=== PATIENT | female | born 1960 | race African-American/Black ===

== ENCOUNTER 2016-09-24 05:16 | Emergency (ER) | payer OTHER ==
[2016-09-24 05:34] VITALS: BMI 41.1
--- NOTE | 2016-09-24 06:04 | PDOC ---
[id number] SWELLING/LEGS Time Seen by Provider: 09/24/16 05:25 History Source: Patient Exam Limitations: No Limitations - History of Present Illness Initial Comments: 09/24/16 05:55 56yo Female patient with PmHx: HTN, and post-menopausal seizures. 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 Patient states she experienced Seizure for 2 hours & 45 mins on Tu, but did not seek any medical treatment. She reports taking Oxycarbazepine 150mg BID. Patient reports feeling fine up until this morning due to upper and lower extremity swelling. Patient denies Calcium Channel Blockers or Prednisone use at this time. Patient just recently moved from the [place] to [facility] and was getting her medications from [facility], at this time she is receiving them from [facility] and believe symptoms maybe related to change in pharmacy. Patient denies any other complaints at this time. LNMP: 3 years ago. Past History - Travel Traveled outside of the country in the last 30 days: No Close contact w/someone who was outside of country & ill: No - Past Medical History Allergies/Adverse Reactions: Allergies Allergy/AdvReac Type Severity Reaction Status Date / Time levetiracetam [From Keppra] AdvReac Verified 09/24/16 05:31 phenytoin sodium AdvReac Verified 09/24/16 05:31 [From Dilantin] phenytoin sodium extended AdvReac Verified 09/24/16 05:31 [From Dilantin] Home Medications: Ambulatory Orders Aspirin [ASA -] 81 mg PO DAILY 12/29/15 Brimonidine Tartrate [Alphagan 0.15% -] 1 drop OD BID 12/29/15 Oxcarbazepine 150 mg PO BID 12/29/15 Timolol 0.5% [Timoptic 0.5%] 1 drop OU DAILY 12/29/15 Metoprolol Tartrate [Lopressor -] 50 mg PO BID #60 tab 09/24/16 Nifedipine [Procardia Xl] 60 mg PO DAILY #30 tab 09/24/16 CVA: Yes (Right hemmohagic stroke 2005 - residual loss of left peripheral vision) HTN: Yes Hypercholesterolemia: Yes Seizures: Yes (Post-CVA) - Psycho/Social/Smoking Cessation Hx Anxiety: No Suicidal Ideation: No Smoking History: Never smoked Have you smoked in the past 12 months: No Hx Alcohol Use: No Drug/Substance Use Hx: No Substance Use Type: None Review of Systems - Review of Systems Able to Perform ROS?: Yes Is the patient limited Malagasy proficient: No Constitutional: No: Chills, Fever, Malaise, Weakness HEENTM: No: Blurred Vision, Double Vision Respiratory: No: Cough, Orthopnea, Shortness of Breath, Stridor, Wheezing Cardiac (ROS): Yes: Edema. No: Chest Pain, Lightheadedness, Palpitations, Syncope, Chest Tightness ABD/GI: No: Constipated, Diarrhea, Nausea, Poor Appetite, Poor Fluid Intake, Vomiting, Abdominal cramping : No: Burning, Dysuria, Discharge, Frequency, Flank Pain, Hematuria, Pain, Urgency Musculoskeletal: No: Back Pain Integumentary: No: Bruising, Erythema, Rash Neurological: Yes: Headache, Seizure. No: Numbness, Paresthesia, Tingling, Tremors, Weakness, Ataxia, Dizziness *Physical Exam - Vital Signs Last Vital Signs Temp Pulse Resp BP Pulse Ox 63 18 133/90 99 09/24/16 05:33 09/24/16 05:33 09/24/16 05:33 09/24/16 05:33 - Physical Exam General Appearance: Yes: Nourished, Appropriately Dressed. No: Apparent Distress, Mild Distress, Moderate Distress, Severe Distress Neck: positive: Trachea midline, Supple. negative: Rigid, Decreased range of motion, Stridor, Lymphadenopathy (R), Lymphadenopathy (L) Respiratory/Chest: positive: Lungs Clear, Normal Breath Sounds. negative: Respiratory Distress, Accessory Muscle Use, Labored Respiration, Rapid RR Cardiovascular: positive: Regular Rhythm, Regular Rate, Edema. negative: JVD, Murmur, Tachycardia Gastrointestinal/Abdominal: positive: Normal Bowel Sounds, Soft. negative: Distended, Guarding, Rebound, Tenderness Musculoskeletal: positive: Normal Inspection. negative: CVA Tenderness Extremity: positive: Normal Inspection, Normal Range of Motion, Pedal Edema, Swelling. negative: Delayed Capillary Refill, Calf Tenderness, Erythema, Inflammation Integumentary: positive: Normal Color, Dry, Warm. negative: Hives, Swelling, Bruising Neurologic: positive: inspector heating and refrigeration II-XII NML intact, Fully Oriented, Alert, Normal Mood/ Affect, Normal Response, Motor Strength 5/5 ED Treatment Course - LABORATORY CBC & Chemistry Diagram: 09/24/16 06:17 09/24/16 07:24 - RADIOLOGY Radiology Studies Ordered: Category Date Time Status HEAD CT WITHOUT CONTRAST [CT] Stat CT Scan 09/24/16 05:52 Ordered *DC/Admit/Observation/Transfer Diagnosis at time of Disposition: Edema Qualifiers: Edema type: unspecified Qualified Code(s): R60.9 - Edema, unspecified - Discharge Dispostion Disposition: HOME Condition at time of disposition: Good Admit: No - Prescriptions Prescriptions: Metoprolol Tartrate [Lopressor -] 50 mg PO BID #60 tab Nifedipine [Procardia Xl] 60 mg PO DAILY #30 tab - Referrals Referrals: Lenard Mcrae MD [Staff Physician] - Aditi Roger MD [Primary Care Provider] - - Patient Instructions Printed Discharge Instructions: DI for Peripheral Edema -- Bilateral Additional Instructions: Please follow-up with your primary doctor and Dr. Mcrae of neurology
[2016-09-24 06:28] LABS: BASOPHIL 0.5 % (0-2.0); EOSINOPHIL 1.7 % (0-4.5); MCHC 33.4 g/dl (32.0-36.0); MEAN CELL VOLUME 74.6 fl (80-96); MEAN PLT VOLUME 8.2 fl (7.5-11.1); NEUTROPHILS 52.7 % (42.8-82.8); PLATELET COUNT 367 K/MM3 (134-434); RDW 18.3 % (11.6-15.6); WHITE BLOOD COUNT 11.7 K/mm3 (4.0-10.0)
--- NOTE | 2016-09-24 07:31 | PDOC ---
History of Present Illness - General Chief Complaint: Edema Stated Complaint: SWELLING/LEGS Time Seen by Provider: 09/24/16 05:25 History Source: Patient - History of Present Illness Associated Symptoms: denies: chest pain, cough, fever/chills, nausea/vomiting, shortness of breath Past History - Past Medical History Allergies/Adverse Reactions: Allergies Allergy/AdvReac Type Severity Reaction Status Date / Time levetiracetam [From Keppra] AdvReac Verified 09/24/16 05:31 phenytoin sodium AdvReac Verified 09/24/16 05:31 [From Dilantin] phenytoin sodium extended AdvReac Verified 09/24/16 05:31 [From Dilantin] Home Medications: Ambulatory Orders Aspirin [ASA -] 81 mg PO DAILY 12/29/15 Brimonidine Tartrate [Alphagan 0.15% -] 1 drop OD BID 12/29/15 Metoprolol Tartrate [Lopressor -] 50 mg PO BID 12/29/15 Nifedipine [Procardia Xl] 60 mg PO HS 12/29/15 Oxcarbazepine 150 mg PO BID 12/29/15 Timolol 0.5% [Timoptic 0.5%] 1 drop OU DAILY 12/29/15 CVA: Yes (Right hemmohagic stroke 2006 - residual loss of left peripheral vision) HTN: Yes Hypercholesterolemia: Yes Seizures: Yes (Post-CVA) - Psycho/Social/Smoking Cessation Hx Anxiety: No Suicidal Ideation: No Smoking History: Never smoked Have you smoked in the past 12 months: No Hx Alcohol Use: No Drug/Substance Use Hx: No Substance Use Type: None Review of Systems - Review of Systems Is the patient limited Mosotho proficient: No *Physical Exam - Vital Signs Last Vital Signs Temp Pulse Resp BP Pulse Ox 63 18 133/90 99 09/24/16 05:33 09/24/16 05:33 09/24/16 05:33 09/24/16 05:33 ED Treatment Course - LABORATORY CBC & Chemistry Diagram: 09/24/16 06:17 09/24/16 06:17 - ADDITIONAL ORDERS Additional order review: Laboratory Results 09/24/16 06:17 Sodium Cancelled Potassium Cancelled Chloride Cancelled Carbon Dioxide Cancelled Anion Gap Cancelled BUN Cancelled Creatinine Cancelled Creat Clearance w eGFR Cancelled Random Glucose Cancelled Calcium Cancelled Total Bilirubin Cancelled AST Cancelled ALT Cancelled Alkaline Phosphatase Cancelled B-Natriuretic Peptide Cancelled Total Protein Cancelled Albumin Cancelled TSH Cancelled 09/24/16 06:17 RBC 5.68 H MCV 74.6 L MCHC 33.4 RDW 18.3 H MPV 8.2 Neutrophils % 52.7 Lymphocytes % 37.9 Monocytes % 7.2 Eosinophils % 1.7 Basophils % 0.5 Medical Decision Making - Medical Decision Making 09/24/16 07:29 Received signout at 7 AM 56 yo F, h/o HTN, CVA, seizure, presents with swelling to bilateral upper and lower extremities that pt states started suddenly this am. No sob or CP. No new meds. As per prior team, patient has minimal pedal edema to her lower extremities bilaterally on exam. Labs pending. Anticipate discharge if negative. Patient also reported having a breakthrough seizure several days ago that lasted for approximately 2 and a half hours, but did not come to ED. Recently moved to [facility] and does not yet have a PMD or neurologist. 09/24/16 07:38 09/24/16 07:39 On reassessment, patient appears well. Does have 1-2+ pedal edema bilaterally, non-tender and no erythema with intact pulses. No obvious swelling to upper extremities and chest/lungs clear. Patient states similar swelling occurred in the past that resolved on its own without obvious diagnosis. Patient on for seizure and states that she had a seizure 3 days ago that lasted for 2 and 1/2 hours as witnessed by family member who is currently in ED. Patient states that she was able to talk throughout her seizure. States she does have a PMD at this time but not a neurologist. Patient understands that if labs are negative , she will be discharged to follow up with Bi
--- NOTE | 2016-09-24 07:44 | PDOC ---
*Physical Exam - Vital Signs Last Vital Signs Temp Pulse Resp BP Pulse Ox 63 18 133/90 99 09/24/16 05:33 09/24/16 05:33 09/24/16 05:33 09/24/16 05:33 - Physical Exam General Appearance: Yes: Appropriately Dressed. No: Apparent Distress HEENT: positive: Normal Voice Neck: positive: Supple Respiratory/Chest: positive: Lungs Clear, Normal Breath Sounds. negative: Respiratory Distress Cardiovascular: positive: Regular Rate, S1, S2 Extremity: positive: Pedal Edema (1-2+pedal edema b/l, NT and no erythema) Integumentary: positive: Dry, Warm Neurologic: positive: Fully Oriented, Alert, Normal Mood/Affect ED Treatment Course - LABORATORY CBC & Chemistry Diagram: 09/24/16 06:17 09/24/16 07:24 - ADDITIONAL ORDERS Additional order review: Laboratory Results 09/24/16 06:17 Sodium Cancelled Potassium Cancelled Chloride Cancelled Carbon Dioxide Cancelled Anion Gap Cancelled BUN Cancelled Creatinine Cancelled Creat Clearance w eGFR Cancelled Random Glucose Cancelled Calcium Cancelled Total Bilirubin Cancelled AST Cancelled ALT Cancelled Alkaline Phosphatase Cancelled B-Natriuretic Peptide Cancelled Total Protein Cancelled Albumin Cancelled TSH Cancelled 09/24/16 06:17 RBC 5.68 H MCV 74.6 L MCHC 33.4 RDW 18.3 H MPV 8.2 Neutrophils % 52.7 Lymphocytes % 37.9 Monocytes % 7.2 Eosinophils % 1.7 Basophils % 0.5 Medical Decision Making - Medical Decision Making 09/24/16 07:43 Received signout at 7 AM 56 yo F, h/o HTN, CVA, seizure, presents with swelling to bilateral upper and lower extremities that pt states started suddenly this am. No sob or CP. No new meds. As per prior team, patient has minimal pedal edema to her lower extremities bilaterally on exam. Labs pending. Anticipate discharge if negative. Patient also reported having a breakthrough seizure several days ago that lasted for approximately 2 and a half hours, but did not come to ED. Recently moved to [facility] and does not yet have a PMD or neurologist. 09/24/16 07:38 09/24/16 07:39 On reassessment, patient appears well. Does have 1-2+ pedal edema bilaterally, non-tender and no erythema with intact pulses. No obvious swelling to upper extremities and chest/lungs clear. Patient states similar swelling occurred in the past that resolved on its own without obvious diagnosis. Patient on oxycarbamezapine for seizure and states that she had a seizure 3 days ago that lasted for 2 and 1/2 hours as witnessed by family member who is currently in ED. Patient states that she was able to talk throughout her seizure. States she does have a PMD at this time but not a neurologist. Patient understands that if labs are negative, she will be discharged to follow up with [facility] 09/24/16 07:45 09/24/16 08:41 Labs unremarkable. Patient stable for discharge at this time, to follow-up with PMD. Also given referral for Dr. Mcrae of neurology 09/24/16 08:44 *DC/Admit/Observation/Transfer Diagnosis at time of Disposition: Edema Qualifiers: Edema type: unspecified Qualified Code(s): R60.9 - Edema, unspecified - Discharge Dispostion Disposition: HOME Condition at time of disposition: Good - Referrals Referrals: Aditi Roger MD [Primary Care Provider] - Lenard Mcrae MD [Staff Physician] - - Patient Instructions Printed Discharge Instructions: DI for Peripheral Edema -- Bilateral Additional Instructions: Please follow-up with your primary doctor and Dr. Mcrae of neurology
[2016-09-24 07:50] LABS: URINE APPEARANCE CLEAR; URINE BILIRUBIN NEGATIVE (NEGATIVE); URINE BLOOD NEGATIVE (NEGATIVE); URINE COLOR COLORLESS; URINE GLUCOSE (UA) NEGATIVE (NEGATIVE); URINE KETONE NEGATIVE (NEGATIVE); URINE LEUK ESTERASE NEGATIVE (NEGATIVE); URINE NITRITE NEGATIVE (NEGATIVE); URINE PROTEIN NEGATIVE (NEGATIVE); URINE UROBILINOGEN NEGATIVE E.U./dl (0.2-1.0)
[2016-09-24 08:26] LABS: ALBUMIN 3.5 g/dl (3.4-5.0); CALCIUM 9.3 mg/dL (8.5-10.1)
[2016-09-24 08:32] LABS: BILIRUBIN,TOTAL 0.3 mg/dL (0.2-1.0); CREATININE 1.2 mg/dL (0.55-1.02); TOT PROT 7.2 g/dl (6.4-8.2)
--- NOTE | 2016-09-24 09:05 | PDOC ---
*Physical Exam - Vital Signs Last Vital Signs Temp Pulse Resp BP Pulse Ox 63 18 133/90 99 09/24/16 05:33 09/24/16 05:33 09/24/16 05:33 09/24/16 05:33 ED Treatment Course - LABORATORY CBC & Chemistry Diagram: 09/24/16 06:17 09/24/16 07:24 - ADDITIONAL ORDERS Additional order review: Laboratory Results 09/24/16 09/24/16 09/24/16 07:40 07:24 06:17 Sodium 141 Cancelled Potassium 3.8 Cancelled Chloride 104 Cancelled Carbon Dioxide 25 Cancelled Anion Gap 12 Cancelled BUN 25 H D Cancelled Creatinine 1.2 H Cancelled Creat Clearance w eGFR 46.64 Cancelled Random Glucose 89 Cancelled Calcium 9.3 Cancelled Total Bilirubin 0.3 D Cancelled AST 12 L Cancelled ALT 16 Cancelled Alkaline Phosphatase 81 Cancelled B-Natriuretic Peptide 73.47 Cancelled Total Protein 7.2 Cancelled Albumin 3.5 Cancelled TSH Cancelled Urine Color Colorless Urine Appearance Clear Urine pH 6.0 Ur Specific [place] 1.010 Urine Protein Negative Urine Glucose (UA) Negative Urine Ketones Negative Urine Blood Negative Urine Nitrite Negative Urine Bilirubin Negative Urine Urobilinogen Negative Ur Leukocyte Esterase Negative 09/24/16 06:17 RBC 5.68 H MCV 74.6 L MCHC 33.4 RDW 18.3 H MPV 8.2 Neutrophils % 52.7 Lymphocytes % 37.9 Monocytes % 7.2 Eosinophils % 1.7 Basophils % 0.5 *DC/Admit/Observation/Transfer Diagnosis at time of Disposition: Edema Qualifiers: Edema type: unspecified Qualified Code(s): R60.9 - Edema, unspecified - Discharge Dispostion Disposition: HOME Condition at time of disposition: Good - Prescriptions Prescriptions: Metoprolol Tartrate [Lopressor -] 50 mg PO BID #60 tab Nifedipine [Procardia Xl] 60 mg PO DAILY #30 tab - Referrals Referrals: Lenard Mcrae MD [Staff Physician] - Aditi Roger MD [Primary Care Provider] - - Patient Instructions Printed Discharge Instructions: DI for Peripheral Edema -- Bilateral Additional Instructions: Please follow-up with your primary doctor and Dr. Mcrae of neurology - Post Discharge Activity
[2016-09-24 09:11] VITALS: BP 132/96; PULSE 60
--- NOTE | 2016-09-24 10:20 | PDOC ---
*Physical Exam - Vital Signs Last Vital Signs Temp Pulse Resp BP Pulse Ox 60 18 132/96 100 09/24/16 09:10 09/24/16 09:10 09/24/16 09:10 09/24/16 09:10 ED Treatment Course - LABORATORY CBC & Chemistry Diagram: 09/24/16 06:17 09/24/16 07:24 - ADDITIONAL ORDERS Additional order review: Laboratory Results 09/24/16 09/24/16 09/24/16 07:40 07:24 06:17 Sodium 141 Cancelled Potassium 3.8 Cancelled Chloride 104 Cancelled Carbon Dioxide 25 Cancelled Anion Gap 12 Cancelled BUN 25 H D Cancelled Creatinine 1.2 H Cancelled Creat Clearance w eGFR 46.64 Cancelled Random Glucose 89 Cancelled Calcium 9.3 Cancelled Total Bilirubin 0.3 D Cancelled AST 12 L Cancelled ALT 16 Cancelled Alkaline Phosphatase 81 Cancelled B-Natriuretic Peptide 73.47 Cancelled Total Protein 7.2 Cancelled Albumin 3.5 Cancelled TSH Cancelled Urine Color Colorless Urine Appearance Clear Urine pH 6.0 Ur Specific [place] 1.010 Urine Protein Negative Urine Glucose (UA) Negative Urine Ketones Negative Urine Blood Negative Urine Nitrite Negative Urine Bilirubin Negative Urine Urobilinogen Negative Ur Leukocyte Esterase Negative 09/24/16 06:17 RBC 5.68 H MCV 74.6 L MCHC 33.4 RDW 18.3 H MPV 8.2 Neutrophils % 52.7 Lymphocytes % 37.9 Monocytes % 7.2 Eosinophils % 1.7 Basophils % 0.5 *DC/Admit/Observation/Transfer Diagnosis at time of Disposition: Edema Qualifiers: Edema type: unspecified Qualified Code(s): R60.9 - Edema, unspecified - Discharge Dispostion Disposition: HOME Condition at time of disposition: Good - Prescriptions Prescriptions: Metoprolol Tartrate [Lopressor -] 50 mg PO BID #60 tab Nifedipine [Procardia Xl] 60 mg PO DAILY #30 tab - Referrals Referrals: Lenard Mcrae MD [Staff Physician] - Aditi Roger MD [Primary Care Provider] - - Patient Instructions Printed Discharge Instructions: DI for Peripheral Edema -- Bilateral Additional Instructions: Please follow-up with your primary doctor and Dr. Mcrae of neurology - Post Discharge Activity
== END 2016-09-24 09:11 | disposition home or self-care (01) ==
LOC: JER 05:16
DX: R60.0 Localized edema (principal); I10 Essential (primary) hypertension; G40.509 Epileptic seizures related to external causes, not intractable, without status epilepticus; I69.898 Other sequelae of other cerebrovascular disease
CPT/HCPCS: 36415; 70450-TC; 80053; 81003; 83880; 85025; 99282-25

== ENCOUNTER 2017-10-25 18:48 | Observation (INO) | payer OTHER ==
--- NOTE | 2017-10-25 19:59 | PDOC ---
History of Present Illness - General Chief Complaint: CVA/TIA Stated Complaint: CVA/TIA Time Seen by Provider: 10/25/17 18:52 History Source: Patient, EMS Exam Limitations: Clinical Condition - History of Present Illness Initial Comments: 10/25/17 19:51 The patient is a 57F with a PMH of HTN, and post-menopausal seizures. 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 The patient states that she went to dialysis and felt a seizure coming. She had an unwitnessed fall/seizure. When EMS arrived, she was A&Ox3 but was hypertensive. In the EMS truck, she began to seize and was given 5mg IM versed. The patient was not able to give any history 2/2 to drowsiness. NIH Stroke Scale - Initial Evaluation Level of consciousness: Alert Ask patient the month and their age: Answers both correctly Ask patient to open & close eyes; make fist and let go: Obeys both correctly Best gaze (horizontal eye movement): Normal Visual field testing: No visual field loss Facial paresis (Show teeth/raise eyebrows/close eyes tight): Normal symmetrical movement Motor Function: Left Arm: Normal Motor Function: Right Arm: Normal (extends arm 90 (or 45) degrees for 10 seconds without drift Motor Function: Left Leg: Normal (extends leg 30 degrees for 5 seconds without drift) Motor Function: Right Leg: Normal (extends leg 30 degrees for 5 seconds without drift) Limb Ataxia: No ataxia Sensory(Use pinprick test arms,legs,trunk,face/side to side): Normal Best language (Describe picture, name items, read sentences): No Aphasia Dysarthria (read several words): Normal articulation Extinction and Inattention: No abnormality - Total Score NIH Stroke Scale Score: 0 Past History - Past Medical History Allergies/Adverse Reactions: Allergies Allergy/AdvReac Type Severity Reaction Status Date / Time levetiracetam [From Keppra] AdvReac Verified 09/24/16 05:31 phenytoin sodium AdvReac Verified 09/24/16 05:31 [From Dilantin] phenytoin sodium extended AdvReac Verified 09/24/16 05:31 [From Dilantin] Home Medications: Ambulatory Orders Aspirin [ASA -] 81 mg PO DAILY 12/29/15 Brimonidine Tartrate [Alphagan 0.15% -] 1 drop OD BID #1 bottle 10/26/17 Metoprolol Tartrate [Lopressor -] 50 mg PO BID #60 tab 10/26/17 Nifedipine [Procardia Xl] 60 mg PO DAILY #30 tab 10/26/17 Oxcarbazepine 150 mg PO BID #60 tablet 10/26/17 Timolol 0.5% [Timoptic 0.5%] 1 drop OU DAILY #1 bottle 10/26/17 CVA: Yes (Right hemmohagic stroke 2005 - residual loss of left peripheral vision) COPD: No HTN: Yes Hypercholesterolemia: Yes Seizures: Yes (Post-CVA) - Suicide/Smoking/Psychosocial Hx Smoking History: Unknown if ever smoked Have you smoked in the past 12 months: No Information on smoking cessation initiated: No Hx Alcohol Use: No Drug/Substance Use Hx: No Substance Use Type: None Review of Systems - Review of Systems Able to Perform ROS?: Yes (drowsy) Comments:: 10/25/17 20:14 GENERAL/CONSTITUTIONAL: No fever or chills. No weakness. HEAD, EYES, EARS, NOSE AND THROAT: No change in vision. No ear pain or discharge. No sore throat. CARDIOVASCULAR: No chest pain, palpitations, or lightheadedness. RESPIRATORY: No cough, wheezing, shortness of breath, or hemoptysis. GASTROINTESTINAL: No nausea, vomiting, diarrhea, constipation, or abdominal pain. GENITOURINARY: No dysuria, frequency, hematuria, or change in urination. MUSCULOSKELETAL: No joint or muscle swelling or pain. No neck or back pain. SKIN: No rash or lesions. NEUROLOGIC: Positive for seizures. No numbness, tingling, weakness, loss of consciousness, or change in strength/sensation. ENDOCRINE: No increased thirst. No abnormal weight change. HEMATOLOGIC/LYMPHATIC: No anemia, easy bleeding, or history of blood clots. ALLERGIC/IMMUNOLOGIC: No hives or skin allergy. Is the patient limited Albanian proficient: No *Physical Exam - Vital Signs Last Vital Signs Temp Pulse Resp BP Pulse Ox 78 20 0/0 100 10/25/17 19:08 10/25/17 19:08 10/25/17 19:08 10/25/17 19:08 - Physical Exam Comments: 10/25/17 20:19 GENERAL: Well developed, well nourished. Awake and alert. No acute distress. HEENT: Normocephalic, atraumatic. Hearing grossly normal. Moist mucous membranes. PERRLA, EOMI. No conjunctival pallor. Sclera are non-icteric. Oropharynx is clear. NECK: Supple. Full ROM. No JVD. CARDIOVASCULAR: Regular rate and rhythm. No murmurs, rubs, or gallops. PULMONARY: No evidence of respiratory distress. Lungs clear to auscultation bilaterally. No wheezing, rales or rhonchi. ABDOMINAL: Soft. Non-tender. Non-distended. No rebound or guarding. GENITOURINARY: No CVA tenderness bilaterally. MUSCULOSKELETAL: Normal range of motion at all joints. No bony deformities or tenderness. EXTREMITIES: No cyanosis. No clubbing. No edema. No calf tenderness. SKIN: Warm and dry. Normal capillary refill. No rashes. No jaundice. NEUROLOGICAL: Alert, awake, appropriate. Cranial nerves 2-12 intact. No deficits to light touch and temperature in face, upper extremities and lower extremities. No motor deficits in the in face, upper extremities and lower extremities. Finger to nose normal bilaterally. Normal speech. Gait is normal without ataxia. PSYCHIATRIC: Cooperative. Good eye contact. Appropriate mood and affect. Heart Score/ECG Review #1 General ECG Interpretation: Sinus Rhythm Compared to previous ECG there are: No significant change 10/25/17 20:23 NSR Vent rate 75 OR 162 QRS 84 QTc 482 No acute ischemic changes noted. QT prolonged. ED Treatment Course - LABORATORY CBC & Chemistry Diagram: 10/25/17 21:20 10/25/17 21:20 - RADIOLOGY Radiology Studies Ordered: Category Date Time Status HEAD CT (STROKE) [CT] Stat CT Scan 10/25/17 18:53 Completed Medical Decision Making - Medical Decision Making 10/25/17 20:20 The patient is a 57F with a PMH of hemorrhagic CVA in 2006 and seizures who presented after having an unwitnessed fall. On arrival, her history was not clear and 2/2 to her inability to answer questions and her history of CVA, a code marina was called. CT was negative. NIHSS is 0. The patient was drowsy from 5IM versed given by EMS. On my exam, she is neurologically intact and has no FND. This is much more likely to be a seizure as the patient 1) knew she was feeling a seizure prior to arrival to dialysis, 2) had a seizure with EMS. Pending her labs/imaging. 10/25/17 22:52 My attending has admitted the patient. Will consult Dr. Mcrae. I spoke with Dr. 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 Pt informed and understands she will be staying. *DC/Admit/Observation/Transfer Diagnosis at time of Disposition: Cerebrovascular accident (CVA) Qualifiers: CVA mechanism: other Qualified Code(s): I63.8 - Other cerebral infarction - Discharge Dispostion Disposition: HOME Condition at time of disposition: Good - Prescriptions - Referrals - Patient Instructions - Post Discharge Activity
[2017-10-25 20:55] LABS: URINE APPEARANCE CLEAR; URINE BILIRUBIN NEGATIVE (<2.0 mg/dL); URINE COLOR LTYELLOW; URINE GLUCOSE (UA) NEGATIVE (NEGATIVE); URINE KETONE TRACE (NEGATIVE); URINE LEUK ESTERASE TRACE (NEGATIVE); URINE NITRITE NEGATIVE (NEGATIVE); URINE UROBILINOGEN NEGATIVE mg/dL (0.2-1.0)
[2017-10-25 20:56] LABS: URINE PROTEIN 2+ (NEGATIVE)
[2017-10-25 20:59] LABS: EPI CELLS RARE /HPF (FEW); URINE BACTERIA RARE /hpf (NONE SEEN); URINE HYALINE CAST 1 /lpf; URINE MUCUS RARE
[2017-10-25] MEDS ORDERED: OXcarbazepine 150 MG TABLET (UD) PO ONE (21:26)
[2017-10-25 21:32] LABS: BASO % 0.4 % (0-2.0); EOS % 0.2 % (0-4.5); HEMATOCRIT 44.2 % (32.4-45.2); HEMOGLOBIN 14.8 GM/dL (10.7-15.3); LYMPH % 12.7 % (8-40); MCH 25.8 pg (25.7-33.7); MCHC 33.4 g/dl (32.0-36.0); MEAN CELL VOLUME 77.3 fl (80-96); MEAN PLT VOLUME 8.3 fl (7.5-11.1); MONO % 2.9 % (3.8-10.2); NEUT % 83.8 % (42.8-82.8); PLATELET COUNT 339 K/MM3 (134-434); RBC 5.72 M/mm3 (3.60-5.2); RDW 17.1 % (11.6-15.6); WHITE BLOOD COUNT 8.1 K/mm3 (4.0-10.0)
[2017-10-25] MEDS ORDERED: METOPROLOL TARTRATE 50 MG TABLET (FP) ONE (21:32)
[2017-10-25 21:42] LABS: INR 0.93 (0.82-1.09); PROTHROMBIN TIME (PATIENT) 10.5 SEC (9.98-11.88)
[2017-10-25] MEDS: SODIUM CHLORIDE 1,000 ML IV SCH (21:52)
[2017-10-25] MEDS ORDERED: METOPROLOL TARTRATE 50 MG TABLET (FP) PO SCH (22:00)
[2017-10-25 22:09] LABS: ALBUMIN 3.9 g/dl (3.4-5.0); ANION GAP 5 (8-16); BILIRUBIN,TOTAL 0.3 mg/dL (0.2-1.0); BLOOD UREA NITROGEN 19 mg/dL (7-18); CALCIUM 8.9 mg/dL (8.5-10.1); CHLORIDE 106 mmol/L (98-107); CHOLESTEROL 279 mg/dL (50-200); CO2 29 mmol/L (21-32); CREATININE 1.1 mg/dL (0.55-1.02); GLUCOSE,RANDOM 91 mg/dL (74-106); POTASSIUM 4.1 mmol/L (3.5-5.1); SGOT/AST 11 U/L (15-37); SGPT/ALT 21 U/L (12-78); SODIUM 140 mmol/L (136-145); TRIGLYCERIDES 100 mg/dL (35-160)
[2017-10-25 22:11] LABS: ALK PHOS 87 U/L (45-117); HDL CHOLESTEROL 93 mg/dL (40-60)
--- NOTE | 2017-10-25 22:11 | PDOC ---
Attending Attestation - Resident Resident Name: Olvin Monsivais - ED Attending Attestation I have performed the following: I have examined & evaluated the patient, The case was reviewed & discussed with the resident, I agree w/resident's findings & plan, Exceptions are as noted - HPI HPI: 10/25/17 22:06 The patient is a 57 year old female with a significant PMH of HTN, seizures d/o , and hemorrhagic CVA in 2006 who presents to the emergency department with seizures. The patient states she was taking her mother to dialysis when she felt like she was about to have a seizure. Patient subsequently lost consciousness. Pt states that she lowered herself to the floor prior to losing consciousness. Believes she had a seizure at this time, but it was unwitnessed. When pt awoke, she states that her left hand felt significantly weaker than her right. EMS arrived at this time, and pt patient had another witnessed seizure en route and was administered 5mg versed IM. The patient reports she has not seized since May. She reports compliance with her trileptol, which normally controls her seizures well. The patient denies chest pain, shortness of breath, headache and dizziness. Denies fever, chills, nausea, vomit, diarrhea and constipation. Denies dysuria, frequency, urgency and hematuria. Allergies: Allergies to Dilantin & Keppra w. 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 Social history: No reported alcohol, drug, or cigarette use. PCP: Dr. Roger " - Physicial Exam PE: 10/25/17 22:09 "GENERAL: Awake, alert, and fully oriented, in no acute distress. Generally weak appearing. HEAD: No signs of trauma EYES: PERRLA, EOMI, sclera anicteric, conjunctiva clear ENT: Auricles normal inspection, hearing grossly normal, nares patent, oropharynx clear without exudates. Moist mucosa NECK: Nontender, no stepoffs, Normal ROM, supple, no lymphadenopathy, JVD, or masses LUNGS: Breath sounds equal, clear to auscultation bilaterally. No wheezes, and no crackles HEART: Regular rate and rhythm, normal S1 and S2, no murmurs, rubs or gallops ABDOMEN: Soft, normoactive bowel sounds. No guarding, no rebound. No masses EXTREMITIES: Normal range of motion, no edema. No clubbing or cyanosis. No cords, erythema, or tenderness NEUROLOGICAL: Cranial nerves II through XII intact. 5/5 strength and sensation in all extremities, Normal speech, normal gait, normal cerebellar function SKIN: Warm, Dry, normal turgor, no rashes or lesions noted. " - Medical Decision Making 10/25/17 22:09 57 F with seizure disorder presents to ED after having 2 seizures. Pt also reports L hand weakness immediately following seizure, though she has normal strength on exam in ER. This may represent David's paralysis, but TIA is a consideration as well. Pt with no neuro deficits currently. No additional seizures in ED. Will w/u for infectious process or metabolic derangement as seizure trigger. - Labs - CT head - CXR, UA - Neuro consult (Dr. Mcrae)
[2017-10-25] MEDS ORDERED: NIFEdipine E.R 60 MG TABLET (UD) PO ONE (22:17)
--- NOTE | 2017-10-26 00:11 | HP ---
CHIEF COMPLAINT: seizure PCP: Kana Neuro: Clementina HISTORY OF PRESENT ILLNESS: This is a 57 year old female with a past medical history of HTN, hemorrhagic CVA with resulting seizure d/o who presented to the ED for seizure activity. Pt reports that she took her mother to dialysis when she felt as if a seizure coming on so she sat down and then woke up later, unresponsive episode was unwitnessed. EMS was activated and pt had another seizure en route to hospital for which she received versed. after the seizure pt felt as if left hand was weaker than the right. Upon exam pt feeling fine, just sleepy. Left hand weakness has resolved and no further focal weakness present. ER course was notable for: (1) CT with no acute changes (2) BP elevated but has improved Recent Travel: pt denies PAST MEDICAL HISTORY: HTN, hemorrhagic CVA 2005 with seizure disorder since, HLD, last seizure around one year ago PAST SURGICAL HISTORY: pt denies Social History: Smoking: pt denies Alcohol: pt denies Drugs: pt denies Family History: mother alive with HTN, ESRD father age 83, smoking related 4 siblings alive and well, no PMH Allergies levetiracetam [From Keppra] Adverse Reaction (Verified 09/24/16 05:31) Pete Sandeep like reaction phenytoin sodium [From Dilantin] Adverse Reaction (Verified 09/24/16 05:31) Pete Sandeep like reaction phenytoin sodium extended [From Dilantin] Adverse Reaction (Verified 09/24/16 05 :31) HOME MEDICATIONS: 3 Medication Instructions Recorded Aspirin [ASA -] 81 mg PO DAILY 12/29/15 Brimonidine Tartrate [Alphagan 1 drop OD BID 12/29/15 0.15% -] Oxcarbazepine 150 mg PO BID 12/29/15 Timolol 0.5% [Timoptic 0.5%] 1 drop OU DAILY 12/29/15 Metoprolol Tartrate [Lopressor -] 50 mg PO BID #60 tab 09/24/16 Nifedipine [Procardia Xl] 60 mg PO DAILY #30 tab 09/24/16 REVIEW OF SYSTEMS CONSTITUTIONAL: Absent: fever, chills, diaphoresis, generalized weakness, malaise, loss of appetite, weight change HEENT: Absent: rhinorrhea, nasal congestion, throat pain, throat swelling, difficulty swallowing, mouth swelling, ear pain, eye pain, visual changes CARDIOVASCULAR: Absent: chest pain, syncope, palpitations, irregular heart rate, lightheadedness , peripheral edema RESPIRATORY: Absent: cough, shortness of breath, dyspnea with exertion, orthopnea, wheezing, stridor, hemoptysis GASTROINTESTINAL: Absent: abdominal pain, abdominal distension, nausea, vomiting, diarrhea, constipation, melena, hematochezia GENITOURINARY: Absent: dysuria, frequency, urgency, hesitancy, hematuria, flank pain, genital pain MUSCULOSKELETAL: Absent: myalgia, arthralgia, joint swelling, back pain, neck pain SKIN: Absent: rash, itching, pallor HEMATOLOGIC/IMMUNOLOGIC: Absent: easy bleeding, easy bruising, lymphadenopathy, frequent infections ENDOCRINE: Absent: unexplained weight gain, unexplained weight loss, heat intolerance, cold intolerance NEUROLOGIC: Present: seizure Absent: headache, focal weakness or paresthesias, dizziness, unsteady gait, mental status changes, bladder or bowel incontinence PSYCHIATRIC: Absent: anxiety, depression, suicidal or homicidal ideation, hallucinations. PHYSICAL EXAMINATION Vital Signs - 24 hr 3 10/25/17 10/25/17 19:08 19:35 Temperature 97.7 F Pulse Rate 78 Pulse Rate [ 72 Left] Respiratory 20 Rate Blood Pressure 0/0 Blood Pressure 171/121 [Right Arm] O2 Sat by Pulse 100 Oximetry (%) GENERAL: Awake, alert, and fully oriented, in no acute distress. HEAD: Normal with no signs of trauma. EYES: Pupils equal, round and reactive to light, extraocular movements intact, sclera anicteric, conjunctiva clear. No lid lag. EARS, NOSE, THROAT: Ears normal, nares patent, oropharynx clear without exudates. Moist mucous membranes. NECK: Normal range of motion, supple without lymphadenopathy, JVD, or masses. LUNGS: Breath sounds equal, clear to auscultation bilaterally. No wheezes, and no crackles. No accessory muscle use. HEART: Regular rate and rhythm, normal S1 and S2 without murmur, rub or gallop. ABDOMEN: Soft, nontender, not distended, normoactive bowel sounds, no guarding, no rebound, no masses. No hepatomegaly or splenomegaly. MUSCULOSKELETAL: Normal range of motion at all joints. No bony deformities or tenderness. No CVA tenderness. UPPER EXTREMITIES: 2+ pulses, warm, well-perfused. No cyanosis. No clubbing. No peripheral edema. LOWER EXTREMITIES: 2+ pulses, warm, well-perfused. No calf tenderness. No peripheral edema. NEUROLOGICAL: Cranial nerves II-XII intact. Normal speech. Normal gait. PSYCHIATRIC: Cooperative. Good eye contact. Appropriate mood and affect. SKIN: Warm, dry, normal turgor, no rashes or lesions noted, normal capillary refill. Laboratory Results - last 24 hr 3 10/25/17 10/25/17 10/25/17 20:45 21:20 21:20 WBC 8.1 D RBC 5.72 H Hgb 14.8 Hct 44.2 MCV 77.3 L MCH 25.8 MCHC 33.4 RDW 17.1 H Plt Count 339 MPV 8.3 Neutrophils % 83.8 H D Lymphocytes % 12.7 D Monocytes % 2.9 L Eosinophils % 0.2 D Basophils % 0.4 PT with INR 10.50 INR 0.93 Sodium Potassium Chloride Carbon Dioxide Anion Gap BUN Creatinine Creat Clearance w eGFR Random Glucose Calcium Total Bilirubin AST ALT Alkaline Phosphatase Creatine Kinase Troponin I Total Protein Albumin Triglycerides Cholesterol Total LDL Cholesterol HDL Cholesterol Urine Color Ltyellow Urine Appearance Clear Urine pH 6.0 Ur Specific [place] 1.012 Urine Protein 2+ H Urine Glucose (UA) Negative Urine Ketones Trace H Urine Blood Negative Urine Nitrite Negative Urine Bilirubin Negative Urine Urobilinogen Negative Ur Leukocyte Esterase Trace Urine WBC (Auto) 3 Urine RBC (Auto) 1 Ur Epithelial Cells Rare Urine Bacteria Rare Hyaline Casts 1 Urine Mucus Rare Blood Type Antibody Screen 3 10/25/17 10/25/17 21:20 21:20 WBC RBC Hgb Hct MCV MCH MCHC RDW Plt Count MPV Neutrophils % Lymphocytes % Monocytes % Eosinophils % Basophils % PT with INR INR Sodium 140 Potassium 4.1 Chloride 106 Carbon Dioxide 29 Anion Gap 5 L BUN 19 H Creatinine 1.1 H Creat Clearance w eGFR 51.38 Random Glucose 91 Calcium 8.9 Total Bilirubin 0.3 AST 11 L ALT 21 Alkaline Phosphatase 87 Creatine Kinase 149 Troponin I < 0.02 Total Protein 8.0 Albumin 3.9 Triglycerides 100 Cholesterol 279 H Total LDL Cholesterol 159 H HDL Cholesterol 93 H Urine Color Urine Appearance Urine pH Ur Specific [place] Urine Protein Urine Glucose (UA) Urine Ketones Urine Blood Urine Nitrite Urine Bilirubin Urine Urobilinogen Ur Leukocyte Esterase Urine WBC (Auto) Urine RBC (Auto) Ur Epithelial Cells Urine Bacteria Hyaline Casts Urine Mucus Blood Type O POSITIVE Antibody Screen Negative ECG Normal sinus rhtyhm vent rate 75, QTC 482 minimal voltage criteria for LVH No acute ST/T wave changes Radiology Reports CT head, non contrast Impression: No definite CT evidence of acute intracranial pathology. Right parietal encephalomalacia. Reported By: Tony Eng MD 10/25/171910 ASSESSMENT/PLAN: 57yF with PMH HTN, hemorrhagic CVA 2005, seizure disorder since, HLD, last seizure around one year ago presented to the ED s/p seizure. 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 glaucoma - cont home meds DVT PPX - deferred ,anticipated LOS less than 48 h FEN - tolerating po - bmp in am - low sodium diet as tolerated Dispo: pt currently requires further observation for management of her acute medical consdition. Visit type - Emergency Visit Emergency Visit: Yes ED Registration Date: 10/25/17 Care time: The patient presented to the Emergency Department on the above date and was hospitalized for further evaluation of their emergent condition. - New Patient This patient is new to me today: Yes Date on this admission: 10/25/17 - Critical Care Critical Care patient: No Hospitalist Screening - Colonoscopy Questionnaire Colonoscopy Questionnaire: Colonoscopy Questionnaire - Patient: 50 - 75 years old and never had a screening colonoscopy: No History of colon or rectal polyps, or CA: No History of IBD, Crohn's disease or UC: No History of abdominal radiation therapy as a child: No - Relative: 1 with colon or rectal CA, or polyps at age 60 or younger: No Colon or rectal CA diagnosed at age 45 or younger: No Multiple relatives with colon or rectal CA: No - Outcome: Screening Result: Negative Screen
[2017-10-26] MEDS: SODIUM CHLORIDE 1,000 ML IV SCH (02:52)
[2017-10-26 04:16] VITALS: BMI 39.0
[2017-10-26] MEDS ORDERED: PT OWN MED DRAWER 7, Y5N ONE ×2 (09:41→17:03)
--- NOTE | 2017-10-26 09:53 | CONSULT ---
Consult - text type - Consultation Consultation Note: Neurology History of Present Illness The patient is a 57F with a PMH of HTN, and post-menopausal seizures. 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 I was contacted by the ER and spoke to them last night. Reportedly, felt a seizure coming and had an unwitnessed fall/seizure. When EMS arrived, she was A&Ox3 but was hypertensive. In the EMS truck, she began to seize and was given 5mg IM versed. CT head completed and without acute changes. THis AM, she is at her baseline without deficits. Received hydration overnight. She is on trileptal and I asked level to be sent off. Discussed with her discharge as she remains stable and she would like this. Had recent EEG per patient in office so would not need to repeat. Can have repeat as outpatient if needed. She was in agreement. Past History - Past Medical History Allergies/Adverse Reactions: Allergies Allergy/AdvReac Type Severity Reaction Status Date / Time levetiracetam [From Keppra] AdvReac Verified 09/24/16 05:31 phenytoin sodium AdvReac Verified 09/24/16 05:31 [From Dilantin] phenytoin sodium extended AdvReac Verified 09/24/16 05:31 [From Dilantin] Home Medications: Ambulatory Orders Aspirin [ASA -] 81 mg PO DAILY 12/29/15 Brimonidine Tartrate [Alphagan 0.15% -] 1 drop OD BID 12/29/15 Oxcarbazepine 150 mg PO BID 12/29/15 Timolol 0.5% [Timoptic 0.5%] 1 drop OU DAILY 12/29/15 Metoprolol Tartrate [Lopressor -] 50 mg PO BID #60 tab 09/24/16 Nifedipine [Procardia Xl] 60 mg PO DAILY #30 tab 09/24/16 CVA: Yes (Right hemmohagic stroke 2005 - residual loss of left peripheral vision) COPD: No HTN: Yes Hypercholesterolemia: Yes Seizures: Yes (Post-CVA) - Suicide/Smoking/Psychosocial Hx Smoking History: Unknown if ever smoked Have you smoked in the past 12 months: No Information on smoking cessation initiated: No Hx Alcohol Use: No Drug/Substance Use Hx: No Substance Use Type: None Review of Systems GENERAL/CONSTITUTIONAL: No fever or chills. No weakness. HEAD, EYES, EARS, NOSE AND THROAT: No change in vision. No ear pain or discharge. No sore throat. CARDIOVASCULAR: No chest pain, palpitations, or lightheadedness. RESPIRATORY: No cough, wheezing, shortness of breath, or hemoptysis. GASTROINTESTINAL: No nausea, vomiting, diarrhea, constipation, or abdominal pain. GENITOURINARY: No dysuria, frequency, hematuria, or change in urination. MUSCULOSKELETAL: No joint or muscle swelling or pain. No neck or back pain. SKIN: No rash or lesions. NEUROLOGIC: Positive for seizures. No numbness, tingling, weakness, loss of consciousness, or change in strength/sensation. ENDOCRINE: No increased thirst. No abnormal weight change. HEMATOLOGIC/LYMPHATIC: No anemia, easy bleeding, or history of blood clots. ALLERGIC/IMMUNOLOGIC: No hives or skin allergy. Is the patient limited Green[place]ic proficient: No *Physical Exam Vital Signs Temperature 97.8 F 10/26/17 07:02 Pulse Rate 68 10/26/17 07:02 Respiratory Rate 20 10/26/17 07:02 Blood Pressure 137/90 10/26/17 07:02 O2 Sat by Pulse Oximetry (%) 99 10/26/17 00:20 GENERAL: Well developed, well nourished. Awake and alert. No acute distress. HEENT: Normocephalic, atraumatic. Hearing grossly normal. Moist mucous membranes. PERRLA, EOMI. No conjunctival pallor. Sclera are non-icteric. Oropharynx is clear. NECK: Supple. Full ROM. No JVD. CARDIOVASCULAR: Regular rate and rhythm. No murmurs, rubs, or gallops. PULMONARY: No evidence of respiratory distress. Lungs clear to auscultation bilaterally. No wheezing, rales or rhonchi. ABDOMINAL: Soft. Non-tender. Non-distended. No rebound or guarding. GENITOURINARY: No CVA tenderness bilaterally. MUSCULOSKELETAL: Normal range of motion at all joints. No bony deformities or tenderness. EXTREMITIES: No cyanosis. No clubbing. No edema. No calf tenderness. SKIN: Warm and dry. Normal capillary refill. No rashes. No jaundice. NEUROLOGICAL: Alert, awake, appropriate. Cranial nerves 2-12 intact. No deficits to light touch and temperature in face, upper extremities and lower extremities. No motor deficits in the in face, upper extremities and lower extremities. Finger to nose normal bilaterally. Normal speech. Gait is normal without ataxia. PSYCHIATRIC: Cooperative. Good eye contact. Appropriate mood and affect. CBCD WBC 8.1 K/mm3 (4.0-10.0) D 10/25/17 21:20 RBC 5.72 M/mm3 (3.60-5.2) H 10/25/17 21:20 Hgb 14.8 GM/dL (10.7-15.3) 10/25/17 21:20 Hct 44.2 % (32.4-45.2) 10/25/17 21:20 MCV 77.3 fl (80-96) L 10/25/17 21:20 MCHC 33.4 g/dl (32.0-36.0) 10/25/17 21:20 RDW 17.1 % (11.6-15.6) H 10/25/17 21:20 Plt Count 339 K/MM3 (134-434) 10/25/17 21:20 MPV 8.3 fl (7.5-11.1) 10/25/17 21:20 CMP Sodium 140 mmol/L (136-145) 10/25/17 21:20 Potassium 4.1 mmol/L (3.5-5.1) 10/25/17 21:20 Chloride 106 mmol/L (98-107) 10/25/17 21:20 Carbon Dioxide 29 mmol/L (21-32) 10/25/17 21:20 Anion Gap 5 (8-16) L 10/25/17 21:20 BUN 19 mg/dL (7-18) H 10/25/17 21:20 Creatinine 1.1 mg/dL (0.55-1.02) H 10/25/17 21:20 Creat Clearance w eGFR 51.38 (>60) 10/25/17 21:20 Random Glucose 91 mg/dL (74-106) 10/25/17 21:20 Calcium 8.9 mg/dL (8.5-10.1) 10/25/17 21:20 Total Bilirubin 0.3 mg/dL (0.2-1.0) 10/25/17 21:20 AST 11 U/L (15-37) L 10/25/17 21:20 ALT 21 U/L (12-78) 10/25/17 21:20 Alkaline Phosphatase 87 U/L (45-117) 10/25/17 21:20 Total Protein 8.0 g/dl (6.4-8.2) 10/25/17 21:20 Albumin 3.9 g/dl (3.4-5.0) 10/25/17 21:20 CARDIAC ENZYMES Creatine Kinase 149 IU/L (26-192) 10/25/17 21:20 Troponin I < 0.02 ng/ml (0.00-0.05) 10/25/17 21:20 - RADIOLOGY Ct head reviewed Medical Decision Making 57F with a PMH of HTN, and post-menopausal seizures. 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 I was contacted by the ER and spoke to them last night. Reportedly, felt a seizure coming and had an unwitnessed fall/seizure. When EMS arrived, she was A&Ox3 but was hypertensive. In the EMS truck, she began to seize and was given 5mg IM versed. CT head completed and without acute changes. THis AM, she is at her baseline without deficits. Received hydration overnight. She is on trileptal and I asked level to be sent off. Discussed with her discharge as she remains stable and she would like this. Had recent EEG per patient in office so would not need to repeat. Can have repeat as outpatient if needed. She was in agreement.
[2017-10-26] MEDS ORDERED: TIMOLOL 0.5% OPHTHALMIC SOL 5 ML BOTTLE OU SCH (10:00)
[2017-10-26] MEDS ORDERED: ASPIRIN 81 MG CHEWABLE TABLETS PO SCH (10:00)
[2017-10-26] MEDS ORDERED: METOPROLOL TARTRATE 50 MG TABLET (FP) PO SCH (10:00)
[2017-10-26] MEDS ORDERED: OXcarbazepine 150 MG TABLET (UD) PO SCH (10:00)
[2017-10-26] MEDS ORDERED: NIFEdipine E.R 60 MG TABLET (UD) PO SCH (10:00)
[2017-10-26] MEDS ORDERED: BRIMONIDINE TARTRATE 0.15% OPHTHALMIC 5 ML BOTTLE OD SCH (10:00)
--- NOTE | 2017-10-26 10:34 | EKG ---
Test Reason : Blood Pressure : / mmHG Vent. Rate : 075 BPM Atrial Rate : 075 BPM P-R Int : 162 ms QRS Dur : 084 ms QT Int : 432 ms P-R-T Axes : 049 015 061 degrees QTc Int : 482 ms NORMAL SINUS RHYTHM MINIMAL VOLTAGE CRITERIA FOR LVH, MAY BE NORMAL VARIANT PROLONGED QT ABNORMAL ECG WHEN COMPARED WITH ECG OF 29-DEC-2015 14:35, NO SIGNIFICANT CHANGE WAS FOUND Confirmed by MD Ryder, Alexandre ([id number]) on 10/26/2017 10:33:43 AM Referred By: Confirmed By:Alexandre Soler MD
--- NOTE | 2017-10-26 13:35 | DS ---
Physical Examination Vital Signs: Vital Signs Temperature 36.6 C 10/26/17 11:00 Pulse Rate 79 10/26/17 11:00 Respiratory Rate 18 10/26/17 11:00 Blood Pressure 122/84 10/26/17 11:00 O2 Sat by Pulse Oximetry (%) 98 10/26/17 08:20 Labs: CBC, BMP 10/25/17 21:20 10/25/17 21:20 Discharge Summary Reason For Visit: SEIZURE Condition: Good - Instructions Diet, Activity, Other Instructions: resume previous diet and activity Referrals: Aditi Roger MD [Primary Care Provider] - Lenard Mcrae MD [Staff Physician] - Disposition: HOME - Home Medications Comprehensive Discharge Medication List: Ambulatory Orders Aspirin [ASA -] 81 mg PO DAILY 12/29/15 Brimonidine Tartrate [Alphagan 0.15% -] 1 drop OD BID 12/29/15 Oxcarbazepine 150 mg PO BID 12/29/15 Timolol 0.5% [Timoptic 0.5%] 1 drop OU DAILY 12/29/15 Metoprolol Tartrate [Lopressor -] 50 mg PO BID #60 tab 09/24/16 Nifedipine [Procardia Xl] 60 mg PO DAILY #30 tab 09/24/16
[2017-10-26 15:28] VITALS: BP 108/61; PULSE 71; TEMP 98.4
[2017-10-26] MEDS ORDERED: NIFEdipine E.R 60 MG TABLET (UD) PO ONE (22:17)
== END 2017-10-26 18:23 | disposition home or self-care (01) ==
LOC: JER 18:48 → JERBED 22:36 → J8W 10-26 02:32
PROVIDERS: ADMIT Internal Medicine; ATTEND Internal Medicine
PROC: 3E0337Z Introduction of Electrolytic and Water Balance Substance into Peripheral Vein, Percutaneous Approach (ICD-10-PCS; principal; 2017-10-25)
DX: G40.89 Other seizures (principal); I10 Essential (primary) hypertension; I69.398 Other sequelae of cerebral infarction; E78.5 Hyperlipidemia, unspecified; H40.9 Unspecified glaucoma; Z79.82 Long term (current) use of aspirin; Z91.81 History of falling
CPT/HCPCS: 36415; 70450-TC; 80053; 80183; 81003; 81015; 82465; 82550; 83718; 83721; 84478; 84484; 85025; 85610; 86850; 86900; 86901; 93005; 93010; 99284-25; 99285-25; G0378; J7030

== ENCOUNTER 2018-04-01 16:58 | Observation (INO) | payer OTHER ==
--- NOTE | 2018-04-01 17:06 | PDOC ---
History of Present Illness - General Chief Complaint: Seizure Stated Complaint: Seizure Time Seen by Provider: 04/01/18 17:06 - History of Present Illness Initial Comments: 04/01/18 18:10 58 YO F w/ a hx of HTN, seizures d/o, and hemorrhagic CVA in 2006 is here in the ED brought in by ambulance after what EMS said was a seizure. They gave her midazolam on route. Here in the ED the patient is somnolent and not engaging in any conversation. She is aware she is in the hospital, is aware the date is mar 31, and knows her name. She is not speaking clearly though. History is very limited due to patient not staying awake and answering questions. She has a severe allergy to dilantin and keppra. She takes trileptal for her seizures. She became more coherent an hour into her hospital stay and a better history was obtained. She says she has a headache. She says she had a small seizure at the dialysis center today. She then had another seizure on the way home from dialysis and this time she had an aura beforehand. She felt a "flash of light" before she started seizing. She claims she is very compliant with taking her trileptal meds. She endorses urinary frequency for the past 3 days. She denies dysuria, urgency, hesitancy, hematuria. She denies chest pain, SOB, difficulty breathing. She denies recent fevers, chills, or infections. 04/01/18 18:33 04/01/18 18:51 Past History - Past Medical History Allergies/Adverse Reactions: Allergies Allergy/AdvReac Type Severity Reaction Status Date / Time levetiracetam [From Keppra] AdvReac Verified 04/01/18 18:13 phenytoin sodium AdvReac Verified 04/01/18 18:13 [From Dilantin] phenytoin sodium extended AdvReac Verified 04/01/18 18:13 [From Dilantin] Home Medications: Ambulatory Orders Aspirin [ASA -] 81 mg PO DAILY 12/29/15 Brimonidine Tartrate [Alphagan 0.15% -] 1 drop OD BID #1 bottle 10/26/17 Metoprolol Tartrate [Lopressor -] 50 mg PO BID #60 tab 10/26/17 Nifedipine [Procardia Xl] 60 mg PO DAILY #30 tab 10/26/17 Oxcarbazepine 150 mg PO BID #60 tablet 10/26/17 Timolol 0.5% [Timoptic 0.5%] 1 drop OU DAILY #1 bottle 10/26/17 CVA: Yes (Right hemmohagic stroke 2006 - residual loss of left peripheral vision) COPD: No HTN: Yes Hypercholesterolemia: Yes Seizures: Yes (Post-CVA) - Suicide/Smoking/Psychosocial Hx Smoking History: Unknown if ever smoked Have you smoked in the past 12 months: No Hx Alcohol Use: No Drug/Substance Use Hx: No Substance Use Type: None Review of Systems - Review of Systems Able to Perform ROS?: No (Patient is postictal) Comments:: 04/01/18 18:20 She is somnolent and not answering questions. *Physical Exam - Physical Exam Comments: 04/01/18 18:26 GENERAL: Patient is somnolent. She is lying in the bed confused. She does not follow commands well. Well developed, well nourished. HEENT: Normocephalic, atraumatic. PERRLA, EOMI. No conjunctival pallor. Sclera are non- icteric. Moist mucous membranes. Oropharynx is clear. NECK: Supple. Full ROM. No JVD. No thyromegaly. No lymphadenopathy. CARDIOVASCULAR: Regular rate and rhythm. No murmurs, rubs, or gallops. Distal pulses are 2+ and symmetric. PULMONARY: No evidence of respiratory distress. Lungs clear to auscultation bilaterally. No wheezing, rales or rhonchi. ABDOMINAL: Soft. Non-tender. Non-distended. No rebound or guarding. No organomegaly. Normoactive bowel sounds. MUSCULOSKELETAL She has limited ability to move her hip joints. She can not roll over. No bony deformities or tenderness. No CVA tenderness. EXTREMITIES: No cyanosis. No clubbing. No edema. No calf tenderness. SKIN: Warm and dry. Normal capillary refill. No rashes. No jaundice. NEUROLOGICAL: Somnolent and lethargic. Not responding to speech well. Cranial nerves 2-12 intact. No deficits to light touch and temperature in face, upper extremities and lower extremities. No motor deficits in the in face, upper extremities and lower extremities. Normoreflexic in the upper and lower extremities. Normal speech. Toes are down-going bilaterally. Gait is normal without ataxia. PSYCHIATRIC: Cooperative. Good eye contact. Appropriate mood and affect. ED Treatment Course - LABORATORY CBC & Chemistry Diagram: 04/01/18 18:07 04/01/18 18:07 Medical Decision Making - Medical Decision Making 04/01/18 18:28 58 YO F w/ a hx of HTN, seizures d/o, and hemorrhagic CVA in 2006 is here after having a seizure today aroudn 3:30. It is unclear what type of seizure she had Head CT in the ED showed no acute changes from 4 months back indicating there is not likely a stroke in addition to a seizure. We will try and evaluate what caused her to have a seizure today. DD includes but not limited to: metabolic, infectious, medication non-compliance , seizure disorder Plan: Labs, urine, cxr, ekg, continuous monitoring, re-assess. Labs, urine, cxr, ekg unremarkable. We believe the seizure is idiopathic in nature. Possibly resulted bc the patient was dehydrated today. Spoke with Dr. Mcrae and he said she should ideally be admitted for obs then he will come see her in the morning. 04/01/18 18:54 04/01/18 21:08 *DC/Admit/Observation/Transfer Diagnosis at time of Disposition: Seizure - Discharge Dispostion Condition at time of disposition: Guarded Decision to Admit order: Yes - Referrals Referrals: Aditi Roger MD [Primary Care Provider] - - Patient Instructions - Post Discharge Activity
--- NOTE | 2018-04-01 17:47 | PDOC ---
Attending Attestation - Medical Decision Making 04/01/18 20:[address] Mcrae at 8:23 pm. Waiting for a call back. <Mariaa Hopkins - Last Filed: 04/01/18 20:22> - Resident Resident Name: Peter Fuentes - ED Attending Attestation I have performed the following: I have examined & evaluated the patient, The case was reviewed & discussed with the resident, I agree w/resident's findings & plan, Exceptions are as noted - HPI HPI: 04/01/18 20:23 The patient is a 58-year-old female with past medical history significant for Hemorrhagic CVA (2006) s/p seizure disorder, HTN, and seizure disorder presents to the emergency department s/p an unwitnessed seizure. As per niece, the patient was found by a neighbor outside, who called EMS. The niece isnt sure on the details of the incident. The niece states, the patients last known seizure was last year. Niece suspects the patient of being noncompliant with medications it the past. The patient was given Versed en route to the ED by EMS. The patient reports associated complain of a headache. 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 Allergies: Dilantin & Keppra. Past surgical history: None reported. Social history: No reported alcohol, drug, or cigarette use. PCP: Dr. Roger Neurologist: Dr. Mcrae. GENERAL: The patient is awake, alert, and fully oriented, Nontoxic - in no acute distress. HEAD: Normocephalic, atraumatic. EYES: extraocular movements intact, sclera anicteric, conjunctiva clear. ENT: Normal voice, Moist mucous membranes. NECK: Normal range of motion, supple LUNGS: Breath sounds equal, clear to auscultation bilaterally. No wheezes, no rhonchi, no rales. HEART: Regular rate and rhythm, normal S1 and S2 without murmur, rub or gallop. ABDOMEN: Soft, nontender, normoactive bowel sounds. No guarding, no rebound. . No CVA tenderness EXTREMITIES: Normal range of motion, no edema. No clubbing or cyanosis. No cords, erythema, or tenderness. NEUROLOGICAL: No facial assymetry, Normal speech, moving all 4 extremities spontaneously and symmetrically PSYCH: Normal mood, normal affect. SKIN: Warm, Dry, normal turgor, Differential for the patient's seizure episode includes metabolic derangements, occult infection, noncompliance with medications On presentation the patient was initially somnolent suspect that was secondary to the Versed. The patient is currently back to her baseline mental status. Labs reviewed are unremarkable, will discuss with Dr. Mcrae regarding possible change in medications and outpatient fu - Physicial Exam PE: 04/03/18 19:49 davon sanchez <Clovis Christensen - Last Filed: 04/03/18 19:49> Heart Score/ECG Review - ECG Impressions Comment:: Twelve-lead EKG was performed and reviewed by me. There is normal sinus rhythm with a normal rate. Rate of 75 [place] is normal T wave inversion in aVL No ST changes suggestive of acute ischemia <Clovis Christensen - Last Filed: 04/03/18 19:49>
[2018-04-01 18:45] LABS: BASO % 0.4 % (0-2.0); EOS % 1.2 % (0-4.5); HEMATOCRIT 41.4 % (32.4-45.2); HEMOGLOBIN 13.8 GM/dL (10.7-15.3); LYMPH % 15.5 % (8-40); MCH 25.6 pg (25.7-33.7); MCHC 33.3 g/dl (32.0-36.0); MEAN CELL VOLUME 77.1 fl (80-96); MEAN PLT VOLUME 8.3 fl (7.5-11.1); MONO % 5.6 % (3.8-10.2); NEUT % 77.3 % (42.8-82.8); PLATELET COUNT 378 K/MM3 (134-434); RBC 5.37 M/mm3 (3.60-5.2); RDW 16.7 % (11.6-15.6); WHITE BLOOD COUNT 10.6 K/mm3 (4.0-10.0)
[2018-04-01 19:18] LABS: ANION GAP 11 MMOL/L (8-16); BILIRUBIN,TOTAL 0.4 mg/dL (0.2-1.0); BLOOD UREA NITROGEN 20 mg/dL (7-18); CALCIUM 9.3 mg/dL (8.5-10.1); CHLORIDE 106 mmol/L (98-107); CO2 26 mmol/L (21-32); GLUCOSE,RANDOM 90 mg/dL (74-106); POTASSIUM 4.6 mmol/L (3.5-5.1); SGOT/AST 16 U/L (15-37); SGPT/ALT 28 U/L (13-61); SODIUM 143 mmol/L (136-145); TOT PROT 8.1 g/dl (6.4-8.2)
[2018-04-01 19:19] LABS: ALK PHOS 84 U/L (45-117)
[2018-04-01] MEDS ORDERED: SODIUM CHLORIDE 0.9% 500 ML INFUS.BAG IV ONE (19:20)
[2018-04-01] MEDS ORDERED: ACETAMINOPHEN 325 MG TABLET (FP) PO ONE (20:17)
[2018-04-01 20:49] LABS: URINE APPEARANCE SLCLOUDY; URINE BILIRUBIN NEGATIVE (<2.0 mg/dL); URINE COLOR LTYELLOW; URINE GLUCOSE (UA) NEGATIVE (NEGATIVE); URINE KETONE TRACE (NEGATIVE); URINE LEUK ESTERASE TRACE (NEGATIVE); URINE NITRITE NEGATIVE (NEGATIVE); URINE PROTEIN 2+ (NEGATIVE); URINE UROBILINOGEN NEGATIVE mg/dL (0.2-1.0)
[2018-04-01 20:51] LABS: EPI CELLS RARE /HPF (FEW); URINE BACTERIA RARE /hpf (NONE SEEN); URINE MUCUS RARE
[2018-04-01] MEDS ORDERED: NIFEdipine 10 MG CAPSULE (FP) PO ONE (21:04)
[2018-04-01] MEDS ORDERED: METOPROLOL TARTRATE 50 MG TABLET (FP) PO ONE (21:04)
[2018-04-01] MEDS ORDERED: TIMOLOL 0.5% OPHTHALMIC SOL 5 ML BOTTLE OU SCH ×2 (22:00→22:45)
--- NOTE | 2018-04-01 22:35 | HP ---
CHIEF COMPLAINT: seizure PCP: Kana HISTORY OF PRESENT ILLNESS: 58yF with PMH HTN, HLD, hemorrhagic CVA 2006 with seizures after presented s/p seizure activity. Pt reports that she takes her medicines daily but not always at the time they are supposed to be taken. She may have missed a dose of trileptal today. EMS gave versed in the ambulance. ER course was notable for: (1) no further seizure activity (2) CT with no acute changes Recent Travel: pt denies PAST MEDICAL HISTORY: HTN, HLD, seizure d/o, glaucoma PAST SURGICAL HISTORY: pt denies Social History: Smoking: pt denies Alcohol: pt denies Drugs: pt denies Family History: mother alive with DM, ESRD father age 83, COPD one brother s/p esophageal CA 2 other brothers and one sister alive and well Allergies levetiracetam [From Keppra] Adverse Reaction (Verified 04/01/18 18:13) phenytoin sodium [From Dilantin] Adverse Reaction (Verified 04/01/18 18:13) phenytoin sodium extended [From Dilantin] Adverse Reaction (Verified 04/01/18 18 :13) HOME MEDICATIONS: 3 Medication Instructions Recorded Aspirin [ASA -] 81 mg PO DAILY 12/29/15 Brimonidine Tartrate [Alphagan 1 drop OD BID #1 bottle 10/26/17 0.15% -] Metoprolol Tartrate [Lopressor -] 50 mg PO BID #60 tab 10/26/17 Nifedipine [Procardia Xl] 60 mg PO DAILY #30 tab 10/26/17 Oxcarbazepine 150 mg PO BID #60 tablet 10/26/17 Timolol 0.5% [Timoptic 0.5%] 1 drop OU DAILY #1 bottle 10/26/17 REVIEW OF SYSTEMS CONSTITUTIONAL: Absent: fever, chills, diaphoresis, generalized weakness, malaise, loss of appetite, weight change HEENT: Absent: rhinorrhea, nasal congestion, throat pain, throat swelling, difficulty swallowing, mouth swelling, ear pain, eye pain, visual changes CARDIOVASCULAR: Absent: chest pain, syncope, palpitations, irregular heart rate, lightheadedness , peripheral edema RESPIRATORY: Absent: cough, shortness of breath, dyspnea with exertion, orthopnea, wheezing, stridor, hemoptysis GASTROINTESTINAL: Absent: abdominal pain, abdominal distension, nausea, vomiting, diarrhea, constipation, melena, hematochezia GENITOURINARY: Absent: dysuria, frequency, urgency, hesitancy, hematuria, flank pain, genital pain MUSCULOSKELETAL: Absent: myalgia, arthralgia, joint swelling, back pain, neck pain SKIN: Absent: rash, itching, pallor HEMATOLOGIC/IMMUNOLOGIC: Absent: easy bleeding, easy bruising, lymphadenopathy, frequent infections ENDOCRINE: Absent: unexplained weight gain, unexplained weight loss, heat intolerance, cold intolerance NEUROLOGIC: seizure Absent: headache, focal weakness or paresthesias, dizziness, unsteady gait, bladder or bowel incontinence PSYCHIATRIC: Absent: anxiety, depression, suicidal or homicidal ideation, hallucinations. PHYSICAL EXAMINATION Vital Signs - 24 hr 3 04/01/18 16:58 Temperature 98.1 F Pulse Rate 81 Respiratory 17 Rate Blood Pressure 150/80 O2 Sat by Pulse 99 Oximetry (%) GENERAL: Awake, alert, and fully oriented, in no acute distress. HEAD: Normal with no signs of trauma. EYES: Pupils equal, round and reactive to light, extraocular movements intact, sclera anicteric, conjunctiva clear. No lid lag. EARS, NOSE, THROAT: Ears normal, nares patent, oropharynx clear without exudates. Moist mucous membranes. NECK: Normal range of motion, supple without lymphadenopathy, JVD, or masses. LUNGS: Breath sounds equal, clear to auscultation bilaterally. No wheezes, and no crackles. No accessory muscle use. HEART: Regular rate and rhythm, normal S1 and S2 without murmur, rub or gallop. ABDOMEN: Soft, nontender, not distended, normoactive bowel sounds, no guarding, no rebound, no masses. No hepatomegaly or splenomegaly. MUSCULOSKELETAL: Normal range of motion at all joints. No bony deformities or tenderness. No CVA tenderness. UPPER EXTREMITIES: 2+ pulses, warm, well-perfused. No cyanosis. No clubbing. No peripheral edema. LOWER EXTREMITIES: 2+ pulses, warm, well-perfused. No calf tenderness. No peripheral edema. NEUROLOGICAL: Cranial nerves II-XII intact. Normal speech. PSYCHIATRIC: Cooperative. Good eye contact. Appropriate mood and affect. SKIN: Warm, dry, normal turgor, no rashes or lesions noted, normal capillary refill. Laboratory Results - last 24 hr 3 04/01/18 04/01/18 04/01/18 18:07 18:07 18:07 WBC 10.6 H RBC 5.37 H Hgb 13.8 Hct 41.4 MCV 77.1 L MCH 25.6 L MCHC 33.3 RDW 16.7 H Plt Count 378 MPV 8.3 Absolute Neuts (auto) 8.2 H Neutrophils % 77.3 Lymphocytes % 15.5 D Monocytes % 5.6 D Eosinophils % 1.2 D Basophils % 0.4 Nucleated RBC % 0 PT with INR Cancelled INR Cancelled PTT (Actin FS) Cancelled Sodium 143 Potassium 4.6 Chloride 106 Carbon Dioxide 26 Anion Gap 11 BUN 20 H Creatinine 1.0 Creat Clearance w eGFR 57.15 Random Glucose 90 Calcium 9.3 Total Bilirubin 0.4 AST 16 ALT 28 Alkaline Phosphatase 84 Total Protein 8.1 Albumin 4.0 Urine Color Urine Appearance Urine pH Ur Specific [place] Urine Protein Urine Glucose (UA) Urine Ketones Urine Blood Urine Nitrite Urine Bilirubin Urine Urobilinogen Ur Leukocyte Esterase Urine WBC (Auto) Urine RBC (Auto) Ur Epithelial Cells Urine Bacteria Urine Mucus Blood Type Antibody Screen 3 04/01/18 04/01/18 18:07 20:23 WBC RBC Hgb Hct MCV MCH MCHC RDW Plt Count MPV Absolute Neuts (auto) Neutrophils % Lymphocytes % Monocytes % Eosinophils % Basophils % Nucleated RBC % PT with INR INR PTT (Actin FS) Sodium Potassium Chloride Carbon Dioxide Anion Gap BUN Creatinine Creat Clearance w eGFR Random Glucose Calcium Total Bilirubin AST ALT Alkaline Phosphatase Total Protein Albumin Urine Color Ltyellow Urine Appearance Slcloudy Urine pH 7.0 Ur Specific [place] 1.011 Urine Protein 2+ H Urine Glucose (UA) Negative Urine Ketones Trace H Urine Blood Negative Urine Nitrite Negative Urine Bilirubin Negative Urine Urobilinogen Negative Ur Leukocyte Esterase Trace Urine WBC (Auto) 6 Urine RBC (Auto) 4 Ur Epithelial Cells Rare Urine Bacteria Rare Urine Mucus Rare Blood Type O POSITIVE Antibody Screen Negative ECG normal sinus rhythm vent rate 75, QTC 489 moderate voltage criteria for LVH TWI lead I, aVL, no other ST/T changes Prolonged QT Radiology Reports CT head IMPRESSION: No definite interval change is seen in comparison to a prior CT exam of 10/25/2017 as noted above. Reported By: Tony Eng MD 04/01/18 0005 ASSESSMENT/PLAN: 58yF with PMH HTN, HLD, hemorrhagic CVA 2006 with seizures after presented s/p seizure activity. seizure - cont home trileptal - neuro consult appreciated - admit to noncardiac tele for observation HTN/HLD - cont home procardia, metoprolol - not currently taking a statin, advised to f/u with PCP outpatient. DVT PPX - heparin deferred as anticipated LOS less than 48h FEN - tolerating po - BMP in am - low sodium diet as tolerated Dispo: pt currently requires further observation. Visit type - Emergency Visit Emergency Visit: Yes ED Registration Date: 04/01/18 Care time: The patient presented to the Emergency Department on the above date and was hospitalized for further evaluation of their emergent condition. - New Patient This patient is new to me today: Yes Date on this admission: 04/01/18 - Critical Care Critical Care patient: No Hospitalist Screening - Colonoscopy Questionnaire Colonoscopy Questionnaire: Colonoscopy Questionnaire - Patient: 50 - 75 years old and never had a screening colonoscopy: No History of colon or rectal polyps, or CA: No History of IBD, Crohn's disease or UC: No History of abdominal radiation therapy as a child: No - Relative: 1 with colon or rectal CA, or polyps at age 60 or younger: No Colon or rectal CA diagnosed at age 45 or younger: No Multiple relatives with colon or rectal CA: No - Outcome: Screening Result: Negative Screen
[2018-04-01] MEDS ORDERED: METOPROLOL TARTRATE 50 MG TABLET (FP) ONE (23:13)
[2018-04-01] MEDS ORDERED: ACETAMINOPHEN 325 MG TABLET (FP) ONE (23:13)
[2018-04-02] MEDS: BRIMONIDINE TARTRATE 0.15% OPHTHALMIC 5 ML BOTTLE OD SCH ×2 (03:08→10:31)
[2018-04-02 03:21] VITALS: BMI 41.0
[2018-04-02] MEDS ORDERED: PT OWN MED DRAWER 7, Y5N ONE ×2 (03:24→10:11)
[2018-04-02] MEDS: OXcarbazepine 150 MG TABLET (UD) PO SCH ×3 (03:26→10:36)
[2018-04-02 07:09] VITALS: TEMP 98.2
[2018-04-02 08:01] LABS: BASO % 0.6 % (0-2.0); EOS % 1.5 % (0-4.5); HEMATOCRIT 37.9 % (32.4-45.2); HEMOGLOBIN 12.4 GM/dL (10.7-15.3); LYMPH % 35.1 % (8-40); MCH 25.4 pg (25.7-33.7); MCHC 32.8 g/dl (32.0-36.0); MEAN CELL VOLUME 77.5 fl (80-96); MEAN PLT VOLUME 8.5 fl (7.5-11.1); NEUT % 55.8 % (42.8-82.8); PLATELET COUNT 322 K/MM3 (134-434); RDW 16.9 % (11.6-15.6); WHITE BLOOD COUNT 10.4 K/mm3 (4.0-10.0)
[2018-04-02 08:14] LABS: CHOLESTEROL 217 mg/dL (50-200); TRIGLYCERIDES 125 mg/dL (0-150)
[2018-04-02 08:15] LABS: HDL CHOLESTEROL 76 mg/dL (40-60)
[2018-04-02 08:25] LABS: CHLORIDE 106 mmol/L (98-107); POTASSIUM 4.2 mmol/L (3.5-5.1); SODIUM 141 mmol/L (136-145)
[2018-04-02 08:37] LABS: ANION GAP 12 MMOL/L (8-16); BLOOD UREA NITROGEN 22 mg/dL (7-18); CALCIUM 8.9 mg/dL (8.5-10.1); CO2 23 mmol/L (21-32); GLUCOSE,RANDOM 101 mg/dL (74-106); MAGNESIUM 2.6 mg/dL (1.8-2.4); PHOSPHOROUS 3.9 mg/dL (2.5-4.9)
[2018-04-02] MEDS ORDERED: METOPROLOL TARTRATE 50 MG TABLET (FP) PO SCH (10:00)
[2018-04-02] MEDS ORDERED: NIFEdipine E.R 60 MG TABLET (UD) PO SCH (10:00)
[2018-04-02] MEDS ORDERED: ASPIRIN 81 MG CHEWABLE TABLETS PO SCH (10:00)
--- NOTE | 2018-04-02 10:53 | PN ---
Progress Note, Physician Chief Complaint: seizure - Current Medication List Current Medications: Active Medications Aspirin (Asa -) 81 mg PO DAILY [facility] Last Admin: 04/02/18 10:36 Dose: 81 mg Brimonidine Tartrate (Alphagan 0.15% -) 1 drop OD BID [facility] Last Admin: 04/02/18 10:31 Dose: 1 drop Metoprolol Tartrate (Lopressor -) 50 mg PO BID [facility] Last Admin: 04/02/18 10:36 Dose: 50 mg Nifedipine (Procardia Xl -) 60 mg PO DAILY [facility] Last Admin: 04/02/18 10:36 Dose: 60 mg Oxcarbazepine (Trileptal -) 150 mg PO BID [facility] Last Admin: 04/02/18 10:36 Dose: 150 mg Timolol Maleate (Timoptic 0.5%) 1 drop OU HS [facility] Last Admin: 04/02/18 03:08 Dose: Not Given - Objective Vital Signs: Vital Signs Temperature 98.2 F 04/02/18 05:00 Pulse Rate 80 04/02/18 09:00 Respiratory Rate 18 04/02/18 09:00 Blood Pressure 145/84 04/02/18 09:00 O2 Sat by Pulse Oximetry (%) 98 04/02/18 03:10 Constitutional: Yes: Well Nourished, No Distress, Calm Eyes: Yes: WNL, Conjunctiva Clear, EOM Intact HENT: Yes: WNL, Atraumatic, Normocephalic Neck: Yes: WNL, Supple, Trachea Midline Cardiovascular: Yes: WNL, Regular Rate and Rhythm Respiratory: Yes: WNL, Regular, CTA Bilaterally Gastrointestinal: Yes: WNL, Normal Bowel Sounds, Soft ...Rectal Exam: Yes: WNL Genitourinary: Yes: WNL Labs: CBC, BMP 04/02/18 05:30 04/02/18 05:30 INR, PTT INR Cancelled 04/01/18 18:07 Problem List - Problems (1) Seizure Assessment/Plan: seizure - cont home trileptal - neuro consult appreciated - admit to noncardiac tele for observation Code(s): R56.9 - UNSPECIFIED CONVULSIONS (2) Edema Code(s): R60.9 - EDEMA, UNSPECIFIED Qualifiers: Edema type: unspecified Qualified Code(s): R60.9 - Edema, unspecified (3) History of CVA (cerebrovascular accident) Assessment/Plan: stable no acute intervention Code(s): Z86.73 - PRSNL HX OF TIA (TIA), AND CEREB INFRC W/O RESID DEFICITS (4) Obesity (BMI 30-39.9) Assessment/Plan: patient advised to diet and exercise Code(s): E66.9 - OBESITY, UNSPECIFIED (5) HTN (hypertension), benign Assessment/Plan: HTN/HLD - cont home procardia, metoprolol - not currently taking a statin, advised to f/u with PCP outpatient. Code(s): I10 - ESSENTIAL (PRIMARY) HYPERTENSION (6) DVT prophylaxis Assessment/Plan: DVT PPX - heparin deferred as anticipated LOS less than 48h Code(s): FJM0010 -
--- NOTE | 2018-04-02 12:32 | CONSULT ---
Consult - text type - Consultation Consultation Note: Neurology HISTORY OF PRESENT ILLNESS: 58yF with PMH HTN, HLD, hemorrhagic CVA 2006 with seizures after presented s/p seizure activity unwitnessed. Pt reported complaints of headache on day of admission. Pt reported that she takes her medicines daily but not always at the time they are supposed to be taken. She may have missed a dose of trileptal on day of admission. EMS gave versed in the ambulance. No further seizure activity noted in the ER and CT completed and reported with no acute changes. She was admitted for observation and did not have any seizures overnight. Remains stable this AM without any abnormal movements. Neurologically at baseline and was requesting to go home. Recent Travel: pt denies PAST MEDICAL HISTORY: HTN, HLD, seizure d/o, glaucoma PAST SURGICAL HISTORY: pt denies Social History: Smoking: pt denies Alcohol: pt denies Drugs: pt denies Family History: mother alive with DM, ESRD father age 83, COPD one brother s/p esophageal CA 2 other brothers and one sister alive and well Allergies levetiracetam [From Keppra] Adverse Reaction (Verified 04/01/18 18:13) phenytoin sodium [From Dilantin] Adverse Reaction (Verified 04/01/18 18:13) phenytoin sodium extended [From Dilantin] Adverse Reaction (Verified 04/01/18 18 :13) HOME MEDICATIONS: 3 Medication Instructions Recorded Aspirin [ASA -] 81 mg PO DAILY 12/29/15 Brimonidine Tartrate [Alphagan 1 drop OD BID #1 bottle 10/26/17 0.15% -] Metoprolol Tartrate [Lopressor -] 50 mg PO BID #60 tab 10/26/17 Nifedipine [Procardia Xl] 60 mg PO DAILY #30 tab 10/26/17 Oxcarbazepine 150 mg PO BID #60 tablet 10/26/17 Timolol 0.5% [Timoptic 0.5%] 1 drop OU DAILY #1 bottle 10/26/17 PHYSICAL EXAMINATION Vital Signs Period Temp Pulse Resp BP Sys/Lewis Pulse Ox Last 24 Hr 98.1 F-98.4 F 73-81 16-20 120-150/74-92 97-99 GENERAL: Awake, alert, and fully oriented, in no acute distress. HEAD: Normal with no signs of trauma. EYES: Pupils equal, round and reactive to light, extraocular movements intact, sclera anicteric, conjunctiva clear. No lid lag. EARS, NOSE, THROAT: Ears normal, nares patent, oropharynx clear without exudates. Moist mucous membranes. NECK: Normal range of motion, supple without lymphadenopathy, JVD, or masses. LUNGS: Breath sounds equal, clear to auscultation bilaterally. No wheezes, and no crackles. No accessory muscle use. HEART: Regular rate and rhythm, normal S1 and S2 without murmur, rub or gallop. ABDOMEN: Soft, nontender, not distended, normoactive bowel sounds, no guarding, no rebound, no masses. No hepatomegaly or splenomegaly. MUSCULOSKELETAL: Normal range of motion at all joints. No bony deformities or tenderness. No CVA tenderness. UPPER EXTREMITIES: 2+ pulses, warm, well-perfused. No cyanosis. No clubbing. No peripheral edema. LOWER EXTREMITIES: 2+ pulses, warm, well-perfused. No calf tenderness. No peripheral edema. NEUROLOGICAL: Cranial nerves II-XII intact. Normal speech. PSYCHIATRIC: Cooperative. Good eye contact. Appropriate mood and affect. SKIN: Warm, dry, normal turgor, no rashes or lesions noted, normal capillary refill. CBCD WBC 10.4 K/mm3 (4.0-10.0) H 04/02/18 05:30 RBC 4.90 M/mm3 (3.60-5.2) 04/02/18 05:30 Hgb 12.4 GM/dL (10.7-15.3) 04/02/18 05:30 Hct 37.9 % (32.4-45.2) 04/02/18 05:30 MCV 77.5 fl (80-96) L 04/02/18 05:30 MCHC 32.8 g/dl (32.0-36.0) 04/02/18 05:30 RDW 16.9 % (11.6-15.6) H 04/02/18 05:30 Plt Count 322 K/MM3 (134-434) 04/02/18 05:30 MPV 8.5 fl (7.5-11.1) 04/02/18 05:30 CMP Sodium 141 mmol/L (136-145) 04/02/18 05:30 Potassium 4.2 mmol/L (3.5-5.1) 04/02/18 05:30 Chloride 106 mmol/L (98-107) 04/02/18 05:30 Carbon Dioxide 23 mmol/L (21-32) 04/02/18 05:30 Anion Gap 12 MMOL/L (8-16) 04/02/18 05:30 BUN 22 mg/dL (7-18) H 04/02/18 05:30 Creatinine 1.0 mg/dL (0.55-1.3) 04/02/18 05:30 Creat Clearance w eGFR 57.15 (>60) 04/02/18 05:30 Random Glucose 101 mg/dL (74-106) 04/02/18 05:30 Calcium 8.9 mg/dL (8.5-10.1) 04/02/18 05:30 Total Bilirubin 0.4 mg/dL (0.2-1.0) 04/01/18 18:07 AST 16 U/L (15-37) 04/01/18 18:07 ALT 28 U/L (13-61) 04/01/18 18:07 Alkaline Phosphatase 84 U/L (45-117) 04/01/18 18:07 Total Protein 8.1 g/dl (6.4-8.2) 04/01/18 18:07 Albumin 4.0 g/dl (3.4-5.0) 04/01/18 18:[address] head IMPRESSION: No definite interval change is seen in comparison to a prior CT exam of 10/25/2017 as noted above. Reported By: Tony Eng MD 04/01/18 2119 ASSESSMENT/PLAN: 58yF with PMH HTN, HLD, hemorrhagic CVA 2007 with seizures after presented s/p seizure activity. Pt reported that she takes her medicines daily but not always at the time they are supposed to be taken. She may have missed a dose of trileptal on day of admission. EMS gave versed in the ambulance. No further seizure activity noted in the ER and CT completed and reported with no acute changes. She was admitted for observation and did not have any seizures overnight. Remains stable this AM without any abnormal movements. Neurologically at baseline and was requesting to go home. Recommend continuing home dose of medication, was under added stress and with breakthrough seizure. Medication compliance recommended. Maintain adequate hydration. Seizure precautions discussed.
--- NOTE | 2018-04-02 14:12 | DS ---
Physical Examination Vital Signs: Vital Signs Temperature 98.2 F 04/02/18 05:00 Pulse Rate 80 04/02/18 09:00 Respiratory Rate 18 04/02/18 09:00 Blood Pressure 145/84 04/02/18 09:00 O2 Sat by Pulse Oximetry (%) 98 04/02/18 03:10 Constitutional: Yes: Well Nourished, No Distress, Calm Eyes: Yes: WNL, Conjunctiva Clear, EOM Intact HENT: Yes: WNL, Atraumatic, Normocephalic Neck: Yes: WNL, Supple, Trachea Midline Cardiovascular: Yes: WNL, Regular Rate and Rhythm, S1, S2 Respiratory: Yes: WNL, Regular, CTA Bilaterally Gastrointestinal: Yes: WNL, Normal Bowel Sounds, Soft Musculoskeletal: Yes: WNL Extremities: Yes: WNL Labs: CBC, BMP 04/02/18 05:30 04/02/18 05:30 Discharge Summary Reason For Visit: SEIZURE Current Active Problems DVT prophylaxis (Acute) HTN (hypertension), benign (Acute) Seizure (Acute) Condition: Guarded - Instructions Referrals: Aditi Roger MD [Primary Care Provider] - - Home Medications Comprehensive Discharge Medication List: Ambulatory Orders Aspirin [ASA -] 81 mg PO DAILY 12/29/15 Brimonidine Tartrate [Alphagan 0.15% -] 1 drop OD BID #1 bottle 10/26/17 Metoprolol Tartrate [Lopressor -] 50 mg PO BID #60 tab 10/26/17 Nifedipine [Procardia Xl] 60 mg PO DAILY #30 tab 10/26/17 Oxcarbazepine 150 mg PO BID #60 tablet 10/26/17 Timolol 0.5% [Timoptic 0.5%] 1 drop OU DAILY #1 bottle 10/26/17
[2018-04-02 15:05] VITALS: BP 117/72; PULSE 77
--- NOTE | 2018-04-03 21:55 | EKG ---
Test Reason : Blood Pressure : / mmHG Vent. Rate : 075 BPM Atrial Rate : 075 BPM P-R Int : 150 ms QRS Dur : 080 ms QT Int : 438 ms P-R-T Axes : 036 006 068 degrees QTc Int : 489 ms NORMAL SINUS RHYTHM MODERATE VOLTAGE CRITERIA FOR LVH, MAY BE NORMAL VARIANT NONSPECIFIC T WAVE ABNORMALITY PROLONGED QT ABNORMAL ECG WHEN COMPARED WITH ECG OF 25-OCT-2017 20:21, NO SIGNIFICANT CHANGE WAS FOUND Confirmed by ROM TAYLOR MD ([id number]) on 04/03/2018 9:55:41 PM Referred By: Confirmed By:ROM TAYLOR MD
== END 2018-04-02 16:47 | disposition home or self-care (01) ==
LOC: JER 16:58 → JERBED 21:10 → J4W 04-02 02:55
PROVIDERS: ADMIT Internal Medicine; ATTEND Internal Medicine
DX: G40.909 Epilepsy, unspecified, not intractable, without status epilepticus (principal); I10 Essential (primary) hypertension; E78.00 Pure hypercholesterolemia, unspecified; E66.9 Obesity, unspecified; Z68.41 Body mass index [BMI] 40.0-44.9, adult; Z79.82 Long term (current) use of aspirin; Z88.8 Allergy status to other drugs, medicaments and biological substances; I69.898 Other sequelae of other cerebrovascular disease; H53.8 Other visual disturbances
CPT/HCPCS: 36415; 70450-TC; 71045-TC-FY; 80048; 80053; 80061; 80183; 81003; 81015; 83721; 83735; 84100; 85025; 86850; 86900; 86901; 87086; 93005; 93010; 99285-25; G0378

== ENCOUNTER 2018-07-13 04:02 | Emergency (ER) | payer OTHER ==
--- NOTE | 2018-07-13 04:27 | PDOC ---
History of Present Illness - General Chief Complaint: Seizure Stated Complaint: SEIZURE Time Seen by Provider: 07/13/18 04:17 History Source: Patient, EMS - History of Present Illness Initial Comments: 58 YO F w/ a hx of HTN, seizures d/o, and hemorrhagic CVA in 2006 is here in the ED BIBEMS. As per EMS: Came in actively seizing in a partial seizure. Patent said shed been seizing since 11 pm last night. She has some type of aura then seized. She got 5 im versed from ems which did not stop the seizure right away, but eventually got her seizures under control. RZ O2 sat was 90% - went up to 94% on 4 liters. blood glucose was 154 in the field. Friend on scene says her only medical history is seizures and she takes her meds. She lost control of her bowels during the seizure. Patient's sister by bedside says that she had some alcohol last night at dinner. Here in the ED the patient is somnolent and not engaging in any conversation. She is aware she is in the hospital, is aware the date is Jul 14, and knows her name. She is not speaking clearly though. History is very limited due to patient not staying awake and answering questions. She has a severe allergy to dilantin and keppra. She takes trileptal for her seizures. Allergies: Dilantin & Keppra. Past surgical history: None reported. Social history: Patient drank alcohol last night at dinner. No reported drug, or cigarette use. PCP: Dr. Roger Neurologist: Dr. Mcrae. Past History - Past Medical History Allergies/Adverse Reactions: Allergies Allergy/AdvReac Type Severity Reaction Status Date / Time levetiracetam [From Keppra] AdvReac Verified 07/13/18 04:29 phenytoin sodium AdvReac Verified 07/13/18 04:29 [From Dilantin] phenytoin sodium extended AdvReac Verified 07/13/18 04:29 [From Dilantin] Home Medications: Ambulatory Orders Aspirin [ASA -] 81 mg PO DAILY 12/29/15 Brimonidine Tartrate [Alphagan 0.15% -] 1 drop OD BID #1 bottle 10/26/17 Metoprolol Tartrate [Lopressor -] 50 mg PO BID #60 tab 10/26/17 Nifedipine [Procardia Xl] 60 mg PO DAILY #30 tab 10/26/17 Oxcarbazepine 150 mg PO BID #60 tablet 10/26/17 Timolol 0.5% [Timoptic 0.5%] 1 drop OU DAILY #1 bottle 10/26/17 CVA: Yes (Right hemmohagic stroke 2006 - residual loss of left peripheral vision) COPD: No HTN: Yes Hypercholesterolemia: Yes Seizures: Yes (Post-CVA) - Suicide/Smoking/Psychosocial Hx Smoking History: Former smoker Have you smoked in the past 12 months: No Hx Alcohol Use: No Drug/Substance Use Hx: No Substance Use Type: None Review of Systems - Review of Systems Able to Perform ROS?: No (Patient is passed out) *Physical Exam - Physical Exam Comments: GENERAL: Well-appearing, well-nourished. Sleeping comfortably on bed. HEENT: Normocephalic, atraumatic. PERRL, EOM intact. CARDIOVASCULAR: Normal S1, S2. Regular rate and rhythm. PULMONARY: Clear to auscultation bilaterally. ABDOMEN: Soft, non-distended, non-tender. EXTREMITIES: No cyanosis. No clubbing. No edema. No calf tenderness. SKIN: Warm and dry. Normal capillary refill. No rashes. No jaundice. NEUROLOGICAL: Somnolent and lethargic. Not responding to speech well. ED Treatment Course - LABORATORY CBC & Chemistry Diagram: 07/13/18 05:43 07/13/18 05:43 Medical Decision Making - Medical Decision Making 58 YO F w/ a hx of HTN, seizures d/o, and hemorrhagic CVA in 2006 is here after having seizures. We will try and evaluate what caused her to have a seizure today. - She had some alcohol last night at dinner. DDx IBNLT: metabolic, infectious, medication non-compliance, alcohol side effect , seizure disorder. Plan: Labs, IV, continuous monitoring, re-assess when more alert. - Patient can safely be discharged home. - Patient would appreciate if Clementina was given a call about her status. *DC/Admit/Observation/Transfer Diagnosis at time of Disposition: Seizure - Discharge Dispostion Condition at time of disposition: Fair - Referrals Referrals: Luanne Carlton MD [Primary Care Provider] - - Patient Instructions - Post Discharge Activity
[2018-07-13 04:50] VITALS: TEMP 98.7; BMI 48.5
--- NOTE | 2018-07-13 05:37 | PDOC ---
Attending Attestation - Resident Resident Name: GinaPeter - ED Attending Attestation I have performed the following: I have examined & evaluated the patient, The case was reviewed & discussed with the resident, I agree w/resident's findings & plan, Exceptions are as noted - Medical Decision Making 07/13/18 05:26 A portion of this note was documented by scribe services under my direction. I have reviewed the details of the note, within reason, and agree with the documentation with the following case summary and management plan written by me. Patient treated in the ED. Nursing notes are reviewed and incorporated into the medical decision-making. Vital signs reviewed. Peripheral IV access obtained by the nurse, laboratory studies are drawn and sent, reviewed and interpreted by myself. Vital Signs Temp Pulse Resp BP Pulse Ox 98.7 F 91 H 22 H 134/78 94 L 07/13/18 04:02 07/13/18 04:02 07/13/18 04:02 07/13/18 04:02 07/13/18 04:02 58-year-old female patient with history of hemorrhagic CVA, hypertension, stroke on Trileptal and oxycarbazapine presents with seizure today. Last seizure was several months ago. It is unclear if the patient's urine to her medications. Patient lives with her family. The patient was to get out of bed but was having left leg partial seizure the patient felt to the floor. EMS was activated and the patient was given 5 mg of Versed intramuscularly. The patient has been sleepy. She denies any headache at this time. I suspect the patient is likely of a seizure in the setting of her epilepsy. We' ll obtain labs to evaluate for metabolic disarray. We'll observe the patient in the ER. If the workup is unremarkable and the patient returns back to baseline and with no further issues, the patient be discharged home. <Lonnie Alves - Last Filed: 07/13/18 05:26> - HPI HPI: This patient is a 58 year old female with PMHx of HTN, seizures d/o, and hemorrhagic CVA in 2006, who presents s/p seizure at 11pm yesterday. As per family friends, patient was in her bedroom making funny noises that at first sounded like the patient was praying but later sounded like she was having difficulty breathing. They found her face down on the bedroom floor. They state that she was able to talk during the seizure and tell them what happened. They called EMS and patient was given 5 IM versed. They also note that patient drank alcohol at dinner yesterday. They state that last know seizure was a few months ago. Allergies: Valentino Norman 07/13/18 05:38 - Physicial Exam PE: GENERAL:Asleep, somnolent, in no acute distress. HEAD: No signs of trauma EYES: PERRLA, EOMI, sclera anicteric, conjunctiva clear ENT: Auricles normal inspection, hearing grossly normal, nares patent, oropharynx clear without exudates. Moist mucosa NECK: Normal ROM, supple, JVD, or masses LUNGS: Breath sounds equal, clear to auscultation bilaterally. No wheezes, and no crackles HEART: Regular rate and rhythm, normal S1 and S2, no murmurs, rubs or gallops ABDOMEN: Soft, nontender. No guarding, no rebound. No masses EXTREMITIES: Normal range of motion, no edema. No clubbing or cyanosis. No cords, erythema, or tenderness NEUROLOGICAL: Cranial nerves II through XII grossly intact. SKIN: Warm, Dry, normal turgor, no rashes or lesions noted. 07/13/18 05:41 <Sylvia Malave - Last Filed: 07/13/18 05:43>
[2018-07-13 05:57] LABS: BASO % 0.6 % (0-2.0); EOS % 0.2 % (0-4.5); HEMATOCRIT 42.1 % (32.4-45.2); HEMOGLOBIN 13.7 GM/dL (10.7-15.3); LYMPH % 10.9 % (8-40); MCH 24.9 pg (25.7-33.7); MCHC 32.5 g/dl (32.0-36.0); MEAN CELL VOLUME 76.6 fl (80-96); MEAN PLT VOLUME 8.2 fl (7.5-11.1); MONO % 4.9 % (3.8-10.2); NEUT % 83.4 % (42.8-82.8); PLATELET COUNT 333 K/MM3 (134-434); RBC 5.49 M/mm3 (3.60-5.2); RDW 17.2 % (11.6-15.6); WHITE BLOOD COUNT 15.3 K/mm3 (4.0-10.0)
--- NOTE | 2018-07-13 07:24 | PDOC ---
*Physical Exam - Vital Signs Last Vital Signs Temp Pulse Resp BP Pulse Ox 98.7 F 91 H 22 H 134/78 94 L 07/13/18 04:02 07/13/18 04:02 07/13/18 04:02 07/13/18 04:02 07/13/18 04:02 - Physical Exam General Appearance: Yes: Appropriately Dressed. No: Apparent Distress HEENT: positive: Normal Voice Respiratory/Chest: negative: Respiratory Distress, Labored Respiration Cardiovascular: positive: Regular Rate (Strong radial pulse) ED Treatment Course - LABORATORY CBC & Chemistry Diagram: 07/13/18 05:43 07/13/18 07:35 - ADDITIONAL ORDERS Additional order review: Laboratory Results 07/13/18 05:43 Sodium Cancelled Potassium Cancelled Chloride Cancelled Carbon Dioxide Cancelled Anion Gap Cancelled BUN Cancelled Creatinine Cancelled Creat Clearance w eGFR Cancelled Random Glucose Cancelled Calcium Cancelled Total Bilirubin Cancelled AST Cancelled ALT Cancelled Alkaline Phosphatase Cancelled Total Protein Cancelled Albumin Cancelled 07/13/18 05:43 RBC 5.49 H MCV 76.6 L MCHC 32.5 RDW 17.2 H MPV 8.2 Neutrophils % 83.4 H D Lymphocytes % 10.9 D Monocytes % 4.9 Eosinophils % 0.2 D Basophils % 0.6 Medical Decision Making - Medical Decision Making 07/13/18 07:20 Received sign out from resident Dr. Preston. In short, the pt is a 58 y/o female presenting for partial seizure in left leg in setting of known seizure disorder managed by Trileptal. Pt reported noncompliance with medication and endorses EtOH intake last evening. Had a generalized seizure. Given Versed by EMS. No further seizures witnessed in the department. CBC revealed leukocytosis to 15 believed to be reaction. CMP hemolyzed, will redraw. Will obtain UA and follow up with pt's private neurologist, Dr. Mcrae. CMP unremarkable for metabolic derangement. Will prescribe morning Trileptal and antihypertensives at home dosing. 07/13/18 08:54 Telephone page sent for Dr. Talbert, covering physician for Dr. Mcrae. Awaiting call back. 07/13/18 13:55 Still awaiting call back from physician covering for Dr. Mcrae. No further seizure activity observed in the department. UA remarkable for few WBC and few leukocyte esterase without nitrites. Low suspicion for UTI as pt has no urinary complaints. Will not prescribe antibiotics at this time. Pt is stable for discharge. Discussed laboratory results with pt. Answered all questions. Provided return precautions. Pt expressed verbal understanding and agreement with plan to discharge home with outpatient follow up. *DC/Admit/Observation/Transfer Diagnosis at time of Disposition: Seizure - Discharge Dispostion Disposition: HOME Condition at time of disposition: Stable Decision to Admit order: No - Referrals Referrals: Luanne Carlton MD [Primary Care Provider] - - Patient Instructions Printed Discharge Instructions: DI for Seizure Disorder -- Adult Additional Instructions: You were seen today for seizure activity. This was likely because you missed taking your medication yesterday. Your blood work was normal today. You should follow up with your neurologist or your primary care doctor within the next 3-4 days. Be sure to take your evening medication as you do normally. No changes were made to your medications today. Go to the nearest emergency department if your condition worsens or you need additional emergency evaluation. Print Language: SOMALI - Post Discharge Activity
[2018-07-13] MEDS ORDERED: OXcarbazepine 300 MG/5 ML 250 ML BULK BOTTLE PO ONE (08:27)
[2018-07-13] MEDS ORDERED: METOPROLOL TARTRATE 50 MG TABLET (FP) PO ONE (08:28)
[2018-07-13] MEDS ORDERED: METOPROLOL TARTRATE 50 MG TABLET (FP) ONE (08:32)
[2018-07-13] MEDS ORDERED: NIFEdipine E.R. 30 MG TABLET (FP) ONE (08:32)
[2018-07-13 08:40] LABS: ALBUMIN 3.6 g/dl (3.4-5.0); ALK PHOS 91 U/L (45-117); ANION GAP 8 MMOL/L (8-16); BILIRUBIN,TOTAL 0.2 mg/dL (0.2-1); BLOOD UREA NITROGEN 24 mg/dL (7-18); CALCIUM 9.3 mg/dL (8.5-10.1); CHLORIDE 109 mmol/L (98-107); CO2 24 mmol/L (21-32); CREATININE 1.2 mg/dL (0.55-1.3); GLUCOSE,RANDOM 130 mg/dL (74-106); POTASSIUM 3.8 mmol/L (3.5-5.1); SGOT/AST 21 U/L (15-37); SGPT/ALT 29 U/L (13-61); SODIUM 141 mmol/L (136-145); TOT PROT 7.1 g/dl (6.4-8.2)
[2018-07-13 09:07] LABS: URINE APPEARANCE SLCLOUDY; URINE BILIRUBIN NEGATIVE (<2.0 mg/dL); URINE COLOR LTYELLOW; URINE GLUCOSE (UA) NEGATIVE (NEGATIVE); URINE KETONE NEGATIVE (NEGATIVE); URINE LEUK ESTERASE TRACE (NEGATIVE); URINE NITRITE NEGATIVE (NEGATIVE); URINE PROTEIN 2+ (NEGATIVE); URINE UROBILINOGEN NEGATIVE mg/dL (0.2-1.0)
[2018-07-13 09:10] LABS: EPI CELLS RARE /HPF (FEW); URINE BACTERIA MANY /hpf (NONE SEEN); URINE MUCUS RARE
[2018-07-13] MEDS ORDERED: NIFEdipine E.R 60 MG TABLET (UD) PO SCH (10:00)
[2018-07-13 12:17] VITALS: BP 180/100; PULSE 92
== END 2018-07-13 14:35 | disposition home or self-care (01) ==
LOC: JER 04:02
DX: G40.802 Other epilepsy, not intractable, without status epilepticus (principal); I10 Essential (primary) hypertension; I69.898 Other sequelae of other cerebrovascular disease; H53.8 Other visual disturbances; Z88.8 Allergy status to other drugs, medicaments and biological substances
CPT/HCPCS: 36415; 71045-TC-FY; 80053; 81003; 81015; 85025; 87086; 99283-25

== ENCOUNTER → 2018-08-09 | Emergency (ER) | payer OTHER ==
[~2018-08-09] MED LIST: METOCLOPRAMIDE HCL INJECTION 10 MG/2 ML VIAL ONE; OXcarbazepine 150 MG TABLET (UD) PO ONE
[2018-08-09 17:45] VITALS: TEMP 99.2; BMI 59.5
--- NOTE | 2018-08-09 18:00 | PDOC ---
History of Present Illness - General Chief Complaint: Seizure Stated Complaint: SEIZURE Time Seen by Provider: 08/09/18 17:48 - History of Present Illness Initial Comments: The patient is a 58F w/ a history of seizure d/o and HTN who presents for evaluation s/p seizure. Patient initially post-ictal and unable to give thorough history. Endorses compliance w/ medications. Denies recent fevers/illness Per sister, patient was seating at dinning table, when seizure onset occurred. Patient did not fall or hit her head. Typical of previous seizure-like activity per sister. Sister also denies hx of patient having recent illness, fever, or other states complaints. PCP: Dr. Roger Neurologist: Dr. Mcrae. 08/09/18 18:01 Past History - Past Medical History Allergies/Adverse Reactions: Allergies Allergy/AdvReac Type Severity Reaction Status Date / Time levetiracetam [From Keppra] AdvReac Verified 08/09/18 17:46 phenytoin sodium AdvReac Verified 08/09/18 17:46 [From Dilantin] phenytoin sodium extended AdvReac Verified 08/09/18 17:46 [From Dilantin] Home Medications: Ambulatory Orders Aspirin [ASA -] 81 mg PO DAILY 12/29/15 Metoprolol Tartrate [Lopressor -] 50 mg PO BID #60 tab 10/26/17 Nifedipine [Procardia Xl] 60 mg PO DAILY #30 tab 10/26/17 Oxcarbazepine 150 mg PO BID #60 tablet 10/26/17 Timolol 0.5% [Timoptic 0.5%] 1 drop OU DAILY #1 bottle 10/26/17 Hydrochlorothiazide [Hctz -] 25 mg PO DAILY 08/09/18 CVA: Yes (Right hemmohagic stroke 2005 - residual loss of left peripheral vision) COPD: No CHF: No HTN: Yes Hypercholesterolemia: Yes Seizures: Yes (Post-CVA) - Suicide/Smoking/Psychosocial Hx Smoking History: Never smoked Have you smoked in the past 12 months: No Information on smoking cessation initiated: No Hx Alcohol Use: No Drug/Substance Use Hx: No Substance Use Type: None Review of Systems - Review of Systems Able to Perform ROS?: Yes Comments:: Performed s/p post-ictal state resolution GENERAL/CONSTITUTIONAL: No fever or chills HEAD, EYES, EARS, NOSE AND THROAT: No change in vision. No ear pain or discharge. No sore throat CARDIOVASCULAR: No chest pain or shortness of breath RESPIRATORY: Denies cough, hemoptysis GASTROINTESTINAL: No nausea, vomiting, diarrhea or constipation GENITOURINARY: No dysuria, frequency, or change in urination MUSCULOSKELETAL: No joint or muscle swelling or pain. No neck or back pain SKIN: No rash NEUROLOGIC: Denies vertigo, acute change in sensation ENDOCRINE: No increased thirst. No abnormal weight change HEMATOLOGIC/LYMPHATIC: No anemia, easy bleeding, or history of blood clots ALLERGIC/IMMUNOLOGIC: No hives or skin allergy 08/09/18 17:56 Is the patient limited Vietnamese proficient: No *Physical Exam - Vital Signs Last Vital Signs Temp Pulse Resp BP Pulse Ox 99.2 F 85 16 158/104 H 100 08/09/18 17:05 08/09/18 17:05 08/09/18 17:05 08/09/18 17:05 08/09/18 17:05 - Physical Exam Comments: GENERAL: Awake, oriented x3, appears tired HEAD: No signs of trauma, normocephalic, atraumatic EYES: PERRLA, EOMI, sclera anicteric, conjunctiva clear ENT: Hearing grossly normal, nares patent, oropharynx clear without exudates LUNGS: No distress, clear to auscultation bilaterally HEART: Regular rate and rhythm, normal S1 and S2, no murmurs appreciated, peripheral pulses normal and equal bilaterally ABDOMEN: Soft, nontender, normoactive bowel sounds. No guarding, no rebound EXTREMITIES : Normal inspection, Normal range of motion, no edema. No clubbing or cyanosis NEUROLOGICAL: Oriented x3, no obvious focal deficit, intermittent volitional participation in exam, sensation intact throughout SKIN: Warm, Dry 08/09/18 18:11 Moderate Sedation - Procedure Monitoring Vital Signs: Procedure Monitoring Vital Signs Temperature 99.2 F 08/09/18 17:05 Pulse Rate 85 08/09/18 17:05 Respiratory Rate 16 08/09/18 17:05 Blood Pressure 158/104 H 08/09/18 17:05 O2 Sat by Pulse Oximetry (%) 100 08/09/18 17:05 ED Treatment Course - LABORATORY CBC & Chemistry Diagram: 08/09/18 19:52 08/09/18 19:52 Medical Decision Making - Medical Decision Making The pt is a 58F w/ a hx of seizure d/o and HTN who presents for evaluation s/p seizure today w/o fall or variation from described previous seizure activity. ED Course CMP, CBC, Lamictal level No leukocytosis No anemia No RAMYA LFTs wnl Lytes wnl Lamictal 150mg PO once 08/09/18 21:12 Patient returned to baseline, conversing in full sentences, and tolerating PO Pt to f/u w/ Dr. Mcrae within 1 week Discharge instruction and return precautions given Patient in agreement and verbalized understanding Dispo: home 08/09/18 21:33 *DC/Admit/Observation/Transfer Diagnosis at time of Disposition: Seizure - Discharge Dispostion Disposition: HOME Condition at time of disposition: Improved Decision to Admit order: No - Referrals Referrals: Aditi Roger MD [Primary Care Provider] - Lenard Mcrae MD [Staff Physician] - - Patient Instructions Printed Discharge Instructions: DI for Seizure Disorder -- Adult Additional Instructions: You were seen in the Emergency Department today for evaluation after seizure. You were given your PM dose of Trileptal. Review the handout provided at discharge. Follow up with Dr. Mcrae. Return to the Emergency Department if you develop fevers/chills, changes in seizure activity, vision changes, chest pain, trouble breathing, vomiting, or any new/concerning symptoms. - Post Discharge Activity Forms/Work/School Notes: Back to Work
--- NOTE | 2018-08-09 18:47 | PDOC ---
Attending Attestation - HPI HPI: 08/09/18 18:47 The patient is a 58 year old female, brought in by EMS, with a past medical history of seizures and HTN who presents to the emergency department for evaluation s/p seizure. The patient states she was seated on her loveseat with the onset of a seizure. Patient denies head trauma. Denies recent fevers/illness. PCP: Dr. Roger Neurologist: Dr. Mcrae. - Physicial Exam PE: 08/09/18 18:47 GENERAL: Well developed, well nourished. Awake and alert. No acute distress. HEENT: Normocephalic, atraumatic. PERRLA, EOMI. No conjunctival pallor. Sclera are non- icteric. Moist mucous membranes. Oropharynx is clear. NECK: Supple. Full ROM. No JVD. Carotid pulses 2+ and symmetric, without bruits. No thyromegaly. No lymphadenopathy. CARDIOVASCULAR: Regular rate and rhythm. No murmurs, rubs, or gallops. Distal pulses are 2+ and symmetric. PULMONARY: No evidence of respiratory distress. Lungs clear to auscultation bilaterally. No wheezing, rales or rhonchi. ABDOMINAL: + protuberant Soft. Non-tender. Non-distended. No rebound or guarding. No organomegaly. Normoactive bowel sounds. MUSCULOSKELETAL Normal range of motion at all joints. No bony deformities or tenderness. No CVA tenderness. EXTREMITIES: No cyanosis. No clubbing. No edema. No calf tenderness.No trauma. No deformities. SKIN: Warm and dry. Normal capillary refill. No rashes. No jaundice. NEUROLOGICAL: + post-ictal Alert, awake, appropriate. Cranial nerves 2-12 intact. Normoreflexic in the upper and lower extremities. Normal speech. Toes are down-going bilaterally. Gait is normal without ataxia. PSYCHIATRIC: + selectively answers questions and volitionally tightens eyes closed and turns her head while speaking. Cooperative. Appropriate mood and affect. - Medical Decision Making 08/09/18 18:47 Documentation prepared by Stephanie Bob, acting as medical staff credentialing coordinator for Marija Costa MD <Stephanie Bob - Last Filed: 08/09/18 18:53> - Resident Resident Name: Tono Child - ED Attending Attestation I have performed the following: I have examined & evaluated the patient, The case was reviewed & discussed with the resident, I agree w/resident's findings & plan, Exceptions are as noted - Medical Decision Making 08/09/18 19:53 blood pressure 158/98 Patient's sister states that the patient did not fall when she had her seizure. She was actually seen in a chair at the time of the witnessed seizure There are no signs of head trauma. 08/09/18 20:18 labs reviewed pt has h/o prolonged post ictal periods 08/09/18 21:04 08/09/18 21:[address] Mcrae and she will be given an extre trileptal 150mg po and d/c home with neurology follow up in one week <Marija Costa - Last Filed: 08/09/18 21:33>
[2018-08-09 19:23] VITALS: BP 154/98; PULSE 67
[2018-08-09 20:53] LABS: BASO % 0.3 % (0-2.0); EOS % 0.1 % (0-4.5); HEMATOCRIT 41.4 % (32.4-45.2); HEMOGLOBIN 13.9 GM/dL (10.7-15.3); LYMPH % 15.2 % (8-40); MCHC 33.5 g/dl (32.0-36.0); MEAN CELL VOLUME 74.5 fl (80-96); MEAN PLT VOLUME 7.9 fl (7.5-11.1); MONO % 3.7 % (3.8-10.2); NEUT % 80.7 % (42.8-82.8); PLATELET COUNT 386 K/MM3 (134-434); RBC 5.56 M/mm3 (3.60-5.2); RDW 16.7 % (11.6-15.6); WHITE BLOOD COUNT 7.7 K/mm3 (4.0-10.0)
[2018-08-09 21:29] LABS: ALBUMIN 3.5 g/dl (3.4-5.0); ALK PHOS 74 U/L (45-117); ANION GAP 8 MMOL/L (8-16); BILIRUBIN,TOTAL 0.3 mg/dL (0.2-1); BLOOD UREA NITROGEN 21 mg/dL (7-18); CALCIUM 9.3 mg/dL (8.5-10.1); CHLORIDE 104 mmol/L (98-107); CO2 26 mmol/L (21-32); CREATININE 1.3 mg/dL (0.55-1.3); GLUCOSE,RANDOM 94 mg/dL (74-106); PHOSPHOROUS 3.9 mg/dL (2.5-4.9); POTASSIUM 4.7 mmol/L (3.5-5.1); SGOT/AST 14 U/L (15-37); SGPT/ALT 18 U/L (13-61); SODIUM 138 mmol/L (136-145); TOT PROT 7.3 g/dl (6.4-8.2)
[2018-08-09 22:25] LABS: MAGNESIUM 2.3 mg/dL (1.8-2.4)
== END | disposition home or self-care (01) ==
LOC: JER 17:04
DX: G40.909 Epilepsy, unspecified, not intractable, without status epilepticus (principal); I10 Essential (primary) hypertension; I69.898 Other sequelae of other cerebrovascular disease; H53.8 Other visual disturbances
CPT/HCPCS: 36415; 80053; 80183; 82550; 83735; 84100; 85025; 99282-25

== ENCOUNTER 2018-10-12 22:16 | Inpatient (IN) | payer OTHER ==
--- NOTE | 2018-10-12 22:40 | PDOC ---
Attending Attestation - HPI HPI: 10/12/18 23:17 Patient is a 58 year old female with a significant past medical history of R sided hemorrhagic stroke with complex partial seizures as a result, HTN, HLD, who presents to the ED with complaints of seizure like episode that occured 1.5 hours prior to ED arrival. As per patient's family at bedside patient stated that she felt her seizure coming on. Family reports her legs were shaking. EMS reports giving 5 versed IV in the field. Seizures resolved at that time. Family reports no trauma, fevers, chills. Takes trileptal 150 mg BID. Denies chest pain, Sob. Denies nausea, vomiting. Denies fevers, chills. Denies dysuria, hematuria. Denies constipation, diarrhea. Denies contact with sick individuals, out of state travelling. Denies any other symptoms. Allergies: levetiracetam, phenytoin sodium, phenytoin sodium extended Social history: No smoking. No alcohol. No illicit drugs. Surgical history: None PMD: Dr. Roger - Physicial Exam PE: 10/12/18 23:17 Agree with residents Physical Exam. <David Francisco - Last Filed: 10/12/18 23:17> - Resident Resident Name: Igor Cleaning - ED Attending Attestation I have performed the following: I have examined & evaluated the patient, The case was reviewed & discussed with the resident, I agree w/resident's findings & plan - Medical Decision Making 10/13/18 00:54 58-year-old female with history of seizure disorder status post hemorrhagic CVA with seizures according to family There is no associated known trauma Patient had multiple focal seizures in the emergency department She received Versed 5 mg prior to arrival and required Ativan 2 mg IV in the emergency department Due to multiple seizures and prolonged postictal state she will be admitted to the hospital for further evaluation Call placed to her neurologist by the emergency department resident as well to discuss the case <Madelin Castro - Last Filed: 10/13/18 00:55>
--- NOTE | 2018-10-12 23:04 | PDOC ---
History of Present Illness - General Chief Complaint: Seizure Stated Complaint: SEIZURE Time Seen by Provider: 10/12/18 22:30 History Source: Patient, Family Exam Limitations: Clinical Condition - History of Present Illness Initial Comments: 10/12/18 22:47 Patient is a 58F with history of R sided hemorrhagic stroke with complex partial seizures as a result, HTN, HLD here today with seizure. Family at bedside states that at about 1.5 hours prior to arrival patient stated that she felt her seizure coming on. Family reports her legs were shaking. EMS reports giving 5 versed IV in the field. Seizures resolved at that time. Family reports no trauma, fevers, chills. Takes trileptal 150mg BID. Neuro: Clementina PCP: Vicky Past History - Past Medical History Allergies/Adverse Reactions: Allergies Allergy/AdvReac Type Severity Reaction Status Date / Time levetiracetam [From Keppra] AdvReac Verified 10/12/18 22:21 phenytoin sodium AdvReac Verified 10/12/18 22:21 [From Dilantin] phenytoin sodium extended AdvReac Verified 10/12/18 22:21 [From Dilantin] Home Medications: Ambulatory Orders Aspirin [ASA -] 81 mg PO DAILY 12/29/15 Metoprolol Tartrate [Lopressor -] 50 mg PO BID #60 tab 10/26/17 Nifedipine [Procardia Xl] 60 mg PO DAILY #30 tab 10/26/17 Oxcarbazepine 150 mg PO BID #60 tablet 10/26/17 Timolol 0.5% [Timoptic 0.5%] 1 drop OU DAILY #1 bottle 10/26/17 Hydrochlorothiazide [Hctz -] 25 mg PO DAILY 08/09/18 CVA: Yes (Right hemmohagic stroke 2005 - residual loss of left peripheral vision) COPD: No CHF: No HTN: Yes Hypercholesterolemia: Yes Seizures: Yes (Post-CVA) - Suicide/Smoking/Psychosocial Hx Smoking History: Never smoked Have you smoked in the past 12 months: No Hx Alcohol Use: No Drug/Substance Use Hx: No Substance Use Type: None Review of Systems - Review of Systems Able to Perform ROS?: No (2/2 clinical condition) *Physical Exam - Vital Signs Last Vital Signs Temp Pulse Resp BP Pulse Ox 98.3 F 93 H 22 H 163/95 100 10/12/18 22:19 10/12/18 22:19 10/12/18 22:19 10/12/18 22:19 10/12/18 22:19 - Physical Exam Comments: 10/12/18 23:04 GENERAL: Awake, alert, and fully oriented, confused HEAD: No signs of trauma, normocephalic, atraumatic EYES: PERRLA, EOMI, sclera anicteric, conjunctiva clear ENT: Auricles normal inspection, hearing grossly normal, nares patent, oropharynx clear without exudates. Moist mucosa NECK: Normal ROM, supple, no lymphadenopathy, JVD, or masses, no midline tenderness LUNGS: No distress, speaks full sentences, clear to auscultation bilaterally HEART: Regular rate and rhythm, normal S1 and S2, no murmurs, rubs or gallops, peripheral pulses normal and equal bilaterally. ABDOMEN: Soft, nontender, normoactive bowel sounds. No guarding, no rebound. No masses EXTREMITIES: Normal inspection, Normal range of motion, no edema. No clubbing or cyanosis. NEUROLOGICAL: Cranial nerves II through XII grossly intact. Slurred speech, no focal sensorimotor deficits SKIN: Warm, Dry, normal turgor, no rashes or lesions noted. ED Treatment Course - LABORATORY CBC & Chemistry Diagram: 10/13/18 00:14 10/13/18 00:45 Medical Decision Making - Medical Decision Making 10/12/18 23:06 Patient is a 58F with history of hemorrhagic stroke, partial seizures here today with seizure. Vitals normal and stable. Alert and oriented, postictal and on versed. No acute neuro deficits. Do not suspect stroke, no need for ct given known disorder. Will observe, draw labs for metabolic abnormality. 10/13/18 02:54 Patient had second seizure, given 2mg of ativan, resolved after ~5 minutes. R arm shaking, Leg shaking.\ Case discussed with Dr Mcrae, will continue to give ativan PRN as needed. Will see patient in morning CBC normal. CMP reassuring. CT head shows old infarct. Case discussed with Dr Castillo. *DC/Admit/Observation/Transfer Diagnosis at time of Disposition: Seizure - Discharge Dispostion Condition at time of disposition: Stable - Referrals - Patient Instructions - Post Discharge Activity
[2018-10-12] MEDS ORDERED: LORazepam 2 MG/ML SDV VIAL ONE (23:58)
[2018-10-13 00:33] LABS: HEMATOCRIT 42.1 % (32.4-45.2); HEMOGLOBIN 13.3 GM/dL (10.7-15.3); MCH 24.8 pg (25.7-33.7); MCHC 31.5 g/dl (32.0-36.0); MEAN CELL VOLUME 78.7 fl (80-96); MEAN PLT VOLUME 8.6 fl (7.5-11.1); PLATELET COUNT 282 K/MM3 (134-434); RBC 5.35 M/mm3 (3.60-5.2); RDW 18.2 % (11.6-15.6); WHITE BLOOD COUNT 8.8 K/mm3 (4.0-10.0)
--- NOTE | 2018-10-13 01:01 | PN ---
Teaching Attending Note Name of Resident: Fernando Castillo ATTENDING PHYSICIAN STATEMENT I saw and evaluated the patient. I reviewed the resident's note and discussed the case with the resident. I agree with the resident's findings and plan as documented. SUBJECTIVE: Patient is a 58 year old woman with a significant past medical history of R sided hemorrhagic stroke with complex partial seizures as a result, HTN and HLD , who presents to the ED with complaints of seizure like episode that occured 1.5 hours prior to ED arrival. As per patient's family at bedside patient stated that she felt her seizure coming on. Family reports her legs were shaking. EMS reports giving 5 versed IV in the field. Seizures resolved at that time. Family reports no trauma, fevers, chills. Takes trileptal 150 mg BID. Denies chest pain or SOB. Denies nausea, vomiting. Denies fevers, chills. Denies dysuria, hematuria. Denies constipation, diarrhea. Denies contact with sick individuals, out of state travelling. OBJECTIVE: Somnolent but arousable Vital Signs Period Temp Pulse Resp BP Sys/Lewis Pulse Ox Last 24 Hr 98.3 F 93 22 163/95 100 HEENT: No Jaundice, eye redness or discharge, PERRLA, EOMI. Normocephalic, atraumatic. External ears are normal and hearing is grossly intact. No nasal discharge. Neck: Supple, nontender. No palpable adenopathy or thyromegaly. No JVD Chest: Good effort. Clear to auscultation and percussion. Heart: Tachycardia. No S3, rub or murmur Abdomen: Not distended, soft, nontender and no HSM. No rebound or guarding. Normal bowel sounds. Ext: Peripheral pulses intact. No leg edema. Skin: Warm and dry. No petechiae, rash or ecchymosis. Neuro: Somnolent but arousable. Oriented to person. CN 2-12 grossly intact. Sensation grossly intact in all four extremities and DTR are symmetric. Psych: Appropriate mood and affect. Good insight. Home Medications Medication Instructions Recorded Aspirin [ASA -] 81 mg PO DAILY 12/29/15 Metoprolol Tartrate [Lopressor -] 50 mg PO BID #60 tab 10/26/17 Nifedipine [Procardia Xl] 60 mg PO DAILY #30 tab 10/26/17 Oxcarbazepine 150 mg PO BID #60 tablet 10/26/17 Timolol 0.5% [Timoptic 0.5%] 1 drop OU DAILY #1 bottle 10/26/17 Hydrochlorothiazide [Hctz -] 25 mg PO DAILY 08/09/18 Abnormal Lab Results 10/13/18 00:14 RBC 5.35 H MCV 78.7 L MCH 24.8 L MCHC 31.5 L RDW 18.2 H ASSESSMENT AND PLAN: 1. Breakthrough Seizures - No obvious precipitating factor. No acute pathology on head CT. EKG shows sinus tachycardia. Neurology consulted. Will give ativan PRN for seizures, and continue home dose of oxcarbazepine pending level. Implement neurochecks, fall, seizure and aspiration precautions. Keep her NPO until she is fully alert. 2. Morbid Obesity Counseled on the risks associated with obesity. Will provide patient all the necessary assistance, counseling and positive reinforcement to facilitate weight loss. Consult legal secretary. 3. Ucontrolled Hypertension - Restart outpatient antihypertensive drugs and revise regimen to ensure smooth [id number] good BP control. Nonpharmacologic measures to control hypertension like weight loss, salt restriction and exercise discussed. 4. DVT prophylaxis - Lovenox 40 mg SQ q 12 hours. 5. Advance directives - Full code
[2018-10-13 01:19] LABS: ALBUMIN 3.6 g/dl (3.4-5.0); ALK PHOS 89 U/L (45-117); ANION GAP 9 MMOL/L (8-16); BILIRUBIN,TOTAL 0.3 mg/dL (0.2-1); BLOOD UREA NITROGEN 19 mg/dL (7-18); CALCIUM 9.2 mg/dL (8.5-10.1); CHLORIDE 108 mmol/L (98-107); CO2 23 mmol/L (21-32); CREATININE 0.8 mg/dL (0.55-1.3); GLUCOSE,RANDOM 102 mg/dL (74-106); POTASSIUM 4.1 mmol/L (3.5-5.1); SGOT/AST 14 U/L (15-37); SGPT/ALT 16 U/L (13-61); SODIUM 140 mmol/L (136-145); TOT PROT 7.5 g/dl (6.4-8.2)
--- NOTE | 2018-10-13 02:39 | HP ---
CHIEF COMPLAINT: seizure PCP:Dr Wharton HISTORY OF PRESENT ILLNESS: Patient is a 58 year old female with a significant past medical history of R sided hemorrhagic stroke with complex partial seizures as a result, HTN, HLD, who presents to the ED with complaints of seizure like episode that occured 1.5 hours prior to ED arrival. As per patient's family at bedside patient stated that she felt her seizure coming on. Family reports her legs were shaking. EMS reports giving 5 versed IV in the field. Seizures resolved at that time. Family reports no trauma, fevers, chills. Takes trileptal 150 mg BID. Denies chest pain, Sob. Denies nausea, vomiting. Denies fevers, chills. Denies dysuria, hematuria. Denies constipation, diarrhea. Denies contact with sick individuals, out of state travelling. Denies any other symptoms. Allergies: levetiracetam, phenytoin sodium, phenytoin sodium extended Social history: No smoking. No alcohol. No illicit drugs. Surgical history: None PMD: Dr. Roger ER course was notable for: (1) Head CT (2)Lorazipam x1 (3)Cbcm cmp Recent Travel: denies PAST MEDICAL HISTORY: as per HPI PAST SURGICAL HISTORY: not able to obtain Social History: Smoking:denies Alcohol:denies Drugs: denies Family History:non contributory Allergies levetiracetam [From Keppra] Adverse Reaction (Verified 10/12/18 22:21) phenytoin sodium [From Dilantin] Adverse Reaction (Verified 10/12/18 22:21) phenytoin sodium extended [From Dilantin] Adverse Reaction (Verified 10/12/18 22 :21) HOME MEDICATIONS: Home Medications Medication Instructions Recorded Aspirin [ASA -] 81 mg PO DAILY 12/29/15 Metoprolol Tartrate [Lopressor -] 50 mg PO BID #60 tab 10/26/17 Nifedipine [Procardia Xl] 60 mg PO DAILY #30 tab 10/26/17 Oxcarbazepine 150 mg PO BID #60 tablet 10/26/17 Timolol 0.5% [Timoptic 0.5%] 1 drop OU DAILY #1 bottle 10/26/17 Hydrochlorothiazide [Hctz -] 25 mg PO DAILY 08/09/18 REVIEW OF SYSTEMS: not able to obtain CONSTITUTIONAL: Absent: fever, chills, diaphoresis, generalized weakness, malaise, loss of appetite, weight change HEENT: Absent: rhinorrhea, nasal congestion, throat pain, throat swelling, difficulty swallowing, mouth swelling, ear pain, eye pain, visual changes CARDIOVASCULAR: Absent: chest pain, syncope, palpitations, irregular heart rate, lightheadedness , peripheral edema RESPIRATORY: Absent: cough, shortness of breath, dyspnea with exertion, orthopnea, wheezing, stridor, hemoptysis GASTROINTESTINAL: Absent: abdominal pain, abdominal distension, nausea, vomiting, diarrhea, constipation, melena, hematochezia GENITOURINARY: Absent: dysuria, frequency, urgency, hesitancy, hematuria, flank pain, genital pain MUSCULOSKELETAL: Absent: myalgia, arthralgia, joint swelling, back pain, neck pain SKIN: Absent: rash, itching, pallor HEMATOLOGIC/IMMUNOLOGIC: Absent: easy bleeding, easy bruising, lymphadenopathy, frequent infections ENDOCRINE: Absent: unexplained weight gain, unexplained weight loss, heat intolerance, cold intolerance NEUROLOGIC: Absent: headache, focal weakness or paresthesias, dizziness, unsteady gait, seizure, mental status changes, bladder or bowel incontinence PSYCHIATRIC: Absent: anxiety, depression, suicidal or homicidal ideation, hallucinations. PHYSICAL EXAMINATION Vital Signs - 24 hr 10/12/18 22:19 Temperature 98.3 F Pulse Rate 93 H Respiratory 22 H Rate Blood Pressure 163/95 O2 Sat by Pulse 100 Oximetry (%) GENERAL:lethargic and sleepy , follow simple commands , arousable , obese lady HEAD: NC/AT EYES: EOMI, MICA , sclera anicteric ENT: moist mucous membrane NECK: Supple, no JVD, obese LUNGS: CTA B/L, no crackles no wheezing no accessory muscle use. HEART: RRR, NSR, normal s1, s2, murmur no M/R/G ABDOMEN: Obese ,Soft, ND, NT, +BS 4 Q, no CVA Tenderness LOWER EXTREMITIES: no edema, +2DP pulse, NEUROLOGICAL: No focal deficit. move all ext , no facial assymetry , MICA , EOMI , gait not observed.sleepy lethargic from Ativan Laboratory Results - last 24 hr 10/13/18 10/13/18 10/13/18 00:14 00:14 00:45 WBC 8.8 Cancelled Corrected WBC (auto) Cancelled RBC 5.35 H Cancelled Hgb 13.3 Cancelled Hct 42.1 Cancelled MCV 78.7 L Cancelled MCH 24.8 L Cancelled MCHC 31.5 L Cancelled RDW 18.2 H Cancelled Plt Count 282 D Cancelled MPV 8.6 Cancelled Absolute Neuts (auto) Cancelled Absolute Lymphs (auto) Cancelled Absolute Monos (auto) Cancelled Absolute Eos (auto) Cancelled Absolute Basos (auto) Cancelled Add Manual Diff Cancelled Neutrophils % Cancelled Lymphocytes % Cancelled Monocytes % Cancelled Eosinophils % Cancelled Basophils % Cancelled Nucleated RBC % Cancelled Platelet Estimate Cancelled Platelet Comment Cancelled Normal RBC Morphology Cancelled Sodium 140 Potassium 4.1 Chloride 108 H Carbon Dioxide 23 Anion Gap 9 BUN 19 H Creatinine 0.8 Creat Clearance w eGFR 73.93 Random Glucose 102 Calcium 9.2 Total Bilirubin 0.3 AST 14 L ALT 16 Alkaline Phosphatase 89 Total Protein 7.5 Albumin 3.6 Oxcarbazepine 10/13/18 10/13/18 00:45 00:45 WBC Corrected WBC (auto) RBC Hgb Hct MCV MCH MCHC RDW Plt Count MPV Absolute Neuts (auto) Absolute Lymphs (auto) Absolute Monos (auto) Absolute Eos (auto) Absolute Basos (auto) Add Manual Diff Neutrophils % Lymphocytes % Monocytes % Eosinophils % Basophils % Nucleated RBC % Platelet Estimate Platelet Comment Normal RBC Morphology Sodium Cancelled Potassium Cancelled Chloride Cancelled Carbon Dioxide Cancelled Anion Gap Cancelled BUN Cancelled Creatinine Cancelled Creat Clearance w eGFR Cancelled Random Glucose Cancelled Calcium Cancelled Total Bilirubin Cancelled AST Cancelled ALT Cancelled Alkaline Phosphatase Cancelled Total Protein Cancelled Albumin Cancelled Oxcarbazepine Cancelled CBC, BMP ASSESSMENT/PLAN: Patient is a 58 year old female with a significant past medical history of R sided hemorrhagic stroke with complex partial seizures as a result, HTN, HLD, who presents to the ED with complaints of seizure like episode admitted for tele for further evaluation. # Partial seizure * one episode before she came to hospital upper ext and one in ED * reports right arm trembling * Ativan PRN for seizure 1 MG Q 6hr PRN * NPO * consider EEG in AM * consider MRI in AM * Head CT pensing official reading * R.O infection , UA , CXR , * TSH * IV fluids NS@ 83 CC/hr * on Oxcarbazipin at home will resume and get blood level * Dr bland consulted (Ed resident called him recommend Ativan PRNa nd he will see pt in Am # Mild RAMYA * izzy pre renal will repeat lab after hydration # Uncontrolled HTN , post ictal * resume home meds and re evaluate BP # HLD * resume home meds H/O CVA Hemorrhagic * repeat CT head pending official reading * if no bleeding will resume ASA * Consider MRI in AM # Morbid obesity BMI 43.9 * consult when she is more awake # FEN * NS @ 83 CC/hr * Monitor lytes * NPO for now #Proph * DVTS : SCDS , hep SQ TID * Gi: No need for now # Dispo * tele obs # code status : Full code Visit type - Emergency Visit Emergency Visit: Yes ED Registration Date: 10/13/18 Care time: The patient presented to the Emergency Department on the above date and was hospitalized for further evaluation of their emergent condition. - New Patient This patient is new to me today: Yes Date on this admission: 10/13/18 - Critical Care Critical Care patient: No
[2018-10-13] MEDS ORDERED: SODIUM CHLORIDE 1,000 ML IV SCH (03:15)
[2018-10-13] MEDS ORDERED: HEPARIN NA (PORCINE) 5,000 UNITS/ML 1ML VIAL ONE (06:02)
[2018-10-13] MEDS: HEPARIN NA (PORCINE) 5,000 UNITS/ML 1ML VIAL SQ SCH ×3 (06:06→21:16)
[2018-10-13 08:12] LABS: ALBUMIN 3.4 g/dl (3.4-5.0); ALK PHOS 80 U/L (45-117); ANION GAP 11 MMOL/L (8-16); BILIRUBIN,TOTAL 0.3 mg/dL (0.2-1); BLOOD UREA NITROGEN 16 mg/dL (7-18); CALCIUM 8.7 mg/dL (8.5-10.1); CHLORIDE 109 mmol/L (98-107); CO2 23 mmol/L (21-32); CREATININE 0.9 mg/dL (0.55-1.3); GLUCOSE,RANDOM 91 mg/dL (74-106); MAGNESIUM 2.2 mg/dL (1.8-2.4); PHOSPHOROUS 3.7 mg/dL (2.5-4.9); POTASSIUM 3.8 mmol/L (3.5-5.1); SGOT/AST 16 U/L (15-37); SGPT/ALT 15 U/L (13-61); SODIUM 143 mmol/L (136-145); TOT PROT 6.8 g/dl (6.4-8.2)
[2018-10-13 09:05] LABS: BASO % 0.4 % (0-2.0); EOS % 0.1 % (0-4.5); HEMOGLOBIN 12.9 GM/dL (10.7-15.3); LYMPH % 17.4 % (8-40); MCH 24.4 pg (25.7-33.7); MCHC 32.3 g/dl (32.0-36.0); MEAN CELL VOLUME 75.6 fl (80-96); MEAN PLT VOLUME 8.4 fl (7.5-11.1); MONO % 7.9 % (3.8-10.2); NEUT % 74.2 % (42.8-82.8); PLATELET COUNT 338 K/MM3 (134-434); RBC 5.28 M/mm3 (3.60-5.2); RDW 18.3 % (11.6-15.6); WHITE BLOOD COUNT 9.7 K/mm3 (4.0-10.0)
--- NOTE | 2018-10-13 09:13 | PN ---
Progress Note (short form) - Note Progress Note: Neurology CHIEF COMPLAINT: seizure HISTORY OF PRESENT ILLNESS: 58 year old female with a significant past medical history of R sided hemorrhagic stroke with complex partial seizures as a result, HTN, HLD, who presented to the ED with complaints of reportedly seizure like episode that occured 1.5 hours prior to ED arrival. As per patient's family at bedside patient stated that she felt her seizure coming on. According to notes, family reported her legs were shaking. EMS reports giving 5 versed IV in the field. Seizures resolved at that time. Family reported no trauma, fevers, chills. Per med recon, she is on trileptal 150 mg BID. Was contacted by ER overnight and patient reportedly with seizure event in ED, reportedly given Ativan. CT head completed and without acute changes, labs reviewed. Advised trileptal level. Patient monitored overnight and no subsequent seizure. During my eval this AM, is somnolent but arousable, limited historian. Will adjust Trileptal to increase to 200mg twice daily from 150. Sodium level is in normal range. EEG ordered and being completed this AM (patient being called down during morning rounds for EEG). Discussed with nurse. Allergies: levetiracetam, phenytoin sodium, phenytoin sodium extended Social history: No smoking. No alcohol. No illicit drugs. Surgical history: None PMD: Dr. Roger Recent Travel: denies PAST MEDICAL HISTORY: as per HPI PAST SURGICAL HISTORY: not able to obtain Social History: Smoking:denies Alcohol:denies Drugs: denies Family History:non contributory Allergies levetiracetam [From Keppra] Adverse Reaction (Verified 10/12/18 22:21) phenytoin sodium [From Dilantin] Adverse Reaction (Verified 10/12/18 22:21) phenytoin sodium extended [From Dilantin] Adverse Reaction (Verified 10/12/18 22 :21) HOME MEDICATIONS: Home Medications Medication Instructions Recorded Aspirin [ASA -] 81 mg PO DAILY 12/29/15 Metoprolol Tartrate [Lopressor -] 50 mg PO BID #60 tab 10/26/17 Nifedipine [Procardia Xl] 60 mg PO DAILY #30 tab 10/26/17 Oxcarbazepine 150 mg PO BID #60 tablet 10/26/17 Timolol 0.5% [Timoptic 0.5%] 1 drop OU DAILY #1 bottle 10/26/17 Hydrochlorothiazide [Hctz -] 25 mg PO DAILY 08/09/18 REVIEW OF SYSTEMS: not able to obtain CONSTITUTIONAL: Absent: fever, chills, diaphoresis, generalized weakness, malaise, loss of appetite, weight change HEENT: Absent: rhinorrhea, nasal congestion, throat pain, throat swelling, difficulty swallowing, mouth swelling, ear pain, eye pain, visual changes CARDIOVASCULAR: Absent: chest pain, syncope, palpitations, irregular heart rate, lightheadedness , peripheral edema RESPIRATORY: Absent: cough, shortness of breath, dyspnea with exertion, orthopnea, wheezing, stridor, hemoptysis GASTROINTESTINAL: Absent: abdominal pain, abdominal distension, nausea, vomiting, diarrhea, constipation, melena, hematochezia GENITOURINARY: Absent: dysuria, frequency, urgency, hesitancy, hematuria, flank pain, genital pain MUSCULOSKELETAL: Absent: myalgia, arthralgia, joint swelling, back pain, neck pain SKIN: Absent: rash, itching, pallor HEMATOLOGIC/IMMUNOLOGIC: Absent: easy bleeding, easy bruising, lymphadenopathy, frequent infections ENDOCRINE: Absent: unexplained weight gain, unexplained weight loss, heat intolerance, cold intolerance NEUROLOGIC: Absent: headache, focal weakness or paresthesias, dizziness, unsteady gait, seizure, mental status changes, bladder or bowel incontinence PSYCHIATRIC: Absent: anxiety, depression, suicidal or homicidal ideation, hallucinations. PHYSICAL EXAMINATION Vital Signs Period Temp Pulse Resp BP Sys/Lewis Pulse Ox Last 24 Hr 98.3 F 79-93 14-22 163-168/95-102 98-100 GENERAL:lethargic and sleepy , follow simple commands , arousable , obese lady HEAD: NC/AT EYES: EOMI, MICA , sclera anicteric ENT: moist mucous membrane NECK: Supple, no JVD, obese LUNGS: CTA B/L, no crackles no wheezing no accessory muscle use. HEART: RRR, NSR, normal s1, s2, murmur no M/R/G ABDOMEN: Obese ,Soft, ND, NT, +BS 4 Q, no CVA Tenderness LOWER EXTREMITIES: no edema, +2DP pulse, NEUROLOGICAL: No focal deficit. move all ext , no facial assymetry , MICA , EOMI , gait not observed.sleepy lethargic from Ativan Laboratory Results - last 24 hr 10/13/18 10/13/18 10/13/18 00:14 00:14 00:45 WBC 8.8 Cancelled Corrected WBC (auto) Cancelled RBC 5.35 H Cancelled Hgb 13.3 Cancelled Hct 42.1 Cancelled MCV 78.7 L Cancelled MCH 24.8 L Cancelled MCHC 31.5 L Cancelled RDW 18.2 H Cancelled Plt Count 282 D Cancelled MPV 8.6 Cancelled Absolute Neuts (auto) Cancelled Absolute Lymphs (auto) Cancelled Absolute Monos (auto) Cancelled Absolute Eos (auto) Cancelled Absolute Basos (auto) Cancelled Add Manual Diff Cancelled Neutrophils % Cancelled Lymphocytes % Cancelled Monocytes % Cancelled Eosinophils % Cancelled Basophils % Cancelled Nucleated RBC % Cancelled Platelet Estimate Cancelled Platelet Comment Cancelled Normal RBC Morphology Cancelled Sodium 140 Potassium 4.1 Chloride 108 H Carbon Dioxide 23 Anion Gap 9 BUN 19 H Creatinine 0.8 Creat Clearance w eGFR 73.93 Random Glucose 102 Calcium 9.2 Total Bilirubin 0.3 AST 14 L ALT 16 Alkaline Phosphatase 89 Total Protein 7.5 Albumin 3.6 Oxcarbazepine 10/13/18 10/13/18 00:45 00:45 WBC Corrected WBC (auto) RBC Hgb Hct MCV MCH MCHC RDW Plt Count MPV Absolute Neuts (auto) Absolute Lymphs (auto) Absolute Monos (auto) Absolute Eos (auto) Absolute Basos (auto) Add Manual Diff Neutrophils % Lymphocytes % Monocytes % Eosinophils % Basophils % Nucleated RBC % Platelet Estimate Platelet Comment Normal RBC Morphology Sodium Cancelled Potassium Cancelled Chloride Cancelled Carbon Dioxide Cancelled Anion Gap Cancelled BUN Cancelled Creatinine Cancelled Creat Clearance w eGFR Cancelled Random Glucose Cancelled Calcium Cancelled Total Bilirubin Cancelled AST Cancelled ALT Cancelled Alkaline Phosphatase Cancelled Total Protein Cancelled Albumin Cancelled Oxcarbazepine Cancelled ASSESSMENT/PLAN: 58 year old female with a significant past medical history of R sided hemorrhagic stroke with complex partial seizures as a result, HTN, HLD, who presented to the ED with complaints of reportedly seizure like episode that occured 1.5 hours prior to ED arrival. As per patient's family at bedside patient stated that she felt her seizure coming on. According to notes, family reported her legs were shaking. EMS reports giving 5 versed IV in the field. Seizures resolved at that time. Family reported no trauma, fevers, chills. Per med recon, she is on trileptal 150 mg BID. Was contacted by ER overnight and patient reportedly with seizure event in ED, reportedly given Ativan. CT head completed and without acute changes, labs reviewed. Advised trileptal level. Patient monitored overnight and no subsequent seizure. During my eval this AM, is somnolent but arousable, limited historian. Will adjust Trileptal to increase to 200mg twice daily from 150. Sodium level is in normal range. EEG ordered and being completed this AM (patient being called down during morning rounds for EEG). Discussed with nurse. Would advise checking Utox and sending off trileptal level (reportedly cancelled per EMR). Follow up EEG results, seizure precautions. Adequate hydration recommended, prerenal on labs. Monitor BP, maintain normotensive range, continue antiHTN medications.
[2018-10-13 09:32] LABS: INR 1.04 (0.83-1.09); PROTHROMBIN TIME (PATIENT) 12.3 SEC (9.7-13.0)
[2018-10-13 09:34] LABS: ACTIVATED PTT 37.3 SECONDS (25.2-36.5)
[2018-10-13] MEDS ORDERED: OXcarbazepine 150 MG TABLET (UD) PO SCH (10:00)
[2018-10-13] MEDS ORDERED: HYDROCHLOROTHIAZIDE 25 MG TABLET (FP) PO SCH (10:00)
[2018-10-13] MEDS ORDERED: PT OWN MED DRAWER 7, Y5N ONE ×3 (10:36→21:08)
[2018-10-13] MEDS: METOPROLOL TARTRATE 50 MG TABLET (FP) PO SCH ×2 (10:42→21:16)
[2018-10-13] MEDS: NIFEdipine E.R 60 MG TABLET (UD) PO SCH (10:42)
[2018-10-13] MEDS: OXcarbazepine 300 MG/5 ML 250 ML BULK BOTTLE PO SCH ×2 (10:43→21:16)
[2018-10-13] MEDS: TIMOLOL 0.5% OPHTHALMIC SOL 5 ML BOTTLE OU SCH (10:44)
--- NOTE | 2018-10-13 11:47 | EKG ---
Test Reason : Blood Pressure : / mmHG Vent. Rate : 086 BPM Atrial Rate : 086 BPM P-R Int : 128 ms QRS Dur : 086 ms QT Int : 396 ms P-R-T Axes : 013 004 093 degrees QTc Int : 473 ms SINUS RHYTHM WITH PREMATURE ATRIAL COMPLEXES WITH ABERRANT CONDUCTION POSSIBLE LEFT ATRIAL ENLARGEMENT LEFT VENTRICULAR HYPERTROPHY NONSPECIFIC T WAVE ABNORMALITY PROLONGED QT ABNORMAL ECG WHEN COMPARED WITH ECG OF 13-OCT-2018 00:45, ST NO LONGER DEPRESSED IN INFERIOR LEADS NONSPECIFIC T WAVE ABNORMALITY NOW EVIDENT IN INFERIOR LEADS T WAVE INVERSION NOW EVIDENT IN ANTERIOR LEADS Confirmed by MARELY FLORES MD ([id number]) on 10/13/2018 11:47:32 AM Referred By: Confirmed By:MARLEY FLORES MD
--- NOTE | 2018-10-13 11:50 | PN ---
Physical Exam: SUBJECTIVE: Patient seen and examined; sleeping when I entered room. difficult to arouse. OBJECTIVE: Vital Signs Period Temp Pulse Resp BP Sys/Lewis Pulse Ox Last 24 Hr 98.3 F 79-93 14-22 163-168/95-102 98-100 GENERAL: The patient is lethargic NECK: Trachea midline, full range of motion, supple. LUNGS: Breath sounds equal, clear to auscultation bilaterally, no wheezes, no crackles, no accessory muscle use. HEART: Regular rate and rhythm, S1, S2 without murmur, rub or gallop. ABDOMEN: Soft, nontender, nondistended, normoactive bowel sounds, no guarding, no rebound, no hepatosplenomegaly, no masses. EXTREMITIES: 2+ pulses, warm, well-perfused, no edema. Laboratory Results - last 24 hr 10/13/18 10/13/18 10/13/18 00:14 00:14 00:45 WBC 8.8 Cancelled Corrected WBC (auto) Cancelled RBC 5.35 H Cancelled Hgb 13.3 Cancelled Hct 42.1 Cancelled MCV 78.7 L Cancelled MCH 24.8 L Cancelled MCHC 31.5 L Cancelled RDW 18.2 H Cancelled Plt Count 282 D Cancelled MPV 8.6 Cancelled Absolute Neuts (auto) Cancelled Absolute Lymphs (auto) Cancelled Absolute Monos (auto) Cancelled Absolute Eos (auto) Cancelled Absolute Basos (auto) Cancelled Add Manual Diff Cancelled Neutrophils % Cancelled Lymphocytes % Cancelled Monocytes % Cancelled Eosinophils % Cancelled Basophils % Cancelled Nucleated RBC % Cancelled Platelet Estimate Cancelled Platelet Comment Cancelled Normal RBC Morphology Cancelled PT with INR INR PTT (Actin FS) Sodium 140 Potassium 4.1 Chloride 108 H Carbon Dioxide 23 Anion Gap 9 BUN 19 H Creatinine 0.8 Creat Clearance w eGFR 73.93 Random Glucose 102 Lactic Acid Calcium 9.2 Phosphorus Magnesium Total Bilirubin 0.3 AST 14 L ALT 16 Alkaline Phosphatase 89 Creatine Kinase Creatine Kinase Index CK-MB (CK-2) Troponin I Total Protein 7.5 Albumin 3.6 TSH Oxcarbazepine 10/13/18 10/13/18 10/13/18 00:45 00:45 06:17 WBC Corrected WBC (auto) RBC Hgb Hct MCV MCH MCHC RDW Plt Count MPV Absolute Neuts (auto) Absolute Lymphs (auto) Absolute Monos (auto) Absolute Eos (auto) Absolute Basos (auto) Add Manual Diff Neutrophils % Lymphocytes % Monocytes % Eosinophils % Basophils % Nucleated RBC % Platelet Estimate Platelet Comment Normal RBC Morphology PT with INR INR PTT (Actin FS) Sodium Cancelled 143 Potassium Cancelled 3.8 Chloride Cancelled 109 H Carbon Dioxide Cancelled 23 Anion Gap Cancelled 11 BUN Cancelled 16 Creatinine Cancelled 0.9 Creat Clearance w eGFR Cancelled 64.54 Random Glucose Cancelled 91 Lactic Acid Calcium Cancelled 8.7 Phosphorus 3.7 Magnesium 2.2 Total Bilirubin Cancelled 0.3 AST Cancelled 16 ALT Cancelled 15 Alkaline Phosphatase Cancelled 80 Creatine Kinase 292 H Creatine Kinase Index 0.5 CK-MB (CK-2) 1.5 Troponin I 0.03 Total Protein Cancelled 6.8 Albumin Cancelled 3.4 TSH 0.39 Oxcarbazepine Cancelled 10/13/18 10/13/18 10/13/18 06:17 08:25 08:25 WBC 9.7 Corrected WBC (auto) RBC 5.28 H Hgb 12.9 Hct 40.0 MCV 75.6 L MCH 24.4 L MCHC 32.3 RDW 18.3 H Plt Count 338 MPV 8.4 Absolute Neuts (auto) 7.2 Absolute Lymphs (auto) Absolute Monos (auto) Absolute Eos (auto) Absolute Basos (auto) Add Manual Diff Neutrophils % 74.2 Lymphocytes % 17.4 Monocytes % 7.9 D Eosinophils % 0.1 Basophils % 0.4 Nucleated RBC % 0 Platelet Estimate Platelet Comment Normal RBC Morphology PT with INR 12.30 INR 1.04 PTT (Actin FS) 37.3 H Sodium Potassium Chloride Carbon Dioxide Anion Gap BUN Creatinine Creat Clearance w eGFR Random Glucose Lactic Acid 0.6 Calcium Phosphorus Magnesium Total Bilirubin AST ALT Alkaline Phosphatase Creatine Kinase Creatine Kinase Index CK-MB (CK-2) Troponin I Total Protein Albumin TSH Oxcarbazepine Active Medications Generic Name Dose Route Start Last Admin Trade Name Freq PRN Reason Stop Dose Admin Heparin Sodium (Porcine) 5,000 unit 10/13/18 06:00 10/13/18 06:06 Heparin - SQ 5,000 unit TID JOSEF Administration Hydrochlorothiazide 25 mg 10/13/18 10:00 10/13/18 10:43 Hctz - PO 25 mg DAILY JOSEF Administration Sodium Chloride 1,000 mls @ 83 mls/hr 10/13/18 03:15 10/13/18 03:31 Normal Saline - IV 83 mls/hr ASDIR JOSEF Administration Lorazepam 1 mg 10/13/18 03:14 Ativan Injection - IM Q6H PRN SHIVERING Metoprolol Tartrate 50 mg 10/13/18 10:00 10/13/18 10:42 Lopressor - PO 50 mg BID JOSEF Administration Nifedipine 60 mg 10/13/18 10:00 10/13/18 10:42 Procardia Xl - PO 60 mg DAILY JOSEF Administration Oxcarbazepine 200 mg 10/13/18 10:30 10/13/18 10:43 Trileptal PO 200 mg BID JOSEF Administration Timolol Maleate 1 drop 10/13/18 10:00 10/13/18 10:44 Timoptic 0.5% OU 1 drop DAILY JOSEF Administration ASSESSMENT/PLAN: This is a 58 year old female HTN, HLD, 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 #Epilepsy: -seen by neurology ; increased home trileptal to 200mg bid -eeg #HTN: -cont HCTZ; procardia xl Diet when not lethargoc VTE ppl; heparin sq Visit type - Emergency Visit Emergency Visit: Yes ED Registration Date: 10/13/18 Care time: The patient presented to the Emergency Department on the above date and was hospitalized for further evaluation of their emergent condition. - New Patient This patient is new to me today: Yes Date on this admission: 10/13/18 - Critical Care Critical Care patient: No
--- NOTE | 2018-10-13 11:51 | EKG ---
Test Reason : Blood Pressure : / mmHG Vent. Rate : 103 BPM Atrial Rate : 103 BPM P-R Int : 162 ms QRS Dur : 078 ms QT Int : 376 ms P-R-T Axes : 055 006 067 degrees QTc Int : 492 ms POOR DATA QUALITY, INTERPRETATION MAY BE ADVERSELY AFFECTED SINUS TACHYCARDIA WITH PREMATURE ATRIAL COMPLEXES WITH ABERRANT CONDUCTION MINIMAL VOLTAGE CRITERIA FOR LVH, MAY BE NORMAL VARIANT BORDERLINE ECG WHEN COMPARED WITH ECG OF 01-APR-2018 17:12, ABERRANT CONDUCTION IS NOW PRESENT Confirmed by MARLEY FLORES MD ([id number]) on 10/13/2018 11:50:58 AM Referred By: Confirmed By:MARLEY FLORES MD
--- NOTE | 2018-10-13 13:02 | PN ---
Teaching Attending Note Name of Resident: Teresita Benedict ATTENDING PHYSICIAN STATEMENT I saw and evaluated the patient. I reviewed the resident's note and discussed the case with the resident. I agree with the resident's findings and plan as documented with exceptions below. SUBJECTIVE: patient seen and examined, sleepy but arousable, minimal responses, though mostly appropriate. OBJECTIVE: Vital Signs Period Temp Pulse Resp BP Sys/Lewis Pulse Ox Last 24 Hr 98.3 F 79-93 14-22 163-168/95-102 98-100 Intake & Output 10/10/18 10/11/18 10/12/18 10/13/18 23:59 23:59 23:59 23:59 Intake Total 770 Balance 770 Weight 280 lb General: lethargic but arousable in bed Neuro: lethargic, arousable, minimal 1 word responses, withdraws all extremities symmetrically to pain, facial symmetry, PERRL, further exam limited due to lack of co-operation Chest: Decreased effort, no rales or wheezing Extremities: no edema Home Medications Medication Instructions Recorded Aspirin [ASA -] 81 mg PO DAILY 12/29/15 Metoprolol Tartrate [Lopressor -] 50 mg PO BID #60 tab 10/26/17 Nifedipine [Procardia Xl] 60 mg PO DAILY #30 tab 10/26/17 Oxcarbazepine 150 mg PO BID #60 tablet 10/26/17 Timolol 0.5% [Timoptic 0.5%] 1 drop OU DAILY #1 bottle 10/26/17 Hydrochlorothiazide [Hctz -] 25 mg PO DAILY 08/09/18 Active Medications Heparin Sodium (Porcine) (Heparin -) 5,000 unit SQ TID [facility] Last Admin: 10/13/18 06:06 Dose: 5,000 unit Hydrochlorothiazide (Hctz -) 25 mg PO DAILY [facility] Last Admin: 10/13/18 10:43 Dose: 25 mg Sodium Chloride (Normal Saline -) 1,000 mls @ 83 mls/hr IV ASDIR [facility] Last Admin: 10/13/18 03:31 Dose: 83 mls/hr Lorazepam (Ativan Injection -) 1 mg IM Q6H PRN PRN Reason: SHIVERING Metoprolol Tartrate (Lopressor -) 50 mg PO BID [facility] Last Admin: 10/13/18 10:42 Dose: 50 mg Nifedipine (Procardia Xl -) 60 mg PO DAILY [facility] Last Admin: 10/13/18 10:42 Dose: 60 mg Oxcarbazepine (Trileptal) 200 mg PO BID [facility] Last Admin: 10/13/18 10:43 Dose: 200 mg Timolol Maleate (Timoptic 0.5%) 1 drop OU DAILY [facility] Last Admin: 10/13/18 10:44 Dose: 1 drop Laboratory Results - last 24 hr 10/13/18 10/13/18 10/13/18 00:14 00:14 00:45 WBC 8.8 Cancelled Corrected WBC (auto) Cancelled RBC 5.35 H Cancelled Hgb 13.3 Cancelled Hct 42.1 Cancelled MCV 78.7 L Cancelled MCH 24.8 L Cancelled MCHC 31.5 L Cancelled RDW 18.2 H Cancelled Plt Count 282 D Cancelled MPV 8.6 Cancelled Absolute Neuts (auto) Cancelled Absolute Lymphs (auto) Cancelled Absolute Monos (auto) Cancelled Absolute Eos (auto) Cancelled Absolute Basos (auto) Cancelled Add Manual Diff Cancelled Neutrophils % Cancelled Lymphocytes % Cancelled Monocytes % Cancelled Eosinophils % Cancelled Basophils % Cancelled Nucleated RBC % Cancelled Platelet Estimate Cancelled Platelet Comment Cancelled Normal RBC Morphology Cancelled PT with INR INR PTT (Actin FS) Sodium 140 Potassium 4.1 Chloride 108 H Carbon Dioxide 23 Anion Gap 9 BUN 19 H Creatinine 0.8 Creat Clearance w eGFR 73.93 Random Glucose 102 Lactic Acid Calcium 9.2 Phosphorus Magnesium Total Bilirubin 0.3 AST 14 L ALT 16 Alkaline Phosphatase 89 Creatine Kinase Creatine Kinase Index CK-MB (CK-2) Troponin I Total Protein 7.5 Albumin 3.6 TSH Oxcarbazepine 10/13/18 10/13/18 10/13/18 00:45 00:45 06:17 WBC Corrected WBC (auto) RBC Hgb Hct MCV MCH MCHC RDW Plt Count MPV Absolute Neuts (auto) Absolute Lymphs (auto) Absolute Monos (auto) Absolute Eos (auto) Absolute Basos (auto) Add Manual Diff Neutrophils % Lymphocytes % Monocytes % Eosinophils % Basophils % Nucleated RBC % Platelet Estimate Platelet Comment Normal RBC Morphology PT with INR INR PTT (Actin FS) Sodium Cancelled 143 Potassium Cancelled 3.8 Chloride Cancelled 109 H Carbon Dioxide Cancelled 23 Anion Gap Cancelled 11 BUN Cancelled 16 Creatinine Cancelled 0.9 Creat Clearance w eGFR Cancelled 64.54 Random Glucose Cancelled 91 Lactic Acid Calcium Cancelled 8.7 Phosphorus 3.7 Magnesium 2.2 Total Bilirubin Cancelled 0.3 AST Cancelled 16 ALT Cancelled 15 Alkaline Phosphatase Cancelled 80 Creatine Kinase 292 H Creatine Kinase Index 0.5 CK-MB (CK-2) 1.5 Troponin I 0.03 Total Protein Cancelled 6.8 Albumin Cancelled 3.4 TSH 0.39 Oxcarbazepine Cancelled 10/13/18 10/13/18 10/13/18 06:17 08:25 08:25 WBC 9.7 Corrected WBC (auto) RBC 5.28 H Hgb 12.9 Hct 40.0 MCV 75.6 L MCH 24.4 L MCHC 32.3 RDW 18.3 H Plt Count 338 MPV 8.4 Absolute Neuts (auto) 7.2 Absolute Lymphs (auto) Absolute Monos (auto) Absolute Eos (auto) Absolute Basos (auto) Add Manual Diff Neutrophils % 74.2 Lymphocytes % 17.4 Monocytes % 7.9 D Eosinophils % 0.1 Basophils % 0.4 Nucleated RBC % 0 Platelet Estimate Platelet Comment Normal RBC Morphology PT with INR 12.30 INR 1.04 PTT (Actin FS) 37.3 H Sodium Potassium Chloride Carbon Dioxide Anion Gap BUN Creatinine Creat Clearance w eGFR Random Glucose Lactic Acid 0.6 Calcium Phosphorus Magnesium Total Bilirubin AST ALT Alkaline Phosphatase Creatine Kinase Creatine Kinase Index CK-MB (CK-2) Troponin I Total Protein Albumin TSH Oxcarbazepine CT brain results reviewed ASSESSMENT AND PLAN: 58 yof with PMhx of R haemorrhagic stroke, complex partial seizure disorder due to the same, HTN, HLD admitted with witnessed seizure -Witnessed seizure -Encephalopathy, From above vs ativan vs post ictal -h/o right sided haemorrhagic stroke -HTN -HLD Plan: Seizure precautions. Neurology input noted. Carbamazepine increased to 200 mg BID. ?compliance, discuss with patient when more awake, follow up levels. EEG. MRI brain if fails to improve, however patient with known focus. Resume home nifedipine/metoprolol/HCTZ. Gentle hydration. Add D5 to fluids. PO as more awake DVTPPX heparin Dispo in 24 hours if improves and no further seizures. Plan discussed with nursing.
[2018-10-13] MEDS: LORazepam 2 MG/ML SDV VIAL IM PRN (13:20)
[2018-10-13] MEDS: DEXTROSE 5%-NORMAL SALINE 1,000 ML IV SCH (17:23)
[2018-10-13] MEDS: ACETAMINOPHEN 1000 MG/100 ML VIAL (NON FORMULARY) IVPB PRN (17:49)
[2018-10-13 19:07] LABS: URINE APPEARANCE CLEAR; URINE BILIRUBIN NEGATIVE (NEGATIVE); URINE COLOR YELLOW; URINE GLUCOSE (UA) NEGATIVE (NEGATIVE); URINE KETONE TRACE (NEGATIVE); URINE LEUK ESTERASE NEGATIVE (NEGATIVE); URINE NITRITE NEGATIVE (NEGATIVE); URINE PROTEIN TRACE (NEGATIVE); URINE UROBILINOGEN 0.2 mg/dL (0.2-1.0)
[2018-10-14] MEDS: HEPARIN NA (PORCINE) 5,000 UNITS/ML 1ML VIAL SQ SCH (05:09)
[2018-10-14] MEDS: ACETAMINOPHEN 1000 MG/100 ML VIAL (NON FORMULARY) IVPB PRN (05:09)
[2018-10-14] MEDS: DEXTROSE 5%-NORMAL SALINE 1,000 ML IV SCH ×2 (05:47→17:00)
[2018-10-14 06:59] LABS: BASO % 0.2 % (0-2.0); EOS % 0.4 % (0-4.5); HEMATOCRIT 39.5 % (32.4-45.2); LYMPH % 0.8 % (8-40); MCH 24.6 pg (25.7-33.7); MEAN CELL VOLUME 74.5 fl (80-96); MEAN PLT VOLUME 8.8 fl (7.5-11.1); MONO % 1.6 % (3.8-10.2); PLATELET COUNT 296 K/MM3 (134-434); RDW 17.7 % (11.6-15.6); WHITE BLOOD COUNT 20.9 K/mm3 (4.0-10.0)
[2018-10-14 07:34] LABS: ALBUMIN 2.8 g/dl (3.4-5.0); ALK PHOS 59 U/L (45-117); ANION GAP 10 MMOL/L (8-16); BILIRUBIN,TOTAL 0.6 mg/dL (0.2-1); BLOOD UREA NITROGEN 33 mg/dL (7-18); CALCIUM 8.4 mg/dL (8.5-10.1); CHLORIDE 107 mmol/L (98-107); CO2 23 mmol/L (21-32); CREATININE 2.4 mg/dL (0.55-1.3); GLUCOSE,RANDOM 102 mg/dL (74-106); POTASSIUM 3.6 mmol/L (3.5-5.1); SGOT/AST 28 U/L (15-37); SGPT/ALT 18 U/L (13-61); SODIUM 140 mmol/L (136-145); TOT PROT 5.8 g/dl (6.4-8.2)
--- NOTE | 2018-10-14 10:03 | PN ---
Progress Note (short form) - Note Progress Note: Neurology CHIEF COMPLAINT: seizure HISTORY OF PRESENT ILLNESS: 58 year old female with a significant past medical history of R sided hemorrhagic stroke with complex partial seizures as a result, HTN, HLD, who presented to the ED with complaints of reportedly seizure like episode that occured 1.5 hours prior to ED arrival. As per patient's family at bedside patient stated that she felt her seizure coming on. According to notes, family reported her legs were shaking. EMS reports giving 5 versed IV in the field. Seizures resolved at that time. Family reported no trauma, fevers, chills. Per med recon, she is on trileptal 150 mg BID. Was contacted by ER overnight and patient reportedly with seizure event in ED, reportedly given Ativan. CT head completed and without acute changes, labs reviewed. Advised trileptal level. Patient monitored overnight and no subsequent seizure. Contacted this AM by resident indicating patient more confused and with increased WBC and temp of 102. Advised spinal tap. Contacted Dr. Nickerson for fluroscopic guidance as patient obese and he was in agreement, appreciate his assistance in procedure. Recommended discussing with ID on any further tests to send out besides routine panel of CSF. EEG completed, awaiting report. Trileptal already increased to 200mg twice daily. Patient more awake with me, is confused and thinks she's in alcohol rehab but is maintaining attention. Under restraints at this time. Active Medications Acetaminophen (Ofirmev Injection -) 1,000 mg IVPB Q6H PRN PRN Reason: FEVER Last Admin: 10/14/18 05:09 Dose: 1,000 mg Dextrose/Sodium Chloride (D5-Ns -) 1,000 mls @ 83 mls/hr IV ASDIR [facility] Last Admin: 10/14/18 05:47 Dose: 83 mls/hr Lorazepam (Ativan Injection -) 1 mg IM Q6H PRN PRN Reason: SHIVERING Last Admin: 10/13/18 13:20 Dose: 1 mg Metoprolol Tartrate (Lopressor -) 50 mg PO BID [facility] Last Admin: 10/13/18 21:16 Dose: Not Given Nifedipine (Procardia Xl -) 60 mg PO DAILY [facility] Last Admin: 10/13/18 10:42 Dose: 60 mg Oxcarbazepine (Trileptal) 200 mg PO BID JOSEF Last Admin: 10/13/18 21:16 Dose: 200 mg Timolol Maleate (Timoptic 0.5%) 1 drop OU DAILY JOSEF Last Admin: 10/13/18 10:44 Dose: 1 drop PHYSICAL EXAMINATION Vital Signs Period Temp Pulse Resp BP Sys/Lewis Pulse Ox Last 24 Hr 98.4 F-103.3 F 101-125 18-20 96-132/45-81 93 GENERAL:lethargic and sleepy , follow simple commands , arousable , obese lady HEAD: NC/AT EYES: EOMI, MICA , sclera anicteric ENT: moist mucous membrane NECK: Supple, no JVD, obese LUNGS: CTA B/L, no crackles no wheezing no accessory muscle use. HEART: RRR, NSR, normal s1, s2, murmur no M/R/G ABDOMEN: Obese ,Soft, ND, NT, +BS 4 Q, no CVA Tenderness LOWER EXTREMITIES: no edema, +2DP pulse, NEUROLOGICAL: Awake, alert, but not oriented, moving all extremities, not aggresive, sensory intact, gait deferred CBCD WBC 20.9 K/mm3 (4.0-10.0) H 10/14/18 06:00 RBC 5.30 M/mm3 (3.60-5.2) H 10/14/18 06:00 Hgb 13.0 GM/dL (10.7-15.3) 10/14/18 06:00 Hct 39.5 % (32.4-45.2) 10/14/18 06:00 MCV 74.5 fl (80-96) L 10/14/18 06:00 MCHC 33.0 g/dl (32.0-36.0) 10/14/18 06:00 RDW 17.7 % (11.6-15.6) H 10/14/18 06:00 Plt Count 296 K/MM3 (134-434) 10/14/18 06:00 MPV 8.8 fl (7.5-11.1) 10/14/18 06:00 CMP Sodium 140 mmol/L (136-145) 10/14/18 06:00 Potassium 3.6 mmol/L (3.5-5.1) 10/14/18 06:00 Chloride 107 mmol/L (98-107) 10/14/18 06:00 Carbon Dioxide 23 mmol/L (21-32) 10/14/18 06:00 Anion Gap 10 MMOL/L (8-16) 10/14/18 06:00 BUN 33 mg/dL (7-18) H 10/14/18 06:00 Creatinine 2.4 mg/dL (0.55-1.3) H 10/14/18 06:00 Creat Clearance w eGFR 20.81 (>60) 10/14/18 06:00 Random Glucose 102 mg/dL (74-106) 10/14/18 06:00 Calcium 8.4 mg/dL (8.5-10.1) L 10/14/18 06:00 Total Bilirubin 0.6 mg/dL (0.2-1) 10/14/18 06:00 AST 28 U/L (15-37) 10/14/18 06:00 ALT 18 U/L (13-61) 10/14/18 06:00 Alkaline Phosphatase 59 U/L (45-117) 10/14/18 06:00 Total Protein 5.8 g/dl (6.4-8.2) L 10/14/18 06:00 Albumin 2.8 g/dl (3.4-5.0) L 10/14/18 06:00 CARDIAC ENZYMES Creatine Kinase 292 U/L (26-192) H 10/13/18 06:17 Troponin I 0.03 ng/ml (0.00-0.05) 10/13/18 06:17 ASSESSMENT/PLAN: 58 year old female with a significant past medical history of R sided hemorrhagic stroke with complex partial seizures as a result, HTN, HLD, who presented to the ED with complaints of reportedly seizure like episode that occured 1.5 hours prior to ED arrival. As per patient's family at bedside patient stated that she felt her seizure coming on. According to notes, family reported her legs were shaking. EMS reports giving 5 versed IV in the field. Seizures resolved at that time. Family reported no trauma, fevers, chills. Per med recon, she is on trileptal 150 mg BID. Was contacted by ER overnight and patient reportedly with seizure event in ED, reportedly given Ativan. CT head completed and without acute changes, labs reviewed. Advised trileptal level. Patient monitored overnight and no subsequent seizure. Contacted this AM by resident indicating patient more confused and with increased WBC and temp of 102. Advised spinal tap. Contacted Dr. Nickerson for fluroscopic guidance as patient obese and he was in agreement, appreciate his assistance in procedure. Recommended discussing with ID on any further tests to send out besides routine panel of CSF. EEG completed, awaiting report. Trileptal already increased to 200mg twice daily. Patient more awake with me, is confused and thinks she's in alcohol rehab but is maintaining attention. Under restraints at this time. Follow up EEG results, seizure precautions. Adequate hydration recommended, prerenal on labs, BUN/CR further elevated this AM and can also be etiology of AMS. Monitor BP, maintain normotensive range, continue antiHTN medications. Follow up ID rec'd as increased WBC and fever indicate possibly infectious etiology. Will sign out Dr. Rolon's group who is covering this weekend.
[2018-10-14] MEDS ORDERED: PT OWN MED DRAWER 7, Y5N ONE ×4 (10:36→23:05)
[2018-10-14] MEDS: LORazepam 2 MG/ML SDV VIAL IM PRN (10:51)
[2018-10-14] MEDS: OXcarbazepine 300 MG/5 ML 250 ML BULK BOTTLE PO SCH ×2 (10:54→23:08)
--- NOTE | 2018-10-14 11:13 | PN ---
Progress Note (short form) - Note Progress Note: ID CONSULT DICTATED ALTERED MENTAL STATUS/ HIGH GRADE FEVER/ LEUKOCYTOSIS IN PT S/P SEIZURE. NOW WITH RAMYA. SEPSIS ? SOURCE AGREE WITH LP TO R/O SCAFFOLD SETTER INFECTION OBTAIN SPECIMEN FOR CELL COUNT/ CHEMISTRIES/ ROUTINE C/S, HSV I/II PCR INFLUENZA SWAB, HIV TEST CEFTRIAXONE/VANCOMYCIN/ ACV ADJUSTED FOR RENAL FAILURE
[2018-10-14] MEDS ORDERED: VANCOMYCIN 1 GM PREMIX - 1 GM/200 ML BAG IVPB ONE (11:16)
[2018-10-14] MEDS ORDERED: CEFTRIAXONE 2 GM in DEXTROSE 5%-WATER 100 ML IVPB ONE (11:16)
[2018-10-14 11:35] LABS: ANISOCYTOSIS 1+; MACROCYTOSIS 0; PLATELET ESTIMATE NORMAL; TOXIC GRANULATION 1+
[2018-10-14] MEDS: METOPROLOL TARTRATE 50 MG TABLET (FP) PO SCH (11:55)
[2018-10-14] MEDS: NIFEdipine E.R 60 MG TABLET (UD) PO SCH (11:55)
--- NOTE | 2018-10-14 11:59 | CONS ---
DATE OF CONSULTATION: DATE OF DICTATION: 10/14/2018 HISTORY: The patient is a 58-year-old female who was evaluated for sepsis. History was obtained from the chart as she cannot give a history secondary to her mental status. The patient has a history of a right hemorrhagic stroke and known seizure disorder. She was admitted to the hospital on October 12, 2018 after seizure activity. In the emergency room, the patient continued to have witnessed seizure activity. CAT scan of the head was negative for acute infarct or bleed. Her course was complicated by high-grade fever to 103 and confusion. The patient is now in acute renal failure. She is awaiting a spinal tap. She is awake but confused. She cannot give any additional history. No reports of shaking chills, labored breathing, cough, vomiting, diarrhea, grossly purulent urine, or infected skin wounds. PAST MEDICAL HISTORY: Positive for right hemorrhagic stroke, seizure disorder, hypertension, hyperlipidemia. ALLERGIES: DILANTIN and LEVETIRACETAM. MEDICATIONS: At present time include Tylenol, Ativan, Lopressor, Procardia, Trileptal. SOCIAL HISTORY: She resides in the community. Negative tobacco or alcohol use. Her HIV status is not documented. SYSTEMS REVIEW: Neurologic: As per HPI. Cardiac: Negative chest pain or palpitations. Respiratory: Negative cough or sputum production. Gastrointestinal: Negative vomiting or diarrhea. Genitourinary: Negative for urinary tract infection. LABORATORY DATA: White count 20.9 with 97 neutrophils, 1 monocyte, hematocrit 39.5, platelet count 296, BUN 33, creatinine 2.4. Liver enzymes normal. Urinalysis negative. CPK 292. Cultures are pending. Chest x-ray negative for acute infiltrate. PHYSICAL EXAMINATION: General: She is awake but confused. Vital Signs: Temperature 103.3, blood pressure 132/81, pulse 125, regular, respirations 19 per minute. HEENT: Sclerae anicteric. Oropharynx negative. Neck: Supple. Heart: Sounds S1, S2. Tachycardic. Lungs: Poor inspiratory effort. Grossly clear. Abdomen: Obese, soft, nontender. Extremities: Positive for edema. IMPRESSION: 1. Altered mental status. 2. High-grade fever. 3. Leukocytosis in a patient status post seizure now with acute renal failure. Suspect sepsis, unclear source. Agree with LP to rule out primary culture and sensitivity infection. Obtain specimen for cell count chemistries, routine culture, herpes simplex PCR. Obtain influenza swab and HIV test. Empiric antibiotic coverage with ceftriaxone, vancomycin, and acyclovir adjusted for renal failure. Droplet precautions pending spinal tap. Thank you for the kind referral. HORACIO QUINTERO M.D. [id number]
[2018-10-14] MEDS: TIMOLOL 0.5% OPHTHALMIC SOL 5 ML BOTTLE OU SCH (12:00)
[2018-10-14] MEDS ORDERED: LORazepam 2 MG/ML SDV VIAL IM ONE (12:40)
[2018-10-14] MEDS ORDERED: DEXTROSE 5%-WATER 100 ML IVPB ONE ×2 (13:35→20:05)
[2018-10-14] MEDS: ACYCLOVIR INJECTION 1,000 MG in DEXTROSE 5%-WATER - 250 ML IVPB SCH ×2 (14:28→23:09)
[2018-10-14 14:30] LABS: COCAINE, UR NEGATIVE ng/ml (CUTOFF=300); METHADONE, UR NEGATIVE ng/ml (CUTOFF=300); OPIATES, URI NEGATIVE ng/ml (CUTOFF=300); PHENCYCLIDINE,URINE NEGATIVE ng/ml (CUTOFF=25); URINE AMPHETAMINES NEGATIVE ng/ml (CUTOFF=500); URINE BARBITURATES NEGATIVE ng/ml (CUTOFF=200)
[2018-10-14 14:32] LABS: URINE BENZODIAZEPINES POSITIVE ng/ml (CUTOFF=200)
[2018-10-14 14:41] LABS: EPI CELLS 7.1 /HPF (0-5); URINE APPEARANCE TURBID; URINE BACTERIA 0.3 /hpf (NEGATIVE); URINE BILIRUBIN NEGATIVE (NEGATIVE); URINE CASTS 78 /hpf (0-8); URINE COLOR YELLOW; URINE GLUCOSE (UA) NEGATIVE (NEGATIVE); URINE KETONE TRACE (NEGATIVE); URINE LEUK ESTERASE NEGATIVE (NEGATIVE); URINE NITRITE NEGATIVE (NEGATIVE); URINE PROTEIN 1+ (NEGATIVE); URINE RBC 3 /hpf (0-4); URINE WBC 4 /hpf (0-5)
--- NOTE | 2018-10-14 14:53 | PN ---
Teaching Attending Note Name of Resident: Teresita Benedict ATTENDING PHYSICIAN STATEMENT I saw and evaluated the patient. I reviewed the resident's note and discussed the case with the resident. I agree with the resident's findings and plan as documented with exceptions below. SUBJECTIVE: Patient seen and examined, lethargic, confused, attempts to respond to few questions but intermittent incomprehensible speech, tangential conversations, unable to assess for ROS. OBJECTIVE: Vital Signs Period Temp Pulse Resp BP Sys/Lewis Pulse Ox Last 24 Hr 98.8 F-103.3 F 79-125 19-20 96-135/45-81 93 Intake & Output 10/11/18 10/12/18 10/13/18 10/14/18 23:59 23:59 23:59 23:59 Intake Total 1674 581 Balance 1674 581 Weight 280 lb 280 lb 2 oz General: lethargic,poor intermittent inappropriate responses, in bed Neuro: lethargic, lethargic, confused, attempts to respond to few questions but intermittent incomprehensible speech, tangential conversations, able to state is in the hospital, further interview limited, PERRL, facial symmetry, moves all extremities and withdraws to pain, unable to check for sensations, further exam limited Chest: decreased effort, no rales or wheezing Abdomen:Soft, obese, NT Extremities: no edema Home Medications Medication Instructions Recorded Aspirin [ASA -] 81 mg PO DAILY 12/29/15 Metoprolol Tartrate [Lopressor -] 50 mg PO BID #60 tab 10/26/17 Nifedipine [Procardia Xl] 60 mg PO DAILY #30 tab 10/26/17 Oxcarbazepine 150 mg PO BID #60 tablet 10/26/17 Timolol 0.5% [Timoptic 0.5%] 1 drop OU DAILY #1 bottle 10/26/17 Hydrochlorothiazide [Hctz -] 25 mg PO DAILY 08/09/18 Active Medications Acetaminophen (Ofirmev Injection -) 1,000 mg IVPB Q6H PRN PRN Reason: FEVER Last Admin: 10/14/18 05:09 Dose: 1,000 mg Acyclovir 1,000 mg/ Dextrose 270 mls @ 135 mls/hr IVPB Q12H JOSEF Last Admin: 10/14/18 14:28 Dose: 135 mls/hr Dextrose/Sodium Chloride (D5-Ns -) 1,000 mls @ 150 mls/hr IV ASDIR [facility] Metoprolol Tartrate (Lopressor -) 25 mg PO BID [facility] Oxcarbazepine (Trileptal) 200 mg PO BID [facility] Last Admin: 10/14/18 10:54 Dose: 200 mg Timolol Maleate (Timoptic 0.5%) 1 drop OU DAILY [facility] Last Admin: 10/14/18 12:00 Dose: Not Given Laboratory Results - last 24 hr 10/13/18 10/14/18 10/14/18 16:00 06:00 06:00 WBC 20.9 H RBC 5.30 H Hgb 13.0 Hct 39.5 MCV 74.5 L MCH 24.6 L MCHC 33.0 RDW 17.7 H Plt Count 296 MPV 8.8 Absolute Neuts (auto) 20.2 H Neutrophils % 97.0 H D Neutrophils % (Manual) 88.4 H Band Neutrophils % 8.7 Lymphocytes % 0.8 L Lymphocytes % (Manual) 0.0 L Monocytes % 1.6 L Monocytes % (Manual) 2 L Eosinophils % 0.4 D Eosinophils % (Manual) 1.0 Basophils % 0.2 Basophils % (Manual) 0.0 Myelocytes % (Man) 0 Promyelocytes % (Man) 0 Blast Cells % (Manual) 0 Nucleated RBC % 0 Metamyelocytes 0 Hypochromia 0 Toxic Granulation 1+ Platelet Estimate Normal Polychromasia 0 Poikilocytosis 0 Anisocytosis 1+ Microcytosis 1+ Macrocytosis 0 Sodium 140 Potassium 3.6 Chloride 107 Carbon Dioxide 23 Anion Gap 10 BUN 33 H Creatinine 2.4 H Creat Clearance w eGFR 20.81 Random Glucose 102 Calcium 8.4 L Total Bilirubin 0.6 AST 28 ALT 18 Alkaline Phosphatase 59 Creatine Kinase 1022 H Creatine Kinase Index 0.3 CK-MB (CK-2) 3.7 H Total Protein 5.8 L Albumin 2.8 L Urine Color Yellow Urine Appearance Clear Urine pH 5.0 Ur Specific [place] 1.012 Urine Protein Trace Urine Glucose (UA) Negative Urine Ketones Trace H Urine Blood Negative Urine Nitrite Negative Urine Bilirubin Negative Urine Urobilinogen 0.2 Ur Leukocyte Esterase Negative Urine WBC (Auto) Urine RBC (Auto) Urine Casts (Auto) U Pathogenic Cast Auto U Epithel Cells (Auto) U Sm Round Cell (Auto) Urine Crystals (Auto) Urine Bacteria (Auto) Ur Random Sodium Ur Random Chloride Urine Creatinine Opiates Screen Methadone Screen Barbiturate Screen Phencyclidine Screen Ur Amphetamines Screen MDMA (Ecstasy) Screen Benzodiazepines Screen Cocaine Screen U Marijuana (THC) Screen 10/14/18 10/14/18 10/14/18 13:20 13:20 13:20 WBC RBC Hgb Hct MCV MCH MCHC RDW Plt Count MPV Absolute Neuts (auto) Neutrophils % Neutrophils % (Manual) Band Neutrophils % Lymphocytes % Lymphocytes % (Manual) Monocytes % Monocytes % (Manual) Eosinophils % Eosinophils % (Manual) Basophils % Basophils % (Manual) Myelocytes % (Man) Promyelocytes % (Man) Blast Cells % (Manual) Nucleated RBC % Metamyelocytes Hypochromia Toxic Granulation Platelet Estimate Polychromasia Poikilocytosis Anisocytosis Microcytosis Macrocytosis Sodium Potassium Chloride Carbon Dioxide Anion Gap BUN Creatinine Creat Clearance w eGFR Random Glucose Calcium Total Bilirubin AST ALT Alkaline Phosphatase Creatine Kinase Creatine Kinase Index CK-MB (CK-2) Total Protein Albumin Urine Color Yellow Urine Appearance Turbid Urine pH 5.0 Ur Specific [place] 1.021 Urine Protein 1+ H Urine Glucose (UA) Negative Urine Ketones Trace H Urine Blood Negative Urine Nitrite Negative Urine Bilirubin Negative Urine Urobilinogen 1.0 Ur Leukocyte Esterase Negative Urine WBC (Auto) 4 Urine RBC (Auto) 3 Urine Casts (Auto) 78 U Pathogenic Cast Auto /z U Epithel Cells (Auto) 7.1 U Sm Round Cell (Auto) /z Urine Crystals (Auto) /z Urine Bacteria (Auto) 0.3 Ur Random Sodium < 18 L Ur Random Chloride 20 L Urine Creatinine 305.0 H Opiates Screen Negative Methadone Screen Negative Barbiturate Screen Negative Phencyclidine Screen Negative Ur Amphetamines Screen Negative MDMA (Ecstasy) Screen Negative Benzodiazepines Screen Positive A* Cocaine Screen Negative U Marijuana (THC) Screen Negative ASSESSMENT AND PLAN: 58 yof with PMhx of R haemorrhagic stroke, complex partial seizure disorder due to the same, HTN, HLD admitted with witnessed seizure -Sepsis, r/o meningitis vs encephalitis, aspiration -RAMYA, from hypovolumi/ATN from sepsis/poor oral intake, r/o obstructive process vs medication induced -Witnessed seizure -Encephalopathy, infection vs seizure vs post ictal vs from meds -H/o right sided haemorrhagic stroke -HTN -HLD Plan: Recurrent fevers, ua/ CXR non concerning. Blood cx sent. Ongoing AMS. ID input appreciated. Emperic Ceftriaxone/acyclovir/vancomycin IR guided LP CT chest/A/P if no clear focus. Discussed with Dr. Mcrae. Neuro checks. Seizure precautions. Carbamazepine 200mg BID as able. Alternate IV meds per neurology in case fails to tolerate PO. Follow up EEG Utox noted. Nephrology consult Dr. Avery. Aggressive IVF, while on acyclovir Urine studies. Renal/bladder US when able. Mojica placement. Renal dosing of meds. Neurology input noted. Carbamazepine increased to 200 mg BID. MRI brain if w/u non concerning, continues to be altered hold nifedipine/HCTZ. Decrease metoprolol, continue as hemodynamics permit. DVTPPX Hold heparin pending LP Currently sick with ongoing AMS, fevers and need for close monitoring, neurological assessment and IV antibiotics. Care co-ordinated with ID, neurology, IR and nursing. total patient care time spent including above 45 min.
[2018-10-14 15:22] LABS: URINE CRYSTALS NONE SEEN /hpf
--- NOTE | 2018-10-14 16:04 | CONSULT ---
Consult - text type - Consultation Consultation Note: Renal Consult for RAMYA This is a 58 year old woman with hx Right sided hemorrhagic stroke with complex partial seizures as a result, HTN, hyperlipidemia who presented from home with seizures and found to be febrile with RAMYA. Pt seen at the bedside. Is sleeping. Was given ativan earlier today for LP. LP not performed because pt was not cooperative. Pt has olivas in place with yellow urine. When catheter was placed no large volume urine output noted. BP has been stabe. + Fevers on presentation. Pt unable to provide history due to clinical status. PMhx: as above Allergies: as listed in EMR Family Hx: unable to obtain Social Hx: unable to obtain ROS: unable to obtain Home Medications Medication Instructions Recorded Aspirin [ASA -] 81 mg PO DAILY 12/29/15 Metoprolol Tartrate [Lopressor -] 50 mg PO BID #60 tab 10/26/17 Nifedipine [Procardia Xl] 60 mg PO DAILY #30 tab 10/26/17 Oxcarbazepine 150 mg PO BID #60 tablet 10/26/17 Timolol 0.5% [Timoptic 0.5%] 1 drop OU DAILY #1 bottle 10/26/17 Hydrochlorothiazide [Hctz -] 25 mg PO DAILY 08/09/18 Vital Signs Temperature 98.8 F 10/14/18 14:50 Pulse Rate 79 10/14/18 14:50 Respiratory Rate 20 10/14/18 14:50 Blood Pressure 135/66 10/14/18 14:50 O2 Sat by Pulse Oximetry (%) 100 10/14/18 09:00 Intake & Output 10/11/18 10/12/18 10/13/18 10/14/18 23:59 23:59 23:59 23:59 Intake Total 1674 581 Output Total 150 Balance 1674 431 Weight 127.006 kg 127.063 kg sleeping, Lethargic neck supple, no JVD RRR, no M/R CTA, no rales or wheeze soft NT/ND, Obese No LE edema, no cyanosis or clubbing Olivas in place CBC, BMP 10/14/18 06:00 10/14/18 06:00 Laboratory Tests 10/14/18 10/14/18 10/14/18 06:00 13:20 13:20 Calcium 8.4 L Urine Protein 1+ H Urine Ketones Trace H Urine Blood Negative Urine WBC (Auto) 4 Urine RBC (Auto) 3 Urine Casts (Auto) 78 U Pathogenic Cast Auto Coarse granular cast Ur Random Sodium < 18 L Ur Random Chloride 20 L Urine Creatinine 305.0 H Laboratory Tests 10/13/18 10/14/18 06:17 06:00 Creatine Kinase 292 H 1022 H Current Medications Acetaminophen (Ofirmev Injection -) 1,000 mg IVPB Q6H PRN PRN Reason: FEVER Last Admin: 10/14/18 05:09 Dose: 1,000 mg Acyclovir 1,000 mg/ Dextrose 270 mls @ 135 mls/hr IVPB Q12H JOSEF Last Admin: 10/14/18 14:28 Dose: 135 mls/hr Dextrose/Sodium Chloride (D5-Ns -) 1,000 mls @ 150 mls/hr IV ASDIR JOSEF Metoprolol Tartrate (Lopressor -) 25 mg PO BID JOSEF Oxcarbazepine (Trileptal) 200 mg PO BID JOSEF Last Admin: 10/14/18 10:54 Dose: 200 mg Timolol Maleate (Timoptic 0.5%) 1 drop OU DAILY JOSEF Last Admin: 10/14/18 12:00 Dose: Not Given 58 year old woman with hx of Right sided hemorrhagic stroke with complex partial seizures as a result, HTN, hyperlipidemia who presented from home with seizures and found to be febrile with RAMYA. #Seizures #Fevers/Sepsis syndrome #RAMYA (normal baseline renal function) #Hx of CVA Differential for RAMYA (sepsis related renal hypoprofusion vs. ATN vs Pigment injury from rhabdo vs. acute GN) urine studies show low urine Na indicating preserved tubular function Multiple granular casts seen in urine (could be from seizure related rhabdo vs. ATN or from urinary concentration from low voluem state Check UPCR Trend Serum CK levels continue aggressive IVF hydration with isotonic saline (will need IV hydration for duration of IV acyclovir) Would repeat UA in 24 hours keep MAP > 65 Dose all meds for CrCl < 15 avoid IV contrast and nephrotoxins if possible Neurology and ID follow up Thank you Will follow Varun Avery DO
--- NOTE | 2018-10-14 16:35 | PN ---
Physical Exam: SUBJECTIVE: Patient seen and examined ; as per nurse patient chewed thru the telemetry wires, wanting to get our of bed, hallucinating, talking something that not there, still with fevers 102-103. White count 20,000. OBJECTIVE: Vital Signs Period Temp Pulse Resp BP Sys/Lewis Pulse Ox Last 24 Hr 98.8 F-103.3 F 79-125 19-20 96-135/45-81 93-100 GENERAL: The patient is obese,somewhat awake; not making any sens ; cannot follow commands; as per daughter she has a normal; nuero baseline HEAD: Normal with no signs of trauma. LUNGS: Breath sounds equal, clear to auscultation bilaterally, no wheezes, no crackles, no accessory muscle use. HEART: Regular rate and rhythm, S1, S2 without murmur, rub or gallop. ABDOMEN: Soft, nontender, nondistended, normoactive bowel sounds, no guarding, no rebound, no hepatosplenomegaly, no masses. EXTREMITIES: 2+ pulses, warm, well-perfused, no edema. NEUROLOGICAL:altered; not following commands PSYCH: hallucinating; SKIN: Warm, dry, normal turgor, no rashes or lesions noted Was not able to fully examine; patient was grabbing at me. Laboratory Results - last 24 hr 10/13/18 10/14/18 10/14/18 16:00 06:00 06:00 WBC 20.9 H RBC 5.30 H Hgb 13.0 Hct 39.5 MCV 74.5 L MCH 24.6 L MCHC 33.0 RDW 17.7 H Plt Count 296 MPV 8.8 Absolute Neuts (auto) 20.2 H Neutrophils % 97.0 H D Neutrophils % (Manual) 88.4 H Band Neutrophils % 8.7 Lymphocytes % 0.8 L Lymphocytes % (Manual) 0.0 L Monocytes % 1.6 L Monocytes % (Manual) 2 L Eosinophils % 0.4 D Eosinophils % (Manual) 1.0 Basophils % 0.2 Basophils % (Manual) 0.0 Myelocytes % (Man) 0 Promyelocytes % (Man) 0 Blast Cells % (Manual) 0 Nucleated RBC % 0 Metamyelocytes 0 Hypochromia 0 Toxic Granulation 1+ Platelet Estimate Normal Polychromasia 0 Poikilocytosis 0 Anisocytosis 1+ Microcytosis 1+ Macrocytosis 0 Sodium 140 Potassium 3.6 Chloride 107 Carbon Dioxide 23 Anion Gap 10 BUN 33 H Creatinine 2.4 H Creat Clearance w eGFR 20.81 Random Glucose 102 Calcium 8.4 L Total Bilirubin 0.6 AST 28 ALT 18 Alkaline Phosphatase 59 Creatine Kinase 1022 H Creatine Kinase Index 0.3 CK-MB (CK-2) 3.7 H Total Protein 5.8 L Albumin 2.8 L Urine Color Yellow Urine Appearance Clear Urine pH 5.0 Ur Specific [place] 1.012 Urine Protein Trace Urine Glucose (UA) Negative Urine Ketones Trace H Urine Blood Negative Urine Nitrite Negative Urine Bilirubin Negative Urine Urobilinogen 0.2 Ur Leukocyte Esterase Negative Urine WBC (Auto) Urine RBC (Auto) Urine Casts (Auto) U Pathogenic Cast Auto U Epithel Cells (Auto) U Sm Round Cell (Auto) Urine Crystals (Auto) Urine Bacteria (Auto) Ur Random Sodium Ur Random Chloride Urine Creatinine Opiates Screen Methadone Screen Barbiturate Screen Phencyclidine Screen Ur Amphetamines Screen MDMA (Ecstasy) Screen Benzodiazepines Screen Cocaine Screen U Marijuana (THC) Screen Influenza A (Rapid) Influenza B (Rapid) 10/14/18 10/14/18 10/14/18 13:20 13:20 13:20 WBC RBC Hgb Hct MCV MCH MCHC RDW Plt Count MPV Absolute Neuts (auto) Neutrophils % Neutrophils % (Manual) Band Neutrophils % Lymphocytes % Lymphocytes % (Manual) Monocytes % Monocytes % (Manual) Eosinophils % Eosinophils % (Manual) Basophils % Basophils % (Manual) Myelocytes % (Man) Promyelocytes % (Man) Blast Cells % (Manual) Nucleated RBC % Metamyelocytes Hypochromia Toxic Granulation Platelet Estimate Polychromasia Poikilocytosis Anisocytosis Microcytosis Macrocytosis Sodium Potassium Chloride Carbon Dioxide Anion Gap BUN Creatinine Creat Clearance w eGFR Random Glucose Calcium Total Bilirubin AST ALT Alkaline Phosphatase Creatine Kinase Creatine Kinase Index CK-MB (CK-2) Total Protein Albumin Urine Color Urine Appearance Urine pH Ur Specific [place] Urine Protein Urine Glucose (UA) Urine Ketones Urine Blood Urine Nitrite Urine Bilirubin Urine Urobilinogen Ur Leukocyte Esterase Urine WBC (Auto) Urine RBC (Auto) Urine Casts (Auto) U Pathogenic Cast Auto U Epithel Cells (Auto) U Sm Round Cell (Auto) Urine Crystals (Auto) Urine Bacteria (Auto) Ur Random Sodium < 18 L Ur Random Chloride 20 L Urine Creatinine 305.0 H Opiates Screen Negative Methadone Screen Negative Barbiturate Screen Negative Phencyclidine Screen Negative Ur Amphetamines Screen Negative MDMA (Ecstasy) Screen Negative Benzodiazepines Screen Positive A* Cocaine Screen Negative U Marijuana (THC) Screen Negative Influenza A (Rapid) Negative Influenza B (Rapid) Negative 10/14/18 13:20 WBC RBC Hgb Hct MCV MCH MCHC RDW Plt Count MPV Absolute Neuts (auto) Neutrophils % Neutrophils % (Manual) Band Neutrophils % Lymphocytes % Lymphocytes % (Manual) Monocytes % Monocytes % (Manual) Eosinophils % Eosinophils % (Manual) Basophils % Basophils % (Manual) Myelocytes % (Man) Promyelocytes % (Man) Blast Cells % (Manual) Nucleated RBC % Metamyelocytes Hypochromia Toxic Granulation Platelet Estimate Polychromasia Poikilocytosis Anisocytosis Microcytosis Macrocytosis Sodium Potassium Chloride Carbon Dioxide Anion Gap BUN Creatinine Creat Clearance w eGFR Random Glucose Calcium Total Bilirubin AST ALT Alkaline Phosphatase Creatine Kinase Creatine Kinase Index CK-MB (CK-2) Total Protein Albumin Urine Color Yellow Urine Appearance Turbid Urine pH 5.0 Ur Specific [place] 1.021 Urine Protein 1+ H Urine Glucose (UA) Negative Urine Ketones Trace H Urine Blood Negative Urine Nitrite Negative Urine Bilirubin Negative Urine Urobilinogen 1.0 Ur Leukocyte Esterase Negative Urine WBC (Auto) 4 Urine RBC (Auto) 3 Urine Casts (Auto) 78 U Pathogenic Cast Auto Coarse granular cast U Epithel Cells (Auto) 7.1 U Sm Round Cell (Auto) None seen Urine Crystals (Auto) None seen Urine Bacteria (Auto) 0.3 Ur Random Sodium Ur Random Chloride Urine Creatinine Opiates Screen Methadone Screen Barbiturate Screen Phencyclidine Screen Ur Amphetamines Screen MDMA (Ecstasy) Screen Benzodiazepines Screen Cocaine Screen U Marijuana (THC) Screen Influenza A (Rapid) Influenza B (Rapid) Active Medications Generic Name Dose Route Start Last Admin Trade Name Freq PRN Reason Stop Dose Admin Acetaminophen 1,000 mg 10/13/18 17:11 10/14/18 05:09 Ofirmev Injection - IVPB 1,000 mg Q6H PRN Administration FEVER Acyclovir 1,000 mg/ Dextrose 270 mls @ 135 mls/hr 10/14/18 11:30 10/14/18 14: 28 IVPB 135 mls/hr Q12H JOSEF Administration Dextrose/Sodium Chloride 1,000 mls @ 150 mls/hr 10/14/18 14:45 D5-Ns - IV ASDIR JOSEF Metoprolol Tartrate 25 mg 10/14/18 14:46 Lopressor - PO BID JOSEF Oxcarbazepine 200 mg 10/13/18 10:30 10/14/18 10:54 Trileptal PO 200 mg BID JOSEF Administration Timolol Maleate 1 drop 10/13/18 10:00 10/14/18 12:00 Timoptic 0.5% OU Not Given DAILY JOSEF ASSESSMENT/PLAN: This is a 58 year old female HTN, HLD, 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 Has not returned to baseline since admission. Running temps 102-103. #Severe Sepsis; etiology currently unknown -started on empiric antibiotics for meningitis and HSV -IV ceftriaxine 2mg bid, vancomycin titrated to CrCL <15 -ct chest, abdomen/pelvis -FOR LP today by IR although patient was not cooperative -eeg reading pending -neuro /ID recs #Acute kidney injury -normal cr baseline -cr 2.4 today -IVF hydration -urine lytes, prot/cr ratio; US -renal recs #Epilepsy: -seen by neurology ; increased home trileptal to 200mg bid -eeg #HTN: -cont HCTZ; procardia xl Diet when not lethargic VTE ppl; heparin sq GI ppl : protonix Disposition: tele Visit type - Emergency Visit Emergency Visit: Yes ED Registration Date: 10/13/18 Care time: The patient presented to the Emergency Department on the above date and was hospitalized for further evaluation of their emergent condition. - New Patient This patient is new to me today: No - Critical Care Critical Care patient: No
[2018-10-14] MEDS ORDERED: CEFTRIAXONE 2 GM-D5W BAG 2 GM/50 ML BAG IVPB SCH (18:15)
[2018-10-14] MEDS: CEFTRIAXONE 2 GM in DEXTROSE 5%-WATER 100 ML IVPB SCH (20:14)
[2018-10-14] MEDS: METOPROLOL TARTRATE 25 MG TABLET (FP) PO SCH (23:08)
[2018-10-15] MEDS: DEXTROSE 5%-NORMAL SALINE 1,000 ML IV SCH ×2 (01:51→18:59)
[2018-10-15] MEDS: ACETAMINOPHEN 1000 MG/100 ML VIAL (NON FORMULARY) IVPB PRN (02:24)
[2018-10-15] MEDS ORDERED: DEXTROSE 5%-WATER 100 ML IVPB ONE ×2 (05:35→18:55)
[2018-10-15] MEDS: CEFTRIAXONE 2 GM in DEXTROSE 5%-WATER 100 ML IVPB SCH ×2 (05:41→18:59)
[2018-10-15 08:31] LABS: BASO % 0.4 % (0-2.0); EOS % 2.8 % (0-4.5); HEMATOCRIT 37.2 % (32.4-45.2); LYMPH % 3.3 % (8-40); MCH 24.2 pg (25.7-33.7); MCHC 32.2 g/dl (32.0-36.0); MEAN CELL VOLUME 75.2 fl (80-96); MEAN PLT VOLUME 9.2 fl (7.5-11.1); MONO % 3.9 % (3.8-10.2); NEUT % 89.6 % (42.8-82.8); PLATELET COUNT 219 K/MM3 (134-434); RBC 4.94 M/mm3 (3.60-5.2); RDW 17.9 % (11.6-15.6); WHITE BLOOD COUNT 8.3 K/mm3 (4.0-10.0)
[2018-10-15 08:34] LABS: ALBUMIN 2.6 g/dl (3.4-5.0); ALK PHOS 56 U/L (45-117); ANION GAP 9 MMOL/L (8-16); BILIRUBIN,TOTAL 0.2 mg/dL (0.2-1); BLOOD UREA NITROGEN 42 mg/dL (7-18); CALCIUM 7.9 mg/dL (8.5-10.1); CHLORIDE 108 mmol/L (98-107); CO2 23 mmol/L (21-32); CREATININE 2.3 mg/dL (0.55-1.3); GLUCOSE,RANDOM 112 mg/dL (74-106); MAGNESIUM 2.1 mg/dL (1.8-2.4); PHOSPHOROUS 3.2 mg/dL (2.5-4.9); POTASSIUM 3.6 mmol/L (3.5-5.1); SGOT/AST 36 U/L (15-37); SGPT/ALT 25 U/L (13-61); SODIUM 140 mmol/L (136-145); TOT PROT 5.6 g/dl (6.4-8.2)
[2018-10-15] MEDS ORDERED: CEFTRIAXONE 2 GM in DEXTROSE 5%-WATER 100 ML IVPB SCH (10:00)
--- NOTE | 2018-10-15 10:17 | PN ---
Progress Note (short form) - Note Progress Note: sleeping but easily arousable denies headache or neck pain oriented to name, june, LP unsuccessful yesterday due to agitation empiric acyclovir, rocephin and vancomycin started Vital Signs Period Temp Pulse Resp BP Sys/Lewis Pulse Ox Last 24 Hr 98.7 F-101.0 F 79-117 18-20 135-162/66-118 93 no nuchal rigidity yaneli vest cor-rrr lungs clear abd soft,nt ext no edema +olivas CBC, BMP 10/15/18 06:00 10/15/18 06:00 Microbiology 10/13/18 16:00 Urine - Urine - Catheterized Urine Culture - Final NO GROWTH OBTAINED 10/13/18 20:15 Blood - Peripheral Venous Blood Culture - Preliminary NO GROWTH OBTAINED AFTER 24 HOURS, INCUBATION TO CONTINUE FOR 4 DAYS. 10/13/18 18:30 Blood - Peripheral Venous Blood Culture - Preliminary NO GROWTH OBTAINED AFTER 24 HOURS, INCUBATION TO CONTINUE FOR 4 DAYS. a/p fevers resolved leukocytosis resolved awake but somewhat confused- not sure what baseline is- await neurology and hospitalist f/u continue rocephin/acyclovir await LP darwin elevated cpk history seizures history of CVA continue aggressive if hydration while on acyclovir
[2018-10-15] MEDS: TIMOLOL 0.5% OPHTHALMIC SOL 5 ML BOTTLE OU SCH (10:35)
[2018-10-15] MEDS: METOPROLOL TARTRATE 25 MG TABLET (FP) PO SCH ×2 (10:35→23:06)
[2018-10-15] MEDS: OXcarbazepine 300 MG/5 ML 250 ML BULK BOTTLE PO SCH ×2 (10:36→23:07)
--- NOTE | 2018-10-15 11:02 | PN ---
Physical Exam: SUBJECTIVE: Patient seen and examined, much more awake and conversant today. Denies any pain. Knows is in the hospital but thought was [facility], states came with seizure and takes medicines regularly that "Dr. Mcrae gives me" knows is September, hungry asking to eat. Denies any neck pain, photophobia, abdominal pain, dyspnea or urinary symptoms. OBJECTIVE: Vital Signs Period Temp Pulse Resp BP Sys/Lewis Pulse Ox Last 24 Hr 98.7 F-101.0 F 79-117 18-20 135-162/66-118 93 Intake & Output 10/12/18 10/13/18 10/14/18 10/15/18 23:59 23:59 23:59 23:59 Intake Total 1674 2653 1500 Output Total 750 Balance 1674 1903 1500 Weight 280 lb 280 lb 2 oz GENERAL: The patient is awake, alert, oriented to self, thought was [facility] knows is September but unable to state the year, much more awake and conversant today, in no acute distress. HEAD: Normal with no signs of trauma. EYES: mild left eye conjunctival erythema with crusting ENT: Ears normal, nares patent, oropharynx clear without exudates, moist mucous membranes. NECK: Trachea midline, full range of motion, supple. LUNGS:decreased effort, no rales or wheezing appreciated HEART: Regular rate and rhythm, S1, S2 ABDOMEN: Soft, obese, nontender, nondistended, normoactive bowel sounds, no guarding, no rebound, no CVA or suprapubic tenderness EXTREMITIES: 2+ pulses, warm, well-perfused, no edema. NEUROLOGICAL: AA, orientation as above, facial symmetry, moves all extremities symmetrically, tongue midline, speech normal, sensory exam limited currently as patient occasionally tangential, PERRL, Normal speech, gait not observed. PSYCH: More awake and appropriate today, normal affect. SKIN: Warm, dry, normal turgor, no rashes or lesions noted Laboratory Results - last 24 hr 10/14/18 10/14/18 10/14/18 06:00 06:00 13:20 WBC RBC Hgb Hct MCV MCH MCHC RDW Plt Count MPV Absolute Neuts (auto) Neutrophils % Neutrophils % (Manual) 88.4 H Band Neutrophils % 8.7 Lymphocytes % Lymphocytes % (Manual) 0.0 L Monocytes % Monocytes % (Manual) 2 L Eosinophils % Eosinophils % (Manual) 1.0 Basophils % Basophils % (Manual) 0.0 Myelocytes % (Man) 0 Promyelocytes % (Man) 0 Blast Cells % (Manual) 0 Nucleated RBC % Metamyelocytes 0 Hypochromia 0 Toxic Granulation 1+ Platelet Estimate Normal Polychromasia 0 Poikilocytosis 0 Anisocytosis 1+ Microcytosis 1+ Macrocytosis 0 Sodium 140 Potassium 3.6 Chloride 107 Carbon Dioxide 23 Anion Gap 10 BUN 33 H Creatinine 2.4 H Creat Clearance w eGFR 20.81 Random Glucose 102 Lactic Acid Calcium 8.4 L Phosphorus Magnesium Total Bilirubin 0.6 AST 28 ALT 18 Alkaline Phosphatase 59 Creatine Kinase 1022 H Creatine Kinase Index 0.3 CK-MB (CK-2) 3.7 H C-Reactive Protein Total Protein 5.8 L Albumin 2.8 L Urine Color Urine Appearance Urine pH Ur Specific [place] Urine Protein Urine Glucose (UA) Urine Ketones Urine Blood Urine Nitrite Urine Bilirubin Urine Urobilinogen Ur Leukocyte Esterase Urine WBC (Auto) Urine RBC (Auto) Urine Casts (Auto) U Pathogenic Cast Auto U Epithel Cells (Auto) U Sm Round Cell (Auto) Urine Crystals (Auto) Urine Bacteria (Auto) Ur Random Sodium Ur Random Potassium Ur Random Chloride Urine Creatinine Opiates Screen Methadone Screen Barbiturate Screen Phencyclidine Screen Ur Amphetamines Screen MDMA (Ecstasy) Screen Benzodiazepines Screen Cocaine Screen U Marijuana (THC) Screen Influenza A (Rapid) Negative Influenza B (Rapid) Negative 10/14/18 10/14/18 10/14/18 13:20 13:20 13:20 WBC RBC Hgb Hct MCV MCH MCHC RDW Plt Count MPV Absolute Neuts (auto) Neutrophils % Neutrophils % (Manual) Band Neutrophils % Lymphocytes % Lymphocytes % (Manual) Monocytes % Monocytes % (Manual) Eosinophils % Eosinophils % (Manual) Basophils % Basophils % (Manual) Myelocytes % (Man) Promyelocytes % (Man) Blast Cells % (Manual) Nucleated RBC % Metamyelocytes Hypochromia Toxic Granulation Platelet Estimate Polychromasia Poikilocytosis Anisocytosis Microcytosis Macrocytosis Sodium Potassium Chloride Carbon Dioxide Anion Gap BUN Creatinine Creat Clearance w eGFR Random Glucose Lactic Acid Calcium Phosphorus Magnesium Total Bilirubin AST ALT Alkaline Phosphatase Creatine Kinase Creatine Kinase Index CK-MB (CK-2) C-Reactive Protein Total Protein Albumin Urine Color Yellow Urine Appearance Turbid Urine pH 5.0 Ur Specific [place] 1.021 Urine Protein 1+ H Urine Glucose (UA) Negative Urine Ketones Trace H Urine Blood Negative Urine Nitrite Negative Urine Bilirubin Negative Urine Urobilinogen 1.0 Ur Leukocyte Esterase Negative Urine WBC (Auto) 4 Urine RBC (Auto) 3 Urine Casts (Auto) 78 U Pathogenic Cast Auto Coarse granular cast U Epithel Cells (Auto) 7.1 U Sm Round Cell (Auto) None seen Urine Crystals (Auto) None seen Urine Bacteria (Auto) 0.3 Ur Random Sodium < 18 L Ur Random Potassium 60.4 Ur Random Chloride 20 L Urine Creatinine 305.0 H Opiates Screen Negative Methadone Screen Negative Barbiturate Screen Negative Phencyclidine Screen Negative Ur Amphetamines Screen Negative MDMA (Ecstasy) Screen Negative Benzodiazepines Screen Positive A* Cocaine Screen Negative U Marijuana (THC) Screen Negative Influenza A (Rapid) Influenza B (Rapid) 10/15/18 10/15/18 10/15/18 06:00 06:00 06:00 WBC 8.3 RBC 4.94 Hgb 12.0 Hct 37.2 MCV 75.2 L MCH 24.2 L MCHC 32.2 RDW 17.9 H Plt Count 219 D MPV 9.2 Absolute Neuts (auto) 7.5 Neutrophils % 89.6 H Neutrophils % (Manual) Band Neutrophils % Lymphocytes % 3.3 L D Lymphocytes % (Manual) Monocytes % 3.9 D Monocytes % (Manual) Eosinophils % 2.8 D Eosinophils % (Manual) Basophils % 0.4 Basophils % (Manual) Myelocytes % (Man) Promyelocytes % (Man) Blast Cells % (Manual) Nucleated RBC % 0 Metamyelocytes Hypochromia Toxic Granulation Platelet Estimate Polychromasia Poikilocytosis Anisocytosis Microcytosis Macrocytosis Sodium 140 Potassium 3.6 Chloride 108 H Carbon Dioxide 23 Anion Gap 9 BUN 42 H Creatinine 2.3 H Creat Clearance w eGFR 21.86 Random Glucose 112 H Lactic Acid 0.8 Calcium 7.9 L Phosphorus 3.2 Magnesium 2.1 Total Bilirubin 0.2 AST 36 ALT 25 Alkaline Phosphatase 56 Creatine Kinase Creatine Kinase Index CK-MB (CK-2) C-Reactive Protein 16.8 H Total Protein 5.6 L Albumin 2.6 L Urine Color Urine Appearance Urine pH Ur Specific [place] Urine Protein Urine Glucose (UA) Urine Ketones Urine Blood Urine Nitrite Urine Bilirubin Urine Urobilinogen Ur Leukocyte Esterase Urine WBC (Auto) Urine RBC (Auto) Urine Casts (Auto) U Pathogenic Cast Auto U Epithel Cells (Auto) U Sm Round Cell (Auto) Urine Crystals (Auto) Urine Bacteria (Auto) Ur Random Sodium Ur Random Potassium Ur Random Chloride Urine Creatinine Opiates Screen Methadone Screen Barbiturate Screen Phencyclidine Screen Ur Amphetamines Screen MDMA (Ecstasy) Screen Benzodiazepines Screen Cocaine Screen U Marijuana (THC) Screen Influenza A (Rapid) Influenza B (Rapid) Microbiology 10/13/18 16:00 Urine - Urine - Catheterized Urine Culture - Final NO GROWTH OBTAINED 10/13/18 20:15 Blood - Peripheral Venous Blood Culture - Preliminary NO GROWTH OBTAINED AFTER 24 HOURS, INCUBATION TO CONTINUE FOR 4 DAYS. 10/13/18 18:30 Blood - Peripheral Venous Blood Culture - Preliminary NO GROWTH OBTAINED AFTER 24 HOURS, INCUBATION TO CONTINUE FOR 4 DAYS. Active Medications Generic Name Dose Route Start Last Admin Trade Name Freq PRN Reason Stop Dose Admin Acetaminophen 1,000 mg 10/13/18 17:11 10/15/18 02:24 Ofirmev Injection - IVPB 1,000 mg Q6H PRN Administration FEVER Acyclovir 1,000 mg/ Dextrose 270 mls @ 135 mls/hr 10/14/18 11:30 10/14/18 23: 09 IVPB 135 mls/hr Q12H JOSEF Administration Dextrose/Sodium Chloride 1,000 mls @ 150 mls/hr 10/14/18 14:45 10/15/18 01:51 D5-Ns - IV 150 mls/hr ASDIR JOSEF Administration Ceftriaxone Sodium 2 gm/ 100 mls @ 100 mls/hr 10/14/18 18:30 10/15/18 05:41 Dextrose IVPB 100 mls/hr BID@0600,1800 JOSEF Administration Protocol Metoprolol Tartrate 25 mg 10/14/18 14:46 10/15/18 10:35 Lopressor - PO 25 mg BID JOSEF Administration Oxcarbazepine 200 mg 10/13/18 10:30 10/15/18 10:36 Trileptal PO 200 mg BID JOSEF Administration Timolol Maleate 1 drop 10/13/18 10:00 10/15/18 10:35 Timoptic 0.5% OU 1 drop DAILY JOSEF Administration Home Medications Medication Instructions Recorded Aspirin [ASA -] 81 mg PO DAILY 12/29/15 Metoprolol Tartrate [Lopressor -] 50 mg PO BID #60 tab 10/26/17 Nifedipine [Procardia Xl] 60 mg PO DAILY #30 tab 10/26/17 Oxcarbazepine 150 mg PO BID #60 tablet 10/26/17 Timolol 0.5% [Timoptic 0.5%] 1 drop OU DAILY #1 bottle 10/26/17 Hydrochlorothiazide [Hctz -] 25 mg PO DAILY 08/09/18 ASSESSMENT/PLAN: 58 yof with PMhx of R haemorrhagic stroke, complex partial seizure disorder due to the same, HTN, HLD admitted with witnessed seizure -Sepsis,? aspiration from seizure/medications, r/o meningitis/encephalatis, however lower on suspicion today -RAMYA, from hypovolumi/ATN from sepsis/poor oral intake, vs medication induced vs rhabdomyolysis, no evidence of obstruction -Witnessed seizure -Encephalopathy, infection vs seizure vs post ictal vs from meds -Left conjunctivitis -H/o right sided haemorrhagic stroke -HTN -HLD Plan: Overall fever curve improved. Mental status improved markedly today. onset fevers inhouse post seizure and sedating meds, ?aspiration. CT chest/a/p. Unable to do LP with IR given lack of co-operation. However current exam and rapid improvement today. follow up with neuro . On ceftriaxone/acyclovir/vanco . Taper per ID. Follow up blood cx. Abx eye drops. EEG as discussed with Dr. Nasima mcintyre for seizure. Carbamazepine increased 200 mg BID, continue, seizure precautions. Cleared bedside swallow eval, advance to soft diet with aspiration precautions. Nephrology input noted. Renal/bladder US with no concerns. Continue IVF, avoid nephrotoxins and monitor. Trend CPK. MRI brain based on clinical course. hold nifedipine/HCTZ. Decreased metoprolol, titrate up as improves. DVTPPX Hold heparin pending possible LP/intervention Dispo pending clinical improvement. Plan discussed with patient, nursing,in detail, all questions answered. Care co- ordinated with ID Visit type - Emergency Visit Emergency Visit: Yes ED Registration Date: 10/13/18 Care time: The patient presented to the Emergency Department on the above date and was hospitalized for further evaluation of their emergent condition. - New Patient This patient is new to me today: No - Critical Care Critical Care patient: No - Discharge Referral Referred to [facility] Med P.C.: No
--- NOTE | 2018-10-15 11:59 | PN ---
Progress Note, Physician History of Present Illness: covering for DR LAKE 58 year old female with a significant past medical history of R sided hemorrhagic stroke with complex partial seizures as a result, HTN, HLD, who presented to the ED with complaints of reportedly seizure like episode that occured 1.5 hours prior to ED arrival. As per patient's family at bedside patient stated that she felt her seizure coming on. According to notes, family reported her legs were shaking. EMS reports giving 5 versed IV in the field. Seizures resolved at that time. Family reported no trauma, fevers, chills. Per med recon, she is on trileptal 150 mg BID. Was contacted by ER overnight and patient reportedly with seizure event in ED, reportedly given Ativan. CT head completed and without acute changes, labs reviewed. Advised trileptal level. Patient monitored overnight and no subsequent seizure. During my eval this AM, is somnolent but arousable, limited historian. Will adjust Trileptal to increase to 200mg twice daily from 150. Sodium level is in normal range. EEG ordered and being completed this AM (patient being called down during morning rounds for EEG). Discussed with nurse. FU : febrile, RAMYA uncoopertaive for LP, delirium continues but was able to converse me with me today being covered broad spectrum ABX on trileptal 200BID - Current Medication List Current Medications: Active Medications Acetaminophen (Ofirmev Injection -) 1,000 mg IVPB Q6H PRN PRN Reason: FEVER Last Admin: 10/15/18 02:24 Dose: 1,000 mg Acyclovir 1,000 mg/ Dextrose 270 mls @ 135 mls/hr IVPB Q12H JOSEF Last Admin: 10/14/18 23:09 Dose: 135 mls/hr Dextrose/Sodium Chloride (D5-Ns -) 1,000 mls @ 150 mls/hr IV ASDIR JOSEF Last Admin: 10/15/18 01:51 Dose: 150 mls/hr Ceftriaxone Sodium 2 gm/ (Dextrose) 100 mls @ 100 mls/hr IVPB BID@0600,1800 [facility] ; Protocol Last Admin: 10/15/18 05:41 Dose: 100 mls/hr Metoprolol Tartrate (Lopressor -) 25 mg PO BID [facility] Last Admin: 10/15/18 10:35 Dose: 25 mg Oxcarbazepine (Trileptal) 200 mg PO BID [facility] Last Admin: 10/15/18 10:36 Dose: 200 mg Timolol Maleate (Timoptic 0.5%) 1 drop OU DAILY [facility] Last Admin: 10/15/18 10:35 Dose: 1 drop - Objective Vital Signs: Vital Signs Temperature 99.5 F 10/15/18 10:57 Pulse Rate 117 H 10/15/18 10:57 Respiratory Rate 18 10/15/18 10:57 Blood Pressure 134/90 10/15/18 10:57 O2 Sat by Pulse Oximetry (%) 93 L 10/14/18 21:00 Labs: CBC, BMP 10/15/18 06:00 10/15/18 06:00 INR, PTT INR 1.04 (0.83-1.09) 10/13/18 08:25 Problem List - Problems (1) Seizure Code(s): R56.9 - UNSPECIFIED CONVULSIONS (2) HTN (hypertension), benign Code(s): I10 - ESSENTIAL (PRIMARY) HYPERTENSION (3) History of CVA (cerebrovascular accident) Code(s): Z86.73 - PRSNL HX OF TIA (TIA), AND CEREB INFRC W/O RESID DEFICITS Assessment/Plan 58 year old female with a significant past medical history of R sided hemorrhagic stroke with complex partial seizures as a result, HTN, HLD, who presented to the ED with complaints of reportedly seizure like episode that occured 1.5 hours prior to ED arrival. As per patient's family at bedside patient stated that she felt her seizure coming on. According to notes, family reported her legs were shaking. EMS reports giving 5 versed IV in the field. Seizures resolved at that time. Family reported no trauma, fevers, chills. Per med recon, she is on trileptal 150 mg BID. Was contacted by ER overnight and patient reportedly with seizure event in ED, reportedly given Ativan. CT head completed and without acute changes, labs reviewed. Advised trileptal level. Patient monitored overnight and no subsequent seizure. During my eval this AM, is somnolent but arousable, limited historian. Will adjust Trileptal to increase to 200mg twice daily from 150. Sodium level is in normal range. EEG ordered and being completed this AM (patient being called down during morning rounds for EEG). Discussed with nurse. AP: hx of R ICH , seizure disorder, presenting of fever, Unkown etiology CRP 16, UA (-), FU Blood cltx and needs braod spectrum in meatime meningitis possibility , LP unsuccesful yesterday will attempt bedside in AM --she states she does not want it done today nurse aware cont TRileptal --inc to 300BID, no recent seizure ( dosing easier ) get MRI BRAIN as well, though may need ot be done when she is more calm DR JUAN
[2018-10-15 12:07] LABS: ERYTHROCYTE SEDIMENTATION RATE 16 mm/hr (0-30)
[2018-10-15] MEDS: ACYCLOVIR INJECTION 1,000 MG in DEXTROSE 5%-WATER - 250 ML IVPB SCH ×2 (14:55→23:07)
--- NOTE | 2018-10-15 16:59 | PN ---
Progress Note (short form) - Note Progress Note: 58 year old woman with hx of Right sided hemorrhagic stroke with complex partial seizures as a result, HTN, hyperlipidemia who presented from home with seizures and found to be febrile with RAMYA. #Seizures #Fevers/Sepsis syndrome #RAMYA (normal baseline renal function) #Hx of CVA Differential for RAMYA (sepsis related renal hypoprofusion vs. ATN vs Pigment injury from rhabdo vs. acute GN) urine studies show low urine Na indicating preserved tubular function Multiple granular casts seen in urine (could be from seizure related rhabdo vs. ATN or from urinary concentration from low voluem state Check UPCR Trend Serum CK levels continue aggressive IVF hydration with isotonic saline (will need IV hydration for duration of IV acyclovir) Would repeat UA in 24 hours keep MAP > 65 Dose all meds for CrCl < 15 avoid IV contrast and nephrotoxins if possible Neurology and ID follow up Current Medications Acetaminophen (Ofirmev Injection -) 1,000 mg IVPB Q6H PRN PRN Reason: FEVER Last Admin: 10/15/18 02:24 Dose: 1,000 mg Acyclovir 1,000 mg/ Dextrose 270 mls @ 135 mls/hr IVPB Q12H JOSEF Last Admin: 10/15/18 14:55 Dose: 135 mls/hr Dextrose/Sodium Chloride (D5-Ns -) 1,000 mls @ 150 mls/hr IV ASDIR JOSEF Last Admin: 10/15/18 01:51 Dose: 150 mls/hr Ceftriaxone Sodium 2 gm/ (Dextrose) 100 mls @ 100 mls/hr IVPB BID@0600,1800 JOSEF ; Protocol Last Admin: 10/15/18 05:41 Dose: 100 mls/hr Metoprolol Tartrate (Lopressor -) 25 mg PO BID [facility] Last Admin: 10/15/18 10:35 Dose: 25 mg Oxcarbazepine (Trileptal) 200 mg PO BID [facility] Last Admin: 10/15/18 10:36 Dose: 200 mg Timolol Maleate (Timoptic 0.5%) 1 drop OU DAILY [facility] Last Admin: 10/15/18 10:35 Dose: 1 drop Last Vital Signs Temp Pulse Resp BP Pulse Ox 98.4 F 100 H 18 119/62 93 L 10/15/18 14:24 10/15/18 14:24 10/15/18 14:24 10/15/18 14:24 10/14/18 21:00 confused, responsive in restraints Lungs clear Heart reg Abd soft nontender Ext no edema CBC, BMP 10/15/18 06:00 10/15/18 06:00 imp ARF azotemia may have plateaued Plan- continue IVF for now F/u labs in am
[2018-10-15] MEDS ORDERED: PT OWN MED DRAWER 7, Y5N ONE ×2 (18:55→23:01)
[2018-10-15] MEDS: OFLOXACIN 0.3% OPHTHALMIC SOLUTION 5 ML BOTTLE OU SCH (23:06)
[2018-10-16] MEDS ORDERED: DEXTROSE 5%-WATER 100 ML IVPB ONE ×2 (06:04→17:22)
[2018-10-16] MEDS: OFLOXACIN 0.3% OPHTHALMIC SOLUTION 5 ML BOTTLE OU SCH ×5 (06:59→22:31)
[2018-10-16] MEDS: CEFTRIAXONE 2 GM in DEXTROSE 5%-WATER 100 ML IVPB SCH ×2 (07:01→17:47)
[2018-10-16 08:41] LABS: ALBUMIN 2.5 g/dl (3.4-5.0); ALK PHOS 56 U/L (45-117); ANION GAP 8 MMOL/L (8-16); BILIRUBIN,TOTAL 0.3 mg/dL (0.2-1); BLOOD UREA NITROGEN 28 mg/dL (7-18); CHLORIDE 112 mmol/L (98-107); CO2 25 mmol/L (21-32); CREATININE 1.6 mg/dL (0.55-1.3); GLUCOSE,RANDOM 98 mg/dL (74-106); MAGNESIUM 1.9 mg/dL (1.8-2.4); PHOSPHOROUS 2.6 mg/dL (2.5-4.9); POTASSIUM 3.2 mmol/L (3.5-5.1); SGOT/AST 17 U/L (15-37); SGPT/ALT 22 U/L (13-61); SODIUM 145 mmol/L (136-145); TOT PROT 5.5 g/dl (6.4-8.2)
--- NOTE | 2018-10-16 09:23 | PN ---
Physical Exam: SUBJECTIVE: Patient seen and examined, more awake and co-operative though still confused. Much improved than before. Denies any pain or concerns. OBJECTIVE: Vital Signs Period Temp Pulse Resp BP Sys/Lewis Pulse Ox Last 24 Hr 98.2 F-99.5 F 75-117 18-20 92-144/50-98 94-95 Intake & Output 10/13/18 10/14/18 10/15/18 10/16/18 23:59 23:59 23:59 23:59 Intake Total 1674 2653 3320 1850 Output Total 750 1950 900 Balance 1674 1903 1370 950 Weight 280 lb 2 oz GENERAL: The patient is awake, alert, oriented to self, thought was [facility] knows is September 2018 , continues to improve but confused still, in no acute distress. HEAD: Normal with no signs of trauma. EYES: mild left eye conjunctival erythema with crusting improved today ENT: Ears normal, nares patent, oropharynx clear without exudates, moist mucous membranes. NECK: Trachea midline, full range of motion, supple. LUNGS:decreased effort, no rales or wheezing appreciated HEART: Regular rate and rhythm, S1, S2 ABDOMEN: Soft, obese, nontender, nondistended, normoactive bowel sounds, no guarding, no rebound, no CVA or suprapubic tenderness EXTREMITIES: 2+ pulses, warm, well-perfused, no edema. NEUROLOGICAL: AA, orientation as above, facial symmetry, moves all extremities symmetrically, tongue midline, speech normal, sensory exam limited currently as patient occasionally tangential, PERRL, Normal speech, gait not observed. Confused with intermittent tangential conversations, though improved PSYCH: More awake and appropriate today, normal affect. SKIN: Warm, dry, normal turgor, no rashes or lesions noted Laboratory Results - last 24 hr 10/15/18 10/15/18 10/16/18 06:00 12:00 07:00 ESR 16 Sodium 145 Potassium 3.2 L Chloride 112 H Carbon Dioxide 25 Anion Gap 8 BUN 28 H Creatinine 1.6 H Creat Clearance w eGFR 33.22 Random Glucose 98 Calcium 8.0 L Phosphorus 2.6 Magnesium 1.9 Total Bilirubin 0.3 AST 17 ALT 22 Alkaline Phosphatase 56 Creatine Kinase 646 H Creatine Kinase Index 0.4 CK-MB (CK-2) 2.8 Total Protein 5.5 L Albumin 2.5 L 10/16/18 07:00 ESR Sodium Potassium Chloride Carbon Dioxide Anion Gap BUN Creatinine Creat Clearance w eGFR Random Glucose Calcium Phosphorus Magnesium Total Bilirubin AST ALT Alkaline Phosphatase Creatine Kinase 347 H Creatine Kinase Index 0.5 CK-MB (CK-2) 1.9 Total Protein Albumin Active Medications Generic Name Dose Route Start Last Admin Trade Name Freq PRN Reason Stop Dose Admin Acetaminophen 1,000 mg 10/13/18 17:11 10/15/18 02:24 Ofirmev Injection - IVPB 1,000 mg Q6H PRN Administration FEVER Acyclovir 1,000 mg/ Dextrose 270 mls @ 135 mls/hr 10/14/18 11:30 10/15/18 23: 07 IVPB 135 mls/hr Q12H JOSEF Administration Ceftriaxone Sodium 2 gm/ 100 mls @ 100 mls/hr 10/14/18 18:30 10/16/18 07:01 Dextrose IVPB 100 mls/hr BID@0600,1800 JOSEF Administration Protocol Potassium Chloride/Dextrose/Sod Cl 20 meq in 1,000 mls @ 125 mls/hr 10/16/18 08:45 D5-1/2ns+20 Meq Kcl - IV ASDIR JOSEF Potassium Chloride 10 meq in 100 mls @ 100 mls/hr 10/16/18 09:30 Potassium Chloride 10 Meq Premix Ivpb - IVPB 10/16/18 11:29 Q60M JOSEF Metoprolol Tartrate 25 mg 10/14/18 14:46 10/15/18 23:06 Lopressor - PO 25 mg BID JOSEF Administration Ofloxacin 1 drop 10/15/18 22:00 10/16/18 06:59 Ocuflox 0.3% Eye Drops - OU 1 drop Q4HWA JOSEF Administration Oxcarbazepine 200 mg 10/13/18 10:30 10/15/18 23:07 Trileptal PO 200 mg BID JOSEF Administration Timolol Maleate 1 drop 10/13/18 10:00 10/15/18 10:35 Timoptic 0.5% OU 1 drop DAILY JOSEF Administration CT A/P prelim report reviewed, ?Unable to do CT chest ASSESSMENT/PLAN: 58 yof with PMhx of R haemorrhagic stroke, complex partial seizure disorder due to the same, HTN, HLD admitted with witnessed seizure -Sepsis,? aspiration from seizure/medications, r/o meningitis/encephalatis, however lower on suspicion today -RAMYA, from hypovolumi/ATN from sepsis/poor oral intake, vs medication induced vs rhabdomyolysis, no evidence of obstruction -Witnessed seizure -Encephalopathy, infection vs seizure vs post ictal vs from meds -Left conjunctivitis -Hypokalemia -Hypernatremia, suspect hypovoumic with ongoing NS repletion. -H/o right sided haemorrhagic stroke -HTN -HLD Plan: Fevers resolved. Mental status continues to improve. onset fevers inhouse post seizure and sedating meds, ?aspiration. CT a/p prelim read noted, ?unable to get CT chest, discuss with radiology. CXR. Unable to do LP with IR given lack of co-operation. However current exam and rapid improvement today. follow up with neuro for LP re -attempt . On ceftriaxone/acyclovir, vanco dced . Taper per ID. Blood cx neg so far. ofloxacin eye drops EEG as discussed with Dr. Del Real neg for seizure. Increase carbamazepine to 300 mg BID per neuro recs, continue, seizure precautions. Cleared bedside swallow eval, soft diet with aspiration precautions. Change IVF to D5-1/2NS with K. Additional K repletion. Nephrology input noted. Renal/bladder US with no concerns. Continue IVF, avoid nephrotoxins and monitor. Trend CPK. MRI brain based on clinical course. hold nifedipine/HCTZ. Decreased metoprolol, titrate up as improves. DVTPPX Hold heparin pending possible LP/intervention Dispo pending clinical improvement. Plan discussed with patient, nursing,in detail, all questions answered. Visit type - Emergency Visit Emergency Visit: Yes ED Registration Date: 10/13/18 Care time: The patient presented to the Emergency Department on the above date and was hospitalized for further evaluation of their emergent condition. - New Patient This patient is new to me today: No - Critical Care Critical Care patient: No - Discharge Referral Referred to [facility] Med P.C.: No
[2018-10-16] MEDS: METOPROLOL TARTRATE 25 MG TABLET (FP) PO SCH ×2 (09:35→22:30)
[2018-10-16] MEDS: KCL 10 MEQ IVPB 10 MEQ/100 ML INFUS.BAG IVPB SCH ×2 (09:37→11:45)
[2018-10-16] MEDS: D5-1/2NS+20 MEQ KCL - 20 MEQ/1,000 ML INFUS.BAG IV SCH ×2 (09:37→22:30)
[2018-10-16 10:05] LABS: BASO % 0.3 % (0-2.0); EOS % 6.4 % (0-4.5); HEMATOCRIT 35.7 % (32.4-45.2); HEMOGLOBIN 11.9 GM/dL (10.7-15.3); LYMPH % 8.7 % (8-40); MCH 25.4 pg (25.7-33.7); MCHC 33.3 g/dl (32.0-36.0); MEAN CELL VOLUME 76.2 fl (80-96); MEAN PLT VOLUME 9.1 fl (7.5-11.1); MONO % 3.1 % (3.8-10.2); NEUT % 81.5 % (42.8-82.8); PLATELET COUNT 212 K/MM3 (134-434); RBC 4.69 M/mm3 (3.60-5.2); RDW 17.9 % (11.6-15.6)
[2018-10-16] MEDS: TIMOLOL 0.5% OPHTHALMIC SOL 5 ML BOTTLE OU SCH (10:44)
[2018-10-16] MEDS: OXcarbazepine 300 MG/5 ML 250 ML BULK BOTTLE PO SCH ×2 (10:46→22:31)
--- NOTE | 2018-10-16 12:37 | PN ---
Progress Note (short form) - Note Progress Note: much more alert and conversant although still confused afebrile Vital Signs Period Temp Pulse Resp BP Sys/Lewis Pulse Ox Last 24 Hr 98.2 F-98.9 F 75-112 18-20 92-144/50-98 94-95 cor-rrr llungs clear abd soft,nt ext no edema ct scan c/a/p- cardiomegaly , moderatly enlarged thryroid CBC, BMP 10/16/18 07:00 10/16/18 07:00 Microbiology 10/15/18 16:45 Urine For Antigen Detection Legionella Antigen - Final 10/15/18 16:45 Urine For Antigen Detection Streptococcus pneumoniae Antigen (M - Final-negative 10/13/18 20:15 Blood - Peripheral Venous Blood Culture - Preliminary NO GROWTH OBTAINED AFTER 48 HOURS, INCUBATION TO CONTINUE FOR 3 DAYS. 10/13/18 18:30 Blood - Peripheral Venous Blood Culture - Preliminary NO GROWTH OBTAINED AFTER 48 HOURS, INCUBATION TO CONTINUE FOR 3 DAYS. 10/13/18 16:00 Urine - Urine - Catheterized Urine Culture - Final NO GROWTH OBTAINED a/p fevers resolved leukocytosis resolved awake but somewhat confused- not sure what baseline is- continue rocephin/acyclovir darwin elevated cpk history seizures history of CVA continue aggressive if hydration while on acyclovir awaiting LP clinically improved
[2018-10-16] MEDS ORDERED: PT OWN MED DRAWER 7, Y5N ONE ×3 (14:02→22:38)
[2018-10-16] MEDS: ACYCLOVIR INJECTION 1,000 MG in DEXTROSE 5%-WATER - 250 ML IVPB SCH ×2 (14:03→22:38)
--- NOTE | 2018-10-16 16:18 | PN ---
Progress Note (short form) - Note Progress Note: covering for DR LAKE 58 year old female with a significant past medical history of R sided hemorrhagic stroke with complex partial seizures as a result, HTN, HLD, who presented to the ED with complaints of reportedly seizure like episode that occured 1.5 hours prior to ED arrival. As per patient's family at bedside patient stated that she felt her seizure coming on. According to notes, family reported her legs were shaking. EMS reports giving 5 versed IV in the field. Seizures resolved at that time. Family reported no trauma, fevers, chills. Per med recon, she is on trileptal 150 mg BID. Was contacted by ER overnight and patient reportedly with seizure event in ED, reportedly given Ativan. CT head completed and without acute changes, labs reviewed. Advised trileptal level. Patient monitored overnight and no subsequent seizure. During my eval this AM, is somnolent but arousable, limited historian. Will adjust Trileptal to increase to 200mg twice daily from 150. Sodium level is in normal range. EEG ordered and being completed this AM (patient being called down during morning rounds for EEG). Discussed with nurse. FU : much morer awake today, smiling and conversive being covered broad spectrum ABX including acyclovir on trileptal 300BID - Current Medication List Current Medications: Active Medications Acetaminophen (Ofirmev Injection -) 1,000 mg IVPB Q6H PRN PRN Reason: FEVER Last Admin: 10/15/18 02:24 Dose: 1,000 mg Acyclovir 1,000 mg/ Dextrose 270 mls @ 135 mls/hr IVPB Q12H [facility] Last Admin: 10/14/18 23:09 Dose: 135 mls/hr Dextrose/Sodium Chloride (D5-Ns -) 1,000 mls @ 150 mls/hr IV ASDIR [facility] Last Admin: 10/15/18 01:51 Dose: 150 mls/hr Ceftriaxone Sodium 2 gm/ (Dextrose) 100 mls @ 100 mls/hr IVPB BID@0600,1800 [facility] ; Protocol Last Admin: 10/15/18 05:41 Dose: 100 mls/hr Metoprolol Tartrate (Lopressor -) 25 mg PO BID [facility] Last Admin: 10/15/18 10:35 Dose: 25 mg Oxcarbazepine (Trileptal) 200 mg PO BID [facility] Last Admin: 10/15/18 10:36 Dose: 200 mg Timolol Maleate (Timoptic 0.5%) 1 drop OU DAILY [facility] Last Admin: 10/15/18 10:35 Dose: 1 drop - Objective Vital Signs: Vital Signs Temperature 99.2 F 10/16/18 14:00 Pulse Rate 86 10/16/18 14:00 Respiratory Rate 16 10/16/18 14:00 Blood Pressure 129/83 10/16/18 14:00 O2 Sat by Pulse Oximetry (%) 94 L 10/15/18 22:00 Labs: CBC, BMP 10/15/18 06:00 10/15/18 06:00 INR, PTT INR 1.04 (0.83-1.09) 10/13/18 08:25 Problem List - Problems (1) Seizure Code(s): R56.9 - UNSPECIFIED CONVULSIONS (2) HTN (hypertension), benign Code(s): I10 - ESSENTIAL (PRIMARY) HYPERTENSION (3) History of CVA (cerebrovascular accident) Code(s): Z86.73 - PRSNL HX OF TIA (TIA), AND CEREB INFRC W/O RESID DEFICITS Assessment/Plan 58 year old female with a significant past medical history of R sided hemorrhagic stroke with complex partial seizures as a result, HTN, HLD, who presented to the ED with complaints of reportedly seizure like episode that occured 1.5 hours prior to ED arrival. As per patient's family at bedside patient stated that she felt her seizure coming on. According to notes, family reported her legs were shaking. EMS reports giving 5 versed IV in the field. Seizures resolved at that time. Family reported no trauma, fevers, chills. Per med recon, she is on trileptal 150 mg BID. Was contacted by ER overnight and patient reportedly with seizure event in ED, reportedly given Ativan. CT head completed and without acute changes, labs reviewed. Advised trileptal level. Patient monitored overnight and no subsequent seizure. During my eval this AM, is somnolent but arousable, limited historian. Will adjust Trileptal to increase to 200mg twice daily from 150. Sodium level is in normal range. EEG ordered and being completed this AM (patient being called down during morning rounds for EEG). Discussed with nurse. AP: hx of R ICH , seizure disorder, presenting of fever, Unkown etiology CRP 16, UA (-), FU Blood cltx and needs braod spectrum in meantime meningitis possibility , LP unsuccesful though she is doing better , unclear which culprit the cause viral /bacterial meningitis -- ? herpes would still pursue Flouroguided LP in AM, check HSV 1 and 2 --then can address ABX accordingly cont TRileptal 300BID, no recent seizure ( dosing easier ) get MRI BRAIN as well, DR JUAN Problem List - Problems (1) Seizure Code(s): R56.9 - UNSPECIFIED CONVULSIONS (2) HTN (hypertension), benign Code(s): I10 - ESSENTIAL (PRIMARY) HYPERTENSION (3) History of CVA (cerebrovascular accident) Code(s): Z86.73 - PRSNL HX OF TIA (TIA), AND CEREB INFRC W/O RESID DEFICITS
--- NOTE | 2018-10-16 19:08 | PN ---
Progress Note (short form) - Note Progress Note: 58 year old woman with hx of Right sided hemorrhagic stroke with complex partial seizures as a result, HTN, hyperlipidemia who presented from home with seizures and found to be febrile with RAMYA. Seizures Fevers/Sepsis syndrome RAMYA (normal baseline renal function) Hx of CVA Current Medications Acetaminophen (Ofirmev Injection -) 1,000 mg IVPB Q6H PRN PRN Reason: FEVER Last Admin: 10/15/18 02:24 Dose: 1,000 mg Acyclovir 1,000 mg/ Dextrose 270 mls @ 135 mls/hr IVPB Q12H [facility] Last Admin: 10/16/18 14:03 Dose: 135 mls/hr Ceftriaxone Sodium 2 gm/ (Dextrose) 100 mls @ 100 mls/hr IVPB BID@0600,1800 [facility] ; Protocol Last Admin: 10/16/18 17:47 Dose: 100 mls/hr Potassium Chloride/Dextrose/Sod Cl (D5-1/2ns+20 Meq Kcl -) 20 meq in 1,000 mls @ 125 mls/hr IV ASDIR [facility] Last Admin: 10/16/18 09:37 Dose: 125 mls/hr Metoprolol Tartrate (Lopressor -) 25 mg PO BID [facility] Last Admin: 10/16/18 09:35 Dose: 25 mg Ofloxacin (Ocuflox 0.3% Eye Drops -) 1 drop OU Q4HWA [facility] Last Admin: 10/16/18 17:51 Dose: 1 drop Oxcarbazepine (Trileptal) 300 mg PO BID [facility] Last Admin: 10/16/18 10:46 Dose: 300 mg Timolol Maleate (Timoptic 0.5%) 1 drop OU DAILY [facility] Last Admin: 10/16/18 10:44 Dose: 1 drop Last Vital Signs Temp Pulse Resp BP Pulse Ox 99.2 F 86 16 129/83 94 L 10/16/18 14:00 10/16/18 14:00 10/16/18 14:00 10/16/18 14:00 10/15/18 22:00 confused, responsive in restraints Lungs clear Heart reg Abd soft nontender Ext no edema CBC, BMP 10/16/18 07:00 10/16/18 07:00 CBC, BMP 10/15/18 06:00 10/15/18 06:00 IMP- ARF seems to resolving Plan- continue IVF for now F/u labs in am
[2018-10-17] MEDS ORDERED: DEXTROSE 5%-WATER 100 ML IVPB ONE ×2 (05:08→18:14)
[2018-10-17] MEDS: OFLOXACIN 0.3% OPHTHALMIC SOLUTION 5 ML BOTTLE OU SCH ×5 (05:23→22:03)
[2018-10-17] MEDS: CEFTRIAXONE 2 GM in DEXTROSE 5%-WATER 100 ML IVPB SCH ×2 (05:23→18:38)
[2018-10-17 06:31] LABS: BASO % 0.1 % (0-2.0); EOS % 8.2 % (0-4.5); HEMATOCRIT 36.8 % (32.4-45.2); HEMOGLOBIN 12.2 GM/dL (10.7-15.3); LYMPH % 12.8 % (8-40); MCH 25.5 pg (25.7-33.7); MCHC 33.2 g/dl (32.0-36.0); MEAN CELL VOLUME 76.7 fl (80-96); MEAN PLT VOLUME 8.6 fl (7.5-11.1); MONO % 7.6 % (3.8-10.2); NEUT % 71.3 % (42.8-82.8); PLATELET COUNT 230 K/MM3 (134-434); RDW 18.3 % (11.6-15.6)
[2018-10-17 07:15] LABS: ALBUMIN 2.4 g/dl (3.4-5.0); ALK PHOS 71 U/L (45-117); ANION GAP 7 MMOL/L (8-16); BILIRUBIN,TOTAL 0.3 mg/dL (0.2-1); BLOOD UREA NITROGEN 16 mg/dL (7-18); CALCIUM 7.6 mg/dL (8.5-10.1); CHLORIDE 112 mmol/L (98-107); CO2 26 mmol/L (21-32); CREATININE 1.2 mg/dL (0.55-1.3); GLUCOSE,RANDOM 104 mg/dL (74-106); POTASSIUM 3.5 mmol/L (3.5-5.1); SGOT/AST 13 U/L (15-37); SGPT/ALT 21 U/L (13-61); SODIUM 145 mmol/L (136-145); TOT PROT 5.4 g/dl (6.4-8.2)
--- NOTE | 2018-10-17 09:04 | PN ---
Progress Note (short form) - Note Progress Note: Neurology CHIEF COMPLAINT: seizure HISTORY OF PRESENT ILLNESS: 58 year old female with a significant past medical history of R sided hemorrhagic stroke with complex partial seizures as a result, HTN, HLD, who presented to the ED with complaints of reportedly seizure like episode that occured 1.5 hours prior to ED arrival. As per patient's family at bedside patient stated that she felt her seizure coming on. According to notes, family reported her legs were shaking. EMS reports giving 5 versed IV in the field. Seizures resolved at that time. Family reported no trauma, fevers, chills. Per med recon, she is on trileptal 150 mg BID. Was contacted by ER overnight and patient reportedly with seizure event in ED, reportedly given Ativan. CT head completed and without acute changes, labs reviewed. Appreciate coverage over the weekend. Patient improved and more awake, alert, interactive, though did not know date, location, name of President initally and had to be told this information. EEG reviewed and demonstrated evidence of encephalopathy but no abnormal epileptiform activity. Spinal tap attempted but patient uncooperative. Has been on broad spectrum Abx. Trileptal also increased to 300mg. Agree with MRI brain. Remains under restraints at this time but more calm and cooperative. Active Medications Acetaminophen (Ofirmev Injection -) 1,000 mg IVPB Q6H PRN PRN Reason: FEVER Last Admin: 10/15/18 02:24 Dose: 1,000 mg Acyclovir 1,000 mg/ Dextrose 270 mls @ 135 mls/hr IVPB Q12H [facility] Last Admin: 10/16/18 22:38 Dose: 135 mls/hr Ceftriaxone Sodium 2 gm/ (Dextrose) 100 mls @ 100 mls/hr IVPB BID@0600,1800 [facility] ; Protocol Last Admin: 10/17/18 05:23 Dose: 100 mls/hr Potassium Chloride/Dextrose/Sod Cl (D5-1/2ns+20 Meq Kcl -) 20 meq in 1,000 mls @ 125 mls/hr IV ASDIR [facility] Last Admin: 10/16/18 22:30 Dose: 125 mls/hr Metoprolol Tartrate (Lopressor -) 50 mg PO BID [facility] Ofloxacin (Ocuflox 0.3% Eye Drops -) 1 drop OU Q4HWA [facility] Last Admin: 10/17/18 05:23 Dose: 1 drop Oxcarbazepine (Trileptal) 300 mg PO BID [facility] Last Admin: 10/16/18 22:31 Dose: 300 mg Timolol Maleate (Timoptic 0.5%) 1 drop OU DAILY [facility] Last Admin: 10/16/18 10:44 Dose: 1 drop PHYSICAL EXAMINATION Vital Signs Period Temp Pulse Resp BP Sys/Lewis Pulse Ox Last 24 Hr 98.4 F-103.3 F 101-125 18-20 96-132/45-81 93 GENERAL:awake, alert, interactive, follows basic commands HEAD: NC/AT EYES: EOMI, MICA , sclera anicteric ENT: moist mucous membrane NECK: Supple, no JVD, obese LUNGS: CTA B/L, no crackles no wheezing no accessory muscle use. HEART: RRR, NSR, normal s1, s2, murmur no M/R/G ABDOMEN: Obese ,Soft, ND, NT, +BS 4 Q, no CVA Tenderness LOWER EXTREMITIES: no edema, +2DP pulse, NEUROLOGICAL: Awake, alert, but not fully oriented, moving all extremities, not aggresive, sensory intact, gait deferred CBCD WBC 9.0 K/mm3 (4.0-10.0) 10/17/18 06:00 RBC 4.80 M/mm3 (3.60-5.2) 10/17/18 06:00 Hgb 12.2 GM/dL (10.7-15.3) 10/17/18 06:00 Hct 36.8 % (32.4-45.2) 10/17/18 06:00 MCV 76.7 fl (80-96) L 10/17/18 06:00 MCHC 33.2 g/dl (32.0-36.0) 10/17/18 06:00 RDW 18.3 % (11.6-15.6) H 10/17/18 06:00 Plt Count 230 K/MM3 (134-434) 10/17/18 06:00 MPV 8.6 fl (7.5-11.1) 10/17/18 06:00 CMP Sodium 145 mmol/L (136-145) 10/17/18 06:00 Potassium 3.5 mmol/L (3.5-5.1) 10/17/18 06:00 Chloride 112 mmol/L (98-107) H 10/17/18 06:00 Carbon Dioxide 26 mmol/L (21-32) 10/17/18 06:00 Anion Gap 7 MMOL/L (8-16) L 10/17/18 06:00 BUN 16 mg/dL (7-18) 10/17/18 06:00 Creatinine 1.2 mg/dL (0.55-1.3) 10/17/18 06:00 Creat Clearance w eGFR 46.30 (>60) 10/17/18 06:00 Random Glucose 104 mg/dL (74-106) 10/17/18 06:00 Calcium 7.6 mg/dL (8.5-10.1) L 10/17/18 06:00 Total Bilirubin 0.3 mg/dL (0.2-1) 10/17/18 06:00 AST 13 U/L (15-37) L 10/17/18 06:00 ALT 21 U/L (13-61) 10/17/18 06:00 Alkaline Phosphatase 71 U/L (45-117) 10/17/18 06:00 Total Protein 5.4 g/dl (6.4-8.2) L 10/17/18 06:00 Albumin 2.4 g/dl (3.4-5.0) L 10/17/18 06:00 CARDIAC ENZYMES Creatine Kinase 347 U/L (26-192) H 10/16/18 07:00 Troponin I 0.03 ng/ml (0.00-0.05) 10/13/18 06:17 ASSESSMENT/PLAN: 58 year old female with a significant past medical history of R sided hemorrhagic stroke with complex partial seizures as a result, HTN, HLD, who presented to the ED with complaints of reportedly seizure like episode that occured 1.5 hours prior to ED arrival. As per patient's family at bedside patient stated that she felt her seizure coming on. According to notes, family reported her legs were shaking. EMS reports giving 5 versed IV in the field. Seizures resolved at that time. Family reported no trauma, fevers, chills. Per med recon, she is on trileptal 150 mg BID. Was contacted by ER overnight and patient reportedly with seizure event in ED, reportedly given Ativan. CT head completed and without acute changes, labs reviewed. Appreciate coverage over the weekend. Patient improved and more awake, alert, interactive, though did not know date, location, name of President initally and had to be told this information. EEG reviewed and demonstrated evidence of encephalopathy but no abnormal epileptiform activity. Spinal tap attempted but patient uncooperative. Has been on broad spectrum Abx. Trileptal also increased to 300mg. Agree with MRI brain. Remains under restraints at this time but more calm and cooperative. Consider re-attempt LP under fluoro if IR amenable. Maintain adequate hydration , continued improvement with ABx and hydration. Monitor BP, maintain normotensive range, continue antiHTN medications. Needs re-orientation though is improving.
[2018-10-17] MEDS ORDERED: PT OWN MED DRAWER 7, Y5N ONE ×4 (09:29→22:04)
[2018-10-17] MEDS: METOPROLOL TARTRATE 50 MG TABLET (FP) PO SCH ×2 (09:36→22:02)
[2018-10-17] MEDS: D5-1/2NS+20 MEQ KCL - 20 MEQ/1,000 ML INFUS.BAG IV SCH (09:36)
[2018-10-17] MEDS: OXcarbazepine 300 MG/5 ML 250 ML BULK BOTTLE PO SCH ×2 (09:37→22:02)
--- NOTE | 2018-10-17 10:53 | PN ---
Teaching Attending Note Name of Resident: Teresita Benedict ATTENDING PHYSICIAN STATEMENT I saw and evaluated the patient. I reviewed the resident's note and discussed the case with the resident. I agree with the resident's findings and plan as documented with exceptions below. SUBJECTIVE: Patient seen and examined. awake, knows is in the hospital, is October 17, thought was 1919. Denies any pain or complaints. Aware had seizure and sees Dr. Mcrae. OBJECTIVE: Vital Signs Period Temp Pulse Resp BP Sys/Lewis Pulse Ox Last 24 Hr 97.9 F-99.2 F 86-112 16-18 129-160/83-101 99 Intake & Output 10/14/18 10/15/18 10/16/18 10/17/18 23:59 23:59 23:59 23:59 Intake Total 2653 3320 5295 912 Output Total 750 1950 2100 Balance 1903 1370 3195 912 Weight 280 lb General: sitting in bed, awake, pleasant, intermittently confused Neck: soft, supple, no JVD Chest: Decreased effort but no rales or wheezing Abdomen:Soft, obese, NT Extremities: no edema Neuro: AA, oriented to self, knows is in the hospital, knew was October 17 but felt was , occasionally tangential, knows had a seizure and sees Dr. Mcrae and needs a spinal tap that has been discussed by her family yesterday, PERRL, EOMI, tongue midline, moves all extremities freely, goes on tangent during sensory exam. Home Medications Medication Instructions Recorded Aspirin [ASA -] 81 mg PO DAILY 12/29/15 Metoprolol Tartrate [Lopressor -] 50 mg PO BID #60 tab 10/26/17 Nifedipine [Procardia Xl] 60 mg PO DAILY #30 tab 10/26/17 Oxcarbazepine 150 mg PO BID #60 tablet 10/26/17 Timolol 0.5% [Timoptic 0.5%] 1 drop OU DAILY #1 bottle 10/26/17 Hydrochlorothiazide [Hctz -] 25 mg PO DAILY 08/09/18 Active Medications Acetaminophen (Ofirmev Injection -) 1,000 mg IVPB Q6H PRN PRN Reason: FEVER Last Admin: 10/15/18 02:24 Dose: 1,000 mg Acyclovir 1,000 mg/ Dextrose 270 mls @ 135 mls/hr IVPB Q12H [facility] Last Admin: 10/16/18 22:38 Dose: 135 mls/hr Ceftriaxone Sodium 2 gm/ (Dextrose) 100 mls @ 100 mls/hr IVPB BID@0600,1800 [facility] ; Protocol Last Admin: 10/17/18 05:23 Dose: 100 mls/hr Potassium Chloride/Dextrose/Sod Cl (D5-1/2ns+20 Meq Kcl -) 20 meq in 1,000 mls @ 125 mls/hr IV ASDIR [facility] Last Admin: 10/17/18 09:36 Dose: 125 mls/hr Metoprolol Tartrate (Lopressor -) 50 mg PO BID [facility] Last Admin: 10/17/18 09:36 Dose: 50 mg Ofloxacin (Ocuflox 0.3% Eye Drops -) 1 drop OU Q4HWA [facility] Last Admin: 10/17/18 09:37 Dose: 1 drop Oxcarbazepine (Trileptal) 300 mg PO BID [facility] Last Admin: 10/17/18 09:37 Dose: 300 mg Timolol Maleate (Timoptic 0.5%) 1 drop OU DAILY [facility] Last Admin: 10/16/18 10:44 Dose: 1 drop Laboratory Results - last 24 hr 10/13/18 10/16/18 10/17/18 08:25 11:42 06:00 WBC 9.0 RBC 4.80 Hgb 12.2 Hct 36.8 MCV 76.7 L MCH 25.5 L MCHC 33.2 RDW 18.3 H Plt Count 230 MPV 8.6 Absolute Neuts (auto) 6.4 Neutrophils % 71.3 Lymphocytes % 12.8 D Monocytes % 7.6 D Eosinophils % 8.2 H Basophils % 0.1 Nucleated RBC % 0 Sodium Potassium Chloride Carbon Dioxide Anion Gap BUN Creatinine Creat Clearance w eGFR POC Glucometer 110 Random Glucose Calcium Total Bilirubin AST ALT Alkaline Phosphatase Total Protein Albumin Oxcarbazepine None detected 10/17/18 06:00 WBC RBC Hgb Hct MCV MCH MCHC RDW Plt Count MPV Absolute Neuts (auto) Neutrophils % Lymphocytes % Monocytes % Eosinophils % Basophils % Nucleated RBC % Sodium 145 Potassium 3.5 Chloride 112 H Carbon Dioxide 26 Anion Gap 7 L BUN 16 Creatinine 1.2 Creat Clearance w eGFR 46.30 POC Glucometer Random Glucose 104 Calcium 7.6 L Total Bilirubin 0.3 AST 13 L ALT 21 Alkaline Phosphatase 71 Total Protein 5.4 L Albumin 2.4 L Oxcarbazepine Microbiology 10/13/18 20:15 Blood - Peripheral Venous Blood Culture - Preliminary NO GROWTH OBTAINED AFTER 72 HOURS, INCUBATION TO CONTINUE FOR 2 DAYS. 10/13/18 18:30 Blood - Peripheral Venous Blood Culture - Preliminary NO GROWTH OBTAINED AFTER 72 HOURS, INCUBATION TO CONTINUE FOR 2 DAYS. 10/15/18 16:45 Urine For Antigen Detection Legionella Antigen - Final 10/15/18 16:45 Urine For Antigen Detection Streptococcus pneumoniae Antigen (M - Final 10/13/18 16:00 Urine - Urine - Catheterized Urine Culture - Final NO GROWTH OBTAINED ASSESSMENT AND PLAN: 58 yof with PMhx of R haemorrhagic stroke, complex partial seizure disorder due to the same, HTN, HLD admitted with witnessed seizure -Sepsis,? Left basilar Aspiration PNAfrom seizure/medications, r/o meningitis/ encephalatis, however lower on suspicion today -RAMYA, from hypovolumi/ATN from sepsis/poor oral intake, vs medication induced vs rhabdomyolysis, no evidence of obstruction -Witnessed seizure -Encephalopathy, infection vs seizure vs post ictal vs from meds -Left conjunctivitis -Hypokalemia -Hypernatremia, suspect hypovoumic with ongoing NS repletion. -H/o right sided haemorrhagic stroke -HTN -HLD Plan: Fevers resolved. Mental status continues to improve. onset fevers inhouse post seizure and sedating meds, ?aspiration. CT chest/A/P results noted. CXR ?new left basilar infiltrate Unable to do LP with IR given lack of co-operation. Neurology input noted, Discussed with IR to re-attempt LP, will follow up. Patient agreeable to co-oeprate with procedure. Would avoid ativan for now. On ceftriaxone/acyclovir, vanco dced . Taper per ID. Blood cx neg so far. Ofloxacin eye drops EEG result noted, abnormal but no epileptiform waves. Increased carbamazepine to 300 mg BID per neuro recs, continue, seizure precautions. Cleared bedside swallow eval, soft diet with aspiration precautions. Continue IVF D5-1/2NS with K. Additional K po. Nephrology input noted. Renal/bladder US with no concerns. Continue IVF, avoid nephrotoxins and monitor. CPK down. Cr improved. MRI brain based on clinical course,patient unlikely to co-operate fully currently. hold nifedipine/HCTZ. Increase metoprolol to home dose 50 mg BID. DVTPPX Hold heparin pending possible LP/intervention Dispo pending clinical improvement. Plan discussed with patient, nursing,in detail, all questions answered. Care co-ordinated with Neurology, IR.
[2018-10-17 11:37] LABS: ANISOCYTOSIS 1+; MACROCYTOSIS 0; PLATELET ESTIMATE NORMAL
[2018-10-17] MEDS: TIMOLOL 0.5% OPHTHALMIC SOL 5 ML BOTTLE OU SCH (12:40)
[2018-10-17] MEDS: ACYCLOVIR INJECTION 1,000 MG in DEXTROSE 5%-WATER - 250 ML IVPB SCH ×2 (12:40→23:05)
--- NOTE | 2018-10-17 13:17 | PN ---
Physical Exam: SUBJECTIVE: Patient seen and examined, more alert today; answering questions; still rambles in tangents; in restraints trying to pull out IVS. Afebrile, white count wnl; OBJECTIVE: Vital Signs Period Temp Pulse Resp BP Sys/Lewis Pulse Ox Last 24 Hr 97.9 F-99.2 F 86-112 16-18 129-160/83-101 99 GENERAL: The patient is obese; awake, alert, trying to get out of bed NECK: no pain with forward flexion of head LUNGS: Breath sounds equal, clear to auscultation bilaterally, no wheezes, no crackles, no accessory muscle use. HEART: Regular rate and rhythm, S1, S2 without murmur, rub or gallop. ABDOMEN:obese; BS + EXTREMITIES: 2+ pulses, warm, well-perfused, no edema. NEUROLOGICAL:more awake now alert; mental status still not at baseline; is aggressive and rambles Laboratory Results - last 24 hr 10/13/18 10/17/18 10/17/18 08:25 06:00 06:00 WBC 9.0 RBC 4.80 Hgb 12.2 Hct 36.8 MCV 76.7 L MCH 25.5 L MCHC 33.2 RDW 18.3 H Plt Count 230 MPV 8.6 Absolute Neuts (auto) 6.4 Neutrophils % 71.3 Neutrophils % (Manual) 74.3 Band Neutrophils % 0.0 Lymphocytes % 12.8 D Lymphocytes % (Manual) 8.9 D Monocytes % 7.6 D Monocytes % (Manual) 5 D Eosinophils % 8.2 H Eosinophils % (Manual) 9.9 H D Basophils % 0.1 Basophils % (Manual) 0.0 Myelocytes % (Man) 0 Promyelocytes % (Man) 0 Blast Cells % (Manual) 0 Nucleated RBC % 0 Metamyelocytes 2 D Hypochromia 0 Platelet Estimate Normal Polychromasia 0 Poikilocytosis 0 Anisocytosis 1+ Microcytosis 2+ Macrocytosis 0 Sodium 145 Potassium 3.5 Chloride 112 H Carbon Dioxide 26 Anion Gap 7 L BUN 16 Creatinine 1.2 Creat Clearance w eGFR 46.30 Random Glucose 104 Calcium 7.6 L Total Bilirubin 0.3 AST 13 L ALT 21 Alkaline Phosphatase 71 Total Protein 5.4 L Albumin 2.4 L Oxcarbazepine None detected Active Medications Generic Name Dose Route Start Last Admin Trade Name Freq PRN Reason Stop Dose Admin Acetaminophen 1,000 mg 10/13/18 17:11 10/15/18 02:24 Ofirmev Injection - IVPB 1,000 mg Q6H PRN Administration FEVER Acyclovir 1,000 mg/ Dextrose 270 mls @ 135 mls/hr 10/14/18 11:30 10/17/18 12: 40 IVPB 135 mls/hr Q12H [facility] Administration Ceftriaxone Sodium 2 gm/ 100 mls @ 100 mls/hr 10/14/18 18:30 10/17/18 05:23 Dextrose IVPB 100 mls/hr BID@0600,1800 [facility] Administration Protocol Potassium Chloride/Dextrose/Sod Cl 20 meq in 1,000 mls @ 125 mls/hr 10/16/18 08:45 10/17/18 09:36 D5-1/2ns+20 Meq Kcl - IV 125 mls/hr ASDIR [facility] Administration Metoprolol Tartrate 50 mg 10/17/18 10:00 10/17/18 09:36 Lopressor - PO 50 mg BID [facility] Administration Ofloxacin 1 drop 10/15/18 22:00 10/17/18 09:37 Ocuflox 0.3% Eye Drops - OU 1 drop Q4HWA [facility] Administration Oxcarbazepine 300 mg 10/16/18 10:00 10/17/18 09:37 Trileptal PO 300 mg BID [facility] Administration Timolol Maleate 1 drop 10/13/18 10:00 10/17/18 12:40 Timoptic 0.5% OU 1 drop DAILY [facility] Administration ASSESSMENT/PLAN: This is a 58 year old female HTN, HLD, 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 Has not returned to baseline since admission. #Severe Sepsis; etiology currently unknown; -LP not done; patient non cooperative; -antibiotics for meningitis and HSV -IV ceftriaxone /IV acyclovir -ct chest, abdomen/pelvis; negative for acute infectious process -eeg reading negative for seizure -neuro /ID recs #Acute kidney injury; improved -normal cr baseline -IVF hydration -renal recs #Epilepsy: -seen by neurology ; increased home trileptal to 300mg bid -eeg #HTN: -cont HCTZ; procardia xl Diet when not lethargic VTE ppl; heparin sq GI ppl : protonix Disposition: tele Visit type - Emergency Visit Emergency Visit: Yes ED Registration Date: 10/13/18 Care time: The patient presented to the Emergency Department on the above date and was hospitalized for further evaluation of their emergent condition. - New Patient This patient is new to me today: No - Critical Care Critical Care patient: No
--- NOTE | 2018-10-17 17:17 | PN ---
Progress Note, Physician History of Present Illness: AWAKE, ALERT ORIENTED TO PERSON/PLACE/ TIME TEMPS DOWN AFEBRILE WBC DOWN AZOTEMIA IMRPOVED LP PENDING - Current Medication List Current Medications: Active Medications Acetaminophen (Ofirmev Injection -) 1,000 mg IVPB Q6H PRN PRN Reason: FEVER Last Admin: 10/15/18 02:24 Dose: 1,000 mg Acyclovir 1,000 mg/ Dextrose 270 mls @ 135 mls/hr IVPB Q12H [facility] Last Admin: 10/17/18 12:40 Dose: 135 mls/hr Ceftriaxone Sodium 2 gm/ (Dextrose) 100 mls @ 100 mls/hr IVPB BID@0600,1800 [facility] ; Protocol Last Admin: 10/17/18 05:23 Dose: 100 mls/hr Potassium Chloride/Dextrose/Sod Cl (D5-1/2ns+20 Meq Kcl -) 20 meq in 1,000 mls @ 125 mls/hr IV ASDIR [facility] Last Admin: 10/17/18 09:36 Dose: 125 mls/hr Metoprolol Tartrate (Lopressor -) 50 mg PO BID [facility] Last Admin: 10/17/18 09:36 Dose: 50 mg Ofloxacin (Ocuflox 0.3% Eye Drops -) 1 drop OU Q4HWA [facility] Last Admin: 10/17/18 13:42 Dose: Not Given Oxcarbazepine (Trileptal) 300 mg PO BID [facility] Last Admin: 10/17/18 09:37 Dose: 300 mg Timolol Maleate (Timoptic 0.5%) 1 drop OU DAILY [facility] Last Admin: 10/17/18 12:40 Dose: 1 drop - Objective Vital Signs: Vital Signs Temperature 98.3 F 10/17/18 15:18 Pulse Rate 89 10/17/18 15:18 Respiratory Rate 18 10/17/18 15:18 Blood Pressure 132/82 10/17/18 15:18 O2 Sat by Pulse Oximetry (%) 99 10/16/18 21:00 Constitutional: Yes: Obese Cardiovascular: Yes: Regular Rate and Rhythm, S1, S2 Respiratory: Yes: CTA Bilaterally Gastrointestinal: Yes: Normal Bowel Sounds, Soft Labs: CBC, BMP 10/17/18 06:00 10/17/18 06:00 INR, PTT INR 1.04 (0.83-1.09) 10/13/18 08:25 Assessment/Plan ALTERED MENTAL STATUS-IMPROVED R/O MENINGITIS FEVER/ LEUKOCYTOSIS-IMPROVED AZOTEMIA-IMPROVED CONTINUE EMPIRIC CEFTRIAXONE/ACV
[2018-10-17 20:47] LABS: CSF APPEARANCE CLEAR; CSF COLOR COLORLESS
[2018-10-17 20:48] LABS: CSF WBC 5
[2018-10-17 22:12] LABS: BF GLUCOSE (CSF ONLY) 58 mg/dL (40-70)
[2018-10-18] MEDS: D5-1/2NS+20 MEQ KCL - 20 MEQ/1,000 ML INFUS.BAG IV SCH ×3 (04:31→21:33)
[2018-10-18] MEDS ORDERED: ALBUTEROL SO4 2.5/IPRATROPIUM 0.5 INH SOL 3 ML VIAL.NEB. NEB ONE (05:21)
[2018-10-18] MEDS ORDERED: DEXTROSE 5%-WATER 100 ML IVPB ONE ×2 (05:32→18:11)
[2018-10-18] MEDS: CEFTRIAXONE 2 GM in DEXTROSE 5%-WATER 100 ML IVPB SCH ×2 (05:51→18:15)
[2018-10-18] MEDS: OFLOXACIN 0.3% OPHTHALMIC SOLUTION 5 ML BOTTLE OU SCH ×5 (05:52→21:34)
[2018-10-18] MEDS ORDERED: D5-1/2NS+20 MEQ KCL - 20 MEQ/1,000 ML INFUS.BAG IV SCH (07:59)
[2018-10-18 08:12] LABS: ANION GAP 9 MMOL/L (8-16); BLOOD UREA NITROGEN 11 mg/dL (7-18); CALCIUM 8.4 mg/dL (8.5-10.1); CHLORIDE 108 mmol/L (98-107); CO2 24 mmol/L (21-32); CREATININE 1.1 mg/dL (0.55-1.3); GLUCOSE,RANDOM 95 mg/dL (74-106); MAGNESIUM 1.8 mg/dL (1.8-2.4); PHOSPHOROUS 2.4 mg/dL (2.5-4.9); POTASSIUM 3.5 mmol/L (3.5-5.1); SODIUM 140 mmol/L (136-145)
--- NOTE | 2018-10-18 08:55 | PN ---
Progress Note (short form) - Note Progress Note: Neurology CHIEF COMPLAINT: seizure HISTORY OF PRESENT ILLNESS: 58 year old female with a significant past medical history of R sided hemorrhagic stroke with complex partial seizures as a result, HTN, HLD, who presented to the ED with complaints of reportedly seizure like episode that occured 1.5 hours prior to ED arrival. As per patient's family at bedside patient stated that she felt her seizure coming on. According to notes, family reported her legs were shaking. EMS reports giving 5 versed IV in the field. Seizures resolved at that time. Family reported no trauma, fevers, chills. Per med recon, she is on trileptal 150 mg BID. Was contacted by ER overnight and patient reportedly with seizure event in ED, reportedly given Ativan. CT head completed and without acute changes, labs reviewed. EEG reviewed and demonstrated evidence of encephalopathy but no abnormal epileptiform activity. Appreciate coverage over the weekend. Patient much improved now awake, alert, interactive, knows date, location, name of President and recognizes me. Spinal tap completed and with 5 wbc, 7rbc, increased protein to 90, glucose normal. Has been on broad spectrum Abx with improvement in mental status. Bun/Cr normalized. Trileptal also increased to 300mg. Awaiting MRI brain. More calm and cooperative. Active Medications Acetaminophen (Ofirmev Injection -) 1,000 mg IVPB Q6H PRN PRN Reason: FEVER Last Admin: 10/15/18 02:24 Dose: 1,000 mg Acyclovir 1,000 mg/ Dextrose 270 mls @ 135 mls/hr IVPB Q12H [facility] Last Admin: 10/17/18 23:05 Dose: 135 mls/hr Ceftriaxone Sodium 2 gm/ (Dextrose) 100 mls @ 100 mls/hr IVPB BID@0600,1800 [facility] ; Protocol Last Admin: 10/18/18 05:51 Dose: 100 mls/hr Potassium Chloride/Dextrose/Sod Cl (D5-1/2ns+20 Meq Kcl -) 20 meq in 1,000 mls @ 100 mls/hr IV ASDIR [facility] Metoprolol Tartrate (Lopressor -) 50 mg PO BID [facility] Last Admin: 10/17/18 22:02 Dose: 50 mg Ofloxacin (Ocuflox 0.3% Eye Drops -) 1 drop OU Q4HWA [facility] Last Admin: 10/18/18 05:52 Dose: 1 drop Oxcarbazepine (Trileptal) 300 mg PO BID [facility] Last Admin: 10/17/18 22:02 Dose: 300 mg Timolol Maleate (Timoptic 0.5%) 1 drop OU DAILY [facility] Last Admin: 10/17/18 12:40 Dose: 1 drop PHYSICAL EXAMINATION Vital Signs Temperature 98.9 F 10/18/18 06:00 Pulse Rate 93 H 10/18/18 06:00 Respiratory Rate 20 10/18/18 06:00 Blood Pressure 162/89 10/18/18 06:00 O2 Sat by Pulse Oximetry (%) 96 10/17/18 21:00 GENERAL:awake, alert, interactive, follows basic commands HEAD: NC/AT EYES: EOMI, MICA , sclera anicteric ENT: moist mucous membrane NECK: Supple, no JVD, obese LUNGS: CTA B/L, no crackles no wheezing no accessory muscle use. HEART: RRR, NSR, normal s1, s2, murmur no M/R/G ABDOMEN: Obese ,Soft, ND, NT, +BS 4 Q, no CVA Tenderness LOWER EXTREMITIES: no edema, +2DP pulse, NEUROLOGICAL: Awake, alert, but not fully oriented, moving all extremities, not aggresive, sensory intact, gait deferred CBCD WBC 9.0 K/mm3 (4.0-10.0) 10/17/18 06:00 RBC 4.80 M/mm3 (3.60-5.2) 10/17/18 06:00 Hgb 12.2 GM/dL (10.7-15.3) 10/17/18 06:00 Hct 36.8 % (32.4-45.2) 10/17/18 06:00 MCV 76.7 fl (80-96) L 10/17/18 06:00 MCHC 33.2 g/dl (32.0-36.0) 10/17/18 06:00 RDW 18.3 % (11.6-15.6) H 10/17/18 06:00 Plt Count 230 K/MM3 (134-434) 10/17/18 06:00 MPV 8.6 fl (7.5-11.1) 10/17/18 06:00 CMP Sodium 140 mmol/L (136-145) 10/18/18 06:00 Potassium 3.5 mmol/L (3.5-5.1) 10/18/18 06:00 Chloride 108 mmol/L (98-107) H 10/18/18 06:00 Carbon Dioxide 24 mmol/L (21-32) 10/18/18 06:00 Anion Gap 9 MMOL/L (8-16) 10/18/18 06:00 BUN 11 mg/dL (7-18) 10/18/18 06:00 Creatinine 1.1 mg/dL (0.55-1.3) 10/18/18 06:00 Creat Clearance w eGFR 51.20 (>60) 10/18/18 06:00 Random Glucose 95 mg/dL (74-106) 10/18/18 06:00 Calcium 8.4 mg/dL (8.5-10.1) L 10/18/18 06:00 Total Bilirubin 0.3 mg/dL (0.2-1) 10/17/18 06:00 AST 13 U/L (15-37) L 10/17/18 06:00 ALT 21 U/L (13-61) 10/17/18 06:00 Alkaline Phosphatase 71 U/L (45-117) 10/17/18 06:00 Total Protein 5.4 g/dl (6.4-8.2) L 10/17/18 06:00 Albumin 2.4 g/dl (3.4-5.0) L 10/17/18 06:00 CARDIAC ENZYMES Creatine Kinase 347 U/L (26-192) H 10/16/18 07:00 Troponin I 0.03 ng/ml (0.00-0.05) 10/13/18 06:17 ASSESSMENT/PLAN: 58 year old female with a significant past medical history of R sided hemorrhagic stroke with complex partial seizures as a result, HTN, HLD, who presented to the ED with complaints of reportedly seizure like episode that occured 1.5 hours prior to ED arrival. As per patient's family at bedside patient stated that she felt her seizure coming on. According to notes, family reported her legs were shaking. EMS reports giving 5 versed IV in the field. Seizures resolved at that time. Family reported no trauma, fevers, chills. Per med recon, she is on trileptal 150 mg BID. Was contacted by ER overnight and patient reportedly with seizure event in ED, reportedly given Ativan. CT head completed and without acute changes, labs reviewed. Appreciate coverage over the weekend. Patient much improved and near baseline mental status. Spinal tap completed and with 5 wbc, 7rbc, increased protein to 90, glucose normal. Has been on broad spectrum Abx. Trileptal also increased to 300mg. Awaiting MRI brain, would still suggest completion though she is much improved. More calm and cooperative. Maintain adequate hydration, continued improvement with ABx and hydration. Follow up ID rec'd. Monitor BP, maintain normotensive range, continue antiHTN medications. Needs re-orientation though is improving.
[2018-10-18 08:59] LABS: BASO % 0.1 % (0-2.0); EOS % 5.7 % (0-4.5); HEMATOCRIT 37.3 % (32.4-45.2); LYMPH % 18.4 % (8-40); MCH 24.3 pg (25.7-33.7); MCHC 32.2 g/dl (32.0-36.0); MEAN CELL VOLUME 75.6 fl (80-96); MEAN PLT VOLUME 9.3 fl (7.5-11.1); MONO % 11.5 % (3.8-10.2); NEUT % 64.3 % (42.8-82.8); PLATELET COUNT 254 K/MM3 (134-434); RBC 4.93 M/mm3 (3.60-5.2); RDW 17.9 % (11.6-15.6); WHITE BLOOD COUNT 11.4 K/mm3 (4.0-10.0)
--- NOTE | 2018-10-18 09:06 | PN ---
Teaching Attending Note Name of Resident: Teresita Benedict ATTENDING PHYSICIAN STATEMENT I saw and evaluated the patient. I reviewed the resident's note and discussed the case with the resident. I agree with the resident's findings and plan as documented with exceptions below. SUBJECTIVE: patient seen and examined. asleep, arousable, minimal responses as waking up, intially thought was at home. More awake by the end of the interview but not full co-operative. OBJECTIVE: Vital Signs Period Temp Pulse Resp BP Sys/Lewis Pulse Ox Last 24 Hr 97.9 F-98.9 F 83-93 18-20 132-162/82-92 96 Intake & Output 10/15/18 10/16/18 10/17/18 10/18/18 23:59 23:59 23:59 23:59 Intake Total 3320 5295 3207 850 Output Total 1950 2100 600 900 Balance 1370 3195 2607 -50 Weight 280 lb General: asleep, arousable, mild audible wheezing Chest scattered wheezing Abdomen:Soft obese Extremities : no edema, Neuro: asleep, arousable, waking up by the end of the visit, facial symmetry, moves all extremities, further exam limited currently Home Medications Medication Instructions Recorded Aspirin [ASA -] 81 mg PO DAILY 12/29/15 Metoprolol Tartrate [Lopressor -] 50 mg PO BID #60 tab 10/26/17 Nifedipine [Procardia Xl] 60 mg PO DAILY #30 tab 10/26/17 Oxcarbazepine 150 mg PO BID #60 tablet 10/26/17 Timolol 0.5% [Timoptic 0.5%] 1 drop OU DAILY #1 bottle 10/26/17 Hydrochlorothiazide [Hctz -] 25 mg PO DAILY 08/09/18 Active Medications Acetaminophen (Ofirmev Injection -) 1,000 mg IVPB Q6H PRN PRN Reason: FEVER Last Admin: 10/15/18 02:24 Dose: 1,000 mg Acyclovir 1,000 mg/ Dextrose 270 mls @ 135 mls/hr IVPB Q12H [facility] Last Admin: 10/17/18 23:05 Dose: 135 mls/hr Ceftriaxone Sodium 2 gm/ (Dextrose) 100 mls @ 100 mls/hr IVPB BID@0600,1800 [facility] ; Protocol Last Admin: 10/18/18 05:51 Dose: 100 mls/hr Potassium Chloride/Dextrose/Sod Cl (D5-1/2ns+20 Meq Kcl -) 20 meq in 1,000 mls @ 100 mls/hr IV ASDIR [facility] Metoprolol Tartrate (Lopressor -) 50 mg PO BID [facility] Last Admin: 10/17/18 22:02 Dose: 50 mg Ofloxacin (Ocuflox 0.3% Eye Drops -) 1 drop OU Q4HWA [facility] Last Admin: 10/18/18 05:52 Dose: 1 drop Oxcarbazepine (Trileptal) 300 mg PO BID [facility] Last Admin: 10/17/18 22:02 Dose: 300 mg Timolol Maleate (Timoptic 0.5%) 1 drop OU DAILY [facility] Last Admin: 10/17/18 12:40 Dose: 1 drop Laboratory Results - last 24 hr 10/17/18 10/17/18 10/18/18 06:00 13:50 06:00 Neutrophils % (Manual) 74.3 Band Neutrophils % 0.0 Lymphocytes % (Manual) 8.9 D Monocytes % (Manual) 5 D Eosinophils % (Manual) 9.9 H D Basophils % (Manual) 0.0 Myelocytes % (Man) 0 Promyelocytes % (Man) 0 Blast Cells % (Manual) 0 Metamyelocytes 2 D Hypochromia 0 Platelet Estimate Normal Polychromasia 0 Poikilocytosis 0 Anisocytosis 1+ Microcytosis 2+ Macrocytosis 0 Sodium 140 Potassium 3.5 Chloride 108 H Carbon Dioxide 24 Anion Gap 9 BUN 11 Creatinine 1.1 Creat Clearance w eGFR 51.20 Random Glucose 95 Calcium 8.4 L Phosphorus 2.4 L Magnesium 1.8 CSF Appearance Clear CSF Color Colorless CSF WBC 5 CSF RBC 7 CSF Neutrophils No Result Required. CSF Lymphocytes No Result Required. CSF Eosinophils No Result Required. CSF Basophils No Result Required. CSF Macrophages No Result Required. CSF Plasma Cells No Result Required. CSF Diff Comment No Result Required. CSF Comment No Result Required. CSF Glucose 58 CSF Total Protein 90 H Microbiology 10/13/18 20:15 Blood - Peripheral Venous Blood Culture - Preliminary NO GROWTH OBTAINED AFTER 96 HOURS, INCUBATION TO CONTINUE FOR 1 DAYS. 10/13/18 18:30 Blood - Peripheral Venous Blood Culture - Preliminary NO GROWTH OBTAINED AFTER 96 HOURS, INCUBATION TO CONTINUE FOR 1 DAYS. 10/15/18 16:45 Urine For Antigen Detection Legionella Antigen - Final 10/15/18 16:45 Urine For Antigen Detection Streptococcus pneumoniae Antigen (M - Final 10/13/18 16:00 Urine - Urine - Catheterized Urine Culture - Final NO GROWTH OBTAINED ASSESSMENT AND PLAN: 58 yof with PMhx of R haemorrhagic stroke, complex partial seizure disorder due to the same, HTN, HLD admitted with witnessed seizure, course complicated by fevers, AMS. -Sepsis,? Left basilar Aspiration PNA from seizure/medications, r/o meningitis/ encephalatis -RAMYA, from hypovolumi/ATN from sepsis/poor oral intake, vs medication induced vs rhabdomyolysis, no evidence of obstruction -Witnessed seizure -Encephalopathy, infection vs seizure vs post ictal vs from meds -Left conjunctivitis -Hypokalemia -Hypernatremia, suspect hypovoumic with ongoing NS repletion,improved. -H/o right sided haemorrhagic stroke -HTN -HLD Plan: Fevers resolved. Mental status continues to improve. Second IR attempt LP successful yesterday. Follow up studies. Fevers post seizures inhouse, aspiration still on differential. CT chest/A/P results noted. CXR ?new left basilar infiltrate On ceftriaxone/acyclovir, vanco dced . d/c acyclovir if CSF HSV neg. Blood cx neg so far. Overall mental status improved. Avoid ativan for now. EEG result noted, abnormal but no epileptiform waves. MRI brain based on clinical course Increased carbamazepine to 300 mg BID per neuro recs, continue, seizure precautions. Wheezing today. CXR, decrease IVF, nebs prn. Needs ongoing IVF given recent RAMYA and on acyclovir. Ofloxacin eye drops Cleared bedside swallow eval, soft diet with aspiration precautions. Nephrology input noted. Renal/bladder US with no concerns. Continue IVF, avoid nephrotoxins and monitor. CPK down. Cr improved. Continue metoprolol. Resume nifedipine, hold HCTZ DVTPPX start heparin DVTPPX (on hold for LP) Dispo pending clinical improvement. OOB, PT eval and dispo planning. Plan discussed with nursing, all questions answered.
[2018-10-18] MEDS: TIMOLOL 0.5% OPHTHALMIC SOL 5 ML BOTTLE OU SCH (10:23)
[2018-10-18] MEDS: NIFEdipine E.R 60 MG TABLET (UD) PO SCH (10:23)
[2018-10-18] MEDS: METOPROLOL TARTRATE 50 MG TABLET (FP) PO SCH ×2 (10:23→22:11)
[2018-10-18] MEDS: OXcarbazepine 300 MG/5 ML 250 ML BULK BOTTLE PO SCH ×2 (10:27→22:11)
[2018-10-18] MEDS: ACYCLOVIR INJECTION 1,000 MG in DEXTROSE 5%-WATER - 250 ML IVPB SCH ×2 (10:49→22:43)
[2018-10-18 11:02] LABS: ANISOCYTOSIS 1+; MACROCYTOSIS 0; PLATELET ESTIMATE NORMAL
[2018-10-18] MEDS ORDERED: ALBUTEROL SO4 0.083% IH SOL 2.5 MG/3 ML VIAL.NEB. NEB ONE (11:20)
--- NOTE | 2018-10-18 11:31 | PN ---
Physical Exam: SUBJECTIVE: Patient seen and examined; more alert today; but short of breath OBJECTIVE: Vital Signs Period Temp Pulse Resp BP Sys/Lewis Pulse Ox Last 24 Hr 97.9 F-98.9 F 83-93 18-20 132-162/82-92 96 GENERAL: The patient is obese awake, alert, short of breath LUNGS: b/l crackles; wheeze HEART: Regular rate and rhythm, S1, S2 without murmur, rub or gallop. ABDOMEN: Soft, nontender, nondistended, normoactive bowel sounds, no guarding, no rebound, no hepatosplenomegaly, no masses. EXTREMITIES: 2+ pulses, warm, well-perfused, no edema. NEUROLOGICAL: awake; does not follow commands; agitated; Laboratory Results - last 24 hr 10/17/18 10/17/18 10/18/18 06:00 13:50 06:00 WBC RBC Hgb Hct MCV MCH MCHC RDW Plt Count MPV Absolute Neuts (auto) Neutrophils % Neutrophils % (Manual) 74.3 Band Neutrophils % 0.0 Lymphocytes % Lymphocytes % (Manual) 8.9 D Monocytes % Monocytes % (Manual) 5 D Eosinophils % Eosinophils % (Manual) 9.9 H D Basophils % Basophils % (Manual) 0.0 Myelocytes % (Man) 0 Promyelocytes % (Man) 0 Blast Cells % (Manual) 0 Nucleated RBC % Metamyelocytes 2 D Hypochromia 0 Platelet Estimate Normal Polychromasia 0 Poikilocytosis 0 Anisocytosis 1+ Microcytosis 2+ Macrocytosis 0 Sodium 140 Potassium 3.5 Chloride 108 H Carbon Dioxide 24 Anion Gap 9 BUN 11 Creatinine 1.1 Creat Clearance w eGFR 51.20 Random Glucose 95 Calcium 8.4 L Phosphorus 2.4 L Magnesium 1.8 CSF Appearance Clear CSF Color Colorless CSF WBC 5 CSF RBC 7 CSF Neutrophils No Result Required. CSF Lymphocytes No Result Required. CSF Eosinophils No Result Required. CSF Basophils No Result Required. CSF Macrophages No Result Required. CSF Plasma Cells No Result Required. CSF Diff Comment No Result Required. CSF Comment No Result Required. CSF Glucose 58 CSF Total Protein 90 H 10/18/18 06:00 WBC 11.4 H RBC 4.93 Hgb 12.0 Hct 37.3 MCV 75.6 L MCH 24.3 L MCHC 32.2 RDW 17.9 H Plt Count 254 MPV 9.3 Absolute Neuts (auto) 7.3 Neutrophils % 64.3 Neutrophils % (Manual) Band Neutrophils % Lymphocytes % 18.4 D Lymphocytes % (Manual) Monocytes % 11.5 H Monocytes % (Manual) Eosinophils % 5.7 H Eosinophils % (Manual) Basophils % 0.1 Basophils % (Manual) Myelocytes % (Man) Promyelocytes % (Man) Blast Cells % (Manual) Nucleated RBC % 0 Metamyelocytes Hypochromia Platelet Estimate Polychromasia Poikilocytosis Anisocytosis Microcytosis Macrocytosis Sodium Potassium Chloride Carbon Dioxide Anion Gap BUN Creatinine Creat Clearance w eGFR Random Glucose Calcium Phosphorus Magnesium CSF Appearance CSF Color CSF WBC CSF RBC CSF Neutrophils CSF Lymphocytes CSF Eosinophils CSF Basophils CSF Macrophages CSF Plasma Cells CSF Diff Comment CSF Comment CSF Glucose CSF Total Protein Active Medications Generic Name Dose Route Start Last Admin Trade Name Freq PRN Reason Stop Dose Admin Acetaminophen 1,000 mg 10/13/18 17:11 10/15/18 02:24 Ofirmev Injection - IVPB 1,000 mg Q6H PRN Administration FEVER Albuterol Sulfate 1 amp 10/18/18 11:19 Ventolin 0.083% Nebulizer Soln - NEB Q4H PRN SHORT OF BREATH/WHEEZING Heparin Sodium (Porcine) 5,000 unit 10/18/18 14:00 Heparin - SQ TID [facility] Acyclovir 1,000 mg/ Dextrose 270 mls @ 135 mls/hr 10/14/18 11:30 10/18/18 10: 49 IVPB 135 mls/hr Q12H [facility] Administration Ceftriaxone Sodium 2 gm/ 100 mls @ 100 mls/hr 10/14/18 18:30 10/18/18 05:51 Dextrose IVPB 100 mls/hr BID@0600,1800 [facility] Administration Protocol Potassium Chloride/Dextrose/Sod Cl 20 meq in 1,000 mls @ 100 mls/hr 10/18/18 07:59 D5-1/2ns+20 Meq Kcl - IV ASDIR [facility] Metoprolol Tartrate 50 mg 10/17/18 10:00 10/18/18 10:23 Lopressor - PO 50 mg BID [facility] Administration Nifedipine 60 mg 10/18/18 10:00 10/18/18 10:23 Procardia Xl - PO 60 mg DAILY [facility] Administration Ofloxacin 1 drop 10/15/18 22:00 10/18/18 10:23 Ocuflox 0.3% Eye Drops - OU 1 drop Q4HWA [facility] Administration Oxcarbazepine 300 mg 10/16/18 10:00 10/18/18 10:27 Trileptal PO 300 mg BID [facility] Administration Timolol Maleate 1 drop 10/13/18 10:00 10/18/18 10:23 Timoptic 0.5% OU 1 drop DAILY [facility] Administration ASSESSMENT/PLAN: This is a 58 year old female HTN, HLD, 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 Altered mental status with fever and high white count after seizure episode. W/u for infectious/[employer] pathology. #Severe Sepsis; etiology currently unknown; -LP done;high protein ; HSV pending -cont empiric antibiotics for meningitis and HSV -IV ceftriaxone /IV acyclovir -ct chest, abdomen/pelvis; negative for acute infectious process -eeg reading negative for seizure -neuro /ID recs #sob ML sec to volume overload due to IVF; -stat cxr; -neb treatments -lower IVF #agitation?; possible psych component? need ot work up if infectious etiology is ruled out #Acute kidney injury; improved -normal cr baseline -IVF hydration -renal recs #Epilepsy: -seen by neurology ; increased home trileptal to 300mg bid -eeg #HTN: -cont HCTZ; procardia xl Diet when not lethargic VTE ppl; heparin sq GI ppl : protonix Disposition: tele Visit type - Emergency Visit Emergency Visit: Yes ED Registration Date: 10/13/18 Care time: The patient presented to the Emergency Department on the above date and was hospitalized for further evaluation of their emergent condition. - New Patient This patient is new to me today: No - Critical Care Critical Care patient: No
[2018-10-18] MEDS: ALBUTEROL SO4 0.083% IH SOL 2.5 MG/3 ML VIAL.NEB. NEB PRN ×3 (11:57→22:10)
[2018-10-18] MEDS ORDERED: FUROSEMIDE 40 MG/4 ML INJECTABLE VIAL IVPUSH ONE ×2 (13:10→18:58)
[2018-10-18] MEDS: HEPARIN NA (PORCINE) 5,000 UNITS/ML 1ML VIAL SQ SCH ×2 (13:26→22:10)
[2018-10-18] MEDS: ACETAMINOPHEN 1000 MG/100 ML VIAL (NON FORMULARY) IVPB PRN (13:31)
[2018-10-18 13:39] LABS: N-TERMINAL BNP 1925.8 pg/ml (5-125)
--- NOTE | 2018-10-18 14:55 | PN ---
Progress Note (short form) - Note Progress Note: Renal follow up for RAMYA Pt seen and examined at the bedside awake and alert denies any acute complaints no sob, cp, abd pain pt was noted to be wheezing by staff, given Nebs CXR shows central congestion Vital Signs Temperature 98.9 F 10/18/18 06:00 Pulse Rate 93 H 10/18/18 06:00 Respiratory Rate 20 10/18/18 06:00 Blood Pressure 162/89 10/18/18 06:00 O2 Sat by Pulse Oximetry (%) 96 10/17/18 21:00 Intake & Output 10/15/18 10/16/18 10/17/18 10/18/18 23:59 23:59 23:59 23:59 Intake Total 3320 5295 3207 850 Output Total 1950 2100 600 1600 Balance 1370 3195 2607 -750 Weight 127.006 kg NAD RRR, no M/R no rales soft NT/ND, Obese CBC, BMP 10/18/18 06:00 10/18/18 06:00 Current Medications Albuterol Sulfate (Ventolin 0.083% Nebulizer Soln -) 1 amp NEB Q4H PRN PRN Reason: SHORT OF BREATH/WHEEZING Last Admin: 10/18/18 11:57 Dose: 1 amp Heparin Sodium (Porcine) (Heparin -) 5,000 unit SQ TID [facility] Last Admin: 10/18/18 13:26 Dose: 5,000 unit Acyclovir 1,000 mg/ Dextrose 270 mls @ 135 mls/hr IVPB Q12H [facility] Last Admin: 10/18/18 10:49 Dose: 135 mls/hr Ceftriaxone Sodium 2 gm/ (Dextrose) 100 mls @ 100 mls/hr IVPB BID@0600,1800 [facility] ; Protocol Last Admin: 10/18/18 05:51 Dose: 100 mls/hr Potassium Chloride/Dextrose/Sod Cl (D5-1/2ns+20 Meq Kcl -) 20 meq in 1,000 mls @ 75 mls/hr IV ASDIR [facility] Last Admin: 10/18/18 13:32 Dose: 75 mls/hr Metoprolol Tartrate (Lopressor -) 50 mg PO BID [facility] Last Admin: 10/18/18 10:23 Dose: 50 mg Nifedipine (Procardia Xl -) 60 mg PO DAILY [facility] Last Admin: 10/18/18 10:23 Dose: 60 mg Ofloxacin (Ocuflox 0.3% Eye Drops -) 1 drop OU Q4HWA [facility] Last Admin: 10/18/18 13:30 Dose: 1 drop Oxcarbazepine (Trileptal) 300 mg PO BID [facility] Last Admin: 10/18/18 10:27 Dose: 300 mg Timolol Maleate (Timoptic 0.5%) 1 drop OU DAILY [facility] Last Admin: 10/18/18 10:23 Dose: 1 drop 58 year old woman with hx of Right sided hemorrhagic stroke with complex partial seizures as a result, HTN, hyperlipidemia who presented from home with seizures and found to be febrile with RAMYA. #Seizures #Fevers/Sepsis syndrome #RAMYA (normal baseline renal function) #Hx of CVA Renal function now improved to baseline pt is non-oliguric and no overt electrolyte abnormalities noted s/p Lasix for central congestion seen on CXR agree with reduced rate of IVF, will need to maintained on IVF as long as pt is on IV acyclovir can given additional lasix as needed Trend renal function Thank you Will follow Varun Avery DO
--- NOTE | 2018-10-18 16:31 | PN ---
Progress Note, Physician History of Present Illness: AWAKE, ALERT NO COMPLAINTS RECURRENT FEVER APPEARS DYSPNEIC ON NASAL CANNULA O2 CXR SHOWS CONGESTION WBC 11.4 - Current Medication List Current Medications: Active Medications Albuterol Sulfate (Ventolin 0.083% Nebulizer Soln -) 1 amp NEB Q4H PRN PRN Reason: SHORT OF BREATH/WHEEZING Heparin Sodium (Porcine) (Heparin -) 5,000 unit SQ TID [facility] Last Admin: 10/18/18 13:26 Dose: 5,000 unit Acyclovir 1,000 mg/ Dextrose 270 mls @ 135 mls/hr IVPB Q12H [facility] Last Admin: 10/18/18 10:49 Dose: 135 mls/hr Ceftriaxone Sodium 2 gm/ (Dextrose) 100 mls @ 100 mls/hr IVPB BID@0600,1800 [facility] ; Protocol Last Admin: 10/18/18 05:51 Dose: 100 mls/hr Potassium Chloride/Dextrose/Sod Cl (D5-1/2ns+20 Meq Kcl -) 20 meq in 1,000 mls @ 75 mls/hr IV ASDIR [facility] Last Admin: 10/18/18 13:32 Dose: 75 mls/hr Metoprolol Tartrate (Lopressor -) 50 mg PO BID [facility] Last Admin: 10/18/18 10:23 Dose: 50 mg Nifedipine (Procardia Xl -) 60 mg PO DAILY [facility] Last Admin: 10/18/18 10:23 Dose: 60 mg Ofloxacin (Ocuflox 0.3% Eye Drops -) 1 drop OU Q4HWA [facility] Last Admin: 10/18/18 13:30 Dose: 1 drop Oxcarbazepine (Trileptal) 300 mg PO BID [facility] Last Admin: 10/18/18 10:27 Dose: 300 mg Timolol Maleate (Timoptic 0.5%) 1 drop OU DAILY [facility] Last Admin: 10/18/18 10:23 Dose: 1 drop - Objective Vital Signs: Vital Signs Temperature 101.7 F H 10/18/18 14:05 Pulse Rate 101 H 10/18/18 14:05 Respiratory Rate 16 10/18/18 14:05 Blood Pressure 136/79 10/18/18 14:05 O2 Sat by Pulse Oximetry (%) 96 10/17/18 21:00 Constitutional: Yes: No Distress Eyes: Yes: Conjunctiva Clear Cardiovascular: Yes: Regular Rate and Rhythm, S1, S2 Respiratory: Yes: Other (CREPITATIONS, BASES) Gastrointestinal: Yes: Normal Bowel Sounds, Soft, Abdomen, Obese. No: Tenderness Labs: CBC, BMP 10/18/18 06:00 10/18/18 06:00 INR, PTT INR 1.04 (0.83-1.09) 10/13/18 08:25 Assessment/Plan RECURRENT FEVER ? SOURCE ALTERED MENTAL STATUS-IMPROVED R/O MENINGITIS PNEUMOCOCCAL AG, HSV PCR PENDING AZOTEMIA-IMPROVED REPEAT CULTURES LASIX CONTINUE EMPIRIC CEFTRIAXONE/ACV
[2018-10-18] MEDS ORDERED: PT OWN MED DRAWER 7, Y5N ONE (21:12)
[2018-10-18] MEDS ORDERED: ACETAMINOPHEN 1000 MG/100 ML VIAL (NON FORMULARY) IVPB ONE (22:11)
[2018-10-18 23:16] LABS: EPI CELLS 18.5 /HPF (0-5); URINE APPEARANCE CLOUDY; URINE BACTERIA 32.5 /hpf (NEGATIVE); URINE BILIRUBIN NEGATIVE (NEGATIVE); URINE CASTS 10 /hpf (0-8); URINE COLOR YELLOW; URINE GLUCOSE (UA) NEGATIVE (NEGATIVE); URINE KETONE NEGATIVE (NEGATIVE); URINE LEUK ESTERASE 2+ (NEGATIVE); URINE NITRITE NEGATIVE (NEGATIVE); URINE PROTEIN 1+ (NEGATIVE); URINE UROBILINOGEN 0.2 mg/dL (0.2-1.0); URINE WBC 14 /hpf (0-5)
[2018-10-19] MEDS: ALBUTEROL SO4 0.083% IH SOL 2.5 MG/3 ML VIAL.NEB. NEB PRN ×2 (02:30→06:40)
[2018-10-19] MEDS ORDERED: DEXTROSE 5%-WATER 100 ML IVPB ONE ×2 (05:37→16:00)
[2018-10-19] MEDS ORDERED: methylPREDNISolone NA SUCC 125 MG/2 ML VIAL ONE (06:33)
--- NOTE | 2018-10-19 07:02 | ECHO ---
Version: 1 Name: MAYNOR VARGAS Exam: Adult Echocardiogram Study Date: 10/18/2018, 1:41 PM Age: 58 Years MMode/2D Measurements & Calculations IVSd: 1.14 cm LVIDs: 2.6 cm LVIDd: 3.5 cm LVPWd: 1.61 cm ACS: 1.98 cm LVOT diam: 1.82 cm Left Ventricle The left ventricular size, thickness and function are normal. Right Ventricle The right ventricle is normal in size and function. Mitral Valve The mitral valve is grossly normal. Trace MR. Tricuspid Valve There is trace tricuspid regurgitation. Aortic Valve The aortic valve is normal in structure and function. Great Vessels The aortic root is normal size. Summary Statements The left ventricular size, thickness and function are normal The right ventricle is normal in size and function. The mitral valve is grossly normal. Trace MR There is trace tricuspid regurgitation. The aortic valve is normal in structure and function. The aortic root is normal size. Estimated EF 52% MD Alexandre Soler 10/18/2018, 1:27 PM Ordering Physician: PRATIBHA MINA Performed By: DAVIS
[2018-10-19] MEDS: CEFTRIAXONE 2 GM in DEXTROSE 5%-WATER 100 ML IVPB SCH ×2 (07:08→17:56)
[2018-10-19] MEDS: OFLOXACIN 0.3% OPHTHALMIC SOLUTION 5 ML BOTTLE OU SCH ×5 (07:09→23:00)
[2018-10-19] MEDS: HEPARIN NA (PORCINE) 5,000 UNITS/ML 1ML VIAL SQ SCH ×3 (07:09→22:59)
[2018-10-19 07:32] LABS: BASO % 0.8 % (0-2.0); EOS % 3.3 % (0-4.5); HEMATOCRIT 34.9 % (32.4-45.2); HEMOGLOBIN 11.5 GM/dL (10.7-15.3); LYMPH % 22.6 % (8-40); MCH 24.5 pg (25.7-33.7); MCHC 32.9 g/dl (32.0-36.0); MEAN CELL VOLUME 74.3 fl (80-96); MEAN PLT VOLUME 8.5 fl (7.5-11.1); MONO % 4.5 % (3.8-10.2); NEUT % 68.8 % (42.8-82.8); PLATELET COUNT 301 K/MM3 (134-434); RDW 17.7 % (11.6-15.6); WHITE BLOOD COUNT 22.8 K/mm3 (4.0-10.0)
[2018-10-19] MEDS ORDERED: methylPREDNISolone NA SUCC 40 MG/1 ML VIAL IVPUSH ONE (07:45)
[2018-10-19 08:05] LABS: ANION GAP 8 MMOL/L (8-16); BLOOD UREA NITROGEN 9 mg/dL (7-18); CALCIUM 8.1 mg/dL (8.5-10.1); CHLORIDE 106 mmol/L (98-107); CO2 26 mmol/L (21-32); CREATININE 1.1 mg/dL (0.55-1.3); GLUCOSE,RANDOM 105 mg/dL (74-106); MAGNESIUM 1.7 mg/dL (1.8-2.4); PHOSPHOROUS 2.8 mg/dL (2.5-4.9); POTASSIUM 3.4 mmol/L (3.5-5.1); SODIUM 140 mmol/L (136-145)
[2018-10-19] MEDS: ALBUTEROL SO4 0.083% IH SOL 2.5 MG/3 ML VIAL.NEB. NEB SCH ×4 (08:37→20:35)
[2018-10-19] MEDS ORDERED: FUROSEMIDE 40 MG/4 ML INJECTABLE VIAL IVPUSH ONE (08:49)
[2018-10-19] MEDS ORDERED: MAGNESIUM OXIDE 400 MG TABLET (FP) PO ONE (08:55)
[2018-10-19] MEDS ORDERED: POTASSIUM CHLORIDE TABS 20 MEQ TABLET.ER (FP) PO ONE (08:55)
--- NOTE | 2018-10-19 09:05 | PN ---
Physical Exam: SUBJECTIVE: Patient seen and examined; getting breathing treatment; wheezing; tachypniec OBJECTIVE: Vital Signs Period Temp Pulse Resp BP Sys/Lewis Pulse Ox Last 24 Hr 98.8 F-998.8 F 90-122 16-24 136-159/77-110 91-91 GENERAL: The patient is awake, alert,; getting breathing treatment; sob HEAD: Normal with no signs of trauma. LUNGS: wheez; +rales HEART: Regular rate and rhythm, S1, S2 without murmur, rub or gallop. ABDOMEN: Soft, nontender, nondistended, normoactive bowel sounds, no guarding, no rebound, no hepatosplenomegaly, no masses. EXTREMITIES: 2+ pulses, warm, well-perfused, no edema. NEUROLOGICAL: awake; alert; dis not answer questions Laboratory Results - last 24 hr 10/14/18 10/17/18 10/18/18 15:00 15:00 06:00 WBC RBC Hgb Hct MCV MCH MCHC RDW Plt Count MPV Absolute Neuts (auto) Neutrophils % Neutrophils % (Manual) Band Neutrophils % Lymphocytes % Lymphocytes % (Manual) Monocytes % Monocytes % (Manual) Eosinophils % Eosinophils % (Manual) Basophils % Basophils % (Manual) Myelocytes % (Man) Promyelocytes % (Man) Blast Cells % (Manual) Nucleated RBC % Metamyelocytes Hypochromia Platelet Estimate Polychromasia Poikilocytosis Anisocytosis Microcytosis Macrocytosis Sodium 140 Potassium 3.5 Chloride 108 H Carbon Dioxide 24 Anion Gap 9 BUN 11 Creatinine 1.1 Creat Clearance w eGFR 51.20 Random Glucose 95 Lactic Acid Calcium 8.4 L Phosphorus 2.4 L Magnesium 1.8 B-Natriuretic Peptide 1925.8 H Urine Color Urine Appearance Urine pH Ur Specific [place] Urine Protein Urine Glucose (UA) Urine Ketones Urine Blood Urine Nitrite Urine Bilirubin Urine Urobilinogen Ur Leukocyte Esterase Urine WBC (Auto) Urine RBC (Auto) Urine Casts (Auto) U Pathogenic Cast Auto U Epithel Cells (Auto) Urine Crystals (Auto) Urine Bacteria (Auto) Fluid Glucose Cancelled CSF Herpes II IgG Ab Cancelled 10/18/18 10/18/18 10/18/18 06:00 14:50 22:30 WBC 11.4 H RBC 4.93 Hgb 12.0 Hct 37.3 MCV 75.6 L MCH 24.3 L MCHC 32.2 RDW 17.9 H Plt Count 254 MPV 9.3 Absolute Neuts (auto) 7.3 Neutrophils % 64.3 Neutrophils % (Manual) 57.7 Band Neutrophils % 0.0 Lymphocytes % 18.4 D Lymphocytes % (Manual) 23.1 D Monocytes % 11.5 H Monocytes % (Manual) 13 H D Eosinophils % 5.7 H Eosinophils % (Manual) 2.9 Basophils % 0.1 Basophils % (Manual) 0.0 Myelocytes % (Man) 0 Promyelocytes % (Man) 0 Blast Cells % (Manual) 0 Nucleated RBC % 0 Metamyelocytes 0 D Hypochromia 0 Platelet Estimate Normal Polychromasia 0 Poikilocytosis 0 Anisocytosis 1+ Microcytosis 1+ Macrocytosis 0 Sodium Potassium Chloride Carbon Dioxide Anion Gap BUN Creatinine Creat Clearance w eGFR Random Glucose Lactic Acid 1.2 Calcium Phosphorus Magnesium B-Natriuretic Peptide Urine Color Yellow Urine Appearance Cloudy Urine pH 5.0 Ur Specific [place] 1.015 Urine Protein 1+ H Urine Glucose (UA) Negative Urine Ketones Negative Urine Blood Trace Urine Nitrite Negative Urine Bilirubin Negative Urine Urobilinogen 0.2 Ur Leukocyte Esterase 2+ H Urine WBC (Auto) 14 Urine RBC (Auto) 5-10 Urine Casts (Auto) 10 U Pathogenic Cast Auto None U Epithel Cells (Auto) 18.5 Urine Crystals (Auto) None Urine Bacteria (Auto) 32.5 Fluid Glucose CSF Herpes II IgG Ab 10/19/18 10/19/18 06:30 06:30 WBC 22.8 H RBC 4.70 Hgb 11.5 Hct 34.9 MCV 74.3 L MCH 24.5 L MCHC 32.9 RDW 17.7 H Plt Count 301 MPV 8.5 Absolute Neuts (auto) 15.7 H Neutrophils % 68.8 Neutrophils % (Manual) Band Neutrophils % Lymphocytes % 22.6 D Lymphocytes % (Manual) Monocytes % 4.5 Monocytes % (Manual) Eosinophils % 3.3 Eosinophils % (Manual) Basophils % 0.8 D Basophils % (Manual) Myelocytes % (Man) Promyelocytes % (Man) Blast Cells % (Manual) Nucleated RBC % 0 Metamyelocytes Hypochromia Platelet Estimate Polychromasia Poikilocytosis Anisocytosis Microcytosis Macrocytosis Sodium 140 Potassium 3.4 L Chloride 106 Carbon Dioxide 26 Anion Gap 8 BUN 9 Creatinine 1.1 Creat Clearance w eGFR 51.20 Random Glucose 105 Lactic Acid Calcium 8.1 L Phosphorus 2.8 Magnesium 1.7 L B-Natriuretic Peptide Urine Color Urine Appearance Urine pH Ur Specific [place] Urine Protein Urine Glucose (UA) Urine Ketones Urine Blood Urine Nitrite Urine Bilirubin Urine Urobilinogen Ur Leukocyte Esterase Urine WBC (Auto) Urine RBC (Auto) Urine Casts (Auto) U Pathogenic Cast Auto U Epithel Cells (Auto) Urine Crystals (Auto) Urine Bacteria (Auto) Fluid Glucose CSF Herpes II IgG Ab Active Medications Generic Name Dose Route Start Last Admin Trade Name Joeq PRN Reason Stop Dose Admin Albuterol Sulfate 1 amp 10/19/18 08:00 10/19/18 08:37 Ventolin 0.083% Nebulizer Soln - NEB 1 amp RQ4H JOSEF Administration Heparin Sodium (Porcine) 5,000 unit 10/18/18 14:00 10/19/18 07:09 Heparin - SQ 5,000 unit TID JOSEF Administration Acyclovir 1,000 mg/ Dextrose 270 mls @ 135 mls/hr 10/14/18 11:30 10/18/18 22: 43 IVPB 135 mls/hr Q12H JOSEF Administration Ceftriaxone Sodium 2 gm/ 100 mls @ 100 mls/hr 10/14/18 18:30 10/19/18 07:08 Dextrose IVPB 100 mls/hr BID@0600,1800 JOSEF Administration Protocol Potassium Chloride/Dextrose/Sod Cl 20 meq in 1,000 mls @ 75 mls/hr 10/18/18 13 :11 10/18/18 21:33 D5-1/2ns+20 Meq Kcl - IV 75 mls/hr ASDIR JOSEF Administration Metoprolol Tartrate 50 mg 10/17/18 10:00 10/18/18 22:11 Lopressor - PO 50 mg BID JOSEF Administration Nifedipine 60 mg 10/18/18 10:00 10/18/18 10:23 Procardia Xl - PO 60 mg DAILY JOSEF Administration Ofloxacin 1 drop 10/15/18 22:00 10/19/18 07:09 Ocuflox 0.3% Eye Drops - OU 1 drop Q4HWA JOSEF Administration Oxcarbazepine 300 mg 10/16/18 10:00 10/18/18 22:11 Trileptal PO 300 mg BID JOSEF Administration Timolol Maleate 1 drop 10/13/18 10:00 10/18/18 10:23 Timoptic 0.5% OU 1 drop DAILY JOSEF Administration ASSESSMENT/PLAN: This is a 58 year old female HTN, HLD, 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 Altered mental status with fever and high white count after seizure episode. 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 #Severe Sepsis; etiology currently unknown; -still with low grade temps; with rise in white count after getting solumedrol -repeat cultures pending ; UA+ -LP done;high protein ; HSV pending -cont empiric antibiotics for meningitis and HSV -IV ceftriaxone /IV acyclovir -ct chest, abdomen/pelvis; negative for acute infectious process -eeg reading negative for seizure -neuro /ID recs #sob ML sec to volume overload due to IVF; -stat cxr; still with fluid; prn lasix -s/p 40mg IV solumedrol this am -neb treatments -lower IVF #hypokalemia: replace #hypomagnesiemia: replace #agitation?; possible psych component? need ot work up if infectious etiology is ruled out #Acute kidney injury; improved -normal cr baseline -IVF hydration -renal recs #Epilepsy: -seen by neurology ; increased home trileptal to 300mg bid -eeg #HTN: -cont HCTZ; procardia xl Diet when not lethargic VTE ppl; heparin sq GI ppl : protonix Disposition: tele Visit type - Emergency Visit Emergency Visit: Yes ED Registration Date: 10/13/18 Care time: The patient presented to the Emergency Department on the above date and was hospitalized for further evaluation of their emergent condition. - New Patient This patient is new to me today: No - Critical Care Critical Care patient: No
[2018-10-19] MEDS ORDERED: methylPREDNISolone NA SUCC 40 MG/1 ML VIAL IVPUSH SCH (10:00)
[2018-10-19 10:29] LABS: ANISOCYTOSIS 1+; MACROCYTOSIS 0; PLATELET ESTIMATE NORMAL
[2018-10-19] MEDS ORDERED: PT OWN MED DRAWER 7, Y5N ONE ×2 (11:02→11:07)
[2018-10-19] MEDS: NIFEdipine E.R 60 MG TABLET (UD) PO SCH (11:15)
[2018-10-19] MEDS: METOPROLOL TARTRATE 50 MG TABLET (FP) PO SCH ×2 (11:15→22:59)
[2018-10-19] MEDS: TIMOLOL 0.5% OPHTHALMIC SOL 5 ML BOTTLE OU SCH (11:15)
[2018-10-19] MEDS: OXcarbazepine 300 MG/5 ML 250 ML BULK BOTTLE PO SCH ×2 (11:16→22:59)
[2018-10-19] MEDS: ACYCLOVIR INJECTION 1,000 MG in DEXTROSE 5%-WATER - 250 ML IVPB SCH ×2 (11:45→23:01)
--- NOTE | 2018-10-19 13:37 | PN ---
Progress Note (short form) - Note Progress Note: much more alert and conversant still with some intermittent confusion thinkss she had MRI which she didnt some confusion over events but oriented to person and place knows her PCP dr pritchett- asking for her to be notiifed of admission reports she is HIV negative but is agreeble to testing sherrell with us febrile yesterday- recultured and got steroids last night Vital Signs Period Temp Pulse Resp BP Sys/Lewis Pulse Ox Last 24 Hr 98.8 F-998.8 F 90-122 16-24 136-159/77-110 91-91 cor-rrr llungs clear abd soft,nt ext no edema dry skin on feet/face no rash CBC, BMP 10/19/18 06:30 10/19/18 06:30 Microbiology 10/17/18 18:32 Cerebral Spinal Fluid - Lumbar Puncture Gram Stain - Final 10/17/18 18:32 Cerebral Spinal Fluid - Lumbar Puncture CSF Culture - Preliminary NO GROWTH OBTAINED AFTER 24 HOURS INCUBATION, REINCUBATED. 10/13/18 20:15 Blood - Peripheral Venous Blood Culture - Final NO GROWTH AFTER 5 DAYS INCUBATION 10/13/18 18:30 Blood - Peripheral Venous Blood Culture - Final NO GROWTH AFTER 5 DAYS INCUBATION 10/18/18 15:33 Cerebral Spinal Fluid - Lumbar Puncture Streptococcus pneumoniae Antigen (M - Final 10/15/18 16:45 Urine For Antigen Detection Legionella Antigen - Final 10/15/18 16:45 Urine For Antigen Detection Streptococcus pneumoniae Antigen (M - Final 10/13/18 16:00 Urine - Urine - Catheterized Urine Culture - Final NO GROWTH OBTAINED a/p change in mental status-improved but not resolved still intermittent confusion awaiting hsv pcr new fever- repeat cultures sent repeat influenza antigen has agreed to HIV testing will order check rpr too continue ceftriaxone and acyclovir darwin elevated cpk history seizures history of CVA
--- NOTE | 2018-10-19 14:17 | PN ---
Teaching Attending Note Name of Resident: Teresita Benedict ATTENDING PHYSICIAN STATEMENT I saw and evaluated the patient. I reviewed the resident's note and discussed the case with the resident. I agree with the resident's findings and plan as documented. SUBJECTIVE: Patient says she is short of breath today. Unable to obtain any further subjective, patient mainly clears throat when asked questions. OBJECTIVE: Last Vital Signs Temp Pulse Resp BP Pulse Ox 37.7 C H 90 16 141/94 91 L 10/19/18 06:30 10/19/18 02:00 10/19/18 06:30 10/19/18 06:30 10/18/18 22:00 Gen: obese, altered Pulm: unable to auscultate secondary to patient clearing her throat through exam CV: distant, masked by throat clearing Abd: +bs, s/nt/nd Ext: no c/c/e CBC, BMP 10/19/18 06:30 10/19/18 06:30 ASSESSMENT AND PLAN: Problem List - Problems (1) Acute metabolic encephalopathy Assessment/Plan: -concern for meningitis -ID following -s/p LP, showing elevated protein but no other abnormalities -LP may not be reflective of process, was attempted but was not successful until after being on antibiotics and acyclovir -continue rocephin and acyclovir -needs IVF secondary to IV acyclovir -leukocytosis increasing -patient consents to HIV testing, ordered by ID Code(s): G93.41 - METABOLIC ENCEPHALOPATHY (2) Acute respiratory failure with hypoxia Assessment/Plan: -secondary to fluid overload -however patient needs IVF since on IV acyclovir -continue fluid and diurese with lasix as needed -received lasix 40mg IV today Code(s): J96.01 - ACUTE RESPIRATORY FAILURE WITH HYPOXIA (3) Pulmonary edema Assessment/Plan: -as above Code(s): J81.1 - CHRONIC PULMONARY EDEMA Qualifiers: Chronicity: acute Qualified Code(s): J81.0 - Acute pulmonary edema (4) Seizure Assessment/Plan: -continue trileptal Code(s): R56.9 - UNSPECIFIED CONVULSIONS (5) HTN (hypertension), benign Assessment/Plan: -continue lopressor Code(s): I10 - ESSENTIAL (PRIMARY) HYPERTENSION (6) History of CVA (cerebrovascular accident) Assessment/Plan: -noted Code(s): Z86.73 - PRSNL HX OF TIA (TIA), AND CEREB INFRC W/O RESID DEFICITS (7) Obesity (BMI 30-39.9) Assessment/Plan: -defer to PCP for outpatient weight loss plan Code(s): E66.9 - OBESITY, UNSPECIFIED
[2018-10-19] MEDS: D5-1/2NS+20 MEQ KCL - 20 MEQ/1,000 ML INFUS.BAG IV SCH (15:58)
[2018-10-20] MEDS: ALBUTEROL SO4 0.083% IH SOL 2.5 MG/3 ML VIAL.NEB. NEB SCH ×5 (00:35→18:25)
[2018-10-20] MEDS ORDERED: ALBUTEROL SO4 2.5/IPRATROPIUM 0.5 INH SOL 3 ML VIAL.NEB. NEB ONE (01:54)
[2018-10-20] MEDS ORDERED: LORazepam 2 MG/ML SDV VIAL IVPUSH ONE ×2 (01:54→23:00)
[2018-10-20] MEDS ORDERED: DEXTROSE 5%-WATER 100 ML IVPB ONE ×2 (06:20→16:40)
[2018-10-20] MEDS: HEPARIN NA (PORCINE) 5,000 UNITS/ML 1ML VIAL SQ SCH ×3 (06:23→22:24)
[2018-10-20] MEDS: CEFTRIAXONE 2 GM in DEXTROSE 5%-WATER 100 ML IVPB SCH ×2 (06:24→17:50)
[2018-10-20] MEDS: OFLOXACIN 0.3% OPHTHALMIC SOLUTION 5 ML BOTTLE OU SCH ×5 (06:24→22:26)
[2018-10-20 09:04] LABS: ALBUMIN 2.6 g/dl (3.4-5.0); ALK PHOS 98 U/L (45-117); ANION GAP 10 MMOL/L (8-16); BILIRUBIN,TOTAL 0.4 mg/dL (0.2-1); BLOOD UREA NITROGEN 13 mg/dL (7-18); CALCIUM 8.2 mg/dL (8.5-10.1); CHLORIDE 103 mmol/L (98-107); CO2 25 mmol/L (21-32); GLUCOSE,RANDOM 121 mg/dL (74-106); MAGNESIUM 2.1 mg/dL (1.8-2.4); PHOSPHOROUS 3.2 mg/dL (2.5-4.9); POTASSIUM 3.9 mmol/L (3.5-5.1); SGOT/AST 13 U/L (15-37); SGPT/ALT 27 U/L (13-61); SODIUM 138 mmol/L (136-145); TOT PROT 6.5 g/dl (6.4-8.2)
[2018-10-20 09:15] LABS: BASO % 0.4 % (0-2.0); EOS % 1.9 % (0-4.5); HEMATOCRIT 31.6 % (32.4-45.2); HEMOGLOBIN 10.4 GM/dL (10.7-15.3); LYMPH % 16.8 % (8-40); MCH 24.7 pg (25.7-33.7); MEAN CELL VOLUME 74.8 fl (80-96); MEAN PLT VOLUME 9.1 fl (7.5-11.1); MONO % 6.2 % (3.8-10.2); NEUT % 74.7 % (42.8-82.8); PLATELET COUNT 321 K/MM3 (134-434); RBC 4.23 M/mm3 (3.60-5.2); RDW 17.8 % (11.6-15.6); WHITE BLOOD COUNT 22.3 K/mm3 (4.0-10.0)
[2018-10-20] MEDS: NIFEdipine E.R 60 MG TABLET (UD) PO SCH (10:17)
[2018-10-20] MEDS: METOPROLOL TARTRATE 50 MG TABLET (FP) PO SCH ×2 (10:17→22:24)
[2018-10-20] MEDS: OXcarbazepine 300 MG/5 ML 250 ML BULK BOTTLE PO SCH ×2 (10:18→22:24)
[2018-10-20] MEDS: TIMOLOL 0.5% OPHTHALMIC SOL 5 ML BOTTLE OU SCH (10:28)
[2018-10-20] MEDS: ACYCLOVIR INJECTION 1,000 MG in DEXTROSE 5%-WATER - 250 ML IVPB SCH ×2 (10:43→22:31)
--- NOTE | 2018-10-20 10:50 | PN ---
Teaching Attending Note Name of Resident: Teresita Benedict ATTENDING PHYSICIAN STATEMENT I saw and evaluated the patient. I reviewed the resident's note and discussed the case with the resident. I agree with the resident's findings and plan as documented. SUBJECTIVE: unable to obtain, patient received ativan prior to visit so opens eyes but does not interact OBJECTIVE: Last Vital Signs Temp Pulse Resp BP Pulse Ox 37.4 C 104 H 20 150/85 95 10/20/18 06:00 10/20/18 06:00 10/20/18 06:00 10/20/18 06:00 10/19/18 21:00 Gen: obese, nad at rest but moans at attempts of interaction Pulm: ronchi bilaterally, muffled by moaning CV: rrr w/o m/r/g, muffled Abd: +bs, s/nt/nd Ext: no c/c/e CBC, BMP 10/20/18 08:00 10/20/18 08:00 ASSESSMENT AND PLAN: (1) Acute metabolic encephalopathy Assessment/Plan: -per RN was agitated overnight, received ativan -lethargic this am -neurology note reviewed -MRI pending -continue rocephin and acyclovir for meningitis/encephalitis treatment -ID following -all cultures negative -HIV negative -monitor for improvement Code(s): G93.41 - METABOLIC ENCEPHALOPATHY (2) Acute respiratory failure with hypoxia Assessment/Plan: -secondary to fluid overload -however patient needs IVF since on IV acyclovir -continue fluid and diurese with lasix as needed -will give another dose of IV lasix today Code(s): J96.01 - ACUTE RESPIRATORY FAILURE WITH HYPOXIA (3) Pulmonary edema Assessment/Plan: -as above Code(s): J81.1 - CHRONIC PULMONARY EDEMA Qualifiers: Chronicity: acute Qualified Code(s): J81.0 - Acute pulmonary edema (4) Seizure Assessment/Plan: -continue trileptal Code(s): R56.9 - UNSPECIFIED CONVULSIONS (5) HTN (hypertension), benign Assessment/Plan: -continue lopressor Code(s): I10 - ESSENTIAL (PRIMARY) HYPERTENSION (6) History of CVA (cerebrovascular accident) Assessment/Plan: -noted Code(s): Z86.73 - PRSNL HX OF TIA (TIA), AND CEREB INFRC W/O RESID DEFICITS (7) Obesity (BMI 30-39.9) Assessment/Plan: -defer to PCP for outpatient weight loss plan Code(s): E66.9 - OBESITY, UNSPECIFIED Problem List - Problems (1) Acute metabolic encephalopathy Code(s): G93.41 - METABOLIC ENCEPHALOPATHY (2) Acute respiratory failure with hypoxia Code(s): J96.01 - ACUTE RESPIRATORY FAILURE WITH HYPOXIA (3) Pulmonary edema Code(s): J81.1 - CHRONIC PULMONARY EDEMA Qualifiers: Chronicity: acute Qualified Code(s): J81.0 - Acute pulmonary edema (4) Seizure Code(s): R56.9 - UNSPECIFIED CONVULSIONS (5) HTN (hypertension), benign Code(s): I10 - ESSENTIAL (PRIMARY) HYPERTENSION (6) History of CVA (cerebrovascular accident) Code(s): Z86.73 - PRSNL HX OF TIA (TIA), AND CEREB INFRC W/O RESID DEFICITS (7) Obesity (BMI 30-39.9) Code(s): E66.9 - OBESITY, UNSPECIFIED
[2018-10-20 11:42] LABS: ANISOCYTOSIS 1+; MACROCYTOSIS 0; PLATELET ESTIMATE NORMAL
--- NOTE | 2018-10-20 13:22 | PN ---
Physical Exam: SUBJECTIVE: Patient seen and examined; lethargic this morning; s/p ativan last night due to agitation; wbc cnt still elevated; febrile 100.2 OBJECTIVE: Vital Signs Period Temp Pulse Resp BP Sys/Lewis Pulse Ox Last 24 Hr 98.8 F-100.2 F 57-107 16-20 102-189/51-111 95-95 GENERAL: The patient is awake, alert, and fully oriented, in no acute distress. HEAD: Normal with no signs of trauma. LUNGS: less wheeze; still crackles at bases HEART: Regular rate and rhythm, S1, S2 without murmur, rub or gallop. ABDOMEN: Soft, nontender, nondistended, normoactive bowel sounds, no guarding, no rebound, no hepatosplenomegaly, no masses. EXTREMITIES: 2+ pulses, warm, well-perfused, no edema. NEUROLOGICAL:more lethargic today Laboratory Results - last 24 hr 10/17/18 10/19/18 10/19/18 06:00 13:50 13:50 WBC RBC Hgb Hct MCV MCH MCHC RDW Plt Count MPV Absolute Neuts (auto) Neutrophils % Neutrophils % (Manual) Band Neutrophils % Lymphocytes % Lymphocytes % (Manual) Monocytes % Monocytes % (Manual) Eosinophils % Eosinophils % (Manual) Basophils % Basophils % (Manual) Myelocytes % (Man) Promyelocytes % (Man) Blast Cells % (Manual) Nucleated RBC % Metamyelocytes Hypochromia Platelet Estimate Polychromasia Poikilocytosis Anisocytosis Microcytosis Macrocytosis Sodium Potassium Chloride Carbon Dioxide Anion Gap BUN Creatinine Creat Clearance w eGFR POC Glucometer Random Glucose Calcium Phosphorus Magnesium Total Bilirubin AST ALT Alkaline Phosphatase Total Protein Albumin RPR Titer Nonreactive HSV I DNA Quant (PCR) Negative HSV II DNA Quant (PCR) Negative HIV Genotype Non reactive Influenza A (Rapid) Influenza B (Rapid) 10/19/18 10/20/18 10/20/18 13:55 08:00 08:00 WBC 22.3 H RBC 4.23 Hgb 10.4 L Hct 31.6 L MCV 74.8 L MCH 24.7 L MCHC 33.0 RDW 17.8 H Plt Count 321 MPV 9.1 Absolute Neuts (auto) 16.7 H Neutrophils % 74.7 Neutrophils % (Manual) 74.0 Band Neutrophils % 4.0 Lymphocytes % 16.8 D Lymphocytes % (Manual) 13.0 D Monocytes % 6.2 Monocytes % (Manual) 5 D Eosinophils % 1.9 Eosinophils % (Manual) 1.0 Basophils % 0.4 Basophils % (Manual) 0.0 Myelocytes % (Man) 0 D Promyelocytes % (Man) 0 Blast Cells % (Manual) 0 Nucleated RBC % 0 Metamyelocytes 1 D Hypochromia 0 Platelet Estimate Normal Polychromasia 0 Poikilocytosis 0 Anisocytosis 1+ Microcytosis 1+ Macrocytosis 0 Sodium 138 Potassium 3.9 Chloride 103 Carbon Dioxide 25 Anion Gap 10 BUN 13 Creatinine 1.0 Creat Clearance w eGFR 57.15 POC Glucometer Random Glucose 121 H Calcium 8.2 L Phosphorus 3.2 Magnesium 2.1 Total Bilirubin 0.4 AST 13 L ALT 27 Alkaline Phosphatase 98 Total Protein 6.5 Albumin 2.6 L RPR Titer HSV I DNA Quant (PCR) HSV II DNA Quant (PCR) HIV Genotype Influenza A (Rapid) Negative Influenza B (Rapid) Negative 10/20/18 10:44 WBC RBC Hgb Hct MCV MCH MCHC RDW Plt Count MPV Absolute Neuts (auto) Neutrophils % Neutrophils % (Manual) Band Neutrophils % Lymphocytes % Lymphocytes % (Manual) Monocytes % Monocytes % (Manual) Eosinophils % Eosinophils % (Manual) Basophils % Basophils % (Manual) Myelocytes % (Man) Promyelocytes % (Man) Blast Cells % (Manual) Nucleated RBC % Metamyelocytes Hypochromia Platelet Estimate Polychromasia Poikilocytosis Anisocytosis Microcytosis Macrocytosis Sodium Potassium Chloride Carbon Dioxide Anion Gap BUN Creatinine Creat Clearance w eGFR POC Glucometer 117 Random Glucose Calcium Phosphorus Magnesium Total Bilirubin AST ALT Alkaline Phosphatase Total Protein Albumin RPR Titer HSV I DNA Quant (PCR) HSV II DNA Quant (PCR) HIV Genotype Influenza A (Rapid) Influenza B (Rapid) Active Medications Generic Name Dose Route Start Last Admin Trade Name Freq PRN Reason Stop Dose Admin Albuterol Sulfate 1 amp 10/19/18 08:00 10/20/18 08:29 Ventolin 0.083% Nebulizer Soln - NEB 1 amp RQ4H JOSEF Administration Heparin Sodium (Porcine) 5,000 unit 10/18/18 14:00 10/20/18 06:23 Heparin - SQ 5,000 unit TID JOSEF Administration Acyclovir 1,000 mg/ Dextrose 270 mls @ 135 mls/hr 10/14/18 11:30 10/20/18 10: 43 IVPB 135 mls/hr Q12H JOSEF Administration Ceftriaxone Sodium 2 gm/ 100 mls @ 100 mls/hr 10/14/18 18:30 10/20/18 06:24 Dextrose IVPB 100 mls/hr BID@0600,1800 JOSEF Administration Protocol Potassium Chloride/Dextrose/Sod Cl 20 meq in 1,000 mls @ 75 mls/hr 10/18/18 13 :11 10/19/18 15:58 D5-1/2ns+20 Meq Kcl - IV 75 mls/hr ASDIR JOSEF Administration Metoprolol Tartrate 50 mg 10/17/18 10:00 10/20/18 10:17 Lopressor - PO 50 mg BID JOSEF Administration Nifedipine 60 mg 10/18/18 10:00 10/20/18 10:17 Procardia Xl - PO 60 mg DAILY JOSEF Administration Ofloxacin 1 drop 10/15/18 22:00 10/20/18 10:28 Ocuflox 0.3% Eye Drops - OU 1 drop Q4HWA JOSEF Administration Oxcarbazepine 300 mg 10/16/18 10:00 10/20/18 10:18 Trileptal PO 300 mg BID JOSEF Administration Timolol Maleate 1 drop 10/13/18 10:00 10/20/18 10:28 Timoptic 0.5% OU 1 drop DAILY JOSEF Administration ASSESSMENT/PLAN: This is a 58 year old female HTN, HLD, 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 Altered mental status with fever and high white count after seizure episode. 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 #Severe Sepsis; etiology currently unknown; -still with low grade temps; with rise in white count persists -repeat cultures pending ; UA+ -LP done;high protein ; HSV pending -cont empiric antibiotics for meningitis and HSV -IV ceftriaxone /IV acyclovir -ct chest, abdomen/pelvis; negative for acute infectious process -eeg reading negative for seizure -neuro /ID recs #sob ML sec to volume overload due to IVF; -stat cxr; still with fluid; prn lasix -neb treatments -lower IVF; clinically monitor #hypokalemia: replace #hypomagnesiemia: replace #agitation?; possible psych component? need to work up if infectious etiology is ruled out #Acute kidney injury; improved -normal cr baseline -IVF hydration -renal recs #Epilepsy: -seen by neurology ; increased home trileptal to 300mg bid -eeg negative for status; although does show slowing; that points toward encephalopathy #HTN: -cont HCTZ; procardia xl Diet when not lethargic VTE ppl; heparin sq GI ppl : protonix Disposition: tele Visit type - Emergency Visit Emergency Visit: Yes ED Registration Date: 10/13/18 Care time: The patient presented to the Emergency Department on the above date and was hospitalized for further evaluation of their emergent condition. - New Patient This patient is new to me today: No - Critical Care Critical Care patient: No
[2018-10-20] MEDS: D5-1/2NS+20 MEQ KCL - 20 MEQ/1,000 ML INFUS.BAG IV SCH (15:33)
--- NOTE | 2018-10-20 15:54 | PN ---
Progress Note (short form) - Note Progress Note: Renal function improved and stable. Will sign off at this time. Please call with any question or concerns. Thank you for allowing us to take part in the care of this patient. Varun Avery DO
[2018-10-20] MEDS ORDERED: FUROSEMIDE 40 MG/4 ML INJECTABLE VIAL IVPUSH ONE (17:41)
--- NOTE | 2018-10-20 19:22 | PN ---
Progress Note, Physician History of Present Illness: AWAKE, MILDLY CONFUSED OOB IN CHAIR NO COMPLAINTS - Current Medication List Current Medications: Active Medications Albuterol Sulfate (Ventolin 0.083% Nebulizer Soln -) 1 amp NEB RQ4H [facility] Last Admin: 10/20/18 08:29 Dose: 1 amp Heparin Sodium (Porcine) (Heparin -) 5,000 unit SQ TID [facility] Last Admin: 10/20/18 14:33 Dose: 5,000 unit Acyclovir 1,000 mg/ Dextrose 270 mls @ 135 mls/hr IVPB Q12H [facility] Last Admin: 10/20/18 10:43 Dose: 135 mls/hr Ceftriaxone Sodium 2 gm/ (Dextrose) 100 mls @ 100 mls/hr IVPB BID@0600,1800 [facility] ; Protocol Last Admin: 10/20/18 17:50 Dose: 100 mls/hr Potassium Chloride/Dextrose/Sod Cl (D5-1/2ns+20 Meq Kcl -) 20 meq in 1,000 mls @ 75 mls/hr IV ASDIR [facility] Last Admin: 10/20/18 15:33 Dose: 75 mls/hr Metoprolol Tartrate (Lopressor -) 50 mg PO BID [facility] Last Admin: 10/20/18 10:17 Dose: 50 mg Nifedipine (Procardia Xl -) 60 mg PO DAILY [facility] Last Admin: 10/20/18 10:17 Dose: 60 mg Ofloxacin (Ocuflox 0.3% Eye Drops -) 1 drop OU Q4HWA [facility] Last Admin: 10/20/18 17:53 Dose: 1 drop Oxcarbazepine (Trileptal) 300 mg PO BID [facility] Last Admin: 10/20/18 10:18 Dose: 300 mg Timolol Maleate (Timoptic 0.5%) 1 drop OU DAILY [facility] Last Admin: 10/20/18 10:28 Dose: 1 drop - Objective Vital Signs: Vital Signs Temperature 98 F 10/20/18 18:14 Pulse Rate 95 H 10/20/18 18:14 Respiratory Rate 18 10/20/18 18:14 Blood Pressure 141/101 H 10/20/18 18:14 O2 Sat by Pulse Oximetry (%) 95 10/20/18 09:00 Constitutional: Yes: No Distress Eyes: Yes: Conjunctiva Clear Cardiovascular: Yes: Regular Rate and Rhythm, S1, S2 Respiratory: Yes: CTA Bilaterally Gastrointestinal: Yes: Normal Bowel Sounds, Soft Edema: No Labs: CBC, BMP 10/20/18 08:00 10/20/18 08:00 INR, PTT INR 1.04 (0.83-1.09) 10/13/18 08:25 Assessment/Plan ALTERED MENTAL STATUS-IMPROVED R/O MENINGITIS PNEUMOCOCCAL AG, HSV PCR PENDING AZOTEMIA-IMPROVED CONTINUE EMPIRIC CEFTRIAXONE/ACV
[2018-10-20] MEDS ORDERED: PT OWN MED DRAWER 7, Y5N ONE (22:15)
[2018-10-21] MEDS ORDERED: ALBUTEROL SO4 2.5/IPRATROPIUM 0.5 INH SOL 3 ML VIAL.NEB. NEB ONE (03:21)
[2018-10-21] MEDS ORDERED: DEXTROSE 5%-WATER 100 ML IVPB ONE ×2 (05:08→16:19)
[2018-10-21] MEDS: HEPARIN NA (PORCINE) 5,000 UNITS/ML 1ML VIAL SQ SCH ×3 (05:13→22:17)
[2018-10-21] MEDS: CEFTRIAXONE 2 GM in DEXTROSE 5%-WATER 100 ML IVPB SCH ×2 (05:13→16:59)
[2018-10-21] MEDS: OFLOXACIN 0.3% OPHTHALMIC SOLUTION 5 ML BOTTLE OU SCH ×5 (05:17→22:17)
[2018-10-21] MEDS: ALBUTEROL SO4 0.083% IH SOL 2.5 MG/3 ML VIAL.NEB. NEB SCH ×4 (08:06→21:45)
[2018-10-21 08:18] LABS: BASO % 0.4 % (0-2.0); EOS % 4.6 % (0-4.5); HEMATOCRIT 30.9 % (32.4-45.2); HEMOGLOBIN 10.4 GM/dL (10.7-15.3); LYMPH % 18.5 % (8-40); MCH 24.8 pg (25.7-33.7); MCHC 33.7 g/dl (32.0-36.0); MEAN CELL VOLUME 73.7 fl (80-96); MEAN PLT VOLUME 8.7 fl (7.5-11.1); MONO % 6.8 % (3.8-10.2); NEUT % 69.7 % (42.8-82.8); PLATELET COUNT 400 K/MM3 (134-434); RBC 4.19 M/mm3 (3.60-5.2); RDW 17.8 % (11.6-15.6); WHITE BLOOD COUNT 17.9 K/mm3 (4.0-10.0)
[2018-10-21 08:23] LABS: CORRECTED WBC 0.02 K/mm3
[2018-10-21 08:30] LABS: ANION GAP 8 MMOL/L (8-16); BLOOD UREA NITROGEN 18 mg/dL (7-18); CALCIUM 7.9 mg/dL (8.5-10.1); CHLORIDE 105 mmol/L (98-107); CO2 27 mmol/L (21-32); CREATININE 1.2 mg/dL (0.55-1.3); GLUCOSE,RANDOM 98 mg/dL (74-106); MAGNESIUM 1.9 mg/dL (1.8-2.4); PHOSPHOROUS 3.5 mg/dL (2.5-4.9); SODIUM 140 mmol/L (136-145)
[2018-10-21] MEDS: METOPROLOL TARTRATE 50 MG TABLET (FP) PO SCH ×2 (09:50→22:16)
[2018-10-21] MEDS: NIFEdipine E.R 60 MG TABLET (UD) PO SCH (09:50)
[2018-10-21] MEDS: TIMOLOL 0.5% OPHTHALMIC SOL 5 ML BOTTLE OU SCH (09:52)
[2018-10-21] MEDS: OXcarbazepine 300 MG/5 ML 250 ML BULK BOTTLE PO SCH ×2 (09:53→22:16)
[2018-10-21 10:04] LABS: ERYTHROCYTE SEDIMENTATION RATE 83 mm/hr (0-30)
[2018-10-21] MEDS ORDERED: PT OWN MED DRAWER 7, Y5N ONE ×2 (11:44→22:11)
[2018-10-21] MEDS: ACYCLOVIR INJECTION 1,000 MG in DEXTROSE 5%-WATER - 250 ML IVPB SCH ×2 (11:47→23:25)
[2018-10-21] MEDS: D5-1/2NS+20 MEQ KCL - 20 MEQ/1,000 ML INFUS.BAG IV SCH (13:05)
--- NOTE | 2018-10-21 15:42 | PN ---
Teaching Attending Note Name of Resident: Teresita Benedict ATTENDING PHYSICIAN STATEMENT I saw and evaluated the patient. I reviewed the resident's note and discussed the case with the resident. I agree with the resident's findings and plan as documented. SUBJECTIVE: Ms Alcocer says she is feeling better today and is asking to go home. Denies cp, sob, n/v. Insists that she saw me in the operating room OBJECTIVE: Gen: nad, more active but still confused Pulm: ctab w/o w/r/r CV: rrr w/o m/r/g Abd: +bs, s/nt/nd Ext: no c/c/e ASSESSMENT AND PLAN: (1) Acute metabolic encephalopathy Assessment/Plan: -much improved today but still does not appear at baseline -continue IV rocephin and acyclovir per ID Code(s): G93.41 - METABOLIC ENCEPHALOPATHY (2) Acute respiratory failure with hypoxia Assessment/Plan: -resolved -continue to monitor since receiving IVF Code(s): J96.01 - ACUTE RESPIRATORY FAILURE WITH HYPOXIA (3) Pulmonary edema Assessment/Plan: -lung exam clear today -appears dry -no current need for lasix Code(s): J81.1 - CHRONIC PULMONARY EDEMA Qualifiers: Chronicity: acute Qualified Code(s): J81.0 - Acute pulmonary edema (4) Seizure Assessment/Plan: -continue trileptal Code(s): R56.9 - UNSPECIFIED CONVULSIONS (5) HTN (hypertension), benign Assessment/Plan: -continue lopressor Code(s): I10 - ESSENTIAL (PRIMARY) HYPERTENSION (6) History of CVA (cerebrovascular accident) Assessment/Plan: -noted Code(s): Z86.73 - PRSNL HX OF TIA (TIA), AND CEREB INFRC W/O RESID DEFICITS (7) Obesity (BMI 30-39.9) Assessment/Plan: -defer to PCP for outpatient weight loss plan Code(s): E66.9 - OBESITY, UNSPECIFIED Problem List - Problems (1) Acute metabolic encephalopathy Code(s): G93.41 - METABOLIC ENCEPHALOPATHY (2) Acute respiratory failure with hypoxia Code(s): J96.01 - ACUTE RESPIRATORY FAILURE WITH HYPOXIA (3) Pulmonary edema Code(s): J81.1 - CHRONIC PULMONARY EDEMA Qualifiers: Chronicity: acute Qualified Code(s): J81.0 - Acute pulmonary edema (4) Seizure Code(s): R56.9 - UNSPECIFIED CONVULSIONS (5) HTN (hypertension), benign Code(s): I10 - ESSENTIAL (PRIMARY) HYPERTENSION (6) History of CVA (cerebrovascular accident) Code(s): Z86.73 - PRSNL HX OF TIA (TIA), AND CEREB INFRC W/O RESID DEFICITS (7) Obesity (BMI 30-39.9) Code(s): E66.9 - OBESITY, UNSPECIFIED
--- NOTE | 2018-10-21 16:55 | PN ---
Physical Exam: SUBJECTIVE: Patient seen and examined; white count down to 17; more conversing today; still not totally at baseline OBJECTIVE: Vital Signs Period Temp Pulse Resp BP Sys/Lewis Pulse Ox Last 24 Hr 98 F-98.4 F 94-101 18-22 123-164/72-101 95-95 GENERAL: The patient is awake, alert, and fully oriented, in no acute distress. NECK: Trachea midline, full range of motion, supple. LUNGS: Breath sounds equal, clear to auscultation bilaterally, no wheezes, no crackles, no accessory muscle use. HEART: Regular rate and rhythm, S1, S2 without murmur, rub or gallop. ABDOMEN: Soft, nontender, nondistended, normoactive bowel sounds, no guarding, no rebound, no hepatosplenomegaly, no masses. EXTREMITIES: 2+ pulses, warm, well-perfused, no edema. NEUROLOGICAL: Cranial nerves II through XII grossly intact. Normal speech, gait not observed. Laboratory Results - last 24 hr 10/14/18 10/21/18 10/21/18 15:00 07:00 07:00 WBC 17.9 H Corrected WBC (auto) 0.02 RBC 4.19 Hgb 10.4 L Hct 30.9 L MCV 73.7 L MCH 24.8 L MCHC 33.7 RDW 17.8 H Plt Count 400 D MPV 8.7 Absolute Neuts (auto) 12.4 H Neutrophils % 69.7 Lymphocytes % 18.5 Monocytes % 6.8 Eosinophils % 4.6 H D Basophils % 0.4 ESR 83 H Sodium 140 Potassium 4.0 Chloride 105 Carbon Dioxide 27 Anion Gap 8 BUN 18 Creatinine 1.2 Creat Clearance w eGFR 46.30 Random Glucose 98 Calcium 7.9 L Phosphorus 3.5 Magnesium 1.9 Ammonia C-Reactive Protein 11.3 H TSH 1.31 Free T4 HSV I DNA Quant (PCR) Negative HSV II DNA Quant (PCR) Negative Antibody Screen 10/21/18 10/21/18 10/21/18 07:00 07:00 07:00 WBC Corrected WBC (auto) RBC Hgb Hct MCV MCH MCHC RDW Plt Count MPV Absolute Neuts (auto) Neutrophils % Lymphocytes % Monocytes % Eosinophils % Basophils % ESR Sodium Potassium Chloride Carbon Dioxide Anion Gap BUN Creatinine Creat Clearance w eGFR Random Glucose Calcium Phosphorus Magnesium Ammonia 21.80 C-Reactive Protein TSH Free T4 1.23 HSV I DNA Quant (PCR) HSV II DNA Quant (PCR) Antibody Screen Negative Active Medications Generic Name Dose Route Start Last Admin Trade Name Gordon PRN Reason Stop Dose Admin Albuterol Sulfate 1 amp 10/19/18 08:00 10/21/18 16:35 Ventolin 0.083% Nebulizer Soln - NEB 1 amp RQ4H JOSEF Administration Heparin Sodium (Porcine) 5,000 unit 10/18/18 14:00 10/21/18 05:13 Heparin - SQ 5,000 unit TID JOSEF Administration Acyclovir 1,000 mg/ Dextrose 270 mls @ 135 mls/hr 10/14/18 11:30 10/21/18 11: 47 IVPB 135 mls/hr Q12H JOSEF Administration Ceftriaxone Sodium 2 gm/ 100 mls @ 100 mls/hr 10/14/18 18:30 10/21/18 05:13 Dextrose IVPB 100 mls/hr BID@0600,1800 JOSEF Administration Protocol Potassium Chloride/Dextrose/Sod Cl 20 meq in 1,000 mls @ 75 mls/hr 10/18/18 13 :11 10/20/18 15:33 D5-1/2ns+20 Meq Kcl - IV 75 mls/hr ASDIR JOSEF Administration Metoprolol Tartrate 50 mg 10/17/18 10:00 10/21/18 09:50 Lopressor - PO 50 mg BID JOSEF Administration Nifedipine 60 mg 10/18/18 10:00 10/21/18 09:50 Procardia Xl - PO 60 mg DAILY JOSEF Administration Ofloxacin 1 drop 10/15/18 22:00 10/21/18 09:52 Ocuflox 0.3% Eye Drops - OU 1 drop Q4HWA JOSEF Administration Oxcarbazepine 300 mg 10/16/18 10:00 10/21/18 09:53 Trileptal PO 300 mg BID JOSEF Administration Timolol Maleate 1 drop 10/13/18 10:00 10/21/18 09:52 Timoptic 0.5% OU 1 drop DAILY JOSEF Administration ASSESSMENT/PLAN: This is a 58 year old female HTN, HLD, 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 Altered mental status with fever and high white count after seizure episode. W/u for infectious/UROLOGY SURGEON pathology. #Severe Sepsis; etiology currently unknown; -still with low grade temps; with rise in white count persists -repeat cultures pending ; UA+ -LP done;high protein ; HSV pending -cont empiric antibiotics for meningitis and HSV -IV ceftriaxone /IV acyclovir -ct chest, abdomen/pelvis; negative for acute infectious process -eeg reading negative for seizure -neuro /ID recs #sob ML sec to volume overload due to IVF; -stat cxr; still with fluid; prn lasix; none today -neb treatments -lower IVF; clinically monitor #hypokalemia: replace #hypomagnesiemia: replace #agitation?; possible psych component? need to work up if infectious etiology is ruled out #Acute kidney injury; improved -normal cr baseline -IVF hydration -renal recs #Epilepsy: -seen by neurology ; increased home trileptal to 300mg bid -eeg negative for status; although does show slowing; that points toward encephalopathy #HTN: -cont HCTZ; procardia xl Diet when not lethargic VTE ppl; heparin sq GI ppl : protonix Disposition: tele; ; NEED BRAIN MRI Visit type - Emergency Visit Emergency Visit: Yes ED Registration Date: 10/13/18 Care time: The patient presented to the Emergency Department on the above date and was hospitalized for further evaluation of their emergent condition. - New Patient This patient is new to me today: No - Critical Care Critical Care patient: No
--- NOTE | 2018-10-21 20:05 | PN ---
Progress Note, Physician History of Present Illness: AWAKE, CONFUSED SUPINE IN BED OFFERS NO COMPLAINTS - Current Medication List Current Medications: Active Medications Albuterol Sulfate (Ventolin 0.083% Nebulizer Soln -) 1 amp NEB RQ4H [facility] Last Admin: 10/21/18 16:35 Dose: 1 amp Heparin Sodium (Porcine) (Heparin -) 5,000 unit SQ TID [facility] Last Admin: 10/21/18 14:00 Dose: 5,000 unit Acyclovir 1,000 mg/ Dextrose 270 mls @ 135 mls/hr IVPB Q12H [facility] Last Admin: 10/21/18 11:47 Dose: 135 mls/hr Ceftriaxone Sodium 2 gm/ (Dextrose) 100 mls @ 100 mls/hr IVPB BID@0600,1800 [facility] ; Protocol Last Admin: 10/21/18 16:59 Dose: 100 mls/hr Potassium Chloride/Dextrose/Sod Cl (D5-1/2ns+20 Meq Kcl -) 20 meq in 1,000 mls @ 75 mls/hr IV ASDIR [facility] Last Admin: 10/21/18 13:05 Dose: Not Given Metoprolol Tartrate (Lopressor -) 50 mg PO BID [facility] Last Admin: 10/21/18 09:50 Dose: 50 mg Nifedipine (Procardia Xl -) 60 mg PO DAILY [facility] Last Admin: 10/21/18 09:50 Dose: 60 mg Ofloxacin (Ocuflox 0.3% Eye Drops -) 1 drop OU Q4HWA [facility] Last Admin: 10/21/18 17:06 Dose: 1 drop Oxcarbazepine (Trileptal) 300 mg PO BID [facility] Last Admin: 10/21/18 09:53 Dose: 300 mg Timolol Maleate (Timoptic 0.5%) 1 drop OU DAILY [facility] Last Admin: 10/21/18 09:52 Dose: 1 drop - Objective Vital Signs: Vital Signs Temperature 98.5 F 10/21/18 16:35 Pulse Rate 95 H 10/21/18 14:00 Respiratory Rate 20 10/21/18 14:00 Blood Pressure 160/95 10/21/18 14:00 O2 Sat by Pulse Oximetry (%) 95 10/21/18 08:46 Constitutional: Yes: No Distress, Obese Eyes: Yes: Conjunctiva Clear Cardiovascular: Yes: Regular Rate and Rhythm, S1, S2 Respiratory: Yes: CTA Bilaterally Gastrointestinal: Yes: Normal Bowel Sounds, Soft Edema: No Labs: CBC, BMP 10/21/18 07:00 10/21/18 07:00 INR, PTT INR 1.04 (0.83-1.09) 10/13/18 08:25 Assessment/Plan ALTERED MENTAL STATUS-IMPROVED BUT STILL CONFUSED R/O MENINGITIS PNEUMOCOCCAL AG NEGATIVE AZOTEMIA-IMPROVED CONTINUE EMPIRIC CEFTRIAXONE/ACV
[2018-10-22] MEDS: ALBUTEROL SO4 0.083% IH SOL 2.5 MG/3 ML VIAL.NEB. NEB SCH ×6 (00:05→19:35)
[2018-10-22] MEDS: ACETAMINOPHEN 325 MG TABLET (FP) PO PRN ×2 (01:21→22:09)
[2018-10-22] MEDS: D5-1/2NS+20 MEQ KCL - 20 MEQ/1,000 ML INFUS.BAG IV SCH ×2 (03:18→13:52)
[2018-10-22] MEDS ORDERED: DEXTROSE 5%-WATER 100 ML IVPB ONE ×2 (05:52→17:19)
[2018-10-22] MEDS: CEFTRIAXONE 2 GM in DEXTROSE 5%-WATER 100 ML IVPB SCH ×2 (05:56→17:21)
[2018-10-22] MEDS: HEPARIN NA (PORCINE) 5,000 UNITS/ML 1ML VIAL SQ SCH ×3 (05:56→22:09)
[2018-10-22] MEDS: OFLOXACIN 0.3% OPHTHALMIC SOLUTION 5 ML BOTTLE OU SCH ×5 (05:57→22:10)
[2018-10-22 07:50] LABS: BASO % 0.6 % (0-2.0); EOS % 6.1 % (0-4.5); HEMATOCRIT 31.2 % (32.4-45.2); HEMOGLOBIN 10.3 GM/dL (10.7-15.3); LYMPH % 21.1 % (8-40); MCH 24.7 pg (25.7-33.7); MCHC 33.2 g/dl (32.0-36.0); MEAN CELL VOLUME 74.4 fl (80-96); MEAN PLT VOLUME 8.5 fl (7.5-11.1); MONO % 4.9 % (3.8-10.2); NEUT % 67.3 % (42.8-82.8); PLATELET COUNT 441 K/MM3 (134-434); RBC 4.19 M/mm3 (3.60-5.2); RDW 17.9 % (11.6-15.6); WHITE BLOOD COUNT 16.5 K/mm3 (4.0-10.0)
[2018-10-22 08:02] LABS: ANION GAP 9 MMOL/L (8-16); BLOOD UREA NITROGEN 13 mg/dL (7-18); CHLORIDE 106 mmol/L (98-107); CO2 27 mmol/L (21-32); GLUCOSE,RANDOM 79 mg/dL (74-106); MAGNESIUM 2.2 mg/dL (1.8-2.4); PHOSPHOROUS 3.4 mg/dL (2.5-4.9); POTASSIUM 3.9 mmol/L (3.5-5.1); SODIUM 142 mmol/L (136-145)
[2018-10-22] MEDS ORDERED: PT OWN MED DRAWER 7, Y5N ONE ×2 (10:38→21:59)
[2018-10-22] MEDS: METOPROLOL TARTRATE 50 MG TABLET (FP) PO SCH ×2 (10:39→22:09)
[2018-10-22] MEDS: TIMOLOL 0.5% OPHTHALMIC SOL 5 ML BOTTLE OU SCH (10:40)
[2018-10-22] MEDS: NIFEdipine E.R 60 MG TABLET (UD) PO SCH (10:40)
[2018-10-22] MEDS: OXcarbazepine 300 MG/5 ML 250 ML BULK BOTTLE PO SCH ×2 (10:41→22:10)
[2018-10-22] MEDS: ACYCLOVIR INJECTION 1,000 MG in DEXTROSE 5%-WATER - 250 ML IVPB SCH ×2 (10:43→23:05)
[2018-10-22 10:47] LABS: ANISOCYTOSIS 1+; MACROCYTOSIS 0; OVALOCYTE 1+; PLATELET ESTIMATE NORMAL; TARGET CELLS 1+
--- NOTE | 2018-10-22 14:25 | PN ---
Progress Note, Physician Chief Complaint: Ms Alcocer says she is feeling fine. Denies cp, sob, n/v. Asking when she can go home. More alert today, speech still slightly slow but much improved from yesterday. - Current Medication List Current Medications: Active Medications Acetaminophen (Tylenol -) 650 mg PO Q6H PRN PRN Reason: FEVER Last Admin: 10/22/18 01:21 Dose: 650 mg Albuterol Sulfate (Ventolin 0.083% Nebulizer Soln -) 1 amp NEB RQ4H [facility] Last Admin: 10/22/18 12:20 Dose: 1 amp Heparin Sodium (Porcine) (Heparin -) 5,000 unit SQ TID [facility] Last Admin: 10/22/18 13:49 Dose: 5,000 unit Acyclovir 1,000 mg/ Dextrose 270 mls @ 135 mls/hr IVPB Q12H [facility] Last Admin: 10/22/18 10:43 Dose: 135 mls/hr Ceftriaxone Sodium 2 gm/ (Dextrose) 100 mls @ 100 mls/hr IVPB BID@0600,1800 [facility] ; Protocol Last Admin: 10/22/18 05:56 Dose: 100 mls/hr Potassium Chloride/Dextrose/Sod Cl (D5-1/2ns+20 Meq Kcl -) 20 meq in 1,000 mls @ 75 mls/hr IV ASDIR [facility] Last Admin: 10/22/18 13:52 Dose: Not Given Metoprolol Tartrate (Lopressor -) 50 mg PO BID [facility] Last Admin: 10/22/18 10:39 Dose: 50 mg Nifedipine (Procardia Xl -) 60 mg PO DAILY [facility] Last Admin: 10/22/18 10:40 Dose: 60 mg Ofloxacin (Ocuflox 0.3% Eye Drops -) 1 drop OU Q4HWA [facility] Last Admin: 10/22/18 13:53 Dose: 1 drop Oxcarbazepine (Trileptal) 300 mg PO BID [facility] Last Admin: 10/22/18 10:41 Dose: 300 mg Timolol Maleate (Timoptic 0.5%) 1 drop OU DAILY [facility] Last Admin: 10/22/18 10:40 Dose: 1 drop - Objective Vital Signs: Vital Signs Temperature 37.1 C 10/22/18 06:00 Pulse Rate 89 10/22/18 06:00 Respiratory Rate 20 10/22/18 09:00 Blood Pressure 158/107 H 10/22/18 06:00 O2 Sat by Pulse Oximetry (%) 95 10/22/18 09:00 Constitutional: Yes: No Distress, Calm, Obese Cardiovascular: Yes: Regular Rate and Rhythm. No: Gallop, Murmur, Rub Respiratory: Yes: Regular, CTA Bilaterally. No: Rales, Rhonchi, Wheezes Gastrointestinal: Yes: Normal Bowel Sounds, Soft. No: Distention, Tenderness Extremities: Yes: WNL Edema: No Labs: CBC, BMP 10/22/18 07:00 10/22/18 07:00 INR, PTT INR 1.04 (0.83-1.09) 10/13/18 08:25 Problem List - Problems (1) Acute metabolic encephalopathy Code(s): G93.41 - METABOLIC ENCEPHALOPATHY (2) Acute respiratory failure with hypoxia Code(s): J96.01 - ACUTE RESPIRATORY FAILURE WITH HYPOXIA (3) Pulmonary edema Code(s): J81.1 - CHRONIC PULMONARY EDEMA Qualifiers: Chronicity: acute Qualified Code(s): J81.0 - Acute pulmonary edema (4) Seizure Code(s): R56.9 - UNSPECIFIED CONVULSIONS (5) HTN (hypertension), benign Code(s): I10 - ESSENTIAL (PRIMARY) HYPERTENSION (6) History of CVA (cerebrovascular accident) Code(s): Z86.73 - PRSNL HX OF TIA (TIA), AND CEREB INFRC W/O RESID DEFICITS (7) Obesity (BMI 30-39.9) Code(s): E66.9 - OBESITY, UNSPECIFIED Assessment/Plan (1) Acute metabolic encephalopathy Assessment/Plan: -continues to improve -almost baseline today -MRI brain ordered, patient willing to go -may be able to do today or tomorrow since clearing -continue IV rocephin and acyclovir per ID Code(s): G93.41 - METABOLIC ENCEPHALOPATHY (2) Acute respiratory failure with hypoxia Assessment/Plan: -resolved -continue to monitor since receiving IVF Code(s): J96.01 - ACUTE RESPIRATORY FAILURE WITH HYPOXIA (3) Pulmonary edema Assessment/Plan: -lung exam clear today -appears dry -no current need for lasix Code(s): J81.1 - CHRONIC PULMONARY EDEMA Qualifiers: Chronicity: acute Qualified Code(s): J81.0 - Acute pulmonary edema (4) Seizure Assessment/Plan: -continue trileptal Code(s): R56.9 - UNSPECIFIED CONVULSIONS (5) HTN (hypertension), benign Assessment/Plan: -continue lopressor Code(s): I10 - ESSENTIAL (PRIMARY) HYPERTENSION (6) History of CVA (cerebrovascular accident) Assessment/Plan: -noted Code(s): Z86.73 - PRSNL HX OF TIA (TIA), AND CEREB INFRC W/O RESID DEFICITS (7) Obesity (BMI 30-39.9) Assessment/Plan: -defer to PCP for outpatient weight loss plan Code(s): E66.9 - OBESITY, UNSPECIFIED
[2018-10-23] MEDS: ALBUTEROL SO4 0.083% IH SOL 2.5 MG/3 ML VIAL.NEB. NEB SCH ×7 (00:41→23:33)
[2018-10-23] MEDS ORDERED: LORazepam 1 MG TABLET PO ONE (04:03)
[2018-10-23] MEDS ORDERED: DEXTROSE 5%-WATER 100 ML IVPB ONE ×2 (06:22→17:15)
[2018-10-23 06:57] LABS: BASO % 0.8 % (0-2.0); EOS % 4.6 % (0-4.5); HEMATOCRIT 32.9 % (32.4-45.2); HEMOGLOBIN 10.8 GM/dL (10.7-15.3); LYMPH % 14.5 % (8-40); MCH 24.5 pg (25.7-33.7); MCHC 32.7 g/dl (32.0-36.0); MEAN PLT VOLUME 8.2 fl (7.5-11.1); MONO % 4.7 % (3.8-10.2); NEUT % 75.4 % (42.8-82.8); PLATELET COUNT 466 K/MM3 (134-434); RBC 4.39 M/mm3 (3.60-5.2); RDW 17.9 % (11.6-15.6); WHITE BLOOD COUNT 16.1 K/mm3 (4.0-10.0)
[2018-10-23] MEDS: CEFTRIAXONE 2 GM in DEXTROSE 5%-WATER 100 ML IVPB SCH ×2 (06:58→17:17)
[2018-10-23] MEDS: OFLOXACIN 0.3% OPHTHALMIC SOLUTION 5 ML BOTTLE OU SCH ×5 (07:00→23:17)
[2018-10-23] MEDS: HEPARIN NA (PORCINE) 5,000 UNITS/ML 1ML VIAL SQ SCH ×3 (07:00→23:11)
[2018-10-23] MEDS: ACETAMINOPHEN 325 MG TABLET (FP) PO PRN ×3 (07:02→23:11)
[2018-10-23] MEDS: D5-1/2NS+20 MEQ KCL - 20 MEQ/1,000 ML INFUS.BAG IV SCH ×2 (07:04→14:42)
[2018-10-23 07:14] LABS: ANION GAP 5 MMOL/L (8-16); BLOOD UREA NITROGEN 8 mg/dL (7-18); CALCIUM 8.5 mg/dL (8.5-10.1); CHLORIDE 103 mmol/L (98-107); CO2 28 mmol/L (21-32); CREATININE 0.9 mg/dL (0.55-1.3); GLUCOSE,RANDOM 81 mg/dL (74-106); MAGNESIUM 2.2 mg/dL (1.8-2.4); PHOSPHOROUS 3.1 mg/dL (2.5-4.9); POTASSIUM 3.9 mmol/L (3.5-5.1); SODIUM 136 mmol/L (136-145)
[2018-10-23] MEDS ORDERED: PT OWN MED DRAWER 7, Y5N ONE ×3 (09:26→20:35)
[2018-10-23] MEDS: METOPROLOL TARTRATE 50 MG TABLET (FP) PO SCH ×2 (09:28→23:11)
[2018-10-23] MEDS: TIMOLOL 0.5% OPHTHALMIC SOL 5 ML BOTTLE OU SCH (09:28)
[2018-10-23] MEDS: NIFEdipine E.R 60 MG TABLET (UD) PO SCH (09:28)
[2018-10-23] MEDS: OXcarbazepine 300 MG/5 ML 250 ML BULK BOTTLE PO SCH ×2 (09:29→23:17)
[2018-10-23] MEDS: ACYCLOVIR INJECTION 1,000 MG in DEXTROSE 5%-WATER - 250 ML IVPB SCH ×2 (10:37→23:11)
--- NOTE | 2018-10-23 15:28 | PN ---
Progress Note, Physician Chief Complaint: Ms Alcocer is eager to go home. She denies cp, sob, n/v. Says she is feeling well and does not like being in the hospital. - Current Medication List Current Medications: Active Medications Acetaminophen (Tylenol -) 650 mg PO Q6H PRN PRN Reason: FEVER Last Admin: 10/23/18 07:02 Dose: 650 mg Albuterol Sulfate (Ventolin 0.083% Nebulizer Soln -) 1 amp NEB RQ4H [facility] Last Admin: 10/23/18 11:42 Dose: 1 amp Heparin Sodium (Porcine) (Heparin -) 5,000 unit SQ TID [facility] Last Admin: 10/23/18 14:42 Dose: 5,000 unit Acyclovir 1,000 mg/ Dextrose 270 mls @ 135 mls/hr IVPB Q12H [facility] Last Admin: 10/23/18 10:37 Dose: 135 mls/hr Ceftriaxone Sodium 2 gm/ (Dextrose) 100 mls @ 100 mls/hr IVPB BID@0600,1800 [facility] ; Protocol Last Admin: 10/23/18 06:58 Dose: 100 mls/hr Potassium Chloride/Dextrose/Sod Cl (D5-1/2ns+20 Meq Kcl -) 20 meq in 1,000 mls @ 75 mls/hr IV ASDIR [facility] Last Admin: 10/23/18 14:42 Dose: Not Given Metoprolol Tartrate (Lopressor -) 50 mg PO BID [facility] Last Admin: 10/23/18 09:28 Dose: 50 mg Nifedipine (Procardia Xl -) 60 mg PO DAILY [facility] Last Admin: 10/23/18 09:28 Dose: 60 mg Ofloxacin (Ocuflox 0.3% Eye Drops -) 1 drop OU Q4HWA [facility] Last Admin: 10/23/18 14:42 Dose: 1 drop Oxcarbazepine (Trileptal) 300 mg PO BID [facility] Last Admin: 10/23/18 09:29 Dose: 300 mg Timolol Maleate (Timoptic 0.5%) 1 drop OU DAILY [facility] Last Admin: 10/23/18 09:28 Dose: 1 drop - Objective Vital Signs: Vital Signs Temperature 37.4 C 10/23/18 10:00 Pulse Rate 95 H 10/23/18 10:00 Respiratory Rate 20 10/23/18 10:00 Blood Pressure 151/95 10/23/18 10:00 O2 Sat by Pulse Oximetry (%) 97 10/23/18 09:00 Constitutional: Yes: No Distress, Calm, Obese Cardiovascular: Yes: Regular Rate and Rhythm. No: Gallop, Murmur, Rub Respiratory: Yes: Regular, CTA Bilaterally. No: Rales, Rhonchi, Wheezes Gastrointestinal: Yes: Normal Bowel Sounds, Soft. No: Distention, Tenderness Extremities: Yes: WNL Edema: No Labs: CBC, BMP 10/23/18 06:00 10/23/18 06:00 INR, PTT INR 1.04 (0.83-1.09) 10/13/18 08:25 Problem List - Problems (1) Acute metabolic encephalopathy Code(s): G93.41 - METABOLIC ENCEPHALOPATHY (2) Acute respiratory failure with hypoxia Code(s): J96.01 - ACUTE RESPIRATORY FAILURE WITH HYPOXIA (3) Pulmonary edema Code(s): J81.1 - CHRONIC PULMONARY EDEMA Qualifiers: Chronicity: acute Qualified Code(s): J81.0 - Acute pulmonary edema (4) Seizure Code(s): R56.9 - UNSPECIFIED CONVULSIONS (5) HTN (hypertension), benign Code(s): I10 - ESSENTIAL (PRIMARY) HYPERTENSION (6) History of CVA (cerebrovascular accident) Code(s): Z86.73 - PRSNL HX OF TIA (TIA), AND CEREB INFRC W/O RESID DEFICITS (7) Obesity (BMI 30-39.9) Code(s): E66.9 - OBESITY, UNSPECIFIED Assessment/Plan (1) Acute metabolic encephalopathy Assessment/Plan: -patient is much clearer today -spoke with sister as well, patient much improved but still not at baseline -case d/w Dr Meadows, needs to finish 10 day course of antimicrobials -day 9/10 of treatment Code(s): G93.41 - METABOLIC ENCEPHALOPATHY (2) Acute respiratory failure with hypoxia Assessment/Plan: -resolved -continue to monitor since receiving IVF Code(s): J96.01 - ACUTE RESPIRATORY FAILURE WITH HYPOXIA (3) Pulmonary edema Assessment/Plan: -lung exam clear today -appears dry -no current need for lasix Code(s): J81.1 - CHRONIC PULMONARY EDEMA Qualifiers: Chronicity: acute Qualified Code(s): J81.0 - Acute pulmonary edema (4) Seizure Assessment/Plan: -continue trileptal Code(s): R56.9 - UNSPECIFIED CONVULSIONS (5) HTN (hypertension), benign Assessment/Plan: -continue lopressor Code(s): I10 - ESSENTIAL (PRIMARY) HYPERTENSION (6) History of CVA (cerebrovascular accident) Assessment/Plan: -noted Code(s): Z86.73 - PRSNL HX OF TIA (TIA), AND CEREB INFRC W/O RESID DEFICITS (7) Obesity (BMI 30-39.9) Assessment/Plan: -defer to PCP for outpatient weight loss plan Code(s): E66.9 - OBESITY, UNSPECIFIED
[2018-10-23] MEDS ORDERED: VANCOMYCIN 1 GM PREMIX - 1 GM/200 ML BAG IVPB ONE (19:03)
[2018-10-24] MEDS ORDERED: LORazepam 2 MG/ML SDV VIAL IVPUSH ONE (01:13)
[2018-10-24] MEDS: ALBUTEROL SO4 0.083% IH SOL 2.5 MG/3 ML VIAL.NEB. NEB SCH ×5 (04:30→20:10)
[2018-10-24] MEDS ORDERED: DEXTROSE 5%-WATER 100 ML IVPB ONE (05:52)
[2018-10-24] MEDS: CEFTRIAXONE 2 GM in DEXTROSE 5%-WATER 100 ML IVPB SCH (06:55)
[2018-10-24] MEDS: HEPARIN NA (PORCINE) 5,000 UNITS/ML 1ML VIAL SQ SCH ×3 (06:56→21:40)
[2018-10-24] MEDS: OFLOXACIN 0.3% OPHTHALMIC SOLUTION 5 ML BOTTLE OU SCH ×5 (06:57→21:40)
[2018-10-24 08:15] LABS: BASO % 0.2 % (0-2.0); EOS % 0.8 % (0-4.5); HEMATOCRIT 29.3 % (32.4-45.2); HEMOGLOBIN 9.8 GM/dL (10.7-15.3); MCH 25.1 pg (25.7-33.7); MCHC 33.2 g/dl (32.0-36.0); MEAN CELL VOLUME 75.5 fl (80-96); MONO % 3.7 % (3.8-10.2); NEUT % 88.3 % (42.8-82.8); PLATELET COUNT 419 K/MM3 (134-434); RBC 3.89 M/mm3 (3.60-5.2); RDW 17.7 % (11.6-15.6); WHITE BLOOD COUNT 15.5 K/mm3 (4.0-10.0)
[2018-10-24 08:48] LABS: ANION GAP 7 MMOL/L (8-16); BLOOD UREA NITROGEN 8 mg/dL (7-18); CALCIUM 8.1 mg/dL (8.5-10.1); CHLORIDE 104 mmol/L (98-107); CO2 25 mmol/L (21-32); CREATININE 0.8 mg/dL (0.55-1.3); GLUCOSE,RANDOM 112 mg/dL (74-106); MAGNESIUM 2.1 mg/dL (1.8-2.4); PHOSPHOROUS 3.8 mg/dL (2.5-4.9); POTASSIUM 4.3 mmol/L (3.5-5.1); SODIUM 136 mmol/L (136-145)
--- NOTE | 2018-10-24 10:21 | PN ---
Progress Note, Physician History of Present Illness: AWAKE OOB IN CHAIR OFFERS NO COMPLAINTS HIGH GRADE FEVER NOTED DENIES CHILLS, DYSPNEA/ COUGH NO C/O VOMITING/ DIARRHEA NO DYSURIA REPEAT BC OBTAINED CXR ? NEW BASILAR INFILTRATES - Current Medication List Current Medications: Active Medications Acetaminophen (Tylenol -) 650 mg PO Q6H PRN PRN Reason: FEVER Last Admin: 10/23/18 23:11 Dose: 650 mg Albuterol Sulfate (Ventolin 0.083% Nebulizer Soln -) 1 amp NEB RQ4H [facility] Last Admin: 10/24/18 07:45 Dose: 1 amp Heparin Sodium (Porcine) (Heparin -) 5,000 unit SQ TID [facility] [place] Last Admin: 10/24/18 06:56 Dose: 5,000 unit Acyclovir 1,000 mg/ Dextrose 270 mls @ 135 mls/hr IVPB Q12H [facility] [place] Last Admin: 10/23/18 23:11 Dose: 135 mls/hr Ceftriaxone Sodium 2 gm/ (Dextrose) 100 mls @ 100 mls/hr IVPB BID@0600,1800 [facility] ; Protocol Last Admin: 10/24/18 06:55 Dose: 100 mls/hr Potassium Chloride/Dextrose/Sod Cl (D5-1/2ns+20 Meq Kcl -) 20 meq in 1,000 mls @ 75 mls/hr IV ASDIR [facility] [place] Last Admin: 10/23/18 14:42 Dose: Not Given Metoprolol Tartrate (Lopressor -) 50 mg PO BID [facility] [place] Last Admin: 10/23/18 23:11 Dose: 50 mg Nifedipine (Procardia Xl -) 60 mg PO DAILY [facility] [place] Last Admin: 10/23/18 09:28 Dose: 60 mg Ofloxacin (Ocuflox 0.3% Eye Drops -) 1 drop OU Q4HWA [facility] [place] Last Admin: 10/24/18 06:57 Dose: 1 drop Oxcarbazepine (Trileptal) 300 mg PO BID [facility] [place] Last Admin: 10/23/18 23:17 Dose: 300 mg Timolol Maleate (Timoptic 0.5%) 1 drop OU DAILY [facility] Last Admin: 10/23/18 09:28 Dose: 1 drop - Objective Vital Signs: Vital Signs Temperature 98.2 F 10/24/18 09:57 Pulse Rate 98 H 10/24/18 09:57 Respiratory Rate 18 10/24/18 09:57 Blood Pressure 158/82 10/24/18 09:57 O2 Sat by Pulse Oximetry (%) 97 10/24/18 09:00 Constitutional: Yes: No Distress, Obese Cardiovascular: Yes: Regular Rate and Rhythm, S1, S2 Respiratory: Yes: CTA Bilaterally Gastrointestinal: Yes: Normal Bowel Sounds, Soft, Tenderness Edema: LLE: 1+, RLE: 1+ Labs: CBC, BMP 10/24/18 07:55 10/24/18 07:55 INR, PTT INR 1.04 (0.83-1.09) 10/13/18 08:25 Assessment/Plan RECURRENT HIGH GRADE FEVER ? HCAP ALTERED MENTAL STATUS-IMPROVED BUT STILL CONFUSED R/O MENINGITIS PNEUMOCOCCAL AG NEGATIVE AZOTEMIA-IMPROVED AWAIT REPEAT C/S EMPIRIC ZOSYN. RECEIVED STAT DOSE VANCOMYCIN CONTINUE ACV
[2018-10-24] MEDS ORDERED: PT OWN MED DRAWER 7, Y5N ONE ×2 (10:54→21:30)
[2018-10-24] MEDS: NIFEdipine E.R 60 MG TABLET (UD) PO SCH (10:57)
[2018-10-24] MEDS: METOPROLOL TARTRATE 50 MG TABLET (FP) PO SCH ×2 (10:57→21:40)
[2018-10-24] MEDS: OXcarbazepine 300 MG/5 ML 250 ML BULK BOTTLE PO SCH ×2 (10:58→21:41)
[2018-10-24] MEDS: TIMOLOL 0.5% OPHTHALMIC SOL 5 ML BOTTLE OU SCH (10:59)
[2018-10-24] MEDS: ACYCLOVIR INJECTION 1,000 MG in DEXTROSE 5%-WATER - 250 ML IVPB SCH (12:19)
[2018-10-24] MEDS ORDERED: PIPERACILLIN/TAZOBACTAM 3.375 GM VIAL IVPB ONE ×2 (12:21→18:07)
[2018-10-24] MEDS ORDERED: DEXTROSE 5%-WATER - 50 ML IVPB ONE ×2 (12:21→18:07)
[2018-10-24] MEDS: PIPERACILLIN/TAZOB 3.375 GM 3.375 GM in DEXTROSE 5%-WATER - 50 ML IVPB SCH ×2 (12:22→22:08)
[2018-10-24] MEDS ORDERED: ENALAPRIL MALEATE 2.5 MG TABLET (FP) PO ONE (14:20)
--- NOTE | 2018-10-24 15:06 | PN ---
Progress Note, Physician Chief Complaint: Ms Alcocer says she is feeling fine and wants to go home. Denies cp, sob, n/v. - Current Medication List Current Medications: Active Medications Acetaminophen (Tylenol -) 650 mg PO Q6H PRN PRN Reason: FEVER Last Admin: 10/23/18 23:11 Dose: 650 mg Albuterol Sulfate (Ventolin 0.083% Nebulizer Soln -) 1 amp NEB RQ4H [facility] Last Admin: 10/24/18 11:57 Dose: 1 amp Enalapril Maleate (Vasotec -) 5 mg PO DAILY [facility] Heparin Sodium (Porcine) (Heparin -) 5,000 unit SQ TID [facility] Last Admin: 10/24/18 14:11 Dose: 5,000 unit Acyclovir 1,000 mg/ Dextrose 270 mls @ 135 mls/hr IVPB Q12H [facility] Last Admin: 10/24/18 12:19 Dose: 135 mls/hr Potassium Chloride/Dextrose/Sod Cl (D5-1/2ns+20 Meq Kcl -) 20 meq in 1,000 mls @ 75 mls/hr IV ASDIR [facility] Last Admin: 10/23/18 14:42 Dose: Not Given Piperacillin Sod/Tazobactam (Sod 3.375 gm/ Dextrose) 50 mls @ 100 mls/hr IVPB Q8H-IV [facility]; Protocol Last Admin: 10/24/18 12:22 Dose: 100 mls/hr Metoprolol Tartrate (Lopressor -) 50 mg PO BID [facility] Last Admin: 10/24/18 10:57 Dose: 50 mg Nifedipine (Procardia Xl -) 60 mg PO DAILY [facility] Last Admin: 10/24/18 10:57 Dose: 60 mg Ofloxacin (Ocuflox 0.3% Eye Drops -) 1 drop OU Q4HWA [facility] Last Admin: 10/24/18 14:10 Dose: 1 drop Oxcarbazepine (Trileptal) 300 mg PO BID [facility] Last Admin: 10/24/18 10:58 Dose: 300 mg Timolol Maleate (Timoptic 0.5%) 1 drop OU DAILY [facility] Last Admin: 10/24/18 10:59 Dose: 1 drop - Objective Vital Signs: Vital Signs Temperature 36.8 C 10/24/18 14:14 Pulse Rate 89 10/24/18 14:14 Respiratory Rate 18 04/08/19 14:14 Blood Pressure 140/81 10/24/18 14:14 O2 Sat by Pulse Oximetry (%) 97 10/24/18 09:00 Constitutional: Yes: No Distress, Calm, Obese Cardiovascular: Yes: Regular Rate and Rhythm. No: Gallop, Murmur, Rub Respiratory: Yes: Regular, CTA Bilaterally. No: Rales, Rhonchi, Wheezes Gastrointestinal: Yes: Normal Bowel Sounds, Soft. No: Distention, Tenderness Extremities: Yes: WNL Edema: No Labs: CBC, BMP 10/24/18 07:55 10/24/18 07:55 INR, PTT INR 1.04 (0.83-1.09) 10/13/18 08:25 Problem List - Problems (1) Acute metabolic encephalopathy Code(s): G93.41 - METABOLIC ENCEPHALOPATHY (2) Acute respiratory failure with hypoxia Code(s): J96.01 - ACUTE RESPIRATORY FAILURE WITH HYPOXIA (3) Pulmonary edema Code(s): J81.1 - CHRONIC PULMONARY EDEMA Qualifiers: Chronicity: acute Qualified Code(s): J81.0 - Acute pulmonary edema (4) Seizure Code(s): R56.9 - UNSPECIFIED CONVULSIONS (5) HTN (hypertension), benign Code(s): I10 - ESSENTIAL (PRIMARY) HYPERTENSION (6) History of CVA (cerebrovascular accident) Code(s): Z86.73 - PRSNL HX OF TIA (TIA), AND CEREB INFRC W/O RESID DEFICITS (7) Obesity (BMI 30-39.9) Code(s): E66.9 - OBESITY, UNSPECIFIED Assessment/Plan (1) Acute metabolic encephalopathy Assessment/Plan: -ID note reviewed -continue IV acyclovir -continue IVF Code(s): G93.41 - METABOLIC ENCEPHALOPATHY (2) Acute respiratory failure with hypoxia Assessment/Plan: -resolved -continue to monitor since receiving IVF Code(s): J96.01 - ACUTE RESPIRATORY FAILURE WITH HYPOXIA (3) Pulmonary edema Assessment/Plan: -resolved -monitor Code(s): J81.1 - CHRONIC PULMONARY EDEMA Qualifiers: Chronicity: acute Qualified Code(s): J81.0 - Acute pulmonary edema (4) Seizure Assessment/Plan: -continue trileptal Code(s): R56.9 - UNSPECIFIED CONVULSIONS (5) HTN (hypertension), benign Assessment/Plan: -continue lopressor -continue nifedipine -add enalapril Code(s): I10 - ESSENTIAL (PRIMARY) HYPERTENSION (6) History of CVA (cerebrovascular accident) Assessment/Plan: -noted Code(s): Z86.73 - PRSNL HX OF TIA (TIA), AND CEREB INFRC W/O RESID DEFICITS (7) Obesity (BMI 30-39.9) Assessment/Plan: -defer to PCP for outpatient weight loss plan Code(s): E66.9 - OBESITY, UNSPECIFIED (8) HCAP -concern for HCAP -zosyn started -given dose of vancomycin
--- NOTE | 2018-10-24 15:46 | PN ---
Physical Exam: SUBJECTIVE: Patient seen and examined. She is feeling good today, no complaints. OBJECTIVE: Vital Signs Period Temp Pulse Resp BP Sys/Lewis Pulse Ox Last 24 Hr 98.2 F-102.3 F 89-116 18-18 136-186/77-100 97-97 GENERAL: The patient is awake, alert, in no acute distress. HEAD: Normal with no signs of trauma. EYES: PERRL, extraocular movements intact. ENT: Oropharynx clear without exudates, moist mucous membranes. NECK: Trachea midline, full range of motion, supple. LUNGS: Clear to auscultation bilaterally, no wheezes, no crackles, no accessory muscle use. HEART: Distant heart sounds, regular rate and rhythm, S1, S2 without murmur, rub or gallop. ABDOMEN: Obese, soft, nontender, nondistended, normoactive bowel sounds, no guarding, no masses. EXTREMITIES: 2+ pulses, warm, well-perfused, 1+ edema. NEUROLOGICAL: Cranial nerves II through XII grossly intact. Normal speech, gait not observed. PSYCH: Normal mood, normal affect. SKIN: Warm, dry, no rash. Laboratory Results - last 24 hr 10/21/18 10/24/18 10/24/18 07:00 07:55 07:55 WBC 15.5 H RBC 3.89 Hgb 9.8 L Hct 29.3 L MCV 75.5 L MCH 25.1 L MCHC 33.2 RDW 17.7 H Plt Count 419 MPV 8.0 Absolute Neuts (auto) 13.6 H Neutrophils % 88.3 H Lymphocytes % 7.0 L D Monocytes % 3.7 L Eosinophils % 0.8 D Basophils % 0.2 Nucleated RBC % 0 Sodium 136 Potassium 4.3 Chloride 104 Carbon Dioxide 25 Anion Gap 7 L BUN 8 Creatinine 0.8 Creat Clearance w eGFR 73.93 Random Glucose 112 H Calcium 8.1 L Phosphorus 3.8 Magnesium 2.1 Procalcitonin 1.07 H Microbiology 10/18/18 14:50 Blood - Peripheral Venous Blood Culture - Final NO GROWTH AFTER 5 DAYS INCUBATION 10/18/18 14:50 Blood - Peripheral Venous Blood Culture - Final NO GROWTH AFTER 5 DAYS INCUBATION 10/17/18 18:32 Cerebral Spinal Fluid - Lumbar Puncture Gram Stain - Final 10/17/18 18:32 Cerebral Spinal Fluid - Lumbar Puncture CSF Culture - Final 10/18/18 22:30 Urine - Urine Clean Catch Urine Culture - Final NO GROWTH OBTAINED 10/13/18 20:15 Blood - Peripheral Venous Blood Culture - Final NO GROWTH AFTER 5 DAYS INCUBATION 10/13/18 18:30 Blood - Peripheral Venous Blood Culture - Final NO GROWTH AFTER 5 DAYS INCUBATION 10/18/18 15:33 Cerebral Spinal Fluid - Lumbar Puncture Streptococcus pneumoniae Antigen (M - Final 10/15/18 16:45 Urine For Antigen Detection Legionella Antigen - Final 10/15/18 16:45 Urine For Antigen Detection Streptococcus pneumoniae Antigen (M - Final 10/13/18 16:00 Urine - Urine - Catheterized Urine Culture - Final NO GROWTH OBTAINED Active Medications Generic Name Dose Route Start Last Admin Trade Name Freq PRN Reason Stop Dose Admin Acetaminophen 650 mg 10/22/18 00:58 10/23/18 23:11 Tylenol - PO 650 mg Q6H PRN Administration FEVER Albuterol Sulfate 1 amp 10/19/18 08:00 10/24/18 11:57 Ventolin 0.083% Nebulizer [employer] - NEB 1 amp RQ4H [facility] Administration Enalapril Maleate 5 mg 10/25/18 10:00 Vasotec - PO DAILY [facility] Heparin Sodium (Porcine) 5,000 unit 10/18/18 14:00 10/24/18 14:11 Heparin - SQ 5,000 unit TID [facility] Administration Acyclovir 1,000 mg/ Dextrose 270 mls @ 135 mls/hr 10/14/18 11:30 10/24/18 12: 19 IVPB 135 mls/hr Q12H [facility] Administration Potassium Chloride/Dextrose/Sod Cl 20 meq in 1,000 mls @ 75 mls/hr 10/18/18 13 :11 10/23/18 14:42 D5-1/2ns+20 Meq Kcl - IV Not Given ASDIR [facility] Piperacillin Sod/Tazobactam 50 mls @ 100 mls/hr 10/24/18 11:15 10/24/18 12:22 Sod 3.375 gm/ Dextrose IVPB 100 mls/hr Q8H-IV [facility] Administration Protocol Metoprolol Tartrate 50 mg 10/17/18 10:00 10/24/18 10:57 Lopressor - PO 50 mg BID [facility] Administration Nifedipine 60 mg 10/18/18 10:00 10/24/18 10:57 Procardia Xl - PO 60 mg DAILY [facility] Administration Ofloxacin 1 drop 10/15/18 22:00 10/24/18 14:10 Ocuflox 0.3% Eye Drops - OU 1 drop Q4HWA [facility] Administration Oxcarbazepine 300 mg 10/16/18 10:00 10/24/18 10:58 Trileptal PO 300 mg BID [facility] Administration Timolol Maleate 1 drop 10/13/18 10:00 10/24/18 10:59 Timoptic 0.5% OU 1 drop DAILY [facility] Administration ASSESSMENT/PLAN: 58 year old female with a significant past medical history of R sided hemorrhagic stroke with complex partial seizures as a result, HTN, HLD, admiutted s/p seizure episode. Acute metabolic encephalopathy -unknown cause for now, likely infectious, possible HCAP, r/o meningitis, LP nl , done late -still AMS today, still spiking fever 102.3F -day 04/27 of empiric antibiotic treatment, Dr Meadows, finished Ceftriaxone, started Zosyn and Vancomycin today -Strep pneumo. neg Acute respiratory failure with hypoxia -resolved, Oxygen 97% on 3L -continue to monitor since receiving IVF: d51/2 ns 20 meq kcl Pulmonary edema -improved clinically Seizure -continue trileptal HTN -uncontrolled, 186/100 at 11 PM last night -continue lopressor 50 mg BID, procardia 60 mg qd and will add Enalapril 5 mg today History of CVA -stable Obesity (BMI 30-39.9) -councseling provided DVT PPX: heparin F/E/N: d51/2ns with 20 meq kcl/no changes/soft diet Dispo> telemetry monitoring Problem List - Problems (1) Acute metabolic encephalopathy Code(s): G93.41 - METABOLIC ENCEPHALOPATHY (2) Acute respiratory failure with hypoxia Code(s): J96.01 - ACUTE RESPIRATORY FAILURE WITH HYPOXIA (3) Pulmonary edema Code(s): J81.1 - CHRONIC PULMONARY EDEMA Qualifiers: Chronicity: acute Qualified Code(s): J81.0 - Acute pulmonary edema (4) Seizure Code(s): R56.9 - UNSPECIFIED CONVULSIONS (5) Cerebrovascular accident (CVA) Code(s): I63.9 - CEREBRAL INFARCTION, UNSPECIFIED Qualifiers: CVA mechanism: other Qualified Code(s): I63.89 - Other cerebral infarction (6) DVT prophylaxis Code(s): [id number] - (7) Edema Code(s): R60.9 - EDEMA, UNSPECIFIED Qualifiers: Edema type: unspecified Qualified Code(s): R60.9 - Edema, unspecified (8) HTN (hypertension), benign Code(s): I10 - ESSENTIAL (PRIMARY) HYPERTENSION (9) History of CVA (cerebrovascular accident) Code(s): Z86.73 - PRSNL HX OF TIA (TIA), AND CEREB INFRC W/O RESID DEFICITS (10) Obesity (BMI 30-39.9) Code(s): E66.9 - OBESITY, UNSPECIFIED (11) Acute kidney injury Code(s): N17.9 - ACUTE KIDNEY FAILURE, UNSPECIFIED (12) CKD (chronic kidney disease) stage 3, GFR 30-59 ml/min Code(s): N18.3 - CHRONIC KIDNEY DISEASE, STAGE 3 (MODERATE) Visit type - Emergency Visit Emergency Visit: Yes ED Registration Date: 10/13/18 Care time: The patient presented to the Emergency Department on the above date and was hospitalized for further evaluation of their emergent condition. - New Patient This patient is new to me today: Yes Date on this admission: 10/24/18 - Critical Care Critical Care patient: No
[2018-10-24] MEDS: D5-1/2NS+20 MEQ KCL - 20 MEQ/1,000 ML INFUS.BAG IV SCH (19:00)
[2018-10-24] MEDS ORDERED: ALBUTEROL SO4 2.5/IPRATROPIUM 0.5 INH SOL 3 ML VIAL.NEB. NEB ONE (20:25)
[2018-10-24] MEDS ORDERED: D5-1/2NS+20 MEQ KCL - 20 MEQ/1,000 ML INFUS.BAG IV SCH (20:25)
[2018-10-24] MEDS ORDERED: ACYCLOVIR 400 MG TABLET PO SCH (22:45)
[2018-10-24] MEDS: ACYCLOVIR 200 MG CAPSULE PO SCH (22:49)
[2018-10-24] MEDS: ACYCLOVIR 800 MG TABLET PO SCH (22:49)
[2018-10-24] MEDS ORDERED: ACYCLOVIR INJECTION 1,000 MG in DEXTROSE 5%-WATER - 250 ML IVPB SCH (23:30)
[2018-10-25] MEDS: PIPERACILLIN/TAZOB 3.375 GM 3.375 GM in DEXTROSE 5%-WATER - 50 ML IVPB SCH ×4 (01:07→17:21)
[2018-10-25] MEDS: ALBUTEROL SO4 0.083% IH SOL 2.5 MG/3 ML VIAL.NEB. NEB SCH ×6 (04:00→19:40)
[2018-10-25] MEDS: HEPARIN NA (PORCINE) 5,000 UNITS/ML 1ML VIAL SQ SCH ×3 (05:44→21:07)
[2018-10-25] MEDS: OFLOXACIN 0.3% OPHTHALMIC SOLUTION 5 ML BOTTLE OU SCH ×5 (05:44→21:07)
[2018-10-25 07:05] LABS: EOS % 4.5 % (0-4.5); HEMOGLOBIN 9.7 GM/dL (10.7-15.3); LYMPH % 25.5 % (8-40); MCH 25.8 pg (25.7-33.7); MCHC 34.7 g/dl (32.0-36.0); MEAN CELL VOLUME 74.3 fl (80-96); MEAN PLT VOLUME 7.7 fl (7.5-11.1); MONO % 6.1 % (3.8-10.2); NEUT % 62.9 % (42.8-82.8); PLATELET COUNT 494 K/MM3 (134-434); RBC 3.77 M/mm3 (3.60-5.2); RDW 17.7 % (11.6-15.6); WHITE BLOOD COUNT 10.4 K/mm3 (4.0-10.0)
[2018-10-25 07:33] LABS: ALBUMIN 2.3 g/dl (3.4-5.0); ALK PHOS 78 U/L (45-117); ANION GAP 7 MMOL/L (8-16); BILIRUBIN,TOTAL 0.3 mg/dL (0.2-1); BLOOD UREA NITROGEN 10 mg/dL (7-18); CALCIUM 8.2 mg/dL (8.5-10.1); CHLORIDE 105 mmol/L (98-107); CO2 25 mmol/L (21-32); CREATININE 0.9 mg/dL (0.55-1.3); GLUCOSE,RANDOM 83 mg/dL (74-106); MAGNESIUM 2.2 mg/dL (1.8-2.4); PHOSPHOROUS 3.3 mg/dL (2.5-4.9); POTASSIUM 4.2 mmol/L (3.5-5.1); SGOT/AST 22 U/L (15-37); SGPT/ALT 35 U/L (13-61); SODIUM 136 mmol/L (136-145); TOT PROT 6.5 g/dl (6.4-8.2)
[2018-10-25] MEDS: METOPROLOL TARTRATE 50 MG TABLET (FP) PO SCH ×2 (10:29→21:07)
[2018-10-25] MEDS: ACYCLOVIR 200 MG CAPSULE PO SCH ×2 (10:30→21:08)
[2018-10-25] MEDS: OXcarbazepine 300 MG/5 ML 250 ML BULK BOTTLE PO SCH ×2 (10:30→21:07)
[2018-10-25] MEDS: NIFEdipine E.R 60 MG TABLET (UD) PO SCH (10:30)
[2018-10-25] MEDS: ENALAPRIL MALEATE 5 MG TABLET (FP) PO SCH (10:31)
[2018-10-25] MEDS: TIMOLOL 0.5% OPHTHALMIC SOL 5 ML BOTTLE OU SCH (10:33)
[2018-10-25] MEDS: ACYCLOVIR 800 MG TABLET PO SCH ×2 (11:05→21:08)
[2018-10-25] MEDS ORDERED: PIPERACILLIN/TAZOBACTAM 3.375 GM VIAL IVPB ONE ×2 (13:55→16:43)
[2018-10-25] MEDS ORDERED: DEXTROSE 5%-WATER - 50 ML IVPB ONE ×2 (13:55→16:43)
--- NOTE | 2018-10-25 17:15 | PN ---
Teaching Attending Note Name of Resident: Louise Sims ATTENDING PHYSICIAN STATEMENT I saw and evaluated the patient. I reviewed the resident's note and discussed the case with the resident. I agree with the resident's findings and plan as documented. SUBJECTIVE: Ms Alcocer is without complaint and says she feels fine. States that she wants to get out of the hospital and go on her vacation to [place]. Denies, cp, sob, n/v. OBJECTIVE: Last Vital Signs Temp Pulse Resp BP Pulse Ox 36.8 C 89 16 124/77 97 10/25/18 14:01 10/25/18 14:01 10/25/18 14:01 10/25/18 14:01 10/25/18 09:00 Gen: nad, obese Pulm: ctab w/o w/r/r CV: rrr w/o m/r/g Abd: +bs, s/nt/nd Ext: no c/c/e CBC, BMP 10/25/18 06:30 10/25/18 06:30 ASSESSMENT AND PLAN: (1) Acute metabolic encephalopathy Assessment/Plan: -suspect patient is close to, if not at baseline -finished empiric treatment for meningitis Code(s): G93.41 - METABOLIC ENCEPHALOPATHY (2) Acute respiratory failure with hypoxia Assessment/Plan: -resolved Code(s): J96.01 - ACUTE RESPIRATORY FAILURE WITH HYPOXIA (3) Pulmonary edema Assessment/Plan: -resolved -now off IVF Code(s): J81.1 - CHRONIC PULMONARY EDEMA Qualifiers: Chronicity: acute Qualified Code(s): J81.0 - Acute pulmonary edema (4) Seizure Assessment/Plan: -continue trileptal Code(s): R56.9 - UNSPECIFIED CONVULSIONS (5) HTN (hypertension), benign Assessment/Plan: -continue lopressor -continue nifedipine -added enalapril -monitor for improvement now IVF has been discontinued Code(s): I10 - ESSENTIAL (PRIMARY) HYPERTENSION (6) History of CVA (cerebrovascular accident) Assessment/Plan: -noted Code(s): Z86.73 - PRSNL HX OF TIA (TIA), AND CEREB INFRC W/O RESID DEFICITS (7) Obesity (BMI 30-39.9) Assessment/Plan: -defer to PCP for outpatient weight loss plan Code(s): E66.9 - OBESITY, UNSPECIFIED (8) HCAP -concern for HCAP -zosyn started -given dose of vancomycin -ID following -leukocytosis resolved, currently afebrile Problem List - Problems (1) Acute metabolic encephalopathy Code(s): G93.41 - METABOLIC ENCEPHALOPATHY (2) Acute respiratory failure with hypoxia Code(s): J96.01 - ACUTE RESPIRATORY FAILURE WITH HYPOXIA (3) Pulmonary edema Code(s): J81.1 - CHRONIC PULMONARY EDEMA Qualifiers: Chronicity: acute Qualified Code(s): J81.0 - Acute pulmonary edema (4) Seizure Code(s): R56.9 - UNSPECIFIED CONVULSIONS (5) HTN (hypertension), benign Code(s): I10 - ESSENTIAL (PRIMARY) HYPERTENSION (6) History of CVA (cerebrovascular accident) Code(s): Z86.73 - PRSNL HX OF TIA (TIA), AND CEREB INFRC W/O RESID DEFICITS (7) Obesity (BMI 30-39.9) Code(s): E66.9 - OBESITY, UNSPECIFIED
--- NOTE | 2018-10-25 17:22 | PN ---
Physical Exam: SUBJECTIVE: Patient seen and examined. She is complaining of peeling of her skin. OBJECTIVE: Vital Signs Period Temp Pulse Resp BP Sys/Lewis Pulse Ox Last 24 Hr 98.3 F-99.7 F 89-107 16-22 124-160/77-98 97-97 GENERAL: The patient is awake, alert, in no acute distress, sitting in bed. HEAD: Normal with no signs of trauma. EYES: PERRL, extraocular movements intact. ENT: Oropharynx clear without exudates, moist mucous membranes. NECK: Trachea midline, full range of motion, supple. LUNGS: Clear to auscultation bilaterally, no wheezes, no crackles, no accessory muscle use. HEART: Distant heart sounds, regular rate and rhythm, S1, S2 without murmur, rub or gallop. ABDOMEN: Obese, soft, nontender, nondistended, normoactive bowel sounds, no guarding, no masses. EXTREMITIES: 2+ pulses, warm, well-perfused, 1+ edema. NEUROLOGICAL: Normal speech, gait not observed. PSYCH: Normal mood, normal affect. SKIN: Warm, dry, peeling skin throughout, no rash. Laboratory Results - last 24 hr 10/25/18 10/25/18 06:30 06:30 WBC 10.4 H RBC 3.77 Hgb 9.7 L Hct 28.0 L MCV 74.3 L MCH 25.8 MCHC 34.7 RDW 17.7 H Plt Count 494 H MPV 7.7 Absolute Neuts (auto) 6.5 Neutrophils % 62.9 D Lymphocytes % 25.5 D Monocytes % 6.1 Eosinophils % 4.5 D Basophils % 1.0 D Nucleated RBC % 0 Sodium 136 Potassium 4.2 Chloride 105 Carbon Dioxide 25 Anion Gap 7 L BUN 10 Creatinine 0.9 Creat Clearance w eGFR 64.54 Random Glucose 83 Calcium 8.2 L Phosphorus 3.3 Magnesium 2.2 Total Bilirubin 0.3 AST 22 ALT 35 Alkaline Phosphatase 78 Total Protein 6.5 Albumin 2.3 L Active Medications Generic Name Dose Route Start Last Admin Trade Name Freq PRN Reason Stop Dose Admin Acetaminophen 650 mg 10/24/18 20:25 Tylenol - PO Q6H PRN FEVER Acyclovir 200 mg 10/24/18 22:45 10/25/18 10:30 Zovirax - PO 200 mg BID [facility] Administration Acyclovir 800 mg 10/24/18 22:45 10/25/18 11:05 Zovirax - PO 800 mg BID [facility] Administration Albuterol Sulfate 1 amp 10/25/18 00:00 10/25/18 15:42 Ventolin 0.083% Nebulizer Soln - NEB 1 amp RQ4H [facility] Administration Enalapril Maleate 5 mg 10/25/18 10:00 10/25/18 10:31 Vasotec - PO 5 mg DAILY [facility] Administration Heparin Sodium (Porcine) 5,000 unit 10/24/18 22:00 10/25/18 14:01 Heparin - SQ 5,000 unit TID [facility] Administration Piperacillin Sod/Tazobactam 50 mls @ 100 mls/hr 10/24/18 11:15 10/25/18 14:01 Sod 3.375 gm/ Dextrose IVPB 100 mls/hr Q8H-IV [facility] Administration Protocol Potassium Chloride/Dextrose/Sod Cl 20 meq in 1,000 mls @ 75 mls/hr 10/24/18 20 :25 10/24/18 22:08 D5-1/2ns+20 Meq Kcl - IV Not Given ASDIR [facility] Metoprolol Tartrate 50 mg 10/24/18 22:00 10/25/18 10:29 Lopressor - PO 50 mg BID [facility] Administration Nifedipine 60 mg 10/25/18 10:00 10/25/18 10:30 Procardia Xl - PO 60 mg DAILY [facility] Administration Ofloxacin 1 drop 10/24/18 22:00 10/25/18 14:03 Ocuflox 0.3% Eye Drops - OU Not Given Q4HWA [facility] Oxcarbazepine 300 mg 10/24/18 22:00 10/25/18 10:30 Trileptal PO 300 mg BID [facility] Administration Timolol Maleate 1 drop 10/25/18 10:00 10/25/18 10:33 Timoptic 0.5% OU 1 drop DAILY [facility] Administration ASSESSMENT/PLAN: 58 year old female with a significant past medical history of R sided hemorrhagic stroke with complex partial seizures as a result, HTN, HLD, admitted s/p seizure episode. Acute metabolic encephalopathy -unknown cause for now, likely infectious, possible HCAP after seizure episde, r /o meningitis, LP nl, done late -AMS improved today, no fever in 24 hrs -day 04/27 of empiric antibiotic treatment, Dr Meadows, finished Ceftriaxone, started Zosyn yesterday and Vancomycin -Strep pneumo. neg micro; no growth Acute respiratory failure with hypoxia -resolved, Oxygen 97% on RA -continue to monitor, fluids stopped Pulmonary edema -improved clinically Seizure -continue trileptal HTN -controlled -continue lopressor 50 mg BID, procardia 60 mg qd and Enalapril 5 mg History of CVA -stable Obesity (BMI 30-39.9) -counseling provided DVT PPX: heparin F/E/N: no/no changes/soft diet Dispo> telemetry monitoring Problem List - Problems (1) Acute metabolic encephalopathy Code(s): G93.41 - METABOLIC ENCEPHALOPATHY (2) Acute respiratory failure with hypoxia Code(s): J96.01 - ACUTE RESPIRATORY FAILURE WITH HYPOXIA (3) Pulmonary edema Code(s): J81.1 - CHRONIC PULMONARY EDEMA Qualifiers: Chronicity: acute Qualified Code(s): J81.0 - Acute pulmonary edema (4) Seizure Code(s): R56.9 - UNSPECIFIED CONVULSIONS (5) Cerebrovascular accident (CVA) Code(s): I63.9 - CEREBRAL INFARCTION, UNSPECIFIED Qualifiers: CVA mechanism: other Qualified Code(s): I63.89 - Other cerebral infarction (6) DVT prophylaxis Code(s): [id number] - (7) Edema Code(s): R60.9 - EDEMA, UNSPECIFIED Qualifiers: Edema type: unspecified Qualified Code(s): R60.9 - Edema, unspecified (8) HTN (hypertension), benign Code(s): I10 - ESSENTIAL (PRIMARY) HYPERTENSION (9) History of CVA (cerebrovascular accident) Code(s): Z86.73 - PRSNL HX OF TIA (TIA), AND CEREB INFRC W/O RESID DEFICITS (10) Obesity (BMI 30-39.9) Code(s): E66.9 - OBESITY, UNSPECIFIED (11) Acute kidney injury Code(s): N17.9 - ACUTE KIDNEY FAILURE, UNSPECIFIED (12) CKD (chronic kidney disease) stage 3, GFR 30-59 ml/min Code(s): N18.3 - CHRONIC KIDNEY DISEASE, STAGE 3 (MODERATE) Visit type - Emergency Visit Emergency Visit: Yes ED Registration Date: 03/28/19 Care time: The patient presented to the Emergency Department on the above date and was hospitalized for further evaluation of their emergent condition. - New Patient This patient is new to me today: No - Critical Care Critical Care patient: No
[2018-10-25] MEDS ORDERED: PT OWN MED DRAWER 7, Y5N ONE (19:43)
[2018-10-26] MEDS: ALBUTEROL SO4 0.083% IH SOL 2.5 MG/3 ML VIAL.NEB. NEB SCH ×6 (00:11→21:21)
[2018-10-26] MEDS ORDERED: PIPERACILLIN/TAZOBACTAM 3.375 GM VIAL IVPB ONE ×2 (00:37→09:02)
[2018-10-26] MEDS ORDERED: DEXTROSE 5%-WATER - 50 ML IVPB ONE ×2 (00:37→09:02)
[2018-10-26] MEDS: PIPERACILLIN/TAZOB 3.375 GM 3.375 GM in DEXTROSE 5%-WATER - 50 ML IVPB SCH ×3 (01:08→20:06)
[2018-10-26] MEDS: HEPARIN NA (PORCINE) 5,000 UNITS/ML 1ML VIAL SQ SCH ×3 (05:31→22:46)
[2018-10-26] MEDS: OFLOXACIN 0.3% OPHTHALMIC SOLUTION 5 ML BOTTLE OU SCH ×5 (05:32→22:51)
[2018-10-26 07:00] LABS: BASO % 2.2 % (0-2.0); EOS % 3.8 % (0-4.5); HEMATOCRIT 27.7 % (32.4-45.2); HEMOGLOBIN 9.4 GM/dL (10.7-15.3); LYMPH % 39.1 % (8-40); MCH 25.2 pg (25.7-33.7); MCHC 34.1 g/dl (32.0-36.0); MEAN CELL VOLUME 74.1 fl (80-96); MEAN PLT VOLUME 7.6 fl (7.5-11.1); MONO % 9.3 % (3.8-10.2); NEUT % 45.6 % (42.8-82.8); PLATELET COUNT 539 K/MM3 (134-434); RBC 3.74 M/mm3 (3.60-5.2); RDW 18.2 % (11.6-15.6); WHITE BLOOD COUNT 7.8 K/mm3 (4.0-10.0)
[2018-10-26 07:33] LABS: ALBUMIN 2.5 g/dl (3.4-5.0); ALK PHOS 84 U/L (45-117); ANION GAP 9 MMOL/L (8-16); BILIRUBIN,TOTAL 0.4 mg/dL (0.2-1); BLOOD UREA NITROGEN 10 mg/dL (7-18); CHLORIDE 107 mmol/L (98-107); CO2 24 mmol/L (21-32); GLUCOSE,RANDOM 91 mg/dL (74-106); POTASSIUM 4.1 mmol/L (3.5-5.1); SGOT/AST 30 U/L (15-37); SGPT/ALT 48 U/L (13-61); SODIUM 140 mmol/L (136-145); TOT PROT 6.5 g/dl (6.4-8.2)
--- NOTE | 2018-10-26 08:33 | PN ---
Teaching Attending Note Name of Resident: Louise Sims ATTENDING PHYSICIAN STATEMENT I saw and evaluated the patient. I reviewed the resident's note and discussed the case with the resident. I agree with the resident's findings and plan as documented with exceptions below. SUBJECTIVE: Patient seen and examined. Awake, answers questions appropriately, inappropriate affect. No pain or complaints. OBJECTIVE: Vital Signs Period Temp Pulse Resp BP Sys/Lewis Pulse Ox Last 24 Hr 98.2 F-98.8 F 89-99 16-22 115-146/66-88 97-100 Intake & Output 10/23/18 10/24/18 10/25/18 10/26/18 23:59 23:59 23:59 23:59 Intake Total 1815 1090 995 Output Total 300 Balance 1815 790 995 General: sitting in chair Neuro: AA, oriented x 3, facial symmetric, inappropriate expressions, moves all extremities freely, occasional tangential conversations limiting exam Chest: limited exam given body habitus, no rales or wheezing Abdomen: soft, obese, NT Extremities: 1+ pedal edema Home Medications Medication Instructions Recorded Aspirin [ASA -] 81 mg PO DAILY 12/29/15 Metoprolol Tartrate [Lopressor -] 50 mg PO BID #60 tab 10/26/17 Nifedipine [Procardia Xl] 60 mg PO DAILY #30 tab 10/26/17 Oxcarbazepine 150 mg PO BID #60 tablet 10/26/17 Timolol 0.5% [Timoptic 0.5%] 1 drop OU DAILY #1 bottle 10/26/17 Hydrochlorothiazide [Hctz -] 25 mg PO DAILY 08/09/18 Active Medications Acetaminophen (Tylenol -) 650 mg PO Q6H PRN PRN Reason: FEVER Acyclovir (Zovirax -) 200 mg PO BID [facility] Last Admin: 10/25/18 21:08 Dose: 200 mg Acyclovir (Zovirax -) 800 mg PO BID [facility] Last Admin: 10/25/18 21:08 Dose: 800 mg Albuterol Sulfate (Ventolin 0.083% Nebulizer Soln -) 1 amp NEB RQ4H [facility] Last Admin: 10/26/18 08:09 Dose: 1 amp Enalapril Maleate (Vasotec -) 5 mg PO DAILY [facility] Last Admin: 10/25/18 10:31 Dose: 5 mg Heparin Sodium (Porcine) (Heparin -) 5,000 unit SQ TID [facility] Last Admin: 10/26/18 05:31 Dose: 5,000 unit Piperacillin Sod/Tazobactam (Sod 3.375 gm/ Dextrose) 50 mls @ 100 mls/hr IVPB Q8H-IV [facility]; Protocol Last Admin: 10/26/18 01:08 Dose: 100 mls/hr Metoprolol Tartrate (Lopressor -) 50 mg PO BID [facility] Last Admin: 10/25/18 21:07 Dose: 50 mg Nifedipine (Procardia Xl -) 60 mg PO DAILY [facility] Last Admin: 10/25/18 10:30 Dose: 60 mg Ofloxacin (Ocuflox 0.3% Eye Drops -) 1 drop OU Q4HWA [facility] Last Admin: 10/26/18 05:32 Dose: 1 drop Oxcarbazepine (Trileptal) 300 mg PO BID [facility] Last Admin: 10/25/18 21:07 Dose: 300 mg Timolol Maleate (Timoptic 0.5%) 1 drop OU DAILY [facility] Last Admin: 10/25/18 10:33 Dose: 1 drop Laboratory Results - last 24 hr 10/26/18 10/26/18 06:30 06:30 WBC 7.8 RBC 3.74 Hgb 9.4 L Hct 27.7 L MCV 74.1 L MCH 25.2 L MCHC 34.1 RDW 18.2 H Plt Count 539 H MPV 7.6 Absolute Neuts (auto) 3.6 Neutrophils % 45.6 D Lymphocytes % 39.1 D Monocytes % 9.3 Eosinophils % 3.8 Basophils % 2.2 H Nucleated RBC % 0 Sodium 140 Potassium 4.1 Chloride 107 Carbon Dioxide 24 Anion Gap 9 BUN 10 Creatinine 1.0 Creat Clearance w eGFR 57.15 Random Glucose 91 Calcium 8.0 L Total Bilirubin 0.4 AST 30 ALT 48 Alkaline Phosphatase 84 Total Protein 6.5 Albumin 2.5 L CXR images and results from 10/24/18 reviewed ASSESSMENT AND PLAN: 58 yof with PMhx of R haemorrhagic stroke, complex partial seizure disorder due to the same, HTN, HLD admitted with witnessed seizure, course complicated by fevers, AMS. -Sepsis,Suspected Left basilar Aspiration PNA from seizure/medications, s/p emperic Ceftriaxone/Acyclovir for meningitis/encephalatis -RAMYA, from hypovolumi/ATN from sepsis/poor oral intake, vs medication induced vs rhabdomyolysis, no evidence of obstruction -Witnessed seizure -Encephalopathy, infection vs seizure vs post ictal vs from meds -Acute on chronic diastolic heart failure exacerbation -Left conjunctivitis -Hypokalemia -Hypernatremia, resolved -H/o right sided haemorrhagic stroke -HTN -HLD Plan: ID input noted. No further fevers. Zosyn per ID. Blood/LP cultures neg so far. S/p Ceftriaxone emperic for Meningitis. CSF HSV PCR neg. Acyclovir per ID. MRI brain noted. LP studies with elevated protein, otherwise neg. Neurology input noted. Carbamazepine increased 300 mg BD, continue with seizure precautions. Avoid ativan for agitation as concerns for worsening confusion on the same. EEG result noted, abnormal but no epileptiform waves. Soft diet with aspiration precautions. Lasix prn. 2D echo noted. Avoid IVF for now. Metoprolol/nifedipine/Enalapril, monitor renal function. Resume HCTZ if BP elevated. Nephrology input noted. Renal/bladder US with no concerns. RAMYA resolved. Monitor off IVF. Pysch consult, concern for inappropriate affect and occasional tangential conversations. DVTPPX heparin DVTPPX Dispo pending clinical improvement. OOB, PT eval and dispo planning. Plan discussed with nursing, all questions answered.
[2018-10-26] MEDS ORDERED: PT OWN MED DRAWER 7, Y5N ONE ×2 (09:01→22:42)
[2018-10-26] MEDS: OXcarbazepine 300 MG/5 ML 250 ML BULK BOTTLE PO SCH ×2 (11:07→22:46)
[2018-10-26] MEDS: ENALAPRIL MALEATE 5 MG TABLET (FP) PO SCH (11:08)
[2018-10-26] MEDS: ACYCLOVIR 800 MG TABLET PO SCH ×2 (11:08→22:47)
[2018-10-26] MEDS: TIMOLOL 0.5% OPHTHALMIC SOL 5 ML BOTTLE OU SCH (11:08)
[2018-10-26] MEDS: METOPROLOL TARTRATE 50 MG TABLET (FP) PO SCH ×2 (11:09→22:47)
[2018-10-26] MEDS: ACYCLOVIR 200 MG CAPSULE PO SCH ×2 (11:10→22:47)
[2018-10-26] MEDS: NIFEdipine E.R 60 MG TABLET (UD) PO SCH (11:12)
--- NOTE | 2018-10-26 17:29 | PN ---
Physical Exam: SUBJECTIVE: Patient seen and examined. She is feeling very good today. OBJECTIVE: Vital Signs Period Temp Pulse Resp BP Sys/Lewis Pulse Ox Last 24 Hr 97.8 F-98.3 F 92-93 18-22 115-146/66-79 97-100 GENERAL: The patient is awake, alert, in no acute distress, sitting in bed. HEAD: Normal with no signs of trauma. EYES: PERRL, extraocular movements intact. ENT: Oropharynx clear without exudates, moist mucous membranes. NECK: Trachea midline, full range of motion, supple. LUNGS: Clear to auscultation bilaterally, no wheezes, no crackles, no accessory muscle use. HEART: Distant heart sounds, regular rate and rhythm, S1, S2 without murmur, rub or gallop. ABDOMEN: Obese, soft, nontender, nondistended, normoactive bowel sounds, no guarding, no masses. EXTREMITIES: 2+ pulses, warm, well-perfused, 1+ edema. NEUROLOGICAL: Normal speech, gait not observed. PSYCH: Normal mood, normal affect. SKIN: Warm, dry, peeling skin throughout, no rash. Laboratory Results - last 24 hr 10/26/18 10/26/18 06:30 06:30 WBC 7.8 RBC 3.74 Hgb 9.4 L Hct 27.7 L MCV 74.1 L MCH 25.2 L MCHC 34.1 RDW 18.2 H Plt Count 539 H MPV 7.6 Absolute Neuts (auto) 3.6 Neutrophils % 45.6 D Lymphocytes % 39.1 D Monocytes % 9.3 Eosinophils % 3.8 Basophils % 2.2 H Nucleated RBC % 0 Sodium 140 Potassium 4.1 Chloride 107 Carbon Dioxide 24 Anion Gap 9 BUN 10 Creatinine 1.0 Creat Clearance w eGFR 57.15 Random Glucose 91 Calcium 8.0 L Total Bilirubin 0.4 AST 30 ALT 48 Alkaline Phosphatase 84 Total Protein 6.5 Albumin 2.5 L Active Medications Generic Name Dose Route Start Last Admin Trade Name Freq PRN Reason Stop Dose Admin Acetaminophen 650 mg 10/24/18 20:25 Tylenol - PO Q6H PRN FEVER Acyclovir 200 mg 10/24/18 22:45 10/26/18 11:10 Zovirax - PO 200 mg BID JOSEF Administration Acyclovir 800 mg 10/24/18 22:45 10/26/18 11:08 Zovirax - PO 800 mg BID JOSEF Administration Albuterol Sulfate 1 amp 10/25/18 00:00 10/26/18 16:03 Ventolin 0.083% Nebulizer Soln - NEB 1 amp RQ4H JOSEF Administration Enalapril Maleate 5 mg 10/25/18 10:00 10/26/18 11:08 Vasotec - PO 5 mg DAILY JOSEF Administration Heparin Sodium (Porcine) 5,000 unit 10/24/18 22:00 10/26/18 14:42 Heparin - SQ 5,000 unit TID JOSEF Administration Piperacillin Sod/Tazobactam 50 mls @ 100 mls/hr 10/24/18 11:15 10/26/18 11:07 Sod 3.375 gm/ Dextrose IVPB 100 mls/hr Q8H-IV JOSEF Administration Protocol Metoprolol Tartrate 50 mg 10/24/18 22:00 10/26/18 11:09 Lopressor - PO 50 mg BID JOSEF Administration Nifedipine 60 mg 10/25/18 10:00 10/26/18 11:12 Procardia Xl - PO 60 mg DAILY JOSEF Administration Nystatin/Triamcinolone Acetonide 1 applic 10/26/18 22:00 Mycolog Ii Cream - TP BID JOSEF Ofloxacin 1 drop 10/24/18 22:00 10/26/18 14:42 Ocuflox 0.3% Eye Drops - OU 1 drop Q4HWA JOSEF Administration Oxcarbazepine 300 mg 10/24/18 22:00 10/26/18 11:07 Trileptal PO 300 mg BID JOSEF Administration Timolol Maleate 1 drop 10/25/18 10:00 10/26/18 11:08 Timoptic 0.5% OU 1 drop DAILY JOSEF Administration ASSESSMENT/PLAN: 58 year old female with a significant past medical history of R sided hemorrhagic stroke with complex partial seizures as a result, HTN, HLD, admitted s/p seizure episode. Acute metabolic encephalopathy -unknown cause for now, likely infectious, possible HCAP after seizure episde, r /o meningitis, LP nl, done late -AMS improved today, no fever in 24 hrs -day 11 of empiric antibiotic treatment, currently on Zosyn and PO Acyclovir -Strep pneumo. neg -micro; no growth -fluids stopped yesterday Acute respiratory failure with hypoxia -resolved, Oxygen 97% on RA -continue to monitor, fluids stopped Skin peeling: -dermatology consulted -likely due to Zosyn -will give ointment mycostatin RAMYA: -resolved -avoid nephrotoxins -renal sonogram with no acute pathology Pulmonary edema -improved clinically Seizure -continue trileptal HTN -controlled -continue lopressor 50 mg BID, procardia 60 mg qd and Enalapril 5 mg History of CVA -stable -MRI reviewed, consulted Neurology Obesity (BMI 30-39.9) -counseling provided DVT PPX: heparin F/E/N: no/no changes/soft diet Dispo> telemetry monitoring Problem List - Problems (1) Acute metabolic encephalopathy Code(s): G93.41 - METABOLIC ENCEPHALOPATHY (2) Acute respiratory failure with hypoxia Code(s): J96.01 - ACUTE RESPIRATORY FAILURE WITH HYPOXIA (3) Pulmonary edema Code(s): J81.1 - CHRONIC PULMONARY EDEMA Qualifiers: Chronicity: acute Qualified Code(s): J81.0 - Acute pulmonary edema (4) Seizure Code(s): R56.9 - UNSPECIFIED CONVULSIONS (5) Cerebrovascular accident (CVA) Code(s): I63.9 - CEREBRAL INFARCTION, UNSPECIFIED Qualifiers: CVA mechanism: other Qualified Code(s): I63.89 - Other cerebral infarction (6) DVT prophylaxis Code(s): [id number] - (7) Edema Code(s): R60.9 - EDEMA, UNSPECIFIED Qualifiers: Edema type: unspecified Qualified Code(s): R60.9 - Edema, unspecified (8) HTN (hypertension), benign Code(s): I10 - ESSENTIAL (PRIMARY) HYPERTENSION (9) History of CVA (cerebrovascular accident) Code(s): Z86.73 - PRSNL HX OF TIA (TIA), AND CEREB INFRC W/O RESID DEFICITS (10) Obesity (BMI 30-39.9) Code(s): E66.9 - OBESITY, UNSPECIFIED (11) Acute kidney injury Code(s): N17.9 - ACUTE KIDNEY FAILURE, UNSPECIFIED (12) CKD (chronic kidney disease) stage 3, GFR 30-59 ml/min Code(s): N18.3 - CHRONIC KIDNEY DISEASE, STAGE 3 (MODERATE) Visit type - Emergency Visit Emergency Visit: Yes ED Registration Date: 10/13/18 Care time: The patient presented to the Emergency Department on the above date and was hospitalized for further evaluation of their emergent condition. - New Patient This patient is new to me today: No - Critical Care Critical Care patient: No
[2018-10-26] MEDS ORDERED: NYSTATIN/TRIAMCINOLONE TOPICAL CREAM 15 GM TUBE TP SCH (22:00)
[2018-10-26] MEDS: NYSTATIN/TRIAMCINOLONE TOPICAL OINTMENT 15 GM TUBE TP SCH (23:39)
[2018-10-27] MEDS: ALBUTEROL SO4 0.083% IH SOL 2.5 MG/3 ML VIAL.NEB. NEB SCH ×6 (00:23→19:50)
[2018-10-27] MEDS ORDERED: DEXTROSE 5%-WATER - 50 ML IVPB ONE ×2 (01:01→09:19)
[2018-10-27] MEDS ORDERED: PIPERACILLIN/TAZOBACTAM 3.375 GM VIAL IVPB ONE ×2 (01:01→09:19)
[2018-10-27] MEDS: PIPERACILLIN/TAZOB 3.375 GM 3.375 GM in DEXTROSE 5%-WATER - 50 ML IVPB SCH ×2 (01:11→09:22)
[2018-10-27 05:58] LABS: BASO % 1.3 % (0-2.0); EOS % 4.2 % (0-4.5); HEMATOCRIT 30.5 % (32.4-45.2); HEMOGLOBIN 10.1 GM/dL (10.7-15.3); LYMPH % 40.5 % (8-40); MCHC 33.1 g/dl (32.0-36.0); MEAN CELL VOLUME 75.7 fl (80-96); MEAN PLT VOLUME 7.7 fl (7.5-11.1); MONO % 9.1 % (3.8-10.2); NEUT % 44.9 % (42.8-82.8); PLATELET COUNT 312 K/MM3 (134-434); RBC 4.03 M/mm3 (3.60-5.2); RDW 18.5 % (11.6-15.6); WHITE BLOOD COUNT 9.3 K/mm3 (4.0-10.0)
[2018-10-27] MEDS ORDERED: PT OWN MED DRAWER 7, Y5N ONE ×3 (06:36→20:57)
[2018-10-27] MEDS: HEPARIN NA (PORCINE) 5,000 UNITS/ML 1ML VIAL SQ SCH ×3 (06:41→21:13)
[2018-10-27] MEDS: OFLOXACIN 0.3% OPHTHALMIC SOLUTION 5 ML BOTTLE OU SCH ×5 (06:42→21:14)
[2018-10-27] MEDS: METOPROLOL TARTRATE 50 MG TABLET (FP) PO SCH ×2 (09:20→21:14)
[2018-10-27] MEDS: NYSTATIN/TRIAMCINOLONE TOPICAL OINTMENT 15 GM TUBE TP SCH ×2 (09:21→21:15)
[2018-10-27] MEDS: ACYCLOVIR 200 MG CAPSULE PO SCH (09:21)
[2018-10-27] MEDS: OXcarbazepine 300 MG/5 ML 250 ML BULK BOTTLE PO SCH ×2 (09:21→21:14)
[2018-10-27] MEDS: ACYCLOVIR 800 MG TABLET PO SCH (09:21)
[2018-10-27] MEDS: ENALAPRIL MALEATE 5 MG TABLET (FP) PO SCH (09:21)
[2018-10-27] MEDS: NIFEdipine E.R 60 MG TABLET (UD) PO SCH (09:22)
[2018-10-27] MEDS: TIMOLOL 0.5% OPHTHALMIC SOL 5 ML BOTTLE OU SCH (09:22)
--- NOTE | 2018-10-27 13:17 | PN ---
Physical Exam: SUBJECTIVE: Patient seen and examined. She is feeling good. No fever, chills. OBJECTIVE: Vital Signs Period Temp Pulse Resp BP Sys/Lewis Pulse Ox Last 24 Hr 97.8 F-98.2 F 81-92 20-20 120-157/76-97 99 GENERAL: The patient is awake, alert, in no acute distress, sitting in bed. HEAD: Normal with no signs of trauma. EYES: PERRL, extraocular movements intact. ENT: Oropharynx clear without exudates, moist mucous membranes. NECK: Trachea midline, full range of motion, supple. LUNGS: Clear to auscultation bilaterally, no wheezes, no crackles, no accessory muscle use. HEART: Distant heart sounds, regular rate and rhythm, S1, S2 without murmur, rub or gallop. ABDOMEN: Obese, soft, nontender, nondistended, normoactive bowel sounds, no guarding, no masses. EXTREMITIES: 2+ pulses, warm, well-perfused, 1+ edema. NEUROLOGICAL: Normal speech, gait not observed. PSYCH: Normal mood, normal affect. SKIN: Warm, dry, peeling skin throughout, no rash. Laboratory Results - last 24 hr 10/27/18 05:30 WBC 9.3 RBC 4.03 Hgb 10.1 L Hct 30.5 L MCV 75.7 L MCH 25.0 L MCHC 33.1 RDW 18.5 H Plt Count 312 D MPV 7.7 Absolute Neuts (auto) 4.2 Neutrophils % 44.9 Lymphocytes % 40.5 H Monocytes % 9.1 Eosinophils % 4.2 Basophils % 1.3 Nucleated RBC % 0 Active Medications Generic Name Dose Route Start Last Admin Trade Name Freq PRN Reason Stop Dose Admin Acetaminophen 650 mg 10/24/18 20:25 Tylenol - PO Q6H PRN FEVER Acyclovir 200 mg 10/24/18 22:45 10/27/18 09:21 Zovirax - PO 200 mg BID JOSEF Administration Acyclovir 800 mg 10/24/18 22:45 10/27/18 09:21 Zovirax - PO 800 mg BID JOSEF Administration Albuterol Sulfate 1 amp 10/25/18 00:00 10/27/18 11:50 Ventolin 0.083% Nebulizer Soln - NEB Not Given RQ4H JOSEF Enalapril Maleate 5 mg 10/25/18 10:00 10/27/18 09:21 Vasotec - PO 5 mg DAILY JOSEF Administration Heparin Sodium (Porcine) 5,000 unit 10/24/18 22:00 10/27/18 06:41 Heparin - SQ 5,000 unit TID JOSEF Administration Piperacillin Sod/Tazobactam 50 mls @ 100 mls/hr 10/24/18 11:15 10/27/18 09:22 Sod 3.375 gm/ Dextrose IVPB 100 mls/hr Q8H-IV JOSEF Administration Protocol Metoprolol Tartrate 50 mg 10/24/18 22:00 10/27/18 09:20 Lopressor - PO 50 mg BID JOSEF Administration Nifedipine 60 mg 10/25/18 10:00 10/27/18 09:22 Procardia Xl - PO 60 mg DAILY JOSEF Administration Nystatin/Triamcinolone Acetonide 1 applic 10/26/18 23:15 10/27/18 09:21 Mycolog Ii Ointment - TP 1 applic BID JOSEF Administration Ofloxacin 1 drop 10/24/18 22:00 10/27/18 09:22 Ocuflox 0.3% Eye Drops - OU 1 drop Q4HWA JOSEF Administration Oxcarbazepine 300 mg 10/24/18 22:00 10/27/18 09:21 Trileptal PO 300 mg BID JOSEF Administration Timolol Maleate 1 drop 10/25/18 10:00 10/27/18 09:22 Timoptic 0.5% OU 1 drop DAILY JOSEF Administration ASSESSMENT/PLAN: 58 year old female with a significant past medical history of R sided hemorrhagic stroke with complex partial seizures as a result, HTN, HLD, admitted s/p seizure episode. Acute metabolic encephalopathy -unknown cause for now, likely infectious, possible HCAP after seizure episode, r/o meningitis, LP nl, done late, PCR HSV neg -AMS improved, no fever in 24 hrs -Zosyn and Acyclovir stopped today -Strep pneumo. neg -micro; no growth -fluids stopped yesterday -Psychiatry cleared the patient today Acute respiratory failure with hypoxia -resolved, Oxygen 97% on RA -continue to monitor, fluids stopped Skin peeling: -dermatology consulted -likely due to Zosyn -will give ointment mycostatin RMAYA: -resolved -avoid nephrotoxins -renal sonogram with no acute pathology Pulmonary edema -improved clinically Seizure -continue trileptal HTN -controlled -continue lopressor 50 mg BID, procardia 60 mg qd and Enalapril 5 mg History of CVA -stable -MRI reviewed, consulted Neurology Obesity (BMI 30-39.9) -counseling provided DVT PPX: heparin F/E/N: no/no changes/soft diet Dispo> telemetry monitoring Problem List - Problems (1) Acute metabolic encephalopathy Code(s): G93.41 - METABOLIC ENCEPHALOPATHY (2) Acute respiratory failure with hypoxia Code(s): J96.01 - ACUTE RESPIRATORY FAILURE WITH HYPOXIA (3) Pulmonary edema Code(s): J81.1 - CHRONIC PULMONARY EDEMA Qualifiers: Chronicity: acute Qualified Code(s): J81.0 - Acute pulmonary edema (4) Seizure Code(s): R56.9 - UNSPECIFIED CONVULSIONS (5) Cerebrovascular accident (CVA) Code(s): I63.9 - CEREBRAL INFARCTION, UNSPECIFIED Qualifiers: CVA mechanism: other Qualified Code(s): I63.89 - Other cerebral infarction (6) DVT prophylaxis Code(s): [id number] - (7) Edema Code(s): R60.9 - EDEMA, UNSPECIFIED Qualifiers: Edema type: unspecified Qualified Code(s): R60.9 - Edema, unspecified (8) HTN (hypertension), benign Code(s): I10 - ESSENTIAL (PRIMARY) HYPERTENSION (9) History of CVA (cerebrovascular accident) Code(s): Z86.73 - PRSNL HX OF TIA (TIA), AND CEREB INFRC W/O RESID DEFICITS (10) Obesity (BMI 30-39.9) Code(s): E66.9 - OBESITY, UNSPECIFIED (11) Acute kidney injury Code(s): N17.9 - ACUTE KIDNEY FAILURE, UNSPECIFIED (12) CKD (chronic kidney disease) stage 3, GFR 30-59 ml/min Code(s): N18.3 - CHRONIC KIDNEY DISEASE, STAGE 3 (MODERATE) Visit type - Emergency Visit Emergency Visit: Yes ED Registration Date: 10/13/18 Care time: The patient presented to the Emergency Department on the above date and was hospitalized for further evaluation of their emergent condition. - New Patient This patient is new to me today: No - Critical Care Critical Care patient: No
--- NOTE | 2018-10-27 14:30 | CON.PSY ---
Psychiatry Consult Chief Complaint: 58 year old female s/p Stroke and confusion and seoizures on admission. patient seen for [facility] anastasia lackey. p[atient seems to be improving gradually anmd no rep[orts of any acute Psych symptoms. No Psych hiostory and on no Psych meds. Symptoms: reports: Impaired Concentration - Previous Psychiatric Treatment Outpatient: None Inpatient: None - Previous Substance Abuse Treatment Outpatient: None Inpatient: None - Current Medications Current Medications: Active Medications Acetaminophen (Tylenol -) 650 mg PO Q6H PRN PRN Reason: FEVER Acyclovir (Zovirax -) 200 mg PO BID [facility] Last Admin: 10/27/18 09:21 Dose: 200 mg Acyclovir (Zovirax -) 800 mg PO BID [facility] Last Admin: 10/27/18 09:21 Dose: 800 mg Albuterol Sulfate (Ventolin 0.083% Nebulizer Soln -) 1 amp NEB RQ4H [facility] Last Admin: 10/27/18 11:50 Dose: Not Given Enalapril Maleate (Vasotec -) 5 mg PO DAILY [facility] Last Admin: 10/27/18 09:21 Dose: 5 mg Heparin Sodium (Porcine) (Heparin -) 5,000 unit SQ TID [facility] Last Admin: 10/27/18 13:52 Dose: 5,000 unit Piperacillin Sod/Tazobactam (Sod 3.375 gm/ Dextrose) 50 mls @ 100 mls/hr IVPB Q8H-IV [facility]; Protocol Last Admin: 10/27/18 09:22 Dose: 100 mls/hr Metoprolol Tartrate (Lopressor -) 50 mg PO BID [facility] Last Admin: 10/27/18 09:20 Dose: 50 mg Nifedipine (Procardia Xl -) 60 mg PO DAILY [facility] Last Admin: 10/27/18 09:22 Dose: 60 mg Nystatin/Triamcinolone Acetonide (Mycolog Ii Ointment -) 1 applic TP BID [facility] Last Admin: 10/27/18 09:21 Dose: 1 applic Ofloxacin (Ocuflox 0.3% Eye Drops -) 1 drop OU Q4HWA [facility] Last Admin: 10/27/18 13:52 Dose: 1 drop Oxcarbazepine (Trileptal) 300 mg PO BID [facility] Last Admin: 10/27/18 09:21 Dose: 300 mg Timolol Maleate (Timoptic 0.5%) 1 drop OU DAILY JOSEF Last Admin: 10/27/18 09:22 Dose: 1 drop - Allergies Allergies: Allergies Allergy/AdvReac Type Severity Reaction Status Date / Time levetiracetam [From Keppra] AdvReac Verified 10/12/18 22:21 phenytoin sodium AdvReac Verified 10/12/18 22:21 [From Dilantin] phenytoin sodium extended AdvReac Verified 10/12/18 22:21 [From Dilantin] - Current Living Status Usual Living Arrangement: With Significant Other - Current Mental Status Evaluation Appearance: Well Groomed Attitude: Cooperative - Affect Appropriateness: Appropriate to Content - Mood Mood: Euthymic - Speech/Language Expressive: Coherent - Psychomotor Activity Psychomotor Activity: Slowed - Thought Process Thought Process: Intact - Thought Content Hallucinations: Absent Delusions: Absent - Self Perception Self Perception: No Impairment - Cognition Attention: Alert Memory, Immediate Recall: Intact Memory, Short Term: 2/3 Memory, Remote with Promptin/3 - Concentration Serial Sevens Intact: No Simple Calculations Intact: Yes - Abstraction Proverb Interpretation: Intact Judgement: Intact - Insight Insight: Intact - Impulse Control Impulse Control: Good Control - Suicidal Ideation Suicidal Ideation: No - Homicidal Ideation Homicidal Ideation: No Assessment/Plan 1) Patient is Psychiatrically clear for discharge 3) Discharge when medically stable. 2) No acute Psych illness.
--- NOTE | 2018-10-27 15:56 | PN ---
Teaching Attending Note Name of Resident: Louise Sims ATTENDING PHYSICIAN STATEMENT I saw and evaluated the patient. I reviewed the resident's note and discussed the case with the resident. I agree with the resident's findings and plan as documented with exceptions below. SUBJECTIVE: Patient seen and examined. AAOX3, intermittent tangential conversation, but overall appropriate. OBJECTIVE: Vital Signs Period Temp Pulse Resp BP Sys/Lewis Pulse Ox Last 24 Hr 97.8 F-98.6 F 81-101 20-20 148-162/87-97 96-99 Intake & Output 10/24/18 10/25/18 10/26/18 10/27/18 23:59 23:59 23:59 23:59 Intake Total 7765 056 7646 120 Output Total 300 Balance 566 658 9196 120 Weight 228 lb 12.8 oz General: sitting in chair in no acute distress Chest: limited by body habitus, unable to appreciate rales or wheezing Abdomen: soft, obese, NT Extremities: 1+ pedal edema Skin: excoriation over back and neck, non pruritic/non erythematous ASSESSMENT AND PLAN: 58 yof with PMhx of R haemorrhagic stroke, complex partial seizure disorder due to the same, HTN, HLD admitted with witnessed seizure, course complicated by fevers, AMS. -Sepsis,Suspected Left basilar Aspiration PNA from seizure/medications, s/p emperic Ceftriaxone/Acyclovir for meningitis/encephalatis -RAMYA, from hypovolumi/ATN from sepsis/poor oral intake, vs medication induced vs rhabdomyolysis, no evidence of obstruction -Witnessed seizure -Encephalopathy, infection vs seizure vs post ictal vs from meds -Acute on chronic diastolic heart failure exacerbation -Left conjunctivitis -Hypokalemia -Hypernatremia, resolved -H/o right sided haemorrhagic stroke -HTN -HLD Plan: ID input noted. No further fevers. Blood/LP cultures neg so far. Discuss with ID about zosyn/acyclovir taper. S/p Ceftriaxone emperic for Meningitis. CSF HSV PCR neg. MRI brain noted. LP studies with elevated protein, otherwise neg. Neurology input noted. Carbamazepine increased 300 mg BD, continue with seizure precautions. Avoid ativan for agitation as concerns for worsening confusion on the same. EEG result noted, abnormal but no epileptiform waves. Soft diet with aspiration precautions. Lasix prn. 2D echo noted. Avoid IVF for now. Metoprolol/nifedipine/Enalapril, monitor renal function. Resume HCTZ if BP elevated. Nephrology input noted. Renal/bladder US with no concerns. RAMYA resolved. Monitor off IVF. Pysch consult noted. Patient agreable to SNF. Discussed with CM. DVTPPX heparin DVTPPX Dispo SNF in 1-2 days pending ID and CM input. OOB, PT eval and dispo planning. Plan discussed with patient and nursing, all questions answered.
--- NOTE | 2018-10-27 16:35 | PN ---
Progress Note, Physician Chief Complaint: OOB IN CHAIR C/O XEROSIS AFEBRILE WBC WNL History of Present Illness: AWAKE OOB IN CHAIR OFFERS NO COMPLAINTS HIGH GRADE FEVER NOTED DENIES CHILLS, DYSPNEA/ COUGH NO C/O VOMITING/ DIARRHEA NO DYSURIA REPEAT BC OBTAINED CXR ? NEW BASILAR INFILTRATES - Current Medication List Current Medications: Active Medications Acetaminophen (Tylenol -) 650 mg PO Q6H PRN PRN Reason: FEVER Acyclovir (Zovirax -) 200 mg PO BID [facility] Last Admin: 10/27/18 09:21 Dose: 200 mg Acyclovir (Zovirax -) 800 mg PO BID [facility] Last Admin: 10/27/18 09:21 Dose: 800 mg Albuterol Sulfate (Ventolin 0.083% Nebulizer Soln -) 1 amp NEB RQ4H [facility] Last Admin: 10/27/18 16:14 Dose: 1 amp Enalapril Maleate (Vasotec -) 5 mg PO DAILY [facility] Last Admin: 10/27/18 09:21 Dose: 5 mg Heparin Sodium (Porcine) (Heparin -) 5,000 unit SQ TID [facility] Last Admin: 10/27/18 13:52 Dose: 5,000 unit Piperacillin Sod/Tazobactam (Sod 3.375 gm/ Dextrose) 50 mls @ 100 mls/hr IVPB Q8H-IV [facility]; Protocol Last Admin: 10/27/18 09:22 Dose: 100 mls/hr Metoprolol Tartrate (Lopressor -) 50 mg PO BID [facility] Last Admin: 10/27/18 09:20 Dose: 50 mg Nifedipine (Procardia Xl -) 60 mg PO DAILY [facility] Last Admin: 10/27/18 09:22 Dose: 60 mg Nystatin/Triamcinolone Acetonide (Mycolog Ii Ointment -) 1 applic TP BID [facility] Last Admin: 10/27/18 09:21 Dose: 1 applic Ofloxacin (Ocuflox 0.3% Eye Drops -) 1 drop OU Q4HWA [facility] Last Admin: 10/27/18 13:52 Dose: 1 drop Oxcarbazepine (Trileptal) 300 mg PO BID [facility] Last Admin: 10/27/18 09:21 Dose: 300 mg Timolol Maleate (Timoptic 0.5%) 1 drop OU DAILY [facility] Last Admin: 10/27/18 09:22 Dose: 1 drop - Objective Vital Signs: Vital Signs Temperature 97.8 F 10/27/18 14:20 Pulse Rate 90 10/27/18 14:20 Respiratory Rate 22 H 10/27/18 14:20 Blood Pressure 138/54 L 10/27/18 14:20 O2 Sat by Pulse Oximetry (%) 96 10/27/18 09:00 Constitutional: Yes: No Distress, Obese Cardiovascular: Yes: Regular Rate and Rhythm, S1, S2 Respiratory: Yes: CTA Bilaterally Gastrointestinal: Yes: Normal Bowel Sounds, Soft. No: Tenderness Extremities: Yes: Other Edema: Yes Labs: CBC, BMP 10/27/18 05:30 10/26/18 06:30 INR, PTT INR 1.04 (0.83-1.09) 10/13/18 08:25 Assessment/Plan ALTERED MENTAL STATUS-IMPROVED ? MENINGITIS AZOTEMIA-IMPROVED D/C ANTIBIOTICS , ACV DAY# 14 OBSERVE OFF
[2018-10-28] MEDS: ALBUTEROL SO4 0.083% IH SOL 2.5 MG/3 ML VIAL.NEB. NEB SCH ×6 (00:23→19:12)
[2018-10-28] MEDS: OFLOXACIN 0.3% OPHTHALMIC SOLUTION 5 ML BOTTLE OU SCH ×5 (06:55→23:00)
[2018-10-28] MEDS: HEPARIN NA (PORCINE) 5,000 UNITS/ML 1ML VIAL SQ SCH ×3 (06:55→22:59)
--- NOTE | 2018-10-28 09:57 | PN ---
Teaching Attending Note Name of Resident: Louise Sims ATTENDING PHYSICIAN STATEMENT I saw and evaluated the patient. I reviewed the resident's note and discussed the case with the resident. I agree with the resident's findings and plan as documented with exceptions below. SUBJECTIVE: patient seen and examined. Reports had a 'flip out moment with her sister' this AM and wanted to leave. Calm and co-operative currently, happy with the care in the hospital and agrees to stay and amenable to SNF. Denies any complaints otherwise. OBJECTIVE: Vital Signs Period Temp Pulse Resp BP Sys/Lewis Pulse Ox Last 24 Hr 97.4 F-98.6 F 89-101 18-22 135-162/54-92 97-97 Intake & Output 10/25/18 10/26/18 10/27/18 10/28/18 23:59 23:59 23:59 23:59 Intake Total 995 1430 360 250 Balance 995 1430 360 250 Weight 228 lb 12.8 oz General: sitting in bed in no acute distress Chest: limited by habitus, no rales or wheezing Abdomen:Soft, obese, NT Extremities: improved pedal edema Skin: resolving excoriation, no new erythema or discharge noted Home Medications Medication Instructions Recorded Aspirin [ASA -] 81 mg PO DAILY 12/29/15 Metoprolol Tartrate [Lopressor -] 50 mg PO BID #60 tab 10/26/17 Nifedipine [Procardia Xl] 60 mg PO DAILY #30 tab 10/26/17 Oxcarbazepine 150 mg PO BID #60 tablet 10/26/17 Timolol 0.5% [Timoptic 0.5%] 1 drop OU DAILY #1 bottle 10/26/17 Hydrochlorothiazide [Hctz -] 25 mg PO DAILY 08/09/18 Active Medications Acetaminophen (Tylenol -) 650 mg PO Q6H PRN PRN Reason: FEVER Albuterol Sulfate (Ventolin 0.083% Nebulizer Soln -) 1 amp NEB RQ4H [facility] Last Admin: 10/28/18 08:14 Dose: Not Given Enalapril Maleate (Vasotec -) 5 mg PO DAILY [facility] Last Admin: 10/27/18 09:21 Dose: 5 mg Heparin Sodium (Porcine) (Heparin -) 5,000 unit SQ TID [facility] Last Admin: 10/28/18 06:55 Dose: 5,000 unit Metoprolol Tartrate (Lopressor -) 50 mg PO BID [facility] Last Admin: 10/27/18 21:14 Dose: 50 mg Nifedipine (Procardia Xl -) 60 mg PO DAILY [facility] Last Admin: 10/27/18 09:22 Dose: 60 mg Nystatin/Triamcinolone Acetonide (Mycolog Ii Ointment -) 1 applic TP BID [facility] Last Admin: 10/27/18 21:15 Dose: 1 applic Ofloxacin (Ocuflox 0.3% Eye Drops -) 1 drop OU Q4HWA [facility] Last Admin: 10/28/18 06:55 Dose: 1 drop Oxcarbazepine (Trileptal) 300 mg PO BID [facility] Last Admin: 10/27/18 21:14 Dose: 300 mg Timolol Maleate (Timoptic 0.5%) 1 drop OU DAILY [facility] Last Admin: 10/27/18 09:22 Dose: 1 drop ASSESSMENT AND PLAN: 58 yof with PMhx of R haemorrhagic stroke, complex partial seizure disorder due to the same, HTN, HLD admitted with witnessed seizure, course complicated by fevers, AMS. -Sepsis,Suspected Left basilar Aspiration PNA from seizure/medications, s/p emperic Ceftriaxone/Acyclovir for meningitis/encephalatis -RAMYA, from hypovolumi/ATN from sepsis/poor oral intake, vs medication induced vs rhabdomyolysis, no evidence of obstruction -Witnessed seizure -Encephalopathy, infection vs seizure vs post ictal vs from meds -Acute on chronic diastolic heart failure exacerbation -Left conjunctivitis -Hypokalemia -Hypernatremia, resolved -H/o right sided haemorrhagic stroke -HTN -HLD Plan: Off antibiotics, no further fevers. Cultures neg, MRI brain noted, LP with elevated protein otherwise neg. Neurology input noted, carbamazepine increased, no new seizures or concerns. EEG abnormal but neg for epileptiform activity. Attempted to leave hospital today, stated 'had a flip out moment with sister' but calm and agreable to stay and SNF. Appropriate and OX3 currently. Seen by psych, no concerns noted. Soft diet with aspiration precautions. Lasix prn. 2D echo noted. Avoid IVF for now. Metoprolol/nifedipine/Enalapril, resume HCTZ. Nephrology input noted. Renal/bladder US with no concerns. RAMYA resolved. Monitor off IVF. DVTPPX heparin DVTPPX Dispo dc to SNF when bed available. Plan discussed with patient and nursing. Care co-cordinated with social work.
[2018-10-28] MEDS: ENALAPRIL MALEATE 5 MG TABLET (FP) PO SCH (10:16)
[2018-10-28] MEDS: HYDROCHLOROTHIAZIDE 25 MG TABLET (FP) PO SCH (10:16)
[2018-10-28] MEDS: METOPROLOL TARTRATE 50 MG TABLET (FP) PO SCH ×2 (10:16→23:00)
[2018-10-28] MEDS: OXcarbazepine 300 MG/5 ML 250 ML BULK BOTTLE PO SCH ×2 (10:17→23:00)
[2018-10-28] MEDS: NYSTATIN/TRIAMCINOLONE TOPICAL OINTMENT 15 GM TUBE TP SCH ×2 (10:18→23:00)
[2018-10-28] MEDS: NIFEdipine E.R 60 MG TABLET (UD) PO SCH (10:18)
[2018-10-28] MEDS: TIMOLOL 0.5% OPHTHALMIC SOL 5 ML BOTTLE OU SCH (10:19)
[2018-10-28] MEDS ORDERED: ONDANSETRON 4 MG/2 ML VIAL IVPB ONE (12:47)
[2018-10-28] MEDS: ACETAMINOPHEN 325 MG TABLET (FP) PO PRN (15:10)
--- NOTE | 2018-10-28 18:44 | PN ---
Progress Note (short form) - Note Progress Note: Patient seen for Psych eval. case discussed with staff. Reports of acute change in Mental status, she became confused, disoriented , thought closet was can elevator. Began wandering to other patients rooms and alfaro ways. on 1. MS: alert, confused, slurred speech, unable to engage in any meaningful conversation. an acute change in MS since yesterday. cognition; Poor. REC: Continue with for safety. 2) ? organic reason for acute AMS.3) ? underlying Psych Illness. patient denied any yesterday. May be we should call aptients sister and get better History about Mental Illlness. 3) No psych meds.
--- NOTE | 2018-10-28 19:11 | PN ---
Physical Exam: SUBJECTIVE: Patient seen and examined. She is feeling sick, just vomited and is complaining of chills. OBJECTIVE: Vital Signs Period Temp Pulse Resp BP Sys/Lewis Pulse Ox Last 24 Hr 98.1 F-100.4 F 82-112 18-20 124-159/59-92 97-99 GENERAL: The patient is awake, alert, sitting in bed. HEAD: Normal with no signs of trauma. EYES: PERRL, extraocular movements intact. ENT: Oropharynx clear without exudates, moist mucous membranes. NECK: Trachea midline, full range of motion, supple. LUNGS: Clear to auscultation bilaterally, no wheezes, no crackles, no accessory muscle use. HEART: Distant heart sounds, regular rate and rhythm, S1, S2 without murmur, rub or gallop. ABDOMEN: Obese, soft, nontender, nondistended, normoactive bowel sounds, no guarding, no masses. EXTREMITIES: 2+ pulses, warm, well-perfused, 1+ edema. NEUROLOGICAL: Normal speech, gait not observed. PSYCH: Normal mood, normal affect. SKIN: Warm, dry, peeling skin throughout, no rash. Active Medications Generic Name Dose Route Start Last Admin Trade Name Freq PRN Reason Stop Dose Admin Acetaminophen 650 mg 10/24/18 20:25 10/28/18 15:10 Tylenol - PO 650 mg Q6H PRN Administration FEVER Albuterol Sulfate 1 amp 10/25/18 00:00 10/28/18 16:07 Ventolin 0.083% Nebulizer Soln - NEB Not Given RQ4H JOSEF Enalapril Maleate 5 mg 10/25/18 10:00 10/28/18 10:16 Vasotec - PO 5 mg DAILY JOSEF Administration Heparin Sodium (Porcine) 5,000 unit 10/24/18 22:00 10/28/18 13:17 Heparin - SQ 5,000 unit TID JOSEF Administration Hydrochlorothiazide 25 mg 10/28/18 10:00 10/28/18 10:16 Hctz - PO 25 mg DAILY JOSEF Administration Metoprolol Tartrate 50 mg 10/24/18 22:00 10/28/18 10:16 Lopressor - PO 50 mg BID JOSEF Administration Nifedipine 60 mg 10/25/18 10:00 10/28/18 10:18 Procardia Xl - PO 60 mg DAILY JOSEF Administration Nystatin/Triamcinolone Acetonide 1 applic 10/26/18 23:15 10/28/18 10:18 Mycolog Ii Ointment - TP 1 applic BID JOSEF Administration Ofloxacin 1 drop 10/24/18 22:00 10/28/18 18:50 Ocuflox 0.3% Eye Drops - OU 1 drop Q4HWA JOSEF Administration Oxcarbazepine 300 mg 10/24/18 22:00 10/28/18 10:17 Trileptal PO 300 mg BID JOSEF Administration Timolol Maleate 1 drop 10/25/18 10:00 10/28/18 10:19 Timoptic 0.5% OU 1 drop DAILY JOSEF Administration ASSESSMENT/PLAN: 58 year old female with a significant past medical history of R sided hemorrhagic stroke with complex partial seizures as a result, HTN, HLD, admitted s/p seizure episode. Acute metabolic encephalopathy -unknown cause for now, likely infectious, possible HCAP after seizure episode, r/o meningitis, LP nl, done late, PCR HSV neg -AMS worse today, confused -vomited, fever, new blood cultures collected -Zosyn and Acyclovir stopped -Strep pneumo. neg -Psychiatry cleared the patient, will follow up with recs Acute respiratory failure with hypoxia -resolved, Oxygen 97% on RA -continue to monitor, fluids stopped Skin peeling: -dermatology consulted -likely due to Zosyn -mycostatin RAMYA: -resolved -avoid nephrotoxins -renal sonogram with no acute pathology Pulmonary edema -improved clinically Seizure -continue trileptal HTN -controlled -continue lopressor 50 mg BID, procardia 60 mg qd and Enalapril 5 mg History of CVA -stable -MRI reviewed, consulted Neurology Obesity (BMI 30-39.9) -counseling provided DVT PPX: heparin F/E/N: no/no changes/soft diet Dispo> telemetry monitoring, no plans for DC since new fever, AMS Problem List - Problems (1) Acute metabolic encephalopathy Code(s): G93.41 - METABOLIC ENCEPHALOPATHY (2) Acute respiratory failure with hypoxia Code(s): J96.01 - ACUTE RESPIRATORY FAILURE WITH HYPOXIA (3) Pulmonary edema Code(s): J81.1 - CHRONIC PULMONARY EDEMA Qualifiers: Chronicity: acute Qualified Code(s): J81.0 - Acute pulmonary edema (4) Seizure Code(s): R56.9 - UNSPECIFIED CONVULSIONS (5) Cerebrovascular accident (CVA) Code(s): I63.9 - CEREBRAL INFARCTION, UNSPECIFIED Qualifiers: CVA mechanism: other Qualified Code(s): I63.89 - Other cerebral infarction (6) DVT prophylaxis Code(s): GML1945 - (7) Edema Code(s): R60.9 - EDEMA, UNSPECIFIED Qualifiers: Edema type: unspecified Qualified Code(s): R60.9 - Edema, unspecified (8) HTN (hypertension), benign Code(s): I10 - ESSENTIAL (PRIMARY) HYPERTENSION (9) History of CVA (cerebrovascular accident) Code(s): Z86.73 - PRSNL HX OF TIA (TIA), AND CEREB INFRC W/O RESID DEFICITS (10) Obesity (BMI 30-39.9) Code(s): E66.9 - OBESITY, UNSPECIFIED (11) Acute kidney injury Code(s): N17.9 - ACUTE KIDNEY FAILURE, UNSPECIFIED (12) CKD (chronic kidney disease) stage 3, GFR 30-59 ml/min Code(s): N18.3 - CHRONIC KIDNEY DISEASE, STAGE 3 (MODERATE) Visit type - Emergency Visit Emergency Visit: Yes ED Registration Date: 10/13/18 Care time: The patient presented to the Emergency Department on the above date and was hospitalized for further evaluation of their emergent condition. - New Patient This patient is new to me today: No - Critical Care Critical Care patient: No - Discharge Referral Referred to [facility] Med P.C.: No
[2018-10-28] MEDS ORDERED: PT OWN MED DRAWER 7, Y5N ONE (21:02)
[2018-10-28] MEDS ORDERED: ACETAMINOPHEN 1000 MG/100 ML VIAL (NON FORMULARY) IVPB ONE (21:11)
[2018-10-29] MEDS: ALBUTEROL SO4 0.083% IH SOL 2.5 MG/3 ML VIAL.NEB. NEB SCH ×6 (04:00→20:40)
[2018-10-29] MEDS: HEPARIN NA (PORCINE) 5,000 UNITS/ML 1ML VIAL SQ SCH ×3 (06:12→22:06)
[2018-10-29] MEDS: OFLOXACIN 0.3% OPHTHALMIC SOLUTION 5 ML BOTTLE OU SCH ×5 (06:12→22:05)
[2018-10-29] MEDS: ACETAMINOPHEN 325 MG TABLET (FP) PO PRN ×3 (06:13→22:07)
[2018-10-29 09:20] LABS: BASO % 0.4 % (0-2.0); EOS % 0.2 % (0-4.5); HEMATOCRIT 31.8 % (32.4-45.2); HEMOGLOBIN 10.5 GM/dL (10.7-15.3); LYMPH % 5.4 % (8-40); MCH 24.8 pg (25.7-33.7); MCHC 33.1 g/dl (32.0-36.0); MEAN CELL VOLUME 74.9 fl (80-96); MEAN PLT VOLUME 7.4 fl (7.5-11.1); MONO % 4.8 % (3.8-10.2); NEUT % 89.2 % (42.8-82.8); PLATELET COUNT 453 K/MM3 (134-434); RBC 4.24 M/mm3 (3.60-5.2); RDW 18.3 % (11.6-15.6); WHITE BLOOD COUNT 9.8 K/mm3 (4.0-10.0)
--- NOTE | 2018-10-29 09:46 | PN ---
Progress Note (short form) - Note Progress Note: confused and febrile, agitated started having fever yesterday had chills and vomiting followed by fever zosyn d/yana 10/27 (for pneumonia) intermittently is able to answer questions and follow simple commands ate breakfast (fed by aide) Vital Signs Period Temp Pulse Resp BP Sys/Lewis Pulse Ox Last 24 Hr 98.1 F-103 F 82-123 18-20 101-153/58-109 97-97 neck- supple cor-rrr lungs clear abd soft,nt ext no edema scaly skin all over with dry plaques on elbows CBC, BMP 10/29/18 09:08 Microbiology 10/23/18 19:35 Blood Culture - Final Blood - Peripheral Venous NO GROWTH AFTER 5 DAYS INCUBATION 10/23/18 19:25 Blood Culture - Final Blood - Peripheral Venous NO GROWTH AFTER 5 DAYS INCUBATION blood culture pending-10/28 a/p fevers again await cxray ?recurrent aspiration-if cxray is abnormal will resume zosyn/add vanco ?vasculitis blood culture pending should have neurology followup elevated cpk history seizures history of CVA d/w hospitalist
[2018-10-29 09:53] LABS: ALBUMIN 2.3 g/dl (3.4-5.0); ALK PHOS 64 U/L (45-117); ANION GAP 10 MMOL/L (8-16); BILIRUBIN,TOTAL 0.5 mg/dL (0.2-1); BLOOD UREA NITROGEN 35 mg/dL (7-18); CALCIUM 7.7 mg/dL (8.5-10.1); CHLORIDE 106 mmol/L (98-107); CO2 22 mmol/L (21-32); CREATININE 3.2 mg/dL (0.55-1.3); GLUCOSE,RANDOM 80 mg/dL (74-106); MAGNESIUM 1.9 mg/dL (1.8-2.4); PHOSPHOROUS 4.4 mg/dL (2.5-4.9); POTASSIUM 5.2 mmol/L (3.5-5.1); SGOT/AST 33 U/L (15-37); SGPT/ALT 40 U/L (13-61); SODIUM 138 mmol/L (136-145); TOT PROT 6.2 g/dl (6.4-8.2)
[2018-10-29] MEDS ORDERED: VANCOMYCIN 1 GM PREMIX - 1 GM/200 ML BAG IVPB ONE (10:45)
[2018-10-29] MEDS ORDERED: HALOPERIDOL LACTATE 5 MG/ML IM ONE ×3 (11:00→22:45)
[2018-10-29] MEDS: METOPROLOL TARTRATE 50 MG TABLET (FP) PO SCH ×2 (11:05→22:06)
[2018-10-29] MEDS: NYSTATIN/TRIAMCINOLONE TOPICAL OINTMENT 15 GM TUBE TP SCH ×2 (11:06→22:06)
[2018-10-29] MEDS: NIFEdipine E.R 60 MG TABLET (UD) PO SCH (11:06)
[2018-10-29] MEDS: TIMOLOL 0.5% OPHTHALMIC SOL 5 ML BOTTLE OU SCH (11:08)
[2018-10-29] MEDS ORDERED: DEXTROSE 5%-WATER - 50 ML IVPB ONE ×2 (11:10→16:14)
[2018-10-29] MEDS ORDERED: PIPERACILLIN/TAZOBACTAM 2.25 GM VIAL IVPB ONE ×2 (11:10→16:14)
[2018-10-29] MEDS ORDERED: PT OWN MED DRAWER 7, Y5N ONE ×3 (11:11→21:49)
[2018-10-29] MEDS: SODIUM CHLORIDE 1,000 ML IV SCH (11:13)
[2018-10-29] MEDS: PIPERACILLIN/TAZOB 2.25 GM 2.25 GM in DEXTROSE 5%-WATER - 50 ML IVPB SCH ×2 (11:14→17:55)
[2018-10-29] MEDS: OXcarbazepine 300 MG/5 ML 250 ML BULK BOTTLE PO SCH ×2 (11:29→22:06)
--- NOTE | 2018-10-29 11:42 | PN ---
Physical Exam: SUBJECTIVE: Patient seen and examined, confused again, intermittently says 'yes ' and responds to conversations but overall restless in bed and poor interaction. Similar to last week. OBJECTIVE: Vital Signs Period Temp Pulse Resp BP Sys/Lewis Pulse Ox Last 24 Hr 98.9 F-103 F 96-123 18-20 101-153/58-109 97-97 Intake & Output 10/26/18 10/27/18 10/28/18 10/29/18 23:59 23:59 23:59 23:59 Intake Total 4569 022 5084 200 Balance 2274 959 7942 200 Weight 228 lb 12.8 oz GENERAL: confused restless, lethargic with minimal responses in bed Neck: soft, supple Chest; poor effort and co-operation, unable to appreciate rales or wheezing HEENT: PERRL, no conjunctial injection, oral cavity with no erythema or discharge Abdomen:soft, obese, no grimacing on exam, no voluntary or involuntary guarding or rigidity Extremities; no new edema Neuro : confused, restless, lethargic, responds to name and in mono syllables to a few questions, moves all extremities, facial symmetric, PERRL, tongue midline, unable to do a sensory exam, (Current exam similar to my assessment last week) Laboratory Results - last 24 hr 10/29/18 10/29/18 09:08 09:08 WBC 9.8 RBC 4.24 Hgb 10.5 L Hct 31.8 L MCV 74.9 L MCH 24.8 L MCHC 33.1 RDW 18.3 H Plt Count 453 H D MPV 7.4 L Absolute Neuts (auto) 8.8 H Neutrophils % 89.2 H D Lymphocytes % 5.4 L D Monocytes % 4.8 Eosinophils % 0.2 D Basophils % 0.4 Nucleated RBC % 0 Sodium 138 Potassium 5.2 H Chloride 106 Carbon Dioxide 22 Anion Gap 10 BUN 35 H Creatinine 3.2 H Creat Clearance w eGFR 14.93 Random Glucose 80 Calcium 7.7 L Phosphorus 4.4 Magnesium 1.9 Total Bilirubin 0.5 AST 33 ALT 40 Alkaline Phosphatase 64 Total Protein 6.2 L Albumin 2.3 L Active Medications Generic Name Dose Route Start Last Admin Trade Name Freq PRN Reason Stop Dose Admin Acetaminophen 650 mg 10/24/18 20:25 10/29/18 06:13 Tylenol - PO 650 mg Q6H PRN Administration FEVER Albuterol Sulfate 1 amp 10/25/18 00:00 10/29/18 09:02 Ventolin 0.083% Nebulizer Soln - NEB 1 amp RQ4H JOSEF Administration Heparin Sodium (Porcine) 5,000 unit 10/24/18 22:00 10/29/18 06:12 Heparin - SQ 5,000 unit TID JOSEF Administration Sodium Chloride 1,000 mls @ 75 mls/hr 10/29/18 10:45 10/29/18 11:13 Normal Saline - IV 75 mls/hr ASDIR JOSEF Administration Piperacillin Sod/Tazobactam 50 mls @ 100 mls/hr 10/29/18 11:00 10/29/18 11:14 Sod 2.25 gm/ Dextrose IVPB 100 mls/hr Q8H-IV JOSEF Administration Protocol Vancomycin HCl 1 gm in 200 mls @ 166.667 mls/hr 10/29/18 10:45 Vancomycin 1 Gm Premix - IVPB 10/29/18 11:56 ONCE ONE Protocol Metoprolol Tartrate 50 mg 10/24/18 22:00 10/29/18 11:05 Lopressor - PO 50 mg BID JOSEF Administration Nifedipine 60 mg 10/25/18 10:00 10/29/18 11:06 Procardia Xl - PO 60 mg DAILY JOSEF Administration Nystatin/Triamcinolone Acetonide 1 applic 10/26/18 23:15 10/29/18 11:06 Mycolog Ii Ointment - TP 1 applic BID JOSEF Administration Ofloxacin 1 drop 10/24/18 22:00 10/29/18 11:08 Ocuflox 0.3% Eye Drops - OU 1 drop Q4HWA JOSEF Administration Oxcarbazepine 300 mg 10/24/18 22:00 10/29/18 11:29 Trileptal PO 300 mg BID JOSEF Administration Timolol Maleate 1 drop 10/25/18 10:00 10/29/18 11:08 Timoptic 0.5% OU 1 drop DAILY JOSEF Administration CXr result and images reviewed ASSESSMENT/PLAN: 58 yof with PMhx of R haemorrhagic stroke, complex partial seizure disorder due to the same, HTN, HLD admitted with witnessed seizure, course complicated by fevers, AMS. -Sepsis,Suspected Left basilar Aspiration PNA from seizure/medications, s/p emperic Ceftriaxone/Acyclovir for meningitis/encephalatis -RAMYA, from hypovolumi/ATN from sepsis/poor oral intake, vs medication induced vs rhabdomyolysis, no evidence of obstruction -Witnessed seizure -Encephalopathy, infection vs seizure vs post ictal vs from meds -Acute on chronic diastolic heart failure exacerbation -Left conjunctivitis -Hypokalemia -Hypernatremia, resolved -H/o right sided haemorrhagic stroke -HTN -HLD Plan: Recurrent fevers, AMS, RAMYA today. Per RN, fevers post 2 episodes of vomiting, ?aspiration. CXR with ?LLL infiltrate. Discussed with ID, emperic zosyn/vancomycin. FOllow up blood cx. Send ua/urine cultures. Prior work up including MRI brain/LP/CT chest/A/P have not shown a clear source of infection. Has been emperically treated with ceftriaxone/acyclovir for possible meningitis, then zosyn for suspected aspiration. Unclear if ?vasculitis vs other inflammatory process contributing to recurrent symptoms. Check VDRL/YARED/ANCA/Complement/Cryoglobulin. [place], strict I/Os. Start IV hydration with close volume status monitoring. d/c enalapril/HCTZ for now. Reconsult renal/Neurology. Low dose haldol trial as patient unco-operative with tests and treatment. Carbamazepine increased this admission, monitor. EEG abnormal but neg for epileptiform activity. Ongoing psychiatric concerns. psych input noted. Will continue to retrieve more details if any about prior history or concerns. Soft diet with aspiration precautions. Lasix prn. 2D echo noted. Resume IVF as above cautiously. Metoprolol/nifedipine as tolerated. DVTPPX heparin DVTPPX Dispo planning on hold given new clinical concerns. Plan discussed with nursing. Care co-ordinated with ID. Ongoing multiple active concerns with need for close monitoring and treatment. Visit type - Emergency Visit Emergency Visit: Yes ED Registration Date: 10/13/18 Care time: The patient presented to the Emergency Department on the above date and was hospitalized for further evaluation of their emergent condition. - New Patient This patient is new to me today: No - Critical Care Critical Care patient: No - Discharge Referral Referred to [facility] Med P.C.: No
[2018-10-29 15:43] VITALS: BMI 35.8
--- NOTE | 2018-10-29 15:43 | CON.NEP ---
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 ...: No - Alcohol/Substance Use Hx Alcohol Use: No - Smoking History Smoking history: Never smoked Have you smoked in the past 12 months: No - Social History Usual Living Arrangement: With Significant Other History of Recent Travel: No Home Medications - Allergies Allergies/Adverse Reactions: Allergies Allergy/AdvReac Type Severity Reaction Status Date / Time levetiracetam [From Keppra] AdvReac Verified 10/12/18 22:21 phenytoin sodium AdvReac Verified 10/12/18 22:21 [From Dilantin] phenytoin sodium extended AdvReac Verified 10/12/18 22:21 [From Dilantin] - Home Medications Home Medications: Ambulatory Orders Aspirin [ASA -] 81 mg PO DAILY 12/29/15 Metoprolol Tartrate [Lopressor -] 50 mg PO BID #60 tab 10/26/17 Nifedipine [Procardia Xl] 60 mg PO DAILY #30 tab 10/26/17 Oxcarbazepine 150 mg PO BID #60 tablet 10/26/17 Timolol 0.5% [Timoptic 0.5%] 1 drop OU DAILY #1 bottle 10/26/17 Hydrochlorothiazide [Hctz -] 25 mg PO DAILY 08/09/18 Nephrology Consult - Height Height: 5 ft 7 in - Weight Weight: 228 lb 12.8 oz - BMI Body Mass Index (BMI): 35.8 - Lab Results CBC,BMP: CBC, BMP 10/29/18 09:08 10/29/18 09:08 Anion Gap: Anion Gap Anion Gap 10 MMOL/L (8-16) 10/29/18 09:08 - Physical Examination Vital Signs: Vital Signs Temperature 101.6 F H 10/29/18 14:16 Pulse Rate 108 H 10/29/18 14:16 Respiratory Rate 24 H 10/29/18 14:16 Blood Pressure 145/80 10/29/18 14:16 O2 Sat by Pulse Oximetry (%) 97 10/28/18 22:00 Constitutional: Yes: Obese Eyes: Yes: WNL, Conjunctiva Clear, EOM Intact HENT: Yes: WNL, Atraumatic, Normocephalic Neck: Yes: WNL, Supple, Trachea Midline Cardiovascular: Yes: WNL, Regular Rate and Rhythm Respiratory: Yes: WNL, Regular, CTA Bilaterally Gastrointestinal: Yes: WNL, Normal Bowel Sounds Musculoskeletal: Yes: WNL Extremities: Yes: WNL Edema: No Integumentary: Yes: WNL Neurological: Yes: Confusion Psychiatric: Yes: Agitated Assessment/Plan acute renal failure probably hemodynamic low renal perfusion 2/2 dehydration and acute fever recent episode of darwin probably not fully recovered fever being worked up Plan- urine spot sodium keep olivas catheter and monitor i and O iv ns bolus then continue at 75 cc
[2018-10-29] MEDS ORDERED: SODIUM CHLORIDE 250 ML IV STA (15:53)
[2018-10-29 16:58] LABS: URINE APPEARANCE CLOUDY; URINE BACTERIA 2.9 /hpf (NEGATIVE); URINE BILIRUBIN NEGATIVE (NEGATIVE); URINE CASTS 22 /hpf (0-8); URINE COLOR YELLOW; URINE GLUCOSE (UA) NEGATIVE (NEGATIVE); URINE KETONE NEGATIVE (NEGATIVE); URINE LEUK ESTERASE TRACE (NEGATIVE); URINE NITRITE NEGATIVE (NEGATIVE); URINE PROTEIN 2+ (NEGATIVE); URINE RBC 3 /hpf (0-4); URINE UROBILINOGEN 0.2 mg/dL (0.2-1.0); URINE WBC 5 /hpf (0-5)
--- NOTE | 2018-10-29 23:27 | PN ---
Progress Note (short form) - Note Progress Note: Multiple pages and a condition 10 called for Pt. being agitated and aggressive. Haldol 2.5 mg IM given. Will give Benadryl IV 50mg. EKG ordered after initial Haldol dose however unable to be obtained because Pt. non-cooperative.
[2018-10-29] MEDS: ENALAPRIL MALEATE 5 MG TABLET (FP) PO SCH (23:51)
[2018-10-29] MEDS: HYDROCHLOROTHIAZIDE 25 MG TABLET (FP) PO SCH (23:51)
[2018-10-30] MEDS: ALBUTEROL SO4 0.083% IH SOL 2.5 MG/3 ML VIAL.NEB. NEB SCH ×6 (00:14→19:53)
[2018-10-30] MEDS ORDERED: PIPERACILLIN/TAZOBACTAM 2.25 GM VIAL IVPB ONE ×3 (00:53→17:04)
[2018-10-30] MEDS ORDERED: DEXTROSE 5%-WATER - 50 ML IVPB ONE ×3 (00:54→17:04)
[2018-10-30] MEDS: PIPERACILLIN/TAZOB 2.25 GM 2.25 GM in DEXTROSE 5%-WATER - 50 ML IVPB SCH ×3 (01:14→17:34)
[2018-10-30 05:59] LABS: BASO % 0.7 % (0-2.0); EOS % 0.9 % (0-4.5); HEMATOCRIT 29.1 % (32.4-45.2); HEMOGLOBIN 9.9 GM/dL (10.7-15.3); LYMPH % 17.6 % (8-40); MCH 25.2 pg (25.7-33.7); MCHC 34.1 g/dl (32.0-36.0); MEAN PLT VOLUME 7.6 fl (7.5-11.1); MONO % 3.3 % (3.8-10.2); NEUT % 77.5 % (42.8-82.8); PLATELET COUNT 429 K/MM3 (134-434); RBC 3.94 M/mm3 (3.60-5.2); RDW 18.5 % (11.6-15.6); WHITE BLOOD COUNT 7.6 K/mm3 (4.0-10.0)
[2018-10-30 06:32] LABS: ALBUMIN 2.5 g/dl (3.4-5.0); ALK PHOS 63 U/L (45-117); ANION GAP 10 MMOL/L (8-16); BILIRUBIN,TOTAL 0.4 mg/dL (0.2-1); BLOOD UREA NITROGEN 46 mg/dL (7-18); CALCIUM 7.3 mg/dL (8.5-10.1); CHLORIDE 109 mmol/L (98-107); CO2 22 mmol/L (21-32); CREATININE 3.2 mg/dL (0.55-1.3); GLUCOSE,RANDOM 78 mg/dL (74-106); MAGNESIUM 2.1 mg/dL (1.8-2.4); PHOSPHOROUS 4.2 mg/dL (2.5-4.9); POTASSIUM 4.3 mmol/L (3.5-5.1); SGOT/AST 32 U/L (15-37); SGPT/ALT 39 U/L (13-61); SODIUM 140 mmol/L (136-145); TOT PROT 6.2 g/dl (6.4-8.2)
[2018-10-30] MEDS ORDERED: PT OWN MED DRAWER 7, Y5N ONE ×3 (06:54→22:41)
[2018-10-30] MEDS: HEPARIN NA (PORCINE) 5,000 UNITS/ML 1ML VIAL SQ SCH ×3 (06:58→22:51)
[2018-10-30] MEDS: OFLOXACIN 0.3% OPHTHALMIC SOLUTION 5 ML BOTTLE OU SCH ×5 (06:59→22:51)
[2018-10-30] MEDS: SODIUM CHLORIDE 1,000 ML IV SCH (07:00)
--- NOTE | 2018-10-30 08:16 | CON.NEURO ---
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 ...: No - Alcohol/Substance Use Hx Alcohol Use: No - Smoking History Smoking history: Never smoked Have you smoked in the past 12 months: No - Social History Usual Living Arrangement: With Significant Other History of Recent Travel: No Home Medications - Allergies Allergies/Adverse Reactions: Allergies Allergy/AdvReac Type Severity Reaction Status Date / Time levetiracetam [From Keppra] AdvReac Verified 10/12/18 22:21 phenytoin sodium AdvReac Verified 10/12/18 22:21 [From Dilantin] phenytoin sodium extended AdvReac Verified 10/12/18 22:21 [From Dilantin] - Home Medications Home Medications: Ambulatory Orders Aspirin [ASA -] 81 mg PO DAILY 12/29/15 Metoprolol Tartrate [Lopressor -] 50 mg PO BID #60 tab 10/26/17 Nifedipine [Procardia Xl] 60 mg PO DAILY #30 tab 10/26/17 Oxcarbazepine 150 mg PO BID #60 tablet 10/26/17 Timolol 0.5% [Timoptic 0.5%] 1 drop OU DAILY #1 bottle 10/26/17 Hydrochlorothiazide [Hctz -] 25 mg PO DAILY 08/09/18 Physical Exam-Neuro Vital Signs: Vital Signs Temperature 98.2 F 10/30/18 05:59 Pulse Rate 117 H 10/29/18 22:00 Respiratory Rate 20 10/29/18 22:00 Blood Pressure 119/72 10/29/18 22:00 O2 Sat by Pulse Oximetry (%) 92 L 10/29/18 21:00 Labs: CBC, BMP 10/30/18 05:30 10/30/18 05:30 INR, PTT INR 1.04 (0.83-1.09) 10/13/18 08:25 Assessment/Plan CC Altered mental status HPI 58 year old female history of Right parietal lobe hemorrhagic stroke with complex partial seizure , HTN, HLD. Patient came with seizure like activity, her ct head and mri showed old encephalomalacia, there is no acute stroke. She has spinal tap done and it is normal. She is being treated with abx over the time and she has several allergy to medicaiton and she is being treated with trileptal 300 mg po bid. Patient has not had any seizure . She continue to have agitation and strange behavior . As per daughter she was fine at home. She spike fever again couple of days ago and was started on abx. There is no hisotyr of alcohol abuse. Allergies: levetiracetam, phenytoin sodium, phenytoin sodium extended Social history: No smoking. No alcohol. No illicit drugs. PMH as above. SH,ROS,FH reviewed in chart HOME MEDICATIONS: Home Medications Medication Instructions Recorded Aspirin [ASA -] 81 mg PO DAILY 12/29/15 Metoprolol Tartrate [Lopressor -] 50 mg PO BID #60 tab 10/26/17 Nifedipine [Procardia Xl] 60 mg PO DAILY #30 tab 10/26/17 Oxcarbazepine 150 mg PO BID #60 tablet 10/26/17 Timolol 0.5% [Timoptic 0.5%] 1 drop OU DAILY #1 bottle 10/26/17 Hydrochlorothiazide [Hctz -] 25 mg PO DAILY 08/09/18 NEUROLOGICAL EXAMINATION Alert , oriented x 1, speech is normal and no neck stiffness eomi, pupils reactive and no face asymmetry there is mild ? left sided hemiparesis vs uncooperative examination left hemiparesis could be old ct head showed old encephalomalacia eeg reviewed mri of brain showed no acute stroke csf reviewed Assessment/Plan Agitation and confusion seems to be Delirium secondary to old stroke and intercurrent illness . Unlikley to be CHILD CARE PROVIDER vasculitis, stroke, status epilepticus or meningitis at this time. Plan: Suggest to repeat ct head,as she is not cooperative and ? left hemiparesis - repeat eeg - b12,folate tsh - if any seizure activity reported , suggest to increase AED Thanking you so much Mandeep Prieto MD
--- NOTE | 2018-10-30 08:43 | PN ---
Progress Note (short form) - Note Progress Note: remains agitated more alert able to answer questions knows she is at the hospital seen by neurology this am afebrile this am Vital Signs Period Temp Pulse Resp BP Sys/Lewis Pulse Ox Last 24 Hr 98.2 F-101.6 F 108-117 18-24 119-145/58-80 92 cor-rrr lungs decreased bs at bases abd soft,nt ext no edema scaly skin all over with dry plaques on elbows CBC, BMP 10/30/18 05:30 10/30/18 05:30 Microbiology 10/28/18 14:50 Blood - Peripheral Venous Blood Culture - Preliminary NO GROWTH OBTAINED AFTER 24 HOURS, INCUBATION TO CONTINUE FOR 4 DAYS. 10/23/18 19:35 Blood - Peripheral Venous Blood Culture - Final NO GROWTH AFTER 5 DAYS INCUBATION 10/23/18 19:25 Blood - Peripheral Venous Blood Culture - Final NO GROWTH AFTER 5 DAYS INCUBATION 10/18/18 14:50 Blood - Peripheral Venous Blood Culture - Final NO GROWTH AFTER 5 DAYS INCUBATION 10/18/18 14:50 Blood - Peripheral Venous Blood Culture - Final NO GROWTH AFTER 5 DAYS INCUBATION 10/17/18 18:32 Cerebral Spinal Fluid - Lumbar Puncture Gram Stain - Final 10/17/18 18:32 Cerebral Spinal Fluid - Lumbar Puncture CSF Culture - Final 10/18/18 22:30 Urine - Urine Clean Catch Urine Culture - Final NO GROWTH OBTAINED 10/13/18 20:15 Blood - Peripheral Venous Blood Culture - Final NO GROWTH AFTER 5 DAYS INCUBATION 10/13/18 18:30 Blood - Peripheral Venous Blood Culture - Final NO GROWTH AFTER 5 DAYS INCUBATION 10/18/18 15:33 Cerebral Spinal Fluid - Lumbar Puncture Streptococcus pneumoniae Antigen (M - Final 10/15/18 16:45 Urine For Antigen Detection Legionella Antigen - Final 10/15/18 16:45 Urine For Antigen Detection Streptococcus pneumoniae Antigen (M - Final 10/13/18 16:00 Urine - Urine - Catheterized Urine Culture - Final NO GROWTH OBTAINED Current Medications Acetaminophen (Tylenol -) 650 mg PO Q6H PRN PRN Reason: FEVER Last Admin: 10/29/18 22:07 Dose: 650 mg Albuterol Sulfate (Ventolin 0.083% Nebulizer Soln -) 1 amp NEB RQ4H JOSEF Last Admin: 10/30/18 03:52 Dose: Not Given Heparin Sodium (Porcine) (Heparin -) 5,000 unit SQ TID [facility] Last Admin: 10/30/18 06:58 Dose: 5,000 unit Sodium Chloride (Normal Saline -) 1,000 mls @ 75 mls/hr IV ASDIR [facility] Last Admin: 10/30/18 07:00 Dose: 75 mls/hr Piperacillin Sod/Tazobactam (Sod 2.25 gm/ Dextrose) 50 mls @ 100 mls/hr IVPB Q8H-IV JOSEF; Protocol Last Admin: 10/30/18 01:14 Dose: 100 mls/hr Metoprolol Tartrate (Lopressor -) 50 mg PO BID [facility] Last Admin: 10/29/18 22:06 Dose: 50 mg Nifedipine (Procardia Xl -) 60 mg PO DAILY [facility] Last Admin: 10/29/18 11:06 Dose: 60 mg Nystatin/Triamcinolone Acetonide (Mycolog Ii Ointment -) 1 applic TP BID [facility] Last Admin: 10/29/18 22:06 Dose: 1 applic Ofloxacin (Ocuflox 0.3% Eye Drops -) 1 drop OU Q4HWA [facility] Last Admin: 10/30/18 06:59 Dose: 1 drop Oxcarbazepine (Trileptal) 300 mg PO BID [facility] Last Admin: 10/29/18 22:06 Dose: 300 mg Timolol Maleate (Timoptic 0.5%) 1 drop OU DAILY [facility] Last Admin: 10/29/18 11:08 Dose: 1 drop a/p afebrile today, remains confused and agitated back on zosyn for possible pneumonia RAMYA- on IVF-on ivf, check cpk ?vasculitis blood culture pending f/u vasculitis workup consider derm consult history seizures history of CVA d/w hospitalist
[2018-10-30] MEDS: METOPROLOL TARTRATE 50 MG TABLET (FP) PO SCH ×2 (10:06→22:51)
[2018-10-30] MEDS: NIFEdipine E.R 60 MG TABLET (UD) PO SCH (10:06)
[2018-10-30] MEDS: TIMOLOL 0.5% OPHTHALMIC SOL 5 ML BOTTLE OU SCH (10:06)
[2018-10-30] MEDS: NYSTATIN/TRIAMCINOLONE TOPICAL OINTMENT 15 GM TUBE TP SCH ×2 (10:07→22:51)
[2018-10-30] MEDS: OXcarbazepine 300 MG/5 ML 250 ML BULK BOTTLE PO SCH ×2 (10:10→22:52)
--- NOTE | 2018-10-30 10:27 | PN ---
Physical Exam: SUBJECTIVE: Patient seen and examined, confused, responds to name, goes on tangential conversations, but follows most commands with reinforcement. Unable to check for ROS as keeps going on tangent. OBJECTIVE: Vital Signs Period Temp Pulse Resp BP Sys/Lewis Pulse Ox Last 24 Hr 98.2 F-101.6 F 108-117 20-24 119-145/72-80 92 Intake & Output 10/27/18 10/28/18 10/29/18 10/30/18 23:59 23:59 23:59 23:59 Intake Total 360 1200 1855 635 Output Total 300 400 Balance 360 1200 1555 235 Weight 228 lb 12.8 oz 228 lb 12.8 oz GENERAL: confused restless, more awake today, audible wheezing Neck: soft, supple Chest; poor effort and co-operation, scattered upper wheezing, limiting air entry and lung exam otherwise. HEENT: PERRL, no conjunctial injection, oral cavity with no erythema or discharge Abdomen:soft, obese, no grimacing on exam, no voluntary or involuntary guarding or rigidity Extremities; no new edema Neuro : confused, restless, more awake though goes on tangential conversations, intermittently follows instructions, moves all extremities, hand diplomatic courier 5/5, facial symmetry, PERRL, tongue midline, unable to do a sensory exam, Laboratory Results - last 24 hr 10/29/18 10/29/18 10/29/18 16:11 16:11 16:11 WBC RBC Hgb Hct MCV MCH MCHC RDW Plt Count MPV Absolute Neuts (auto) Neutrophils % Lymphocytes % Monocytes % Eosinophils % Basophils % Nucleated RBC % Sodium Potassium Chloride Carbon Dioxide Anion Gap BUN Creatinine Creat Clearance w eGFR Random Glucose Calcium Phosphorus Magnesium Total Bilirubin AST ALT Alkaline Phosphatase Total Protein Albumin Urine Color Yellow Urine Appearance Cloudy Urine pH 5.0 Ur Specific [place] 1.017 Urine Protein 2+ H Urine Glucose (UA) Negative Urine Ketones Negative Urine Blood 1+ H Urine Nitrite Negative Urine Bilirubin Negative Urine Urobilinogen 0.2 Ur Leukocyte Esterase Trace Urine WBC (Auto) 5 Urine RBC (Auto) 3 Urine Casts (Auto) 22 U Pathogenic Cast Auto Few granular casts U Epithel Cells (Auto) 5.0 Urine Bacteria (Auto) 2.9 Ur Random Sodium 20 L Urine Creatinine 148.0 Random Vancomycin 10/30/18 10/30/18 10/30/18 05:30 05:30 06:00 WBC 7.6 RBC 3.94 Hgb 9.9 L Hct 29.1 L MCV 74.0 L MCH 25.2 L MCHC 34.1 RDW 18.5 H Plt Count 429 MPV 7.6 Absolute Neuts (auto) 5.9 Neutrophils % 77.5 Lymphocytes % 17.6 D Monocytes % 3.3 L Eosinophils % 0.9 D Basophils % 0.7 Nucleated RBC % 0 Sodium 140 Potassium 4.3 Chloride 109 H Carbon Dioxide 22 Anion Gap 10 BUN 46 H Creatinine 3.2 H Creat Clearance w eGFR 14.93 Random Glucose 78 Calcium 7.3 L Phosphorus 4.2 Magnesium 2.1 Total Bilirubin 0.4 AST 32 ALT 39 Alkaline Phosphatase 63 Total Protein 6.2 L Albumin 2.5 L Urine Color Urine Appearance Urine pH Ur Specific [place] Urine Protein Urine Glucose (UA) Urine Ketones Urine Blood Urine Nitrite Urine Bilirubin Urine Urobilinogen Ur Leukocyte Esterase Urine WBC (Auto) Urine RBC (Auto) Urine Casts (Auto) U Pathogenic Cast Auto U Epithel Cells (Auto) Urine Bacteria (Auto) Ur Random Sodium Urine Creatinine Random Vancomycin 12.2 L Active Medications Generic Name Dose Route Start Last Admin Trade Name Freq PRN Reason Stop Dose Admin Acetaminophen 650 mg 10/24/18 20:25 10/29/18 22:07 Tylenol - PO 650 mg Q6H PRN Administration FEVER Albuterol Sulfate 1 amp 10/25/18 00:00 10/30/18 10:21 Ventolin 0.083% Nebulizer Soln - NEB 1 amp RQ4H JOSEF Administration Heparin Sodium (Porcine) 5,000 unit 10/24/18 22:00 10/30/18 06:58 Heparin - SQ 5,000 unit TID JOSEF Administration Sodium Chloride 1,000 mls @ 75 mls/hr 10/29/18 10:45 10/30/18 07:00 Normal Saline - IV 75 mls/hr ASDIR JOSEF Administration Piperacillin Sod/Tazobactam 50 mls @ 100 mls/hr 10/29/18 11:00 10/30/18 10:05 Sod 2.25 gm/ Dextrose IVPB 100 mls/hr Q8H-IV JOSEF Administration Protocol Metoprolol Tartrate 50 mg 10/24/18 22:00 10/30/18 10:06 Lopressor - PO 50 mg BID JOSEF Administration Nifedipine 60 mg 10/25/18 10:00 10/30/18 10:06 Procardia Xl - PO 60 mg DAILY JOSEF Administration Nystatin/Triamcinolone Acetonide 1 applic 10/26/18 23:15 10/30/18 10:07 Mycolog Ii Ointment - TP 1 applic BID JOSEF Administration Ofloxacin 1 drop 10/24/18 22:00 10/30/18 10:06 Ocuflox 0.3% Eye Drops - OU 1 drop Q4HWA JOSEF Administration Oxcarbazepine 300 mg 10/24/18 22:00 10/30/18 10:10 Trileptal PO 300 mg BID JOSEF Administration Timolol Maleate 1 drop 10/25/18 10:00 10/30/18 10:06 Timoptic 0.5% OU 1 drop DAILY JOSEF Administration Microbiology 10/28/18 14:03 Blood - Peripheral Venous Blood Culture - Preliminary NO GROWTH OBTAINED AFTER 24 HOURS, INCUBATION TO CONTINUE FOR 4 DAYS. 10/28/18 14:50 Blood - Peripheral Venous Blood Culture - Preliminary NO GROWTH OBTAINED AFTER 24 HOURS, INCUBATION TO CONTINUE FOR 4 DAYS. 10/23/18 19:35 Blood - Peripheral Venous Blood Culture - Final NO GROWTH AFTER 5 DAYS INCUBATION 10/23/18 19:25 Blood - Peripheral Venous Blood Culture - Final NO GROWTH AFTER 5 DAYS INCUBATION 10/18/18 14:50 Blood - Peripheral Venous Blood Culture - Final NO GROWTH AFTER 5 DAYS INCUBATION 10/18/18 14:50 Blood - Peripheral Venous Blood Culture - Final NO GROWTH AFTER 5 DAYS INCUBATION 10/17/18 18:32 Cerebral Spinal Fluid - Lumbar Puncture Gram Stain - Final 10/17/18 18:32 Cerebral Spinal Fluid - Lumbar Puncture CSF Culture - Final 10/18/18 22:30 Urine - Urine Clean Catch Urine Culture - Final NO GROWTH OBTAINED 10/13/18 20:15 Blood - Peripheral Venous Blood Culture - Final NO GROWTH AFTER 5 DAYS INCUBATION 10/13/18 18:30 Blood - Peripheral Venous Blood Culture - Final NO GROWTH AFTER 5 DAYS INCUBATION 10/18/18 15:33 Cerebral Spinal Fluid - Lumbar Puncture Streptococcus pneumoniae Antigen (M - Final 10/15/18 16:45 Urine For Antigen Detection Legionella Antigen - Final 10/15/18 16:45 Urine For Antigen Detection Streptococcus pneumoniae Antigen (M - Final 10/13/18 16:00 Urine - Urine - Catheterized Urine Culture - Final NO GROWTH OBTAINED CT brain results reviewed ASSESSMENT/PLAN: 58 yof with PMhx of R haemorrhagic stroke, complex partial seizure disorder due to the same, HTN, HLD admitted with witnessed seizure, course complicated by fevers, AMS. -Sepsis,Suspected Left basilar Aspiration PNA from seizure/medications, s/p emperic Ceftriaxone/Acyclovir for meningitis/encephalatis -RAMYA, from hypovolumi/ATN from sepsis/poor oral intake, vs medication induced vs rhabdomyolysis, no evidence of obstruction -Witnessed seizure -Encephalopathy, infection vs seizure vs post ictal vs from meds -Acute on chronic diastolic heart failure exacerbation -Left conjunctivitis -Hypokalemia -Hypernatremia, resolved -H/o right sided haemorrhagic stroke -HTN -HLD Plan: Ongoing confusion, fever curve seems to have improved. ID input noted. Zosyn day 2, s/p vancomycin x 1 yesterday, follow up levels. Wheezing today, repeat CXR, nebs prb, cautious hydration. ua noted, follow up urine/blood cx. Prior work up including MRI brain/LP/CT chest/A/P have not shown a clear source of infection. Has been emperically treated with ceftriaxone/acyclovir for possible meningitis, then zosyn for suspected aspiration. Unclear if ?vasculitis vs other inflammatory process contributing to recurrent symptoms. Check VDRL/YARED/ANCA/Complement/Cryoglobulin. neurology input noted. Current exam non concerning for left sided weakness. CT brain with no new concerns. Follow up repeat EEG/B12/folate. [place], strict I/Os. Cautious hydration. Off enalapril/HCTZ. Low dose haldol trial as patient unco-operative with tests and treatment. Carbamazepine increased this admission, monitor. EEG abnormal but neg for epileptiform activity. Ongoing psychiatric concerns. psych input noted. 1:1. Discussed with sister, no prior psychiatric history or concerns. Soft diet with aspiration precautions. Lasix prn. 2D echo noted. Metoprolol/nifedipine as tolerated. DVTPPX heparin DVTPPX Dispo planning on hold given new clinical concerns. Plan discussed with nursing. Care co-ordinated with ID and neurology. Ongoing multiple active concerns with need for close monitoring and treatment. Visit type - Emergency Visit Emergency Visit: Yes ED Registration Date: 10/13/18 Care time: The patient presented to the Emergency Department on the above date and was hospitalized for further evaluation of their emergent condition. - New Patient This patient is new to me today: No - Critical Care Critical Care patient: No - Discharge Referral Referred to [facility] Med P.C.: No
[2018-10-30] MEDS ORDERED: ALBUTEROL SO4 0.083% IH SOL 2.5 MG/3 ML VIAL.NEB. NEB PRN (10:36)
[2018-10-30] MEDS: SODIUM CHLORIDE 0.45% 1,000 ML IV SCH (10:52)
--- NOTE | 2018-10-30 17:49 | PN ---
Progress Note (short form) - Note Progress Note: 58 year old woman with hx of Right sided hemorrhagic stroke with complex partial seizures as a result, HTN, hyperlipidemia who presented from home with seizures and found to be febrile with RAMYA. Seizures Fevers/Sepsis syndrome RAMYA (normal baseline renal function) Hx of CVA Current Medications Acetaminophen (Tylenol -) 650 mg PO Q6H PRN PRN Reason: FEVER Last Admin: 10/29/18 22:07 Dose: 650 mg Albuterol Sulfate (Ventolin 0.083% Nebulizer Soln -) 1 amp NEB RQID JOSEF Last Admin: 10/30/18 15:12 Dose: 1 amp Albuterol Sulfate (Ventolin 0.083% Nebulizer Soln -) 1 amp NEB Q4H PRN PRN Reason: SHORT OF BREATH/WHEEZING Heparin Sodium (Porcine) (Heparin -) 5,000 unit SQ TID [facility] Last Admin: 10/30/18 14:02 Dose: 5,000 unit Piperacillin Sod/Tazobactam (Sod 2.25 gm/ Dextrose) 50 mls @ 100 mls/hr IVPB Q8H-IV JOSEF; Protocol Last Admin: 10/30/18 17:34 Dose: 100 mls/hr Sodium Chloride (1/2 Normal Saline) 1,000 mls @ 75 mls/hr IV ASDIR [facility] Last Admin: 10/30/18 10:52 Dose: 75 mls/hr Metoprolol Tartrate (Lopressor -) 50 mg PO BID [facility] Last Admin: 10/30/18 10:06 Dose: 50 mg Nifedipine (Procardia Xl -) 60 mg PO DAILY [facility] Last Admin: 10/30/18 10:06 Dose: 60 mg Nystatin/Triamcinolone Acetonide (Mycolog Ii Ointment -) 1 applic TP BID [facility] Last Admin: 10/30/18 10:07 Dose: 1 applic Ofloxacin (Ocuflox 0.3% Eye Drops -) 1 drop OU Q4HWA [facility] Last Admin: 10/30/18 14:03 Dose: 1 drop Oxcarbazepine (Trileptal) 300 mg PO BID [facility] Last Admin: 10/30/18 10:10 Dose: 300 mg Timolol Maleate (Timoptic 0.5%) 1 drop OU DAILY [facility] Last Admin: 10/30/18 10:06 Dose: 1 drop Last Vital Signs Temp Pulse Resp BP Pulse Ox 99.2 F 94 H 24 H 103/67 95 10/30/18 14:00 10/30/18 14:00 10/30/18 14:00 10/30/18 14:00 10/30/18 09:00 less confused, more responsive monitored one to one Lungs clear Heart reg Abd soft nontender Ext no edema CBC, BMP 10/30/18 05:30 10/30/18 05:30 IMP- ARF nonoliguric seems to be making more urine- 250 cc this shift so far Plan- continue IV NS F/u labs in am
[2018-10-31] MEDS ORDERED: DEXTROSE 5%-WATER - 50 ML IVPB ONE ×3 (01:21→17:45)
[2018-10-31] MEDS ORDERED: PIPERACILLIN/TAZOBACTAM 2.25 GM VIAL IVPB ONE ×3 (01:21→17:45)
[2018-10-31] MEDS: PIPERACILLIN/TAZOB 2.25 GM 2.25 GM in DEXTROSE 5%-WATER - 50 ML IVPB SCH ×3 (01:54→17:55)
[2018-10-31] MEDS: HEPARIN NA (PORCINE) 5,000 UNITS/ML 1ML VIAL SQ SCH ×2 (06:44→13:50)
[2018-10-31] MEDS: OFLOXACIN 0.3% OPHTHALMIC SOLUTION 5 ML BOTTLE OU SCH ×5 (06:44→21:08)
[2018-10-31 07:56] LABS: HEMATOCRIT 30.4 % (32.4-45.2); HEMOGLOBIN 10.2 GM/dL (10.7-15.3); MCH 24.9 pg (25.7-33.7); MCHC 33.5 g/dl (32.0-36.0); MEAN CELL VOLUME 74.4 fl (80-96); MEAN PLT VOLUME 7.9 fl (7.5-11.1); PLATELET COUNT 471 K/MM3 (134-434); RBC 4.08 M/mm3 (3.60-5.2); RDW 18.6 % (11.6-15.6); WHITE BLOOD COUNT 5.6 K/mm3 (4.0-10.0)
[2018-10-31] MEDS: ALBUTEROL SO4 0.083% IH SOL 2.5 MG/3 ML VIAL.NEB. NEB SCH ×4 (07:57→20:18)
[2018-10-31 08:10] LABS: INR 0.99 (0.83-1.09); PROTHROMBIN TIME (PATIENT) 11.7 SEC (9.7-13.0)
--- NOTE | 2018-10-31 08:22 | PN ---
Teaching Attending Note Name of Resident: Louise Sims ATTENDING PHYSICIAN STATEMENT I saw and evaluated the patient. I reviewed the resident's note and discussed the case with the resident. I agree with the resident's findings and plan as documented with exceptions below. SUBJECTIVE: Patient seen and examined, more awake and oriented, co-operative, denies any pain, dyspnea or complaints. OBJECTIVE: Vital Signs Period Temp Pulse Resp BP Sys/Lewis Pulse Ox Last 24 Hr 97.7 F-99.2 F 91-103 18-24 103-149/64-74 95-97 Intake & Output 10/28/18 10/29/18 10/30/18 10/31/18 23:59 23:59 23:59 23:59 Intake Total 1200 1855 2505 0 Output Total 300 2100 600 Balance 1200 1555 405 -600 Weight 228 lb 12.8 oz General: sitting in bed, calmer, no acute distress, no audible wheezing today Chest: no wheezing today, positive air entry, exam limited by habitus, no rales or wheezing appreciated HEENT:PERRL,EOMI Abdomen:soft, obese, NT, no suprapubic or CVA tenderness Extremities: 1+ pedal edema Neck: soft, supple Neuro: awake, pleasant, co-operative,oriented to self and place, follows commands, moves all extremities freely, EOMI, PERRL, facial symmetry Home Medications Medication Instructions Recorded Aspirin [ASA -] 81 mg PO DAILY 12/29/15 Metoprolol Tartrate [Lopressor -] 50 mg PO BID #60 tab 10/26/17 Nifedipine [Procardia Xl] 60 mg PO DAILY #30 tab 10/26/17 Oxcarbazepine 150 mg PO BID #60 tablet 10/26/17 Timolol 0.5% [Timoptic 0.5%] 1 drop OU DAILY #1 bottle 10/26/17 Hydrochlorothiazide [Hctz -] 25 mg PO DAILY 08/09/18 Active Medications Acetaminophen (Tylenol -) 650 mg PO Q6H PRN PRN Reason: FEVER Last Admin: 10/29/18 22:07 Dose: 650 mg Albuterol Sulfate (Ventolin 0.083% Nebulizer Soln -) 1 amp NEB RQID JOSEF Last Admin: 10/31/18 07:57 Dose: 1 amp Albuterol Sulfate (Ventolin 0.083% Nebulizer Soln -) 1 amp NEB Q4H PRN PRN Reason: SHORT OF BREATH/WHEEZING Heparin Sodium (Porcine) (Heparin -) 5,000 unit SQ TID [facility] Last Admin: 10/31/18 06:44 Dose: 5,000 unit Piperacillin Sod/Tazobactam (Sod 2.25 gm/ Dextrose) 50 mls @ 100 mls/hr IVPB Q8H-IV JOSEF; Protocol Last Admin: 10/31/18 01:54 Dose: 100 mls/hr Sodium Chloride (1/2 Normal Saline) 1,000 mls @ 75 mls/hr IV ASDIR [facility] Last Admin: 10/30/18 10:52 Dose: 75 mls/hr Metoprolol Tartrate (Lopressor -) 50 mg PO BID [facility] Last Admin: 10/30/18 22:51 Dose: 50 mg Nifedipine (Procardia Xl -) 60 mg PO DAILY [facility] Last Admin: 10/30/18 10:06 Dose: 60 mg Nystatin/Triamcinolone Acetonide (Mycolog Ii Ointment -) 1 applic TP BID [facility] Last Admin: 10/30/18 22:51 Dose: 1 applic Ofloxacin (Ocuflox 0.3% Eye Drops -) 1 drop OU Q4HWA [facility] Last Admin: 10/31/18 06:44 Dose: 1 drop Oxcarbazepine (Trileptal) 300 mg PO BID [facility] Last Admin: 10/30/18 22:52 Dose: 300 mg Timolol Maleate (Timoptic 0.5%) 1 drop OU DAILY [facility] Last Admin: 10/30/18 10:06 Dose: 1 drop Laboratory Results - last 24 hr 10/29/18 10/30/18 10/30/18 12:00 13:15 13:15 WBC RBC Hgb Hct MCV MCH MCHC RDW Plt Count MPV Neutrophils % Lymphocytes % Nucleated RBC % ESR 38 H PT with INR INR Creatine Kinase 262 H Creatine Kinase Index 1.7 CK-MB (CK-2) 4.7 H C-Reactive Protein 18.4 H Vitamin B12 659 Serum Folate 11 Urine Eosinophils None seen RPR Titer 10/30/18 10/31/18 10/31/18 13:15 07:30 07:30 WBC 5.6 RBC 4.08 Hgb 10.2 L Hct 30.4 L MCV 74.4 L MCH 24.9 L MCHC 33.5 RDW 18.6 H Plt Count 471 H MPV 7.9 Neutrophils % No Result Required. Lymphocytes % No Result Required. Nucleated RBC % 0 ESR PT with INR 11.70 INR 0.99 Creatine Kinase Creatine Kinase Index CK-MB (CK-2) C-Reactive Protein Vitamin B12 Serum Folate Urine Eosinophils RPR Titer Nonreactive Microbiology 10/30/18 13:15 Blood - Peripheral Venous Blood Parasites Smear - Final 10/28/18 14:50 Blood - Peripheral Venous Blood Culture - Preliminary NO GROWTH OBTAINED AFTER 48 HOURS, INCUBATION TO CONTINUE FOR 3 DAYS. 10/28/18 14:03 Blood - Peripheral Venous Blood Culture - Preliminary NO GROWTH OBTAINED AFTER 24 HOURS, INCUBATION TO CONTINUE FOR 4 DAYS. 10/23/18 19:35 Blood - Peripheral Venous Blood Culture - Final NO GROWTH AFTER 5 DAYS INCUBATION 10/23/18 19:25 Blood - Peripheral Venous Blood Culture - Final NO GROWTH AFTER 5 DAYS INCUBATION 10/18/18 14:50 Blood - Peripheral Venous Blood Culture - Final NO GROWTH AFTER 5 DAYS INCUBATION 10/18/18 14:50 Blood - Peripheral Venous Blood Culture - Final NO GROWTH AFTER 5 DAYS INCUBATION 10/17/18 18:32 Cerebral Spinal Fluid - Lumbar Puncture Gram Stain - Final 10/17/18 18:32 Cerebral Spinal Fluid - Lumbar Puncture CSF Culture - Final 10/18/18 22:30 Urine - Urine Clean Catch Urine Culture - Final NO GROWTH OBTAINED 10/13/18 20:15 Blood - Peripheral Venous Blood Culture - Final NO GROWTH AFTER 5 DAYS INCUBATION 10/13/18 18:30 Blood - Peripheral Venous Blood Culture - Final NO GROWTH AFTER 5 DAYS INCUBATION 10/18/18 15:33 Cerebral Spinal Fluid - Lumbar Puncture Streptococcus pneumoniae Antigen (M - Final 10/15/18 16:45 Urine For Antigen Detection Legionella Antigen - Final 10/15/18 16:45 Urine For Antigen Detection Streptococcus pneumoniae Antigen (M - Final 10/13/18 16:00 Urine - Urine - Catheterized Urine Culture - Final NO GROWTH OBTAINED ASSESSMENT AND PLAN: 58 yof with PMhx of R haemorrhagic stroke, complex partial seizure disorder due to the same, HTN, HLD admitted with witnessed seizure, course complicated by fevers, AMS. -Sepsis,Suspected Left basilar Aspiration PNA from seizure/medications, s/p emperic Ceftriaxone/Acyclovir for meningitis/encephalatis -RAMYA, from hypovolumi/ATN from sepsis/poor oral intake, vs medication induced vs rhabdomyolysis, no evidence of obstruction -Witnessed seizure -Encephalopathy, infection vs seizure vs post ictal vs from meds -Acute on chronic diastolic heart failure exacerbation -Left conjunctivitis -Hypokalemia -Hypernatremia, resolved -H/o right sided haemorrhagic stroke -HTN -HLD Plan: Clinically improved, afebrile, mental status better. Etiology of events last 48 hours unclear, episode followed vomiting, ? aspiration with recurrent LLE pneumonia vs pneumonitis. ID input noted, zosyn day 3, vanco renal dosing per ID. Follow up VDRL/YARED/ANCA/Complement/Cryoglobulin. Blood parasite screen neg. Blood cx neg so far. Follow up urine cx. Prior work up including MRI brain/LP/CT chest/A/P have not shown a clear source of infection. Has been emperically treated with ceftriaxone/acyclovir for possible meningitis, then zosyn for suspected aspiration. Unclear if ?vasculitis vs other inflammatory process contributing to recurrent symptoms. Neurology input noted. Current exam non concerning for left sided weakness. CT brain with no new concerns. Follow up repeat EEG/B12/folate. No wheezing today, repeat CXR noted, nebs prb, cautious hydration. [place], strict I/Os. Cautious hydration. Off enalapril/HCTZ. Carbamazepine increased this admission, monitor. EEG abnormal but neg for epileptiform activity.Follow up repeat study. Ongoing psychiatric concerns. psych input noted. 1:1. Discussed with sister, no prior psychiatric history or concerns. Soft diet with aspiration precautions. Lasix prn. 2D echo noted. Metoprolol/nifedipine as tolerated. DVTPPX heparin DVTPPX Dispo planning on hold given new clinical concerns. Plan discussed with nursing.
[2018-10-31 08:30] LABS: ALBUMIN 2.5 g/dl (3.4-5.0); ALK PHOS 63 U/L (45-117); ANION GAP 7 MMOL/L (8-16); BILIRUBIN,TOTAL 0.5 mg/dL (0.2-1); BLOOD UREA NITROGEN 34 mg/dL (7-18); CALCIUM 7.6 mg/dL (8.5-10.1); CHLORIDE 113 mmol/L (98-107); CO2 24 mmol/L (21-32); CREATININE 1.9 mg/dL (0.55-1.3); GLUCOSE,RANDOM 76 mg/dL (74-106); MAGNESIUM 2.4 mg/dL (1.8-2.4); PHOSPHOROUS 3.2 mg/dL (2.5-4.9); POTASSIUM 4.5 mmol/L (3.5-5.1); SGOT/AST 17 U/L (15-37); SGPT/ALT 31 U/L (13-61); SODIUM 144 mmol/L (136-145); TOT PROT 6.5 g/dl (6.4-8.2)
--- NOTE | 2018-10-31 08:58 | PN ---
Progress Note (short form) - Note Progress Note: Neurology CHIEF COMPLAINT: seizure HISTORY OF PRESENT ILLNESS: 58 year old female with a significant past medical history of R sided hemorrhagic stroke with complex partial seizures as a result, HTN, HLD, who presented to the ED with complaints of reportedly seizure like episode that occured 1.5 hours prior to ED arrival. As per patient's family at bedside patient stated that she felt her seizure coming on. According to notes, family reported her legs were shaking. EMS reports giving 5 versed IV in the field. Seizures resolved at that time. Family reported no trauma, fevers, chills. Per med recon, she is on trileptal 150 mg BID. Was contacted by ER overnight and patient reportedly with seizure event in ED, reportedly given Ativan. CT head completed and without acute changes, labs reviewed. EEG reviewed and demonstrated evidence of encephalopathy but no abnormal epileptiform activity. Appreciate coverage over the past week. Patient with fluctuating mental status improved now awake, alert, interactive and recognizes me. Spinal tap completed and with 5 wbc, 7rbc, increased protein to 90, glucose normal. Has been on broad spectrum Abx with improvement in mental status. Trileptal stabe at 300mg. MRI brain completed and without acute changes. More calm and cooperative. Active Medications Acetaminophen (Tylenol -) 650 mg PO Q6H PRN PRN Reason: FEVER Last Admin: 10/29/18 22:07 Dose: 650 mg Albuterol Sulfate (Ventolin 0.083% Nebulizer Soln -) 1 amp NEB RQID JOSEF Last Admin: 10/31/18 07:57 Dose: 1 amp Albuterol Sulfate (Ventolin 0.083% Nebulizer Soln -) 1 amp NEB Q4H PRN PRN Reason: SHORT OF BREATH/WHEEZING Heparin Sodium (Porcine) (Heparin -) 5,000 unit SQ TID JOSEF Last Admin: 10/31/18 06:44 Dose: 5,000 unit Piperacillin Sod/Tazobactam (Sod 2.25 gm/ Dextrose) 50 mls @ 100 mls/hr IVPB Q8H-IV JOSEF; Protocol Last Admin: 10/31/18 01:54 Dose: 100 mls/hr Sodium Chloride (1/2 Normal Saline) 1,000 mls @ 75 mls/hr IV ASDIR JOSEF Last Admin: 10/30/18 10:52 Dose: 75 mls/hr Metoprolol Tartrate (Lopressor -) 50 mg PO BID [facility] Last Admin: 10/30/18 22:51 Dose: 50 mg Nifedipine (Procardia Xl -) 60 mg PO DAILY [facility] Last Admin: 10/30/18 10:06 Dose: 60 mg Nystatin/Triamcinolone Acetonide (Mycolog Ii Ointment -) 1 applic TP BID [facility] Last Admin: 10/30/18 22:51 Dose: 1 applic Ofloxacin (Ocuflox 0.3% Eye Drops -) 1 drop OU Q4HWA [facility] Last Admin: 10/31/18 06:44 Dose: 1 drop Oxcarbazepine (Trileptal) 300 mg PO BID [facility] Last Admin: 10/30/18 22:52 Dose: 300 mg Timolol Maleate (Timoptic 0.5%) 1 drop OU DAILY [facility] Last Admin: 10/30/18 10:06 Dose: 1 drop PHYSICAL EXAMINATION Vital Signs Period Temp Pulse Resp BP Sys/Lewis Pulse Ox Last 24 Hr 97.7 F-99.2 F 91-103 18-24 103-149/64-74 95-97 GENERAL:awake, alert, interactive, follows basic commands HEAD: NC/AT EYES: EOMI, MICA , sclera anicteric ENT: moist mucous membrane NECK: Supple, no JVD, obese LUNGS: CTA B/L, no crackles no wheezing no accessory muscle use. HEART: RRR, NSR, normal s1, s2, murmur no M/R/G ABDOMEN: Obese ,Soft, ND, NT, +BS 4 Q, no CVA Tenderness LOWER EXTREMITIES: no edema, +2DP pulse, NEUROLOGICAL: Awake, alert, but not fully oriented, moving all extremities, not aggresive, sensory intact, gait deferred CBCD WBC 5.6 K/mm3 (4.0-10.0) 10/31/18 07:30 RBC 4.08 M/mm3 (3.60-5.2) 10/31/18 07:30 Hgb 10.2 GM/dL (10.7-15.3) L 10/31/18 07:30 Hct 30.4 % (32.4-45.2) L 10/31/18 07:30 MCV 74.4 fl (80-96) L 10/31/18 07:30 MCHC 33.5 g/dl (32.0-36.0) 10/31/18 07:30 RDW 18.6 % (11.6-15.6) H 10/31/18 07:30 Plt Count 471 K/MM3 (134-434) H 10/31/18 07:30 MPV 7.9 fl (7.5-11.1) 10/31/18 07:30 CMP Sodium 144 mmol/L (136-145) 10/31/18 07:30 Potassium 4.5 mmol/L (3.5-5.1) 10/31/18 07:30 Chloride 113 mmol/L (98-107) H 10/31/18 07:30 Carbon Dioxide 24 mmol/L (21-32) 10/31/18 07:30 Anion Gap 7 MMOL/L (8-16) L 10/31/18 07:30 BUN 34 mg/dL (7-18) H 10/31/18 07:30 Creatinine 1.9 mg/dL (0.55-1.3) H 10/31/18 07:30 Creat Clearance w eGFR 27.25 (>60) 10/31/18 07:30 Random Glucose 76 mg/dL (74-106) 10/31/18 07:30 Calcium 7.6 mg/dL (8.5-10.1) L 10/31/18 07:30 Total Bilirubin 0.5 mg/dL (0.2-1) 10/31/18 07:30 AST 17 U/L (15-37) 10/31/18 07:30 ALT 31 U/L (13-61) 10/31/18 07:30 Alkaline Phosphatase 63 U/L (45-117) 10/31/18 07:30 Total Protein 6.5 g/dl (6.4-8.2) 10/31/18 07:30 Albumin 2.5 g/dl (3.4-5.0) L 10/31/18 07:30 CARDIAC ENZYMES Creatine Kinase 262 U/L (26-192) H 10/30/18 13:15 Troponin I 0.03 ng/ml (0.00-0.05) 10/13/18 06:17 ASSESSMENT/PLAN: 58 year old female with a significant past medical history of R sided hemorrhagic stroke with complex partial seizures as a result, HTN, HLD, who presented to the ED with complaints of reportedly seizure like episode that occured 1.5 hours prior to ED arrival. As per patient's family at bedside patient stated that she felt her seizure coming on. According to notes, family reported her legs were shaking. EMS reports giving 5 versed IV in the field. Seizures resolved at that time. Family reported no trauma, fevers, chills. Per med recon, she is on trileptal 150 mg BID. Was contacted by ER overnight and patient reportedly with seizure event in ED, reportedly given Ativan. CT head completed and without acute changes, labs reviewed. Appreciate coverage over the weekend. Patient much improved and near baseline mental status. Spinal tap completed and with 5 wbc, 7rbc, increased protein to 90, glucose normal. Has been on broad spectrum Abx. Trileptal also increased to 300mg. Has been on broad spectrum Abx with improvement in mental status. Trileptal stabe at 300mg. MRI brain completed and without acute changes. More calm and cooperative this am , continue medical optimization. No new CVA or seizures. .
--- NOTE | 2018-10-31 09:55 | PN ---
Progress Note, Physician Chief Complaint: EVENTS NOTED DEVELOPED HIGH GRADE FEVER, ALTERED MENTAL STATUS PRESENTLY AWAKE, ALERT BUT CONFUSED TEMPS DOWN ON EMPIRIC ZOSYN BC NO GROWTH URINE C/S ENTEROCOCCUS - Current Medication List Current Medications: Active Medications Acetaminophen (Tylenol -) 650 mg PO Q6H PRN PRN Reason: FEVER Last Admin: 10/29/18 22:07 Dose: 650 mg Albuterol Sulfate (Ventolin 0.083% Nebulizer Soln -) 1 amp NEB RQID [facility] Last Admin: 10/31/18 07:57 Dose: 1 amp Albuterol Sulfate (Ventolin 0.083% Nebulizer Soln -) 1 amp NEB Q4H PRN PRN Reason: SHORT OF BREATH/WHEEZING Heparin Sodium (Porcine) (Heparin -) 5,000 unit SQ TID [facility] Last Admin: 10/31/18 06:44 Dose: 5,000 unit Piperacillin Sod/Tazobactam (Sod 2.25 gm/ Dextrose) 50 mls @ 100 mls/hr IVPB Q8H-IV JOSEF; Protocol Last Admin: 10/31/18 01:54 Dose: 100 mls/hr Sodium Chloride (1/2 Normal Saline) 1,000 mls @ 75 mls/hr IV ASDIR [facility] Last Admin: 10/30/18 10:52 Dose: 75 mls/hr Metoprolol Tartrate (Lopressor -) 50 mg PO BID [facility] Last Admin: 10/30/18 22:51 Dose: 50 mg Nifedipine (Procardia Xl -) 60 mg PO DAILY [facility] Last Admin: 10/30/18 10:06 Dose: 60 mg Nystatin/Triamcinolone Acetonide (Mycolog Ii Ointment -) 1 applic TP BID [facility] Last Admin: 10/30/18 22:51 Dose: 1 applic Ofloxacin (Ocuflox 0.3% Eye Drops -) 1 drop OU Q4HWA [facility] Last Admin: 10/31/18 06:44 Dose: 1 drop Oxcarbazepine (Trileptal) 300 mg PO BID [facility] Last Admin: 10/30/18 22:52 Dose: 300 mg Timolol Maleate (Timoptic 0.5%) 1 drop OU DAILY [facility] Last Admin: 10/30/18 10:06 Dose: 1 drop - Objective Vital Signs: Vital Signs Temperature 97.7 F 10/31/18 05:52 Pulse Rate 91 H 10/31/18 05:52 Respiratory Rate 20 10/31/18 05:52 Blood Pressure 119/74 10/31/18 05:52 O2 Sat by Pulse Oximetry (%) 97 10/30/18 21:00 Constitutional: Yes: No Distress, Obese Cardiovascular: Yes: Regular Rate and Rhythm, S1, S2 Respiratory: Yes: CTA Bilaterally Gastrointestinal: Yes: Normal Bowel Sounds, Soft, Abdomen, Obese. No: Tenderness Extremities: Yes: Other (+ R UE EDEMA) Labs: CBC, BMP 10/31/18 07:30 10/31/18 07:30 INR, PTT INR 0.99 (0.83-1.09) 10/31/18 07:30 Assessment/Plan RECURRENT FEVER ALTERED MENTAL STATUS ? ETIOLOGY AZOTEMIA-IMPROVING AWAIT C/S CONTINUE EMPIRIC ZOSYN NEURO FOLLOW UP
[2018-10-31] MEDS: METOPROLOL TARTRATE 50 MG TABLET (FP) PO SCH ×2 (10:32→21:08)
[2018-10-31] MEDS: OXcarbazepine 300 MG/5 ML 250 ML BULK BOTTLE PO SCH ×2 (10:32→21:09)
[2018-10-31] MEDS: TIMOLOL 0.5% OPHTHALMIC SOL 5 ML BOTTLE OU SCH (10:32)
[2018-10-31] MEDS: NYSTATIN/TRIAMCINOLONE TOPICAL OINTMENT 15 GM TUBE TP SCH ×2 (10:32→21:08)
[2018-10-31] MEDS: NIFEdipine E.R 60 MG TABLET (UD) PO SCH (10:33)
[2018-10-31] MEDS: SODIUM CHLORIDE 0.45% 1,000 ML IV SCH (10:33)
[2018-10-31 10:52] LABS: ANISOCYTOSIS 1+; MACROCYTOSIS 0; PLATELET ESTIMATE NORMAL; TARGET CELLS 1+
--- NOTE | 2018-10-31 16:56 | PN ---
Physical Exam: SUBJECTIVE: Patient seen and examined, feeling fine talking about great doctor that took her blood this morning. OBJECTIVE: Vital Signs Period Temp Pulse Resp BP Sys/Lewis Pulse Ox Last 24 Hr 97.7 F-98.4 F 80-91 16-20 101-131/58-74 97-97 GENERAL: The patient is awake, alert, sitting in bed. HEAD: Normal with no signs of trauma. EYES: Extraocular movements intact. ENT: Oropharynx clear without exudates, moist mucous membranes. NECK: Trachea midline, full range of motion, supple. LUNGS: Clear to auscultation bilaterally, no wheezes, no crackles, no accessory muscle use. HEART: Distant heart sounds, regular rate and rhythm, S1, S2 without murmur, rub or gallop. ABDOMEN: Obese, soft, nontender, nondistended, normoactive bowel sounds, no guarding, no masses. EXTREMITIES: 2+ pulses, warm, well-perfused, 1+ edema. NEUROLOGICAL: Normal speech, gait not observed. PSYCH: Normal mood, normal affect. SKIN: Warm, dry, no rash, dry skin on elbows. Laboratory Results - last 24 hr 10/29/18 10/31/18 10/31/18 12:00 07:30 07:30 WBC 5.6 RBC 4.08 Hgb 10.2 L Hct 30.4 L MCV 74.4 L MCH 24.9 L MCHC 33.5 RDW 18.6 H Plt Count 471 H MPV 7.9 Neutrophils % No Result Required. Neutrophils % (Manual) 47.5 Band Neutrophils % 0.0 Lymphocytes % No Result Required. Lymphocytes % (Manual) 40.4 H D Monocytes % (Manual) 6 Eosinophils % (Manual) 3.0 Basophils % (Manual) 2.0 D Myelocytes % (Man) 0 Promyelocytes % (Man) 0 Blast Cells % (Manual) 0 Nucleated RBC % 0 Metamyelocytes 0 D Hypochromia 0 Platelet Estimate Normal Polychromasia 0 Poikilocytosis 1+ Anisocytosis 1+ Microcytosis 1+ Macrocytosis 0 Target Cells 1+ Schistocytes 1+ PT with INR INR Sodium 144 Potassium 4.5 Chloride 113 H Carbon Dioxide 24 Anion Gap 7 L BUN 34 H Creatinine 1.9 H Creat Clearance w eGFR 27.25 Random Glucose 76 Calcium 7.6 L Phosphorus 3.2 Magnesium 2.4 Total Bilirubin 0.5 AST 17 ALT 31 Alkaline Phosphatase 63 Total Protein 6.5 Albumin 2.5 L TSH 1.39 Urine Eosinophils None seen 10/31/18 07:30 WBC RBC Hgb Hct MCV MCH MCHC RDW Plt Count MPV Neutrophils % Neutrophils % (Manual) Band Neutrophils % Lymphocytes % Lymphocytes % (Manual) Monocytes % (Manual) Eosinophils % (Manual) Basophils % (Manual) Myelocytes % (Man) Promyelocytes % (Man) Blast Cells % (Manual) Nucleated RBC % Metamyelocytes Hypochromia Platelet Estimate Polychromasia Poikilocytosis Anisocytosis Microcytosis Macrocytosis Target Cells Schistocytes PT with INR 11.70 INR 0.99 Sodium Potassium Chloride Carbon Dioxide Anion Gap BUN Creatinine Creat Clearance w eGFR Random Glucose Calcium Phosphorus Magnesium Total Bilirubin AST ALT Alkaline Phosphatase Total Protein Albumin TSH Urine Eosinophils Active Medications Generic Name Dose Route Start Last Admin Trade Name Freq PRN Reason Stop Dose Admin Acetaminophen 650 mg 10/24/18 20:25 10/29/18 22:07 Tylenol - PO 650 mg Q6H PRN Administration FEVER Albuterol Sulfate 1 amp 10/30/18 12:00 10/31/18 16:00 Ventolin 0.083% Nebulizer Soln - NEB 1 amp RQID JOSEF Administration Albuterol Sulfate 1 amp 10/30/18 10:36 Ventolin 0.083% Nebulizer Soln - NEB Q4H PRN SHORT OF BREATH/WHEEZING Heparin Sodium (Porcine) 5,000 unit 10/24/18 22:00 10/31/18 13:50 Heparin - SQ 5,000 unit TID JOSEF Administration Piperacillin Sod/Tazobactam 50 mls @ 100 mls/hr 10/29/18 11:00 10/31/18 10:31 Sod 2.25 gm/ Dextrose IVPB 100 mls/hr Q8H-IV JOSEF Administration Protocol Sodium Chloride 1,000 mls @ 75 mls/hr 10/30/18 10:45 10/31/18 10:33 1/2 Normal Saline IV 75 mls/hr ASDIR JOSEF Administration Metoprolol Tartrate 50 mg 10/24/18 22:00 10/31/18 10:32 Lopressor - PO 50 mg BID JOSEF Administration Nifedipine 60 mg 10/25/18 10:00 10/31/18 10:33 Procardia Xl - PO 60 mg DAILY JOSEF Administration Nystatin/Triamcinolone Acetonide 1 applic 10/26/18 23:15 10/31/18 10:32 Mycolog Ii Ointment - TP 1 applic BID JOSEF Administration Ofloxacin 1 drop 10/24/18 22:00 10/31/18 13:50 Ocuflox 0.3% Eye Drops - OU 1 drop Q4HWA JOSEF Administration Oxcarbazepine 300 mg 10/24/18 22:00 10/31/18 10:32 Trileptal PO 300 units BID JOSEF Administration Timolol Maleate 1 drop 10/25/18 10:00 10/31/18 10:32 Timoptic 0.5% OU 1 drop DAILY JOSEF Administration ASSESSMENT/PLAN: 58 year old female with a significant past medical history of R sided hemorrhagic stroke with complex partial seizures as a result, HTN, HLD, admitted s/p seizure episode. Acute metabolic encephalopathy -unknown cause for now, likely infectious, possible HCAP after seizure episode, r/o meningitis, LP nl, done late, PCR HSV neg -AMS worse over the weekend -Trileptal at 300mg, MRI brain completed and without acute changes -new blood cultures collected Group D Strep -no fever in 24 hrs -Zosyn and Acyclovir stopped, restarted Zosyn again -Strep pneumo. neg -will f/u Psych recommendations Acute respiratory failure with hypoxia -resolved, Oxygen 97% on RA -continue to monitor, fluids stopped Skin peeling: -improved -dermatology consulted -likely due to Zosyn -mycostatin RAMYA: -resolved -avoid nephrotoxins -renal sonogram with no acute pathology Pulmonary edema -improved clinically Seizure -continue trileptal HTN -controlled -continue lopressor 50 mg BID, procardia 60 mg qd and Enalapril 5 mg History of CVA -stable -MRI reviewed, consulted Neurology Obesity (BMI 30-39.9) -counseling provided DVT PPX: heparin F/E/N: no/no changes/soft diet Dispo> telemetry monitoring Problem List - Problems (1) Acute metabolic encephalopathy Code(s): G93.41 - METABOLIC ENCEPHALOPATHY (2) Acute respiratory failure with hypoxia Code(s): J96.01 - ACUTE RESPIRATORY FAILURE WITH HYPOXIA (3) Pulmonary edema Code(s): J81.1 - CHRONIC PULMONARY EDEMA Qualifiers: Chronicity: acute Qualified Code(s): J81.0 - Acute pulmonary edema (4) Seizure Code(s): R56.9 - UNSPECIFIED CONVULSIONS (5) Cerebrovascular accident (CVA) Code(s): I63.9 - CEREBRAL INFARCTION, UNSPECIFIED Qualifiers: CVA mechanism: other Qualified Code(s): I63.89 - Other cerebral infarction (6) DVT prophylaxis Code(s): VCJ8039 - (7) Edema Code(s): R60.9 - EDEMA, UNSPECIFIED Qualifiers: Edema type: unspecified Qualified Code(s): R60.9 - Edema, unspecified (8) HTN (hypertension), benign Code(s): I10 - ESSENTIAL (PRIMARY) HYPERTENSION (9) History of CVA (cerebrovascular accident) Code(s): Z86.73 - PRSNL HX OF TIA (TIA), AND CEREB INFRC W/O RESID DEFICITS (10) Obesity (BMI 30-39.9) Code(s): E66.9 - OBESITY, UNSPECIFIED (11) Acute kidney injury Code(s): N17.9 - ACUTE KIDNEY FAILURE, UNSPECIFIED (12) CKD (chronic kidney disease) stage 3, GFR 30-59 ml/min Code(s): N18.3 - CHRONIC KIDNEY DISEASE, STAGE 3 (MODERATE) Visit type - Emergency Visit Emergency Visit: Yes ED Registration Date: 10/13/18 Care time: The patient presented to the Emergency Department on the above date and was hospitalized for further evaluation of their emergent condition. - New Patient This patient is new to me today: No - Critical Care Critical Care patient: No - Discharge Referral Referred to [facility] No
--- NOTE | 2018-10-31 17:24 | PN ---
Progress Note (short form) - Note Progress Note: Renal follow up for RAMYA Pt seen and examined at the bedside no acute complaints no sob, cp, abd pain tolerating oral diet on IVF Vital Signs Temperature 97.7 F 10/31/18 05:52 Pulse Rate 80 10/31/18 15:00 Respiratory Rate 18 10/31/18 15:00 Blood Pressure 101/58 L 10/31/18 15:00 O2 Sat by Pulse Oximetry (%) 97 10/31/18 10:00 Intake & Output 10/28/18 10/29/18 10/30/18 10/31/18 23:59 23:59 23:59 23:59 Intake Total 1200 1855 2505 0 Output Total 300 2100 600 Balance 1200 1555 405 -600 Weight 103.782 kg NAD awake and alert RRR CTA no LE edema CBC, BMP 10/31/18 07:30 10/31/18 07:30 Current Medications Acetaminophen (Tylenol -) 650 mg PO Q6H PRN PRN Reason: FEVER Last Admin: 10/29/18 22:07 Dose: 650 mg Albuterol Sulfate (Ventolin 0.083% Nebulizer Soln -) 1 amp NEB RQID JOSEF Last Admin: 10/31/18 16:00 Dose: 1 amp Albuterol Sulfate (Ventolin 0.083% Nebulizer Soln -) 1 amp NEB Q4H PRN PRN Reason: SHORT OF BREATH/WHEEZING Heparin Sodium (Porcine) (Heparin -) 5,000 unit SQ TID [facility] Last Admin: 10/31/18 13:50 Dose: 5,000 unit Piperacillin Sod/Tazobactam (Sod 2.25 gm/ Dextrose) 50 mls @ 100 mls/hr IVPB Q8H-IV OJSEF; Protocol Last Admin: 10/31/18 10:31 Dose: 100 mls/hr Sodium Chloride (1/2 Normal Saline) 1,000 mls @ 75 mls/hr IV ASDIR JOSE[facility] Last Admin: 10/31/18 10:33 Dose: 75 mls/hr Metoprolol Tartrate (Lopressor -) 50 mg PO BID [facility] Last Admin: 10/31/18 10:32 Dose: 50 mg Nifedipine (Procardia Xl -) 60 mg PO DAILY [facility] Last Admin: 10/31/18 10:33 Dose: 60 mg Nystatin/Triamcinolone Acetonide (Mycolog Ii Ointment -) 1 applic TP BID [facility] Last Admin: 10/31/18 10:32 Dose: 1 applic Ofloxacin (Ocuflox 0.3% Eye Drops -) 1 drop OU Q4HWA [facility] Last Admin: 10/31/18 13:50 Dose: 1 drop Oxcarbazepine (Trileptal) 300 mg PO BID [facility] Last Admin: 10/31/18 10:32 Dose: 300 units Timolol Maleate (Timoptic 0.5%) 1 drop OU DAILY [facility] Last Admin: 10/31/18 10:32 Dose: 1 drop 58 year old woman with hx of Right sided hemorragic stroke, Hypertension, HLD, seizure disorder presented with AMS with suspected encephalitis now with recurrent RAMYA. #RAMYA from volume depletion vs AIN vs. ATN Renal function improving with IVF. Urine Na is low consistent with preserved tubular function would continue IVF x 24 more hours No peripheral eosinophilia noted. Trend BUN/Cr and electrolytes Varun Avery DO 58 yof with PMhx of R haemorrhagic stroke, complex partial seizure disorder due to the same, HTN, HLD admitted with witnessed seizure, course complicated by fevers, AMS.
[2018-10-31] MEDS ORDERED: PT OWN MED DRAWER 7, Y5N ONE (21:02)
[2018-10-31 23:07] LABS: COMPLEMENT TOTAL(CH50) 45 U/mL (>41)
[2018-11-01] MEDS ORDERED: DEXTROSE 5%-WATER - 50 ML IVPB ONE ×3 (00:50→17:23)
[2018-11-01] MEDS ORDERED: PIPERACILLIN/TAZOBACTAM 2.25 GM VIAL IVPB ONE ×4 (00:50→17:23)
[2018-11-01] MEDS: PIPERACILLIN/TAZOB 2.25 GM 2.25 GM in DEXTROSE 5%-WATER - 50 ML IVPB SCH ×3 (01:07→17:26)
[2018-11-01] MEDS: OFLOXACIN 0.3% OPHTHALMIC SOLUTION 5 ML BOTTLE OU SCH ×5 (07:22→21:17)
[2018-11-01] MEDS: SODIUM CHLORIDE 0.45% 1,000 ML IV SCH ×2 (08:07→11:00)
[2018-11-01] MEDS: ALBUTEROL SO4 0.083% IH SOL 2.5 MG/3 ML VIAL.NEB. NEB SCH ×4 (08:16→20:05)
--- NOTE | 2018-11-01 08:31 | PN ---
Progress Note (short form) - Note Progress Note: Neurology CHIEF COMPLAINT: seizure HISTORY OF PRESENT ILLNESS: 58 year old female with a significant past medical history of R sided hemorrhagic stroke with complex partial seizures as a result, HTN, HLD, who presented to the ED with complaints of reportedly seizure like episode that occured 1.5 hours prior to ED arrival. As per patient's family at bedside patient stated that she felt her seizure coming on. According to notes, family reported her legs were shaking. EMS reports giving 5 versed IV in the field. Seizures resolved at that time. Family reported no trauma, fevers, chills. Per med recon, she is on trileptal 150 mg BID. Was contacted by ER overnight and patient reportedly with seizure event in ED, reportedly given Ativan. CT head completed and without acute changes, labs reviewed. EEG reviewed and demonstrated evidence of encephalopathy but no abnormal epileptiform activity. Appreciate coverage over the past week. Patient with fluctuating mental status improved now awake, alert, interactive and recognizes me. Spinal tap completed and with 5 wbc, 7rbc, increased protein to 90, glucose normal. Has been on broad spectrum Abx with improvement in mental status. Trileptal stabe at 300mg. MRI brain completed and without acute changes. Able to tell me she's in the hospital, knows it's , can tell me it's october, difficulty with year. Seen at bedside with nurse. Active Medications Acetaminophen (Tylenol -) 650 mg PO Q6H PRN PRN Reason: FEVER Last Admin: 10/29/18 22:07 Dose: 650 mg Albuterol Sulfate (Ventolin 0.083% Nebulizer Soln -) 1 amp NEB RQID [facility] Last Admin: 10/31/18 20:18 Dose: 1 amp Albuterol Sulfate (Ventolin 0.083% Nebulizer Soln -) 1 amp NEB Q4H PRN PRN Reason: SHORT OF BREATH/WHEEZING Piperacillin Sod/Tazobactam (Sod 2.25 gm/ Dextrose) 50 mls @ 100 mls/hr IVPB Q8H-IV JOSEF; Protocol Last Admin: 11/01/18 01:07 Dose: 100 mls/hr Sodium Chloride (1/2 Normal Saline) 1,000 mls @ 75 mls/hr IV ASDIR [facility] Last Admin: 11/01/18 08:07 Dose: 75 mls/hr Metoprolol Tartrate (Lopressor -) 50 mg PO BID [facility] Last Admin: 10/31/18 21:08 Dose: 50 mg Nifedipine (Procardia Xl -) 60 mg PO DAILY [facility] Last Admin: 10/31/18 10:33 Dose: 60 mg Nystatin/Triamcinolone Acetonide (Mycolog Ii Ointment -) 1 applic TP BID [facility] Last Admin: 10/31/18 21:08 Dose: 1 applic Ofloxacin (Ocuflox 0.3% Eye Drops -) 1 drop OU Q4HWA [facility] Last Admin: 11/01/18 07:22 Dose: 1 drop Oxcarbazepine (Trileptal) 300 mg PO BID [facility] Last Admin: 10/31/18 21:09 Dose: 300 mg Timolol Maleate (Timoptic 0.5%) 1 drop OU DAILY [facility] Last Admin: 10/31/18 10:32 Dose: 1 drop PHYSICAL EXAMINATION Vital Signs Period Temp Pulse Resp BP Sys/Lewis Pulse Ox Last 24 Hr 97.6 F-98.2 F 80-91 16-18 101-140/58-78 97-100 GENERAL:awake, alert, interactive, follows basic commands HEAD: NC/AT EYES: EOMI, MICA , sclera anicteric ENT: moist mucous membrane NECK: Supple, no JVD, obese LUNGS: CTA B/L, no crackles no wheezing no accessory muscle use. HEART: RRR, NSR, normal s1, s2, murmur no M/R/G ABDOMEN: Obese ,Soft, ND, NT, +BS 4 Q, no CVA Tenderness LOWER EXTREMITIES: no edema, +2DP pulse, NEUROLOGICAL: Awake, alert, but not fully oriented, moving all extremities, not aggresive, sensory intact, gait deferred CBCD WBC 5.6 K/mm3 (4.0-10.0) 10/31/18 07:30 RBC 4.08 M/mm3 (3.60-5.2) 10/31/18 07:30 Hgb 10.2 GM/dL (10.7-15.3) L 10/31/18 07:30 Hct 30.4 % (32.4-45.2) L 10/31/18 07:30 MCV 74.4 fl (80-96) L 10/31/18 07:30 MCHC 33.5 g/dl (32.0-36.0) 10/31/18 07:30 RDW 18.6 % (11.6-15.6) H 10/31/18 07:30 Plt Count 471 K/MM3 (134-434) H 10/31/18 07:30 MPV 7.9 fl (7.5-11.1) 10/31/18 07:30 CMP Sodium 144 mmol/L (136-145) 10/31/18 07:30 Potassium 4.5 mmol/L (3.5-5.1) 10/31/18 07:30 Chloride 113 mmol/L (98-107) H 10/31/18 07:30 Carbon Dioxide 24 mmol/L (21-32) 10/31/18 07:30 Anion Gap 7 MMOL/L (8-16) L 10/31/18 07:30 BUN 34 mg/dL (7-18) H 10/31/18 07:30 Creatinine 1.9 mg/dL (0.55-1.3) H 10/31/18 07:30 Creat Clearance w eGFR 27.25 (>60) 10/31/18 07:30 Random Glucose 76 mg/dL (74-106) 10/31/18 07:30 Calcium 7.6 mg/dL (8.5-10.1) L 10/31/18 07:30 Total Bilirubin 0.5 mg/dL (0.2-1) 10/31/18 07:30 AST 17 U/L (15-37) 10/31/18 07:30 ALT 31 U/L (13-61) 10/31/18 07:30 Alkaline Phosphatase 63 U/L (45-117) 10/31/18 07:30 Total Protein 6.5 g/dl (6.4-8.2) 10/31/18 07:30 Albumin 2.5 g/dl (3.4-5.0) L 10/31/18 07:30 CARDIAC ENZYMES Creatine Kinase 262 U/L (26-192) H 10/30/18 13:15 Troponin I 0.03 ng/ml (0.00-0.05) 10/13/18 06:17 ASSESSMENT/PLAN: 58 year old female with a significant past medical history of R sided hemorrhagic stroke with complex partial seizures as a result, HTN, HLD, who presented to the ED with complaints of reportedly seizure like episode that occured 1.5 hours prior to ED arrival. As per patient's family at bedside patient stated that she felt her seizure coming on. According to notes, family reported her legs were shaking. EMS reports giving 5 versed IV in the field. Seizures resolved at that time. Family reported no trauma, fevers, chills. Per med recon, she is on trileptal 150 mg BID. Was contacted by ER overnight and patient reportedly with seizure event in ED, reportedly given Ativan. CT head completed and without acute changes, labs reviewed. Appreciate coverage over the weekend. Patient much improved and near baseline mental status. Spinal tap completed and with 5 wbc, 7rbc, increased protein to 90, glucose normal. Has been on broad spectrum Abx. Trileptal also increased to 300mg. Has been on broad spectrum Abx with improvement in mental status. Trileptal stabe at 300mg. MRI brain completed and without acute changes. Able to tell me she's in the hospital, knows it's [facility], can tell me it's october, difficulty with year. Seen at bedside with nurse. Remains calm and cooperative this am, continue medical optimization. No new CVA or seizures. .
[2018-11-01 10:23] LABS: ALBUMIN 2.6 g/dl (3.4-5.0); ALK PHOS 64 U/L (45-117); ANION GAP 6 MMOL/L (8-16); BILIRUBIN,TOTAL 0.4 mg/dL (0.2-1); BLOOD UREA NITROGEN 24 mg/dL (7-18); CALCIUM 8.8 mg/dL (8.5-10.1); CHLORIDE 112 mmol/L (98-107); CO2 26 mmol/L (21-32); CREATININE 1.6 mg/dL (0.55-1.3); GLUCOSE,RANDOM 83 mg/dL (74-106); POTASSIUM 4.7 mmol/L (3.5-5.1); SGOT/AST 17 U/L (15-37); SGPT/ALT 31 U/L (13-61); SODIUM 145 mmol/L (136-145); TOT PROT 6.6 g/dl (6.4-8.2)
[2018-11-01] MEDS: METOPROLOL TARTRATE 50 MG TABLET (FP) PO SCH ×2 (10:56→21:16)
[2018-11-01] MEDS: NIFEdipine E.R 60 MG TABLET (UD) PO SCH (10:56)
[2018-11-01] MEDS: OXcarbazepine 300 MG/5 ML 250 ML BULK BOTTLE PO SCH ×2 (10:57→21:17)
[2018-11-01] MEDS: TIMOLOL 0.5% OPHTHALMIC SOL 5 ML BOTTLE OU SCH (10:58)
[2018-11-01] MEDS: NYSTATIN/TRIAMCINOLONE TOPICAL OINTMENT 15 GM TUBE TP SCH ×2 (10:58→21:16)
--- NOTE | 2018-11-01 11:38 | PN ---
Teaching Attending Note Name of Resident: Louise Sims ATTENDING PHYSICIAN STATEMENT I saw and evaluated the patient. I reviewed the resident's note and discussed the case with the resident. I agree with the resident's findings and plan as documented with exceptions below. SUBJECTIVE: Patient seen and examined, More awake, OX2, thought was September, no pain or complaints. OBJECTIVE: Vital Signs Period Temp Pulse Resp BP Sys/Lewis Pulse Ox Last 24 Hr 97.6 F-98.2 F 80-91 18-18 101-140/58-98 100 Intake & Output 10/29/18 10/30/18 10/31/18 11/01/18 23:59 23:59 23:59 23:59 Intake Total 1855 2505 1750 650 Output Total 300 2100 600 Balance 7175 279 5079 650 Weight 228 lb 12.8 oz General: sitting in bed, pleasant, co-operative, better interaction and less tangential conversations today Chest: no wheezing or rhonchi today,distant breath sounds Abdomen:Soft, obese, NT throughout, no suprapubic or CVA tenderness Extremities: 1+ pedal edema Skin: excoriation with peeling generalized, more on extremities and back area, non pruritic non tender Home Medications Medication Instructions Recorded Aspirin [ASA -] 81 mg PO DAILY 12/29/15 Metoprolol Tartrate [Lopressor -] 50 mg PO BID #60 tab 10/26/17 Nifedipine [Procardia Xl] 60 mg PO DAILY #30 tab 10/26/17 Oxcarbazepine 150 mg PO BID #60 tablet 10/26/17 Timolol 0.5% [Timoptic 0.5%] 1 drop OU DAILY #1 bottle 10/26/17 Hydrochlorothiazide [Hctz -] 25 mg PO DAILY 08/09/18 Active Medications Acetaminophen (Tylenol -) 650 mg PO Q6H PRN PRN Reason: FEVER Last Admin: 10/29/18 22:07 Dose: 650 mg Albuterol Sulfate (Ventolin 0.083% Nebulizer Soln -) 1 amp NEB RQID JOSEF Last Admin: 11/01/18 08:16 Dose: 1 amp Albuterol Sulfate (Ventolin 0.083% Nebulizer Soln -) 1 amp NEB Q4H PRN PRN Reason: SHORT OF BREATH/WHEEZING Piperacillin Sod/Tazobactam (Sod 2.25 gm/ Dextrose) 50 mls @ 100 mls/hr IVPB Q8H-IV JOSEF; Protocol Last Admin: 11/01/18 10:57 Dose: 100 mls/hr Sodium Chloride (1/2 Normal Saline) 1,000 mls @ 75 mls/hr IV ASDIR JOSEF Last Admin: 11/01/18 11:00 Dose: 75 mls/hr Metoprolol Tartrate (Lopressor -) 50 mg PO BID [facility] Last Admin: 11/01/18 10:56 Dose: 50 mg Nifedipine (Procardia Xl -) 60 mg PO DAILY [facility] Last Admin: 11/01/18 10:56 Dose: 60 mg Nystatin/Triamcinolone Acetonide (Mycolog Ii Ointment -) 1 applic TP BID [facility] Last Admin: 11/01/18 10:58 Dose: 1 applic Ofloxacin (Ocuflox 0.3% Eye Drops -) 1 drop OU Q4HWA [facility] Last Admin: 11/01/18 07:22 Dose: 1 drop Oxcarbazepine (Trileptal) 300 mg PO BID [facility] Last Admin: 11/01/18 10:57 Dose: 300 mg Timolol Maleate (Timoptic 0.5%) 1 drop OU DAILY [facility] Last Admin: 11/01/18 10:58 Dose: 1 drop Laboratory Results - last 24 hr 10/30/18 11/01/18 13:15 09:05 Sodium 145 Potassium 4.7 Chloride 112 H Carbon Dioxide 26 Anion Gap 6 L BUN 24 H Creatinine 1.6 H Creat Clearance w eGFR 33.22 Random Glucose 83 Calcium 8.8 Total Bilirubin 0.4 AST 17 ALT 31 Alkaline Phosphatase 64 Total Protein 6.6 Albumin 2.6 L YARED Screen Negative Tot Complement (CH50) 45 Microbiology 10/28/18 14:03 Blood - Peripheral Venous Blood Culture - Preliminary NO GROWTH OBTAINED AFTER 72 HOURS, INCUBATION TO CONTINUE FOR 2 DAYS. 10/29/18 12:00 Urine - Urine - Catheterized Urine Culture - Final Vr Ec Faecium 10/28/18 14:50 Blood - Peripheral Venous Blood Culture - Preliminary NO GROWTH OBTAINED AFTER 72 HOURS, INCUBATION TO CONTINUE FOR 2 DAYS. 10/30/18 13:15 Blood - Peripheral Venous Blood Parasites Smear - Final 10/23/18 19:35 Blood - Peripheral Venous Blood Culture - Final NO GROWTH AFTER 5 DAYS INCUBATION 10/23/18 19:25 Blood - Peripheral Venous Blood Culture - Final NO GROWTH AFTER 5 DAYS INCUBATION 10/18/18 14:50 Blood - Peripheral Venous Blood Culture - Final NO GROWTH AFTER 5 DAYS INCUBATION 10/18/18 14:50 Blood - Peripheral Venous Blood Culture - Final NO GROWTH AFTER 5 DAYS INCUBATION 10/17/18 18:32 Cerebral Spinal Fluid - Lumbar Puncture Gram Stain - Final 10/17/18 18:32 Cerebral Spinal Fluid - Lumbar Puncture CSF Culture - Final 10/18/18 22:30 Urine - Urine Clean Catch Urine Culture - Final NO GROWTH OBTAINED 10/13/18 20:15 Blood - Peripheral Venous Blood Culture - Final NO GROWTH AFTER 5 DAYS INCUBATION 10/13/18 18:30 Blood - Peripheral Venous Blood Culture - Final NO GROWTH AFTER 5 DAYS INCUBATION 10/18/18 15:33 Cerebral Spinal Fluid - Lumbar Puncture Streptococcus pneumoniae Antigen (M - Final 10/15/18 16:45 Urine For Antigen Detection Legionella Antigen - Final 10/15/18 16:45 Urine For Antigen Detection Streptococcus pneumoniae Antigen (M - Final 10/13/18 16:00 Urine - Urine - Catheterized Urine Culture - Final NO GROWTH OBTAINED ASSESSMENT AND PLAN: 58 yof with PMhx of R haemorrhagic stroke, complex partial seizure disorder due to the same, HTN, HLD admitted with witnessed seizure, course complicated by fevers, AMS. -Sepsis,Suspected Left basilar Aspiration PNA from seizure/medications, s/p emperic Ceftriaxone/Acyclovir for meningitis/encephalatis -RAMYA, from hypovolumi/ATN from sepsis/poor oral intake, vs medication induced vs rhabdomyolysis, no evidence of obstruction -Witnessed seizure -Encephalopathy, infection vs seizure vs post ictal vs from meds -Acute on chronic diastolic heart failure exacerbation -Left conjunctivitis -Hypokalemia -Hypernatremia, resolved -H/o right sided haemorrhagic stroke -HTN -HLD Plan: Recurrent fevers with AMS after episodes of vomitting on 10/28 associated with RAMYA, resumed on IV abx, IVF. Clinically improved, afebrile, mental status better. Etiology of events last 72 hours unclear, episode followed vomiting, ? aspiration with recurrent LLE pneumonia vs pneumonitis. ID input noted, zosyn day 4, vanco renal dosing per ID. Urine cx with VRE, follow up with ID. Follow up VDRL/YARED/ANCA/Complement/Cryoglobulin. Blood parasite screen neg. Blood cx neg so far. Prior work up including MRI brain/LP/CT chest/A/P have not shown a clear source of infection. Has been emperically treated with ceftriaxone/acyclovir for possible meningitis, then zosyn for suspected aspiration. Unclear if ?vasculitis vs other inflammatory process contributing to recurrent symptoms. Neurology input noted. Repeat CT brain with no new concerns. Follow up repeat EEG/B12/folate. No wheezing today,nebs prn, cautious hydration. [place], strict I/Os. Cautious hydration. Off enalapril/HCTZ given recurrent RAMYA. Renal input appreciated. Carbamazepine increased this admission, monitor. EEG abnormal but neg for epileptiform activity.Follow up repeat study. Ongoing psychiatric concerns. psych input noted. 1:1. Discussed with sister, no prior psychiatric history or concerns. Skin peeling with excoriation, ?Drug reaction. 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 Reconsult dermatology. Soft diet with aspiration precautions. Lasix prn. 2D echo noted. Metoprolol/nifedipine as tolerated. DVTPPX heparin DVTPPX Dispo planning on hold given new clinical concerns. Plan discussed with nursing.
--- NOTE | 2018-11-01 11:45 | PN ---
Progress Note (short form) - Note Progress Note: Renal follow up for RAMYA Pt seen and examined at the bedside awake and alert offers no acute complains has skin peeling all over body no pain, no itching making urine via olivas no CP, SOB, Fever or chlls Vital Signs Temperature 97.9 F 11/01/18 08:44 Pulse Rate 84 11/01/18 08:44 Respiratory Rate 18 11/01/18 08:44 Blood Pressure 132/98 11/01/18 08:44 O2 Sat by Pulse Oximetry (%) 100 10/31/18 21:00 Intake & Output 10/29/18 10/30/18 10/31/18 11/01/18 23:59 23:59 23:59 23:59 Intake Total 1855 2505 1750 650 Output Total 300 2100 600 Balance 6766 721 7109 650 Weight 103.782 kg NAD awake and alert RRR CTA no LE edema diffuse skin peeling CBC, BMP 10/31/18 07:30 11/01/18 09:05 Current Medications Acetaminophen (Tylenol -) 650 mg PO Q6H PRN PRN Reason: FEVER Last Admin: 10/29/18 22:07 Dose: 650 mg Albuterol Sulfate (Ventolin 0.083% Nebulizer Soln -) 1 amp NEB RQID JOSEF Last Admin: 11/01/18 08:16 Dose: 1 amp Albuterol Sulfate (Ventolin 0.083% Nebulizer Soln -) 1 amp NEB Q4H PRN PRN Reason: SHORT OF BREATH/WHEEZING Piperacillin Sod/Tazobactam (Sod 2.25 gm/ Dextrose) 50 mls @ 100 mls/hr IVPB Q8H-IV JOSEF; Protocol Last Admin: 11/01/18 10:57 Dose: 100 mls/hr Sodium Chloride (1/2 Normal Saline) 1,000 mls @ 75 mls/hr IV ASDIR JOSEF Last Admin: 11/01/18 11:00 Dose: 75 mls/hr Metoprolol Tartrate (Lopressor -) 50 mg PO BID [facility] Last Admin: 11/01/18 10:56 Dose: 50 mg Nifedipine (Procardia Xl -) 60 mg PO DAILY [facility] Last Admin: 11/01/18 10:56 Dose: 60 mg Nystatin/Triamcinolone Acetonide (Mycolog Ii Ointment -) 1 applic TP BID [facility] Last Admin: 11/01/18 10:58 Dose: 1 applic Ofloxacin (Ocuflox 0.3% Eye Drops -) 1 drop OU Q4HWA [facility] Last Admin: 11/01/18 07:22 Dose: 1 drop Oxcarbazepine (Trileptal) 300 mg PO BID [facility] Last Admin: 11/01/18 10:57 Dose: 300 mg Timolol Maleate (Timoptic 0.5%) 1 drop OU DAILY [facility] Last Admin: 11/01/18 10:58 Dose: 1 drop 58 year old woman with hx of Right sided hemorragic stroke, Hypertension, HLD, seizure disorder presented with AMS with suspected encephalitis now with recurrent RAMYA. #RAMYA from volume depletion Urine studies consistent with preserved tubular function Renal function improving but not yet to baseline continue gentle IV hydration for now, encourged oral hydration can discontinue olivas and perform trial of void Varun Avery DO 58 yof with PMhx of R haemorrhagic stroke, complex partial seizure disorder due to the same, HTN, HLD admitted with witnessed seizure, course complicated by fevers, AMS.
--- NOTE | 2018-11-01 15:10 | PN ---
Physical Exam: SUBJECTIVE: Patient seen and examined. She is complaining of peeling of the skin and falling off. She states that had similar reaction in the past due to Dilantin. OBJECTIVE: Vital Signs Period Temp Pulse Resp BP Sys/Lewis Pulse Ox Last 24 Hr 97.6 F-98.2 F 84-91 18-18 126-140/72-98 100 GENERAL: The patient is awake, alert, in bed. HEAD: Normal with no signs of trauma. EYES: Extraocular movements intact. ENT: Oropharynx clear without exudates, moist mucous membranes. NECK: Trachea midline, full range of motion, supple. LUNGS: Clear to auscultation bilaterally, no wheezes, no crackles, no accessory muscle use. HEART: Distant heart sounds, regular rate and rhythm, S1, S2 without murmur, rub or gallop. ABDOMEN: Obese, soft, nontender, nondistended, normoactive bowel sounds, no guarding, no masses. EXTREMITIES: 2+ pulses, warm, well-perfused, 1+ edema. NEUROLOGICAL: Normal speech, gait not observed. PSYCH: Normal mood, normal affect. SKIN: Warm, dry, no rash, dry skin on elbows, peeling of the skin in multiple location, excoriations in the back, left arm, buttocks. Laboratory Results - last 24 hr 10/30/18 11/01/18 13:15 09:05 Sodium 145 Potassium 4.7 Chloride 112 H Carbon Dioxide 26 Anion Gap 6 L BUN 24 H Creatinine 1.6 H Creat Clearance w eGFR 33.22 Random Glucose 83 Calcium 8.8 Total Bilirubin 0.4 AST 17 ALT 31 Alkaline Phosphatase 64 Total Protein 6.6 Albumin 2.6 L YARED Screen Negative Tot Complement (CH50) 45 Active Medications Generic Name Dose Route Start Last Admin Trade Name Freq PRN Reason Stop Dose Admin Acetaminophen 650 mg 10/24/18 20:25 10/29/18 22:07 Tylenol - PO 650 mg Q6H PRN Administration FEVER Albuterol Sulfate 1 amp 10/30/18 12:00 11/01/18 11:50 Ventolin 0.083% Nebulizer Soln - NEB 1 amp RQID JOSEF Administration Albuterol Sulfate 1 amp 10/30/18 10:36 Ventolin 0.083% Nebulizer Soln - NEB Q4H PRN SHORT OF BREATH/WHEEZING Piperacillin Sod/Tazobactam 50 mls @ 100 mls/hr 10/29/18 11:00 11/01/18 10:57 Sod 2.25 gm/ Dextrose IVPB 100 mls/hr Q8H-IV JOSEF Administration Protocol Sodium Chloride 1,000 mls @ 75 mls/hr 10/30/18 10:45 11/01/18 11:00 1/2 Normal Saline IV 75 mls/hr ASDIR JOSEF Administration Metoprolol Tartrate 50 mg 10/24/18 22:00 11/01/18 10:56 Lopressor - PO 50 mg BID JOSEF Administration Nifedipine 60 mg 10/25/18 10:00 11/01/18 10:56 Procardia Xl - PO 60 mg DAILY JOSEF Administration Nystatin/Triamcinolone Acetonide 1 applic 10/26/18 23:15 11/01/18 10:58 Mycolog Ii Ointment - TP 1 applic BID JOSEF Administration Ofloxacin 1 drop 10/24/18 22:00 11/01/18 13:51 Ocuflox 0.3% Eye Drops - OU 1 drop Q4HWA JOSEF Administration Oxcarbazepine 300 mg 10/24/18 22:00 11/01/18 10:57 Trileptal PO 300 mg BID JOSEF Administration Timolol Maleate 1 drop 10/25/18 10:00 11/01/18 10:58 Timoptic 0.5% OU 1 drop DAILY JOSEF Administration ASSESSMENT/PLAN: 58 year old female with a significant past medical history of R sided hemorrhagic stroke with complex partial seizures as a result, HTN, HLD, admitted s/p seizure episode. Acute metabolic encephalopathy -unknown cause for now, likely infectious, possible HCAP after seizure episode, aspiration pneumonia, r/o meningitis, LP nl, done late, PCR HSV neg, f/u rheum factors, YARED neg, CH50 nl, r/o vasculitis -MRI brain completed and without acute changes -new blood cultures collected Group D Strep -Trileptal at 300mg, -no fever in 24 hrs -Empiryc Zosyn and Acyclovir stopped, restarted Zosyn again -Strep pneumo. neg -will f/u Psych recommendations, no history of mental disease as per family but pt continues to be confused Acute respiratory failure with hypoxia -resolved, Oxygen 97% on RA -continue to monitor, fluids stopped Skin peeling with excorations: -h/o of sjs -dermatology consulted -likely due to Zosyn -mycostatin RAMYA: -resolved -avoid nephrotoxins -renal sonogram with no acute pathology Pulmonary edema -improved clinically Seizure -continue trileptal HTN -controlled -continue lopressor 50 mg BID, procardia 60 mg qd and Enalapril 5 mg History of CVA -stable -MRI reviewed, consulted Neurology Obesity (BMI 30-39.9) -counseling provided DVT PPX: heparin F/E/N: no/no changes/soft diet Dispo> telemetry monitoring Problem List - Problems (1) Acute metabolic encephalopathy Code(s): G93.41 - METABOLIC ENCEPHALOPATHY (2) Acute respiratory failure with hypoxia Code(s): J96.01 - ACUTE RESPIRATORY FAILURE WITH HYPOXIA (3) Pulmonary edema Code(s): J81.1 - CHRONIC PULMONARY EDEMA Qualifiers: Chronicity: acute Qualified Code(s): J81.0 - Acute pulmonary edema (4) Seizure Code(s): R56.9 - UNSPECIFIED CONVULSIONS (5) Cerebrovascular accident (CVA) Code(s): I63.9 - CEREBRAL INFARCTION, UNSPECIFIED Qualifiers: CVA mechanism: other Qualified Code(s): I63.89 - Other cerebral infarction (6) DVT prophylaxis Code(s): NFO0227 - (7) Edema Code(s): R60.9 - EDEMA, UNSPECIFIED Qualifiers: Edema type: unspecified Qualified Code(s): R60.9 - Edema, unspecified (8) HTN (hypertension), benign Code(s): I10 - ESSENTIAL (PRIMARY) HYPERTENSION (9) History of CVA (cerebrovascular accident) Code(s): Z86.73 - PRSNL HX OF TIA (TIA), AND CEREB INFRC W/O RESID DEFICITS (10) Obesity (BMI 30-39.9) Code(s): E66.9 - OBESITY, UNSPECIFIED (11) Acute kidney injury Code(s): N17.9 - ACUTE KIDNEY FAILURE, UNSPECIFIED (12) CKD (chronic kidney disease) stage 3, GFR 30-59 ml/min Code(s): N18.3 - CHRONIC KIDNEY DISEASE, STAGE 3 (MODERATE) Visit type - Emergency Visit Emergency Visit: Yes ED Registration Date: 10/13/18 Care time: The patient presented to the Emergency Department on the above date and was hospitalized for further evaluation of their emergent condition. - New Patient This patient is new to me today: No - Critical Care Critical Care patient: No - Discharge Referral Referred to [facility] Med P.C.: No
--- NOTE | 2018-11-01 17:57 | PN ---
Progress Note, Physician Chief Complaint: PRESENTLY AWAKE, ALERT less CONFUSED TEMPS DOWN ON EMPIRIC ZOSYN BC NO GROWTH - Current Medication List Current Medications: Active Medications Acetaminophen (Tylenol -) 650 mg PO Q6H PRN PRN Reason: FEVER Last Admin: 10/29/18 22:07 Dose: 650 mg Albuterol Sulfate (Ventolin 0.083% Nebulizer Soln -) 1 amp NEB RQID JOSEF Last Admin: 11/01/18 15:57 Dose: 1 amp Albuterol Sulfate (Ventolin 0.083% Nebulizer Soln -) 1 amp NEB Q4H PRN PRN Reason: SHORT OF BREATH/WHEEZING Piperacillin Sod/Tazobactam (Sod 2.25 gm/ Dextrose) 50 mls @ 100 mls/hr IVPB Q8H-IV JOSEF; Protocol Last Admin: 11/01/18 17:26 Dose: 100 mls/hr Sodium Chloride (1/2 Normal Saline) 1,000 mls @ 75 mls/hr IV ASDIR JOSEF Last Admin: 11/01/18 11:00 Dose: 75 mls/hr Metoprolol Tartrate (Lopressor -) 50 mg PO BID [facility] Last Admin: 11/01/18 10:56 Dose: 50 mg Nifedipine (Procardia Xl -) 60 mg PO DAILY [facility] Last Admin: 11/01/18 10:56 Dose: 60 mg Nystatin/Triamcinolone Acetonide (Mycolog Ii Ointment -) 1 applic TP BID [facility] Last Admin: 11/01/18 10:58 Dose: 1 applic Ofloxacin (Ocuflox 0.3% Eye Drops -) 1 drop OU Q4HWA [facility] Last Admin: 11/01/18 17:27 Dose: 1 drop Oxcarbazepine (Trileptal) 300 mg PO BID [facility] Last Admin: 11/01/18 10:57 Dose: 300 mg Timolol Maleate (Timoptic 0.5%) 1 drop OU DAILY [facility] Last Admin: 11/01/18 10:58 Dose: 1 drop - Objective Vital Signs: Vital Signs Temperature 99.2 F 11/01/18 16:23 Pulse Rate 93 H 11/01/18 16:23 Respiratory Rate 16 11/01/18 16:23 Blood Pressure 129/74 11/01/18 16:23 O2 Sat by Pulse Oximetry (%) 100 11/01/18 10:00 Constitutional: Yes: No Distress Eyes: Yes: Conjunctiva Clear Cardiovascular: Yes: Regular Rate and Rhythm, S1, S2 Respiratory: Yes: CTA Bilaterally Integumentary: Yes: Other (+dry,scaly skin) Labs: CBC, BMP 10/31/18 07:30 11/01/18 09:05 INR, PTT INR 0.99 (0.83-1.09) 10/31/18 07:30 Assessment/Plan RECURRENT FEVER afebrile on antibiotics ALTERED MENTAL STATUS ? ETIOLOGY AZOTEMIA-IMPROVING CONTINUE EMPIRIC ZOSYN DERMATOLOGY EVALUATION
[2018-11-01] MEDS ORDERED: PT OWN MED DRAWER 7, Y5N ONE (21:07)
[2018-11-02] MEDS ORDERED: PIPERACILLIN/TAZOBACTAM 2.25 GM VIAL IVPB ONE ×2 (01:04→08:55)
[2018-11-02] MEDS ORDERED: DEXTROSE 5%-WATER - 50 ML IVPB ONE ×2 (01:04→08:55)
[2018-11-02] MEDS: PIPERACILLIN/TAZOB 2.25 GM 2.25 GM in DEXTROSE 5%-WATER - 50 ML IVPB SCH ×2 (01:11→15:56)
[2018-11-02] MEDS: SODIUM CHLORIDE 0.45% 1,000 ML IV SCH ×2 (01:12→18:35)
[2018-11-02] MEDS: OFLOXACIN 0.3% OPHTHALMIC SOLUTION 5 ML BOTTLE OU SCH ×5 (05:15→21:12)
[2018-11-02 06:49] LABS: BASO % 1.4 % (0-2.0); HEMATOCRIT 30.6 % (32.4-45.2); HEMOGLOBIN 10.2 GM/dL (10.7-15.3); LYMPH % 40.7 % (8-40); MCH 24.9 pg (25.7-33.7); MCHC 33.5 g/dl (32.0-36.0); MEAN CELL VOLUME 74.3 fl (80-96); MEAN PLT VOLUME 7.8 fl (7.5-11.1); MONO % 11.9 % (3.8-10.2); PLATELET COUNT 492 K/MM3 (134-434); RBC 4.11 M/mm3 (3.60-5.2); RDW 18.6 % (11.6-15.6); WHITE BLOOD COUNT 6.2 K/mm3 (4.0-10.0)
[2018-11-02 07:11] LABS: ALBUMIN 2.6 g/dl (3.4-5.0); ALK PHOS 66 U/L (45-117); ANION GAP 6 MMOL/L (8-16); BILIRUBIN,TOTAL 0.5 mg/dL (0.2-1); BLOOD UREA NITROGEN 18 mg/dL (7-18); CALCIUM 8.7 mg/dL (8.5-10.1); CHLORIDE 109 mmol/L (98-107); CO2 24 mmol/L (21-32); CREATININE 1.3 mg/dL (0.55-1.3); GLUCOSE,RANDOM 68 mg/dL (74-106); POTASSIUM 4.2 mmol/L (3.5-5.1); SGOT/AST 17 U/L (15-37); SGPT/ALT 28 U/L (13-61); SODIUM 140 mmol/L (136-145); TOT PROT 6.7 g/dl (6.4-8.2)
[2018-11-02] MEDS: ALBUTEROL SO4 0.083% IH SOL 2.5 MG/3 ML VIAL.NEB. NEB SCH ×4 (08:19→21:00)
--- NOTE | 2018-11-02 08:39 | PN ---
Teaching Attending Note Name of Resident: Louise Sims ATTENDING PHYSICIAN STATEMENT I saw and evaluated the patient. I reviewed the resident's note and discussed the case with the resident. I agree with the resident's findings and plan as documented. SUBJECTIVE: patient c/o skin rash, less confused able to enid back her previous hospitalization and allrgies with anti epileptic meds, remained afebrile. OBJECTIVE: Vital Signs Temperature 98.0 F 11/02/18 05:56 Pulse Rate 78 11/02/18 05:56 Respiratory Rate 18 11/02/18 05:56 Blood Pressure 153/90 11/02/18 05:56 O2 Sat by Pulse Oximetry (%) 100 11/01/18 21:00 Middle aged F not in distress, HEENT: mm moist, oral MM is intact NECK: No JVd No Bruit CHEST: CTA B/L CVS: S1S2 R no m/g/r ABD: obese, non tender Bs + EXT: no indu afeet, no vcalgf tenderness [employer] DEVELOPER: Alert but confused (as per strategy intern improving) at base line Left sided hemiparesis. EXT: Rt UE swelling DERM: diffuse scalded lesion all over rhe body, mainly trunk LABS: CBC, BMP CBC, BMP 11/02/18 06:00 11/02/18 06:00 ASSESSMENT AND PLAN:58 yrs old with PMhx of R parietal hemorrhagic stroke, secondary complex partial seizure disorder due to the same, HTN, HLD admitted with witnessed seizure, course complicated by fevers, AMS. atient has previous hospitalization with similarpresentation never had behavioral issue, lives with family no H/O Psyh disorders, in the past skin eruption with Keppra and Dilantin, developed skin rash after introducing zosybn for FUO ? aspiration pneumonia, on 10/29/2018 Problem List - Problems (1) Altered mental state Assessment/Plan: of unknown etiology h/o Partial complex seizure possibality of post ictal , patient Ms is waxing and waning evaluated by psych, neurology CT haed and MRI Brain no acute changes, Ist EEG abnormal but no epileptic focci. will observe F/ U rpt EEG result. Code(s): R41.82 - ALTERED MENTAL STATUS, UNSPECIFIED (2) Seizure Assessment/Plan: Cont Trileptal 300 mg daily Code(s): R56.9 - UNSPECIFIED CONVULSIONS (3) Skin rash Assessment/Plan: Multiple drug allergies in the past reports simillar rash with dIlantin and Keppra, Derm consulted recommonded topicalsteroids will call Derm consult. F/U pending w/u. Code(s): R21 - RASH AND OTHER NONSPECIFIC SKIN ERUPTION (4) Fever Assessment/Plan: intially treated emparically for meningitis with IV Ceftriaxone and Acyclovir, LP negative had episode of fever with elevated TWBC on ampiric Zsyn now with generalised skin lesions, Id on the case U grew VRE sensitive to daptomycin patient s afebrile TWBC trended normal. will F/ u with Derm to switch to Daptomycin. Code(s): R50.9 - FEVER, UNSPECIFIED (5) Acute kidney injury Assessment/Plan: Improved aboid nephrotoxic meds Code(s): N17.9 - ACUTE KIDNEY FAILURE, UNSPECIFIED (6) History of CVA (cerebrovascular accident) Assessment/Plan: No active issue MRI is -ve for acute stroke Code(s): Z86.73 - PRSNL HX OF TIA (TIA), AND CEREB INFRC W/O RESID DEFICITS (7) HTN (hypertension), benign Assessment/Plan: optimize BP control Code(s): I10 - ESSENTIAL (PRIMARY) HYPERTENSION (8) Obesity (BMI 30-39.9) Assessment/Plan: nutrional consult as ut patient. Code(s): E66.9 - OBESITY, UNSPECIFIED
[2018-11-02] MEDS: METOPROLOL TARTRATE 50 MG TABLET (FP) PO SCH ×2 (09:06→21:11)
[2018-11-02] MEDS: TIMOLOL 0.5% OPHTHALMIC SOL 5 ML BOTTLE OU SCH (09:07)
[2018-11-02] MEDS: NYSTATIN/TRIAMCINOLONE TOPICAL OINTMENT 15 GM TUBE TP SCH ×2 (09:07→22:55)
[2018-11-02] MEDS: NIFEdipine E.R 60 MG TABLET (UD) PO SCH (09:07)
--- NOTE | 2018-11-02 09:09 | PN ---
Progress Note (short form) - Note Progress Note: Neurology CHIEF COMPLAINT: seizure HISTORY OF PRESENT ILLNESS: 58 year old female with a significant past medical history of R sided hemorrhagic stroke with complex partial seizures as a result, HTN, HLD, who presented to the ED with complaints of reportedly seizure like episode that occured 1.5 hours prior to ED arrival. As per patient's family at bedside patient stated that she felt her seizure coming on. According to notes, family reported her legs were shaking. EMS reports giving 5 versed IV in the field. Seizures resolved at that time. Family reported no trauma, fevers, chills. Per med recon, she is on trileptal 150 mg BID. Was contacted by ER overnight and patient reportedly with seizure event in ED, reportedly given Ativan. CT head completed and without acute changes, labs reviewed. EEG reviewed and demonstrated evidence of encephalopathy but no abnormal epileptiform activity. Appreciate coverage over the past week. Patient with fluctuating mental status improved now awake, alert, interactive and recognizes me. Spinal tap completed and with 5 wbc, 7rbc, increased protein to 90, glucose normal. On broad spectrum Abx with improvement in mental status, now on Nystatin/Triamcinolone. Trileptal stabe at 300mg. MRI brain completed and without acute changes. Able to tell me she's in the hospital, knows it's , can tell me it's october, difficulty with year but able to state 2019 eventually. ID note Active Medications Acetaminophen (Tylenol -) 650 mg PO Q6H PRN PRN Reason: FEVER Last Admin: 10/29/18 22:07 Dose: 650 mg Albuterol Sulfate (Ventolin 0.083% Nebulizer Soln -) 1 amp NEB RQID JOSEF Last Admin: 11/02/18 08:19 Dose: 1 amp Albuterol Sulfate (Ventolin 0.083% Nebulizer Soln -) 1 amp NEB Q4H PRN PRN Reason: SHORT OF BREATH/WHEEZING Piperacillin Sod/Tazobactam (Sod 2.25 gm/ Dextrose) 50 mls @ 100 mls/hr IVPB Q8H-IV JOSEF; Protocol Last Admin: 11/02/18 01:11 Dose: 100 mls/hr Sodium Chloride (1/2 Normal Saline) 1,000 mls @ 75 mls/hr IV ASDIR JOSEF Last Admin: 11/02/18 01:12 Dose: 75 mls/hr Metoprolol Tartrate (Lopressor -) 50 mg PO BID [facility] Last Admin: 11/01/18 21:16 Dose: 50 mg Nifedipine (Procardia Xl -) 60 mg PO DAILY [facility] Last Admin: 11/01/18 10:56 Dose: 60 mg Nystatin/Triamcinolone Acetonide (Mycolog Ii Ointment -) 1 applic TP BID [facility] Last Admin: 11/01/18 21:16 Dose: 1 applic Ofloxacin (Ocuflox 0.3% Eye Drops -) 1 drop OU Q4HWA [facility] Last Admin: 11/02/18 05:15 Dose: 1 drop Oxcarbazepine (Trileptal) 300 mg PO BID [facility] Last Admin: 11/01/18 21:17 Dose: 300 mg Timolol Maleate (Timoptic 0.5%) 1 drop OU DAILY [facility] Last Admin: 11/01/18 10:58 Dose: 1 drop PHYSICAL EXAMINATION Vital Signs Period Temp Pulse Resp BP Sys/Lewis Pulse Ox Last 24 Hr 98.0 F-99.2 F 78-93 16-18 123-153/69-90 100-100 GENERAL:awake, alert, interactive, follows basic commands HEAD: NC/AT EYES: EOMI, MICA , sclera anicteric ENT: moist mucous membrane NECK: Supple, no JVD, obese LUNGS: CTA B/L, no crackles no wheezing no accessory muscle use. HEART: RRR, NSR, normal s1, s2, murmur no M/R/G ABDOMEN: Obese ,Soft, ND, NT, +BS 4 Q, no CVA Tenderness LOWER EXTREMITIES: no edema, +2DP pulse, NEUROLOGICAL: Awake, alert, but not fully oriented, moving all extremities, not aggresive, sensory intact, gait deferred CBCD WBC 6.2 K/mm3 (4.0-10.0) 11/02/18 06:00 RBC 4.11 M/mm3 (3.60-5.2) 11/02/18 06:00 Hgb 10.2 GM/dL (10.7-15.3) L 11/02/18 06:00 Hct 30.6 % (32.4-45.2) L 11/02/18 06:00 MCV 74.3 fl (80-96) L 11/02/18 06:00 MCHC 33.5 g/dl (32.0-36.0) 11/02/18 06:00 RDW 18.6 % (11.6-15.6) H 11/02/18 06:00 Plt Count 492 K/MM3 (134-434) H 11/02/18 06:00 MPV 7.8 fl (7.5-11.1) 11/02/18 06:00 CMP Sodium 140 mmol/L (136-145) 11/02/18 06:00 Potassium 4.2 mmol/L (3.5-5.1) 11/02/18 06:00 Chloride 109 mmol/L (98-107) H 11/02/18 06:00 Carbon Dioxide 24 mmol/L (21-32) 11/02/18 06:00 Anion Gap 6 MMOL/L (8-16) L 11/02/18 06:00 BUN 18 mg/dL (7-18) 11/02/18 06:00 Creatinine 1.3 mg/dL (0.55-1.3) 11/02/18 06:00 Creat Clearance w eGFR 42.22 (>60) 11/02/18 06:00 Random Glucose 68 mg/dL (74-106) L 11/02/18 06:00 Calcium 8.7 mg/dL (8.5-10.1) 11/02/18 06:00 Total Bilirubin 0.5 mg/dL (0.2-1) 11/02/18 06:00 AST 17 U/L (15-37) 11/02/18 06:00 ALT 28 U/L (13-61) 11/02/18 06:00 Alkaline Phosphatase 66 U/L (45-117) 11/02/18 06:00 Total Protein 6.7 g/dl (6.4-8.2) 11/02/18 06:00 Albumin 2.6 g/dl (3.4-5.0) L 11/02/18 06:00 CARDIAC ENZYMES Creatine Kinase 262 U/L (26-192) H 10/30/18 13:15 Troponin I 0.03 ng/ml (0.00-0.05) 10/13/18 06:17 ASSESSMENT/PLAN: 58 year old female with a significant past medical history of R sided hemorrhagic stroke with complex partial seizures as a result, HTN, HLD, who presented to the ED with complaints of reportedly seizure like episode that occured 1.5 hours prior to ED arrival. As per patient's family at bedside patient stated that she felt her seizure coming on. According to notes, family reported her legs were shaking. EMS reports giving 5 versed IV in the field. Seizures resolved at that time. Family reported no trauma, fevers, chills. Per med recon, she is on trileptal 150 mg BID. Was contacted by ER overnight and patient reportedly with seizure event in ED, reportedly given Ativan. CT head completed and without acute changes, labs reviewed. Appreciate coverage over the weekend. Patient much improved and near baseline mental status. Spinal tap completed and with 5 wbc, 7rbc, increased protein to 90, glucose normal. Has been on broad spectrum Abx. Trileptal also increased to 300mg. Has been on broad spectrum Abx with improvement in mental status. Trileptal stabe at 300mg. MRI brain completed and without acute changes. Able to tell me she's in the hospital, knows it's [facility], can tell me it's october, difficulty with year. Remains calm and cooperative this am, continue medical optimization. No new CVA or seizures. Continue to monitor neurologic status. .
[2018-11-02] MEDS: OXcarbazepine 300 MG/5 ML 250 ML BULK BOTTLE PO SCH ×2 (09:14→21:12)
[2018-11-02] MEDS ORDERED: ALPRAZolam 0.25 MG TABLET PO ONE (13:00)
--- NOTE | 2018-11-02 13:43 | CONSULT ---
Consult - text type - Consultation Consultation Note: Dermatology Came to see patient for a generalized exfoliative dermatitis. previously patient had generalized erythema and some areas of vesiculation on thighs and buttock. eruption occured after getting treated with Zosyn . patient has no oral blisters and has no discomfort The eruption is now resolving with generalized exfoliation of skin . there is some edema of right hand. Possible reaction to zosyn therefore another antibiotic should be utilized if needed. apply vaseline to affected skin and consider prednisone if condition worsens. Thank You
--- NOTE | 2018-11-02 17:32 | PN ---
Physical Exam: SUBJECTIVE: Patient seen and examined. She is "feeling great because she took care of two babies last night". OBJECTIVE: Vital Signs Period Temp Pulse Resp BP Sys/Lewis Pulse Ox Last 24 Hr 97.3 F-98.2 F 75-84 18-20 138-162/82-103 100-100 GENERAL: The patient is awake, alert, in bed. HEAD: Normal with no signs of trauma. EYES: Extraocular movements intact. ENT: Oropharynx clear without exudates, moist mucous membranes. NECK: Trachea midline, full range of motion, supple. LUNGS: Clear to auscultation bilaterally, no wheezes, no crackles, no accessory muscle use. HEART: Distant heart sounds, regular rate and rhythm, S1, S2 without murmur, rub or gallop. ABDOMEN: Obese, soft, nontender, nondistended, normoactive bowel sounds, no guarding, no masses. EXTREMITIES: 2+ pulses, warm, well-perfused, 1+ edema. NEUROLOGICAL: Normal speech, gait not observed. PSYCH: Normal mood, normal affect. SKIN: Warm, dry, no rash, dry skin on elbows, peeling of the skin in multiple location, excoriations in the back, left arm, buttocks. Laboratory Results - last 24 hr 11/02/18 11/02/18 06:00 06:00 WBC 6.2 RBC 4.11 Hgb 10.2 L Hct 30.6 L MCV 74.3 L MCH 24.9 L MCHC 33.5 RDW 18.6 H Plt Count 492 H MPV 7.8 Absolute Neuts (auto) 2.7 Neutrophils % 43.0 D Lymphocytes % 40.7 H D Monocytes % 11.9 H D Eosinophils % 3.0 D Basophils % 1.4 Nucleated RBC % 1 H Sodium 140 Potassium 4.2 Chloride 109 H Carbon Dioxide 24 Anion Gap 6 L BUN 18 Creatinine 1.3 Creat Clearance w eGFR 42.22 Random Glucose 68 L Calcium 8.7 Total Bilirubin 0.5 AST 17 ALT 28 Alkaline Phosphatase 66 Total Protein 6.7 Albumin 2.6 L Active Medications Generic Name Dose Route Start Last Admin Trade Name Freq PRN Reason Stop Dose Admin Acetaminophen 650 mg 10/24/18 20:25 10/29/18 22:07 Tylenol - PO 650 mg Q6H PRN Administration FEVER Albuterol Sulfate 1 amp 10/30/18 12:00 11/02/18 15:50 Ventolin 0.083% Nebulizer Soln - NEB Not Given RQID JOSEF Albuterol Sulfate 1 amp 10/30/18 10:36 Ventolin 0.083% Nebulizer Soln - NEB Q4H PRN SHORT OF BREATH/WHEEZING Sodium Chloride 1,000 mls @ 75 mls/hr 10/30/18 10:45 11/02/18 01:12 1/2 Normal Saline IV 75 mls/hr ASDIR JOSEF Administration Metoprolol Tartrate 50 mg 10/24/18 22:00 11/02/18 09:06 Lopressor - PO 50 mg BID JOSEF Administration Nifedipine 60 mg 10/25/18 10:00 11/02/18 09:07 Procardia Xl - PO 60 mg DAILY JOSEF Administration Nystatin/Triamcinolone Acetonide 1 applic 10/26/18 23:15 11/02/18 09:07 Mycolog Ii Ointment - TP 1 applic BID JOSEF Administration Ofloxacin 1 drop 10/24/18 22:00 11/02/18 16:13 Ocuflox 0.3% Eye Drops - OU 1 drop Q4HWA JOSEF Administration Oxcarbazepine 300 mg 10/24/18 22:00 11/02/18 09:14 Trileptal PO 300 mg BID JOSEF Administration Timolol Maleate 1 drop 10/25/18 10:00 11/02/18 09:07 Timoptic 0.5% OU 1 drop DAILY JOSEF Administration ASSESSMENT/PLAN: 58 year old female with a significant past medical history of R sided hemorrhagic stroke with complex partial seizures as a result, HTN, HLD, admitted s/p seizure episode. Acute metabolic encephalopathy -unknown cause for now, likely infectious, possible HCAP after seizure episode, aspiration pneumonia, r/o meningitis, LP nl, done late, PCR HSV neg, f/u rheum factors, YARED neg, CH50 nl, -MRI brain completed and without acute changes,, f/u repeated EEG -new blood cultures collected Group D Strep -Trileptal at 300mg, -no fever in 24 hrs -Empiryc Zosyn -Strep pneumo. neg -will f/u Psych recommendations, no history of mental disease as per family but pt continues to be confused Acute respiratory failure with hypoxia -resolved, Oxygen 97% on RA -continue to monitor, fluids stopped Skin peeling with excorations: -h/o of sjs -dermatology consulted, vasoline and prednisone if needed -mycostatin RAMYA: -resolved -avoid nephrotoxins -renal sonogram with no acute pathology -cont gentle hydration, Mojica removed Pulmonary edema -improved clinically Seizure -continue trileptal HTN -controlled -continue lopressor 50 mg BID, procardia 60 mg qd and Enalapril 5 mg History of CVA -stable -MRI reviewed, consulted Neurology Obesity (BMI 30-39.9) -counseling provided DVT PPX: heparin F/E/N: yes/no changes/soft diet Dispo> telemetry monitoring Problem List - Problems (1) Acute metabolic encephalopathy Code(s): G93.41 - METABOLIC ENCEPHALOPATHY (2) Acute respiratory failure with hypoxia Code(s): J96.01 - ACUTE RESPIRATORY FAILURE WITH HYPOXIA (3) Pulmonary edema Code(s): J81.1 - CHRONIC PULMONARY EDEMA Qualifiers: Chronicity: acute Qualified Code(s): J81.0 - Acute pulmonary edema (4) Seizure Code(s): R56.9 - UNSPECIFIED CONVULSIONS (5) Cerebrovascular accident (CVA) Code(s): I63.9 - CEREBRAL INFARCTION, UNSPECIFIED Qualifiers: CVA mechanism: other Qualified Code(s): I63.89 - Other cerebral infarction (6) DVT prophylaxis Code(s): IKB3154 - (7) Edema Code(s): R60.9 - EDEMA, UNSPECIFIED Qualifiers: Edema type: unspecified Qualified Code(s): R60.9 - Edema, unspecified (8) HTN (hypertension), benign Code(s): I10 - ESSENTIAL (PRIMARY) HYPERTENSION (9) History of CVA (cerebrovascular accident) Code(s): Z86.73 - PRSNL HX OF TIA (TIA), AND CEREB INFRC W/O RESID DEFICITS (10) Obesity (BMI 30-39.9) Code(s): E66.9 - OBESITY, UNSPECIFIED (11) Acute kidney injury Code(s): N17.9 - ACUTE KIDNEY FAILURE, UNSPECIFIED (12) CKD (chronic kidney disease) stage 3, GFR 30-59 ml/min Code(s): N18.3 - CHRONIC KIDNEY DISEASE, STAGE 3 (MODERATE) Visit type - Emergency Visit Emergency Visit: Yes ED Registration Date: 10/13/18 Care time: The patient presented to the Emergency Department on the above date and was hospitalized for further evaluation of their emergent condition. - New Patient This patient is new to me today: No - Critical Care Critical Care patient: No
[2018-11-02] MEDS ORDERED: PT OWN MED DRAWER 7, Y5N ONE (21:07)
[2018-11-03] MEDS: OFLOXACIN 0.3% OPHTHALMIC SOLUTION 5 ML BOTTLE OU SCH ×3 (06:56→15:10)
[2018-11-03] MEDS: ALBUTEROL SO4 0.083% IH SOL 2.5 MG/3 ML VIAL.NEB. NEB SCH ×2 (07:49→11:12)
--- NOTE | 2018-11-03 09:18 | PN ---
Progress Note (short form) - Note Progress Note: Neurology CHIEF COMPLAINT: seizure HISTORY OF PRESENT ILLNESS: 58 year old female with a significant past medical history of R sided hemorrhagic stroke with complex partial seizures as a result, HTN, HLD, who presented to the ED with complaints of reportedly seizure like episode that occured 1.5 hours prior to ED arrival. As per patient's family at bedside patient stated that she felt her seizure coming on. According to notes, family reported her legs were shaking. EMS reports giving 5 versed IV in the field. Seizures resolved at that time. Family reported no trauma, fevers, chills. Per med recon, she is on trileptal 150 mg BID. Was contacted by ER overnight and patient reportedly with seizure event in ED, reportedly given Ativan. CT head completed and without acute changes, labs reviewed. EEG reviewed and demonstrated evidence of encephalopathy but no abnormal epileptiform activity. Appreciate coverage over the past week. Patient with fluctuating mental status improved now awake, alert, interactive and recognizes me. Spinal tap completed and with 5 wbc, 7rbc, increased protein to 90, glucose normal. On broad spectrum Abx with improvement in mental status, now on Nystatin/Triamcinolone. Trileptal stabe at 300mg. MRI brain completed and without acute changes. Frustrated that she keeps having blood drawn. Advised that it's needed to monitor clinical course. Active Medications Acetaminophen (Tylenol -) 650 mg PO Q6H PRN PRN Reason: FEVER Last Admin: 10/29/18 22:07 Dose: 650 mg Albuterol Sulfate (Ventolin 0.083% Nebulizer Soln -) 1 amp NEB RQID [facility] Last Admin: 11/03/18 07:49 Dose: 1 amp Albuterol Sulfate (Ventolin 0.083% Nebulizer Soln -) 1 amp NEB Q4H PRN PRN Reason: SHORT OF BREATH/WHEEZING Sodium Chloride (1/2 Normal Saline) 1,000 mls @ 75 mls/hr IV ASDIR [facility] Last Admin: 11/02/18 18:35 Dose: Not Given Metoprolol Tartrate (Lopressor -) 50 mg PO BID [facility] Last Admin: 11/02/18 21:11 Dose: 50 mg Nifedipine (Procardia Xl -) 60 mg PO DAILY [facility] Last Admin: 11/02/18 09:07 Dose: 60 mg Nystatin/Triamcinolone Acetonide (Mycolog Ii Ointment -) 1 applic TP BID [facility] Last Admin: 11/02/18 22:55 Dose: Not Given Ofloxacin (Ocuflox 0.3% Eye Drops -) 1 drop OU Q4HWA [facility] Last Admin: 11/03/18 06:56 Dose: 1 drop Oxcarbazepine (Trileptal) 300 mg PO BID [facility] Last Admin: 11/02/18 21:12 Dose: 300 mg Timolol Maleate (Timoptic 0.5%) 1 drop OU DAILY [facility] Last Admin: 11/02/18 09:07 Dose: 1 drop PHYSICAL EXAMINATION Vital Signs Period Temp Pulse Resp BP Sys/Lewis Pulse Ox Last 24 Hr 97.4 F-98.2 F 77-95 20-20 110-162/57-99 GENERAL:awake, alert, interactive, follows basic commands HEAD: NC/AT EYES: EOMI, MICA , sclera anicteric ENT: moist mucous membrane NECK: Supple, no JVD, obese LUNGS: CTA B/L, no crackles no wheezing no accessory muscle use. HEART: RRR, NSR, normal s1, s2, murmur no M/R/G ABDOMEN: Obese ,Soft, ND, NT, +BS 4 Q, no CVA Tenderness LOWER EXTREMITIES: no edema, +2DP pulse, NEUROLOGICAL: Awake, alert, but not fully oriented, moving all extremities, not aggresive, sensory intact, gait deferred CBCD WBC 6.2 K/mm3 (4.0-10.0) 11/02/18 06:00 RBC 4.11 M/mm3 (3.60-5.2) 11/02/18 06:00 Hgb 10.2 GM/dL (10.7-15.3) L 11/02/18 06:00 Hct 30.6 % (32.4-45.2) L 11/02/18 06:00 MCV 74.3 fl (80-96) L 11/02/18 06:00 MCHC 33.5 g/dl (32.0-36.0) 11/02/18 06:00 RDW 18.6 % (11.6-15.6) H 11/02/18 06:00 Plt Count 492 K/MM3 (134-434) H 11/02/18 06:00 MPV 7.8 fl (7.5-11.1) 11/02/18 06:00 CMP Sodium 140 mmol/L (136-145) 11/02/18 06:00 Potassium 4.2 mmol/L (3.5-5.1) 11/02/18 06:00 Chloride 109 mmol/L (98-107) H 11/02/18 06:00 Carbon Dioxide 24 mmol/L (21-32) 11/02/18 06:00 Anion Gap 6 MMOL/L (8-16) L 11/02/18 06:00 BUN 18 mg/dL (7-18) 11/02/18 06:00 Creatinine 1.3 mg/dL (0.55-1.3) 11/02/18 06:00 Creat Clearance w eGFR 42.22 (>60) 11/02/18 06:00 Random Glucose 68 mg/dL (74-106) L 11/02/18 06:00 Calcium 8.7 mg/dL (8.5-10.1) 11/02/18 06:00 Total Bilirubin 0.5 mg/dL (0.2-1) 11/02/18 06:00 AST 17 U/L (15-37) 11/02/18 06:00 ALT 28 U/L (13-61) 11/02/18 06:00 Alkaline Phosphatase 66 U/L (45-117) 11/02/18 06:00 Total Protein 6.7 g/dl (6.4-8.2) 11/02/18 06:00 Albumin 2.6 g/dl (3.4-5.0) L 11/02/18 06:00 CARDIAC ENZYMES Creatine Kinase 262 U/L (26-192) H 10/30/18 13:15 Troponin I 0.03 ng/ml (0.00-0.05) 10/13/18 06:17 ASSESSMENT/PLAN: 58 year old female with a significant past medical history of R sided hemorrhagic stroke with complex partial seizures as a result, HTN, HLD, who presented to the ED with complaints of reportedly seizure like episode that occured 1.5 hours prior to ED arrival. As per patient's family at bedside patient stated that she felt her seizure coming on. According to notes, family reported her legs were shaking. EMS reports giving 5 versed IV in the field. Seizures resolved at that time. Family reported no trauma, fevers, chills. Per [facility], she is on trileptal 150 mg BID. Was contacted by ER overnight and patient reportedly with seizure event in ED, reportedly given Ativan. CT head completed and without acute changes, labs reviewed. Appreciate coverage over the weekend. Patient much improved and near baseline mental status. Spinal tap completed and with 5 wbc, 7rbc, increased protein to 90, glucose normal. Has been on broad spectrum Abx. Trileptal also increased to 300mg. Has been on broad spectrum Abx with improvement in mental status. Trileptal stabe at 300mg. MRI brain completed and without acute changes. Able to tell me she's in the hospital, knows it's [facility], can tell me it's october, with year. Remains calm and cooperative this am, continue medical optimization. No new CVA or seizures. Continue to monitor neurologic status. .
--- NOTE | 2018-11-03 09:55 | PN ---
Progress Note, Physician Chief Complaint: Feels improved no new lesions - Current Medication List Current Medications: Active Medications Acetaminophen (Tylenol -) 650 mg PO Q6H PRN PRN Reason: FEVER Last Admin: 10/29/18 22:07 Dose: 650 mg Albuterol Sulfate (Ventolin 0.083% Nebulizer Soln -) 1 amp NEB RQID [facility] Last Admin: 11/03/18 07:49 Dose: 1 amp Albuterol Sulfate (Ventolin 0.083% Nebulizer Soln -) 1 amp NEB Q4H PRN PRN Reason: SHORT OF BREATH/WHEEZING Sodium Chloride (1/2 Normal Saline) 1,000 mls @ 75 mls/hr IV ASDIR [facility] Last Admin: 11/02/18 18:35 Dose: Not Given Metoprolol Tartrate (Lopressor -) 50 mg PO BID [facility] Last Admin: 11/02/18 21:11 Dose: 50 mg Nifedipine (Procardia Xl -) 60 mg PO DAILY [facility] Last Admin: 11/02/18 09:07 Dose: 60 mg Nystatin/Triamcinolone Acetonide (Mycolog Ii Ointment -) 1 applic TP BID [facility] Last Admin: 11/02/18 22:55 Dose: Not Given Ofloxacin (Ocuflox 0.3% Eye Drops -) 1 drop OU Q4HWA [facility] Last Admin: 11/03/18 06:56 Dose: 1 drop Oxcarbazepine (Trileptal) 300 mg PO BID [facility] Last Admin: 11/02/18 21:12 Dose: 300 mg Timolol Maleate (Timoptic 0.5%) 1 drop OU DAILY [facility] Last Admin: 11/02/18 09:07 Dose: 1 drop - Objective Vital Signs: Vital Signs Temperature 98.2 F 11/03/18 06:08 Pulse Rate 92 H 11/03/18 06:08 Respiratory Rate 20 11/03/18 06:08 Blood Pressure 112/58 L 11/03/18 06:08 O2 Sat by Pulse Oximetry (%) 100 11/02/18 09:00 Middle aged F not in distress, HEENT: mm moist, oral MM is intact NECK: No JVd No Bruit CHEST: CTA B/L CVS: S1S2 R no m/g/r ABD: obese, non tender Bs + EXT: no indu afeet, no vcalgf tenderness TIME CHECKER: Alert but confused (as per regulatory internship improving) at base line Left sided hemiparesis. EXT: Rt UE swelling DERM: diffuse scalded lesion all over rhe body, mainly trunk Labs: CBC, BMP 11/02/18 06:00 11/02/18 06:00 INR, PTT INR 0.99 (0.83-1.09) 10/31/18 07:30 Problem List - Problems (1) Altered mental state Assessment/Plan: of unknown etiology h/o Partial complex seizure possibality of post ictal , patient Ms is waxing and waning evaluated by psych, neurology CT haed and MRI Brain no acute changes, Ist EEG abnormal but no epileptic focci. will observe F/ U rpt EEG result. Code(s): R41.82 - ALTERED MENTAL STATUS, UNSPECIFIED (2) Seizure Assessment/Plan: Cont Trileptal 300 mg daily Code(s): R56.9 - UNSPECIFIED CONVULSIONS (3) Skin rash Assessment/Plan: Multiple drug allergies in the past reports simillar rash with Dilantin and Keppra, Derm consulted recommonded topical steroids and Vaseline Code(s): R21 - RASH AND OTHER NONSPECIFIC SKIN ERUPTION (4) Fever Assessment/Plan: intially treated emparically for meningitis with IV Ceftriaxone and Acyclovir, LP negative had episode of fever with elevated TWBC on ampiric Zsyn now with generalised skin lesions, Id on the case U grew VRE sensitive to daptomycin patient s afebrile TWBC trended normal. will F/ u with Derm to switch to Daptomycin. Code(s): R50.9 - FEVER, UNSPECIFIED (5) Acute kidney injury Assessment/Plan: Improved aboid nephrotoxic meds Code(s): N17.9 - ACUTE KIDNEY FAILURE, UNSPECIFIED (6) History of CVA (cerebrovascular accident) Assessment/Plan: No active issue MRI is -ve for acute stroke Code(s): Z86.73 - PRSNL HX OF TIA (TIA), AND CEREB INFRC W/O RESID DEFICITS (7) HTN (hypertension), benign Assessment/Plan: optimize BP control Code(s): I10 - ESSENTIAL (PRIMARY) HYPERTENSION (8) Obesity (BMI 30-39.9) Assessment/Plan: nutrional consult as ut patient. Code(s): E66.9 - OBESITY, UNSPECIFIED
[2018-11-03 10:22] LABS: EOS % 4.9 % (0-4.5); HEMATOCRIT 31.7 % (32.4-45.2); HEMOGLOBIN 10.5 GM/dL (10.7-15.3); LYMPH % 32.6 % (8-40); MCH 24.8 pg (25.7-33.7); MCHC 33.2 g/dl (32.0-36.0); MEAN CELL VOLUME 74.7 fl (80-96); MONO % 11.1 % (3.8-10.2); NEUT % 50.4 % (42.8-82.8); PLATELET COUNT 514 K/MM3 (134-434); RBC 4.24 M/mm3 (3.60-5.2); RDW 18.8 % (11.6-15.6); WHITE BLOOD COUNT 8.8 K/mm3 (4.0-10.0)
[2018-11-03] MEDS: METOPROLOL TARTRATE 50 MG TABLET (FP) PO SCH (10:36)
[2018-11-03] MEDS: NYSTATIN/TRIAMCINOLONE TOPICAL OINTMENT 15 GM TUBE TP SCH (10:36)
[2018-11-03] MEDS: TIMOLOL 0.5% OPHTHALMIC SOL 5 ML BOTTLE OU SCH (10:37)
[2018-11-03] MEDS: NIFEdipine E.R 60 MG TABLET (UD) PO SCH (10:37)
[2018-11-03] MEDS: SODIUM CHLORIDE 0.45% 1,000 ML IV SCH (10:38)
[2018-11-03] MEDS ORDERED: PT OWN MED DRAWER 7, Y5N ONE ×2 (10:40→14:50)
[2018-11-03] MEDS: OXcarbazepine 300 MG/5 ML 250 ML BULK BOTTLE PO SCH (10:43)
[2018-11-03] MEDS ORDERED: PETROLATUM, WHITE 30 GM TUBE TP SCH (10:45)
[2018-11-03 10:53] LABS: ALBUMIN 2.8 g/dl (3.4-5.0); ALK PHOS 68 U/L (45-117); ANION GAP 7 MMOL/L (8-16); BILIRUBIN,TOTAL 0.4 mg/dL (0.2-1); BLOOD UREA NITROGEN 11 mg/dL (7-18); CALCIUM 9.2 mg/dL (8.5-10.1); CHLORIDE 108 mmol/L (98-107); CO2 26 mmol/L (21-32); CREATININE 1.1 mg/dL (0.55-1.3); GLUCOSE,RANDOM 78 mg/dL (74-106); POTASSIUM 4.5 mmol/L (3.5-5.1); SGOT/AST 14 U/L (15-37); SGPT/ALT 26 U/L (13-61); SODIUM 141 mmol/L (136-145); TOT PROT 6.9 g/dl (6.4-8.2)
--- NOTE | 2018-11-03 12:06 | DS ---
Physical Examination Vital Signs: Vital Signs Temperature 97.7 F 11/03/18 10:56 Pulse Rate 91 H 11/03/18 10:56 Respiratory Rate 18 11/03/18 10:56 Blood Pressure 156/93 11/03/18 10:56 O2 Sat by Pulse Oximetry (%) 100 11/02/18 09:00 Middle aged F not in distress, walking comfortably MS improved. HEENT: mm moist, oral MM is intact NECK: No JVd No Bruit CHEST: CTA B/L CVS: S1S2 R no m/g/r ABD: obese, non tender Bs + EXT: no indu afeet, no vcalgf tenderness MANAGER CLINIC: Alert but confused (as per internet consultant improving) at base line Left sided hemiparesis. EXT: Rt UE swelling DERM: diffuse scalded lesion all over rhe body, mainly trunk Labs: CBC, BMP 11/03/18 09:40 11/03/18 06:00 CBC,CMP WBC 8.8 K/mm3 (4.0-10.0) 11/03/18 09:40 Corrected WBC (auto) 0.02 K/mm3 10/21/18 07:00 RBC 4.24 M/mm3 (3.60-5.2) 11/03/18 09:40 Hgb 10.5 GM/dL (10.7-15.3) L 11/03/18 09:40 Hct 31.7 % (32.4-45.2) L 11/03/18 09:40 MCV 74.7 fl (80-96) L 11/03/18 09:40 MCH 24.8 pg (25.7-33.7) L 11/03/18 09:40 MCHC 33.2 g/dl (32.0-36.0) 11/03/18 09:40 RDW 18.8 % (11.6-15.6) H 11/03/18 09:40 Plt Count 514 K/MM3 (134-434) H 11/03/18 09:40 MPV 8.0 fl (7.5-11.1) 11/03/18 09:40 Absolute Neuts (auto) 4.5 K/mm3 (1.5-8.0) 11/03/18 09:40 Absolute Lymphs (auto) Cancelled 10/13/18 00:45 Absolute Monos (auto) Cancelled 10/13/18 00:45 Absolute Eos (auto) Cancelled 10/13/18 00:45 Absolute Basos (auto) Cancelled 10/13/18 00:45 Add Manual Diff Cancelled 10/13/18 00:45 Neutrophils % 50.4 % (42.8-82.8) 11/03/18 09:40 Neutrophils % (Manual) 47.5 % (42.8-82.8) 10/31/18 07:30 Band Neutrophils % 0.0 % 10/31/18 07:30 Lymphocytes % 32.6 % (8-40) 11/03/18 09:40 Lymphocytes % (Manual) 40.4 % (8-40) H D 10/31/18 07:30 Monocytes % 11.1 % (3.8-10.2) H 11/03/18 09:40 Monocytes % (Manual) 6 % (3.8-10.2) 10/31/18 07:30 Eosinophils % 4.9 % (0-4.5) H 11/03/18 09:40 Eosinophils % (Manual) 3.0 % (0-4.5) 10/31/18 07:30 Basophils % 1.0 % (0-2.0) 11/03/18 09:40 Basophils % (Manual) 2.0 % (0-2.0) D 10/31/18 07:30 Myelocytes % (Man) 0 % (0-2) 10/31/18 07:30 Promyelocytes % (Man) 0 % (0-2) 10/31/18 07:30 Blast Cells % (Manual) 0 % (0-0) 10/31/18 07:30 Nucleated RBC % 0 % (0-0) 11/03/18 09:40 Metamyelocytes 0 % (0-2) D 10/31/18 07:30 Hypochromia 0 10/31/18 07:30 Toxic Granulation 1+ 10/14/18 06:00 Platelet Estimate Normal 10/31/18 07:30 Platelet Comment Cancelled 10/13/18 00:45 Normal RBC Morphology Cancelled 10/13/18 00:45 Polychromasia 0 10/31/18 07:30 Poikilocytosis 1+ 10/31/18 07:30 Anisocytosis 1+ 10/31/18 07:30 Microcytosis 1+ 10/31/18 07:30 Macrocytosis 0 10/31/18 07:30 Target Cells 1+ 10/31/18 07:30 Ovalocytes 1+ 10/22/18 07:00 Schistocytes 1+ 10/31/18 07:30 ESR 38 mm/hr (0-30) H 10/30/18 13:15 Sodium 141 mmol/L (136-145) 11/03/18 06:00 Potassium 4.5 mmol/L (3.5-5.1) 11/03/18 06:00 Chloride 108 mmol/L (98-107) H 11/03/18 06:00 Carbon Dioxide 26 mmol/L (21-32) 11/03/18 06:00 Anion Gap 7 MMOL/L (8-16) L 11/03/18 06:00 BUN 11 mg/dL (7-18) 11/03/18 06:00 Creatinine 1.1 mg/dL (0.55-1.3) 11/03/18 06:00 Creat Clearance w eGFR 51.20 (>60) 11/03/18 06:00 POC Glucometer 117 UNITS (80-120) 10/20/18 10:44 Random Glucose 78 mg/dL (74-106) 11/03/18 06:00 Lactic Acid 1.2 mmol/L (0.4-2.0) 10/18/18 14:50 Calcium 9.2 mg/dL (8.5-10.1) 11/03/18 06:00 Phosphorus 3.2 mg/dL (2.5-4.9) 10/31/18 07:30 Magnesium 2.4 mg/dL (1.8-2.4) 10/31/18 07:30 Total Bilirubin 0.4 mg/dL (0.2-1) 11/03/18 06:00 AST 14 U/L (15-37) L 11/03/18 06:00 ALT 26 U/L (13-61) 11/03/18 06:00 Alkaline Phosphatase 68 U/L (45-117) 11/03/18 06:00 Ammonia 21.80 umol/L (11-32) 10/21/18 07:00 Creatine Kinase 262 U/L (26-192) H 10/30/18 13:15 Creatine Kinase Index 1.7 % (0.0-5.0) 10/30/18 13:15 CK-MB (CK-2) 4.7 ng/mL (0.5-3.6) H 10/30/18 13:15 Troponin I 0.03 ng/ml (0.00-0.05) 10/13/18 06:17 C-Reactive Protein 18.4 MG/DL (0.00-0.3) H 10/30/18 13:15 B-Natriuretic Peptide 1925.8 pg/ml (5-125) H 10/18/18 06:00 Total Protein 6.9 g/dl (6.4-8.2) 11/03/18 06:00 Albumin 2.8 g/dl (3.4-5.0) L 11/03/18 06:00 Vitamin B12 659 pg/ml (193-986) 10/30/18 13:15 Serum Folate 11 ng/mL (3.1-17.5) 10/30/18 13:15 Procalcitonin 1.07 ng/mL (0.00-0.08) H 10/21/18 07:00 TSH 1.39 uIU/ml (0.358-3.74) 10/31/18 07:30 Free T4 1.23 ng/dl (0.76-1.46) 10/21/18 07:00 Free T3 1.8 pg/ml (2.0-4.4) L 10/21/18 07:00 CSF anlysis; Normal HIV -ve Blood Cultures; -ve Urine Culture VRE (colonization) CXR: No acute changes MRI: Old Infarct EEG: no acute epileptic source Rhematological W/U pending results. Discharge Summary Reason For Visit: SEIZURE Current Active Problems Acute metabolic encephalopathy (Acute) Acute respiratory failure with hypoxia (Acute) Altered mental state (Acute) Fever (Acute) Pulmonary edema (Acute) Skin rash (Acute) Seizure (Chronic) Condition: Stable - Instructions Diet, Activity, Other Instructions: You were admitted to the hospital for seizure episode and because your mental status was changed. You were treated with antibiotics and medication for viral infections. Your clinical condition improved and you are being discharged to temporary rehab center to make you stronger. MEDICATIONS: We increased Trileptal to 300 mg twice a day, continue to take it on higher dose. We also started new medication Enalapril 5 mg. Please continue to take it for your elevated blood pressure. Your rash/skin peeling improved. You don't have to continue ointment for that. INSTRUCTIONS/DIET: Please monitor your blood pressure at home. We recommend low sodium diet due to your hypertension. FOLLOW UP: Please see your primary care physician in 1-2 weeks after discharge from the hospital. Visit Neurologist in 2 weeks. Referrals: Lenard Mcrae MD [Staff Physician] - 2 Weeks Aditi Roger MD [Primary Care Provider] - 1 Month Disposition: [facility] - Home Medications Comprehensive Discharge Medication List: Ambulatory Orders Aspirin [ASA -] 81 mg PO DAILY 12/29/15 Metoprolol Tartrate [Lopressor -] 50 mg PO BID #60 tab 10/26/17 Nifedipine [Procardia Xl] 60 mg PO DAILY #30 tab 10/26/17 Oxcarbazepine 150 mg PO BID #60 tablet 10/26/17 Timolol 0.5% [Timoptic 0.5%] 1 drop OU DAILY #1 bottle 10/26/17 Acetaminophen [Tylenol .Regular Strength -] 650 mg PO Q6H PRN tablet 11/03/18 Albuterol 0.083% Nebulizer Emmy [Ventolin 0.083% Nebulizer Soln -] 1 amp NEB RQID amp 11/03/18 Nystatin/Triamcinolone Top Oin [Mycolog II -] 1 applic TP BID applic 11/03/18 Ofloxacin 0.3% Ophth Soln [Ocuflox -] 1 drop OU Q4HWA drops 11/03/18 Petrolatum - White [Vaseline -] 1 applic TP DAILY applic 11/03/18
--- NOTE | 2018-11-03 14:39 | PN ---
Progress Note (short form) - Note Progress Note: Renal follow up for RAMYA Pt seen and examined at the bedside awake and alert no acute complaints tolerating oral diet off IVF making urine denies any sob, cp, abd pain, N/V/D Vital Signs Temperature 97.7 F 11/03/18 10:56 Pulse Rate 91 H 11/03/18 10:56 Respiratory Rate 18 11/03/18 10:56 Blood Pressure 156/93 11/03/18 10:56 O2 Sat by Pulse Oximetry (%) 96 11/03/18 09:00 Intake & Output 10/31/18 11/01/18 11/02/18 11/03/18 23:59 23:59 23:59 23:59 Intake Total 1750 1085 1605 120 Output Total 600 1400 1400 Balance 1150 -315 205 120 NAD awake and alert RRR CTA no LE edema diffuse skin peeling CBC, BMP 11/03/18 09:40 11/03/18 06:00 Current Medications Acetaminophen (Tylenol -) 650 mg PO Q6H PRN PRN Reason: FEVER Last Admin: 10/29/18 22:07 Dose: 650 mg Albuterol Sulfate (Ventolin 0.083% Nebulizer Soln -) 1 amp NEB RQID [facility] Last Admin: 11/03/18 11:12 Dose: Not Given Albuterol Sulfate (Ventolin 0.083% Nebulizer Soln -) 1 amp NEB Q4H PRN PRN Reason: SHORT OF BREATH/WHEEZING Metoprolol Tartrate (Lopressor -) 50 mg PO BID [facility] Last Admin: 11/03/18 10:36 Dose: 50 mg Nifedipine (Procardia Xl -) 60 mg PO DAILY [facility] Last Admin: 11/03/18 10:37 Dose: 60 mg Nystatin/Triamcinolone Acetonide (Mycolog Ii Ointment -) 1 applic TP BID [facility] Last Admin: 11/03/18 10:36 Dose: 1 applic Ofloxacin (Ocuflox 0.3% Eye Drops -) 1 drop OU Q4HWA [facility] Last Admin: 11/03/18 10:36 Dose: 1 drop Oxcarbazepine (Trileptal) 300 mg PO BID [facility] Last Admin: 11/03/18 10:43 Dose: 300 mg Petrolatum (Vaseline) 1 applic TP DAILY [facility] Timolol Maleate (Timoptic 0.5%) 1 drop OU DAILY JOSEF Last Admin: 11/03/18 10:37 Dose: 1 drop 58 year old woman with hx of Right sided hemorragic stroke, Hypertension, HLD, seizure disorder presented with AMS with suspected encephalitis now with recurrent RAMYA. #RAMYA from volume depletion Renal function now improved s/p IVF can discontinue IVF for now and trend renal function stable for discharge can follow up with primary doctor and have repeat labs done in 5-7 days if discharged Varun Avery DO
[2018-11-03 15:12] LABS: ATYPICAL pANCA <1:20 titer (Neg:<1:20); C-ANCA <1:20 titer (Neg:<1:20); P-ANCA <1:20 titer (Neg:<1:20)
[2018-11-03 15:21] VITALS: BP 150/77; PULSE 84; TEMP 98
[2018-11-17 03:10] LABS: MUMPS AB IGG CSF < 5.0 AU/mL (<=10.9)
== END 2018-11-03 15:48 | DRG 720 ==
LOC: JER 22:16 → JERBED 10-13 00:40 → J4S 10-13 06:57
PROVIDERS: ADMIT Internal Medicine; ATTEND Internal Medicine
PROC: 009U3ZX Drainage of Spinal Canal, Percutaneous Approach, Diagnostic (ICD-10-PCS; principal; 2018-10-17)
PROC: B01BZZZ Fluoroscopy of Spinal Cord (ICD-10-PCS; 2018-10-17)
DX: A41.89 Other specified sepsis (principal); J96.01 Acute respiratory failure with hypoxia; N17.0 Acute kidney failure with tubular necrosis; J81.0 Acute pulmonary edema; G93.41 Metabolic encephalopathy; I50.33 Acute on chronic diastolic (congestive) heart failure; I11.0 Hypertensive heart disease with heart failure; E87.0 Hyperosmolality and hypernatremia; J18.9 Pneumonia, unspecified organism; E83.42 Hypomagnesemia; E66.01 Morbid (severe) obesity due to excess calories; Z68.41 Body mass index [BMI] 40.0-44.9, adult; I69.354 Hemiplegia and hemiparesis following cerebral infarction affecting left non-dominant side; R65.20 Severe sepsis without septic shock; B95.2 Enterococcus as the cause of diseases classified elsewhere; G40.909 Epilepsy, unspecified, not intractable, without status epilepticus; E87.6 Hypokalemia; L26 Exfoliative dermatitis; E78.5 Hyperlipidemia, unspecified; I69.398 Other sequelae of cerebral infarction; H54.62 Unqualified visual loss, left eye, normal vision right eye; H10.9 Unspecified conjunctivitis; E07.9 Disorder of thyroid, unspecified; R45.1 Restlessness and agitation
CPT/HCPCS: 36415; 62272; 70450-TC; 70551-TC; 71045-TC-FY; 71250-TC; 74176-TC; 76000-TC-FY; 76098-TC-FY; 76775-TC; 76856-TC; 80048; 80053; 80183; 80307; 81003; 82140; 82308; 82436; 82550; 82553; 82570; 82595; 82607; 82746; 82945; 82962; 83520; 83605; 83735; 83880; 84100; 84133; 84157; 84300; 84439; 84443; 84481; 84484; 85025; 85027; 85610; 85651; 85730; 86038; 86140; 86162; 86256; 86593; 86694; 86695; 86735; 86765; 86787; 86788; 86789; 86850; 87040; 87070; 87086; 87186; 87205; 87207; 87389; 87529; 87804; 87899; 93005; 93010; 93306-TC; 93971; 94640; 94660; 95816; 97116-GP; 97162-GP; 99283-25; G0480; J0131; J1644; J7030

== ENCOUNTER 2018-12-09 15:31 | Observation (INO) | payer OTHER | END 2018-12-10 15:11 | disposition home health service (06) | LOC: J4W 12-10 00:52 → JER 15:31 → JERBED 18:11 ==

== ENCOUNTER 2019-01-22 14:05 | Inpatient (IN) | payer OTHER ==
[2019-01-22] MEDS ORDERED: SODIUM CHLORIDE 0.9% 500 ML INFUS.BAG IV ONE (14:51)
[2019-01-22] MEDS ORDERED: ACETAMINOPHEN 1000 MG/100 ML VIAL (NON FORMULARY) IVPB ONE ×2 (14:51→19:03)
[2019-01-22] MEDS ORDERED: ACETAMINOPHEN 650 MG SUPP.RECT PR ONE (15:10)
[2019-01-22] MEDS ORDERED: LIDOCAINE HCL 1%, 10 MG/ML (50 mL VIAL) SQ ONE (15:11)
[2019-01-22] MEDS ORDERED: LIDOCAINE HCL 1%, 10 MG/ML (20ML VIAL) ONE (15:14)
[2019-01-22] MEDS ORDERED: ACETAMINOPHEN 650 MG SUPP.RECT ONE (15:16)
[2019-01-22] MEDS ORDERED: PIPERACILLIN/TAZOB 4.5 GM 4.5 GM in DEXTROSE 5%-WATER 100 ML IVPB ONE (15:47)
[2019-01-22] MEDS ORDERED: VANCOMYCIN 1 GM in D5W (PRE-DOCKED) 1,000 MG/250 ML IVPB ONE (15:47)
[2019-01-22 15:51] LABS: BASO % 0.4 % (0-2.0); EOS % 0.4 % (0-4.5); HEMATOCRIT 40.2 % (32.4-45.2); LYMPH % 1.9 % (8-40); MCH 24.3 pg (25.7-33.7); MCHC 32.4 g/dl (32.0-36.0); MEAN CELL VOLUME 74.8 fl (80-96); MEAN PLT VOLUME 8.7 fl (7.5-11.1); MONO % 3.4 % (3.8-10.2); NEUT % 93.9 % (42.8-82.8); RBC 5.37 M/mm3 (3.60-5.2); RDW 17.9 % (11.6-15.6); WHITE BLOOD COUNT 18.4 K/mm3 (4.0-10.0)
[2019-01-22 15:57] LABS: PLATELET COUNT 193 K/MM3 (134-434)
[2019-01-22] MEDS ORDERED: HALOPERIDOL LACTATE 5 MG/ML IM ONE (16:05)
[2019-01-22] MEDS ORDERED: LORazepam 2 MG/ML SDV VIAL ONE ×2 (16:07→18:39)
[2019-01-22] MEDS ORDERED: HALOPERIDOL LACTATE 5 MG/ML ONE (16:07)
[2019-01-22] MEDS ORDERED: PIPERACILLIN/TAZOB 4.5 GM 4.5 GM/100 ML BAG IVPB ONE (16:14)
[2019-01-22] MEDS ORDERED: VANCOMYCIN 1 GRAM (PRE-DOCKED) 1,000 MG/250 ML BAG IVPB ONE (16:16)
--- NOTE | 2019-01-22 16:19 | PDOC ---
History of Present Illness - General Chief Complaint: Lethargy Stated Complaint: POSSIBLE STROKE Time Seen by Provider: 01/22/19 14:31 - History of Present Illness Initial Comments: Ruby Alcocer is a 58yo woman with a PMH of hemorrhagic stroke w/ residual left-sided weakness, HTN, HLD, complex partial seizures who presents with AMS, fever, and shaking today. Her sister is at bedside to provide history. Per the sister, Ms Alcocer is generally ambulatory and conversational at baseline. Yesterday, she was in her usual state of health. She went with the sister and mother yesterday to tour a SNF; on the way home, she reported that she felt nauseated with an episode of vomiting. Otherwise, she has had no complaints recently. Today, her sister noticed that the pt was "lethargic" and shaking as well as poorly responsive. She was unable to complete a conversation. The sister helped give her medications this morning but was concerned that she was acting strangely. Ms Alcocer is unable to provide any additional information. Past History - Past Medical History Allergies/Adverse Reactions: Allergies Allergy/AdvReac Type Severity Reaction Status Date / Time levetiracetam [From Keppra] AdvReac Verified 01/22/19 14:25 phenytoin sodium AdvReac Verified 01/22/19 14:25 [From Dilantin] phenytoin sodium extended AdvReac Verified 01/22/19 14:25 [From Dilantin] Home Medications: Ambulatory Orders Aspirin [ASA -] 81 mg PO DAILY 12/29/15 Metoprolol Tartrate [Lopressor -] 50 mg PO BID #60 tab 10/26/17 Nifedipine [Procardia Xl] 60 mg PO DAILY #30 tab 10/26/17 Oxcarbazepine 150 mg PO BID #60 tablet 10/26/17 Timolol 0.5% [Timoptic 0.5%] 1 drop OU DAILY #1 bottle 10/26/17 Acetaminophen [Tylenol .Regular Strength -] 650 mg PO Q6H PRN tablet 11/03/18 Albuterol 0.083% Nebulizer Emmy [Ventolin 0.083% Nebulizer Soln -] 1 amp NEB RQID amp 11/03/18 Nystatin/Triamcinolone Top Oin [Mycolog II -] 1 applic TP BID applic 11/03/18 Ofloxacin 0.3% Ophth Soln [Ocuflox -] 1 drop OU Q4HWA drops 11/03/18 Petrolatum - White [Vaseline -] 1 applic TP DAILY applic 11/03/18 CVA: Yes (Right hemmohagic stroke 2005 - residual loss of left peripheral vision) COPD: No CHF: No HTN: Yes Hypercholesterolemia: Yes Seizures: Yes (Post-CVA) - Suicide/Smoking/Psychosocial Hx Smoking History: Former smoker Have you smoked in the past 12 months: No Information on smoking cessation initiated: No Hx Alcohol Use: No Drug/Substance Use Hx: No Substance Use Type: None Review of Systems - Review of Systems Comments:: Could not obtain *Physical Exam - Vital Signs Last Vital Signs Temp Pulse Resp BP Pulse Ox 102.5 F H 101 H 32 H 120/60 100 01/22/19 14:05 01/22/19 14:05 01/22/19 14:05 01/22/19 14:05 01/22/19 14:05 - Physical Exam Comments: General: Uncomfortable, poorly responsive, diaphoretic. Warm to touch HEENT: PERRL, EOMI, dry lips w/ white crusting Cards: Tachycardic, no murmur appreciated Pulm: Comfortable on room air. No wheezing or crackles on anterior exam Abd: Soft, nontender, nondistended Ext: Atraumatic. No LE edema Vasc: Extremities WWP Skin: Normal color, no rashes or lesions Neuro: Awake, not responsive, opens eyes to stimuli, localizes to pain, moves all extremities, face symmetric Psych: Appears to be hallucinating; grabbing as if to reach something in the air in front of her ED Treatment Course - LABORATORY CBC & Chemistry Diagram: 01/22/19 15:25 01/22/19 15:50 - ADDITIONAL ORDERS Additional order review: 01/22/19 15:25 RBC 5.37 H MCV 74.8 L MCHC 32.4 RDW 17.9 H MPV 8.7 Neutrophils % 93.9 H D Lymphocytes % 1.9 L D Monocytes % 3.4 L Eosinophils % 0.4 D Basophils % 0.4 - RADIOLOGY Radiology Studies Ordered: Category Date Time Status HEAD CT WITHOUT CONTRAST [CT] Stat CT Scan 01/22/19 15:48 Ordered CHEST X-RAY PORTABLE* [RAD] Stat Radiology 01/22/19 14:31 Ordered - Medications Given in the ED: ED Medications Discontinued Medications Generic Name Dose Route Start Last Admin Trade Name Gordon PRN Reason Stop Dose Admin Acetaminophen 1,000 mg 01/22/19 14:51 01/22/19 15:33 Ofirmev Injection - IVPB 01/22/19 14:52 Not Given ONCE ONE Acetaminophen 650 mg 01/22/19 15:10 01/22/19 15:32 Tylenol Suppository - AL 01/22/19 15:11 650 mg ONCE ONE Administration Haloperidol 5 mg 01/22/19 16:05 01/22/19 16:12 Haldol Injection (Fast Acting) - IM 01/22/19 16:06 5 mg ONCE ONE Administration Lidocaine HCl 10 ml 01/22/19 15:11 01/22/19 15:32 Xylocaine 1% SQ 01/22/19 15:12 10 ml ONCE ONE Administration Lorazepam 2 mg 01/22/19 16:06 01/22/19 16:13 Ativan Injection - IM 01/22/19 16:07 2 mg ONCE ONE Administration Sodium Chloride 2,000 ml 01/22/19 14:51 01/22/19 15:32 Normal Saline - IV 01/22/19 14:52 2,000 ml ONCE ONE Administration Medical Decision Making - Medical Decision Making 01/22/19 16:19 Ruby Alcocer is a 58yo woman with a PMH of hemorrhagic stroke w/ residual left-sided weakness, HTN, HLD, complex partial seizures who presents with AMS, fever, and shaking today. She is currently nonverbal, localizing to pain, and appears unable to communicate. Per chart review, pt had similar episode with RAMYA , confusion, fever in September and October 2018. - Febrile to 102.5, tachycardic, tachypnic on arrival - Sepsis workup ordered - CT head given AMS and h/o hemorrhagic stroke - Significant difficulty placing IV. Multiple attempts made by nurse Kyra, Dr Ndiaye, and myself. IO placed in Rt tibia by me so that fluids and meds could be given - IVF, acetaminophen, vanc, zosyn for sepsis with currently unknown source 01/22/19 16:25 - CT could not be completed due to combativeness. - 5mg haldol, 2mg ativan given IM. Will reattempt CT when pt is less agitated 01/22/19 16:44 - Still notably agitated. Additional 2mg IV ativan ordered - Labs reviewed. Notable for leukocytosis to 18.4. Chemistry w/ BUN 62.7 from baseline 18, Cr 5.0 from baseline 1.1 - Mojica ordered for accurate I&O and to obtain 01/22/19 17:39 - Mojica placed. Urine grossly purulent. Most likely sepsis secondeary to UTI - Pt less combative. Will take to CT when possible - Sending microblog for admission. 01/22/19 18:31 - UA with positive bacteria, leuk esterase, 53 WBC's, positive blood - CT completed. Reviewed in ED. No acute pathology or bleeding noted, but radiology report pending - CXR completed. No focal abnormalities seen 01/22/19 19:45 - Spoke to Dr Ward regarding admission, will come to see the pt - Reviewed EKG. Sinus tach, HR 103, normal axis, normal intervals, no ST changes. 01/22/19 20:29 - Seen by Dr Ward, Will admit to med/surg - Repeat lactate 1.8 - Pt's sister now at bedside. Reports that pt always becomes confused and combative when she is sick, states the confusion was "much worse" when admitted in September. Patient's mental status has improved slightly, now attempting to speak to her sister though speech is still difficult to comprehend. - Waiting for bed upstairs Discussed with Gladys Ndiaye and Igor. Rohini Pantoja PGY2 *DC/Admit/Observation/Transfer Diagnosis at time of Disposition: Acute kidney injury Altered mental state Qualifiers: Altered mental status type: delirium Qualified Code(s): R41.0 - Disorientation , unspecified Fever Qualifiers: Fever type: unspecified Qualified Code(s): R50.9 - Fever, unspecified - Discharge Dispostion Decision to Admit order: Yes - Referrals - Patient Instructions - Post Discharge Activity
--- NOTE | 2019-01-22 16:21 | PDOC ---
Documentation entered by Lilia Sprague SCRIBE, acting as scribe for Princess Ndiaye MD. Princess Ndiaye MD: This documentation has been prepared by the Celestine patel Mackenzie, SCRIBE, under my direction and personally reviewed by me in its entirety. I confirm that the documentation accurately reflects all work , treatment, procedures, and medical decision making performed by me. Attending Attestation - Resident Resident Name: Rohini Pantoja - ED Attending Attestation I have performed the following: I have examined & evaluated the patient, The case was reviewed & discussed with the resident, I agree w/resident's findings & plan, Exceptions are as noted - HPI HPI: The patient is a 58 year old female, with a significant PMH of CVA (2007) w/ residual left sided weakness (altered gait) and seizure disorder who presents to the emergency department severely agitated and completely disoriented. Patients sister states yesterday at approximately noon the patient began feeling nauseous and seemed tired and confused. The patients sister endorses 2 episodes of vomiting (NBNB) and states she was prompted to bring the patient in today because she began presenting with rigors hallucinations and was hot to touch. The patient denies chest pain, shortness of breath, headache and dizziness. Denies fever, chills, nausea, vomiting, diarrhea and constipation. Denies dysuria, frequency, urgency and hematuria. Allergies: As per chart Past surgical history: As per resident note 01/22/19 16:33 - Physicial Exam PE: GENERAL: Awake, alert, confused. Combative at times HEAD: No signs of trauma EYES: PERRLA, EOMI, sclera anicteric, conjunctiva clear ENT: Auricles normal inspection, hearing grossly normal, nares patent, oropharynx clear without exudates. Dry mucosa NECK: Normal ROM, supple, no lymphadenopathy, JVD, or masses LUNGS: Breath sounds equal, clear to auscultation bilaterally. No wheezes, and no crackles. +Tachypnea HEART: Tachycardic with regular rhythm, normal S1 and S2, no murmurs, rubs or gallops ABDOMEN: Soft, nontender, normoactive bowel sounds. No guarding, no rebound. No masses EXTREMITIES: Normal range of motion, no edema. No clubbing or cyanosis. No cords, erythema, or tenderness NEUROLOGICAL: Limited by confusion. Patient moving all extremities. Paucity of speech SKIN: Warm, dry, normal turgor, no rashes or lesions noted. +Tactile fever. + Facial flushing - Medical Decision Making 01/22/19 16:41 Late entry. Patient presented with AMS, found to have high fever. Sepsis order set initiated. IV access was difficult- patient was confused, combative, dehydrated, and a difficult stick. Attempts were made to hands, L EJ (patient moved with each attempt, and the placement would be missed), unsuccessful. At this point, tylenol was given rectally to help with her temp while attempting to get access. Then an IO was placed to give IV fluids and abx. Butterfly was used to obtain blood samples from L hand. Will prioritize CTH to r/o ICH. Pt given sedation to control combativeness for CTH. Will get more definitive IV access after that. Await labs, CXR, UA, CTH. If all of workup is negative, will have to get an LP to r/o meningitis.
[2019-01-22 16:23] LABS: INR 1.34 (0.83-1.09); PROTHROMBIN TIME (PATIENT) 15.8 SEC (9.7-13.0)
[2019-01-22 16:25] LABS: ACTIVATED PTT 25.3 SECONDS (25.2-36.5)
[2019-01-22 16:31] LABS: ALBUMIN 3.1 g/dl (3.4-5.0); ALK PHOS 53 U/L (45-117); ANION GAP 15 MMOL/L (8-16); BILIRUBIN,TOTAL 0.3 mg/dL (0.2-1); BLOOD UREA NITROGEN 62.7 mg/dL (7-18); CALCIUM 8.4 mg/dL (8.5-10.1); CHLORIDE 106 mmol/L (98-107); CO2 20 mmol/L (21-32); GLUCOSE,RANDOM 76 mg/dL (74-106); SGOT/AST 56 U/L (15-37); SGPT/ALT 32 U/L (13-61); SODIUM 141 mmol/L (136-145); TOT PROT 6.5 g/dl (6.4-8.2)
[2019-01-22 17:28] LABS: PLATELET ESTIMATE ADEQUATE
[2019-01-22 18:24] LABS: EPI CELLS 7.7 /HPF (0-5/HPF); HYALINE CASTS 73 /lpf (0-8); URINE APPEARANCE TURBID; URINE BILIRUBIN NEGATIVE (NEGATIVE); URINE COLOR DK YELLOW; URINE GLUCOSE (UA) NEGATIVE (NEGATIVE); URINE KETONE TRACE (NEGATIVE); URINE LEUK ESTERASE 2+ (NEGATIVE); URINE NITRITE NEGATIVE (NEGATIVE); URINE PROTEIN 2+ (NEGATIVE); URINE WBC 53 /hpf (0-5)
[2019-01-22] MEDS ORDERED: ACETAMINOPHEN INJECTION 100 ML IVPB ONE (18:39)
[2019-01-22 18:44] LABS: URINE RBC 5.5 /hpf (0-4)
[2019-01-22 19:46] LABS: VENOUS PC02 34.1 mmHg (41-51); VENOUS PH 7.39 (7.31-7.41); VENOUS PO2 54.3 mmHg (30-40)
--- NOTE | 2019-01-22 20:12 | HP ---
CHIEF COMPLAINT: AMS, fever PCP:Dr. Roger History obtained from EMR and ER staff HISTORY OF PRESENT ILLNESS: 58 year old female, with a significant PMH of CVA (2007) w/ residual left sided weakness (altered gait) and seizure disorder presented severely agitated and completely disoriented. Patients sister states yesterday at approximately noon the patient began feeling nauseous and seemed tired and confused. The patients sister endorsed 2 episodes of vomiting (NBNB) and states she was prompted to bring the patient in today because she began presenting with rigors hallucinations and was hot to touch ER course was notable for: (1) head ct (2) ekg (3) 2 L NS IV fluid Recent Travel: unknown PAST MEDICAL HISTORY: emorrhagic stroke w/ residual left-sided weakness, HTN, HLD, complex partial seizures PAST SURGICAL HISTORY: no Social History: unknown Smoking: Alcohol: Drugs: Family History: unknown Allergies levetiracetam [From Keppra] Adverse Reaction (Verified 01/22/19 14:25) phenytoin sodium [From Dilantin] Adverse Reaction (Verified 01/22/19 14:25) phenytoin sodium extended [From Dilantin] Adverse Reaction (Verified 01/22/19 14 :25) HOME MEDICATIONS: Home Medications Medication Instructions Recorded Aspirin [ASA -] 81 mg PO DAILY 12/29/15 Metoprolol Tartrate [Lopressor -] 50 mg PO BID #60 tab 10/26/17 Nifedipine [Procardia Xl] 60 mg PO DAILY #30 tab 10/26/17 Oxcarbazepine 150 mg PO BID #60 tablet 10/26/17 Timolol 0.5% [Timoptic 0.5%] 1 drop OU DAILY #1 bottle 10/26/17 Acetaminophen [Tylenol .Regular 650 mg PO Q6H PRN tablet 11/03/18 Strength -] Albuterol 0.083% Nebulizer Emmy 1 amp NEB RQID amp 11/03/18 [Ventolin 0.083% Nebulizer Soln -] Nystatin/Triamcinolone Top Oin 1 applic TP BID applic 11/03/18 [Mycolog II -] Ofloxacin 0.3% Ophth Soln [Ocuflox 1 drop OU Q4HWA drops 11/03/18 -] Petrolatum - White [Vaseline -] 1 applic TP DAILY applic 11/03/18 REVIEW OF SYSTEMS- unable to obtain due to altered mental status PHYSICAL EXAMINATION Vital Signs - 24 hr 01/22/19 01/22/19 14:05 18:50 Temperature 102.5 F H 101.3 F H Pulse Rate 101 H Pulse Rate [ 106 H Left Radial] Respiratory 32 H 14 Rate Blood Pressure 120/60 Blood Pressure 125/92 [Right Arm] O2 Sat by Pulse 100 100 Oximetry (%) GENERAL:awake, obtunded, not cooperative, combatative HEAD: Normal with no signs of trauma. EYES: Pupils equal, round and reactive to light, extraocular movements intact, sclera anicteric, conjunctiva clear. No lid lag. EARS, NOSE, THROAT: Ears normal, nares patent, oropharynx clear without exudates. Moist mucous membranes. NECK: Normal range of motion, supple without lymphadenopathy, JVD, or masses. LUNGS: Breath sounds equal, clear to auscultation bilaterally. No wheezes, and no crackles. No accessory muscle use. HEART: Regular rate and rhythm, normal S1 and S2 without murmur, rub or gallop. ABDOMEN: Soft, nontender, not distended, normoactive bowel sounds, no guarding, no rebound,obese MUSCULOSKELETAL: Normal range of motion at all joints. No bony deformities or tenderness. No CVA tenderness. UPPER EXTREMITIES: 2+ pulses, warm, well-perfused. No cyanosis. No clubbing. No peripheral edema. LOWER EXTREMITIES: left leg IO line in place NEUROLOGICAL: no neck stiffness, ams SKIN: Warm, dry, normal turgor, no rashes or lesions noted, normal capillary refill. Laboratory Results - last 24 hr 01/22/19 01/22/19 01/22/19 15:25 15:50 15:50 WBC 18.4 H RBC 5.37 H Hgb 13.0 Hct 40.2 MCV 74.8 L MCH 24.3 L MCHC 32.4 RDW 17.9 H Plt Count 193 D MPV 8.7 Absolute Neuts (auto) 17.3 H Neutrophils % 93.9 H D Neutrophils % (Manual) 83.0 H Band Neutrophils % 10.0 Lymphocytes % 1.9 L D Lymphocytes % (Manual) 2.0 L D Monocytes % 3.4 L Monocytes % (Manual) 4 Eosinophils % 0.4 D Eosinophils % (Manual) 1.0 Basophils % 0.4 Nucleated RBC % 0 Hypochromia 1+ Platelet Estimate Adequate PT with INR 15.80 H INR 1.34 H PTT (Actin FS) 25.3 VBG pH POC VBG pCO2 POC VBG pO2 VBG HCO3 VBG O2 Sat (Gill) VBG Base Excess Sodium 141 Potassium 5.0 Chloride 106 Carbon Dioxide 20 L Anion Gap 15 BUN 62.7 H Creatinine 5.0 H Est GFR (CKD-EPI)AfAm 10.35 Est GFR (CKD-EPI)NonAf 8.93 Random Glucose 76 Lactic Acid Calcium 8.4 L Total Bilirubin 0.3 AST 56 H ALT 32 Alkaline Phosphatase 53 Troponin I < 0.02 Total Protein 6.5 Albumin 3.1 L Urine Color Urine Appearance Urine pH Ur Specific [place] Urine Protein Urine Glucose (UA) Urine Ketones Urine Blood Urine Nitrite Urine Bilirubin Urine Urobilinogen Ur Leukocyte Esterase Urine WBC (Auto) Urine RBC (Auto) Urine Casts (Auto) U Epithel Cells (Auto) Urine Bacteria (Auto) 01/22/19 01/22/19 01/22/19 15:50 18:00 19:40 WBC RBC Hgb Hct MCV MCH MCHC RDW Plt Count MPV Absolute Neuts (auto) Neutrophils % Neutrophils % (Manual) Band Neutrophils % Lymphocytes % Lymphocytes % (Manual) Monocytes % Monocytes % (Manual) Eosinophils % Eosinophils % (Manual) Basophils % Nucleated RBC % Hypochromia Platelet Estimate PT with INR INR PTT (Actin FS) VBG pH 7.39 POC VBG pCO2 34.1 L POC VBG pO2 54.3 H VBG HCO3 20.1 L VBG O2 Sat (Gill) 85.5 H VBG Base Excess -3.7 L Sodium Potassium Chloride Carbon Dioxide Anion Gap BUN Creatinine Est GFR (CKD-EPI)AfAm Est GFR (CKD-EPI)NonAf Random Glucose Lactic Acid 4.0 H* Calcium Total Bilirubin AST ALT Alkaline Phosphatase Troponin I Total Protein Albumin Urine Color Dk yellow Urine Appearance Turbid Urine pH 5.0 D Ur Specific [place] 1.019 Urine Protein 2+ H Urine Glucose (UA) Negative Urine Ketones Trace H Urine Blood 2+ H Urine Nitrite Negative Urine Bilirubin Negative Urine Urobilinogen 1.0 Ur Leukocyte Esterase 2+ H Urine WBC (Auto) 53 Urine RBC (Auto) 5.5 Urine Casts (Auto) 73 U Epithel Cells (Auto) 7.7 Urine Bacteria (Auto) 18.0 01/22/19 19:40 WBC RBC Hgb Hct MCV MCH MCHC RDW Plt Count MPV Absolute Neuts (auto) Neutrophils % Neutrophils % (Manual) Band Neutrophils % Lymphocytes % Lymphocytes % (Manual) Monocytes % Monocytes % (Manual) Eosinophils % Eosinophils % (Manual) Basophils % Nucleated RBC % Hypochromia Platelet Estimate PT with INR INR PTT (Actin FS) VBG pH POC VBG pCO2 POC VBG pO2 VBG HCO3 VBG O2 Sat (Gill) VBG Base Excess Sodium Potassium Chloride Carbon Dioxide Anion Gap BUN Creatinine Est GFR (CKD-EPI)AfAm Est GFR (CKD-EPI)NonAf Random Glucose Lactic Acid 1.8 Calcium Total Bilirubin AST ALT Alkaline Phosphatase Troponin I Total Protein Albumin Urine Color Urine Appearance Urine pH Ur Specific [place] Urine Protein Urine Glucose (UA) Urine Ketones Urine Blood Urine Nitrite Urine Bilirubin Urine Urobilinogen Ur Leukocyte Esterase Urine WBC (Auto) Urine RBC (Auto) Urine Casts (Auto) U Epithel Cells (Auto) Urine Bacteria (Auto) Imaging reviewed ekg showed sinus tachycardia. ASSESSMENT/PLAN: Sepsis, high fevers, leukocytosis, lactic acidosis (now resolved) altered mental status. Patient may have sepsis secondary to urinary tract infection as pyuria, LE+ present on UA. May be metabolic encephalopathy secondary to infection. However in light of high fevers, reported hallucinations, must rule out meningitis/ viral encephalitis. Acute renal failure seen with HAGMA- uncertain etiology however may be multifactorial. Uremia from renal failure may also certainly contribute to altered mentation. Head CT was negative for any acute insults. S/p empiric vancomycin and zosyn in ER. Seizure disorder. Confirm up to date AED with neurology and pharmacy. -admit to med/surg -NPO -monitor blood glucose -correct any electrolyte abnormalities -IV fluid hydration -bed rest -fall precautions -wrist restraints- pt pulling out lines, tubes -maintain olivas catheter -i/o -daily weights a -avoid nephrotoxins -renal u/s -vancomycin, ampicillin, acycvlovir IV, ceftriaxone to cover empirically for possible bacteria meningitis and HSV encephalitis - dose adjusted for renal failure -blood urine cultures -LP when feasible -ID, neuro, renal consults -heparin sc for dvt ppx Visit type - Emergency Visit Emergency Visit: Yes Care time: The patient presented to the Emergency Department on the above date and was hospitalized for further evaluation of their emergent condition. - New Patient This patient is new to me today: Yes Date on this admission: 01/22/19 - Critical Care Critical Care patient: No
[2019-01-22] MEDS ORDERED: SODIUM CHLORIDE 1,000 ML IV SCH ×2 (20:15→20:30)
[2019-01-22] MEDS ORDERED: AMPICILLIN SODIUM 250 MG VIAL IVPB ONE (20:36)
[2019-01-22] MEDS ORDERED: ACYCLOVIR INJECTION 500 MG in DEXTROSE 5%-WATER - 100 ML IVPB ONE (20:37)
[2019-01-22] MEDS ORDERED: CEFTRIAXONE 2 GM-D5W BAG 2 GM/50 ML BAG IVPB ONE (20:45)
[2019-01-22] MEDS ORDERED: AMPICILLIN - 2 GM in SODIUM CHLORIDE 100 ML IVPB ONE (20:45)
[2019-01-22] MEDS: HEPARIN NA (PORCINE) 5,000 UNITS/ML 1ML VIAL SQ SCH (22:40)
[2019-01-23] MEDS ORDERED: ACETAMINOPHEN 1000 MG/100 ML VIAL (NON FORMULARY) IVPB ONE (00:53)
[2019-01-23] MEDS ORDERED: CEFTRIAXONE 2 GM in DEXTROSE 5%-WATER 100 ML IVPB ONE (01:00)
[2019-01-23] MEDS ORDERED: ACETAMINOPHEN INJECTION 100 ML IVPB ONE (02:14)
[2019-01-23 07:12] LABS: ARTERIAL BLD GAS O2 SATURATION 99.4 % (95-98); ARTERIAL BLOOD GAS BASE EXCESS -5.4 meq/l (-2-2); ARTERIAL BLOOD GAS PCO2 29.8 mmHg (35-45); ARTERIAL BLOOD GAS PO2 174 mmHg (80-105)
[2019-01-23 07:17] LABS: HEMATOCRIT 37.7 % (32.4-45.2); HEMOGLOBIN 12.3 GM/dL (10.7-15.3); MCH 24.6 pg (25.7-33.7); MCHC 32.7 g/dl (32.0-36.0); MEAN CELL VOLUME 75.3 fl (80-96); MEAN PLT VOLUME 9.1 fl (7.5-11.1); PLATELET COUNT 150 K/MM3 (134-434); RBC 5.01 M/mm3 (3.60-5.2); RDW 17.8 % (11.6-15.6); WHITE BLOOD COUNT 13.2 K/mm3 (4.0-10.0)
[2019-01-23 07:18] LABS: ALLENS TEST POSITIVE
[2019-01-23 07:27] LABS: ALBUMIN 2.8 g/dl (3.4-5.0); BILIRUBIN,DIRECT 0.2 mg/dL (0.0-0.2); BILIRUBIN,TOTAL 0.5 mg/dL (0.2-1); BLOOD UREA NITROGEN 75.6 mg/dL (7-18); CALCIUM 7.8 mg/dL (8.5-10.1); CREATININE 5.4 mg/dL (0.55-1.3); MAGNESIUM 2.2 mg/dL (1.8-2.4); POTASSIUM 4.1 mmol/L (3.5-5.1); TOT PROT 5.8 g/dl (6.4-8.2)
--- NOTE | 2019-01-23 09:03 | PN ---
Physical Exam: SUBJECTIVE: Patient seen and examined. Seen on NRB mask. Pt with increased work of breathing appears in some distress. Denies chest pain. OBJECTIVE: Vital Signs Period Temp Pulse Resp BP Sys/Lewis Pulse Ox Last 24 Hr 99.0 F-102.5 F 100-108 14-32 119-150/60-127 95-100 Vital Signs Temp 99.0 F 01/23/19 05:40 Pulse 103 H 01/23/19 10:36 Resp 32 H 01/23/19 05:40 BP 119/61 01/23/19 05:40 Pulse Ox 99 01/23/19 10:36 Intake & Output 01/22/19 01/22/19 01/23/19 11:59 23:59 11:59 Output Total 200 Balance -200 Weight 107.955 kg Output: Urine 200 Mojica 200 Other: Voiding Method Diaper Height 1.75 m Body Mass Index (BMI) 35.1 GENERAL: The patient is awake, lethargic in some respiratory distress. Sating above 90% EYES: PERRL, extraocular movements intact, sclera anicteric ENT:NRB mask in place NECK: supple. LUNGS: B/l wheezes HEART:S1, S2 tachycardia ABDOMEN: Soft, obese, hypoactive bowel sounds, no guarding EXTREMITIES: Peripheral line RLE, IO wrapped in RLE, wrist restraints in place NEUROLOGICAL: Pt lethargic SKIN: Hyperpigmentation over thighs anteriomedially, blisters over L thigh, blister over UE CBC, BMP 01/23/19 06:25 01/23/19 06:25 Laboratory Results - last 24 hr 01/22/19 01/22/19 01/22/19 15:25 15:50 15:50 WBC 18.4 H RBC 5.37 H Hgb 13.0 Hct 40.2 MCV 74.8 L MCH 24.3 L MCHC 32.4 RDW 17.9 H Plt Count 193 D MPV 8.7 Absolute Neuts (auto) 17.3 H Neutrophils % 93.9 H D Neutrophils % (Manual) 83.0 H Band Neutrophils % 10.0 Lymphocytes % 1.9 L D Lymphocytes % (Manual) 2.0 L D Monocytes % 3.4 L Monocytes % (Manual) 4 Eosinophils % 0.4 D Eosinophils % (Manual) 1.0 Basophils % 0.4 Nucleated RBC % 0 Hypochromia 1+ Platelet Estimate Adequate PT with INR 15.80 H INR 1.34 H PTT (Actin FS) 25.3 Anticoagulation Therapy Puncture Site ABG pH ABG pCO2 at Pt Temp ABG pO2 at Pt Temp ABG HCO3 ABG O2 Sat (Measured) ABG O2 Content ABG Base Excess Danie Test VBG pH POC VBG pCO2 POC VBG pO2 VBG HCO3 VBG O2 Sat (Gill) VBG Base Excess O2 Delivery Device Oxygen Flow Rate Vent Mode Vent Rate Mechanical Rate Pressure Support Vent Sodium 141 Potassium 5.0 Chloride 106 Carbon Dioxide 20 L Anion Gap 15 BUN 62.7 H Creatinine 5.0 H Est GFR (CKD-EPI)AfAm 10.35 Est GFR (CKD-EPI)NonAf 8.93 Random Glucose 76 Lactic Acid Calcium 8.4 L Magnesium Total Bilirubin 0.3 Direct Bilirubin AST 56 H ALT 32 Alkaline Phosphatase 53 Creatine Kinase 1356 H Creatine Kinase Index 1.0 CK-MB (CK-2) 14.7 H Troponin I < 0.02 Total Protein 6.5 Albumin 3.1 L TSH Urine Color Urine Appearance Urine pH Ur Specific [place] Urine Protein Urine Glucose (UA) Urine Ketones Urine Blood Urine Nitrite Urine Bilirubin Urine Urobilinogen Ur Leukocyte Esterase Urine WBC (Auto) Urine RBC (Auto) Urine Casts (Auto) U Epithel Cells (Auto) Urine Bacteria (Auto) 01/22/19 01/22/19 01/22/19 15:50 18:00 19:40 WBC RBC Hgb Hct MCV MCH MCHC RDW Plt Count MPV Absolute Neuts (auto) Neutrophils % Neutrophils % (Manual) Band Neutrophils % Lymphocytes % Lymphocytes % (Manual) Monocytes % Monocytes % (Manual) Eosinophils % Eosinophils % (Manual) Basophils % Nucleated RBC % Hypochromia Platelet Estimate PT with INR INR PTT (Actin FS) Anticoagulation Therapy Puncture Site ABG pH ABG pCO2 at Pt Temp ABG pO2 at Pt Temp ABG HCO3 ABG O2 Sat (Measured) ABG O2 Content ABG Base Excess Danie Test VBG pH 7.39 POC VBG pCO2 34.1 L POC VBG pO2 54.3 H VBG HCO3 20.1 L VBG O2 Sat (Gill) 85.5 H VBG Base Excess -3.7 L O2 Delivery Device Oxygen Flow Rate Vent Mode Vent Rate Mechanical Rate Pressure Support Vent Sodium Potassium Chloride Carbon Dioxide Anion Gap BUN Creatinine Est GFR (CKD-EPI)AfAm Est GFR (CKD-EPI)NonAf Random Glucose Lactic Acid 4.0 H* Calcium Magnesium Total Bilirubin Direct Bilirubin AST ALT Alkaline Phosphatase Creatine Kinase Creatine Kinase Index CK-MB (CK-2) Troponin I Total Protein Albumin TSH Urine Color Dk yellow Urine Appearance Turbid Urine pH 5.0 D Ur Specific [place] 1.019 Urine Protein 2+ H Urine Glucose (UA) Negative Urine Ketones Trace H Urine Blood 2+ H Urine Nitrite Negative Urine Bilirubin Negative Urine Urobilinogen 1.0 Ur Leukocyte Esterase 2+ H Urine WBC (Auto) 53 Urine RBC (Auto) 5.5 Urine Casts (Auto) 73 U Epithel Cells (Auto) 7.7 Urine Bacteria (Auto) 18.0 01/22/19 01/23/19 01/23/19 19:40 06:00 06:25 WBC 13.2 H RBC 5.01 Hgb 12.3 Hct 37.7 MCV 75.3 L MCH 24.6 L MCHC 32.7 RDW 17.8 H Plt Count 150 D MPV 9.1 Absolute Neuts (auto) Neutrophils % Neutrophils % (Manual) Band Neutrophils % Lymphocytes % Lymphocytes % (Manual) Monocytes % Monocytes % (Manual) Eosinophils % Eosinophils % (Manual) Basophils % Nucleated RBC % Hypochromia Platelet Estimate PT with INR INR PTT (Actin FS) Anticoagulation Therapy No Result Required. Puncture Site Right radial ABG pH 7.40 ABG pCO2 at Pt Temp 29.8 L ABG pO2 at Pt Temp 174 H ABG HCO3 17.9 L ABG O2 Sat (Measured) 99.4 H ABG O2 Content 17.0 ABG Base Excess -5.4 L Danie Test Positive VBG pH POC VBG pCO2 POC VBG pO2 VBG HCO3 VBG O2 Sat (Gill) VBG Base Excess O2 Delivery Device Nrb mask Oxygen Flow Rate 100% Vent Mode No Result Required. Vent Rate No Result Required. Mechanical Rate No Result Required. Pressure Support Vent No Result Required. Sodium Potassium Chloride Carbon Dioxide Anion Gap BUN Creatinine Est GFR (CKD-EPI)AfAm Est GFR (CKD-EPI)NonAf Random Glucose Lactic Acid 1.8 Calcium Magnesium Total Bilirubin Direct Bilirubin AST ALT Alkaline Phosphatase Creatine Kinase Creatine Kinase Index CK-MB (CK-2) Troponin I Total Protein Albumin TSH Urine Color Urine Appearance Urine pH Ur Specific [place] Urine Protein Urine Glucose (UA) Urine Ketones Urine Blood Urine Nitrite Urine Bilirubin Urine Urobilinogen Ur Leukocyte Esterase Urine WBC (Auto) Urine RBC (Auto) Urine Casts (Auto) U Epithel Cells (Auto) Urine Bacteria (Auto) 01/23/19 06:25 WBC RBC Hgb Hct MCV MCH MCHC RDW Plt Count MPV Absolute Neuts (auto) Neutrophils % Neutrophils % (Manual) Band Neutrophils % Lymphocytes % Lymphocytes % (Manual) Monocytes % Monocytes % (Manual) Eosinophils % Eosinophils % (Manual) Basophils % Nucleated RBC % Hypochromia Platelet Estimate PT with INR INR PTT (Actin FS) Anticoagulation Therapy Puncture Site ABG pH ABG pCO2 at Pt Temp ABG pO2 at Pt Temp ABG HCO3 ABG O2 Sat (Measured) ABG O2 Content ABG Base Excess Danie Test VBG pH POC VBG pCO2 POC VBG pO2 VBG HCO3 VBG O2 Sat (Gill) VBG Base Excess O2 Delivery Device Oxygen Flow Rate Vent Mode Vent Rate Mechanical Rate Pressure Support Vent Sodium 141 Potassium 4.1 Chloride 107 Carbon Dioxide 19 L Anion Gap 14 BUN 75.6 H Creatinine 5.4 H Est GFR (CKD-EPI)AfAm 9.43 Est GFR (CKD-EPI)NonAf 8.13 Random Glucose 95 Lactic Acid Calcium 7.8 L Magnesium 2.2 Total Bilirubin 0.5 Direct Bilirubin 0.2 AST 63 H ALT 44 Alkaline Phosphatase 48 Creatine Kinase Creatine Kinase Index CK-MB (CK-2) Troponin I Total Protein 5.8 L Albumin 2.8 L TSH 0.90 Urine Color Urine Appearance Urine pH Ur Specific [place] Urine Protein Urine Glucose (UA) Urine Ketones Urine Blood Urine Nitrite Urine Bilirubin Urine Urobilinogen Ur Leukocyte Esterase Urine WBC (Auto) Urine RBC (Auto) Urine Casts (Auto) U Epithel Cells (Auto) Urine Bacteria (Auto) Active Medications Generic Name Dose Route Start Last Admin Trade Name Freq PRN Reason Stop Dose Admin Acetaminophen 1,000 mg 01/23/19 07:13 Ofirmev Injection - IVPB Q6H PRN FEVER Albuterol Sulfate 1 amp 01/23/19 08:00 Ventolin 0.083% Nebulizer Soln - Kartela RQID JOSEF Heparin Sodium (Porcine) 5,000 unit 01/22/19 22:00 01/22/19 22:40 Heparin - SQ 5,000 unit BID JOSEF Administration Sodium Chloride 1,000 mls @ 125 mls/hr 01/22/19 20:30 01/22/19 21:36 Normal Saline - IV 125 mls/hr ASDIR JOSEF Administration Timolol Maleate 1 drop 01/23/19 10:00 Timoptic 0.5% OU DAILY [facility] Ambulatory Orders Aspirin [ASA -] 81 mg PO DAILY 12/29/15 Metoprolol Tartrate [Lopressor -] 50 mg PO BID #60 tab 10/26/17 Nifedipine [Procardia Xl] 60 mg PO DAILY #30 tab 10/26/17 Oxcarbazepine 150 mg PO BID #60 tablet 10/26/17 Timolol 0.5% [Timoptic 0.5%] 1 drop OU DAILY #1 bottle 10/26/17 Acetaminophen [Tylenol .Regular Strength -] 650 mg PO Q6H PRN tablet 11/03/18 Albuterol 0.083% Nebulizer Emmy [Ventolin 0.083% Nebulizer Soln -] 1 amp NEB RQID amp 11/03/18 Nystatin/Triamcinolone Top Oin [Mycolog II -] 1 applic TP BID applic 11/03/18 Ofloxacin 0.3% Ophth Soln [Ocuflox -] 1 drop OU Q4HWA drops 11/03/18 Petrolatum - White [Vaseline -] 1 applic TP DAILY applic 11/03/18 Current Medications Acetaminophen (Ofirmev Injection -) 1,000 mg IVPB Q6H PRN PRN Reason: FEVER Albuterol Sulfate (Ventolin 0.083% Nebulizer Soln -) 1 amp NEB RQID JOSEF Last Admin: 01/23/19 09:15 Dose: 1 amp Albuterol/Ipratropium (Duoneb -) 1 amp NEB Q6H PRN PRN Reason: SHORTNESS OF BREATH Heparin Sodium (Porcine) (Heparin -) 5,000 unit SQ BID JOSEF Last Admin: 01/22/19 22:40 Dose: 5,000 unit Sodium Chloride (Normal Saline -) 1,000 mls @ 125 mls/hr IV ASDIR JOSEF Last Admin: 01/22/19 21:36 Dose: 125 mls/hr Propofol (Diprivan -) 1,000,000 mcg in 100 mls @ 3.239 mls/hr IVPB TITR JOSEF; Protocol Lactated Ringer's (Lactated Ringers Solution) 1,000 ml in 1,000 mls @ 100 mls/ hr IV ASDIR JOSEF Daptomycin 600 mg/ Sodium (Chloride) 100 mls @ 200 mls/hr IVPB Q48H JOSEF; Protocol Aztreonam 1 gm/ Dextrose 50 mls @ 100 mls/hr IVPB Q12H JOSEF Timolol Maleate (Timoptic 0.5%) 1 drop OU DAILY JOSEF Renal US-periportal edema, Echogenic R kidney relative to adjacent liver parenchyma of chronic medical renal disease. 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 LR #Anion Gap Metabolic acidosis Lactic acidosis- resolved Likely uremic with RAMYA With LR #RAMYA likely prerenal from reduced intake in setting of AMS/sepsis -FeNa-0.5%- prerenal LR @100mls/hr avoid nephrotoxins, renal dosing of meds renal consult Dr. Bennie Mojica, strict I/Os #Lactic acidosis resolved Could be related to seizures, R/O sepsis, #H/o right sided Hemorrhagic CVA s/p CT head #Complex partial seizure disorder Pt allergic SJS to keppra, phenytoin Pt on home oxcarbazine- Hold for now reported cross reactivity to carbamazepine with phenytoin #HTN Consider home lopressor to avoid withdrawal Pt could be tachycardic with sepsis and fever #HLD Not on statins at home Monitor #Elevated CPK Trend CPK Hydrate NPO [id number] heparin ICU Visit type - Emergency Visit Emergency Visit: Yes ED Registration Date: 01/22/19 Care time: The patient presented to the Emergency Department on the above date and was hospitalized for further evaluation of their emergent condition. - New Patient This patient is new to me today: Yes Date on this admission: 01/23/19 - Critical Care Critical Care patient: Yes Total Critical Care Time (in minutes): 38 Critical Care Statement: The care of this patient involved high complexity decision making to prevent further life threatening deterioration of the patient 's condition and/or to evaluate & treat vital organ system(s) failure or risk of failure. - Discharge Referral Referred to [facility] Med P.C.: No ATTENDING PHYSICIAN STATEMENT I saw and evaluated the patient. I reviewed the resident's note and discussed the case with the resident. I agree with the resident's findings and plan as documented. SUBJECTIVE: OBJECTIVE: ASSESSMENT AND PLAN:
[2019-01-23] MEDS: ALBUTEROL SO4 0.083% IH SOL 2.5 MG/3 ML VIAL.NEB. NEB SCH ×4 (09:15→21:30)
[2019-01-23] MEDS ORDERED: ALBUTEROL SO4 2.5/IPRATROPIUM 0.5 INH SOL 3 ML VIAL.NEB. NEB PRN (09:18)
[2019-01-23 09:19] LABS: PHOSPHOROUS 4.9 mg/dL (2.5-4.9)
[2019-01-23] MEDS ORDERED: ALBUTEROL SO4 0.083% IH SOL 2.5 MG/3 ML VIAL.NEB. NEB ONE (09:31)
--- NOTE | 2019-01-23 09:33 | PN ---
Teaching Attending Note Name of Resident: Karlee Díaz ATTENDING PHYSICIAN STATEMENT I saw and evaluated the patient. I reviewed the resident's note and discussed the case with the resident. I agree with the resident's findings and plan as documented with exceptions below. SUBJECTIVE: Patient seen and examined. oriented to self, lethargic, keeps falling to sleeping, tachypneic, unable to further assess her symptoms. OBJECTIVE: Vital Signs Period Temp Pulse Resp BP Sys/Lewis Pulse Ox Last 24 Hr 99.0 F-102.5 F 100-108 14-32 119-150/60-127 95-100 Intake & Output 01/20/19 01/21/19 01/22/19 01/23/19 23:59 23:59 23:59 23:59 Output Total 200 Balance -200 Weight 238 lb General: morbidly obese, tachypneic, lethargic, keeps falling back to sleep CVS:S1s2 regular Chest: poor effort, limited exam due to lack of co-operation, unable to appreciate rales or wheezing but very limited exam Abdomen:soft, obese, NT throughout Extremities: no edema Neuro: lethargic, repsonds to name, transiently opens eyes, falls back to sleep , PERRL, facial symmetry, moves left extremities more, withdraws to pain all over, unable to check for sensation, further exam limited Home Medications Medication Instructions Recorded Aspirin [ASA -] 81 mg PO DAILY 12/29/15 Metoprolol Tartrate [Lopressor -] 50 mg PO BID #60 tab 10/26/17 Nifedipine [Procardia Xl] 60 mg PO DAILY #30 tab 10/26/17 Oxcarbazepine 150 mg PO BID #60 tablet 10/26/17 Timolol 0.5% [Timoptic 0.5%] 1 drop OU DAILY #1 bottle 10/26/17 Acetaminophen [Tylenol .Regular 650 mg PO Q6H PRN tablet 11/03/18 Strength -] Albuterol 0.083% Nebulizer Emmy 1 amp NEB RQID amp 11/03/18 [Ventolin 0.083% Nebulizer Soln -] Nystatin/Triamcinolone Top Oin 1 applic TP BID applic 11/03/18 [Mycolog II -] Ofloxacin 0.3% Ophth Soln [Ocuflox 1 drop OU Q4HWA drops 11/03/18 -] Petrolatum - White [Vaseline -] 1 applic TP DAILY applic 11/03/18 Active Medications Acetaminophen (Ofirmev Injection -) 1,000 mg IVPB Q6H PRN PRN Reason: FEVER Albuterol Sulfate (Ventolin 0.083% Nebulizer Soln -) 1 amp NEB RQID JOSEF Albuterol/Ipratropium (Duoneb -) 1 amp NEB Q6H PRN PRN Reason: SHORTNESS OF BREATH Heparin Sodium (Porcine) (Heparin -) 5,000 unit SQ BID [facility] Last Admin: 01/22/19 22:40 Dose: 5,000 unit Sodium Chloride (Normal Saline -) 1,000 mls @ 125 mls/hr IV ASDIR [facility] Last Admin: 01/22/19 21:36 Dose: 125 mls/hr Timolol Maleate (Timoptic 0.5%) 1 drop OU DAILY [facility] Laboratory Results - last 24 hr 01/22/19 01/22/19 01/22/19 15:25 15:50 15:50 WBC 18.4 H RBC 5.37 H Hgb 13.0 Hct 40.2 MCV 74.8 L MCH 24.3 L MCHC 32.4 RDW 17.9 H Plt Count 193 D MPV 8.7 Absolute Neuts (auto) 17.3 H Neutrophils % 93.9 H D Neutrophils % (Manual) 83.0 H Band Neutrophils % 10.0 Lymphocytes % 1.9 L D Lymphocytes % (Manual) 2.0 L D Monocytes % 3.4 L Monocytes % (Manual) 4 Eosinophils % 0.4 D Eosinophils % (Manual) 1.0 Basophils % 0.4 Nucleated RBC % 0 Hypochromia 1+ Platelet Estimate Adequate PT with INR 15.80 H INR 1.34 H PTT (Actin FS) 25.3 Anticoagulation Therapy Puncture Site ABG pH ABG pCO2 at Pt Temp ABG pO2 at Pt Temp ABG HCO3 ABG O2 Sat (Measured) ABG O2 Content ABG Base Excess Danie Test VBG pH POC VBG pCO2 POC VBG pO2 VBG HCO3 VBG O2 Sat (Gill) VBG Base Excess O2 Delivery Device Oxygen Flow Rate Vent Mode Vent Rate Mechanical Rate Pressure Support Vent Sodium 141 Potassium 5.0 Chloride 106 Carbon Dioxide 20 L Anion Gap 15 BUN 62.7 H Creatinine 5.0 H Est GFR (CKD-EPI)AfAm 10.35 Est GFR (CKD-EPI)NonAf 8.93 Random Glucose 76 Lactic Acid Calcium 8.4 L Phosphorus Magnesium Total Bilirubin 0.3 Direct Bilirubin AST 56 H ALT 32 Alkaline Phosphatase 53 Creatine Kinase 1356 H Creatine Kinase Index 1.0 CK-MB (CK-2) 14.7 H Troponin I < 0.02 Total Protein 6.5 Albumin 3.1 L TSH Urine Color Urine Appearance Urine pH Ur Specific [employer] Urine Protein Urine Glucose (UA) Urine Ketones Urine Blood Urine Nitrite Urine Bilirubin Urine Urobilinogen Ur Leukocyte Esterase Urine WBC (Auto) Urine RBC (Auto) Urine Casts (Auto) U Epithel Cells (Auto) Urine Bacteria (Auto) 01/22/19 01/22/19 01/22/19 15:50 18:00 19:40 WBC RBC Hgb Hct MCV MCH MCHC RDW Plt Count MPV Absolute Neuts (auto) Neutrophils % Neutrophils % (Manual) Band Neutrophils % Lymphocytes % Lymphocytes % (Manual) Monocytes % Monocytes % (Manual) Eosinophils % Eosinophils % (Manual) Basophils % Nucleated RBC % Hypochromia Platelet Estimate PT with INR INR PTT (Actin FS) Anticoagulation Therapy Puncture Site ABG pH ABG pCO2 at Pt Temp ABG pO2 at Pt Temp ABG HCO3 ABG O2 Sat (Measured) ABG O2 Content ABG Base Excess Danie Test VBG pH 7.39 POC VBG pCO2 34.1 L POC VBG pO2 54.3 H VBG HCO3 20.1 L VBG O2 Sat (Gill) 85.5 H VBG Base Excess -3.7 L O2 Delivery Device Oxygen Flow Rate Vent Mode Vent Rate Mechanical Rate Pressure Support Vent Sodium Potassium Chloride Carbon Dioxide Anion Gap BUN Creatinine Est GFR (CKD-EPI)AfAm Est GFR (CKD-EPI)NonAf Random Glucose Lactic Acid 4.0 H* Calcium Phosphorus Magnesium Total Bilirubin Direct Bilirubin AST ALT Alkaline Phosphatase Creatine Kinase Creatine Kinase Index CK-MB (CK-2) Troponin I Total Protein Albumin TSH Urine Color Dk yellow Urine Appearance Turbid Urine pH 5.0 D Ur Specific [employer] 1.019 Urine Protein 2+ H Urine Glucose (UA) Negative Urine Ketones Trace H Urine Blood 2+ H Urine Nitrite Negative Urine Bilirubin Negative Urine Urobilinogen 1.0 Ur Leukocyte Esterase 2+ H Urine WBC (Auto) 53 Urine RBC (Auto) 5.5 Urine Casts (Auto) 73 U Epithel Cells (Auto) 7.7 Urine Bacteria (Auto) 18.0 01/22/19 01/23/19 01/23/19 19:40 06:00 06:25 WBC 13.2 H RBC 5.01 Hgb 12.3 Hct 37.7 MCV 75.3 L MCH 24.6 L MCHC 32.7 RDW 17.8 H Plt Count 150 D MPV 9.1 Absolute Neuts (auto) Neutrophils % Neutrophils % (Manual) Band Neutrophils % Lymphocytes % Lymphocytes % (Manual) Monocytes % Monocytes % (Manual) Eosinophils % Eosinophils % (Manual) Basophils % Nucleated RBC % Hypochromia Platelet Estimate PT with INR INR PTT (Actin FS) Anticoagulation Therapy No Result Required. Puncture Site Right radial ABG pH 7.40 ABG pCO2 at Pt Temp 29.8 L ABG pO2 at Pt Temp 174 H ABG HCO3 17.9 L ABG O2 Sat (Measured) 99.4 H ABG O2 Content 17.0 ABG Base Excess -5.4 L Danie Test Positive VBG pH POC VBG pCO2 POC VBG pO2 VBG HCO3 VBG O2 Sat (Gill) VBG Base Excess O2 Delivery Device Nrb mask Oxygen Flow Rate 100% Vent Mode No Result Required. Vent Rate No Result Required. Mechanical Rate No Result Required. Pressure Support Vent No Result Required. Sodium Potassium Chloride Carbon Dioxide Anion Gap BUN Creatinine Est GFR (CKD-EPI)AfAm Est GFR (CKD-EPI)NonAf Random Glucose Lactic Acid 1.8 Calcium Phosphorus Magnesium Total Bilirubin Direct Bilirubin AST ALT Alkaline Phosphatase Creatine Kinase Creatine Kinase Index CK-MB (CK-2) Troponin I Total Protein Albumin TSH Urine Color Urine Appearance Urine pH Ur Specific [employer] Urine Protein Urine Glucose (UA) Urine Ketones Urine Blood Urine Nitrite Urine Bilirubin Urine Urobilinogen Ur Leukocyte Esterase Urine WBC (Auto) Urine RBC (Auto) Urine Casts (Auto) U Epithel Cells (Auto) Urine Bacteria (Auto) 01/23/19 06:25 WBC RBC Hgb Hct MCV MCH MCHC RDW Plt Count MPV Absolute Neuts (auto) Neutrophils % Neutrophils % (Manual) Band Neutrophils % Lymphocytes % Lymphocytes % (Manual) Monocytes % Monocytes % (Manual) Eosinophils % Eosinophils % (Manual) Basophils % Nucleated RBC % Hypochromia Platelet Estimate PT with INR INR PTT (Actin FS) Anticoagulation Therapy Puncture Site ABG pH ABG pCO2 at Pt Temp ABG pO2 at Pt Temp ABG HCO3 ABG O2 Sat (Measured) ABG O2 Content ABG Base Excess Danie Test VBG pH POC VBG pCO2 POC VBG pO2 VBG HCO3 VBG O2 Sat (Gill) VBG Base Excess O2 Delivery Device Oxygen Flow Rate Vent Mode Vent Rate Mechanical Rate Pressure Support Vent Sodium 141 Potassium 4.1 Chloride 107 Carbon Dioxide 19 L Anion Gap 14 BUN 75.6 H Creatinine 5.4 H Est GFR (CKD-EPI)AfAm 9.43 Est GFR (CKD-EPI)NonAf 8.13 Random Glucose 95 Lactic Acid Calcium 7.8 L Phosphorus 4.9 Magnesium 2.2 Total Bilirubin 0.5 Direct Bilirubin 0.2 AST 63 H ALT 44 Alkaline Phosphatase 48 Creatine Kinase Creatine Kinase Index CK-MB (CK-2) Troponin I Total Protein 5.8 L Albumin 2.8 L TSH 0.90 Urine Color Urine Appearance Urine pH Ur Specific [employer] Urine Protein Urine Glucose (UA) Urine Ketones Urine Blood Urine Nitrite Urine Bilirubin Urine Urobilinogen Ur Leukocyte Esterase Urine WBC (Auto) Urine RBC (Auto) Urine Casts (Auto) U Epithel Cells (Auto) Urine Bacteria (Auto) CT brain, CXR and renal US results reviewed ASSESSMENT AND PLAN: 58 yof with PMhx of R haemorrhagic stroke, complex partial seizure disorder due to the same, HTN, HLD, prolonged admission in 11/2018 with AMS, seizures, fevers , RAMYA admitted with AMS, fevers, RAMYA, now with tachypnea -AMS, toxic metabolic encephalopathy from infection/RAMYA vs seizures vs post ictal -fevers, ?seizures vs UTI vs aspiration, low suspicion for meningitis/ encephalitis based on prior similar presentations -RAMYA, ?hypovolumic vs sepsis medicated, no evidence of obstruction -Acute hypoxic respiratory distress -Lactic acidosis, seizure vs sepsis -H/o right sided Haemorrhagic CVA -Complex partial seizure disorder -HTN -HLD Plan: Patient seen in ED, lethargic, tachypneic upto 40s, on NRB. CXR/ABG noted. Bipap. Hold IVF for now. Hold off on lasix pending renal input. Patient well known to me from previous admissions. Has had similar presentation with AMS, hallucinations, fevers, was on broad spectrum antibiotics and IR guided LP and antibiotics were eventually tapered off. Also had MRI brain that was negative for concerns. EEG that was abnormal but with no epileptiform activity. During the admission, had recurrent fevers with AMS that improved after emperic zosyn but no clear etiology except for suspected aspiration was noted. Given similar presentations, with essentially negative neurological workup, unclear if her Fevers/WBC are related to seizures vs aspiration rather than infectious neurological process, which seems less likely. s/p broad spectrum on admission. Follow up cultures and urine studies. Discussed with Dr. Meadows, will follow up on additional recs. Neurology input noted, Repeat EEG. Unclear if patient would beneift from continuous EEG monitoring. Will defer to neurology. H/o Regino nelson's syndrome with dilantin. On tegretol at home, currently NPO given AMS and respiratory concerns. Discuss with neurology for alternative options. Seizure precautions. Renal US noted, renal consult Dr. Avery, follow up additional recs. [place], strict I/Os, avoid nephrotoxins, renal dosing of meds. DVTPPX heparin Dispo tachypneic, altered, needs bipap, worsening renal function. Patient accepted to ICU for closer monitoring Discussed with ED RN. Total critical care time spent 55 min.
--- NOTE | 2019-01-23 10:16 | CONSULT ---
Consult - text type - Consultation Consultation Note: Neurology CHIEF COMPLAINT: AMS, fever PCP:Dr. Roger HISTORY OF PRESENT ILLNESS: 58yo woman with a PMH of hemorrhagic stroke w/ residual left-sided weakness, HTN , HLD, complex partial seizures who presented with AMS, fever, and shaking on day of admission. Per notes, the sister reported that the patient was in her usual state of health when she went with the sister and mother the day prior to admission to [facility] a SNF; on the way home, she reported that she felt nauseated with an episode of vomiting. Otherwise, she has had no complaints recently. The day of admission, her sister noticed that the pt was "lethargic" and shaking as well as poorly responsive. She was unable to complete a conversation. The sister helped give her medications that morning but was concerned that she was acting strangely. Ct head was completed without acute changes. Patient found to have fever on admission with RAMYA and tachypnea, facemask in place. Discussed with hospitalist this AM in terms of further workup and ordered EEG to evaluate for any abnormal blood form activity. The patient was on Tegretol but is not currently able to take by mouth. Reportedly with allergies to Keppra and Dilantin, therefore recommended Depakote, IV formulation 750 mg twice a day. Patient remains altered and seen in the emergency department, confused and with wrist restraints. Unclear if mental status due to underlying acute kidney injury versus infection versus sequelae of possible seizure. Patient being sent to ICU for critical care management and observation. PAST MEDICAL HISTORY: hemorrhagic stroke w/ residual left-sided weakness, HTN, HLD, complex partial seizures PAST SURGICAL HISTORY: no Social History: unknown Smoking: Alcohol: Drugs: Family History: unknown Allergies levetiracetam [From Keppra] Adverse Reaction (Verified 01/22/19 14:25) phenytoin sodium [From Dilantin] Adverse Reaction (Verified 01/22/19 14:25) phenytoin sodium extended [From Dilantin] Adverse Reaction (Verified 01/22/19 14 :25) HOME MEDICATIONS: Home Medications Medication Instructions Recorded Aspirin [ASA -] 81 mg PO DAILY 12/29/15 Metoprolol Tartrate [Lopressor -] 50 mg PO BID #60 tab 10/26/17 Nifedipine [Procardia Xl] 60 mg PO DAILY #30 tab 10/26/17 Oxcarbazepine 150 mg PO BID #60 tablet 10/26/17 Timolol 0.5% [Timoptic 0.5%] 1 drop OU DAILY #1 bottle 10/26/17 Acetaminophen [Tylenol .Regular 650 mg PO Q6H PRN tablet 11/03/18 Strength -] Albuterol 0.083% Nebulizer Emmy 1 amp NEB RQID amp 11/03/18 [Ventolin 0.083% Nebulizer Soln -] Nystatin/Triamcinolone Top Oin 1 applic TP BID applic 11/03/18 [Mycolog II -] Ofloxacin 0.3% Ophth Soln [Ocuflox 1 drop OU Q4HWA drops 11/03/18 -] Petrolatum - White [Vaseline -] 1 applic TP DAILY applic 11/03/18 REVIEW OF SYSTEMS- unable to obtain due to altered mental status PHYSICAL EXAMINATION Vital Signs Period Temp Pulse Resp BP Sys/Lewis Pulse Ox Last 24 Hr 99.0 F-102.5 F 100-108 14-32 119-150/60-127 95-100 GENERAL:awake, obtunded, not cooperative,confused HEAD: Normal with no signs of trauma. EYES: Pupils equal, round and reactive to light, extraocular movements intact, sclera anicteric, conjunctiva clear. No lid lag. EARS, NOSE, THROAT: Ears normal, nares patent, oropharynx clear without exudates. Moist mucous membranes. NECK: Normal range of motion, supple without lymphadenopathy, JVD, or masses. LUNGS: Breath sounds equal, clear to auscultation bilaterally. No wheezes, and no crackles. No accessory muscle use. HEART: Regular rate and rhythm, normal S1 and S2 without murmur, rub or gallop. ABDOMEN: Soft, nontender, not distended, normoactive bowel sounds, no guarding, no rebound,obese MUSCULOSKELETAL: Normal range of motion at all joints. No bony deformities or tenderness. No CVA tenderness. UPPER EXTREMITIES: 2+ pulses, warm, well-perfused. No cyanosis. No clubbing. No peripheral edema. LOWER EXTREMITIES: left leg IO line in place NEUROLOGICAL: no neck stiffness, ams, moves all extremities equally, sensory intact to tactile stimulation SKIN: Warm, dry, normal turgor, no rashes or lesions noted, normal capillary refill. Laboratory Results - last 24 hr 0701/22/19 01/22/19 15:25 15:50 15:50 WBC 18.4 H RBC 5.37 H Hgb 13.0 Hct 40.2 MCV 74.8 L MCH 24.3 L MCHC 32.4 RDW 17.9 H Plt Count 193 D MPV 8.7 Absolute Neuts (auto) 17.3 H Neutrophils % 93.9 H D Neutrophils % (Manual) 83.0 H Band Neutrophils % 10.0 Lymphocytes % 1.9 L D Lymphocytes % (Manual) 2.0 L D Monocytes % 3.4 L Monocytes % (Manual) 4 Eosinophils % 0.4 D Eosinophils % (Manual) 1.0 Basophils % 0.4 Nucleated RBC % 0 Hypochromia 1+ Platelet Estimate Adequate PT with INR 15.80 H INR 1.34 H PTT (Actin FS) 25.3 VBG pH POC VBG pCO2 POC VBG pO2 VBG HCO3 VBG O2 Sat (Gill) VBG Base Excess Sodium 141 Potassium 5.0 Chloride 106 Carbon Dioxide 20 L Anion Gap 15 BUN 62.7 H Creatinine 5.0 H Est GFR (CKD-EPI)AfAm 10.35 Est GFR (CKD-EPI)NonAf 8.93 Random Glucose 76 Lactic Acid Calcium 8.4 L Total Bilirubin 0.3 AST 56 H ALT 32 Alkaline Phosphatase 53 Troponin I < 0.02 Total Protein 6.5 Albumin 3.1 L Urine Color Urine Appearance Urine pH Ur Specific [employer] Urine Protein Urine Glucose (UA) Urine Ketones Urine Blood Urine Nitrite Urine Bilirubin Urine Urobilinogen Ur Leukocyte Esterase Urine WBC (Auto) Urine RBC (Auto) Urine Casts (Auto) U Epithel Cells (Auto) Urine Bacteria (Auto) 01/22/19 01/22/19 01/22/19 15:50 18:00 19:40 WBC RBC Hgb Hct MCV MCH MCHC RDW Plt Count MPV Absolute Neuts (auto) Neutrophils % Neutrophils % (Manual) Band Neutrophils % Lymphocytes % Lymphocytes % (Manual) Monocytes % Monocytes % (Manual) Eosinophils % Eosinophils % (Manual) Basophils % Nucleated RBC % Hypochromia Platelet Estimate PT with INR INR PTT (Actin FS) VBG pH 7.39 POC VBG pCO2 34.1 L POC VBG pO2 54.3 H VBG HCO3 20.1 L VBG O2 Sat (Gill) 85.5 H VBG Base Excess -3.7 L Sodium Potassium Chloride Carbon Dioxide Anion Gap BUN Creatinine Est GFR (CKD-EPI)AfAm Est GFR (CKD-EPI)NonAf Random Glucose Lactic Acid 4.0 H* Calcium Total Bilirubin AST ALT Alkaline Phosphatase Troponin I Total Protein Albumin Urine Color Dk yellow Urine Appearance Turbid Urine pH 5.0 D Ur Specific [employer] 1.019 Urine Protein 2+ H Urine Glucose (UA) Negative Urine Ketones Trace H Urine Blood 2+ H Urine Nitrite Negative Urine Bilirubin Negative Urine Urobilinogen 1.0 Ur Leukocyte Esterase 2+ H Urine WBC (Auto) 53 Urine RBC (Auto) 5.5 Urine Casts (Auto) 73 U Epithel Cells (Auto) 7.7 Urine Bacteria (Auto) 18.0 01/22/19 19:40 WBC RBC Hgb Hct MCV MCH MCHC RDW Plt Count MPV Absolute Neuts (auto) Neutrophils % Neutrophils % (Manual) Band Neutrophils % Lymphocytes % Lymphocytes % (Manual) Monocytes % Monocytes % (Manual) Eosinophils % Eosinophils % (Manual) Basophils % Nucleated RBC % Hypochromia Platelet Estimate PT with INR INR PTT (Actin FS) VBG pH POC VBG pCO2 POC VBG pO2 VBG HCO3 VBG O2 Sat (Gill) VBG Base Excess Sodium Potassium Chloride Carbon Dioxide Anion Gap BUN Creatinine Est GFR (CKD-EPI)AfAm Est GFR (CKD-EPI)NonAf Random Glucose Lactic Acid 1.8 Calcium Total Bilirubin AST ALT Alkaline Phosphatase Troponin I Total Protein Albumin Urine Color Urine Appearance Urine pH Ur Specific [employer] Urine Protein Urine Glucose (UA) Urine Ketones Urine Blood Urine Nitrite Urine Bilirubin Urine Urobilinogen Ur Leukocyte Esterase Urine WBC (Auto) Urine RBC (Auto) Urine Casts (Auto) U Epithel Cells (Auto) Urine Bacteria (Auto) ASSESSMENT/PLAN: 58yo woman with a PMH of hemorrhagic stroke w/ residual left-sided weakness, HTN , HLD, complex partial seizures who presented with AMS, fever, and shaking on day of admission. Per notes, the sister reported that the patient was in her usual state of health when she went with the sister and mother the day prior to admission to tour a SNF; on the way home, she reported that she felt nauseated with an episode of vomiting. Otherwise, she has had no complaints recently. The day of admission, her sister noticed that the pt was "lethargic" and shaking as well as poorly responsive. She was unable to complete a conversation. The sister helped give her medications that morning but was concerned that she was acting strangely. Ct head was completed without acute changes. Patient found to have fever on admission with RAMYA and tachypnea, facemask in place. Discussed with hospitalist this AM in terms of further workup and ordered EEG to evaluate for any abnormal blood form activity. The patient was on Tegretol but is not currently able to take by mouth. Reportedly with allergies to Keppra and Dilantin, therefore recommended Depakote, IV formulation 750 mg twice a day. Patient remains altered and seen in the emergency department, confused and with wrist restraints. Unclear if mental status due to underlying acute kidney injury versus infection versus sequelae of possible seizure. Patient being sent to ICU for critical care management and observation. In agreement with this. Continue sepsis work up and evaluation, ABx per ID, follow up ID rec'd. Maintain adequate hydration. Monitor electrolytes, correction of RAMYA. Psych eval /input recommended on medication. MRI brain when able. Monitor BP, maintain normotensive range.
[2019-01-23 10:22] LABS: COCAINE, UR NEGATIVE ng/ml (CUTOFF=300); METHADONE, UR NEGATIVE ng/ml (CUTOFF=300); OPIATES, URI NEGATIVE ng/ml (CUTOFF=300); PHENCYCLIDINE,URINE NEGATIVE ng/ml (CUTOFF=25); URINE AMPHETAMINES NEGATIVE ng/ml (CUTOFF=500); URINE BARBITURATES NEGATIVE ng/ml (CUTOFF=200); URINE BENZODIAZEPINES NEGATIVE ng/ml (CUTOFF=200)
[2019-01-23] MEDS ORDERED: RAPID SEQUENCE INTUBATION KIT NR ONE (10:50)
--- NOTE | 2019-01-23 10:55 | CON.ID ---
Consult Consult Specialty:: infectious disease Referred by:: hospitalist Reason for Consultation:: fever, confusion - History of Present Illness Chief Complaint: fever, confusion History of Present Illness: 58 yo female with PMH of seizure disorder, s/p prolonged admission 10/13 t 11/03 for fever and confusion- workup included head ct, LP, MRI and EEG on Wednesday afternoon patient developed nuasea and fatigue with vomiting times two the next day she had fever and lethargy and confusion with hallucinations she was brought to ED by her sister noted to have fever 102.5 with agitation she had labs done and was noted to be in ARF with leukocytosis ua with pyuria she was given vancomycin, zosyn, acyclovir, ceftriaxone, and ampicillin she was sedated this am she is responsive to name and able to answer questions she is following simple commands she was noted to have skin with erythema, left buttock with denuded skin small umbilical area with denuded skin and several small lesions scattered on arms she has an IO in right tibia olivas is in place she is afebrile this am at baseline oriented times 2 VRE urine culture last admission she has had episodes of confusion with fevers during her last admission to [facility] in September - Past Medical History HEALTH PROGRAM SPECIALIST: Yes: CVA (with left sided weakness), Seizure Cardio/Vascular: Yes: HTN, Hyperlipdemia Dermatology: Yes: 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) - Alcohol/Substance Use Hx Alcohol Use: No - Smoking History Smoking history: Former smoker Have you smoked in the past 12 months: No - Social History Usual Living Arrangement: Other (with sister) ADL: Family Assistance History of Recent Travel: No Home Medications - Allergies Allergies/Adverse Reactions: Allergies Allergy/AdvReac Type Severity Reaction Status Date / Time piperacillin [From Zosyn] Allergy Severe Verified 01/23/19 10:40 tazobactam [From Zosyn] Allergy Severe Verified 01/23/19 10:40 levetiracetam [From Keppra] AdvReac Verified 01/22/19 14:25 phenytoin sodium AdvReac Verified 01/22/19 14:25 [From Dilantin] phenytoin sodium extended AdvReac Verified 01/22/19 14:25 [From Dilantin] - Home Medications Home Medications: Ambulatory Orders Aspirin [ASA -] 81 mg PO DAILY 12/29/15 Metoprolol Tartrate [Lopressor -] 50 mg PO BID #60 tab 10/26/17 Nifedipine [Procardia Xl] 60 mg PO DAILY #30 tab 10/26/17 Oxcarbazepine 150 mg PO BID #60 tablet 10/26/17 Timolol 0.5% [Timoptic 0.5%] 1 drop OU DAILY #1 bottle 10/26/17 Acetaminophen [Tylenol .Regular Strength -] 650 mg PO Q6H PRN tablet 11/03/18 Albuterol 0.083% Nebulizer Emmy [Ventolin 0.083% Nebulizer Soln -] 1 amp NEB RQID amp 11/03/18 Nystatin/Triamcinolone Top Oin [Mycolog II -] 1 applic TP BID applic 11/03/18 Ofloxacin 0.3% Ophth Soln [Ocuflox -] 1 drop OU Q4HWA drops 11/03/18 Petrolatum - White [Vaseline -] 1 applic TP DAILY applic 11/03/18 Family Disease History - Family Disease History Family History: Unable to Obtain Review of Systems - Review of Systems Constitutional: reports: Chills, Fever, Lethargy Cardiovascular: reports: No Symptoms Respiratory: reports: No Symptoms Gastrointestinal: reports: No Symptoms Physical Exam Vital Signs: Vital Signs Temperature 99.0 F 01/23/19 05:40 Pulse Rate 103 H 01/23/19 10:36 Respiratory Rate 32 H 01/23/19 05:40 Blood Pressure 119/61 01/23/19 05:40 O2 Sat by Pulse Oximetry (%) 99 01/23/19 10:36 Eyes: Yes: Conjunctiva Clear HENT: Yes: Atraumatic, Normocephalic, Other (no oral leions) Neck: Yes: Supple, Trachea Midline Cardiovascular: Yes: Regular Rate and Rhythm Respiratory: Yes: Regular, CTA Bilaterally Gastrointestinal: Yes: Normal Bowel Sounds, Soft ...Rectal Exam: Yes: Deferred Renal/: Yes: Olivas Present Musculoskeletal: Yes: WNL Extremities: Yes: WNL Edema: No Integumentary: Yes: Erythema, Other (left thigh, near umbilicus- denuded skin blisters left had, left elbow, left buttock and thigh) Labs: CBC, BMP 01/23/19 06:25 01/23/19 06:25 cultures pending Imaging - Results Chest X-ray: Report Reviewed, Image Reviewed Cat Scan: Report Reviewed (unchanged, chronic right parietal infarct, white matter gliosis- unchanged from prior admisson) Ultrasound: Report Reviewed (no hydronephrosis) Problem List - Problems (1) Fever Code(s): R50.9 - FEVER, UNSPECIFIED Qualifiers: Fever type: unspecified Qualified Code(s): R50.9 - Fever, unspecified (2) UTI (urinary tract infection) Code(s): N39.0 - URINARY TRACT INFECTION, SITE NOT SPECIFIED (3) Skin rash Code(s): R21 - RASH AND OTHER NONSPECIFIC SKIN ERUPTION (4) VRE (vancomycin resistant enterococcus) culture positive Code(s): Z22.39 - CARRIER OF OTHER SPECIFIED BACTERIAL DISEASES Assessment/Plan daptomycin and azactam while awaiting cultures -suspect urinary source, doubt HEALTH PROGRAM SPECIALIST source - she has history of confusion with fevers in the past, neck is supple withut signs of meningitis derm evaluation for blistering skin rash- history of jemma Snadeep, ?viviana sign-?Karmen consider transfer to tertiary care center d/w plow shaker d/w hospitalist contact isolation for VRE over 45 minutes spent in the care of this critically ill ICU patient
--- NOTE | 2019-01-23 11:14 | PROC ---
<Juan Giles - Last Filed: 01/23/19 11:15> Intubation - Intubation Reason for Intubation: Respiratory Insufficiency, Airway Protection Intubation Method: orotracheal Blade used: Glidescope Tube Size (cm): 7.5 Tube position @ lip (cm): 22 Tube position confirmed by: Direct visualization, CO2 detector, Chest x-ray, Breath sounds Breath Sounds after Intubation: equal Post Intubation Xray: Yes (ordered) <Alvino Hernandez MD - Last Filed: 01/23/19 11:29> Procedure Note Procedure: I supervised and was present during the entire procedure. Alvino Hernandez MD
[2019-01-23] MEDS: PROPOFOL 1,000,000 MCG/100 ML VIAL IVPB SCH ×4 (11:15→23:17)
--- NOTE | 2019-01-23 11:18 | EKG ---
Test Reason : Blood Pressure : / mmHG Vent. Rate : 103 BPM Atrial Rate : 103 BPM P-R Int : 150 ms QRS Dur : 082 ms QT Int : 360 ms P-R-T Axes : 055 027 071 degrees QTc Int : 471 ms POOR DATA QUALITY, INTERPRETATION MAY BE ADVERSELY AFFECTED SINUS TACHYCARDIA POSSIBLE LEFT ATRIAL ENLARGEMENT BORDERLINE ECG WHEN COMPARED WITH ECG OF 09-DEC-2018 18:14, NO SIGNIFICANT CHANGE WAS FOUND Confirmed by XIANG GALARZA MD ([id number]) on 01/23/2019 11:17:46 AM Referred By: Confirmed By:XIANG GALARZA MD
[2019-01-23] MEDS ORDERED: SUCCINYLCHOLINE CHLORIDE 200 MG/10 ML VIAL IVPUSH ONE (11:26)
[2019-01-23] MEDS ORDERED: ETOMIDATE 40 MG/20 ML VIAL IVPUSH ONE (11:26)
[2019-01-23] MEDS ORDERED: INFUS IV ONE (11:30)
[2019-01-23] MEDS ORDERED: LACTATED RINGERS SOLUTION 1,000 ML/1,000 ML INFUS.BAG IV SCH (11:30)
[2019-01-23] MEDS ORDERED: LACTATED RINGERS IV ONE (11:30)
--- NOTE | 2019-01-23 11:38 | PN ---
Teaching Attending Note Name of Resident: Rubio Gallagher ATTENDING PHYSICIAN STATEMENT I saw and evaluated the patient. I reviewed the resident's note and discussed the case with the resident. I agree with the resident's findings and plan as documented. SUBJECTIVE: Pt seen and examined in the ICU. 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 Given IVF and antibiotics in the ER, placed on BiPAP for respiratory distress and intraosseus access placed. Upon arrival to ICU, pt tachypneic with labored respirations, agitated with waxing/waning mentation, subsequently intubated. OBJECTIVE: Vital Signs Period Temp Pulse Resp BP Sys/Lewis Pulse Ox Last 24 Hr 99.0 F-102.5 F 100-108 14-32 119-150/60-127 95-100 Intake & Output 01/20/19 01/21/19 01/22/19 01/23/19 23:59 23:59 23:59 23:59 Output Total 200 Balance -200 Weight 107.955 kg Gen: intubated, sedated Heart: RRR Lung: decreased breath sounds at the bases Abd: soft, nontender Ext: sloughing, friable skin, diffuse erythema CBC, BMP 01/23/19 06:25 01/23/19 06:25 Active Medications Acetaminophen (Ofirmev Injection -) 1,000 mg IVPB Q6H PRN PRN Reason: FEVER Albuterol Sulfate (Ventolin 0.083% Nebulizer Soln -) 1 amp NEB RQID [facility] Last Admin: 01/23/19 09:15 Dose: 1 amp Albuterol/Ipratropium (Duoneb -) 1 amp NEB Q6H PRN PRN Reason: SHORTNESS OF BREATH Aztreonam (Azactam (Restricted To Id) -) 1 gm IVPB Q12H [facility]; Protocol Heparin Sodium (Porcine) (Heparin -) 5,000 unit SQ BID JOSEF Last Admin: 01/22/19 22:40 Dose: 5,000 unit Sodium Chloride (Normal Saline -) 1,000 mls @ 125 mls/hr IV ASDIR [facility] Last Admin: 01/22/19 21:36 Dose: 125 mls/hr Propofol (Diprivan -) 1,000,000 mcg in 100 mls @ 3.239 mls/hr IVPB TITR JOSEF; Protocol Lactated Ringer's (Lactated Ringers Solution) 1,000 ml in 1,000 mls @ 100 mls/ hr IV ASDIR JOSEF Lactated Ringer's (Lactated Ringers Solution) 1,000 ml in 250 mls @ 1,000 mls/ hr IV ONCE ONE Stop: 01/23/19 11:44 Daptomycin 600 mg/ Sodium (Chloride) 50 mls @ 50 mls/hr IVPB Q48H JOSEF; Protocol Timolol Maleate (Timoptic 0.5%) 1 drop OU DAILY JOSEF ASSESSMENT AND PLAN: Acute Respiratory Failure r/o Martinez Sandeep Syndrome - ?Zosyn UTI Severe Sepsis Acute Kidney Injury Rhabdomyolysis Seizure Disorder h/o CVA - pt intubated - antibiotics per ID - f/u cultures - aggressive IVF - monitor urine output, creatinine - trend CPK - sedate for vent synchrony - wound care - monitor area of sloughing, transfer to burn unit if sloughing worse - DVT prophylaxis - ICU monitoring critical care time spent in reviewing chart, evaluating patient and formulating plan 35 min
[2019-01-23] MEDS ORDERED: AZTREONAM 1 GM in SODIUM CHLORIDE 50 ML IVPB SCH (11:45)
[2019-01-23] MEDS ORDERED: AZTREONAM 1 GM VIAL (RESTRICTED TO ID) IVPB SCH (11:45)
[2019-01-23] MEDS ORDERED: DAPTOMYCIN 600 MG in SODIUM CHLORIDE 100 ML IVPB SCH ×2 (12:00→14:00)
[2019-01-23] MEDS ORDERED: AZTREONAM 1 GM in DEXTROSE 5%-WATER - 50 ML IVPB SCH (12:00)
--- NOTE | 2019-01-23 12:00 | CONSULT ---
Consult - text type - Consultation Consultation Note: Renal consult for RAMYA This is a 58 year old woman with history of hemorrhagic CVA, seizure disorder, hypertension, hyperlipidemia who presented to the ED with disorientation and found to have RAMYA. Pt seen and examined at the bedside. Intubated for airway protection this am. Had fevers on presentation. currently sedated. Making urine via Moj[place]. Unable to obtain further history given clinical status. PMhx: as above Allergies: NKDA Family hx: NC Social hx: No T/A/D ROS: as per HPI, all other pertinent ros negative Home Medications Medication Instructions Recorded Aspirin [ASA -] 81 mg PO DAILY 12/29/15 Metoprolol Tartrate [Lopressor -] 50 mg PO BID #60 tab 10/26/17 Nifedipine [Procardia Xl] 60 mg PO DAILY #30 tab 10/26/17 Oxcarbazepine 150 mg PO BID #60 tablet 10/26/17 Timolol 0.5% [Timoptic 0.5%] 1 drop OU DAILY #1 bottle 10/26/17 Acetaminophen [Tylenol .Regular 650 mg PO Q6H PRN tablet 11/03/18 Strength -] Albuterol 0.083% Nebulizer Emmy 1 amp NEB RQID amp 11/03/18 [Ventolin 0.083% Nebulizer Soln -] Nystatin/Triamcinolone Top Oin 1 applic TP BID applic 11/03/18 [Mycolog II -] Ofloxacin 0.3% Ophth Soln [Ocuflox 1 drop OU Q4HWA drops 11/03/18 -] Petrolatum - White [Vaseline -] 1 applic TP DAILY applic 11/03/18 Vital Signs Temperature 100.1 F H 01/23/19 10:15 Pulse Rate 103 H 01/23/19 10:36 Respiratory Rate 24 H 01/23/19 10:15 Blood Pressure 95/79 01/23/19 10:15 O2 Sat by Pulse Oximetry (%) 99 01/23/19 10:36 Intake & Output 01/20/19 01/21/19 01/22/19 01/23/19 23:59 23:59 23:59 23:59 Output Total 200 Balance -200 Weight 107.955 kg 102.3 kg Intubated and sedated ET tube in place neck supple RRR, NO M/R Dec BS Obese, NT/ND no LE edema skin peeling on left posterior thigh CBC, BMP 01/23/19 06:25 01/23/19 06:25 Laboratory Tests 01/22/19 01/23/19 18:00 06:25 Calcium 7.8 L Phosphorus 4.9 Magnesium 2.2 Albumin 2.8 L Urine Protein 2+ H Urine Ketones Trace H Urine Blood 2+ H Ur Leukocyte Esterase 2+ H Urine WBC (Auto) 53 Urine RBC (Auto) 5.5 Urine Casts (Auto) 73 U Epithel Cells (Auto) 7.7 Current Medications Acetaminophen (Ofirmev Injection -) 1,000 mg IVPB Q6H PRN PRN Reason: FEVER Albuterol Sulfate (Ventolin 0.083% Nebulizer Soln -) 1 amp NEB RQID JOSEF Last Admin: 01/23/19 17:05 Dose: 1 amp Albuterol/Ipratropium (Duoneb -) 1 amp NEB Q6H PRN PRN Reason: SHORTNESS OF BREATH Heparin Sodium (Porcine) (Heparin -) 5,000 unit SQ BID JOSEF Last Admin: 01/23/19 13:51 Dose: 5,000 unit Propofol (Diprivan -) 1,000,000 mcg in 100 mls @ 3.239 mls/hr IVPB TITR JOSEF; Protocol Last Admin: 01/23/19 11:15 Dose: 5 mcg/kg/min, 3.239 mls/hr Lactated Ringer's (Lactated Ringers Solution) 1,000 ml in 1,000 mls @ 100 mls/ hr IV ASDIR JOSEF Last Admin: 01/23/19 10:40 Dose: 100 mls/hr Daptomycin 600 mg/ Sodium (Chloride) 100 mls @ 200 mls/hr IVPB Q48H JOSEF; Protocol Last Admin: 01/23/19 15:33 Dose: 200 mls/hr Aztreonam 1 gm/ Dextrose 50 mls @ 100 mls/hr IVPB BID JOSEF Last Admin: 01/23/19 13:54 Dose: 100 mls/hr Fentanyl 500 mcg/ Dextrose 100 mls @ 5 mls/hr IVPB TITR JOSEF; Protocol Last Admin: 01/23/19 13:52 Dose: 25 mcg/hr, 5 mls/hr Timolol Maleate (Timoptic 0.5%) 1 drop OU DAILY JOSEF Last Admin: 01/23/19 13:55 Dose: 1 drop 58 year old woman with history of hemorragic CVA, seziure disorder, hypertension , hyperlipidemia who presented to the ED with disoreintatoin and found to have RAMYA. #RAMYA secondary to: intravascular volume depletion vs. ATN vs. ATN vs. acute GN #Altered mental status #Fever #Leukocytoiss #Suspected UTI. #Lactic acidosis #Elevated CK #Lactic acidosis/metabolic acidosis no emergent indication for ACCOUNT ASSISTANT pt is non-oliguric presently check urine studies for FeNa and UPCR Continue isotonic fluids keep MAP > 65 Vent support as per ICU Abx as per ID f/u cultures less likely that uremia is cause of mental status change trend serum bicabonate check CK levels while on daptomycin Varun Avery DO
[2019-01-23 12:25] LABS: ARTERIAL BLD GAS O2 SATURATION 92.4 % (95-98); ARTERIAL BLOOD GAS BASE EXCESS -6.3 meq/l (-2-2); ARTERIAL BLOOD GAS PCO2 32.7 mmHg (35-45); ARTERIAL BLOOD GAS pH 7.36 (7.35-7.45)
--- NOTE | 2019-01-23 12:29 | CONSULT ---
Consultation: REQUESTING PROVIDER: Dr. Bai CONSULT REQUEST: We have been asked to medically evaluate this patient for the ICU. HISTORY OF PRESENT ILLNESS: Pt. is a 58 y.o. F w/ PMHx. 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 Pt. was noted to be tachypneic to the 40s even while on non-rebreather and on Bipap. Pt. transferred to ICU where decision made to intubate because of increased work of breathing. Pt. has IO access in R. Tibia, however decision was made to emergently place RIJ for better access. Pt. was notably admitted in November for a similar presentation of AMS secondary to sepsis at that time. Pt. during that course had EEG, MRI and LP without any elucidation of the cause of altered mental status(most likely aspiration pneumonia but was growing VRE in urine). Pt. was treated with IV Zosyn and returned to her baseline mental status of Alert and Oriented to name and place. Currently Pt. is intubated and sedated to protect air way and unable to answer questions. Pt. was assessed briefly before intubation and denied any pain but was lethargic and oriented to name only. Pt. was given Zosyn in the ED and on reassessment was found to have sloughing of skin in the left buttocks and elbows similarly to her reaction to the Dilantin and Keppra. Call made to [facility] and it was reported that Pt. has had SJS reaction to Zosyn at that facility. During previous admission Pt. was noted to be non- compliant with her medications at home. REVIEW OF SYSTEMS: As above PHYSICAL EXAMINATION Vital Signs - 24 hr 01/22/19 01/22/19 01/22/19 14:05 18:50 20:12 Temperature 102.5 F H 101.3 F H Pulse Rate 101 H Pulse Rate [ 106 H 100 H Left Radial] Respiratory 32 H 14 Rate Blood Pressure 120/60 Blood Pressure 125/92 150/127 H [Right Arm] O2 Sat by Pulse 100 100 98 Oximetry (%) 01/23/19 01/23/19 01/23/19 00:54 00:56 03:02 Temperature 101.2 F H 101.2 F H Pulse Rate 105 H Pulse Rate [ 105 H 104 H Left Radial] Respiratory 20 20 20 Rate Blood Pressure Blood Pressure 147/71 [Right Arm] O2 Sat by Pulse 95 95 95 Oximetry (%) 01/23/19 01/23/19 01/23/19 03:38 05:40 10:15 Temperature 99.0 F 100.1 F H Pulse Rate 113 H Pulse Rate [ 108 H Left Radial] Respiratory 32 H 24 H Rate Blood Pressure 95/79 Blood Pressure 119/61 [Right Arm] O2 Sat by Pulse 96 100 99 Oximetry (%) 01/23/19 01/23/19 10:36 11:15 Temperature Pulse Rate 103 H Pulse Rate [ Left Radial] Respiratory 20 Rate Blood Pressure Blood Pressure [Right Arm] O2 Sat by Pulse 99 Oximetry (%) GENERAL: Lethargic, oriented to name only HEAD: Normal with no signs of trauma. EYES: Pupils equal, round and reactive to light, sclera anicteric, conjunctiva clear. EARS, NOSE, THROAT: Dry mucous membranes. LUNGS: Breath sounds equal, clear to auscultation bilaterally. No wheezes, and no crackles. Significant accessory muscle use in scalene muscles, labored respirations which on Non-rebreather--> now intubated HEART: Regular rate and rhythm, normal S1 and S2 without murmur ABDOMEN: Soft, nontender, not distended, normoactive bowel sounds, no guarding, no rebound, no masses. MUSCULOSKELETAL: Normal range of motion at all joints. No bony deformities or tenderness. UPPER EXTREMITIES: 2+ radial pulses, warm, well-perfused. No cyanosis. LOWER EXTREMITIES: 2+ pulses, warm, well-perfused. No calf tenderness. No peripheral edema. NEUROLOGICAL: Lethargic PSYCHIATRIC: Sedated, was cooperative briefly during my assessment SKIN: sloughing skin on shins anteriorly with skin break down on the buttocks L> R, sloughing skin around knuckles Laboratory Results - last 24 hr 01/22/19 01/22/19 01/22/19 15:25 15:50 15:50 WBC 18.4 H RBC 5.37 H Hgb 13.0 Hct 40.2 MCV 74.8 L MCH 24.3 L MCHC 32.4 RDW 17.9 H Plt Count 193 D MPV 8.7 Absolute Neuts (auto) 17.3 H Neutrophils % 93.9 H D Neutrophils % (Manual) 83.0 H Band Neutrophils % 10.0 Lymphocytes % 1.9 L D Lymphocytes % (Manual) 2.0 L D Monocytes % 3.4 L Monocytes % (Manual) 4 Eosinophils % 0.4 D Eosinophils % (Manual) 1.0 Basophils % 0.4 Nucleated RBC % 0 Hypochromia 1+ Platelet Estimate Adequate PT with INR 15.80 H INR 1.34 H PTT (Actin FS) 25.3 Anticoagulation Therapy Puncture Site ABG pH ABG pCO2 at Pt Temp ABG pO2 at Pt Temp ABG HCO3 ABG O2 Sat (Measured) ABG O2 Content ABG Base Excess Danie Test VBG pH POC VBG pCO2 POC VBG pO2 VBG HCO3 VBG O2 Sat (Gill) VBG Base Excess O2 Delivery Device Oxygen Flow Rate Vent Mode Vent Rate Mechanical Rate Pressure Support Vent Sodium 141 Potassium 5.0 Chloride 106 Carbon Dioxide 20 L Anion Gap 15 BUN 62.7 H Creatinine 5.0 H Est GFR (CKD-EPI)AfAm 10.35 Est GFR (CKD-EPI)NonAf 8.93 Random Glucose 76 Lactic Acid Calcium 8.4 L Phosphorus Magnesium Total Bilirubin 0.3 Direct Bilirubin AST 56 H ALT 32 Alkaline Phosphatase 53 Creatine Kinase 1356 H Creatine Kinase Index 1.0 CK-MB (CK-2) 14.7 H Troponin I < 0.02 Total Protein 6.5 Albumin 3.1 L TSH Urine Color Urine Appearance Urine pH Ur Specific [place] Urine Protein Urine Glucose (UA) Urine Ketones Urine Blood Urine Nitrite Urine Bilirubin Urine Urobilinogen Ur Leukocyte Esterase Urine WBC (Auto) Urine RBC (Auto) Urine Casts (Auto) U Epithel Cells (Auto) Urine Bacteria (Auto) Opiates Screen Methadone Screen Barbiturate Screen Phencyclidine Screen Ur Amphetamines Screen MDMA (Ecstasy) Screen Benzodiazepines Screen Cocaine Screen U Marijuana (THC) Screen 01/22/19 01/22/19 01/22/19 15:50 18:00 19:40 WBC RBC Hgb Hct MCV MCH MCHC RDW Plt Count MPV Absolute Neuts (auto) Neutrophils % Neutrophils % (Manual) Band Neutrophils % Lymphocytes % Lymphocytes % (Manual) Monocytes % Monocytes % (Manual) Eosinophils % Eosinophils % (Manual) Basophils % Nucleated RBC % Hypochromia Platelet Estimate PT with INR INR PTT (Actin FS) Anticoagulation Therapy Puncture Site ABG pH ABG pCO2 at Pt Temp ABG pO2 at Pt Temp ABG HCO3 ABG O2 Sat (Measured) ABG O2 Content ABG Base Excess Danie Test VBG pH 7.39 POC VBG pCO2 34.1 L POC VBG pO2 54.3 H VBG HCO3 20.1 L VBG O2 Sat (Gill) 85.5 H VBG Base Excess -3.7 L O2 Delivery Device Oxygen Flow Rate Vent Mode Vent Rate Mechanical Rate Pressure Support Vent Sodium Potassium Chloride Carbon Dioxide Anion Gap BUN Creatinine Est GFR (CKD-EPI)AfAm Est GFR (CKD-EPI)NonAf Random Glucose Lactic Acid 4.0 H* Calcium Phosphorus Magnesium Total Bilirubin Direct Bilirubin AST ALT Alkaline Phosphatase Creatine Kinase Creatine Kinase Index CK-MB (CK-2) Troponin I Total Protein Albumin TSH Urine Color Dk yellow Urine Appearance Turbid Urine pH 5.0 D Ur Specific [place] 1.019 Urine Protein 2+ H Urine Glucose (UA) Negative Urine Ketones Trace H Urine Blood 2+ H Urine Nitrite Negative Urine Bilirubin Negative Urine Urobilinogen 1.0 Ur Leukocyte Esterase 2+ H Urine WBC (Auto) 53 Urine RBC (Auto) 5.5 Urine Casts (Auto) 73 U Epithel Cells (Auto) 7.7 Urine Bacteria (Auto) 18.0 Opiates Screen Methadone Screen Barbiturate Screen Phencyclidine Screen Ur Amphetamines Screen MDMA (Ecstasy) Screen Benzodiazepines Screen Cocaine Screen U Marijuana (THC) Screen 01/22/19 01/23/19 01/23/19 19:40 06:00 06:25 WBC 13.2 H RBC 5.01 Hgb 12.3 Hct 37.7 MCV 75.3 L MCH 24.6 L MCHC 32.7 RDW 17.8 H Plt Count 150 D MPV 9.1 Absolute Neuts (auto) Neutrophils % Neutrophils % (Manual) Band Neutrophils % Lymphocytes % Lymphocytes % (Manual) Monocytes % Monocytes % (Manual) Eosinophils % Eosinophils % (Manual) Basophils % Nucleated RBC % Hypochromia Platelet Estimate PT with INR INR PTT (Actin FS) Anticoagulation Therapy No Result Required. Puncture Site Right radial ABG pH 7.40 ABG pCO2 at Pt Temp 29.8 L ABG pO2 at Pt Temp 174 H ABG HCO3 17.9 L ABG O2 Sat (Measured) 99.4 H ABG O2 Content 17.0 ABG Base Excess -5.4 L Danie Test Positive VBG pH POC VBG pCO2 POC VBG pO2 VBG HCO3 VBG O2 Sat (Gill) VBG Base Excess O2 Delivery Device Nrb mask Oxygen Flow Rate 100% Vent Mode No Result Required. Vent Rate No Result Required. Mechanical Rate No Result Required. Pressure Support Vent No Result Required. Sodium Potassium Chloride Carbon Dioxide Anion Gap BUN Creatinine Est GFR (CKD-EPI)AfAm Est GFR (CKD-EPI)NonAf Random Glucose Lactic Acid 1.8 Calcium Phosphorus Magnesium Total Bilirubin Direct Bilirubin AST ALT Alkaline Phosphatase Creatine Kinase Creatine Kinase Index CK-MB (CK-2) Troponin I Total Protein Albumin TSH Urine Color Urine Appearance Urine pH Ur Specific [place] Urine Protein Urine Glucose (UA) Urine Ketones Urine Blood Urine Nitrite Urine Bilirubin Urine Urobilinogen Ur Leukocyte Esterase Urine WBC (Auto) Urine RBC (Auto) Urine Casts (Auto) U Epithel Cells (Auto) Urine Bacteria (Auto) Opiates Screen Methadone Screen Barbiturate Screen Phencyclidine Screen Ur Amphetamines Screen MDMA (Ecstasy) Screen Benzodiazepines Screen Cocaine Screen U Marijuana (THC) Screen 01/23/19 01/23/19 01/23/19 06:25 09:55 11:55 WBC RBC Hgb Hct MCV MCH MCHC RDW Plt Count MPV Absolute Neuts (auto) Neutrophils % Neutrophils % (Manual) Band Neutrophils % Lymphocytes % Lymphocytes % (Manual) Monocytes % Monocytes % (Manual) Eosinophils % Eosinophils % (Manual) Basophils % Nucleated RBC % Hypochromia Platelet Estimate PT with INR INR PTT (Actin FS) Anticoagulation Therapy No Result Required. Puncture Site ABG pH ABG pCO2 at Pt Temp ABG pO2 at Pt Temp ABG HCO3 ABG O2 Sat (Measured) ABG O2 Content ABG Base Excess Danie Test VBG pH POC VBG pCO2 POC VBG pO2 VBG HCO3 VBG O2 Sat (Gill) VBG Base Excess O2 Delivery Device No Result Required. Oxygen Flow Rate No Result Required. Vent Mode No Result Required. Vent Rate No Result Required. Mechanical Rate No Result Required. Pressure Support Vent No Result Required. Sodium 141 Potassium 4.1 Chloride 107 Carbon Dioxide 19 L Anion Gap 14 BUN 75.6 H Creatinine 5.4 H Est GFR (CKD-EPI)AfAm 9.43 Est GFR (CKD-EPI)NonAf 8.13 Random Glucose 95 Lactic Acid Calcium 7.8 L Phosphorus 4.9 Magnesium 2.2 Total Bilirubin 0.5 Direct Bilirubin 0.2 AST 63 H ALT 44 Alkaline Phosphatase 48 Creatine Kinase Creatine Kinase Index CK-MB (CK-2) Troponin I Total Protein 5.8 L Albumin 2.8 L TSH 0.90 Urine Color Urine Appearance Urine pH Ur Specific [place] Urine Protein Urine Glucose (UA) Urine Ketones Urine Blood Urine Nitrite Urine Bilirubin Urine Urobilinogen Ur Leukocyte Esterase Urine WBC (Auto) Urine RBC (Auto) Urine Casts (Auto) U Epithel Cells (Auto) Urine Bacteria (Auto) Opiates Screen Negative Methadone Screen Negative Barbiturate Screen Negative Phencyclidine Screen Negative Ur Amphetamines Screen Negative MDMA (Ecstasy) Screen Negative Benzodiazepines Screen Negative Cocaine Screen Negative U Marijuana (THC) Screen Negative Active Medications Current Medications Acetaminophen (Ofirmev Injection -) 1,000 mg IVPB Q6H PRN PRN Reason: FEVER Albuterol Sulfate (Ventolin 0.083% Nebulizer Soln -) 1 amp NEB RQID JOSEF Last Admin: 01/23/19 11:40 Dose: 1 amp Albuterol/Ipratropium (Duoneb -) 1 amp NEB Q6H PRN PRN Reason: SHORTNESS OF BREATH Heparin Sodium (Porcine) (Heparin -) 5,000 unit SQ BID JOSEF Last Admin: 01/22/19 22:40 Dose: 5,000 unit Sodium Chloride (Normal Saline -) 1,000 mls @ 125 mls/hr IV ASDIR JOSEF Last Admin: 01/22/19 21:36 Dose: 125 mls/hr Propofol (Diprivan -) 1,000,000 mcg in 100 mls @ 3.239 mls/hr IVPB TITR JOSEF; Protocol Lactated Ringer's (Lactated Ringers Solution) 1,000 ml in 1,000 mls @ 100 mls/ hr IV ASDIR JOSEF Daptomycin 600 mg/ Sodium (Chloride) 100 mls @ 200 mls/hr IVPB Q48H JOSEF; Protocol Aztreonam 1 gm/ Dextrose 50 mls @ 100 mls/hr IVPB Q12H JOSEF Timolol Maleate (Timoptic 0.5%) 1 drop OU DAILY JOSEF ASSESSMENT/PLAN: Pt. is a 58 y.o. F w/ PMHx. of hemorrhagic stroke w/ residual left-sided weakness, SJS(to Valentino and Ester) HTN, HLD, and complex partial seizures presents by sister(though not at bedside during interview) with altered mental status secondary to sepsis. Neurology #Acute Metabolic Encephalopathy 2/2 Sepsis like 2/[address] unchanged from prior, chronic gliosis, chronic R. parietal lobe infarct CXR: no acute pathology UA: 3+ LE, 53 WBCs, 2+ protein, 2+ blood Given Zosyn, Vancomycin, Ampicillin, Acyclovir and Ceftriaxone in ED Neurology consult (Dr. Mcrae) appreciated--> start Depakote 750mg BID(As Pt. is NPO), Psychiatric Eval. and MRI when feasible. Discontinue Zosyn c/w Aztreonam and Daptomycin ID Consult (Dr. Meadows) appreciated Pt. notable grew VRE in the urine in the past Aggressive IVF LA: 4.0--> 1.8 Seizure precautions Pulmonology #Acute Hypoxic Respiratory Failure Pt. intubated and sedated on Propofol and Fentanyl drips c/w Duonebs PRN and Albuterol RQID maintain SpO2 above 90% CXR as above Nephrology #Acute Renal Failure 2/2 UTI Pt. noted to have Cr. around 0.9 on discharge one month ago, now currently 5.4 UA noted as above likely component of hypovolemia and UTI Renal US unremarkable(echogenic right kidney indicative of chronic renal disease ), noted some non-specific periportal edema c/w IVF --> receive ~3L in ED c/w Abx. as detailed above Nephrology consult (Dr. 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 Spoke with Dr. Cheung who states that Pt. should be transferred to [facility] of SJS , particuallarly because they have a burn unit and have documented Hx. of diagnosing her with SJS. Cardiovascular #HTN #HLD Trop Negative Gastrointestinal No issues at this time, however if there is prolonged intubation would strongly consider starting Protionix as stress ulcer prophylaxis FEN LR @ 100 monitor electrolytes and replete as needed NPO DVT Ppx. Hep SQ BID Visit type - Emergency Visit Emergency Visit: Yes ED Registration Date: 01/22/19 Care time: The patient presented to the Emergency Department on the above date and was hospitalized for further evaluation of their emergent condition. - New Patient This patient is new to me today: Yes Date on this admission: 01/23/19 - Critical Care Critical Care patient: No ATTENDING PHYSICIAN STATEMENT I saw and evaluated the patient. I reviewed the resident's note and discussed the case with the resident. I agree with the resident's findings and plan as documented. SUBJECTIVE: OBJECTIVE: ASSESSMENT AND PLAN:
[2019-01-23 12:40] LABS: ALLENS TEST POSITIVE
[2019-01-23] MEDS ORDERED: fentaNYL CITRATE 250 MCG/5 ML VIAL ONE (13:47)
[2019-01-23] MEDS: HEPARIN NA (PORCINE) 5,000 UNITS/ML 1ML VIAL SQ SCH ×2 (13:51→21:35)
[2019-01-23] MEDS: FENTANYL INJECTION 500 MCG in DEXTROSE 5%-WATER - 90 ML IVPB SCH (13:52)
[2019-01-23] MEDS: AZTREONAM 1 GM in DEXTROSE 5%-WATER - 50 ML IVPB SCH ×2 (13:54→21:35)
[2019-01-23] MEDS: TIMOLOL 0.5% OPHTHALMIC SOL 5 ML BOTTLE OU SCH (13:55)
--- NOTE | 2019-01-23 14:40 | PROC ---
<Juan Dodd - Last Filed: 01/23/19 14:41> Central Line Insertion Indication: Poor Venous Access Risks and Benefits Explained: No (line placed emergently) Consent on Chart: No (line placed emergently) Central Line: Triple Lumen Catheter Anesthesia: 1% Lidocaine Sterile Technique: Yes Ultrasound Guided Assistance: Yes Position: Right Internal Jugular Post Insertion: Yes: Chest X-Ray Ordered Sterile Dressing Applied: Yes Remarks: Line was placed emergently due to no venous access available. Only access prior was R tibia IO Patient required aggressive IV hydration and sedation <Alvino Hernandez MD - Last Filed: 01/24/19 11:39> Procedure Note Procedure: I supervised and was present during the entire procedure. Alvino Hernandez MD
[2019-01-23] MEDS: ACETAMINOPHEN 1000 MG/100 ML VIAL (NON FORMULARY) IVPB PRN (21:35)
[2019-01-24] MEDS ORDERED: ACYCLOVIR INJECTION 300 MG in DEXTROSE 5%-WATER - 100 ML IVPB ONE (02:00)
[2019-01-24] MEDS ORDERED: fentaNYL CITRATE 250 MCG/5 ML VIAL ONE (04:20)
[2019-01-24] MEDS: PROPOFOL 1,000,000 MCG/100 ML VIAL IVPB SCH ×4 (05:00→23:35)
[2019-01-24] MEDS: FENTANYL INJECTION 500 MCG in DEXTROSE 5%-WATER - 90 ML IVPB SCH ×2 (06:19→12:30)
[2019-01-24 06:49] LABS: BASO % 0.5 % (0-2.0); HEMATOCRIT 33.4 % (32.4-45.2); HEMOGLOBIN 11.4 GM/dL (10.7-15.3); LYMPH % 7.4 % (8-40); MCH 25.2 pg (25.7-33.7); MONO % 3.2 % (3.8-10.2); NEUT % 82.9 % (42.8-82.8); PLATELET COUNT 115 K/MM3 (134-434); RBC 4.51 M/mm3 (3.60-5.2); RDW 18.4 % (11.6-15.6); WHITE BLOOD COUNT 10.7 K/mm3 (4.0-10.0)
[2019-01-24 07:45] LABS: ALBUMIN 2.4 g/dl (3.4-5.0); BILIRUBIN,TOTAL 0.4 mg/dL (0.2-1); BLOOD UREA NITROGEN 92.9 mg/dL (7-18); CALCIUM 7.3 mg/dL (8.5-10.1); CREATININE 5.3 mg/dL (0.55-1.3); MAGNESIUM 2.2 mg/dL (1.8-2.4); PHOSPHOROUS 6.4 mg/dL (2.5-4.9); POTASSIUM 3.9 mmol/L (3.5-5.1); TOT PROT 5.2 g/dl (6.4-8.2)
--- NOTE | 2019-01-24 08:24 | PN ---
Progress Note (short form) - Note Progress Note: Neurology CHIEF COMPLAINT: AMS, fever HISTORY OF PRESENT ILLNESS: 58yo woman with a PMH of hemorrhagic stroke w/ residual left-sided weakness, HTN , HLD, complex partial seizures who presented with AMS, fever, and shaking on day of admission. Per notes, the sister reported that the patient was in her usual state of health when she went with the sister and mother the day prior to admission to tour a SNF; on the way home, she reported that she felt nauseated with an episode of vomiting. Otherwise, she has had no complaints recently. The day of admission, her sister noticed that the pt was "lethargic" and shaking as well as poorly responsive. She was unable to complete a conversation. The sister helped give her medications that morning but was concerned that she was acting strangely. Ct head was completed without acute changes. Patient found to have fever on admission with RAMYA and tachypnea, facemask in place. EEG ordered to evaluate for any abnormal blood form activity. The patient was on Tegretol but is not currently able to take by mouth. Reportedly with allergies to Keppra and Dilantin, therefore recommended Depakote, IV formulation 750 mg twice a day. Patient on propofol sedation in ICU which also serves to prevent seizure activity. No abnormal movement during my evaluation. Intubated, ventilated. WBC improving to 10 but BUN/CR remains elevated at 92/5.3. Utox was negative. Allergies levetiracetam [From Keppra] Adverse Reaction (Verified 01/22/19 14:25) phenytoin sodium [From Dilantin] Adverse Reaction (Verified 01/22/19 14:25) phenytoin sodium extended [From Dilantin] Adverse Reaction (Verified 01/22/19 14 :25) Active Medications Acetaminophen (Ofirmev Injection -) 1,000 mg IVPB Q6H PRN PRN Reason: FEVER Last Admin: 01/23/19 21:35 Dose: 1,000 mg Albuterol Sulfate (Ventolin 0.083% Nebulizer Soln -) 1 amp NEB RQID JOSEF Last Admin: 01/23/19 21:30 Dose: 1 amp Albuterol/Ipratropium (Duoneb -) 1 amp NEB Q6H PRN PRN Reason: SHORTNESS OF BREATH Heparin Sodium (Porcine) (Heparin -) 5,000 unit SQ BID JOSEF Last Admin: 01/23/19 21:35 Dose: 5,000 unit Propofol (Diprivan -) 1,000,000 mcg in 100 mls @ 3.239 mls/hr IVPB TITR JOSEF; Protocol Last Admin: 01/24/19 05:00 Dose: 40 mcg/kg/min, 25.909 mls/hr Lactated Ringer's (Lactated Ringers Solution) 1,000 ml in 1,000 mls @ 100 mls/ hr IV ASDIR JOSEF Last Admin: 01/23/19 10:40 Dose: 100 mls/hr Aztreonam 1 gm/ Dextrose 50 mls @ 100 mls/hr IVPB BID JOSEF Last Admin: 01/23/19 21:35 Dose: 100 mls/hr Fentanyl 500 mcg/ Dextrose 100 mls @ 5 mls/hr IVPB TITR JOSEF; Protocol Last Admin: 01/24/19 06:19 Dose: 25 mcg/hr, 5 mls/hr Timolol Maleate (Timoptic 0.5%) 1 drop OU DAILY JOSEF Last Admin: 01/23/19 13:55 Dose: 1 drop PHYSICAL EXAMINATION Vital Signs Period Temp Pulse Resp BP Sys/Lewis Pulse Ox Last 24 Hr 98.3 F-100.4 F 93-115 20-38 94-116/55-79 97-100 GENERAL:On sedation, on ventilator HEAD: Normal with no signs of trauma. EYES: Pupils constricted, mimimal reaction to light, sclera anicteric, conjunctiva clear. No lid lag. EARS, NOSE, THROAT: Ears normal, nares patent, oropharynx clear without exudates. Moist mucous membranes. LUNGS: Mechanical breath sounds HEART: Regular rate and rhythm, normal S1 and S2 without murmur, rub or gallop. ABDOMEN: Normoactive bowel sounds EXTREMITIES: 2+ pulses, warm, well-perfused. No cyanosis. No clubbing. No peripheral edema. NEUROLOGICAL: Does not respond to voice or follow command, responds to pain, gag +, corneal +, no abnormal motor activity SKIN: Warm, dry, normal turgor, no rashes or lesions noted, normal capillary refill. CBCD WBC 10.7 K/mm3 (4.0-10.0) H 01/24/19 05:41 RBC 4.51 M/mm3 (3.60-5.2) 01/24/19 05:41 Hgb 11.4 GM/dL (10.7-15.3) 01/24/19 05:41 Hct 33.4 % (32.4-45.2) 01/24/19 05:41 MCV 74.0 fl (80-96) L 01/24/19 05:41 MCHC 34.0 g/dl (32.0-36.0) 01/24/19 05:41 RDW 18.4 % (11.6-15.6) H 01/24/19 05:41 Plt Count 115 K/MM3 (134-434) L D 01/24/19 05:41 MPV 9.0 fl (7.5-11.1) 01/24/19 05:41 CMP Sodium 140 mmol/L (136-145) 01/24/19 05:41 Potassium 3.9 mmol/L (3.5-5.1) 01/24/19 05:41 Chloride 106 mmol/L (98-107) 01/24/19 05:41 Carbon Dioxide 22 mmol/L (21-32) 01/24/19 05:41 Anion Gap 12 MMOL/L (8-16) 01/24/19 05:41 BUN 92.9 mg/dL (7-18) H 01/24/19 05:41 Creatinine 5.3 mg/dL (0.55-1.3) H 01/24/19 05:41 Random Glucose 98 mg/dL (74-106) 01/24/19 05:41 Calcium 7.3 mg/dL (8.5-10.1) L 01/24/19 05:41 Total Bilirubin 0.4 mg/dL (0.2-1) 01/24/19 05:41 AST 28 U/L (15-37) 01/24/19 05:41 ALT 35 U/L (13-61) 01/24/19 05:41 Alkaline Phosphatase 53 U/L (45-117) 01/24/19 05:41 Total Protein 5.2 g/dl (6.4-8.2) L 01/24/19 05:41 Albumin 2.4 g/dl (3.4-5.0) L 01/24/19 05:41 CARDIAC ENZYMES Creatine Kinase 414 U/L (26-192) H 01/24/19 05:41 Troponin I < 0.02 ng/ml (0.00-0.05) 01/22/19 15:50 ASSESSMENT/PLAN: 58yo woman with a PMH of hemorrhagic stroke w/ residual left-sided weakness, HTN , HLD, complex partial seizures who presented with AMS, fever, and shaking on day of admission. Per notes, the sister reported that the patient was in her usual state of health when she went with the sister and mother the day prior to admission to [facility] a SNF; on the way home, she reported that she felt nauseated with an episode of vomiting. Otherwise, she has had no complaints recently. The day of admission, her sister noticed that the pt was "lethargic" and shaking as well as poorly responsive. She was unable to complete a conversation. The sister helped give her medications that morning but was concerned that she was acting strangely. Ct head was completed without acute changes. Patient found to have fever on admission with RAMYA and tachypnea, facemask in place. EEG ordered to evaluate for any abnormal blood form activity. The patient was on Tegretol but is not currently able to take by mouth. Reportedly with allergies to Keppra and Dilantin, therefore recommended Depakote, IV formulation 750 mg twice a day. Patient on propofol sedation in ICU which also serves to prevent seizure activity. No abnormal movement during my evaluation. Intubated, ventilated. WBC improving to 10 but BUN/CR remains elevated at 92/5.3. Utox was negative. Continue sepsis management, remains hypotensive. ABx per ID, follow up ID rec'd. Maintain adequate hydration. Monitor electrolytes, correction of RAMYA. Psych eval/input recommended on medication. MRI brain when able. Wean vent as able. Critical care time 40mins.
[2019-01-24] MEDS: ALBUTEROL SO4 0.083% IH SOL 2.5 MG/3 ML VIAL.NEB. NEB SCH ×4 (08:49→21:00)
[2019-01-24] MEDS: AZTREONAM 1 GM in DEXTROSE 5%-WATER - 50 ML IVPB SCH ×2 (09:47→21:12)
[2019-01-24] MEDS: HEPARIN NA (PORCINE) 5,000 UNITS/ML 1ML VIAL SQ SCH ×2 (09:48→21:13)
--- NOTE | 2019-01-24 10:14 | PN ---
Teaching Attending Note Name of Resident: Karlee Díaz ATTENDING PHYSICIAN STATEMENT I saw and evaluated the patient. I reviewed the resident's note and discussed the case with the resident. I agree with the resident's findings and plan as documented with exceptions below. SUBJECTIVE: patient seen and examined, intubated, sedated. OBJECTIVE: Vital Signs Period Temp Pulse Resp BP Sys/Lewis Pulse Ox Last 24 Hr 98.3 F-100.4 F 93-115 20-38 94-114/55-79 98-100 Intake & Output 01/21/19 01/22/19 01/23/19 01/24/19 23:59 23:59 23:59 23:59 Intake Total 1323.8 1448 Output Total 200 500 250 Balance -200 823.8 1198 Weight 238 lb 225 lb 8.526 oz 231 lb 2 oz General intubated sedated in bed, no acute distress Neck: soft, supple Chest: limited exam, no rales or wheezing appreciated Abdomen:Soft, obese, pos bowel sounds, no voluntary or involuntary guarding or rigidity Extremities: no edema Skin: Sloughing friable left back Home Medications Medication Instructions Recorded Aspirin [ASA -] 81 mg PO DAILY 12/29/15 Metoprolol Tartrate [Lopressor -] 50 mg PO BID #60 tab 10/26/17 Nifedipine [Procardia Xl] 60 mg PO DAILY #30 tab 10/26/17 Oxcarbazepine 150 mg PO BID #60 tablet 10/26/17 Timolol 0.5% [Timoptic 0.5%] 1 drop OU DAILY #1 bottle 10/26/17 Acetaminophen [Tylenol .Regular 650 mg PO Q6H PRN tablet 11/03/18 Strength -] Albuterol 0.083% Nebulizer Emmy 1 amp NEB RQID amp 11/03/18 [Ventolin 0.083% Nebulizer Soln -] Nystatin/Triamcinolone Top Oin 1 applic TP BID applic 11/03/18 [Mycolog II -] Ofloxacin 0.3% Ophth Soln [Ocuflox 1 drop OU Q4HWA drops 11/03/18 -] Petrolatum - White [Vaseline -] 1 applic TP DAILY applic 11/03/18 Active Medications Acetaminophen (Ofirmev Injection -) 1,000 mg IVPB Q6H PRN PRN Reason: FEVER Last Admin: 01/23/19 21:35 Dose: 1,000 mg Albuterol Sulfate (Ventolin 0.083% Nebulizer Soln -) 1 amp NEB RQID JOSEF Last Admin: 01/24/19 08:49 Dose: 1 amp Albuterol/Ipratropium (Duoneb -) 1 amp NEB Q6H PRN PRN Reason: SHORTNESS OF BREATH Heparin Sodium (Porcine) (Heparin -) 5,000 unit SQ BID JOSEF Last Admin: 01/24/19 09:48 Dose: 5,000 unit Propofol (Diprivan -) 1,000,000 mcg in 100 mls @ 3.239 mls/hr IVPB TITR JOSEF; Protocol Last Admin: 01/24/19 09:54 Dose: 40 mcg/kg/min, 25.909 mls/hr Lactated Ringer's (Lactated Ringers Solution) 1,000 ml in 1,000 mls @ 100 mls/ hr IV ASDIR [facility] Last Admin: 01/23/19 10:40 Dose: 100 mls/hr Aztreonam 1 gm/ Dextrose 50 mls @ 100 mls/hr IVPB BID JOSEF Last Admin: 01/24/19 09:47 Dose: 100 mls/hr Fentanyl 500 mcg/ Dextrose 100 mls @ 5 mls/hr IVPB TITR JOSEF; Protocol Last Admin: 01/24/19 06:19 Dose: 25 mcg/hr, 5 mls/hr Timolol Maleate (Timoptic 0.5%) 1 drop OU DAILY [facility] Last Admin: 01/23/19 13:55 Dose: 1 drop Laboratory Results - last 24 hr 01/23/19 01/23/19 01/23/19 09:55 11:55 14:14 WBC RBC Hgb Hct MCV MCH MCHC RDW Plt Count MPV Absolute Neuts (auto) Neutrophils % Lymphocytes % Monocytes % Eosinophils % Basophils % Nucleated RBC % ESR Anticoagulation Therapy No Result Required. Puncture Site Right radial ABG pH 7.36 ABG pCO2 at Pt Temp 32.7 L ABG pO2 at Pt Temp 70.0 L ABG HCO3 17.8 L ABG O2 Sat (Measured) 92.4 L ABG O2 Content 16.7 ABG Base Excess -6.3 L Danie Test Positive O2 Delivery Device No Result Required. Oxygen Flow Rate 40 Vent Mode No Result Required. Vent Rate No Result Required. Mechanical Rate No Result Required. Pressure Support Vent No Result Required. Sodium Potassium Chloride Carbon Dioxide Anion Gap BUN Creatinine Est GFR (CKD-EPI)AfAm Est GFR (CKD-EPI)NonAf POC Glucometer 96 Random Glucose Calcium Phosphorus Magnesium Total Bilirubin AST ALT Alkaline Phosphatase Creatine Kinase Creatine Kinase Index CK-MB (CK-2) C-Reactive Protein Total Protein Albumin Ur Random Creatinine U Random Total Protein Ur Random Sodium Ur Random Urea Nitrogn Opiates Screen Negative Methadone Screen Negative Barbiturate Screen Negative Phencyclidine Screen Negative Ur Amphetamines Screen Negative MDMA (Ecstasy) Screen Negative Benzodiazepines Screen Negative Cocaine Screen Negative U Marijuana (THC) Screen Negative 01/23/19 01/23/19 01/23/19 18:00 18:00 18:00 WBC RBC Hgb Hct MCV MCH MCHC RDW Plt Count MPV Absolute Neuts (auto) Neutrophils % Lymphocytes % Monocytes % Eosinophils % Basophils % Nucleated RBC % ESR Anticoagulation Therapy Puncture Site ABG pH ABG pCO2 at Pt Temp ABG pO2 at Pt Temp ABG HCO3 ABG O2 Sat (Measured) ABG O2 Content ABG Base Excess Danie Test O2 Delivery Device Oxygen Flow Rate Vent Mode Vent Rate Mechanical Rate Pressure Support Vent Sodium Potassium Chloride Carbon Dioxide Anion Gap BUN Creatinine Est GFR (CKD-EPI)AfAm Est GFR (CKD-EPI)NonAf POC Glucometer Random Glucose Calcium Phosphorus Magnesium Total Bilirubin AST ALT Alkaline Phosphatase Creatine Kinase Creatine Kinase Index CK-MB (CK-2) C-Reactive Protein Total Protein Albumin Ur Random Creatinine 114.0 U Random Total Protein 68.6 H Ur Random Sodium 20 L Ur Random Urea Nitrogn Opiates Screen Methadone Screen Barbiturate Screen Phencyclidine Screen Ur Amphetamines Screen MDMA (Ecstasy) Screen Benzodiazepines Screen Cocaine Screen U Marijuana (THC) Screen 01/23/19 01/23/19 01/24/19 18:00 21:49 02:40 WBC RBC Hgb Hct MCV MCH MCHC RDW Plt Count MPV Absolute Neuts (auto) Neutrophils % Lymphocytes % Monocytes % Eosinophils % Basophils % Nucleated RBC % ESR Anticoagulation Therapy Puncture Site ABG pH ABG pCO2 at Pt Temp ABG pO2 at Pt Temp ABG HCO3 ABG O2 Sat (Measured) ABG O2 Content ABG Base Excess Danie Test O2 Delivery Device Oxygen Flow Rate Vent Mode Vent Rate Mechanical Rate Pressure Support Vent Sodium Potassium Chloride Carbon Dioxide Anion Gap BUN Creatinine Est GFR (CKD-EPI)AfAm Est GFR (CKD-EPI)NonAf POC Glucometer 85 85 Random Glucose Calcium Phosphorus Magnesium Total Bilirubin AST ALT Alkaline Phosphatase Creatine Kinase Creatine Kinase Index CK-MB (CK-2) C-Reactive Protein Total Protein Albumin Ur Random Creatinine U Random Total Protein Ur Random Sodium Ur Random Urea Nitrogn 543 Opiates Screen Methadone Screen Barbiturate Screen Phencyclidine Screen Ur Amphetamines Screen MDMA (Ecstasy) Screen Benzodiazepines Screen Cocaine Screen U Marijuana (THC) Screen 01/24/19 01/24/19 01/24/19 05:41 05:41 05:41 WBC 10.7 H RBC 4.51 Hgb 11.4 Hct 33.4 MCV 74.0 L MCH 25.2 L MCHC 34.0 RDW 18.4 H Plt Count 115 L D MPV 9.0 Absolute Neuts (auto) 8.9 H Neutrophils % 82.9 H Lymphocytes % 7.4 L D Monocytes % 3.2 L Eosinophils % 6.0 H D Basophils % 0.5 Nucleated RBC % 0 ESR 14 Anticoagulation Therapy Puncture Site ABG pH ABG pCO2 at Pt Temp ABG pO2 at Pt Temp ABG HCO3 ABG O2 Sat (Measured) ABG O2 Content ABG Base Excess Danie Test O2 Delivery Device Oxygen Flow Rate Vent Mode Vent Rate Mechanical Rate Pressure Support Vent Sodium 140 Potassium 3.9 Chloride 106 Carbon Dioxide 22 Anion Gap 12 BUN 92.9 H Creatinine 5.3 H Est GFR (CKD-EPI)AfAm 9.64 Est GFR (CKD-EPI)NonAf 8.32 POC Glucometer Random Glucose 98 Calcium 7.3 L Phosphorus 6.4 H Magnesium 2.2 Total Bilirubin 0.4 AST 28 ALT 35 Alkaline Phosphatase 53 Creatine Kinase 414 H Creatine Kinase Index 0.9 CK-MB (CK-2) 4.0 H C-Reactive Protein 27.7 H Total Protein 5.2 L Albumin 2.4 L Ur Random Creatinine U Random Total Protein Ur Random Sodium Ur Random Urea Nitrogn Opiates Screen Methadone Screen Barbiturate Screen Phencyclidine Screen Ur Amphetamines Screen MDMA (Ecstasy) Screen Benzodiazepines Screen Cocaine Screen U Marijuana (THC) Screen Microbiology 01/22/19 18:00 Urine - Urine Clean Catch Urine Culture - Preliminary Lactose Fermenting Neg Bacilli 01/22/19 19:35 Blood - Peripheral Venous Blood Culture - Preliminary NO GROWTH OBTAINED AFTER 24 HOURS, INCUBATION TO CONTINUE FOR 4 DAYS. 01/22/19 19:35 Blood - Peripheral Venous Blood Culture - Preliminary NO GROWTH OBTAINED AFTER 24 HOURS, INCUBATION TO CONTINUE FOR 4 DAYS. ASSESSMENT AND PLAN: 58 yof with PMhx of R haemorrhagic stroke, complex partial seizure disorder due to the same, HTN, HLD, prolonged admission in 11/2018 with AMS, seizures, fevers , RAMYA admitted with AMS, fevers, RAMYA, now with tachypnea -AMS, toxic metabolic encephalopathy from infection/RAMYA vs seizures vs post ictal -fevers, ?seizures vs UTI vs aspiration, low suspicion for meningitis/ encephalitis based on prior similar presentations -RAMYA, ?hypovolumic vs sepsis medicated, no evidence of obstruction -Acute hypoxic respiratory distress -Lactic acidosis, seizure vs sepsis -?SJS vs drug reaction -H/o right sided Haemorrhagic CVA -Complex partial seizure disorder -HTN -HLD Plan: Patient well known to me from previous admissions. Has had similar presentation with AMS, hallucinations, fevers, was on broad spectrum antibiotics and IR guided LP and antibiotics were eventually tapered off. Also had MRI brain that was negative for concerns. EEG that was abnormal but with no epileptiform activity. During the admission, had recurrent fevers with AMS that improved after emperic zosyn but no clear etiology except for suspected aspiration was noted. Given similar presentations, with essentially negative neurological workup, unclear if her Fevers/WBC are related to seizures vs UTI vs aspiration rather than infectious neurological process, which seems less likely. ID input noted, discussed with Dr. Zafar. Aztreonam day 2, s/p additional dose of acyclovir on 01/23. Urine cx noted, Follow up ID recs. Skin sloughing, noted on prior admit when was recommended hydrocortisone cream by dermatology. 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 [facility] contact for possible transfer to burn unit,will follow. Zosyn added to allergies for now. Neurology input noted, Repeat EEG. Unclear if patient would beneift from continuous EEG monitoring. Will defer to neurology. Discussed with ICU, OG tube and resumption of tegretol. Depakote per neuro recs if unable to resume. Caution with new meds given h/o allergic reaction to AEDs Seizure precautions. Weaning trial per ICU. Renal input appreciated. Cr overall unchanged, renal US noted. Mojica, strict I/Os, avoid nephrotoxins, renal dosing of meds. DVTPPX heparin Dispo ICU level of care. Care co-ordinated with ICU team and RN. Total critical care time spent 37 min.
--- NOTE | 2019-01-24 10:21 | PN ---
Physical Exam: SUBJECTIVE: Patient seen and examined. Intubated and sedated. Pt with worsening blisters and sloughing skin. Afebrile. OBJECTIVE: Vital Signs Period Temp Pulse Resp BP Sys/Lewis Pulse Ox Last 24 Hr 98.2 F-100.4 F 90-115 20-38 94-114/55-79 98-100 Vital Signs Temp 98.2 F 01/24/19 10:00 Pulse 90 01/24/19 10:00 Resp 22 H 01/24/19 10:00 BP 100/64 01/24/19 10:00 Pulse Ox 100 01/23/19 23:47 Intake & Output 01/23/19 01/23/19 01/24/19 11:59 23:59 11:59 Intake Total 1323.8 1448 Output Total 500 250 Balance 823.8 1198 Weight 102.3 kg 104.837 kg Intake: IV 973.8 1348 DIPRIVAN - 1,000,000 mcg 150 288 In 100 ml @ 5 MCG/KG/MIN 3.239 mls/hr IVPB TITR JOSEF Rx#:[id number] LACTATED RINGERS SOLUTION 800 1000 1,000 ml In 1,000 ml @ 100 mls/hr IV ASDIR JOSEF Rx#:[id number] Sublimaze Injection - 500 23.8 60 Mcg In D5w - 90 ml @ 25 MCG/HR 5 mls/hr IVPB TITR JOSEF Rx#:[id number] IVPB 350 100 Output: Urine 500 250 Mojica 500 250 Other: Voiding Method Indwelling Catheter Indwelling Catheter Bowel Movement No No Height 1.75 m Body Mass Index (BMI) 33.3 Weight Measurement Method Built in [facility] Built in [facility] GENERAL: The patient is Sedated and [id number]/450/40/15/5 EYES: Miosed reacting b/l ENT: ET tube NECK: Trachea midline, full range of motion, supple. LUNGS: Mechanical breath sounds HEART: S1, S2 ABDOMEN: Soft, nontender, nondistended EXTREMITIES: Hyperemia over b/l thighs with positive nicolsky sign on thighs, LUE NEUROLOGICAL: Intubated and sedated, positive gag reflex, pupils reactive b/l SKIN: POsitive Nikolsky sign, sloughing of skin over thighs, UE, thighs and buttocks with hyperpigmented base Laboratory Results - last 24 hr 01/23/19 01/23/19 01/23/19 09:55 11:55 14:14 WBC RBC Hgb Hct MCV MCH MCHC RDW Plt Count MPV Absolute Neuts (auto) Neutrophils % Lymphocytes % Monocytes % Eosinophils % Basophils % Nucleated RBC % ESR Anticoagulation Therapy No Result Required. Puncture Site Right radial ABG pH 7.36 ABG pCO2 at Pt Temp 32.7 L ABG pO2 at Pt Temp 70.0 L ABG HCO3 17.8 L ABG O2 Sat (Measured) 92.4 L ABG O2 Content 16.7 ABG Base Excess -6.3 L Danie Test Positive O2 Delivery Device No Result Required. Oxygen Flow Rate 40 Vent Mode No Result Required. Vent Rate No Result Required. Mechanical Rate No Result Required. Pressure Support Vent No Result Required. Sodium Potassium Chloride Carbon Dioxide Anion Gap BUN Creatinine Est GFR (CKD-EPI)AfAm Est GFR (CKD-EPI)NonAf POC Glucometer 96 Random Glucose Calcium Phosphorus Magnesium Total Bilirubin AST ALT Alkaline Phosphatase Creatine Kinase Creatine Kinase Index CK-MB (CK-2) C-Reactive Protein Total Protein Albumin Ur Random Creatinine U Random Total Protein Ur Random Sodium Ur Random Urea Nitrogn Opiates Screen Negative Methadone Screen Negative Barbiturate Screen Negative Phencyclidine Screen Negative Ur Amphetamines Screen Negative MDMA (Ecstasy) Screen Negative Benzodiazepines Screen Negative Cocaine Screen Negative U Marijuana (THC) Screen Negative 01/23/19 01/23/19 01/23/19 18:00 18:00 18:00 WBC RBC Hgb Hct MCV MCH MCHC RDW Plt Count MPV Absolute Neuts (auto) Neutrophils % Lymphocytes % Monocytes % Eosinophils % Basophils % Nucleated RBC % ESR Anticoagulation Therapy Puncture Site ABG pH ABG pCO2 at Pt Temp ABG pO2 at Pt Temp ABG HCO3 ABG O2 Sat (Measured) ABG O2 Content ABG Base Excess Danie Test O2 Delivery Device Oxygen Flow Rate Vent Mode Vent Rate Mechanical Rate Pressure Support Vent Sodium Potassium Chloride Carbon Dioxide Anion Gap BUN Creatinine Est GFR (CKD-EPI)AfAm Est GFR (CKD-EPI)NonAf POC Glucometer Random Glucose Calcium Phosphorus Magnesium Total Bilirubin AST ALT Alkaline Phosphatase Creatine Kinase Creatine Kinase Index CK-MB (CK-2) C-Reactive Protein Total Protein Albumin Ur Random Creatinine 114.0 U Random Total Protein 68.6 H Ur Random Sodium 20 L Ur Random Urea Nitrogn Opiates Screen Methadone Screen Barbiturate Screen Phencyclidine Screen Ur Amphetamines Screen MDMA (Ecstasy) Screen Benzodiazepines Screen Cocaine Screen U Marijuana (THC) Screen 01/23/19 01/23/19 01/24/19 18:00 21:49 02:40 WBC RBC Hgb Hct MCV MCH MCHC RDW Plt Count MPV Absolute Neuts (auto) Neutrophils % Lymphocytes % Monocytes % Eosinophils % Basophils % Nucleated RBC % ESR Anticoagulation Therapy Puncture Site ABG pH ABG pCO2 at Pt Temp ABG pO2 at Pt Temp ABG HCO3 ABG O2 Sat (Measured) ABG O2 Content ABG Base Excess Danie Test O2 Delivery Device Oxygen Flow Rate Vent Mode Vent Rate Mechanical Rate Pressure Support Vent Sodium Potassium Chloride Carbon Dioxide Anion Gap BUN Creatinine Est GFR (CKD-EPI)AfAm Est GFR (CKD-EPI)NonAf POC Glucometer 85 85 Random Glucose Calcium Phosphorus Magnesium Total Bilirubin AST ALT Alkaline Phosphatase Creatine Kinase Creatine Kinase Index CK-MB (CK-2) C-Reactive Protein Total Protein Albumin Ur Random Creatinine U Random Total Protein Ur Random Sodium Ur Random Urea Nitrogn 543 Opiates Screen Methadone Screen Barbiturate Screen Phencyclidine Screen Ur Amphetamines Screen MDMA (Ecstasy) Screen Benzodiazepines Screen Cocaine Screen U Marijuana (THC) Screen 01/24/19 01/24/19 01/24/19 05:41 05:41 05:41 WBC 10.7 H RBC 4.51 Hgb 11.4 Hct 33.4 MCV 74.0 L MCH 25.2 L MCHC 34.0 RDW 18.4 H Plt Count 115 L D MPV 9.0 Absolute Neuts (auto) 8.9 H Neutrophils % 82.9 H Lymphocytes % 7.4 L D Monocytes % 3.2 L Eosinophils % 6.0 H D Basophils % 0.5 Nucleated RBC % 0 ESR 14 Anticoagulation Therapy Puncture Site ABG pH ABG pCO2 at Pt Temp ABG pO2 at Pt Temp ABG HCO3 ABG O2 Sat (Measured) ABG O2 Content ABG Base Excess Danie Test O2 Delivery Device Oxygen Flow Rate Vent Mode Vent Rate Mechanical Rate Pressure Support Vent Sodium 140 Potassium 3.9 Chloride 106 Carbon Dioxide 22 Anion Gap 12 BUN 92.9 H Creatinine 5.3 H Est GFR (CKD-EPI)AfAm 9.64 Est GFR (CKD-EPI)NonAf 8.32 POC Glucometer Random Glucose 98 Calcium 7.3 L Phosphorus 6.4 H Magnesium 2.2 Total Bilirubin 0.4 AST 28 ALT 35 Alkaline Phosphatase 53 Creatine Kinase 414 H Creatine Kinase Index 0.9 CK-MB (CK-2) 4.0 H C-Reactive Protein 27.7 H Total Protein 5.2 L Albumin 2.4 L Ur Random Creatinine U Random Total Protein Ur Random Sodium Ur Random Urea Nitrogn Opiates Screen Methadone Screen Barbiturate Screen Phencyclidine Screen Ur Amphetamines Screen MDMA (Ecstasy) Screen Benzodiazepines Screen Cocaine Screen U Marijuana (THC) Screen Active Medications Generic Name Dose Route Start Last Admin Trade Name Freq PRN Reason Stop Dose Admin Acetaminophen 1,000 mg 01/23/19 07:13 01/23/19 21:35 Ofirmev Injection - IVPB 1,000 mg Q6H PRN Administration FEVER Albuterol Sulfate 1 amp 01/23/19 08:00 01/24/19 08:49 Ventolin 0.083% Nebulizer Soln - NEB 1 amp RQID JOSEF Administration Albuterol/Ipratropium 1 amp 01/23/19 09:18 Duoneb - NEB Q6H PRN SHORTNESS OF BREATH Heparin Sodium (Porcine) 5,000 unit 01/22/19 22:00 01/24/19 09:48 Heparin - SQ 5,000 unit BID JOSEF Administration Propofol 1,000,000 mcg in 100 mls @ 3.239 mls/hr 01/23/19 11:15 01/24/19 09: 54 Diprivan - IVPB 40 mcg/kg/min TITR JOSEF 25.909 mls/hr Administration Protocol 5 MCG/KG/MIN Lactated Ringer's 1,000 ml in 1,000 mls @ 100 mls/hr 01/23/19 11:30 01/23/19 10:40 Lactated Ringers Solution IV 100 mls/hr ASDIR JOSEF Administration Aztreonam 1 gm/ Dextrose 50 mls @ 100 mls/hr 01/23/19 13:00 01/24/19 09:47 IVPB 100 mls/hr BID JOSEF Administration Fentanyl 500 mcg/ Dextrose 100 mls @ 5 mls/hr 01/23/19 13:45 01/24/19 06:19 IVPB 25 mcg/hr TITR JOSEF 5 mls/hr Administration Protocol 25 MCG/HR Timolol Maleate 1 drop 01/23/19 10:00 01/23/19 13:55 Timoptic 0.5% OU 1 drop DAILY JOSEF Administration Current Medications Acetaminophen (Ofirmev Injection -) 1,000 mg IVPB Q6H PRN PRN Reason: FEVER Last Admin: 01/23/19 21:35 Dose: 1,000 mg Albuterol Sulfate (Ventolin 0.083% Nebulizer Soln -) 1 amp NEB RQID JOSEF Last Admin: 01/24/19 08:49 Dose: 1 amp Albuterol/Ipratropium (Duoneb -) 1 amp NEB Q6H PRN PRN Reason: SHORTNESS OF BREATH Heparin Sodium (Porcine) (Heparin -) 5,000 unit SQ BID JOSEF Last Admin: 01/24/19 09:48 Dose: 5,000 unit Propofol (Diprivan -) 1,000,000 mcg in 100 mls @ 3.239 mls/hr IVPB TITR JOSEF; Protocol Last Admin: 01/24/19 09:54 Dose: 40 mcg/kg/min, 25.909 mls/hr Lactated Ringer's (Lactated Ringers Solution) 1,000 ml in 1,000 mls @ 100 mls/ hr IV ASDIR JOSEF Last Admin: 01/23/19 10:40 Dose: 100 mls/hr Aztreonam 1 gm/ Dextrose 50 mls @ 100 mls/hr IVPB BID JOSEF Last Admin: 01/24/19 09:47 Dose: 100 mls/hr Fentanyl 500 mcg/ Dextrose 100 mls @ 5 mls/hr IVPB TITR JOSEF; Protocol Last Admin: 01/24/19 06:19 Dose: 25 mcg/hr, 5 mls/hr Timolol Maleate (Timoptic 0.5%) 1 drop OU DAILY JOSEF Last Admin: 01/23/19 13:55 Dose: 1 drop Ambulatory Orders Nifedipine [Procardia Xl] 60 mg PO DAILY #30 tab 10/26/17 Timolol 0.5% [Timoptic 0.5%] 1 drop OU DAILY #1 bottle 10/26/17 Albuterol 0.083% Nebulizer Emmy [Ventolin 0.083% Nebulizer Soln -] 1 amp NEB RQID amp 11/03/18 Metoprolol Tartrate [Lopressor -] 100 mg PO BID 01/24/19 Oxcarbazepine 300 mg PO BID 01/24/19 Renal US-periportal edema, Echogenic R kidney relative to adjacent liver parenchyma of chronic medical renal disease. ASSESSMENT/PLAN: Pt is a 58 yof with PMhx of R hemorrhagic stroke, complex partial seizure disorder due to stroke, HTN, HLD, prolonged admission in 11/2018 with AMS, seizures, fevers, RAMYA admitted with AMS, fevers, RAMYA, now with tachypnea and hyperpigmented rashes with blisters and denuded skin #AMS, likely acute metabolic encephalopathy from sepsis/uremia (anion gap metabolic acidosis) Received zosyn in ED- pt had skin blisters with SJS in past from Zosyn Pt received medications for empiric meningitis Could also be post ictal NPO for now Elevate HOB Seizure precautions Fall precautions For LP today #SJS/Possible TEN Prior SJS with zosyn Could have neurologic symptoms Aggressive hydration ICU considering transfer to a tertiary center Pt intubated and sedated Pt also noted to be allergic to dilantin, phenytoin, consider steroids Pt reported symptoms started after dose of hydrochlorothiazide a day before presentation with n/v/ fever and then AMS #Tachypnea LIkely compensation in setting of metabolic acidosis Pt with oxygen supplementation Pt not retaining CO2, initially on Bipap, still altered, intubated #Sepsis secondary to UTI ID on board, based on prior cx and considering multiple allergies and renal function- Per ID will start- dapto 600 Q48hrs, Aztreonam 1g Q12h Urine cultures, bcx pending . LR #Anion Gap Metabolic acidosis Lactic acidosis- resolved Likely uremic with RAMYA With LR #RAMYA likely prerenal from reduced intake in setting of AMS/sepsis -FeNa-0.5%- prerenal LR @100mls/hr avoid nephrotoxins, renal dosing of meds renal consult Dr. Bennie Mojica, strict I/Os #Lactic acidosis resolved Could be related to seizures, R/O sepsis, #H/o right sided Hemorrhagic CVA s/p CT head #Complex partial seizure disorder Pt allergic SJS to keppra, phenytoin Pt on home oxcarbazine- Hold for now reported cross reactivity to carbamazepine with phenytoin #HTN Consider home lopressor to avoid withdrawal Pt could be tachycardic with sepsis and fever #HLD Not on statins at home Monitor #Elevated CPK Trend CPK Hydrate NPO DVTPPX heparin ICU up for possible transfer to [facility] to MICU by accepting physician- Dr Dooley Visit type - Emergency Visit Emergency Visit: Yes ED Registration Date: 01/22/19 Care time: The patient presented to the Emergency Department on the above date and was hospitalized for further evaluation of their emergent condition. - New Patient This patient is new to me today: No - Critical Care Critical Care patient: Yes Total Critical Care Time (in minutes): 40 Critical Care Statement: The care of this patient involved high complexity decision making to prevent further life threatening deterioration of the patient 's condition and/or to evaluate & treat vital organ system(s) failure or risk of failure. ATTENDING PHYSICIAN STATEMENT I saw and evaluated the patient. I reviewed the resident's note and discussed the case with the resident. I agree with the resident's findings and plan as documented. SUBJECTIVE: OBJECTIVE: ASSESSMENT AND PLAN:
--- NOTE | 2019-01-24 11:02 | PN ---
Teaching Attending Note Name of Resident: Mariam Costa ATTENDING PHYSICIAN STATEMENT I saw and evaluated the patient. I reviewed the resident's note and discussed the case with the resident. I agree with the resident's findings and plan as documented. SUBJECTIVE: Pt seen and examined in the ICU. Remains intubated, sedated. Fever curve down but still with rigors. Urine culture growing gram negative bacilli. More areas of sloughing. OBJECTIVE: Vital Signs Period Temp Pulse Resp BP Sys/Lewis Pulse Ox Last 24 Hr 98.2 F-100.4 F 90-115 20-38 96-114/55-79 98-100 Intake & Output 01/21/19 01/22/19 01/23/19 01/24/19 23:59 23:59 23:59 23:59 Intake Total 1323.8 1448 Output Total 200 500 250 Balance -200 823.8 1198 Weight 107.955 kg 102.3 kg 104.837 kg Gen: intubated, sedated Heart: RRR Lung: decreased breath sounds at the bases Abd: soft, nontender Ext: no edema CBC, BMP 01/24/19 05:41 01/24/19 05:41 Active Medications Acetaminophen (Ofirmev Injection -) 1,000 mg IVPB Q6H PRN PRN Reason: FEVER Last Admin: 01/23/19 21:35 Dose: 1,000 mg Albuterol Sulfate (Ventolin 0.083% Nebulizer Soln -) 1 amp NEB RQID JOSEF Last Admin: 01/24/19 08:49 Dose: 1 amp Albuterol/Ipratropium (Duoneb -) 1 amp NEB Q6H PRN PRN Reason: SHORTNESS OF BREATH Heparin Sodium (Porcine) (Heparin -) 5,000 unit SQ BID JOSEF Last Admin: 01/24/19 09:48 Dose: 5,000 unit Propofol (Diprivan -) 1,000,000 mcg in 100 mls @ 3.239 mls/hr IVPB TITR JOSEF; Protocol Last Admin: 01/24/19 09:54 Dose: 40 mcg/kg/min, 25.909 mls/hr Lactated Ringer's (Lactated Ringers Solution) 1,000 ml in 1,000 mls @ 100 mls/ hr IV ASDIR JOSEF Last Admin: 07/08/19 10:40 Dose: 100 mls/hr Aztreonam 1 gm/ Dextrose 50 mls @ 100 mls/hr IVPB BID JOSEF Last Admin: 01/24/19 09:47 Dose: 100 mls/hr Fentanyl 500 mcg/ Dextrose 100 mls @ 5 mls/hr IVPB TITR JOSEF; Protocol Last Admin: 01/24/19 06:19 Dose: 25 mcg/hr, 5 mls/hr Silver Sulfadiazine (Silvadene -) 1 applic TP DAILY [facility] Timolol Maleate (Timoptic 0.5%) 1 drop OU DAILY JOSEF Last Admin: 01/23/19 13:55 Dose: 1 drop ASSESSMENT AND PLAN: Acute Respiratory Failure r/o Martinez Sandeep Syndrome - ?Zosyn UTI Severe Sepsis Acute Kidney Injury Rhabdomyolysis Seizure Disorder h/o CVA - continue antibiotics per ID - f/u cultures - will attempt LP - continue IVF - monitor urine output, creatinine - after LP, hold sedation to assess mental status - spontaneous breathing trials as tolerated when mental status improved - wound care - monitor area of sloughing, transfer to burn unit if sloughing worse - DVT prophylaxis - continue ICU monitoring critical care time spent in reviewing chart, evaluating patient and formulating plan 35 min
--- NOTE | 2019-01-24 12:07 | PN ---
Progress Note (short form) - Note Progress Note: Renal follow up for RAMYA Pt seen and examined in the ICU intubated on vent via ET tube no overnight events making urine via olivas Vital Signs Temperature 98.2 F 01/24/19 10:00 Pulse Rate 90 01/24/19 10:00 Respiratory Rate 22 H 01/24/19 10:00 Blood Pressure 100/64 01/24/19 10:00 O2 Sat by Pulse Oximetry (%) 100 01/23/19 23:47 Intake & Output 01/21/19 01/22/19 01/23/19 01/24/19 23:59 23:59 23:59 23:59 Intake Total 1323.8 1448 Output Total 200 500 250 Balance -200 823.8 1198 Weight 107.955 kg 102.3 kg 104.837 kg Intubated and sedated ET tube in place neck supple RRR, NO M/R Dec BS Obese, NT/ND no LE edema skin peeling on left posterior thigh olivas in place CBC, BMP 01/24/19 05:41 01/24/19 05:41 Current Medications Acetaminophen (Ofirmev Injection -) 1,000 mg IVPB Q6H PRN PRN Reason: FEVER Last Admin: 01/23/19 21:35 Dose: 1,000 mg Albuterol Sulfate (Ventolin 0.083% Nebulizer Soln -) 1 amp NEB RQID JOSEF Last Admin: 01/24/19 11:21 Dose: 1 amp Albuterol/Ipratropium (Duoneb -) 1 amp NEB Q6H PRN PRN Reason: SHORTNESS OF BREATH Heparin Sodium (Porcine) (Heparin -) 5,000 unit SQ BID JOSEF Last Admin: 01/24/19 09:48 Dose: 5,000 unit Propofol (Diprivan -) 1,000,000 mcg in 100 mls @ 3.239 mls/hr IVPB TITR JOSEF; Protocol Last Admin: 01/24/19 09:54 Dose: 40 mcg/kg/min, 25.909 mls/hr Aztreonam 1 gm/ Dextrose 50 mls @ 100 mls/hr IVPB BID JOSEF Last Admin: 01/24/19 09:47 Dose: 100 mls/hr Fentanyl 500 mcg/ Dextrose 100 mls @ 5 mls/hr IVPB TITR JOSEF; Protocol Last Admin: 01/24/19 06:19 Dose: 25 mcg/hr, 5 mls/hr Lactated Ringer's (Lactated Ringers Solution) 1,000 ml in 1,000 mls @ 150 mls/ hr IV ASDIR JOSEF Last Admin: 01/24/19 12:31 Dose: 150 mls/hr Silver Sulfadiazine (Silvadene -) 1 applic TP DAILY JOSEF Last Admin: 01/24/19 12:43 Dose: 1 applic Timolol Maleate (Timoptic 0.5%) 1 drop OU DAILY JOSEF Last Admin: 01/23/19 13:55 Dose: 1 drop 58 year old woman with history of hemorragic CVA, seziure disorder, hypertension , hyperlipidemia who presented to the ED with disoreintatoin and found to have RAMYA. #RAMYA secondary to: intravascular volume depletion vs. ATN vs. ATN vs. acute GN #Altered mental status #Fever #Leukocytoiss #Suspected UTI. #Lactic acidosis #Elevated CK #Lactic acidosis/metabolic acidosis Renal function w/o recovery at this time urine studies consistent with pre-renal injury pt is non-oliguirc Continue aggressive isotonic fluids keep MAP > 65 Vent support as per ICU Abx as per ID f/u cultures awaiting transfer to tertiary care center prognosis is guarded Varun Avery DO
--- NOTE | 2019-01-24 12:26 | PROC ---
Lumbar Puncture Indication: R/o meningitis/encephalitis Risks and Benefits Explained: Yes Consent on Chart: Yes Sterile Technique: Yes Skin prep: Betadine Position: Right lateral decubitus Site: L4-L51 CSF Color, Appearance: Clear
[2019-01-24] MEDS ORDERED: PT OWN MED DRAWER 7, Y5N ONE ×2 (12:28→21:11)
[2019-01-24] MEDS: LACTATED RINGERS SOLUTION 1,000 ML/1,000 ML INFUS.BAG IV SCH (12:31)
[2019-01-24] MEDS: SILVER SULFADIAZINE 1% TOP CREAM 50 GM JAR TP SCH (12:43)
[2019-01-24] MEDS: TIMOLOL 0.5% OPHTHALMIC SOL 5 ML BOTTLE OU SCH (13:16)
--- NOTE | 2019-01-24 14:13 | PN ---
Progress Note (short form) - Note Progress Note: sedated, intubated temps improved s/p lp awaiting results better urine output today Vital Signs Period Temp Pulse Resp BP Sys/Lewis Pulse Ox Last 24 Hr 98.2 F-100.1 F 90-99 8-29 96-108/55-74 98-100 cor-rrr lungs decreased bs at bases abd soft,nt ext no edema +skin tear left upper thigh with adjacent blisteres bullae right lateral thigh small bulla on the abdomen CBC, BMP 01/24/19 05:41 01/24/19 05:41 Microbiology 01/23/19 18:00 Urine For Antigen Detection Legionella Antigen - Final 01/23/19 18:00 Urine For Antigen Detection Streptococcus pneumoniae Antigen (M - Final 01/22/19 18:00 Urine - Urine Clean Catch Urine Culture - Preliminary Lactose Fermenting Neg Bacilli 01/22/19 19:35 Blood - Peripheral Venous Blood Culture - Preliminary NO GROWTH OBTAINED AFTER 24 HOURS, INCUBATION TO CONTINUE FOR 4 DAYS. 01/22/19 19:35 Blood - Peripheral Venous Blood Culture - Preliminary NO GROWTH OBTAINED AFTER 24 HOURS, INCUBATION TO CONTINUE FOR 4 DAYS. a/p respiratory failure fevers- ?source s/p lP continue azactam for UTI bullous skin lesions- derm to see ARF- renal f/u, urine output improving d/w icu residents f/u LP results Problem List - Problems (1) Fever Code(s): R50.9 - FEVER, UNSPECIFIED Qualifiers: Fever type: unspecified Qualified Code(s): R50.9 - Fever, unspecified (2) UTI (urinary tract infection) Code(s): N39.0 - URINARY TRACT INFECTION, SITE NOT SPECIFIED (3) Skin rash Code(s): R21 - RASH AND OTHER NONSPECIFIC SKIN ERUPTION (4) VRE (vancomycin resistant enterococcus) culture positive Code(s): Z22.39 - CARRIER OF OTHER SPECIFIED BACTERIAL DISEASES
--- NOTE | 2019-01-24 14:46 | PN ---
Physical Exam: SUBJECTIVE: Patient seen and examined by me on 01/24/2019. No acute events overnight. Skin lesions worsening but patient in stable condition and ready for transfer to [facility] MICU as soon as a bed is made available. OBJECTIVE: Vital Signs Period Temp Pulse Resp BP Sys/Lewis Pulse Ox Last 24 Hr 98.2 F-100.1 F 90-99 8-29 96-108/55-74 98-100 GENERAL: Patient is sedated and not responsive to questions HEAD: Normal with no signs of trauma. EYES: Pupils equal, round and reactive to light, sclera anicteric, conjunctiva clear. EARS, NOSE, THROAT: Dry mucous membranes. LUNGS: Breath sounds equal, clear to auscultation bilaterally. No wheezes, and no crackles. HEART: Regular rate and rhythm, normal S1 and S2 without murmur ABDOMEN: Soft, nontender, not distended, normoactive bowel sounds, no guarding, no rebound, no masses. MUSCULOSKELETAL: No bony deformities UPPER EXTREMITIES: 2+ radial pulses, warm, well-perfused. No cyanosis. LOWER EXTREMITIES: 2+ pulses, warm, well-perfused. No peripheral edema. SKIN: sloughing skin on shins anteriorly with skin break down on the buttocks L> R, sloughing skin around knuckles, sloughing skin on thighs, sloughing skin on arms bilaterally Laboratory Results - last 24 hr 01/23/19 01/23/19 01/23/19 18:00 18:00 18:00 WBC RBC Hgb Hct MCV MCH MCHC RDW Plt Count MPV Absolute Neuts (auto) Neutrophils % Lymphocytes % Monocytes % Eosinophils % Basophils % Nucleated RBC % ESR Sodium Potassium Chloride Carbon Dioxide Anion Gap BUN Creatinine Est GFR (CKD-EPI)AfAm Est GFR (CKD-EPI)NonAf POC Glucometer Random Glucose Calcium Phosphorus Magnesium Total Bilirubin AST ALT Alkaline Phosphatase Creatine Kinase Creatine Kinase Index CK-MB (CK-2) C-Reactive Protein Total Protein Albumin Ur Random Creatinine 114.0 U Random Total Protein 68.6 H Ur Random Sodium 20 L Ur Random Urea Nitrogn 01/23/19 01/23/19 01/24/19 18:00 21:49 02:40 WBC RBC Hgb Hct MCV MCH MCHC RDW Plt Count MPV Absolute Neuts (auto) Neutrophils % Lymphocytes % Monocytes % Eosinophils % Basophils % Nucleated RBC % ESR Sodium Potassium Chloride Carbon Dioxide Anion Gap BUN Creatinine Est GFR (CKD-EPI)AfAm Est GFR (CKD-EPI)NonAf POC Glucometer 85 85 Random Glucose Calcium Phosphorus Magnesium Total Bilirubin AST ALT Alkaline Phosphatase Creatine Kinase Creatine Kinase Index CK-MB (CK-2) C-Reactive Protein Total Protein Albumin Ur Random Creatinine U Random Total Protein Ur Random Sodium Ur Random Urea Nitrogn 543 01/24/19 01/24/19 01/24/19 05:41 05:41 05:41 WBC 10.7 H RBC 4.51 Hgb 11.4 Hct 33.4 MCV 74.0 L MCH 25.2 L MCHC 34.0 RDW 18.4 H Plt Count 115 L D MPV 9.0 Absolute Neuts (auto) 8.9 H Neutrophils % 82.9 H Lymphocytes % 7.4 L D Monocytes % 3.2 L Eosinophils % 6.0 H D Basophils % 0.5 Nucleated RBC % 0 ESR 14 Sodium 140 Potassium 3.9 Chloride 106 Carbon Dioxide 22 Anion Gap 12 BUN 92.9 H Creatinine 5.3 H Est GFR (CKD-EPI)AfAm 9.64 Est GFR (CKD-EPI)NonAf 8.32 POC Glucometer Random Glucose 98 Calcium 7.3 L Phosphorus 6.4 H Magnesium 2.2 Total Bilirubin 0.4 AST 28 ALT 35 Alkaline Phosphatase 53 Creatine Kinase 414 H Creatine Kinase Index 0.9 CK-MB (CK-2) 4.0 H C-Reactive Protein 27.7 H Total Protein 5.2 L Albumin 2.4 L Ur Random Creatinine U Random Total Protein Ur Random Sodium Ur Random Urea Nitrogn 01/24/19 12:41 WBC RBC Hgb Hct MCV MCH MCHC RDW Plt Count MPV Absolute Neuts (auto) Neutrophils % Lymphocytes % Monocytes % Eosinophils % Basophils % Nucleated RBC % ESR Sodium Potassium Chloride Carbon Dioxide Anion Gap BUN Creatinine Est GFR (CKD-EPI)AfAm Est GFR (CKD-EPI)NonAf POC Glucometer 76 Random Glucose Calcium Phosphorus Magnesium Total Bilirubin AST ALT Alkaline Phosphatase Creatine Kinase Creatine Kinase Index CK-MB (CK-2) C-Reactive Protein Total Protein Albumin Ur Random Creatinine U Random Total Protein Ur Random Sodium Ur Random Urea Nitrogn Active Medications Generic Name Dose Route Start Last Admin Trade Name Freq PRN Reason Stop Dose Admin Acetaminophen 1,000 mg 01/23/19 07:13 01/23/19 21:35 Ofirmev Injection - IVPB 1,000 mg Q6H PRN Administration FEVER Albuterol Sulfate 1 amp 01/23/19 08:00 01/24/19 11:21 Ventolin 0.083% Nebulizer Soln - NEB 1 amp RQID JOSEF Administration Albuterol/Ipratropium 1 amp 01/23/19 09:18 Duoneb - NEB Q6H PRN SHORTNESS OF BREATH Heparin Sodium (Porcine) 5,000 unit 01/22/19 22:00 01/24/19 09:48 Heparin - SQ 5,000 unit BID JOSEF Administration Propofol 1,000,000 mcg in 100 mls @ 3.239 mls/hr 01/23/19 11:15 01/24/19 09: 54 Diprivan - IVPB 40 mcg/kg/min TITR JOSEF 25.909 mls/hr Administration Protocol 5 MCG/KG/MIN Aztreonam 1 gm/ Dextrose 50 mls @ 100 mls/hr 01/23/19 13:00 01/24/19 09:47 IVPB 100 mls/hr BID JOSEF Administration Fentanyl 500 mcg/ Dextrose 100 mls @ 5 mls/hr 01/23/19 13:45 01/24/19 06:19 IVPB 25 mcg/hr TITR JOSEF 5 mls/hr Administration Protocol 25 MCG/HR Lactated Ringer's 1,000 ml in 1,000 mls @ 150 mls/hr 01/24/19 11:12 01/24/19 12:31 Lactated Ringers Solution IV 150 mls/hr ASDIR JOSEF Administration Silver Sulfadiazine 1 applic 01/24/19 12:00 01/24/19 12:43 Silvadene - TP 1 applic DAILY JOSEF Administration Timolol Maleate 1 drop 01/23/19 10:00 01/24/19 13:16 Timoptic 0.5% OU 1 drop DAILY JOSEF Administration ASSESSMENT/PLAN: Pt. is a 58 y.o. F w/ PMHx. of hemorrhagic stroke w/ residual left-sided weakness, SJS(to Dilantin and Keppra) HTN, HLD, and complex partial seizures presents per sister with altered mental status 2/2 sepsis. Neurology #Acute Metabolic Encephalopathy 2/2 Sepsis likely 2/[address] unchanged from prior, chronic gliosis, chronic R. parietal lobe infarct CXR: no acute pathology UA: 3+ LE, 53 WBCs, 2+ protein, 2+ blood Urine culture pending Given Zosyn, Vancomycin, Ampicillin, Acyclovir and Ceftriaxone in ED Neurology consult (Dr. Mcrae) appreciated--> start Depacon 750mg BID(As Pt. is NPO), Psychiatric Eval. and MRI when feasible. c/w Aztreonam and Daptomycin ID Consult (Dr. Meadows) appreciated Pt. grew VRE in the urine in the past Aggressive IVF LA: 4.0--> 1.8 Seizure precautions LP today to complete encephalopathy workup and rule out meningitis as a cause of AMS - F/U CSF cultures, cell count, lactic acid, glucose, total protein Pulmonology #Acute Hypoxic Respiratory Failure Pt. intubated and sedated on Propofol and Fentanyl drips c/w Duonebs PRN and Albuterol RQID maintain SpO2 above 90% Will attempt to wean sedation as tolerated Nephrology #Acute Renal Failure 2/2 UTI Pt. noted to have Cr. around 0.9 on discharge one month ago, now currently 5.4 UA noted as above likely component of hypovolemia and UTI FeNA 0.7% consistent with pre-renal cause of renal failure (ie sepsis/ hypovolemia) Renal US unremarkable(echogenic right kidney indicative of chronic renal disease ), noted some non-specific periportal edema c/w IVF c/w Abx. as above Nephrology consult (Dr. 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 Silvadene- apply daily to wounds Cardiovascular #HTN #HLD Trop Negative Gastrointestinal No issues at this time, however if there is prolonged intubation would strongly consider starting Protionix as stress ulcer prophylaxis FEN LR @ 100 monitor electrolytes and replete as needed NPO DVT Ppx. Hep SQ BID Visit type - Emergency Visit Emergency Visit: Yes ED Registration Date: 01/22/19 Care time: The patient presented to the Emergency Department on the above date and was hospitalized for further evaluation of their emergent condition. - New Patient This patient is new to me today: Yes Date on this admission: 01/24/19 - Critical Care Critical Care patient: Yes Total Critical Care Time (in minutes): 36 Critical Care Statement: The care of this patient involved high complexity decision making to prevent further life threatening deterioration of the patient 's condition and/or to evaluate & treat vital organ system(s) failure or risk of failure. ATTENDING PHYSICIAN STATEMENT I saw and evaluated the patient. I reviewed the resident's note and discussed the case with the resident. I agree with the resident's findings and plan as documented. SUBJECTIVE: OBJECTIVE: ASSESSMENT AND PLAN:
[2019-01-24 15:22] LABS: CSF APPEARANCE CLEAR; CSF COLOR COLORLESS; CSF WBC 7
[2019-01-24 15:35] LABS: BF GLUCOSE (CSF ONLY) 58 mg/dL (40-70)
[2019-01-24] MEDS: VALPROATE SODIUM 500 MG/5 ML VIAL IVPB SCH (21:13)
[2019-01-25] MEDS ORDERED: ACYCLOVIR INJECTION 500 MG in DEXTROSE 5%-WATER - 100 ML IVPB ONE (02:00)
[2019-01-25] MEDS ORDERED: ACYCLOVIR INJECTION 300 MG in DEXTROSE 5%-WATER - 100 ML IVPB SCH (02:00)
[2019-01-25] MEDS ORDERED: PT OWN MED DRAWER 7, Y5N ONE ×3 (03:22→21:12)
[2019-01-25 06:49] LABS: HEMATOCRIT 33.5 % (32.4-45.2); HEMOGLOBIN 11.3 GM/dL (10.7-15.3); MCH 25.1 pg (25.7-33.7); MCHC 33.6 g/dl (32.0-36.0); MEAN CELL VOLUME 74.6 fl (80-96); MEAN PLT VOLUME 9.1 fl (7.5-11.1); PLATELET COUNT 113 K/MM3 (134-434); RBC 4.49 M/mm3 (3.60-5.2); RDW 18.1 % (11.6-15.6); WHITE BLOOD COUNT 8.6 K/mm3 (4.0-10.0)
[2019-01-25 07:47] LABS: ALBUMIN 2.1 g/dl (3.4-5.0); BILIRUBIN,TOTAL 0.5 mg/dL (0.2-1); BLOOD UREA NITROGEN 85.8 mg/dL (7-18); CALCIUM 7.8 mg/dL (8.5-10.1); CREATININE 4.1 mg/dL (0.55-1.3); MAGNESIUM 2.7 mg/dL (1.8-2.4); PHOSPHOROUS 5.3 mg/dL (2.5-4.9); POTASSIUM 3.7 mmol/L (3.5-5.1); TOT PROT 4.8 g/dl (6.4-8.2)
[2019-01-25] MEDS: ALBUTEROL SO4 0.083% IH SOL 2.5 MG/3 ML VIAL.NEB. NEB SCH ×4 (08:06→21:10)
--- NOTE | 2019-01-25 08:59 | PN ---
Progress Note (short form) - Note Progress Note: Neurology CHIEF COMPLAINT: AMS, fever HISTORY OF PRESENT ILLNESS: 58yo woman with a PMH of hemorrhagic stroke w/ residual left-sided weakness, HTN , HLD, complex partial seizures who presented with AMS, fever, and shaking on day of admission. Per notes, the sister reported that the patient was in her usual state of health when she went with the sister and mother the day prior to admission to tour a SNF; on the way home, she reported that she felt nauseated with an episode of vomiting. Otherwise, she has had no complaints recently. The day of admission, her sister noticed that the pt was "lethargic" and shaking as well as poorly responsive. She was unable to complete a conversation. The sister helped give her medications that morning but was concerned that she was acting strangely. Ct head was completed without acute changes. Patient found to have fever on admission with RAMYA and tachypnea, facemask in place. EEG ordered to evaluate for any abnormal blood form activity. The patient was on Tegretol but is not currently able to take by mouth. Reportedly with allergies to Keppra and Dilantin, therefore recommended Depakote, IV formulation 750 mg twice a day. Patient on propofol sedation in ICU which also serves to prevent seizure activity. No abnormal movement during my evaluation. Intubated, ventilated. LP results reviewed, 7 WBC, increased protein normal glucose. Discussed with ID, suspicion for viral [employer] infection, patient with limited exam , we felt should continued Acyclovir. Though mindful of kidney function, her presentation and results lends itself continuing infectious treatment. Ordered repeat CT head last night for this AM and no further changes noted. Awoke to voice today, not following commands but turns head and pupils responsive. Improvement in exam from yesterday. Allergies levetiracetam [From Keppra] Adverse Reaction (Verified 01/22/19 14:25) phenytoin sodium [From Dilantin] Adverse Reaction (Verified 01/22/19 14:25) phenytoin sodium extended [From Dilantin] Adverse Reaction (Verified 01/22/19 14 :25) Active Medications Acetaminophen (Ofirmev Injection -) 1,000 mg IVPB Q6H PRN PRN Reason: FEVER Last Admin: 01/23/19 21:35 Dose: 1,000 mg Albuterol Sulfate (Ventolin 0.083% Nebulizer Soln -) 1 amp NEB RQID JOSEF Last Admin: 01/24/19 21:00 Dose: 1 amp Albuterol/Ipratropium (Duoneb -) 1 amp NEB Q6H PRN PRN Reason: SHORTNESS OF BREATH Heparin Sodium (Porcine) (Heparin -) 5,000 unit SQ BID JOSEF Last Admin: 01/24/19 21:13 Dose: 5,000 unit Propofol (Diprivan -) 1,000,000 mcg in 100 mls @ 3.239 mls/hr IVPB TITR [facility]; Protocol Last Admin: 01/24/19 23:35 Dose: 40 mcg/kg/min, 25.909 mls/hr Aztreonam 1 gm/ Dextrose 50 mls @ 100 mls/hr IVPB BID JOSEF Last Admin: 01/24/19 21:12 Dose: 100 mls/hr Fentanyl 500 mcg/ Dextrose 100 mls @ 5 mls/hr IVPB TITR [facility]; Protocol Last Titration: 01/24/19 12:30 Dose: 0 mcg/hr, 0 mls/hr Lactated Ringer's (Lactated Ringers Solution) 1,000 ml in 1,000 mls @ 150 mls/ hr IV ASDIR JOSEF Last Admin: 01/24/19 12:31 Dose: 150 mls/hr Acyclovir 700 mg/ Dextrose 114 mls @ 100 mls/hr IVPB Q24H JOSEF Pantoprazole Sodium (Protonix Iv) 40 mg IVPUSH DAILY [facility] Silver Sulfadiazine (Silvadene -) 1 applic TP DAILY [facility] Last Admin: 01/24/19 12:43 Dose: 1 applic Timolol Maleate (Timoptic 0.5%) 1 drop OU DAILY [facility] Last Admin: 01/24/19 13:16 Dose: 1 drop Valproate Sodium (Depacon Injection -) 750 mg IVPB BID [facility] Last Admin: 01/24/19 21:13 Dose: 750 mg PHYSICAL EXAMINATION Vital Signs Period Temp Pulse Resp BP Sys/Lewis Pulse Ox Last 24 Hr 97.4 F-99.0 F 75-103 8-22 96-128/62-89 100-100 GENERAL:On sedation, on ventilator HEAD: Normal with no signs of trauma. EYES: Pupils response to light , sclera anicteric, conjunctiva clear. No lid lag. EARS, NOSE, THROAT: Ears normal, nares patent, oropharynx clear without exudates. Moist mucous membranes. LUNGS: Mechanical breath sounds HEART: Regular rate and rhythm, normal S1 and S2 without murmur, rub or gallop. ABDOMEN: Normoactive bowel sounds EXTREMITIES: 2+ pulses, warm, well-perfused. No cyanosis. No clubbing. No peripheral edema. NEUROLOGICAL: opens eyes to voice but not following commands, responds to pain, moving head, no abnormal motor activity SKIN: Warm, dry, normal turgor, no rashes or lesions noted, normal capillary refill. CBCD WBC 10.7 K/mm3 (4.0-10.0) H 01/24/19 05:41 RBC 4.51 M/mm3 (3.60-5.2) 01/24/19 05:41 Hgb 11.4 GM/dL (10.7-15.3) 01/24/19 05:41 Hct 33.4 % (32.4-45.2) 01/24/19 05:41 MCV 74.0 fl (80-96) L 01/24/19 05:41 MCHC 34.0 g/dl (32.0-36.0) 01/24/19 05:41 RDW 18.4 % (11.6-15.6) H 01/24/19 05:41 Plt Count 115 K/MM3 (134-434) L D 01/24/19 05:41 MPV 9.0 fl (7.5-11.1) 01/24/19 05:41 CMP Sodium 140 mmol/L (136-145) 01/24/19 05:41 Potassium 3.9 mmol/L (3.5-5.1) 01/24/19 05:41 Chloride 106 mmol/L (98-107) 01/24/19 05:41 Carbon Dioxide 22 mmol/L (21-32) 01/24/19 05:41 Anion Gap 12 MMOL/L (8-16) 01/24/19 05:41 BUN 92.9 mg/dL (7-18) H 01/24/19 05:41 Creatinine 5.3 mg/dL (0.55-1.3) H 01/24/19 05:41 Random Glucose 98 mg/dL (74-106) 01/24/19 05:41 Calcium 7.3 mg/dL (8.5-10.1) L 01/24/19 05:41 Total Bilirubin 0.4 mg/dL (0.2-1) 01/24/19 05:41 AST 28 U/L (15-37) 01/24/19 05:41 ALT 35 U/L (13-61) 01/24/19 05:41 Alkaline Phosphatase 53 U/L (45-117) 01/24/19 05:41 Total Protein 5.2 g/dl (6.4-8.2) L 01/24/19 05:41 Albumin 2.4 g/dl (3.4-5.0) L 01/24/19 05:41 CARDIAC ENZYMES Creatine Kinase 414 U/L (26-192) H 01/24/19 05:41 Troponin I < 0.02 ng/ml (0.00-0.05) 01/22/19 15:50 ASSESSMENT/PLAN: 58yo woman with a PMH of hemorrhagic stroke w/ residual left-sided weakness, HTN , HLD, complex partial seizures who presented with AMS, fever, and shaking on day of admission. Per notes, the sister reported that the patient was in her usual state of health when she went with the sister and mother the day prior to admission to tour a SNF; on the way home, she reported that she felt nauseated with an episode of vomiting. Otherwise, she has had no complaints recently. The day of admission, her sister noticed that the pt was "lethargic" and shaking as well as poorly responsive. She was unable to complete a conversation. The sister helped give her medications that morning but was concerned that she was acting strangely. Ct head was completed without acute changes. Patient found to have fever on admission with RAMYA and tachypnea, facemask in place. EEG ordered to evaluate for any abnormal blood form activity. The patient was on Tegretol but is not currently able to take by mouth. Reportedly with allergies to Keppra and Dilantin, therefore recommended Depakote, IV formulation 750 mg twice a day. Patient on propofol sedation in ICU which also serves to prevent seizure activity. No abnormal movement during my evaluation. Intubated, ventilated. LP results reviewed, 7 WBC, increased protein normal glucose. Discussed with ID, suspicion for viral [employer] infection, patient with limited exam , we felt should continued Acyclovir. Though mindful of kidney function, her presentation and results lends itself continuing infectious treatment. Ordered repeat CT head last night for this AM and no further changes noted. Awoke to voice today, not following commands but turns head and pupils responsive. Improvement in exam from yesterday. ABx per ID, follow up ID rec'd. Follow up infectious labs. Maintain adequate hydration. Monitor electrolytes, correction of RAMYA. MRI brain when able. Wean vent as able. Critical care time 40mins.
--- NOTE | 2019-01-25 09:10 | PN ---
Physical Exam: SUBJECTIVE: Patient seen and examined. Off sedation. Responding to commands, able to move LLE and RUE (with tremors). No LE movements noted. Per ICU has been tolerating CPAP and being off sedation for up to 30mins OBJECTIVE: Vital Signs Period Temp Pulse Resp BP Sys/Lewis Pulse Ox Last 24 Hr 97.4 F-99.0 F 75-103 8-22 96-128/62-89 100-100 Vital Signs Temp 97.4 F L 01/25/19 06:00 Pulse 88 01/25/19 06:00 Resp 20 01/25/19 08:06 BP 96/67 01/25/19 06:00 Pulse Ox 100 01/25/19 07:52 Intake & Output 01/24/19 01/24/19 01/25/19 11:59 23:59 11:59 Intake Total 1448 1803 2338 Output Total 250 1350 900 Balance 2694 297 3624 Weight 104.837 kg 104.78 kg 104.871 kg Intake: IV 1348 1703 2088 DIPRIVAN - 1,000,000 mcg 288 213 288 In 100 ml @ 5 MCG/KG/MIN 3.239 mls/hr IVPB TITR JOSEF Rx#:[id number] LACTATED RINGERS SOLUTION 1000 1,000 ml In 1,000 ml @ 100 mls/hr IV ASDIR JOSEF Rx#:[id number] LACTATED RINGERS SOLUTION 1465 1800 1,000 ml In 1,000 ml @ 150 mls/hr IV ASDIR JOSEF Rx#:[id number] Sublimaze Injection - 500 60 25 Mcg In D5w - 90 ml @ 25 MCG/HR 5 mls/hr IVPB TITR JOSEF Rx#:[id number] IVPB 100 100 250 Output: Urine 250 1350 900 Mojica 250 1350 900 Other: Voiding Method Indwelling Catheter Indwelling Catheter Indwelling Catheter Bowel Movement No No No Height 1.75 m Body Mass Index (BMI) 34.1 Weight Measurement Method [facility] in [facility] GENERAL: The patient is off sedation, intubated- CPAP 20/40%/ 6 HEAD: Normal with no signs of trauma. EYES: PERRL, extraocular movements intact, sclera anicteric ENT: ET tube in place LUNGS: Breath sounds equal, clear to auscultation bilaterally, no wheezes, no crackles HEART: Regular rate and rhythm, S1, S2 ABDOMEN: Soft, nontender, obese, normoactive bowel sounds EXTREMITIES: Hyperemia over bilateral thighs. Sloughed skin now dry. New blisters on LUE, NEUROLOGICAL: Off sedation, obeying commands, gag reflex no noted. Movement noted on REs, none on LEs SKIN: New bullae, old dry sloughed skin CBC, BMP 01/25/19 05:25 01/25/19 05:25 Laboratory Results - last 24 hr 01/24/19 01/24/19 01/24/19 12:30 12:41 17:11 WBC RBC Hgb Hct MCV MCH MCHC RDW Plt Count MPV Sodium Potassium Chloride Carbon Dioxide Anion Gap BUN Creatinine Est GFR (CKD-EPI)AfAm Est GFR (CKD-EPI)NonAf POC Glucometer 76 77 Random Glucose Calcium Phosphorus Magnesium Total Bilirubin AST ALT Alkaline Phosphatase Total Protein Albumin CSF Appearance Clear CSF Color Colorless CSF WBC 7 CSF RBC 1 CSF Neutrophils No Result Required. CSF Lymphocytes No Result Required. CSF Eosinophils No Result Required. CSF Basophils No Result Required. CSF Macrophages No Result Required. CSF Plasma Cells No Result Required. CSF Diff Comment Tube #4 CSF Comment No Result Required. CSF Glucose 58 CSF Total Protein 58 H 01/24/19 01/25/19 01/25/19 21:38 04:15 05:25 WBC 8.6 RBC 4.49 Hgb 11.3 Hct 33.5 MCV 74.6 L MCH 25.1 L MCHC 33.6 RDW 18.1 H Plt Count 113 L MPV 9.1 Sodium Potassium Chloride Carbon Dioxide Anion Gap BUN Creatinine Est GFR (CKD-EPI)AfAm Est GFR (CKD-EPI)NonAf POC Glucometer 68 86 Random Glucose Calcium Phosphorus Magnesium Total Bilirubin AST ALT Alkaline Phosphatase Total Protein Albumin CSF Appearance CSF Color CSF WBC CSF RBC CSF Neutrophils CSF Lymphocytes CSF Eosinophils CSF Basophils CSF Macrophages CSF Plasma Cells CSF Diff Comment CSF Comment CSF Glucose CSF Total Protein 01/25/19 01/25/19 05:25 07:31 WBC RBC Hgb Hct MCV MCH MCHC RDW Plt Count MPV Sodium 144 Potassium 3.7 Chloride 111 H Carbon Dioxide 23 Anion Gap 10 BUN 85.8 H Creatinine 4.1 H Est GFR (CKD-EPI)AfAm 13.15 Est GFR (CKD-EPI)NonAf 11.35 POC Glucometer 73 Random Glucose 79 Calcium 7.8 L Phosphorus 5.3 H Magnesium 2.7 H Total Bilirubin 0.5 AST 15 ALT 26 Alkaline Phosphatase 64 Total Protein 4.8 L Albumin 2.1 L CSF Appearance CSF Color CSF WBC CSF RBC CSF Neutrophils CSF Lymphocytes CSF Eosinophils CSF Basophils CSF Macrophages CSF Plasma Cells CSF Diff Comment CSF Comment CSF Glucose CSF Total Protein Active Medications Generic Name Dose Route Start Last Admin Trade Name Freq PRN Reason Stop Dose Admin Acetaminophen 1,000 mg 01/23/19 07:13 01/23/19 21:35 Ofirmev Injection - IVPB 1,000 mg Q6H PRN Administration FEVER Albuterol Sulfate 1 amp 01/23/19 08:00 01/24/19 21:00 Ventolin 0.083% Nebulizer Soln - NEB 1 amp RQID JOSEF Administration Albuterol/Ipratropium 1 amp 01/23/19 09:18 Duoneb - NEB Q6H PRN SHORTNESS OF BREATH Heparin Sodium (Porcine) 5,000 unit 01/22/19 22:00 01/24/19 21:13 Heparin - SQ 5,000 unit BID JOSEF Administration Propofol 1,000,000 mcg in 100 mls @ 3.239 mls/hr 01/23/19 11:15 01/24/19 23: 35 Diprivan - IVPB 40 mcg/kg/min TITR JOSEF 25.909 mls/hr Administration Protocol 5 MCG/KG/MIN Aztreonam 1 gm/ Dextrose 50 mls @ 100 mls/hr 01/23/19 13:00 01/24/19 21:12 IVPB 100 mls/hr BID JOSEF Administration Fentanyl 500 mcg/ Dextrose 100 mls @ 5 mls/hr 01/23/19 13:45 01/24/19 12:30 IVPB 0 mcg/hr TITR JOSEF 0 mls/hr Titration Protocol 25 MCG/HR Lactated Ringer's 1,000 ml in 1,000 mls @ 150 mls/hr 01/24/19 11:12 01/24/19 12:31 Lactated Ringers Solution IV 150 mls/hr ASDIR JOSEF Administration Acyclovir 700 mg/ Dextrose 114 mls @ 100 mls/hr 01/25/19 22:00 IVPB Q24H JOSEF Pantoprazole Sodium 40 mg 01/25/19 10:00 Protonix Iv IVPUSH DAILY JOSEF Silver Sulfadiazine 1 applic 01/24/19 12:00 01/24/19 12:43 Silvadene - TP 1 applic DAILY JOSEF Administration Timolol Maleate 1 drop 01/23/19 10:00 01/24/19 13:16 Timoptic 0.5% OU 1 drop DAILY JOSEF Administration Valproate Sodium 750 mg 01/24/19 22:00 01/24/19 21:13 Depacon Injection - IVPB 750 mg BID JOSEF Administration Current Medications Acetaminophen (Ofirmev Injection -) 1,000 mg IVPB Q6H PRN PRN Reason: FEVER Last Admin: 01/23/19 21:35 Dose: 1,000 mg Albuterol Sulfate (Ventolin 0.083% Nebulizer Soln -) 1 amp NEB RQID JOSEF Last Admin: 01/24/19 21:00 Dose: 1 amp Albuterol/Ipratropium (Duoneb -) 1 amp NEB Q6H PRN PRN Reason: SHORTNESS OF BREATH Heparin Sodium (Porcine) (Heparin -) 5,000 unit SQ BID JOSEF Last Admin: 01/24/19 21:13 Dose: 5,000 unit Propofol (Diprivan -) 1,000,000 mcg in 100 mls @ 3.239 mls/hr IVPB TITR JOSEF; Protocol Last Admin: 01/24/19 23:35 Dose: 40 mcg/kg/min, 25.909 mls/hr Aztreonam 1 gm/ Dextrose 50 mls @ 100 mls/hr IVPB BID JOSEF Last Admin: 01/24/19 21:12 Dose: 100 mls/hr Fentanyl 500 mcg/ Dextrose 100 mls @ 5 mls/hr IVPB TITR JOSEF; Protocol Last Titration: 01/24/19 12:30 Dose: 0 mcg/hr, 0 mls/hr Lactated Ringer's (Lactated Ringers Solution) 1,000 ml in 1,000 mls @ 150 mls/ hr IV ASDIR JOSEF Last Admin: 01/24/19 12:31 Dose: 150 mls/hr Acyclovir 700 mg/ Dextrose 114 mls @ 100 mls/hr IVPB Q24H JOSEF Pantoprazole Sodium (Protonix Iv) 40 mg IVPUSH DAILY JOSEF Silver Sulfadiazine (Silvadene -) 1 applic TP DAILY JOSEF Last Admin: 01/24/19 12:43 Dose: 1 applic Timolol Maleate (Timoptic 0.5%) 1 drop OU DAILY [facility] Last Admin: 01/24/19 13:16 Dose: 1 drop Valproate Sodium (Depacon Injection -) 750 mg IVPB BID [facility] Last Admin: 01/24/19 21:13 Dose: 750 mg Ambulatory Orders Nifedipine [Procardia Xl] 60 mg PO DAILY #30 tab 10/26/17 Timolol 0.5% [Timoptic 0.5%] 1 drop OU DAILY #1 bottle 10/26/17 Albuterol 0.083% Nebulizer Emmy [Ventolin 0.083% Nebulizer Soln -] 1 amp NEB RQID amp 11/03/18 Metoprolol Tartrate [Lopressor -] 100 mg PO BID 01/24/19 Oxcarbazepine 300 mg PO BID 01/24/19 CT head 01/25_ chronic parietal infarct noted, no interval change. Microbiology 01/24/19 12:30 Cerebral Spinal Fluid - Lumbar Puncture Gram Stain - Final 01/24/19 12:30 Cerebral Spinal Fluid - Lumbar Puncture CSF Culture - Preliminary 01/22/19 18:00 Urine - Urine Clean Catch Urine Culture - Final Escherichia Coli 01/22/19 19:35 Blood - Peripheral Venous Blood Culture - Preliminary NO GROWTH OBTAINED AFTER 48 HOURS, INCUBATION TO CONTINUE FOR 3 DAYS. 01/22/19 19:35 Blood - Peripheral Venous Blood Culture - Preliminary NO GROWTH OBTAINED AFTER 48 HOURS, INCUBATION TO CONTINUE FOR 3 DAYS. 01/24/19 12:30 Cerebral Spinal Fluid - Lumbar Puncture Viral Culture - Preliminary 01/23/19 18:00 Urine For Antigen Detection Legionella Antigen - Final 01/23/19 18:00 Urine For Antigen Detection Streptococcus pneumoniae Antigen (M - Final Renal US-periportal edema, Echogenic R kidney relative to adjacent liver parenchyma of chronic medical renal disease. ASSESSMENT/PLAN: Pt is a 58 yof with PMhx of R hemorrhagic stroke, complex partial seizure disorder due to stroke, HTN, HLD, prolonged admission in 11/2018 with AMS, seizures, fevers, RAMYA admitted with AMS, fevers, RAMYA, now with tachypnea and hyperpigmented rashes with blisters and denuded skin #AMS, Pt had been intubated to protect airway and for transfer to tertiary center, able to obey commands, pending extubation today likely acute metabolic encephalopathy from sepsis/uremia (anion gap metabolic acidosis) Received zosyn in ED- pt had skin blisters with SJS in past from Zosyn Pt received medications for empiric meningitis Could also be post ictal NPO for now Elevate HOB Seizure precautions Fall precautions LP -probably suggestive of viral menigitis--glu 58 (nl->45), total protein 58 ( increased), CSF to plasma glu ratio 0.59 (should be <0.40 in viral meningitis, but could be affected by medications), WBC-7, RBC-1 Possible viral meningitis Cont acyclovir 01/24 L sided weakness Pt moving only R extremities Repeat Head CT -negative for acute pathology #SJS/Possible TEN Prior SJS with zosyn Could have neurologic symptoms Aggressive hydration ICU considering transfer to a tertiary center Pt intubated and sedated Pt also noted to be allergic to dilantin, phenytoin, consider steroids Pt reported symptoms started after dose of hydrochlorothiazide a day before presentation with n/v/ fever and then AMS Pending derm eval #Tachypnea pt initially with metabolic acidosis resolved on intubation #Sepsis secondary to UTI intially on dapto 600 Q48hrs, Aztreonam 1g Q12h, now only on aztreonam since 01/23 Urine cultures-E.coli-pansensitive. Pt also on acyclovir for possible viral meningitis LR #Anion Gap Metabolic acidosis resolved Lactic acidosis- resolved Likely uremic with RAMYA With LR #RAMYA likely prerenal from reduced intake in setting of AMS/sepsis -FeNa-0.5%- prerenal LR @100mls/hr avoid nephrotoxins, renal dosing of meds renal consult Dr. Bennie Mojica, strict I/Os #Lactic acidosis resolved Could be related to seizures, R/O sepsis, #H/o right sided Hemorrhagic CVA s/p CT head -negative #Complex partial seizure disorder Pt allergic SJS to keppra, phenytoin Pt on home oxcarbazine- Hold for now reported cross reactivity to carbamazepine with phenytoin #HTN Consider home lopressor to avoid withdrawal Pt could be tachycardic with sepsis and fever #HLD Not on statins at home Monitor #Elevated CPK Trended down Hydrate NPO Cont ICU mx For possible transfer to tertiary center- ICU team For extubation Visit type - Emergency Visit Emergency Visit: Yes ED Registration Date: 01/22/19 Care time: The patient presented to the Emergency Department on the above date and was hospitalized for further evaluation of their emergent condition. - New Patient This patient is new to me today: No - Critical Care Critical Care patient: Yes Total Critical Care Time (in minutes): 38 Critical Care Statement: The care of this patient involved high complexity decision making to prevent further life threatening deterioration of the patient 's condition and/or to evaluate & treat vital organ system(s) failure or risk of failure. - Discharge Referral Referred to [facility] No ATTENDING PHYSICIAN STATEMENT I saw and evaluated the patient. I reviewed the resident's note and discussed the case with the resident. I agree with the resident's findings and plan as documented. SUBJECTIVE: OBJECTIVE: ASSESSMENT AND PLAN:
--- NOTE | 2019-01-25 09:42 | PN ---
Progress Note (short form) - Note Progress Note: arousable, sedation is off remains intubated Vital Signs Period Temp Pulse Resp BP Sys/Lewis Pulse Ox Last 24 Hr 97.4 F-99.0 F 75-103 8-22 96-128/62-89 100-100 cor-rrr lungs decreased bs at bases abd soft,nt ext no edema +skin tear left upper thigh with adjacent blisteres bullae right lateral thigh small bulla on the abdomen bullae left arm CBC, BMP 01/25/19 05:25 01/25/19 05:25 Laboratory Tests 01/24/19 12:30 CSF WBC 7 CSF RBC 1 CSF Glucose 58 CSF Total Protein 58 H Microbiology 01/24/19 12:30 Cerebral Spinal Fluid - Lumbar Puncture Gram Stain - Final 01/24/19 12:30 Cerebral Spinal Fluid - Lumbar Puncture CSF Culture - Preliminary 01/22/19 18:00 Urine - Urine Clean Catch Urine Culture - Final Escherichia Coli 01/22/19 19:35 Blood - Peripheral Venous Blood Culture - Preliminary NO GROWTH OBTAINED AFTER 48 HOURS, INCUBATION TO CONTINUE FOR 3 DAYS. 01/22/19 19:35 Blood - Peripheral Venous Blood Culture - Preliminary NO GROWTH OBTAINED AFTER 48 HOURS, INCUBATION TO CONTINUE FOR 3 DAYS. 01/24/19 12:30 Cerebral Spinal Fluid - Lumbar Puncture Viral Culture - Preliminary 01/23/19 18:00 Urine For Antigen Detection Legionella Antigen - Final 01/23/19 18:00 Urine For Antigen Detection Streptococcus pneumoniae Antigen (M - Final a/p respiratory failure fevers- resolved LP with 7 WBC- will continue acyclovir for possible viral [employer] disease- now day # 3- adjusted for ARF- HSV PCR pending continue azactam for ecoli UTI bullous skin lesions- derm to see ARF- renal f/u, urine output improving d/w icu residents plan for transfer to [facility] still in place, waiting for bed f/u LP results Problem List - Problems (1) Fever Code(s): R50.9 - FEVER, UNSPECIFIED Qualifiers: Fever type: unspecified Qualified Code(s): R50.9 - Fever, unspecified (2) UTI (urinary tract infection) Code(s): N39.0 - URINARY TRACT INFECTION, SITE NOT SPECIFIED (3) Skin rash Code(s): R21 - RASH AND OTHER NONSPECIFIC SKIN ERUPTION (4) VRE (vancomycin resistant enterococcus) culture positive Code(s): Z22.39 - CARRIER OF OTHER SPECIFIED BACTERIAL DISEASES
[2019-01-25] MEDS: VALPROATE SODIUM 500 MG/5 ML VIAL IVPB SCH ×2 (09:46→21:20)
[2019-01-25] MEDS: HEPARIN NA (PORCINE) 5,000 UNITS/ML 1ML VIAL SQ SCH ×2 (09:47→21:21)
[2019-01-25] MEDS: SILVER SULFADIAZINE 1% TOP CREAM 50 GM JAR TP SCH (09:47)
[2019-01-25] MEDS: PANTOPRAZOLE SODIUM 40 MG VIAL IVPUSH SCH (09:47)
[2019-01-25] MEDS: TIMOLOL 0.5% OPHTHALMIC SOL 5 ML BOTTLE OU SCH (09:47)
[2019-01-25] MEDS: AZTREONAM 1 GM in DEXTROSE 5%-WATER - 50 ML IVPB SCH ×2 (09:48→21:20)
--- NOTE | 2019-01-25 11:05 | PN ---
Teaching Attending Note Name of Resident: Karlee Díaz ATTENDING PHYSICIAN STATEMENT I saw and evaluated the patient. I reviewed the resident's note and discussed the case with the resident. I agree with the resident's findings and plan as documented. SUBJECTIVE: unable to obtain, patient awake but intubated OBJECTIVE: Last Vital Signs Temp Pulse Resp BP Pulse Ox 36.3 C L 88 20 96/67 100 01/25/19 06:00 01/25/19 06:00 01/25/19 08:06 01/25/19 06:00 01/25/19 07:52 Gen: nad Pulm: intubated, mechanically ventilated, no w/r/r CV: rrr w/o m/r/g Abd: +bs, s/nt/nd Ext: areas of ulceration and bullae on extremities CBC, BMP 01/25/19 05:25 01/25/19 05:25 37 minutes spent in critical care time with this patient Problem List - Problems (1) UTI (urinary tract infection) Assessment/Plan: -appreciate ID assistance -patient with multiple allergies -continue aztreonam Code(s): N39.0 - URINARY TRACT INFECTION, SITE NOT SPECIFIED (2) Acute kidney injury Assessment/Plan: -appreciate nephrology assistance -continue IVF -improving Code(s): N17.9 - ACUTE KIDNEY FAILURE, UNSPECIFIED (3) Acute metabolic encephalopathy Assessment/Plan: -appears improved, following commands -LP performed -possible HSV encephalitis -continue acyclovir -ID managing Code(s): G93.41 - METABOLIC ENCEPHALOPATHY (4) Acute respiratory failure with hypoxia Assessment/Plan: -case d/w pulmonary -will try to extubate today Code(s): J96.01 - ACUTE RESPIRATORY FAILURE WITH HYPOXIA (5) Skin rash Assessment/Plan: -concern for TENS -dermatology reviewed pictures and will see tomorrow -recommends transfer to burn unit -in contact with [facility] to attempt transfer tonight Code(s): R21 - RASH AND OTHER NONSPECIFIC SKIN ERUPTION (6) HTN (hypertension), benign Assessment/Plan: -controlled currently Code(s): I10 - ESSENTIAL (PRIMARY) HYPERTENSION (7) History of CVA (cerebrovascular accident) Assessment/Plan: -repeat CT scan unchanged Code(s): Z86.73 - PRSNL HX OF TIA (TIA), AND CEREB INFRC W/O RESID DEFICITS (8) Seizure Assessment/Plan: -continue IV valproate Code(s): R56.9 - UNSPECIFIED CONVULSIONS
--- NOTE | 2019-01-25 11:43 | PN ---
Teaching Attending Note Name of Resident: Mariam Costa ATTENDING PHYSICIAN STATEMENT I saw and evaluated the patient. I reviewed the resident's note and discussed the case with the resident. I agree with the resident's findings and plan as documented. SUBJECTIVE: Pt seen and examined in the ICU. Awake, following commands off sedation. Placed on CPAP/PS with good RSBI and respiratory effort, subsequently extubated during rounds. Area of sloughing slightly more. s/p LP with 7 WBC, started on acyclovir. OBJECTIVE: Vital Signs Period Temp Pulse Resp BP Sys/Lewis Pulse Ox Last 24 Hr 97.3 F-99.0 F 75-103 8-22 96-128/62-101 100-100 Intake & Output 01/22/19 01/23/19 01/24/19 01/25/19 23:59 23:59 23:59 23:59 Intake Total 1323.8 3251 2338 Output Total 415 884 5235 900 Balance -200 823.8 1651 1438 Weight 107.955 kg 102.3 kg 104.78 kg 104.871 kg Gen: extubated Heart: RRR Lung: decreased breath sounds at the bases Abd: soft, nontender Ext: no edema, areas of hyperpigmentation, sloughing CBC, BMP 01/25/19 05:25 01/25/19 05:25 Active Medications Acetaminophen (Ofirmev Injection -) 1,000 mg IVPB Q6H PRN PRN Reason: FEVER Last Admin: 01/23/19 21:35 Dose: 1,000 mg Albuterol Sulfate (Ventolin 0.083% Nebulizer Soln -) 1 amp NEB RQID JOSEF Last Admin: 01/25/19 08:06 Dose: 1 amp Albuterol/Ipratropium (Duoneb -) 1 amp NEB Q6H PRN PRN Reason: SHORTNESS OF BREATH Heparin Sodium (Porcine) (Heparin -) 5,000 unit SQ BID JOSEF Last Admin: 01/25/19 09:47 Dose: 5,000 unit Propofol (Diprivan -) 1,000,000 mcg in 100 mls @ 3.239 mls/hr IVPB TITR JOSEF; Protocol Last Admin: 01/24/19 23:35 Dose: 40 mcg/kg/min, 25.909 mls/hr Aztreonam 1 gm/ Dextrose 50 mls @ 100 mls/hr IVPB BID JOSEF Last Admin: 01/25/19 09:48 Dose: 100 mls/hr Fentanyl 500 mcg/ Dextrose 100 mls @ 5 mls/hr IVPB TITR JOSEF; Protocol Last Titration: 01/24/19 12:30 Dose: 0 mcg/hr, 0 mls/hr Lactated Ringer's (Lactated Ringers Solution) 1,000 ml in 1,000 mls @ 150 mls/ hr IV ASDIR JOSEF Last Admin: 01/24/19 12:31 Dose: 150 mls/hr Acyclovir 700 mg/ Dextrose 114 mls @ 228 mls/hr IVPB Q24H JOSEF Pantoprazole Sodium (Protonix Iv) 40 mg IVPUSH DAILY [facility] Last Admin: 01/25/19 09:47 Dose: 40 mg Silver Sulfadiazine (Silvadene -) 1 applic TP DAILY [facility] Last Admin: 01/25/19 09:47 Dose: 1 applic Timolol Maleate (Timoptic 0.5%) 1 drop OU DAILY [facility] Last Admin: 01/25/19 09:47 Dose: 1 drop Valproate Sodium (Depacon Injection -) 750 mg IVPB BID [facility] Last Admin: 01/25/19 09:46 Dose: 750 mg ASSESSMENT AND PLAN: Acute Respiratory Failure r/o Martinez Sandeep Syndrome - ?Zosyn UTI Severe Sepsis Acute Kidney Injury Rhabdomyolysis Seizure Disorder h/o CVA - continue antibiotics per ID - f/u cultures - continue IVF - monitor urine output, creatinine - wound care - monitor area of sloughing, transfer to burn unit if sloughing worse - derm eval - DVT prophylaxis - continue ICU monitoring critical care time spent in reviewing chart, evaluating patient and formulating plan 35 min
[2019-01-25] MEDS: LACTATED RINGERS SOLUTION 1,000 ML/1,000 ML INFUS.BAG IV SCH (12:00)
--- NOTE | 2019-01-25 14:46 | PN ---
Physical Exam: SUBJECTIVE: Patient seen and examined at the bedside. No acute events overnight , awaiting transfer to [facility]. Patient's skin showing increasing areas of dark hyperpigmentation underlying the bullae which are flaccid and sloughing. This is concerning for necrosis and would mean the area of skin involvement is greater than previously believed potentially involving >30% of the skin. SJS vs TEN workup pending. The patient was extubated this morning and it was noted that there is also involvement of the oral mucosa around the upper lip. OBJECTIVE: Vital Signs Period Temp Pulse Resp BP Sys/Lewis Pulse Ox Last 24 Hr 97.3 F-99.0 F 75-97 16-22 96-128/62-101 100-100 GENERAL: Patient is responsive, opening eyes and following commands HEAD: Normal with no signs of trauma. EYES: Pupils equal, round and reactive to light, sclera anicteric, conjunctiva clear. EARS, NOSE, THROAT: Dry mucous membranes, some areas on upper lip concerning for mucosal skin sloughing LUNGS: Breath sounds equal, clear to auscultation bilaterally. No wheezes, and no crackles. Extubated and satting well with a VM. HEART: Regular rate and rhythm, normal S1 and S2 without murmur ABDOMEN: Soft, nontender, not distended, normoactive bowel sounds, no guarding, no rebound, no masses. MUSCULOSKELETAL: No bony deformities UPPER EXTREMITIES: 2+ radial pulses, warm, well-perfused. No cyanosis. LOWER EXTREMITIES: 2+ pulses, warm, well-perfused. No peripheral edema. SKIN: sloughing skin on shins anteriorly with skin break down on the buttocks L> R, sloughing skin around knuckles, sloughing skin on thighs, sloughing skin on arms bilaterally. Dark areas of hyperpigmentation underlying flaccid bullae which are sloughing. Involvement of the oral mucosa. Laboratory Results - last 24 hr 01/24/19 01/24/19 01/24/19 12:30 17:11 21:38 WBC RBC Hgb Hct MCV MCH MCHC RDW Plt Count MPV Sodium Potassium Chloride Carbon Dioxide Anion Gap BUN Creatinine Est GFR (CKD-EPI)AfAm Est GFR (CKD-EPI)NonAf POC Glucometer 77 68 Random Glucose Calcium Phosphorus Magnesium Total Bilirubin AST ALT Alkaline Phosphatase Total Protein Albumin CSF Appearance Clear CSF Color Colorless CSF WBC 7 CSF RBC 1 CSF Neutrophils No Result Required. CSF Lymphocytes No Result Required. CSF Eosinophils No Result Required. CSF Basophils No Result Required. CSF Macrophages No Result Required. CSF Plasma Cells No Result Required. CSF Diff Comment Tube #4 CSF Comment No Result Required. CSF Glucose 58 CSF Total Protein 58 H 01/25/19 01/25/19 01/25/19 04:15 05:25 05:25 WBC 8.6 RBC 4.49 Hgb 11.3 Hct 33.5 MCV 74.6 L MCH 25.1 L MCHC 33.6 RDW 18.1 H Plt Count 113 L MPV 9.1 Sodium 144 Potassium 3.7 Chloride 111 H Carbon Dioxide 23 Anion Gap 10 BUN 85.8 H Creatinine 4.1 H Est GFR (CKD-EPI)AfAm 13.15 Est GFR (CKD-EPI)NonAf 11.35 POC Glucometer 86 Random Glucose 79 Calcium 7.8 L Phosphorus 5.3 H Magnesium 2.7 H Total Bilirubin 0.5 AST 15 ALT 26 Alkaline Phosphatase 64 Total Protein 4.8 L Albumin 2.1 L CSF Appearance CSF Color CSF WBC CSF RBC CSF Neutrophils CSF Lymphocytes CSF Eosinophils CSF Basophils CSF Macrophages CSF Plasma Cells CSF Diff Comment CSF Comment CSF Glucose CSF Total Protein 01/25/19 07:31 WBC RBC Hgb Hct MCV MCH MCHC RDW Plt Count MPV Sodium Potassium Chloride Carbon Dioxide Anion Gap BUN Creatinine Est GFR (CKD-EPI)AfAm Est GFR (CKD-EPI)NonAf POC Glucometer 73 Random Glucose Calcium Phosphorus Magnesium Total Bilirubin AST ALT Alkaline Phosphatase Total Protein Albumin CSF Appearance CSF Color CSF WBC CSF RBC CSF Neutrophils CSF Lymphocytes CSF Eosinophils CSF Basophils CSF Macrophages CSF Plasma Cells CSF Diff Comment CSF Comment CSF Glucose CSF Total Protein Active Medications Generic Name Dose Route Start Last Admin Trade Name Freq PRN Reason Stop Dose Admin Acetaminophen 1,000 mg 01/23/19 07:13 01/23/19 21:35 Ofirmev Injection - IVPB 1,000 mg Q6H PRN Administration FEVER Albuterol Sulfate 1 amp 01/23/19 08:00 01/25/19 12:21 Ventolin 0.083% Nebulizer Soln - NEB 1 amp RQID JOSEF Administration Albuterol/Ipratropium 1 amp 01/23/19 09:18 Duoneb - NEB Q6H PRN SHORTNESS OF BREATH Heparin Sodium (Porcine) 5,000 unit 01/22/19 22:00 01/25/19 09:47 Heparin - SQ 5,000 unit BID JOSEF Administration Aztreonam 1 gm/ Dextrose 50 mls @ 100 mls/hr 01/23/19 13:00 01/25/19 09:48 IVPB 100 mls/hr BID JOSEF Administration Lactated Ringer's 1,000 ml in 1,000 mls @ 150 mls/hr 01/24/19 11:12 01/24/19 12:31 Lactated Ringers Solution IV 150 mls/hr ASDIR JOSEF Administration Acyclovir 700 mg/ Dextrose 114 mls @ 228 mls/hr 01/25/19 22:00 IVPB Q24H JOSEF Pantoprazole Sodium 40 mg 01/25/19 10:00 01/25/19 09:47 Protonix Iv IVPUSH 40 mg DAILY JOSEF Administration Silver Sulfadiazine 1 applic 01/24/19 12:00 01/25/19 09:47 Silvadene - TP 1 applic DAILY JOSEF Administration Timolol Maleate 1 drop 01/23/19 10:00 01/25/19 09:47 Timoptic 0.5% OU 1 drop DAILY JOSEF Administration Valproate Sodium 750 mg 01/24/19 22:00 01/25/19 09:46 Depacon Injection - IVPB 750 mg BID JOSEF Administration ASSESSMENT/PLAN: Pt. is a 58 y.o. F w/ PMHx. 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 Neurology #Acute Metabolic Encephalopathy 2/2 Sepsis likely 2/2 to UTI - Head CT unchanged from prior, chronic gliosis, chronic R. parietal lobe infarct - CXR: no acute pathology - UA: 3+ LE, 53 WBCs, 2+ protein, 2+ blood - Urine culture grew tate-sensitive e.coli - CSF with WBC 7, RBC 1, Glucose 58, Protein 58 - Given Zosyn, Vancomycin, Ampicillin, Acyclovir and Ceftriaxone in ED - ID following (Dr. Meadows) appreciate reccs - currently on aztreonam 50 mls @ 100 mls/hr IVPB BID and acyclovir 114 mls @ 228 mls/hr IVPB q24h #History of complex partial seizures - Neurology consult (Dr. Mcrae) appreciated--> started Depacon 750mg BID( As Pt. is NPO) - Psychiatric Eval. and MRI when feasible. - Aggressive IVF - Seizure precautions Pulmonology #Acute Hypoxic Respiratory Failure - Pt. extubated and saturating well on VM - c/w Duonebs PRN and Albuterol RQID - maintain SpO2 above 90% Nephrology #Acute Renal Failure 2/2 UTI - Pt. noted to have Cr. around 0.9 on discharge one month ago, now currently 5.4 - UA noted as above - likely component of hypovolemia and UTI - FeNA 0.7% consistent with pre-renal cause of renal failure (ie sepsis/ hypovolemia) - Renal US unremarkable(echogenic right kidney indicative of chronic renal disease), noted some non-specific periportal edema - c/w IVF - c/w Abx. as above Nephrology consult (Dr. 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 Area of skin involved expanding, now also involving oral mucosa. Skin involvement estimated to be approaching 30% and expanding concerning for TEN. - Attempted transfer to [facility] however was placed on a waitlist because no current bed availability - Attempted transfer to [facility] however was told that proven biopsy confirming SJS was required prior to transfer - Will obtain skin biopsy for confirmation - Will continue to attempt to place patient at a facility capable of providing the necessary management - Continue to monitor for expanding wounds, located on bilateral shins, on b/l buttocks L>R on knuckles, b/l thighs, and b/l arms. - Silvadene- apply daily to wounds - Wound care consult Cardiovascular #HTN #HLD Trop Negative Gastrointestinal - started on protonix as ppx for intubation/ sloughing skin lesions FEN LR @ 100 monitor electrolytes and replete as needed Sodium Controlled Diet DVT Ppx. Hep SQ BID Visit type - Emergency Visit Emergency Visit: Yes ED Registration Date: 01/22/19 Care time: The patient presented to the Emergency Department on the above date and was hospitalized for further evaluation of their emergent condition. - New Patient This patient is new to me today: No - Critical Care Critical Care patient: Yes Total Critical Care Time (in minutes): 40 Critical Care Statement: The care of this patient involved high complexity decision making to prevent further life threatening deterioration of the patient 's condition and/or to evaluate & treat vital organ system(s) failure or risk of failure. ATTENDING PHYSICIAN STATEMENT I saw and evaluated the patient. I reviewed the resident's note and discussed the case with the resident. I agree with the resident's findings and plan as documented. SUBJECTIVE: OBJECTIVE: ASSESSMENT AND PLAN:
[2019-01-25] MEDS ORDERED: LIDOCAINE HCL 1%, 10 MG/ML (20ML VIAL) ONE (17:47)
--- NOTE | 2019-01-25 18:19 | CONSULT ---
Consult - text type - Consultation Consultation Note: consult on chart . Biopsy performed. Dermatology Dr Lisa Cheung
[2019-01-25] MEDS: PROPOFOL 1,000,000 MCG/100 ML VIAL IVPB SCH (18:24)
[2019-01-25] MEDS: ACYCLOVIR INJECTION 700 MG in DEXTROSE 5%-WATER - 100 ML IVPB SCH (21:21)
[2019-01-26 06:20] LABS: HEMATOCRIT 31.7 % (32.4-45.2); HEMOGLOBIN 10.6 GM/dL (10.7-15.3); MCH 24.9 pg (25.7-33.7); MCHC 33.6 g/dl (32.0-36.0); MEAN CELL VOLUME 74.1 fl (80-96); PLATELET COUNT 133 K/MM3 (134-434); RBC 4.28 M/mm3 (3.60-5.2); RDW 17.9 % (11.6-15.6); WHITE BLOOD COUNT 9.3 K/mm3 (4.0-10.0)
[2019-01-26 06:45] LABS: ALBUMIN 2.1 g/dl (3.4-5.0); BILIRUBIN,TOTAL 0.6 mg/dL (0.2-1); BLOOD UREA NITROGEN 66.2 mg/dL (7-18); CREATININE 2.7 mg/dL (0.55-1.3); MAGNESIUM 2.6 mg/dL (1.8-2.4); PHOSPHOROUS 4.6 mg/dL (2.5-4.9); POTASSIUM 3.5 mmol/L (3.5-5.1)
[2019-01-26] MEDS ORDERED: DEXTROSE 5%-WATER - 1,000 ML IV SCH (07:30)
[2019-01-26] MEDS: ALBUTEROL SO4 0.083% IH SOL 2.5 MG/3 ML VIAL.NEB. NEB SCH ×4 (08:00→21:06)
--- NOTE | 2019-01-26 09:02 | PN ---
Progress Note (short form) - Note Progress Note: Neurology CHIEF COMPLAINT: AMS, fever HISTORY OF PRESENT ILLNESS: 58yo woman with a PMH of hemorrhagic stroke w/ residual left-sided weakness, HTN , HLD, complex partial seizures who presented with AMS, fever, and shaking on day of admission. Per notes, the sister reported that the patient was in her usual state of health when she went with the sister and mother the day prior to admission to tour a SNF; on the way home, she reported that she felt nauseated with an episode of vomiting. Otherwise, she has had no complaints recently. The day of admission, her sister noticed that the pt was "lethargic" and shaking as well as poorly responsive. She was unable to complete a conversation. The sister helped give her medications that morning but was concerned that she was acting strangely. Ct head was completed without acute changes. Patient found to have fever on admission with RAMYA and tachypnea, facemask in place. EEG ordered to evaluate for any abnormal blood form activity. The patient was on Tegretol but is not currently able to take by mouth. Reportedly with allergies to Keppra and Dilantin, therefore recommended Depakote, IV formulation 750 mg twice a day. No abnormal movement during my evaluation. Extubated and no longer on vent. LP results 7 WBC, increased protein normal glucose. Discussed with ID , suspicion for viral MANAGER BODY infection, patient with limited exam, we felt should continued Acyclovir. Though mindful of kidney function, her presentation and results lends itself continuing infectious treatment. Ordered repeat CT head last night and no further changes noted. Awoke to voice today, following basic commands, somnolent but conversive. Continued improvement in exam from yesterday. No longer intubated or on vent, facemask in place. Renal function improved. Allergies levetiracetam [From Keppra] Adverse Reaction (Verified 01/22/19 14:25) phenytoin sodium [From Dilantin] Adverse Reaction (Verified 01/22/19 14:25) phenytoin sodium extended [From Dilantin] Adverse Reaction (Verified 01/22/19 14 :25) Active Medications Acetaminophen (Ofirmev Injection -) 1,000 mg IVPB Q6H PRN PRN Reason: FEVER Last Admin: 01/23/19 21:35 Dose: 1,000 mg Albuterol Sulfate (Ventolin 0.083% Nebulizer Soln -) 1 amp NEB RQID [facility] Last Admin: 01/25/19 21:10 Dose: 1 amp Albuterol/Ipratropium (Duoneb -) 1 amp NEB Q6H PRN PRN Reason: SHORTNESS OF BREATH Heparin Sodium (Porcine) (Heparin -) 5,000 unit SQ BID [facility] Last Admin: 01/25/19 21:21 Dose: 5,000 unit Hydromorphone HCl (Dilaudid Injection -) 1 mg IVPUSH ONCE ONE Stop: 01/26/19 07:24 Aztreonam 1 gm/ Dextrose 50 mls @ 100 mls/hr IVPB BID [facility] Last Admin: 01/25/19 21:20 Dose: 100 mls/hr Acyclovir 700 mg/ Dextrose 114 mls @ 228 mls/hr IVPB Q24H [facility] Last Admin: 01/25/19 21:21 Dose: 228 mls/hr Dextrose (D5w -) 1,000 mls @ 125 mls/hr IV .Q8H [facility] Pantoprazole Sodium (Protonix Iv) 40 mg IVPUSH DAILY [facility] Last Admin: 01/25/19 09:47 Dose: 40 mg Silver Sulfadiazine (Silvadene -) 1 applic TP DAILY [facility] Last Admin: 01/25/19 09:47 Dose: 1 applic Timolol Maleate (Timoptic 0.5%) 1 drop OU DAILY [facility] Last Admin: 01/25/19 09:47 Dose: 1 drop Valproate Sodium (Depacon Injection -) 750 mg IVPB BID [facility] Last Admin: 01/25/19 21:20 Dose: 750 mg PHYSICAL EXAMINATION Vital Signs Period Temp Pulse Resp BP Sys/Lewis Pulse Ox Last 24 Hr 97.7 F-99.5 F 87-105 16-25 86-145/61-101 97-100 GENERAL:AWake, alert HEAD: Normal with no signs of trauma. EYES: Pupils response to light , sclera anicteric, conjunctiva clear. No lid lag. EARS, NOSE, THROAT: Ears normal, nares patent, oropharynx clear without exudates. Moist mucous membranes. LUNGS: Mechanical breath sounds HEART: Regular rate and rhythm, normal S1 and S2 without murmur, rub or gallop. ABDOMEN: Normoactive bowel sounds EXTREMITIES: 2+ pulses, warm, well-perfused. No cyanosis. No clubbing. No peripheral edema. 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 CBCD WBC 9.3 K/mm3 (4.0-10.0) 01/26/19 05:15 RBC 4.28 M/mm3 (3.60-5.2) 01/26/19 05:15 Hgb 10.6 GM/dL (10.7-15.3) L 01/26/19 05:15 Hct 31.7 % (32.4-45.2) L 01/26/19 05:15 MCV 74.1 fl (80-96) L 01/26/19 05:15 MCHC 33.6 g/dl (32.0-36.0) 01/26/19 05:15 RDW 17.9 % (11.6-15.6) H 01/26/19 05:15 Plt Count 133 K/MM3 (134-434) L 01/26/19 05:15 MPV 9.0 fl (7.5-11.1) 01/26/19 05:15 CMP Sodium 151 mmol/L (136-145) H 01/26/19 05:15 Potassium 3.5 mmol/L (3.5-5.1) 01/26/19 05:15 Chloride 119 mmol/L (98-107) H 01/26/19 05:15 Carbon Dioxide 26 mmol/L (21-32) 01/26/19 05:15 Anion Gap 7 MMOL/L (8-16) L 01/26/19 05:15 BUN 66.2 mg/dL (7-18) H 01/26/19 05:15 Creatinine 2.7 mg/dL (0.55-1.3) H 01/26/19 05:15 Random Glucose 75 mg/dL (74-106) 01/26/19 05:15 Calcium 8.0 mg/dL (8.5-10.1) L 01/26/19 05:15 Total Bilirubin 0.6 mg/dL (0.2-1) 01/26/19 05:15 AST 12 U/L (15-37) L 01/26/19 05:15 ALT 24 U/L (13-61) 01/26/19 05:15 Alkaline Phosphatase 87 U/L (45-117) 01/26/19 05:15 Total Protein 5.0 g/dl (6.4-8.2) L 01/26/19 05:15 Albumin 2.1 g/dl (3.4-5.0) L 01/26/19 05:15 CARDIAC ENZYMES Creatine Kinase 414 U/L (26-192) H 01/24/19 05:41 Troponin I < 0.02 ng/ml (0.00-0.05) 01/22/19 15:50 ASSESSMENT/PLAN: 58yo woman with a PMH of hemorrhagic stroke w/ residual left-sided weakness, HTN , HLD, complex partial seizures who presented with AMS, fever, and shaking on day of admission. Per notes, the sister reported that the patient was in her usual state of health when she went with the sister and mother the day prior to admission to tour a SNF; on the way home, she reported that she felt nauseated with an episode of vomiting. Otherwise, she has had no complaints recently. The day of admission, her sister noticed that the pt was "lethargic" and shaking as well as poorly responsive. She was unable to complete a conversation. The sister helped give her medications that morning but was concerned that she was acting strangely. Ct head was completed without acute changes. Patient found to have fever on admission with RAMYA and tachypnea, facemask in place. EEG ordered to evaluate for any abnormal blood form activity. The patient was on Tegretol but is not currently able to take by mouth. Reportedly with allergies to Keppra and Dilantin, therefore recommended Depakote, IV formulation 750 mg twice a day. Patient on propofol sedation in ICU which also serves to prevent seizure activity. No abnormal movement during my evaluation. Intubated, ventilated. LP results reviewed, 7 WBC, increased protein normal glucose. Discussed with ID, suspicion for viral MANAGER BODY infection, patient with limited exam , we felt should continued Acyclovir. Though mindful of kidney function, her presentation and results lends itself continuing infectious treatment. Ordered repeat CT head last night for this AM and no further changes noted. Awoke to voice today, not following commands but turns head and pupils responsive. Improvement in exam from yesterday. ABx per ID, follow up ID rec'd. Follow up infectious labs. Maintain adequate hydration. Monitor electrolytes, correction of RAMYA. Patient possibly for transfer, primary team trying coordinating with C. Continue critical care mgmt and medical optimization until that occurs. Renal function improving. Mental status much better, no longer on sedation, no longer intubated. Advised ICU resident for MRI brain today now that no longer vented. Critical care time 35mins.
[2019-01-26] MEDS ORDERED: HYDROmorphone HCl 2 MG/ML VIAL IVPUSH ONE (09:15)
[2019-01-26] MEDS ORDERED: PT OWN MED DRAWER 7, Y5N ONE ×2 (09:26→21:04)
[2019-01-26] MEDS: PANTOPRAZOLE SODIUM 40 MG VIAL IVPUSH SCH (09:37)
[2019-01-26] MEDS: VALPROATE SODIUM 500 MG/5 ML VIAL IVPB SCH ×2 (09:37→21:11)
[2019-01-26] MEDS: AZTREONAM 1 GM in DEXTROSE 5%-WATER - 50 ML IVPB SCH ×2 (09:37→21:11)
[2019-01-26] MEDS: HEPARIN NA (PORCINE) 5,000 UNITS/ML 1ML VIAL SQ SCH ×2 (09:39→21:12)
--- NOTE | 2019-01-26 09:41 | PN ---
Physical Exam: SUBJECTIVE: Patient seen and examined. Now extubated. awake, appears agitated and combative. OBJECTIVE: Vital Signs Period Temp Pulse Resp BP Sys/Lewis Pulse Ox Last 24 Hr 97.7 F-99.5 F 87-105 16-25 86-145/61-101 97-100 GENERAL: The patient is awake, alert, HEAD: Normal with no signs of trauma. EYES: PERRL, extraocular movements intact, sclera anicteric, conjunctiva clear. No ptosis. ENT: Swollen lips, eroded mucosa NECK: IJ in place LUNGS: Rhonchorus b/l HEART: S1, S2 ABDOMEN: Soft, Scattered sloughed skin and bullae EXTREMITIES: Multiple sloughed skin and bullae with hyperpigmentation NEUROLOGICAL: Awake, alert, pt appears agitated. Able to move right side. Not squeezing with her LUE. Laboratory Results - last 24 hr 01/25/19 01/25/19 01/26/19 18:29 20:16 00:01 WBC RBC Hgb Hct MCV MCH MCHC RDW Plt Count MPV Sodium Potassium Chloride Carbon Dioxide Anion Gap BUN Creatinine Est GFR (CKD-EPI)AfAm Est GFR (CKD-EPI)NonAf POC Glucometer 64 86 74 Random Glucose Calcium Phosphorus Magnesium Total Bilirubin AST ALT Alkaline Phosphatase Total Protein Albumin 01/26/19 01/26/19 01/26/19 05:15 05:15 06:47 WBC 9.3 RBC 4.28 Hgb 10.6 L Hct 31.7 L MCV 74.1 L MCH 24.9 L MCHC 33.6 RDW 17.9 H Plt Count 133 L MPV 9.0 Sodium 151 H Potassium 3.5 Chloride 119 H Carbon Dioxide 26 Anion Gap 7 L BUN 66.2 H Creatinine 2.7 H Est GFR (CKD-EPI)AfAm 21.80 Est GFR (CKD-EPI)NonAf 18.81 POC Glucometer 77 Random Glucose 75 Calcium 8.0 L Phosphorus 4.6 Magnesium 2.6 H Total Bilirubin 0.6 AST 12 L ALT 24 Alkaline Phosphatase 87 Total Protein 5.0 L Albumin 2.1 L Active Medications Generic Name Dose Route Start Last Admin Trade Name Freq PRN Reason Stop Dose Admin Acetaminophen 1,000 mg 01/23/19 07:13 01/23/19 21:35 Ofirmev Injection - IVPB 1,000 mg Q6H PRN Administration FEVER Albuterol Sulfate 1 amp 01/23/19 08:00 01/26/19 08:00 Ventolin 0.083% Nebulizer Soln - NEB 1 amp RQID JOSEF Administration Albuterol/Ipratropium 1 amp 01/23/19 09:18 Duoneb - NEB Q6H PRN SHORTNESS OF BREATH Heparin Sodium (Porcine) 5,000 unit 01/22/19 22:00 01/25/19 21:21 Heparin - SQ 5,000 unit BID JOSEF Administration Aztreonam 1 gm/ Dextrose 50 mls @ 100 mls/hr 01/23/19 13:00 01/25/19 21:20 IVPB 100 mls/hr BID JOSEF Administration Acyclovir 700 mg/ Dextrose 114 mls @ 228 mls/hr 01/25/19 22:00 01/25/19 21:21 IVPB 228 mls/hr Q24H JOSEF Administration Dextrose 1,000 mls @ 125 mls/hr 01/26/19 07:30 D5w - IV ASDIR JOSEF Pantoprazole Sodium 40 mg 01/25/19 10:00 01/25/19 09:47 Protonix Iv IVPUSH 40 mg DAILY JOSEF Administration Silver Sulfadiazine 1 applic 01/24/19 12:00 01/25/19 09:47 Silvadene - TP 1 applic DAILY JOSEF Administration Timolol Maleate 1 drop 01/23/19 10:00 01/25/19 09:47 Timoptic 0.5% OU 1 drop DAILY JOSEF Administration Valproate Sodium 750 mg 01/24/19 22:00 01/25/19 21:20 Depacon Injection - IVPB 750 mg BID JOSEF Administration Ambulatory Orders Nifedipine [Procardia Xl] 60 mg PO DAILY #30 tab 10/26/17 Timolol 0.5% [Timoptic 0.5%] 1 drop OU DAILY #1 bottle 10/26/17 Albuterol 0.083% Nebulizer Emmy [Ventolin 0.083% Nebulizer Soln -] 1 amp NEB RQID amp 11/03/18 Metoprolol Tartrate [Lopressor -] 100 mg PO BID 01/24/19 Oxcarbazepine 300 mg PO BID 01/24/19 CT head 01/25_ chronic parietal infarct noted, no interval change. Microbiology 01/22/19 19:35 Blood - Peripheral Venous Blood Culture - Final NO GROWTH AFTER 5 DAYS INCUBATION 01/22/19 19:35 Blood - Peripheral Venous Blood Culture - Final NO GROWTH AFTER 5 DAYS INCUBATION 01/24/19 12:30 Cerebral Spinal Fluid - Lumbar Puncture Gram Stain - Final 01/24/19 12:30 Cerebral Spinal Fluid - Lumbar Puncture CSF Culture - Final 01/22/19 18:00 Urine - Urine Clean Catch Urine Culture - Final Escherichia Coli 01/24/19 12:30 Cerebral Spinal Fluid - Lumbar Puncture Viral Culture - Preliminary 01/23/19 18:00 Urine For Antigen Detection Legionella Antigen - Final 01/23/19 18:00 Urine For Antigen Detection Streptococcus pneumoniae Antigen (M - Final Renal US-periportal edema, Echogenic R kidney relative to adjacent liver parenchyma of chronic medical renal disease. ASSESSMENT/PLAN: Pt is a 58 yof with PMhx of R hemorrhagic stroke, complex partial seizure disorder due to stroke, HTN, HLD, prolonged admission in 11/2018 with AMS, seizures, fevers, RAMYA admitted with AMS, fevers, RAMYA, now with tachypnea and hyperpigmented rashes with blisters and denuded skin #AMS, s/p extubation 01/25 Pt had been intubated to protect airway and for transfer to tertiary center, likely acute metabolic encephalopathy from sepsis/uremia (anion gap metabolic acidosis) Received zosyn in ED- pt had skin blisters with SJS in past from Zosyn Pt received medications for empiric meningitis LP -probably suggestive of viral menigitis--glu 58 (nl->45), total protein 58 ( increased), CSF to plasma glu ratio 0.59 (should be <0.40 in viral meningitis, but could be affected by medications), WBC-7, RBC-1 Possible viral meningitis Cont acyclovir 01/24 L sided weakness Pt moving only R extremities Repeat Head CT -negative for acute pathology #SJS/Possible TEN s/p skin biopsy Prior SJS with zosyn Could have neurologic symptoms Aggressive hydration ICU considering transfer to a tertiary center Pt also noted to be allergic to dilantin, phenytoin, consider steroids Pt reported symptoms started after dose of hydrochlorothiazide a day before presentation with n/v/ fever and then AMS #Tachypnea pt initially with metabolic acidosis resolved on intubation #Sepsis secondary to UTI intially on dapto 600 Q48hrs, Aztreonam 1g Q12h, now only on aztreonam since 01/23 Urine cultures-E.coli-pansensitive. Pt also on acyclovir for possible viral meningitis LR #Anion Gap Metabolic acidosis resolved Lactic acidosis- resolved Likely uremic with RAMYA With LR #RAMYA likely prerenal from reduced intake in setting of AMS/sepsis -FeNa-0.5%- prerenal LR @100mls/hr avoid nephrotoxins, renal dosing of meds renal consult Dr. Bennie Mojica, strict I/Os #Lactic acidosis resolved Could be related to seizures, R/O sepsis, #H/o right sided Hemorrhagic CVA s/p CT head -negative #Complex partial seizure disorder Pt allergic SJS to keppra, phenytoin Pt on home oxcarbazine- Hold for now reported cross reactivity to carbamazepine with phenytoin Pt on depakote #HTN Pt could be tachycardic with sepsis and fever #HLD Not on statins at home Monitor #Elevated CPK Trended down Hydrate NPO Cont ICU mx For possible transfer to tertiary center- ICU team Visit type - Emergency Visit Emergency Visit: Yes ED Registration Date: 01/22/19 Care time: The patient presented to the Emergency Department on the above date and was hospitalized for further evaluation of their emergent condition. - New Patient This patient is new to me today: No - Critical Care Critical Care patient: Yes Total Critical Care Time (in minutes): 30 Critical Care Statement: The care of this patient involved high complexity decision making to prevent further life threatening deterioration of the patient 's condition and/or to evaluate & treat vital organ system(s) failure or risk of failure. ATTENDING PHYSICIAN STATEMENT I saw and evaluated the patient. I reviewed the resident's note and discussed the case with the resident. I agree with the resident's findings and plan as documented. SUBJECTIVE: OBJECTIVE: ASSESSMENT AND PLAN:
[2019-01-26] MEDS: TIMOLOL 0.5% OPHTHALMIC SOL 5 ML BOTTLE OU SCH (11:06)
--- NOTE | 2019-01-26 11:38 | PN ---
Teaching Attending Note Name of Resident: Rubio Gallagher ATTENDING PHYSICIAN STATEMENT I saw and evaluated the patient. I reviewed the resident's note and discussed the case with the resident. I agree with the resident's findings and plan as documented. SUBJECTIVE: Pt seen and examined in the ICU. Extubated yesterday without incident. Denies shortness of breath. Areas of necrosis continue to expand. s/p skin biopsy yesterday. OBJECTIVE: Vital Signs Period Temp Pulse Resp BP Sys/Lewis Pulse Ox Last 24 Hr 98.3 F-99.5 F 89-105 19-25 86-145/61-87 97-100 Intake & Output 01/23/19 01/24/19 01/25/19 01/26/19 23:59 23:59 23:59 23:59 Intake Total 1323.8 3251 4288 2150 Output Total 500 1600 2450 1350 Balance 823.8 1651 1838 800 Weight 102.3 kg 104.78 kg 104.871 kg 112.219 kg Gen: awake, alert Heart: RRR Lung: decreased breath sounds at the bases Abd: soft, nontender Ext: no edema, multiple areas of sloughing CBC, BMP 01/26/19 05:15 01/26/19 05:15 Active Medications Acetaminophen (Ofirmev Injection -) 1,000 mg IVPB Q6H PRN PRN Reason: FEVER Last Admin: 01/23/19 21:35 Dose: 1,000 mg Albuterol Sulfate (Ventolin 0.083% Nebulizer Soln -) 1 amp NEB RQID [facility] Last Admin: 01/26/19 08:00 Dose: 1 amp Albuterol/Ipratropium (Duoneb -) 1 amp NEB Q6H PRN PRN Reason: SHORTNESS OF BREATH Heparin Sodium (Porcine) (Heparin -) 5,000 unit SQ BID [facility] Last Admin: 01/26/19 09:39 Dose: 5,000 unit Aztreonam 1 gm/ Dextrose 50 mls @ 100 mls/hr IVPB BID [facility] Last Admin: 01/26/19 09:37 Dose: 100 mls/hr Acyclovir 700 mg/ Dextrose 114 mls @ 228 mls/hr IVPB Q24H [facility] Last Admin: 01/25/19 21:21 Dose: 228 mls/hr Dextrose (D5w -) 1,000 mls @ 125 mls/hr IV ASDIR [facility] Last Admin: 01/26/19 08:15 Dose: 125 mls/hr Pantoprazole Sodium (Protonix Iv) 40 mg IVPUSH DAILY [facility] Last Admin: 01/26/19 09:37 Dose: 40 mg Silver Sulfadiazine (Silvadene -) 1 applic TP DAILY [facility] Last Admin: 01/25/19 09:47 Dose: 1 applic Timolol Maleate (Timoptic 0.5%) 1 drop OU DAILY [facility] Last Admin: 01/26/19 11:06 Dose: 1 drop Valproate Sodium (Depacon Injection -) 750 mg IVPB BID [facility] Last Admin: 01/26/19 09:37 Dose: 750 mg ASSESSMENT AND PLAN: s/p Acute Respiratory Failure r/o Martinez Sandeep Syndrome/TEN UTI Severe Sepsis Acute Kidney Injury Rhabdomyolysis Seizure Disorder h/o CVA - continue antibiotics per ID - f/u cultures - continue IVF - monitor urine output, creatinine - wound care - monitor area of sloughing, awaiting transfer to burn unit - f/u skin biopsy - DVT prophylaxis - continue ICU monitoring critical care time spent in reviewing chart, evaluating patient and formulating plan 35 min
--- NOTE | 2019-01-26 12:23 | PN ---
Physical Exam: SUBJECTIVE: Patient seen and examined. Pt. was placed on waiting list at [facility] ( currently 5th in line) and was rejected at [facility] until biopsy proven SJS. Pt. had biopsy by Dr. Cheung overnight and sent out, will take 5 days to return. Will reach out to other facilities with burn units. OBJECTIVE: Vital Signs Period Temp Pulse Resp BP Sys/Lewis Pulse Ox Last 24 Hr 98.3 F-99.5 F 89-105 19-25 86-145/61-87 97-100 GENERAL: Patient is responsive, opening eyes and following commands HEAD: Normal with no signs of trauma. EYES: Pupils equal, round and reactive to light, sclera anicteric, conjunctiva clear. EARS, NOSE, THROAT: Dry mucous membranes, some areas on upper lip concerning for mucosal skin sloughing LUNGS: Breath sounds equal, clear to auscultation bilaterally. No wheezes, and no crackles. Saturating well on nasal cannula HEART: Regular rate and rhythm, normal S1 and S2 without murmur ABDOMEN: Soft, nontender, not distended, normoactive bowel sounds, no guarding, no rebound, no masses. MUSCULOSKELETAL: No bony deformities UPPER EXTREMITIES: 2+ radial pulses, warm, well-perfused. No cyanosis. LOWER EXTREMITIES: 2+ dorsal pedal pulses, warm, well-perfused. No peripheral edema. SKIN: sloughing skin on shins anteriorly with skin break down on the buttocks L> R, sloughing skin around knuckles, sloughing skin on thighs, sloughing skin on arms bilaterally. Dark areas of hyperpigmentation underlying flaccid bullae which are sloughing. Involvement of the oral mucosa. All are worsenining and expanding, placed markings on skin today Laboratory Results - last 24 hr 01/25/19 01/25/19 01/26/19 18:29 20:16 00:01 WBC RBC Hgb Hct MCV MCH MCHC RDW Plt Count MPV Sodium Potassium Chloride Carbon Dioxide Anion Gap BUN Creatinine Est GFR (CKD-EPI)AfAm Est GFR (CKD-EPI)NonAf POC Glucometer 64 86 74 Random Glucose Calcium Phosphorus Magnesium Total Bilirubin AST ALT Alkaline Phosphatase Total Protein Albumin 01/26/19 01/26/19 01/26/19 05:15 05:15 06:47 WBC 9.3 RBC 4.28 Hgb 10.6 L Hct 31.7 L MCV 74.1 L MCH 24.9 L MCHC 33.6 RDW 17.9 H Plt Count 133 L MPV 9.0 Sodium 151 H Potassium 3.5 Chloride 119 H Carbon Dioxide 26 Anion Gap 7 L BUN 66.2 H Creatinine 2.7 H Est GFR (CKD-EPI)AfAm 21.80 Est GFR (CKD-EPI)NonAf 18.81 POC Glucometer 77 Random Glucose 75 Calcium 8.0 L Phosphorus 4.6 Magnesium 2.6 H Total Bilirubin 0.6 AST 12 L ALT 24 Alkaline Phosphatase 87 Total Protein 5.0 L Albumin 2.1 L Active Medications Current Medications Acetaminophen (Ofirmev Injection -) 1,000 mg IVPB Q6H PRN PRN Reason: FEVER Last Admin: 01/23/19 21:35 Dose: 1,000 mg Albuterol Sulfate (Ventolin 0.083% Nebulizer Soln -) 1 amp NEB RQID [facility] Last Admin: 01/26/19 08:00 Dose: 1 amp Albuterol/Ipratropium (Duoneb -) 1 amp NEB Q6H PRN PRN Reason: SHORTNESS OF BREATH Heparin Sodium (Porcine) (Heparin -) 5,000 unit SQ BID [facility] Last Admin: 01/26/19 09:39 Dose: 5,000 unit Aztreonam 1 gm/ Dextrose 50 mls @ 100 mls/hr IVPB BID [facility] Last Admin: 01/26/19 09:37 Dose: 100 mls/hr Acyclovir 700 mg/ Dextrose 114 mls @ 228 mls/hr IVPB Q24H [facility] Last Admin: 01/25/19 21:21 Dose: 228 mls/hr Dextrose (D5w -) 1,000 mls @ 125 mls/hr IV ASDIR [facility] Last Admin: 01/26/19 08:15 Dose: 125 mls/hr Pantoprazole Sodium (Protonix Iv) 40 mg IVPUSH DAILY [facility] Last Admin: 01/26/19 09:37 Dose: 40 mg Silver Sulfadiazine (Silvadene -) 1 applic TP DAILY [facility] Last Admin: 01/25/19 09:47 Dose: 1 applic Timolol Maleate (Timoptic 0.5%) 1 drop OU DAILY [facility] Last Admin: 01/26/19 11:06 Dose: 1 drop Valproate Sodium (Depacon Injection -) 750 mg IVPB BID [facility] Last Admin: 01/26/19 09:37 Dose: 750 mg ASSESSMENT/PLAN: Pt. is a 58 y.o. F w/ PMHx. 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 Neurology #Acute Metabolic Encephalopathy 2/2 Sepsis likely 2/[address] unchanged from prior, chronic gliosis, chronic R. parietal lobe infarct CXR: no acute pathology UA: 3+ LE, 53 WBCs, 2+ protein, 2+ blood Urine culture grew tate-sensitive e.coli CSF with WBC 7, RBC 1, Glucose 58, Protein 58 Given Zosyn, Vancomycin, Ampicillin, Acyclovir and Ceftriaxone in ED ID following (Dr. Meadows) appreciate reccs currently on aztreonam 50 mls @ 100 mls/hr IVPB BID and acyclovir 114 mls @ 228 mls/hr IVPB q24h #History of complex partial seizures Neurology consult (Dr. Mcrae) appreciated--> started Depacon 750mg BID Psychiatric Eval. and MRI when feasible. Aggressive IVF Seizure precautions Pulmonology #Acute Hypoxic Respiratory Failure Pt. extubated 01/25/19 and saturating well on NC c/w Duonebs PRN and Albuterol RQID maintain SpO2 above 90% Nephrology #Acute Renal Failure 2/2 UTI Pt. noted to have Cr. around 0.9 on discharge one month ago, now currently 5.4 UA noted as above likely component of hypovolemia and UTI FeNA 0.7% consistent with pre-renal cause of renal failure (ie sepsis/ hypovolemia) Renal US unremarkable(echogenic right kidney indicative of chronic renal disease ), noted some non-specific periportal edema c/w IVF c/w Abx. as above Nephrology consult (Dr. 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 Area of skin involved expanding, now also involving oral mucosa. Skin involvement estimated to be approaching 30% and expanding concerning for TEN. Attempted transfer to [facility] however was placed on a waitlist because no current bed availability Attempted transfer to [facility] however was told that proven biopsy confirming SJS was required prior to transfer Skin Biopsy obtained, will await dermatopath results Will continue to attempt to place patient at a facility capable of providing the necessary management--> Pt. tentatively accepted at [facility] pending bed opening which they anticipate will be within 24Hrs. Accepting Physician Dr. Holden (MICU). Continue to monitor for expanding wounds, located on bilateral shins, on b/l buttocks L>R on knuckles, b/l thighs, and b/l arms. Silvadene- apply daily to wounds Petroleum jelly guaze to deep wounds skin marking to assess for expansion Wound care consult Started Prednisone 40mg Daily Cardiovascular #HTN #HLD Trop Negative Gastrointestinal C/w protonix as ppx for intubation/ sloughing skin lesions FEN LR @ 100 monitor electrolytes and replete as needed Sodium Controlled Diet DVT Ppx. Hep SQ BID Visit type - Emergency Visit Emergency Visit: Yes ED Registration Date: 01/22/19 Care time: The patient presented to the Emergency Department on the above date and was hospitalized for further evaluation of their emergent condition. - New Patient This patient is new to me today: No - Critical Care Critical Care patient: Yes Total Critical Care Time (in minutes): 80 Critical Care Statement: The care of this patient involved high complexity decision making to prevent further life threatening deterioration of the patient 's condition and/or to evaluate & treat vital organ system(s) failure or risk of failure. ATTENDING PHYSICIAN STATEMENT I saw and evaluated the patient. I reviewed the resident's note and discussed the case with the resident. I agree with the resident's findings and plan as documented. SUBJECTIVE: OBJECTIVE: ASSESSMENT AND PLAN:
[2019-01-26] MEDS: SILVER SULFADIAZINE 1% TOP CREAM 50 GM JAR TP SCH (12:24)
--- NOTE | 2019-01-26 12:36 | PN ---
Teaching Attending Note Name of Resident: Karlee Díaz ATTENDING PHYSICIAN STATEMENT I saw and evaluated the patient. I reviewed the resident's note and discussed the case with the resident. I agree with the resident's findings and plan as documented. SUBJECTIVE: Ms Alcocer says she is feeling good. Denies cp, sob, n/v. No pain OBJECTIVE: Last Vital Signs Temp Pulse Resp BP Pulse Ox 36.8 C 96 H 19 86/61 L 99 01/26/19 05:34 01/26/19 05:34 01/26/19 05:34 01/26/19 05:34 01/26/19 08:22 Gen: nad, slow/slurred speech Pulm: ctab, on NC CV: rrr w/o m/r/g Abd: +bs, s/nt/nd Ext: no c/c/e but with bullae and ulcerations ASSESSMENT AND PLAN: (1) UTI (urinary tract infection) Assessment/Plan: -appreciate ID assistance -pansensitive e coli -patient with multiple allergies -continue aztreonam Code(s): N39.0 - URINARY TRACT INFECTION, SITE NOT SPECIFIED (2) Acute kidney injury Assessment/Plan: -much improved but not baseline -nephrology following -IVF changed to D5W secondary to hypernatremia Code(s): N17.9 - ACUTE KIDNEY FAILURE, UNSPECIFIED (3) Acute metabolic encephalopathy Assessment/Plan: -not at baseline however per neurology -recommends MRI Code(s): G93.41 - METABOLIC ENCEPHALOPATHY (4) Acute respiratory failure with hypoxia Assessment/Plan: -extubated and resolved -case d/w pulmonary Code(s): J96.01 - ACUTE RESPIRATORY FAILURE WITH HYPOXIA (5) Skin rash Assessment/Plan: -concern for TENS -dermatology performed biopsy -accepted to [facility] ICU but no bed currently available -continue to attempt to transfer as needs burn unit -follow up biopsy Code(s): R21 - RASH AND OTHER NONSPECIFIC SKIN ERUPTION (6) HTN (hypertension), benign Assessment/Plan: -controlled currently Code(s): I10 - ESSENTIAL (PRIMARY) HYPERTENSION (7) History of CVA (cerebrovascular accident) Assessment/Plan: -repeat CT scan unchanged Code(s): Z86.73 - PRSNL HX OF TIA (TIA), AND CEREB INFRC W/O RESID DEFICITS (8) Seizure Assessment/Plan: -continue IV valproate Code(s): R56.9 - UNSPECIFIED CONVULSIONS 35 minutes spent in critical care time with this patient Problem List - Problems (1) UTI (urinary tract infection) Code(s): N39.0 - URINARY TRACT INFECTION, SITE NOT SPECIFIED (2) Acute kidney injury Code(s): N17.9 - ACUTE KIDNEY FAILURE, UNSPECIFIED (3) Acute metabolic encephalopathy Code(s): G93.41 - METABOLIC ENCEPHALOPATHY (4) Acute respiratory failure with hypoxia Code(s): J96.01 - ACUTE RESPIRATORY FAILURE WITH HYPOXIA (5) Skin rash Code(s): R21 - RASH AND OTHER NONSPECIFIC SKIN ERUPTION (6) HTN (hypertension), benign Code(s): I10 - ESSENTIAL (PRIMARY) HYPERTENSION (7) History of CVA (cerebrovascular accident) Code(s): Z86.73 - PRSNL HX OF TIA (TIA), AND CEREB INFRC W/O RESID DEFICITS (8) Seizure Code(s): R56.9 - UNSPECIFIED CONVULSIONS
--- NOTE | 2019-01-26 13:34 | PN ---
Progress Note (short form) - Note Progress Note: Renal follow up for RAMYA Pt seen and examined in the ICU extubated awake but groggy making urine via olivas s/p skin biopsy Vital Signs Temperature 97.7 F 01/26/19 12:00 Pulse Rate 94 H 01/26/19 12:00 Respiratory Rate 21 H 01/26/19 12:00 Blood Pressure 166/95 01/26/19 12:00 O2 Sat by Pulse Oximetry (%) 99 01/26/19 08:22 Intake & Output 01/23/19 01/24/19 01/25/19 01/26/19 23:59 23:59 23:59 23:59 Intake Total 1323.8 3251 4288 2150 Output Total 500 1600 2450 1350 Balance 823.8 1651 1838 800 Weight 102.3 kg 104.78 kg 104.871 kg 112.219 kg awake RRR, NO M/R Dec BS Obese, NT/ND + edema in Le olivas in place CBC, BMP 01/26/19 05:15 01/26/19 05:15 Current Medications Acetaminophen (Ofirmev Injection -) 1,000 mg IVPB Q6H PRN PRN Reason: FEVER Last Admin: 01/23/19 21:35 Dose: 1,000 mg Albuterol Sulfate (Ventolin 0.083% Nebulizer Soln -) 1 amp NEB RQID [facility] Last Admin: 01/26/19 12:26 Dose: 1 amp Albuterol/Ipratropium (Duoneb -) 1 amp NEB Q6H PRN PRN Reason: SHORTNESS OF BREATH Heparin Sodium (Porcine) (Heparin -) 5,000 unit SQ BID [facility] Last Admin: 01/26/19 09:39 Dose: 5,000 unit Aztreonam 1 gm/ Dextrose 50 mls @ 100 mls/hr IVPB BID [facility] Last Admin: 01/26/19 09:37 Dose: 100 mls/hr Acyclovir 700 mg/ Dextrose 114 mls @ 228 mls/hr IVPB Q24H [facility] Last Admin: 01/25/19 21:21 Dose: 228 mls/hr Dextrose (D5w -) 1,000 mls @ 125 mls/hr IV ASDIR [facility] Last Admin: 01/26/19 08:15 Dose: 125 mls/hr Pantoprazole Sodium (Protonix Iv) 40 mg IVPUSH DAILY [facility] Last Admin: 01/26/19 09:37 Dose: 40 mg Silver Sulfadiazine (Silvadene -) 1 applic TP DAILY [facility] Last Admin: 01/26/19 12:24 Dose: 1 applic Timolol Maleate (Timoptic 0.5%) 1 drop OU DAILY [facility] Last Admin: 01/26/19 11:06 Dose: 1 drop Valproate Sodium (Depacon Injection -) 750 mg IVPB BID [facility] Last Admin: 01/26/19 09:37 Dose: 750 mg 58 year old woman with history of hemorragic CVA, seziure disorder, hypertension , hyperlipidemia who presented to the ED with disoreintatoin and found to have RAMYA. #RAMYA secondary to volume depletion in setting of infectio now improving #Altered mental status #Fever #Leukocytoiss #Suspected UTI. #Lactic acidosis now resolved #Elevated CK #Hypernatremia Renal function improving agree with holding isotonic fluids given rising Na and LE edema can maintain on D5W for now Continue aggressive isotonic fluids keep MAP > 65 Vent support as per ICU Abx as per ID f/u cultures awaiting transfer to tertiary care center prognosis is guarded Varun Avery DO
--- NOTE | 2019-01-26 13:50 | PN ---
Progress Note (short form) - Note Progress Note: seen by dermatology s/p skin biopsy yesterday extubated knows she is in the hospital Vital Signs Period Temp Pulse Resp BP Sys/Lewis Pulse Ox Last 24 Hr 97.7 F-99.5 F 89-107 19-25 86-166/61-95 97-100 cor-rrr lungs clear abd soft,nt ext no edema +olivas bullae left thigh (anterior) +skin tear left upper thigh with adjacent blisteres bullae right lateral thigh small bulla on the abdomen bullae left arm CBC, BMP 01/26/19 05:15 01/26/19 05:15 01/24/19 12:30 CSF WBC 7 CSF RBC 1 CSF Glucose 58 CSF Total Protein 58 H Microbiology 01/24/19 12:30 Cerebral Spinal Fluid - Lumbar Puncture Gram Stain - Final 01/24/19 12:30 Cerebral Spinal Fluid - Lumbar Puncture CSF Culture - Preliminary 01/22/19 18:00 Urine - Urine Clean Catch Urine Culture - Final Escherichia Coli 01/22/19 19:35 Blood - Peripheral Venous Blood Culture - Preliminary NO GROWTH OBTAINED AFTER 48 HOURS, INCUBATION TO CONTINUE FOR 3 DAYS. 01/22/19 19:35 Blood - Peripheral Venous Blood Culture - Preliminary NO GROWTH OBTAINED AFTER 48 HOURS, INCUBATION TO CONTINUE FOR 3 DAYS. 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
[2019-01-26] MEDS ORDERED: predniSONE 20 MG TABLET (UD) PO SCH (14:00)
[2019-01-26] MEDS ORDERED: methylPREDNISolone NA SUCC 40 MG/1 ML VIAL IVPUSH SCH (14:45)
[2019-01-26 14:49] VITALS: BMI 36.4
[2019-01-26] MEDS: AMINO ACIDS/PROTEIN HYDROLYS 30 ML LIQUID.PKT PO SCH ×3 (15:18→21:11)
[2019-01-26] MEDS: ACETAMINOPHEN 1000 MG/100 ML VIAL (NON FORMULARY) IVPB PRN (18:10)
[2019-01-26] MEDS ORDERED: morphine CARPU-JECT 2 MG/1 ML DISP.SYRIN IVPUSH SCH (18:45)
[2019-01-26] MEDS ORDERED: morphine SULFATE 4 MG/ML VIAL ONE (18:50)
[2019-01-26] MEDS: MORPHINE SULFATE 2 MG/ML VIAL IVPUSH SCH ×2 (19:15→23:05)
[2019-01-26] MEDS: ACYCLOVIR INJECTION 700 MG in DEXTROSE 5%-WATER - 100 ML IVPB SCH (21:12)
--- NOTE | 2019-01-27 01:42 | DS ---
Physical Exam: SUBJECTIVE: Patient seen and examined. Pt. now hallucinating and making intelligible but nonsensical/inappropriate speech, "I told you I'm not cooking. " OBJECTIVE: Vital Signs Period Temp Pulse Resp BP Sys/Lewis Pulse Ox Last 24 Hr 97.7 F-99.2 F 90-107 19-23 86-166/61-99 98-99 PHYSICAL EXAM GENERAL: Patient is responsive, opening eyes and following commands HEAD: Normal with no signs of trauma. EYES: Pupils equal, round and reactive to light, sclera anicteric, conjunctiva clear. EARS, NOSE, THROAT: Dry mucous membranes, some areas on upper lip concerning for mucosal skin sloughing LUNGS: Breath sounds equal, clear to auscultation bilaterally. No wheezes, and no crackles. Saturating well on nasal cannula HEART: Regular rate and rhythm, normal S1 and S2 without murmur ABDOMEN: Soft, nontender, not distended, normoactive bowel sounds, no guarding, no rebound, no masses. MUSCULOSKELETAL: No bony deformities UPPER EXTREMITIES: 2+ radial pulses, warm, well-perfused. No cyanosis. LOWER EXTREMITIES: 2+ dorsal pedal pulses, warm, well-perfused. No peripheral edema. SKIN: sloughing skin on shins anteriorly with skin break down on the buttocks L> R, sloughing skin around knuckles, sloughing skin on thighs, sloughing skin on arms bilaterally. Dark areas of hyperpigmentation underlying flaccid bullae which are sloughing. Involvement of the oral mucosa. All are worsenining and expanding, placed markings on skin today LABS Laboratory Results - last 24 hr 01/26/19 01/26/19 01/26/19 05:15 05:15 06:47 WBC 9.3 RBC 4.28 Hgb 10.6 L Hct 31.7 L MCV 74.1 L MCH 24.9 L MCHC 33.6 RDW 17.9 H Plt Count 133 L MPV 9.0 Sodium 151 H Potassium 3.5 Chloride 119 H Carbon Dioxide 26 Anion Gap 7 L BUN 66.2 H Creatinine 2.7 H Est GFR (CKD-EPI)AfAm 21.80 Est GFR (CKD-EPI)NonAf 18.81 POC Glucometer 77 Random Glucose 75 Calcium 8.0 L Phosphorus 4.6 Magnesium 2.6 H Total Bilirubin 0.6 AST 12 L ALT 24 Alkaline Phosphatase 87 Total Protein 5.0 L Albumin 2.1 L 01/26/19 01/26/19 01/26/19 13:15 19:09 20:58 WBC RBC Hgb Hct MCV MCH MCHC RDW Plt Count MPV Sodium Potassium Chloride Carbon Dioxide Anion Gap BUN Creatinine Est GFR (CKD-EPI)AfAm Est GFR (CKD-EPI)NonAf POC Glucometer 90 141 165 Random Glucose Calcium Phosphorus Magnesium Total Bilirubin AST ALT Alkaline Phosphatase Total Protein Albumin HOSPITAL COURSE: Date of Admission:01/22/19 Date of Discharge: 01/27/19 Pt. is a 58 y.o. F w/ PMHx. 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 Neurology #Acute Metabolic Encephalopathy 2/2 Sepsis likely 2/[address] unchanged from prior, chronic gliosis, chronic R. parietal lobe infarct CXR: no acute pathology UA: 3+ LE, 53 WBCs, 2+ protein, 2+ blood Urine culture grew tate-sensitive e.coli CSF with WBC 7, RBC 1, Glucose 58, Protein 58 Given Zosyn, Vancomycin, Ampicillin, Acyclovir and Ceftriaxone in ED ID following (Dr. Meadows) appreciate reccs currently on aztreonam 50 mls @ 100 mls/hr IVPB BID and acyclovir 114 mls @ 228 mls/hr IVPB q24h #History of complex partial seizures Neurology consult (Dr. Mcrae) appreciated--> started Depacon 750mg BID Psychiatric Eval. and MRI when feasible. Aggressive IVF Seizure precautions Pulmonology #Acute Hypoxic Respiratory Failure Pt. extubated 01/25/19 and saturating well on NC c/w Duonebs PRN and Albuterol RQID maintain SpO2 above 90% Nephrology #Acute Renal Failure 2/2 UTI Pt. noted to have Cr. around 0.9 on discharge one month ago, now currently 5.4-- >2.7 UA noted as above likely component of hypovolemia and UTI FeNA 0.7% consistent with pre-renal cause of renal failure (ie sepsis/ hypovolemia) Renal US unremarkable(echogenic right kidney indicative of chronic renal disease ), noted some non-specific periportal edema c/w IVF c/w Abx. as above Nephrology consult (Dr. 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 Area of skin involved expanding, now also involving oral mucosa. Skin involvement estimated to be approaching 30% and expanding concerning for TEN. Attempted transfer to [facility] however was placed on a waitlist because no current bed availability Attempted transfer to [facility] however was told that proven biopsy confirming SJS was required prior to transfer Skin Biopsy obtained, will await dermatopath results Will continue to attempt to place patient at a facility capable of providing the necessary management Continue to monitor for expanding wounds, located on bilateral shins, on b/l buttocks L>R on knuckles, b/l thighs, and b/l arms and now on lips Silvadene- apply daily to wounds Petroleum jelly guaze to deep wounds skin marking to assess for expansion Wound care consult Started Prednisone 40mg Daily ---> switched to Solumedrol 40 IVP DAily Cardiovascular #HTN #HLD Trop Negatives Gastrointestinal C/w protonix as ppx for intubation/ sloughing skin lesions FEN switched to D5W @ 125 monitor electrolytes and replete as needed Sodium Controlled Diet as tolerated DVT Ppx. Hep SQ BID Dispo: Pt. accepted at [facility]. Accepting Physician Dr. Holden (MICU). Pt. transported via [facility]. Discharge Summary Reason For Visit: FEVER/ALTERED MENTAL STATUS/ ACUTE KIDNEY INJURY Current Active Problems Altered mental state (Acute) Fever (Acute) UTI (urinary tract infection) (Acute) VRE (vancomycin resistant enterococcus) culture positive (Acute) Acute kidney injury (Acute) Condition: Worsened - Instructions Disposition: TRANSFER ACUTE CARE/OTHER HOSP - Home Medications Comprehensive Discharge Medication List: Ambulatory Orders Nifedipine [Procardia Xl] 60 mg PO DAILY #30 tab 10/26/17 Timolol 0.5% [Timoptic 0.5%] 1 drop OU DAILY #1 bottle 10/26/17 Albuterol 0.083% Nebulizer Emmy [Ventolin 0.083% Nebulizer Soln -] 1 amp NEB RQID amp 11/03/18 Metoprolol Tartrate [Lopressor -] 100 mg PO BID 01/24/19 Oxcarbazepine 300 mg PO BID 01/24/19 - Discharge Referral Referred to [facility] No ATTENDING PHYSICIAN STATEMENT I saw and evaluated the patient. I reviewed the resident's note and discussed the case with the resident. I agree with the resident's findings and plan as documented. SUBJECTIVE: OBJECTIVE: ASSESSMENT AND PLAN:
[2019-01-27 02:28] VITALS: BP 155/98; PULSE 87; TEMP 97.6
--- NOTE | 2019-01-31 11:06 | PATH ---
Surgical Pathology Report Patient Name: MAYNOR VARGAS [facility]. Rec. 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 Specimen(s) Received SHAVE BIOPSY OF SKIN Clinical History History of drug eruption, positive blisters/bullae Final Diagnosis SKIN (SITE NOT SPECIFIED), SHAVE BIOPSY: INTERFACE DERMATITIS WITH EOSINOPHILS AND EPIDERMAL NECROSIS AND BLISTER FORMATION. 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 This distinction is based primarily on the extent of clinical involvement. This case was sent to [facility], [place], [place] and the above diagnosis was rendered there by Dr.Kenneth Romero. (See also complete [facility] report [id number]). Electronically Signed Melissa Peña M.D. Gross Description Received in formalin labeled with the patient's name and indicated on the requisition to be a shave biopsy of the skin, are 2 riojas-brown, unoriented skin fragments averaging 0.6 x 0.3 x 0.1 cm. The specimens are submitted in toto in one cassette. /01/26/2019 saudi01/26/2019
[2019-02-01 10:06] LABS: MUMPS AB IGG CSF < 5.0 AU/mL (<=10.9)
[2019-02-01 20:08] LABS: HERPES SIMPLEX TYPE 1 IGM 0.63 IV (<=0.89)
== END 2019-01-27 03:12 | disposition short-term general hospital (02) | DRG 720 ==
LOC: JER 14:05 → JERBED 20:18 → JICU 01-23 10:18
PROVIDERS: ADMIT Internal Medicine; ATTEND Internal Medicine
PROC: 0CHY7BZ Insertion of Airway into Mouth and Throat, Via Natural or Artificial Opening (ICD-10-PCS; principal; 2019-01-22)
PROC: 5A1945Z Respiratory Ventilation, 24-96 Consecutive Hours (ICD-10-PCS; 2019-01-22)
PROC: 05HM33Z Insertion of Infusion Device into Right Internal Jugular Vein, Percutaneous Approach (ICD-10-PCS; 2019-01-23)
PROC: B513ZZA Fluoroscopy of Right Jugular Veins, Guidance (ICD-10-PCS; 2019-01-23)
PROC: 009U3ZX Drainage of Spinal Canal, Percutaneous Approach, Diagnostic (ICD-10-PCS; 2019-01-23)
PROC: B01BZZZ Fluoroscopy of Spinal Cord (ICD-10-PCS; 2019-01-23)
PROC: 0HBJXZX Excision of Left Upper Leg Skin, External Approach, Diagnostic (ICD-10-PCS; 2019-01-25)
DX: A41.51 Sepsis due to Escherichia coli [E. coli] (principal); L51.1 Stevens-Johnson syndrome; R50.9 Fever, unspecified; G81.94 Hemiplegia, unspecified affecting left nondominant side; M62.82 Rhabdomyolysis; N17.9 Acute kidney failure, unspecified; E87.2 Acidosis; G93.41 Metabolic encephalopathy; E78.5 Hyperlipidemia, unspecified; H54.62 Unqualified visual loss, left eye, normal vision right eye; J96.01 Acute respiratory failure with hypoxia; D72.829 Elevated white blood cell count, unspecified; E78.00 Pure hypercholesterolemia, unspecified; Z87.891 Personal history of nicotine dependence; R65.20 Severe sepsis without septic shock; L53.8 Other specified erythematous conditions; R21 Rash and other nonspecific skin eruption; G40.909 Epilepsy, unspecified, not intractable, without status epilepticus; L81.8 Other specified disorders of pigmentation; N39.0 Urinary tract infection, site not specified; T42.6X5A Adverse effect of other antiepileptic and sedative-hypnotic drugs, initial encounter; T42.0X5A Adverse effect of hydantoin derivatives, initial encounter; Z22.39 Carrier of other specified bacterial diseases; E86.1 Hypovolemia; E87.0 Hyperosmolality and hypernatremia
CPT/HCPCS: 31500; 36415; 36600; 70450-TC; 71045-TC-FY; 76775-TC; 80048; 80053; 80076; 80307; 81003; 82550; 82553; 82565; 82803; 82945; 82962; 83605; 83735; 84100; 84156; 84157; 84300; 84443; 84484; 84540; 85025; 85027; 85610; 85651; 85730; 86140; 86617; 86694; 86735; 86765; 86787; 86788; 86789; 87040; 87070; 87086; 87186; 87205; 87252; 87529; 87899; 88305-TC; 93005; 93010; 94002; 94640; 94660; 95816; 99285-25; J0131; J0878; J1644; J7030